=== PATIENT | female | born 1930 | race Caucasian/White ===

== ENCOUNTER 2016-09-03 08:40 | Inpatient (IN) | payer MEDICARE, OTHER ==
[~2016-09-03] VITALS: Ht 162.6 cm; Wt 64.0 kg
[2016-09-03] VITALS (50 sets, daily range): BP systolic 78–131; BP diastolic 43–71; PULSE 96–120; RESP 10–25; TEMP 98.1
[~2016-09-03 08:40] MED LIST: ACT35 PO; ADV25050 INH; BUS5 PO; CARV6.25 PO; CLON-379 PO; COSO10 LEFT EYE; EPHEDrine SULFATE 50 MG/5 ML SYG ONE; IMIP25TA3 PO; LATA2.5D9 LEFT EYE; LEVO75TA5 PO; LORA-441 PO; MIRA25TA PO; TIOT18CA IH; [UNRECOGNIZED DRUG - CODE] PO
[2016-09-03] MEDS ORDERED: SOD CHLORIDE 0.9% 1,000 ML IV STA (09:06)
[2016-09-03] MEDS ORDERED: morphine 4 MG/ML VIAL IV STA ×2 (09:06→13:43)
[2016-09-03] MEDS ORDERED: ONDANSETRON 4 MG INJ IV STA (09:06)
--- NOTE | 2016-09-03 09:10 | ERA ---
ER Documentation Chief Complaint Date/Time DATE: 09/03/16 TIME: 08:55 Chief Complaint abdomnal pain since last night and vomiting. no HPI 86-year-old female history of hypertension, dyslipidemia, depression, COPD and glaucoma ambulatory to the ED complaining of acute onset of moderate to severe, sharp and achy, generalized abdominal pain which localizes to the right lower quadrant. The pain started last night is become increasingly worse. Nausea with one episode of nonbloody nonbilious emesis but denies diarrhea or constipation. No relieving or exacerbating factors. No dysuria, polyuria, hematuria or flank pain. Denies chest pain or palpitations. No shortness of breath or cough. Chills but no fevers. ROS All systems reviewed and are negative except as per history of present illness. Medications Home Meds Active Scripts Clonidine Hcl* (Clonidine Hcl*) 0.1 Mg Tab, 0.1 MG PO BID for Blood Pressure> 200 Systolic, #10 TAB 4 Refills Prov:LONG DELACRUZ MD 02/13/15 Reported Medications Carvedilol* (Coreg*) 6.25 Mg Tablet, 6.25 MG PO BID, TAB 02/13/15 Salmeterol Xinaf/Fluticasone* (Advair*) 250-50 Diskus Inhaler, 1 INH INH BID, INH 02/13/15 Dorzolamide-Timolol* (Cosopt*) 2%-0.5% Soln, 1 DROP LEFT EYE BID, BOTTLE 02/01/15 Latanoprost (Xalatan) 2.5 Ml Drops, 1 DROP LEFT EYE DAILY 02/01/15 Imipramine Hcl* (Imipramine Hcl*) 25 Mg Tablet, 25 MG PO HS, TAB 02/01/15 Hyoscyamine Sulfate* (Hyoscyamine Sulfate* ODT) 0.125 Mg/Tab Tab.rapdis, 0.125 MG PO Q4H NEEDED, TAB 02/01/15 Levothyroxine Sodium* (Levothyroxine Sodium*) 75 Mcg Tablet, 75 MCG PO DAILY, TAB 02/01/15 Buspirone Hcl* (Buspar*) 5 Mg Tab, 5 MG PO BID, TAB 02/01/15 Mirabegron (Mybetriq) 25 Mg Tab.er.24h, 25 MG PO DAILY, TAB 6/29/15 Lorazepam* (Ativan*) 0.5 Mg Tablet, 0.5 MG PO HS Y for ANXIETY, TAB 02/01/15 Tiotropium [place]* (Spiriva*) 18 Mcg Cap.w.dev, 1 INH IH DAILY, EA 02/01/15 Risedronate* (Actonel*) 35 Mg Tablet, 35 MG PO Q7D, TAB ON Sunday02/01/15 Allergies Allergies: Coded Allergies: No Known Allergy (Unverified , 02/13/15) PMhx/Soc Reviewed in chart. As per HPI. History of Surgery: Yes (CATERACT) Anesthesia Reaction: No Hx Respiratory Disorders: Yes (COPD) Hx Cardiac Disorders: Yes Hx Psychiatric Problems: Yes (ANXIETY) Hx Miscellaneous Medical Probl: Yes (HYPOTHYROID, ANXIETY) Hx Alcohol Use: No Hx Substance Use: Yes (MEDICAL MJ) Hx Tobacco Use: No FmHx No stroke or cancer. Physical Exam Vitals Vital Signs Date Time Temp Pulse Resp B/P Pulse Ox O2 Delivery O2 Flow Rate FiO2 09/03/16 09:30 98.1 85 20 118/78 98 Room Air 09/03/16 08:44 98.0 61 21 95/54 98 Physical Exam GENERAL: Alert, moderate to severe distress due to pain. SKIN: Warm, dry, no rash, No petechiae. No ecchymoses or bruising. HEAD: Atraumatic NECK: Supple, no tenderness, full range of motion. No lymphadenopathy. EYES: Pupils are equal, round and reactive to light, extraocular movements are intact, Conjunctiva, not injected, sclera anicteric. ENT: Mucous membranes are moist. Pharynx is clear without erythema or exudate. CARDIOVASCULAR: Regular rate and rhythm, S1, S2, No murmurs, rubs or gallops. No edema Pulses are 4+ in all extremities. RESPIRATORY: Breath sounds are equal bilaterally. No rales, rhonchi or wheezes. CHEST WALL: No tenderness or deformity. No ecchymosis or bruising GASTROINTESTINAL: Soft, BS present, mildly distended. Moderate right lower quadrant tenderness with rebound but no guarding. No masses or abnormal pulsations.. BACK: No spinal tenderness or paraspinal muscle spasm. No costovertebral angle tenderness. MUSCULOSKELETAL: Normal ROM, no deformity. No calf swelling or tenderness, NEUROLOGIC: Alert and oriented. CN II-XII intact. No focal neurological deficit observed. Normal speech. LYMPHATICS: No gross cervical, axillary or inguinal lymphadenopathy. No Lymphedema. PSYCHIATRIC: Cooperative. Appropriate mood and affect. Patient appears anxious but not depressed.. Result Diagram: 09/03/1636 09/03/1636 Results 24 hrs Laboratory Tests Test 09/03/16 09:36 Alanine Aminotransferase (ALT/SGPT) 30IU/L Albumin 4.0g/dl Albumin/Globulin Ratio 1.05 Alkaline Phosphatase 79IU/L Anion Gap 20 Aspartate Amino Transf (AST/SGOT) 33IU/L Basophils # 0.010^3/ul Basophils % 0.1% Blood Morphology Comment Blood Urea Nitrogen 23mg/dl Calcium Level 9.5mg/dl Carbon Dioxide Level 23mmol/L Chloride Level 99mmol/L Creatinine 1.01mg/dl Direct Bilirubin 0.00mg/dl Eosinophils # 0.010^3/ul Eosinophils % 0.1% Globulin 3.80g/dl Glucose Level 188mg/dl Hematocrit 41.9% Hemoglobin 14.1g/dl Indirect Bilirubin 0.5mg/dl Lipase 46U/L Lymphocytes # 1.110^3/ul Lymphocytes % 7.9% Mean Corpuscular Hemoglobin 28.5pg Mean Corpuscular Hemoglobin Concent 33.6g/dl Mean Corpuscular Volume 84.8fl Mean Platelet Volume 8.7fl Monocytes # 0.310^3/ul Monocytes % 2.1% Neutrophils # 13.010^3/ul Neutrophils % 89.8% Nucleated Red Blood Cells # 0.010^3/ul Nucleated Red Blood Cells % 0.0/100WBC Platelet Count 72464^3/UL Potassium Level 4.6mmol/L Red Blood Count 4.9410^6/ul Red Cell Distribution Width 14.2% Sodium Level 137mmol/L Total Bilirubin 0.5mg/dl Total Protein 7.8g/dl Troponin I < 0.012ng/ml White Blood Count 14.510^3/ul Current Medications Medications (Trade) Dose Ordered Sig/Stephanie Route PRN Reason Start Time Stop Time Status Last Admin Dose Admin Sodium Chloride (NS) 1,000 ml @ 1,000 mls/hr Q1H STAT IV 09/03/16 09:06 09/03/16 10:05 DC 09/03/16 09:24 Morphine Sulfate (morphine) 4 mg ONCE STAT IV 09/03/16 09:06 09/03/16 09:08 DC 09/03/16 09:25 Ondansetron HCl (Zofran Inj) 4 mg ONCE STAT IV 09/03/16 09:06 09/03/16 09:08 DC 09/03/16 09:25 Iohexol 150 ml 150 ml STK-MED ONCE .ROUTE 09/03/16 10:29 09/03/16 10:30 DC Sodium Chloride 100 ml @ ud STK-MED ONCE .ROUTE 09/03/16 10:29 09/03/16 10:30 DC Piperacillin Sod/ Tazobactam Sod 100 ml @ 200 mls/hr ONCE ONCE IVPB 09/03/16 11:30 09/03/16 11:59 DC Dextrose/Sodium Chloride (D5-1/2ns) 1,000 ml @ 125 mls/hr Q8H ONCE IV 09/03/16 11:34 09/03/16 19:33 Ondansetron HCl (Zofran Inj) 4 mg BRIDGE ORDER PRN IV NAUSEA AND/OR VOMITING 09/03/16 12:00 09/04/16 11:59 Acetaminophen (Tylenol Tab) 650 mg ER BRIDGE PRN PO MILD PAIN/FEVER 09/03/16 12:00 09/04/16 11:59 EKG: TIME: 11:39. Sinus tachycardia. Left axis deviation. Q waves in leads V1 and V2. No acute ST segment elevation or depression. No ectopy. EP Interpretation: Abnormal EKG. IMAGING: PROCEDURE: CLINICAL INDICATION: Abdominal Pain TECHNIQUE: CT scan of the abdomen and pelvis with and without contrast was performed on a multidetector high-resolution CT scanner. The patient was scanned both before and following the uncomplicated intravenous administration of 100 cc of Omnipaque 300. Coronal and sagittal reformatted images were obtained from the axial source images. Images were reviewed on a high- resolution PACS workstation. The total exam CTDI equals 15.13 mGy and the total exam DLP equals 790.34 mGy-cm. COMPARISON: None. FINDINGS: CT abdomen: Bibasilar linear scarring and mild centrilobular emphysematous change. No pleural effusion or focal consolidation. The visualized is unremarkable with trace pericardial thickening/effusion. Coronary artery calcifications. The gallbladder is unremarkable. Several sub centimeter hypodensities throughout the right and left hepatic lobe too small to characterize though statistically representing simple cysts. The liver is otherwise normal in density and size. The spleen is normal in size and homogeneous in density. Trace perihepatic and perisplenic free fluid. The stomach is partially collapsed, but is grossly unremarkable. The adrenal glands are symmetric and normal. The kidneys demonstrate normal size, contour and perfusion. No parenchymal abnormality. Adjacent 1.1 and 1 cm right lower pole renal cortical cysts and 2.3 and 1.6 cm right upper and lower pole renal cortical cysts respectively. No renal calculus or obstructive uropathy or mass lesion is seen. The aorta is of normal caliber. Aortic vascular calcifications are present. There is no retroperitoneal lymphadenopathy. The kwadwo hepatis region is clear. The bowel and mesentery, as visualized, are equally unremarkable. CT pelvis: Dilated thick-walled appendix measuring 17 mm in diameter with surrounding inflammatory and phlegmonous changes. No free air or abscess. Small amount of free fluid in the right lower quadrant and pelvis compatible with acute appendicitis. Pericolonic soft tissue stranding in the right lower quadrant and right pericolic gutter. Marked retained fecal material within the colon. No bowel obstruction. The remaining intrapelvic The pelvic organs are normal. The pelvic sidewalls and inguinal regions are clear. The sigmoid colon and rectum are remarkable for sigmoid diverticulosis. Nonspecific calcification in the right inguinal region which may represent calcified lymph node or sequelae of prior infection. The surrounding osseous structures are remarkable for degenerative spondylosis of the spine. Bones: No osteolytic or osteoblastic lesion is detected. IMPRESSION: 1. thick-walled dilated appendix measuring 17 mm in diameter with extensive surrounding inflammatory change and small amount of free fluid in the pelvis and right pericolic gutter compatible with acute appendicitis. No free air or evidence of rupture. No evidence of abscess. 2. Chronic findings as discussed above. 3. Results were discussed with Long Delacruz 09/03/2016 11:14:30 AM . RPTAT: PP Physician Soraya Date Time Electronically viewed and signed by Physician Soraya on 09/03/2016 11:25 STEPHANIE/ Procedures/MDM DOCUMENTS REVIEWED: ED nurse, prior ED, prior records MEDICAL DECISION MAKIN-year-old female history of hypertension, dyslipidemia, depression, COPD and glaucoma ambulatory to the ED complaining of acute onset of moderate to severe, sharp and achy, generalized abdominal pain which localizes to the right lower quadrant. CT reveals a dilated appendix with inflammation consistent with acute appendicitis without perforation. Intravenous fluids and antibiotics initiated. Surgery consulted. Patient be admitted for urgent surgical intervention. Counseled patient regarding diagnosis, diagnostic results and plan for admission. CALLS/CONSULTS: Time 11:25, Dr. Khanna, Recommends admission to [facility]. CALLS/CONSULTS: Time 11:30, Dr. Quinn, will consult. PATIENT CARE TRANSITIONED: Time: 11:30, Dr. Khanna. Departure Diagnosis: Primary Impression: Acute appendicitis Qualified Code: K35.3 - Acute appendicitis with localized peritonitis Additional Impressions: Acute abdominal pain in right lower quadrant Hypertension Qualified Code: I10 - Essential hypertension Condition: Serious LONG DELACRUZ MD Sep 03, 2016 09:10
[2016-09-03 10:14] LABS: BASOPHILS % 0.1 % (0.0-2.0); EOSINOPHILS % 0.1 % (0.0-7.0); HEMATOCRIT 41.9 % (37.0-47.0); HEMOGLOBIN 14.1 g/dl (12.0-16.0); LYMPHOCYTES # 1.1 10^3/ul (0.8-2.9); LYMPHOCYTES % 7.9 % (15.0-51.0); MEAN CORPUSCULAR HEMOGLOBIN 28.5 pg (29.0-33.0); MEAN CORPUSCULAR HGB CONC 33.6 g/dl (32.0-37.0); MEAN CORPUSCULAR VOLUME 84.8 fl (82.0-101.0); MEAN PLATELET VOLUME 8.7 fl (7.4-10.4); MONOCYTE # 0.3 10^3/ul (0.3-0.9); MONOCYTES % 2.1 % (0.0-11.0); NEUTROPHILS % 89.8 % (39.0-77.0); PLATELET COUNT 221 10^3/UL (140-440); RED BLOOD COUNT 4.94 10^6/ul (4.20-5.40); RED CELL DISTRIBUTION WIDTH 14.2 % (11.5-14.5); UNCORRECTED WBC 14.5 10^3/ul (4.8-10.8); WHITE BLOOD COUNT 14.5 10^3/ul (4.8-10.8)
[2016-09-03 10:16] LABS: CHLORIDE 99 mmol/L (97-110)
[2016-09-03 10:17] LABS: POTASSIUM 4.6 mmol/L (3.5-5.1); SODIUM 137 mmol/L (135-144)
[2016-09-03 10:19] LABS: ALANINE AMINOTRANSFERASE 30 IU/L (13-69); ALBUMIN/GLOBULIN RATIO 1.05; ALKALINE PHOSPHATASE 79 IU/L (42-121); ANION GAP 20 (8-16); ASPARTATE AMINO TRANSFERASE 33 IU/L (15-46); BILIRUBIN,INDIRECT 0.5 mg/dl (0-1.1); BILIRUBIN,TOTAL 0.5 mg/dl (0.2-1.3); BLOOD UREA NITROGEN 23 mg/dl (7-20); CARBON DIOXIDE 23 mmol/L (21-31); CONDITION 1; CREATININE 1.01 mg/dl (0.44-1.00); TOTAL PROTEIN 7.8 g/dl (6.1-8.1)
[2016-09-03 10:20] LABS: CALCIUM 9.5 mg/dl (8.4-10.2); GLUCOSE 188 mg/dl (70-220)
[2016-09-03] MEDS ORDERED: IOHEXOL 300MG/ML 150 ML BTL ONE (10:29)
[2016-09-03] MEDS ORDERED: SOD CHLORIDE 0.9% 100 ML ONE (10:29)
[2016-09-03 11:10] LABS: TROPONIN-I < 0.012 ng/ml (0.00-0.12)
--- NOTE | 2016-09-03 11:25 | RADRPT ---
PROCEDURE: CLINICAL INDICATION: Abdominal Pain TECHNIQUE: CT scan of the abdomen and pelvis with and without contrast was performed on a multidet nuria high-resolution CT scanner. The patient was scanned both before and following the uncomplicat ed intravenous administration of 100 cc of Omnipaque 300. Coronal and sagittal reformatted images w ere obtained from the axial source images. Images were reviewed on a high-resolution PACS workstatio n. The total exam CTDI equals 15.13 mGy and the total exam DLP equals 790.34 mGy-cm. COMPARISON: None. FINDINGS: CT abdomen: Bibasilar linear scarring and mild centrilobular emphysematous change. No pleural effusion or focal consolidation. The visualized is unremarkable with trace pericardial thickening/effusion. Coronar y artery calcifications. The gallbladder is unremarkable. Several sub centimeter hypodensities throughout the right and left hepatic lobe too small to characterize though statistically representing simple cysts. The liver i s otherwise normal in density and size. The spleen is normal in size and homogeneous in density. Trace perihepatic and perisplenic free fluid. The stomach is partially collapsed, but is grossly un remarkable. The adrenal glands are symmetric and normal. The kidneys demonstrate normal size, contou r and perfusion. No parenchymal abnormality. Adjacent 1.1 and 1 cm right lower pole renal cortical cysts and 2.3 and 1.6 cm right upper and lower pole renal cortical cysts respectively. No renal kelly culus or obstructive uropathy or mass lesion is seen. The aorta is of normal caliber. Aortic vascular calcifications are present. There is no retroperito ruby lymphadenopathy. The kwadwo hepatis region is clear. The bowel and mesentery, as visualized, a re equally unremarkable. CT pelvis: Dilated thick-walled appendix measuring 17 mm in diameter with surrounding inflammatory and phlegmon ous changes. No free air or abscess. Small amount of free fluid in the right lower quadrant and pe lvis compatible with acute appendicitis. Pericolonic soft tissue stranding in the right lower quadra nt and right pericolic gutter. Marked retained fecal material within the colon. No bowel obstruction. The remaining intrapelvic The pelvic organs are normal. The pelvic sidewall s and inguinal regions are clear. The sigmoid colon and rectum are remarkable for sigmoid diverticu losis. Nonspecific calcification in the right inguinal region which may represent calcified lymph n ode or sequelae of prior infection. The surrounding osseous structures are remarkable for degenerative spondylosis of the spine. Bones: No osteolytic or osteoblastic lesion is detected. IMPRESSION: 1. thick-walled dilated appendix measuring 17 mm in diameter with extensive surrounding inflammator y change and small amount of free fluid in the pelvis and right pericolic gutter compatible with acu te appendicitis. No free air or evidence of rupture. No evidence of abscess. 2. Chronic findings as discussed above. 3. Results were discussed with Mario Murcia 09/03/2016 11:14:30 AM . RPTAT: PP Physician Soraya Date Time Electronically viewed and signed by Physician Soraya on 09/03/2016 11:25 STEPHANIE/
[2016-09-03] MEDS ORDERED: PIPER-TAZO 3.375 GM IV (PMX) 100 ML IVPB ONE (11:30)
[2016-09-03] MEDS ORDERED: DEXTROSE 5%-0.45% NACL 1,000 ML IV ONE (11:34)
[2016-09-03] MEDS ORDERED: ONDANSETRON 4 MG INJ IV PRN ×4 (12:00→17:00)
[2016-09-03] MEDS ORDERED: ACETAMINOPHEN 325 MG TAB PO PRN ×2 (12:00→15:30)
--- NOTE | 2016-09-03 12:17 | RADRPT ---
PROCEDURE: XR Chest. CLINICAL INDICATION: Abdominal pain. TECHNIQUE: Single AP portable chest COMPARISON: 02/01/2015 FINDINGS: The cardiomediastinal silhouette is within normal limits. Coarse interstitial fibrotic change with b ibasilar linear scarring and/or atelectasis. .The lungs are clear though pleural effusion or focal consolidation. No pneumothorax. The osseous structures and soft tissues are unremarkable. IMPRESSION: 1. No evidence for active cardiopulmonary disease. RPTAT:AAJJ Samuel Viveros Physician Date Time Electronically viewed and signed by Physician Soraya on 09/03/2016 12:16 STEPHANIE/
[2016-09-03] MEDS ORDERED: LIDOCAINE 1% (STERILE-PAK) 30 ML INJ ONE (14:40)
[2016-09-03] MEDS ORDERED: BUPIVACAINE 0.25%/EPI (SDV) 30 ML INJ ONE (14:40)
[2016-09-03 14:41] LABS: INR 1.03; PARTIAL THROMBOPLASTIN TIME 28.3 Sec (25.0-35.0); PROTIME 13.5 Sec (12.2-14.2); PT RATIO 1.1
[2016-09-03 14:42] LABS: ADD UMIC YES; URINE BILIRUBIN (Dip) NEGATIVE (NEGATIVE); URINE BLOOD (Dip) TRACE (NEGATIVE); URINE COLOR YELLOW (YELLOW); URINE GLUCOSE (Dip) NEGATIVE (NEGATIVE); URINE KETONES (Dip) NEGATIVE (NEGATIVE); URINE LEUKOCYTE ESTERASE (Dip) NEGATIVE (NEGATIVE); URINE NITRITE (Dip) NEGATIVE (NEGATIVE); URINE TOTAL PROTEIN (Dip) TRACE (NEGATIVE); URINE UROBILINOGEN (Dip) 0.2 E.U./dL (0.1-1.0)
[2016-09-03 14:46] LABS: SQUAMOUS EPITHELIAL CELL,UR FEW; URINE RBCS NONE SEEN /HPF (0)
[2016-09-03] MEDS ORDERED: DEXTROSE 5%-0.45% NACL 1,000 ML IV SCH ×2 (15:04→15:30)
[2016-09-03] MEDS ORDERED: morphine 2 MG INJ IV PRN (15:30)
[2016-09-03] MEDS ORDERED: IBUPROFEN 600 MG TAB PO PRN (15:30)
[2016-09-03] MEDS ORDERED: SUCCINYLCHOLINE CHLORIDE 100 MG/5 ML SYG IV ONE (15:32)
[2016-09-03] MEDS ORDERED: PROPOFOL 20 ML ONE (15:32)
[2016-09-03] MEDS ORDERED: LIDOCAINE 2% (SDV) 5 ML INJ ONE (15:32)
[2016-09-03] MEDS ORDERED: FENTAnyl 50 MCG/ML VIAL ONE (15:33)
[2016-09-03] MEDS ORDERED: PHENYLephrine (100 MCG/ML) 5ML SYG ONE (15:36)
[2016-09-03] MEDS ORDERED: ETOMIDATE 20 MG INJ ONE (15:39)
[2016-09-03] MEDS ORDERED: ONDANSETRON 4 MG INJ ONE (16:01)
[2016-09-03] MEDS ORDERED: DEXAMETHASONE 4 MG/ML 1 ML INJ ONE (16:01)
[2016-09-03] MEDS ORDERED: GLYCOPYRROLATE 0.4 MG INJ ONE ×2 (16:09→16:15)
[2016-09-03] MEDS ORDERED: NEOSTIGMINE 3 MG/3 ML SYRINGE ONE ×2 (16:09→16:15)
[2016-09-03] MEDS ORDERED: HYDROmorphONE (0.2 MG/ML) 10ML SYG IV PRN ×2 (17:00)
[2016-09-03] MEDS ORDERED: FENTAnyl 50 MCG/ML VIAL IV PRN (17:00)
[2016-09-03 17:18] LABS: ADD UMIC YES; URINE BILIRUBIN (Dip) NEGATIVE (NEGATIVE); URINE BLOOD (Dip) 1+ (NEGATIVE); URINE COLOR LT. YELLOW (YELLOW); URINE GLUCOSE (Dip) NEGATIVE (NEGATIVE); URINE KETONES (Dip) NEGATIVE (NEGATIVE); URINE LEUKOCYTE ESTERASE (Dip) NEGATIVE (NEGATIVE); URINE NITRITE (Dip) NEGATIVE (NEGATIVE); URINE TOTAL PROTEIN (Dip) NEGATIVE (NEGATIVE); URINE UROBILINOGEN (Dip) 0.2 E.U./dL (0.1-1.0)
[2016-09-03 17:54] LABS: BACTERIA,URINE RARE; RENAL EPITHELIAL CELLS,URINE RARE
[2016-09-03] MEDS ORDERED: SOD CHLORIDE 0.9% 500 ML IV ONE (18:00)
[2016-09-03] MEDS ORDERED: PIPER-TAZO 3.375 GM IV (PMX) 100 ML IVPB SCH (18:00)
[2016-09-03] MEDS ORDERED: ALBUMIN HUMAN 5% 250 ML ONE (18:05)
[2016-09-03] MEDS ORDERED: EPHEDrine SULFATE 50 MG/5 ML SYG ONE (18:23)
[2016-09-03] MEDS ORDERED: ALBUMIN HUMAN 5% 250 ML IV ONE (18:30)
[2016-09-03] MEDS ORDERED: EPHEDrine SULFATE 50 MG/5 ML SYG IV PRN (18:30)
[2016-09-03] MEDS ORDERED: NORepinephrine 8MG/250 ML (PMX 250 ML IV SCH (19:30)
[2016-09-03] MEDS: SOD CHLORIDE 0.9% 1,000 ML IV SCH (19:30)
[2016-09-03] MEDS ORDERED: ACETAMINOPHEN 1000MG/100ML IV 100 ML IVPB PRN (19:30)
--- NOTE | 2016-09-03 19:40 | CONS ---
DATE OF ADMISSION: 09/03/2016 DATE OF CONSULTATION: 09/03/2016 HISTORY OF PRESENT ILLNESS: Ms. Aguila is an 86-year-old female who had acute onset of generalize d abdominal pain yesterday. Her symptoms persisted overnight and she presented to the emergency alena m at [facility]. She had nausea and 1 episode of emesis. She denies fevers, chil ls or night sweats. Denies prior episodes. Her workup was consistent with acute appendicitis and I was called for consultation. PAST MEDICAL HISTORY: Significant for hypertension, dyslipidemia, depression, COPD, emphysema, glau coma, and hypothyroidism. MEDICATIONS: She takes: 1. Clonidine. 2. Carvedilol. 3. ____ 4. Advair. 5. ____ 6. Xalatan. 7. Imipramine 8. Levothyroxine. 9. BuSpar. 10. Lorazepam. 11. Spiriva. 12. Actonel. ALLERGIES: NO KNOWN DRUG ALLERGIES. PAST SURGICAL HISTORY: She had cataract surgery as well. SOCIAL HISTORY: She drinks occasionally. Denies smoking or drug use. PHYSICAL EXAMINATION: GENERAL: She is a well-nourished female in some mild distress. VITAL SIGNS: She is currently afebrile. Vital signs stable. CHEST: Clear to auscultation bilaterally. HEART: Regular rhythm. ABDOMEN: Soft, nondistended but significant right lower quadrant tenderness. LABORATORY DATA: Reveal a white count of 15, hematocrit of 42, platelets of 221. Sodium 137, potas sium 4.6, chloride 99, CO2 of 23, BUN and creatinine 23 and 1, and glucose of 188. Her CT is consis tent with acute appendicitis. ASSESSMENT AND PLAN: Ms. Aguila is an 86-year-old female with acute appendicitis. I discussed la paroscopic, possible open appendectomy with the patient and her family. All benefits, risks, altern atives were discussed in detail, questions answered. The patient elected to proceed. Dictated By: TRISTAN MYLES/NTS Conf#: [id number] DID#: [id number]
[2016-09-03] MEDS ORDERED: NORepinephrine 8MG/250 ML (PMX 250 ML ONE (19:48)
--- NOTE | 2016-09-03 20:13 | OPR ---
DATE OF OPERATION: 09/03/2016 PREOPERATIVE DIAGNOSIS: Acute appendicitis. POSTOPERATIVE DIAGNOSIS: Acute appendicitis. PROCEDURE: Laparoscopic appendectomy. SURGEON: Tristan Quinn MD CASTING AND PASTING SUPERVISOR: None. ANESTHESIA: General endotracheal. ANESTHESIOLOGIST: Dr. Burks ESTIMATED BLOOD LOSS: Minimal. COMPLICATIONS: None. SPECIMENS: Appendix. FINDINGS: Necrotic appendix but not perforated. INDICATIONS: Ms. Aguila is an 86-year-old female with acute onset of generalized abdominal pain l ocalizing to her lower abdomen. She came to the ER at [facility]. Her workup was consistent with acute appendicitis. I was called for consultation. I discussed laparoscopic, poss ible open appendectomy with the patient. All benefits, risks, alternatives were discussed in detail , questions answered. The patient elected to proceed. PROCEDURE: The patient was brought to the operating room, placed supine on the table. After preope rative antibiotics and SCDs were placed, the patient was intubated. The abdomen was cleaned, preppe d and draped in usual sterile fashion. All incisions were infiltrated with 1% lidocaine with epinep hrine, 0.5% Marcaine prior to incision. A 5 mm incision was made in the umbilicus. Using a 5 mm la paroscope containing trocar, the abdomen was entered under direct vision, insufflated to 15 mmHg of CO2. The following trocars were then placed under direct vision: A right lower quadrant 5 mm, a le ft lower quadrant 12 mm. Emanating from the cecum was an obvious acute appendicitis. It was not ru ptured or perforated but necrotic. The base was not involved, and I was able to make a rent at the base of the mesentery and divide the cecum at the base of the appendix with a 35 mm Endo linear cutt er white load. The appendiceal mesentery was then divided with a 35 mm Endo linear cutter white margaret d. The appendix was placed in EndoCatch bag, removed from 12 mm trocar site. I irrigated out the r ight lower quadrant and pelvis until effluent was clear. At this point, I noted there was some oozi ng from the staple lines which was controlled with 10 mm clip gas regulator repairer. At this point, I irrigated o ut the pelvis and right lower quadrant once again until effluent was clear. My staple lines were he mostatic. I desufflated the abdomen and removed all trocars. Fascia of the 12 mm trocar site was c losed with 0 Vicryl. Skin incisions were closed with 4-0 Monocryl, Mastisol, Steri-Strips. The pat ient tolerated procedure well, was extubated in the OR and transferred to recovery room in stable co ndition. Dictated By: TRISTAN MYLES/VU Conf#: [id number] DID#: [id number]
[2016-09-03] MEDS ORDERED: PIPER-TAZO 3.375 GM IV (PMX) 0 ML ONE (21:54)
[2016-09-03] MEDS ORDERED: DOCUSATE SODIUM 100 MG CAP PO ONE (21:55)
[2016-09-03] MEDS: PIPER-TAZO 3.375 GM IV (PMX) 100 ML IVPB SCH (21:56)
[2016-09-03] MEDS: DOCUSATE SODIUM 100 MG CAP PO SCH (21:57)
[2016-09-03] MEDS: FAMOTIDINE 20 MG INJ IV SCH (22:22)
[2016-09-03] MEDS ORDERED: morphine 2 MG INJ ONE (22:53)
[2016-09-03] MEDS: morphine 2 MG INJ IV PRN (22:55)
[2016-09-04] VITALS (45 sets, daily range): BP systolic 100–141; BP diastolic 54–102; PULSE 94–103; RESP 12–29; Ht 162.6 cm; Wt 64.0 kg
[2016-09-04] MEDS: SOD CHLORIDE 0.9% 1,000 ML IV SCH (03:30)
[2016-09-04] MEDS: morphine 2 MG INJ IV PRN ×2 (04:13→11:50)
[2016-09-04] MEDS: PIPER-TAZO 3.375 GM IV (PMX) 100 ML IVPB SCH ×3 (06:10→21:22)
--- NOTE | 2016-09-04 06:57 | HP ---
DATE OF ADMISSION: 09/03/2016 PRESENTING COMPLAINT: Abdominal pain. HISTORY OF PRESENTING COMPLAINT: Ms. Aguila is an 86-year-old female with a past medical history of high blood pressure and dyslipidemia who presents to emergency room today, brought in by her daug hter, because of acute onset of right lower quadrant abdominal pain that started out generalized and was associated with 1 episode of nonbilious vomiting. The patient denies history of similar sympto ms in the past, and a CT scan of the ____ was confirmatory of an enlarged and inflamed appendix, and patient has been admitted for acute appendicitis. PAST MEDICAL HISTORY: 1. Hypertension. 2. Dyslipidemia. 3. Depression. 4. COPD. 5. Glaucoma. 6. Positive history of hypothyroidism as well as ____ per record. HOME MEDICATIONS: 1. Coreg 6.25 b.i.d. 2. Advair inhalation 1 inhalation b.i.d. 3. Dorzolamide/timolol to left eye. 4. Xalatan 1 drop left eye daily. 5. Imipramine 25 mg p.o. at bedtime. 6. ____ sulfate as needed. 7. Levothyroxine 75 mcg daily. 8. BuSpar 5 mg b.i.d. 9. Myrbetriq 25 mg daily. 10. Lorazepam as needed. 11. Spiriva 1 inhalation daily. 12. Actonel 35 mg every week. ALLERGIES: SHE HAS NO KNOWN DRUG ALLERGIES. SOCIAL HISTORY: The patient is a previous smoker, does not smoke anymore. Denies alcohol or illic it drug use. The patient also will use medical marijuana as needed. FAMILY HISTORY: Noncontributory. REVIEW OF SYSTEMS: I did a 12-point review of systems, and pertinent findings are as noted in HPI. PHYSICAL EXAMINATION: VITAL SIGNS: Temperature 98.1, pulse 85, respirations 20, blood pressure 118/78, saturation 98% on room air. GENERAL: The patient was alert. She was slightly sleepy. She had been medicated for pain, but she was able to participate in history taking. She was in mild distress. HEENT: Head is normocephalic. Pupils are equal, round and reactive. Mucous membranes are slightly dry. Posterior pharynx was clear of exudate. NECK: Supple, nontender. CHEST: Clear to auscultation with fairly quiet breath sounds bilaterally. CARDIOVASCULAR: S1 and S2 without murmurs. ABDOMEN: Soft with minimal guarding in right lower quadrant but no masses. Bowel sounds all quadra nts. EXTREMITIES: There was no lower extremity edema. NEUROLOGIC: She had no focal deficits. SKIN: Devoid of rash or jaundice. LABORATORY VALUES: Leukocytosis of 14,000 was noted. The rest of her CBC was basically unremarkabl e, but her basic metabolic profile was ____ for a BUN of 23 and a creatinine of 0.01. Her LFTs were normal. Her first troponin was negative. Lipase levels were normal as well. Immediately she was medicated for pain with morphine and started on broad spectrum antibiotic with Z osyn as well as given IV fluid, dextrose with half-normal saline. IMAGING: A CT of the abdomen and pelvis as reported earlier did show a dilated ____ appendix measur ing 17 mm in diameter with surrounding inflammatory and phlegmonous changes. No free air or abscess . Small amount of free fluid in right lower quadrant and pelvis compatible with an active appendici tis. Mild retained fecal material within the colon, another nonspecific finding. A chest x-ray did not show any acute cardiopulmonary deficits on my review. An EKG was pending at the time of my review. ASSESSMENT: An 86-year-old female with: 1. Acute appendicitis. 2. Leukocytosis secondary to #1. 3. Hypertension. 4. Hypothyroidism. 5. Chronic obstructive pulmonary disease. 6. Glaucoma. 7. Depression. 8. Mild acute renal insufficiency, rule out chronic kidney disease. 9. Constipation. PLAN: Admit the patient to the floor and continue empiric antibiotics as well as IV fluid and pain control. General surgeon Dr. Quinn has been consulted. He will review the patient, and it is my u nderstanding that he has planned surgery for about 3:00 this afternoon. We will keep patient n.p.o. and await his review and final recommendation. Postoperatively, we will resume patient's other herb e medications as tolerated, and further interventions will depend on her clinical course. For proph ylaxis, she will be put on Pepcid and SCDs. Overall evaluation time has been about 40 minutes. Addendum: I was called to review patient in the PACU postoperatively because of persistent blood pr essure in the 80s. Upon speaking to the nurse at bedside, the patient had received a total of 3500 mL of different kinds of fluid including normal saline as well as lactated Ringer's, and her systoli c blood pressure still kept fluctuating in the 70s and 80s with heart rate in the low 100s. The pat cherry, however, had no symptoms. The nurses had put her in the Trendelenburg position, and she was c omfortable. She also denied pain at her operative site. After ____ I made a decision to transfer t he patient to the intensive care unit for close observation and monitoring. The patient was not sta rted on pressor support at this time. I will attempt another fluid bolus with normal saline of only 500 mL to prevent fluid overload, and I will maintain her on normal saline infusion. I, however, o rdered Levophed to be commenced to maintain the patient's systolic blood pressure 80 mmHg or more, a nd I will be ordering a 2D echo for further evaluation and will see how she does. Dictated By: CARLITO HINES MD, BA/VU Conf#: [id number] DID#: [id number]
[2016-09-04] MEDS ORDERED: PHENTOLAMINE 5 MG INJ SC ONE (08:00)
[2016-09-04] MEDS: ENOXAPARIN 40 MG/0.4 ML SYG SC SCH (08:30)
[2016-09-04] MEDS: DOCUSATE SODIUM 100 MG CAP PO SCH ×2 (09:00→21:00)
[2016-09-04] MEDS: FAMOTIDINE 20 MG INJ IV SCH ×2 (09:00→21:22)
[2016-09-04 09:54] LABS: BASOPHILS % 0.1 % (0.0-2.0); HEMATOCRIT 37.1 % (37.0-47.0); HEMOGLOBIN 12.5 g/dl (12.0-16.0); LYMPHOCYTES # 1.1 10^3/ul (0.8-2.9); LYMPHOCYTES % 6.4 % (15.0-51.0); MEAN CORPUSCULAR HEMOGLOBIN 28.6 pg (29.0-33.0); MEAN CORPUSCULAR HGB CONC 33.7 g/dl (32.0-37.0); MEAN CORPUSCULAR VOLUME 84.9 fl (82.0-101.0); MEAN PLATELET VOLUME 8.4 fl (7.4-10.4); MONOCYTES % 5.9 % (0.0-11.0); NEUTROPHIL # 14.9 10^3/ul (1.6-7.5); NEUTROPHILS % 87.6 % (39.0-77.0); PLATELET COUNT 149 10^3/UL (140-440); RED BLOOD COUNT 4.37 10^6/ul (4.20-5.40); RED CELL DISTRIBUTION WIDTH 14.8 % (11.5-14.5)
[2016-09-04 09:56] LABS: CONDITION 1; LH ANALYZER COMMENTS 1; SUSPECT 1
--- NOTE | 2016-09-04 13:22 | PN ---
DATE: 09/04/2016 SUBJECTIVE: The patient complaining of some abdominal discomfort and pain at times. She says she i s passing minimal gas, still on pressor support. OBJECTIVE VITAL SIGNS: Stable, saturating at 94% on 3 liters nasal cannula. GENERAL: The patient is lying in bed, answering questions appropriately, in mild distress but alert . HEENT: Pupils equal, round, react to light. Extraocular muscles intact. NECK: Supple, no thyromegaly. LUNGS: Clear to auscultation bilaterally. CARDIOVASCULAR: S1, S2 heard. No rubs or gallops. ABDOMEN: Tenderness to palpation, slightly distended in the mid abdomen area, but otherwise no rebo und or guarding. Normal bowel sounds. MUSCULOSKELETAL: No lower extremity edema bilaterally. NEUROLOGIC: No focal deficits. LABORATORY DATA: CBC shows WBC 17.0, hemoglobin 12.5, hematocrit 37.1, platelets of 149. There is no BMP from this morning. ASSESSMENT AND PLAN: 1. An 86-year-old female with history of hypertension, high cholesterol who presented with acute ap pendicitis status post laparoscopic appendectomy. Now with some postop hypotension. 2. Again, abdominal pain secondary to appendicitis. Again, she underwent laparoscopic appendectomy yesterday, postop day #1. Continue ICU care for now as her blood pressure is low. Follow up gener al surgery recommendations. She is on a clear liquid diet for now, antiemetic and pain medicines fo r control of those symptoms. 3. Hypotension. Again, appears to be postop. She did get IV fluids yesterday. Again, continue pr esent support. Try to wean down as tolerated. Continue to monitor for now. 4. Leukocytosis, most likely secondary to #1. There are no signs of any fevers. Continue to monit or for now, especially given her hypotension. 5. Mild renal insufficiency, resolving. Continue to monitor for now. 6. History of high cholesterol. Check a lipid panel. Continue to monitor for now. 7. Hypertension. Again, the patient is hypotensive at this time. Hold blood pressure medicines. 8. History of chronic obstructive pulmonary disease, no present issues. Continue DuoNeb p.r.n. 9. History of depression. Continue to monitor for now. 10. Hypothyroidism. Check thyroid panel. 11. Gastrointestinal prophylaxis. H2 gavin. 12. Deep venous thrombosis prophylaxis, Lovenox. TIME SPENT WITH PATIENT TODAY: 40 minutes. Dictated By: LUIS DANIEL RICHARDSON Conf#: [id number] DID#: [id number]
[2016-09-04] MEDS: HYDROCODONE/APAP (5/325) TAB PO PRN ×2 (14:05→22:44)
[2016-09-04 14:12] LABS: ALBUMIN 3.2 g/dl (3.3-4.9); POTASSIUM 4.4 mmol/L (3.5-5.1)
[2016-09-04 14:14] LABS: CREATININE 0.79 mg/dl (0.44-1.00)
[2016-09-04 14:15] LABS: ALBUMIN/GLOBULIN RATIO 0.91; BILIRUBIN,INDIRECT 0.2 mg/dl (0-1.1); BILIRUBIN,TOTAL 0.2 mg/dl (0.2-1.3); CALCIUM 7.9 mg/dl (8.4-10.2); TOTAL PROTEIN 6.7 g/dl (6.1-8.1)
[2016-09-04 14:16] LABS: MAGNESIUM 1.4 mg/dl (1.7-2.5)
[2016-09-04 15:31] LABS: HEMATOCRIT 40.1 % (37.0-47.0); HEMOGLOBIN 12.8 g/dl (12.0-16.0); MEAN CORPUSCULAR HEMOGLOBIN 28.2 pg (29.0-33.0); MEAN CORPUSCULAR VOLUME 87.9 fl (82.0-101.0); MEAN PLATELET VOLUME 9.5 fl (7.4-10.4); PLATELET COUNT 128 10^3/UL (140-440); RED BLOOD COUNT 4.56 10^6/ul (4.20-5.40); RED CELL DISTRIBUTION WIDTH 14.7 % (11.5-14.5); UNCORRECTED WBC 17.5 10^3/ul (4.8-10.8); WHITE BLOOD COUNT 17.5 10^3/ul (4.8-10.8)
[2016-09-04 15:34] LABS: CONDITION 1; LH ANALYZER COMMENTS 1; SUSPECT 1
[2016-09-04 16:49] LABS: LYMPHOCYTES # 1.4 10^3/ul (0.8-2.9); MONOCYTE # 1.1 10^3/ul (0.3-0.9); NEUTROPHIL # 10.2 10^3/ul (1.6-7.5)
[2016-09-04 16:50] LABS: BURR CELLS 1+
--- NOTE | 2016-09-05 04:53 | PN ---
DATE: 09/04/2016 SUBJECTIVE: Ms. Aguila is a postoperative day 1 from a laparoscopic appendectomy. The patient is feeling hungry. She is tolerating clears. OBJECTIVE VITAL SIGNS: She is afebrile. Vital signs stable. ABDOMEN: Soft and nontender, with some bilateral lower quadrant tenderness. LABORATORY DATA: Reveal a white count of 17, hematocrit of 40, and platelets of 128. Sodium 139, p otassium 4.4, chloride 104, CO2 of 21, BUN and creatinine of 15 and 0.8 and glucose of 102. ASSESSMENT AND PLAN: Ms. Aguila is an 86-year-old female with status post a laparoscopic appendec dolores. 1. She was moved to the Intensive Care Unit for , which is resolved. 2. She has good urine output today, which is over 1700 mL. 3. Continue antibiotics. 4. Will likely be able to be discharged on Sunday. Dictated By: TRISTAN MYLES/VU Conf#: [id number] DID#: [id number]
[2016-09-05] MEDS: PIPER-TAZO 3.375 GM IV (PMX) 100 ML IVPB SCH ×3 (06:34→22:45)
[2016-09-05] MEDS: ENOXAPARIN 40 MG/0.4 ML SYG SC SCH (06:36)
[2016-09-05 07:55] VITALS: BP 109/55; RESP 20
[2016-09-05 08:00] VITALS: RESP 20
[2016-09-05] MEDS: DOCUSATE SODIUM 100 MG CAP PO SCH ×2 (08:47→20:39)
[2016-09-05] MEDS: FAMOTIDINE 20 MG INJ IV SCH ×2 (08:47→20:39)
[2016-09-05 10:45] LABS: HEMATOCRIT 37.2 % (37.0-47.0); HEMOGLOBIN 12.1 g/dl (12.0-16.0); MEAN CORPUSCULAR HEMOGLOBIN 28.2 pg (29.0-33.0); MEAN CORPUSCULAR HGB CONC 32.5 g/dl (32.0-37.0); MEAN PLATELET VOLUME 8.8 fl (7.4-10.4); PLATELET COUNT 172 10^3/UL (140-440); RED BLOOD COUNT 4.27 10^6/ul (4.20-5.40); RED CELL DISTRIBUTION WIDTH 14.6 % (11.5-14.5); UNCORRECTED WBC 21.3 10^3/ul (4.8-10.8); WHITE BLOOD COUNT 21.3 10^3/ul (4.8-10.8)
[2016-09-05 11:03] LABS: CONDITION 1; LH ANALYZER COMMENTS 1; SUSPECT 1
[2016-09-05 11:04] LABS: POTASSIUM 3.6 mmol/L (3.5-5.1)
[2016-09-05 11:07] LABS: CREATININE 0.88 mg/dl (0.44-1.00)
[2016-09-05 11:08] LABS: CALCIUM 8.1 mg/dl (8.4-10.2)
--- NOTE | 2016-09-05 11:10 | PN ---
Date/Time of Note Date/Time of Note DATE: 09/05/16 TIME: 11:07 Assessment/Plan VTE Prophylaxis VTE Prophylaxis Intervention: LMWH Lines/Catheters IV [facility] Saline Lock Urinary Cath still in place: Yes Reason Cath still needed: urinary retention Assessment/Plan Chief Complaint/Hosp Course ASSESSMENT AND PLAN: 86-year-old female with history of hypertension, high cholesterol who presented with acute appendicitis status post laparoscopic appendectomy, with some postop hypotension - resolved. 1. Again, abdominal pain secondary to appendicitis. Again, she underwent laparoscopic appendectomy yesterday, postop day # 2. - continue PT, Follow up general surgery recommendations. - soft diet for now, antiemetic and pain medicines for control of those symptoms. 3. Hypotension. Again, appears to be postop- and now resolved. She did get IV fluids yesterday. - Continue to monitor for now. 4. Leukocytosis, most likely secondary to #1. There are no signs of any fevers. - Continue to monitor for now. 5. Mild renal insufficiency, resolving. Continue to monitor for now. 6. History of high cholesterol. Check a lipid panel. Continue to monitor for now. 7. Hypertension. Again, the patient is hypotensive at this time. Hold blood pressure medicines. 8. History of chronic obstructive pulmonary disease, no present issues. Continue DuoNeb p.r.n. 9. History of depression. Continue to monitor for now. 10. Hypothyroidism- f/u thyroid panel. 11. Gastrointestinal prophylaxis. H2 gavin. 12. Deep venous thrombosis prophylaxis, Lovenox. Problems: Subjective 24 Hr Interval Summary Free Text/Dictation Pt out of ICU now, seen by surgery team, no acute events overnight. Exam/Review of Systems Vital Signs Vitals Vital Signs Date Time Temp Pulse Resp B/P Pulse Ox O2 Delivery O2 Flow Rate FiO2 09/05/16 07:55 98.2 105 20 109/55 81 09/05/16 02:20 5.0 09/04/16 20:12 40 09/04/16 20:00 Nasal Cannula Intake and Output 09/04/16 09/04/16 09/05/16 15:00 23:00 07:00 Intake Total 530 ml 210 ml 1420 ml Output Total 536 ml 155 ml 700 ml Balance -6 ml 55 ml 720 ml Exam GENERAL: The patient is lying in bed, answering questions appropriately, NAD HEENT: Pupils equal, round, react to light. Extraocular muscles intact. NECK: Supple, no thyromegaly. LUNGS: Clear to auscultation bilaterally. CARDIOVASCULAR: S1, S2 heard. No rubs or gallops. ABDOMEN: Tenderness to palpation, slightly distended in the mid abdomen area, but otherwise no rebound or guarding. Normal bowel sounds. MUSCULOSKELETAL: No lower extremity edema bilaterally. NEUROLOGIC: No focal deficits. Results Result Diagram: 09/05/16 1005 09/04/16 0923 Results 24 hrs Laboratory Tests Test 09/04/16 13:15 09/05/16 10:05 Band Neutrophils % 28.0 H Blood Morphology Comment Hematocrit 40.1 37.2 Hemoglobin 12.8 12.1 Lymphocytes # 1.4 Pending Lymphocytes % 8.0 L Pending Mean Corpuscular Hemoglobin 28.2 L 28.2 L Mean Corpuscular Hemoglobin Concent 32.0 32.5 Mean Corpuscular Volume 87.9 87.0 Mean Platelet Volume 9.5 8.8 Monocytes # 1.1 H Pending Monocytes % 6.0 Pending Neutrophils # 10.2 H Pending Neutrophils % 58.0 Pending Platelet Count 128 L 172 # Red Blood Count 4.56 4.27 Red Cell Distribution Width 14.7 H 14.6 H White Blood Count 17.5 H 21.3 #H Basophils # Pending Basophils % Pending Eosinophils # Pending Eosinophils % Pending Nucleated Red Blood Cells # Pending Nucleated Red Blood Cells % Pending Medications Medications Current Medications Piperacillin Sod/ Tazobactam Sod (Zosyn 3.375gm/ 100 ml (Pmx)) 100 ml @ 200 mls /hr Q8 IVPB Last administered on 09/05/16 06:34; Admin Dose 200 MLS/HR; Start 09/03/16 at 22:00 Famotidine (Pepcid Iv) 20 mg BID IV Last administered on 09/05/16 08:47; Admin Dose 20 MG; Start 09/03/16 at 21:00 Docusate Sodium (Colace) 100 mg BID PO Last administered on 09/05/16 08:47; Admin Dose 100 MG; Start 09/03/16 at 21:00 Ondansetron HCl (Zofran Inj) 4 mg Q6H PRN IV NAUSEA AND/OR VOMITING; Start at 15:30 Acetaminophen (Tylenol Tab) 650 mg Q6H PRN PO PAIN LEVEL 1-3 OR FEVER; Start at 15:30 Ibuprofen (Motrin) 600 mg Q6H PRN PO PAIN LEVEL 1-3; Start 09/03/16 at 15:30 Morphine Sulfate (morphine) 2 mg Q2H PRN IV PAIN LEVEL 8-10 Last administered on 09/04/16 11:50; Admin Dose 2 MG; Start 09/03/16 at 15:30 Acetaminophen/ Hydrocodone Bitart ([place] (5/325)) 1 tab Q6H PRN PO PAIN LEVEL 4 -7 Last administered on 09/04/16 22:44; Admin Dose 1 TAB; Start 09/03/16 at 15: 30 Enoxaparin Sodium (Lovenox) 40 mg DAILY@07 SC Last administered on 09/05/16 06 :36; Admin Dose 40 MG; Start 09/04/16 at 07:00 LUIS DANIEL MICHEL Sep 05, 2016 11:10
[2016-09-05] MEDS: HYDROCODONE/APAP (5/325) TAB PO PRN (11:53)
[2016-09-05 13:50] LABS: LYMPHOCYTES # 2.3 10^3/ul (0.8-2.9); MONOCYTE # 0.6 10^3/ul (0.3-0.9); NEUTROPHIL # 14.7 10^3/ul (1.6-7.5)
[2016-09-05] MEDS ORDERED: ALBUTEROL/IPRATROPIUM (NEB) 3 ML AMP HHN PRN (15:00)
--- NOTE | 2016-09-05 16:58 | RADRPT ---
PROCEDURE: XR Chest. CLINICAL INDICATION: Shortness of breath. TECHNIQUE: Single frontal view. COMPARISON: 09/03/2016. FINDINGS: There is consolidation at the right lung base consistent with pneumonia, worse than seen previously. There is left basilar atelectasis or pneumonia, also worse than seen previously. The heart size is normal. There are small bilateral pleural effusions. There is no pneumothorax. IMPRESSION: 1. Worse appearance of the lung bases consistent with atelectasis or pneumonia. Right is worse chantelle n left. 2. Small bilateral pleural effusions. RPTAT: QQ .Elvis Henderson MD, MD Date Time Electronically viewed and signed by .Elvis Henderson MD, on 09/05/2016 16:58 .R/
[2016-09-05] MEDS ORDERED: FUROSEMIDE 20 MG INJ IV SCH (17:30)
[2016-09-05] MEDS ORDERED: LORAZEPAM 0.5 MG TAB PO PRN (17:30)
[2016-09-05] MEDS: ALBUTEROL/IPRATROPIUM (NEB) 3 ML AMP HHN SCH ×2 (17:58→20:19)
--- NOTE | 2016-09-05 18:06 | PN ---
DATE: 09/05/2016 SUBJECTIVE: Ms. Aguila is now postoperative day 2 from a laparoscopic appendectomy. She is tyron ating clears. Passing flatus minimally. She is afebrile since surgery. OBJECTIVE: VITAL SIGNS: Her heart rate is 105, blood pressure 109/55. ABDOMEN: Soft, mildly distended with some left lower quadrant tenderness. LABORATORY DATA: Today reveal a white count of 21, hematocrit of 37 and platelets of 172. Sodium 1 38, potassium 3.6, chloride 104, CO2 of 24, BUN and creatinine 16 and 0.9, and glucose of 90. ASSESSMENT AND PLAN: Ms. Aguila is an 86-year-old female status post laparoscopic appendectomy, p ostop day #2. 1. Continue clears. 2. Mild ileus. We will prescribe stool softeners. 3. Her WBC has continued to increase, we will monitor and repeat tomorrow. Dictated By: TRISTAN MYLES/VU Conf#: [id number] DID#: [id number]
[2016-09-05] MEDS: FUROSEMIDE 40 MG INJ IV SCH (18:16)
[2016-09-05] MEDS: POLYETHYLENE GLYCOL 17 GM PACKET GTB SCH (18:16)
[2016-09-05] MEDS ORDERED: VITAMIN A & D 5 GM OINT PACKET TOP ONE (20:36)
[2016-09-05] MEDS: SALMETEROL/FLUTICASONE 250/50 INHA INH SCH (20:39)
[2016-09-05] MEDS: morphine 2 MG INJ IV PRN (20:42)
[2016-09-05] MEDS: DORZOLAMIDE/TIMOLOL 10 ML OPH LEFT EYE SCH (20:46)
[2016-09-05] MEDS: BUSPIRONE 5 MG TAB PO SCH (20:46)
[2016-09-05 21:29] VITALS: BP 154/74; RESP 20
--- NOTE | 2016-09-05 21:39 | RADRPT ---
Echocardiogram Report Patient Name: CHARLOTTE CASILLAS Gender: Female Date: 1930 Study Date: 04-Sep-2016 Buffing Wheel Inspector: Kwame Steele RDCS Location: 106 Ref. Physician: CARLITO HINES Quality: Technically Difficult Study Procedures: Transthoracic echocardiogram with complete 2D, M-Mode, and doppler examination. Indications: Hypotension. 2D/M Mode Doppler Measurement Value Normal Ranges Measurement Value Normal Ranges LVIDd 2D 3.7 3.5 - 5.6 cm AV Peak Parker 1.2 m/sec LVIDs 2D 2.5 2.1 - 4.1 cm AV Peak PG 6.0 mmHg LVPWd 2D 0.7 0.6 - 1.1 cm LVOT Peak Parker 1.2 m/sec IVSd 2D 0.8 0.6 - 1.1 cm LVOT Peak PG 5.9 mmHg AoR Diam 2D 2.7 2.0 - 3.7 cm EDV 2D 59.6 cm3 ESV 2D 14.9 cm3 LA Dimen 2D 2.7 2.3 - 4.0 cm Findings Left Ventricle: Normal left ventricular systolic function. Normal left ventricular cavity size. Normal left ventricular wall thickness. Ejection fraction is visually estimated at 65 %. Right Ventricle: Normal right ventricular size. Normal right ventricular systolic function. Left Atrium: The left atrium is normal in size. Right Atrium: The right atrium is normal in size. Mitral Valve: Mitral valve leaflets appear mildly thickened. Mild mitral annular calcification. Trace mitral regurgitation. Aortic Valve: Normal appearance of the aortic valve. No significant aortic stenosis or insufficiency. Tricuspid Valve: Normal appearance and function of the tricuspid valve with trace physiologic regurgitation. Pericardium: Normal pericardium with no significant pericardial effusion. Aorta: Normal aortic root. IVC: Normal size and normal respiratory collapse consistent with normal right atrial pressure. Conclusions Normal left ventricular systolic function. Normal left ventricular cavity size. Normal left ventricular wall thickness. Ejection fraction is visually estimated at 65 %. Normal right ventricular size. Normal right ventricular systolic function. The left atrium is normal in size. The right atrium is normal in size. No significant valvular stenosis or regurgitation seen. Normal pericardium with no significant pericardial effusion. Electronically Signed By: Taco Castillo 05-Sep-2016 21:38:58 -0800 Patient Name: CHARLOTTE CSAILLAS Study Date: 04-Sep-2016 [id number]
[2016-09-06] MEDS: ALBUTEROL/IPRATROPIUM (NEB) 3 ML AMP HHN SCH ×2 (01:21→05:08)
[2016-09-06] MEDS: morphine 2 MG INJ IV PRN (01:31)
[2016-09-06] MEDS: PIPER-TAZO 3.375 GM IV (PMX) 100 ML IVPB SCH ×3 (06:17→23:52)
[2016-09-06] MEDS: LEVOTHYROXINE 75 MCG TAB PO SCH (06:17)
[2016-09-06] MEDS: ENOXAPARIN 40 MG/0.4 ML SYG SC SCH (06:21)
[2016-09-06 07:23] VITALS: BP 172/79; RESP 18
[2016-09-06] MEDS: SALMETEROL/FLUTICASONE 250/50 INHA INH SCH ×2 (09:26→21:23)
[2016-09-06] MEDS: TIOTROPIUM 18 MCG CAPSULE INHA DEV INH SCH (09:26)
[2016-09-06] MEDS: POLYETHYLENE GLYCOL 17 GM PACKET GTB SCH (09:26)
[2016-09-06] MEDS: BUSPIRONE 5 MG TAB PO SCH ×2 (09:26→21:00)
[2016-09-06] MEDS: DOCUSATE SODIUM 100 MG CAP PO SCH ×2 (09:26→21:22)
[2016-09-06] MEDS: FUROSEMIDE 40 MG INJ IV SCH (09:28)
[2016-09-06] MEDS: FAMOTIDINE 20 MG INJ IV SCH ×2 (09:28→21:22)
[2016-09-06] MEDS: LATANOPROST 0.005% 2.5 ML OPH LEFT EYE SCH (09:28)
[2016-09-06] MEDS: DORZOLAMIDE/TIMOLOL 10 ML OPH LEFT EYE SCH ×2 (09:28→21:24)
[2016-09-06] MEDS ORDERED: hydrALAzine 20 MG INJ IV PRN (09:30)
[2016-09-06 09:45] LABS: POTASSIUM 3.4 mmol/L (3.5-5.1)
[2016-09-06 09:47] LABS: CREATININE 0.84 mg/dl (0.44-1.00); MAGNESIUM 1.7 mg/dl (1.7-2.5); PHOSPHORUS 1.9 mg/dl (2.5-4.9)
[2016-09-06 09:48] LABS: CALCIUM 8.1 mg/dl (8.4-10.2)
[2016-09-06 11:02] LABS: HEMATOCRIT 34.2 % (37.0-47.0); HEMOGLOBIN 11.3 g/dl (12.0-16.0); MEAN CORPUSCULAR HEMOGLOBIN 28.6 pg (29.0-33.0); MEAN CORPUSCULAR VOLUME 86.7 fl (82.0-101.0); MEAN PLATELET VOLUME 8.6 fl (7.4-10.4); PLATELET COUNT 166 10^3/UL (140-440); RED BLOOD COUNT 3.94 10^6/ul (4.20-5.40); RED CELL DISTRIBUTION WIDTH 14.5 % (11.5-14.5); UNCORRECTED WBC 18.5 10^3/ul (4.8-10.8); WHITE BLOOD COUNT 18.5 10^3/ul (4.8-10.8)
--- NOTE | 2016-09-06 11:10 | PN ---
Date/Time of Note Date/Time of Note DATE: 09/06/16 TIME: 11:06 Assessment/Plan VTE Prophylaxis VTE Prophylaxis Intervention: LMWH Lines/Catheters [facility] Saline Lock Urinary Cath still in place: Yes Reason Cath still needed: urinary retention Assessment/Plan Chief Complaint/Hosp Course ASSESSMENT AND PLAN: 86-year-old female with history of hypertension, high cholesterol who presented with acute appendicitis status post laparoscopic appendectomy, with some postop hypotension - resolved. 1. Again, abdominal pain secondary to appendicitis. Again, she underwent laparoscopic appendectomy yesterday, postop day # 3. - continue PT, Follow up general surgery recommendations. - soft diet for now, antiemetic and pain medicines for control of those symptoms. 2. SOB - sec to + fluid in lungs based on CXR. ECHO showed SR = 65 % nL LV fct sys. - on Lasix IV now - get CV consult - will get pulm consult as well - duoneb's prn - continue abx. 3. Hypotension. Again, appears to be postop- and now resolved. - Continue to monitor for now, restart coreg today. 4. Leukocytosis, most likely secondary to #1. There are no signs of any fevers. - Continue to monitor for now. 5. Mild renal insufficiency, resolving. Continue to monitor for now. 6. History of high cholesterol: - f/u lipid panel. - Continue to monitor for now. 7. Hypertension - as above, continue lasix and start Coreg today. 8. History of chronic obstructive pulmonary disease, no present issues. Continue DuoNeb p.r.n. 9. History of depression. Continue to monitor for now. 10. Hypothyroidism- f/u thyroid panel. 11. Gastrointestinal prophylaxis. H2 gavin. 12. Deep venous thrombosis prophylaxis, Lovenox. 13. low phos - replete today Problems: Subjective 24 Hr Interval Summary Free Text/Dictation Pt has less SOB, but complained of some nausea. Exam/Review of Systems Vital Signs Vitals Vital Signs Date Time Temp Pulse Resp B/P Pulse Ox O2 Delivery O2 Flow Rate FiO2 09/06/16 07:23 98.3 104 18 172/79 94 09/06/16 05:08 Nasal Cannula 4.0 09/04/16 20:12 40 Intake and Output 09/05/16 09/05/16 09/06/16 15:00 23:00 07:00 Intake Total 1160 ml 360 ml Output Total 3100 ml Balance 1160 ml -2740 ml Exam GENERAL: The patient is lying in bed, answering questions appropriately, NAD HEENT: Pupils equal, round, react to light. Extraocular muscles intact. NECK: Supple, no thyromegaly. LUNGS: Clear to auscultation bilaterally. CARDIOVASCULAR: S1, S2 heard. No rubs or gallops. ABDOMEN: less tenderness to palpation, slightly distended in the mid abdomen area, but otherwise no rebound or guarding. Normal bowel sounds. MUSCULOSKELETAL: No lower extremity edema bilaterally. NEUROLOGIC: No focal deficits. Results Result Diagram: 09/05/16 1005 09/06/16 0925 Results 24 hrs Laboratory Tests Test 09/06/16 09:25 Anion Gap 15 Blood Urea Nitrogen 15 Calcium Level 8.1 L Carbon Dioxide Level 28 Chloride Level 100 Creatinine 0.84 Glucose Level 113 Magnesium Level 1.7 Phosphorus Level 1.9 L Potassium Level 3.4 L Sodium Level 140 Medications Medications Current Medications Piperacillin Sod/ Tazobactam Sod (Zosyn 3.375gm/ 100 ml (Pmx)) 100 ml @ 200 mls /hr Q8 IVPB Last administered on 09/06/16 06:17; Admin Dose 200 MLS/HR; Start 09/03/16 at 22:00 Famotidine (Pepcid Iv) 20 mg BID IV Last administered on 09/06/16 09:28; Admin Dose 20 MG; Start 09/03/16 at 21:00 Docusate Sodium (Colace) 100 mg BID PO Last administered on 09/06/16 09:26; Admin Dose 100 MG; Start 09/03/16 at 21:00 Ondansetron HCl (Zofran Inj) 4 mg Q6H PRN IV NAUSEA AND/OR VOMITING; Start at 15:30 Acetaminophen (Tylenol Tab) 650 mg Q6H PRN PO PAIN LEVEL 1-3 OR FEVER; Start at 15:30 Ibuprofen (Motrin) 600 mg Q6H PRN PO PAIN LEVEL 1-3; Start 09/03/16 at 15:30 Morphine Sulfate (morphine) 2 mg Q2H PRN IV PAIN LEVEL 8-10 Last administered on 09/06/16 01:31; Admin Dose 2 MG; Start 09/03/16 at 15:30 Acetaminophen/ Hydrocodone Bitart ([place] (5/325)) 1 tab Q6H PRN PO PAIN LEVEL 4 -7 Last administered on 09/05/16 11:53; Admin Dose 1 TAB; Start 09/03/16 at 15: 30 Enoxaparin Sodium (Lovenox) 40 mg DAILY@07 SC Last administered on 09/06/16 06: 21; Admin Dose 40 MG; Start 09/04/16 at 07:00 Polyethylene Glycol (Miralax) 8.5 gm DAILY GTB Last administered on 09/06/16 09 :26; Admin Dose 8.5 GM; Start 09/05/16 at 17:30 Buspirone HCl (Buspar) 5 mg BID PO Last administered on 09/06/16 09:26; Admin Dose 5 MG; Start 09/05/16 at 21:00 Dorzolamide/ Timolol (Cosopt) 1 drop BID LEFT EYE Last administered on 09:28; Admin Dose 1 DROP; Start 09/05/16 at 21:00 Latanoprost (Xalatan) 1 drop DAILY LEFT EYE Last administered on 09/06/16 09:28 ; Admin Dose 1 DROP; Start 09/06/16 at 09:00 Levothyroxine Sodium (Synthroid) 75 mcg DAILY@06 PO Last administered on 06:17; Admin Dose 75 MCG; Start 09/06/16 at 06:00 Lorazepam (Ativan) 0.5 mg HS PRN PO ANXIETY; Start 09/05/16 at 17:30 Salmeterol Xinafoate/ Fluticasone (Advair 250/50 Diskus) 1 inh BID INH Last administered on 09/06/16 09:26; Admin Dose 1 INH; Start 09/05/16 at 21:00 Tiotropium [place] (Spiriva) 1 inh DAILY INH Last administered on 09/06/16 09: 26; Admin Dose 1 INH; Start 09/06/16 at 09:00 Furosemide (Lasix) 40 mg DAILY IV Last administered on 09/06/16 09:28; Admin Dose 40 MG; Start 09/05/16 at 17:30 Carvedilol (Coreg) 6.25 mg BID PO ; Start 09/06/16 at 09:30 Hydralazine HCl 10 mg 10 mg Q6H PRN IV SBP >170; Start 09/06/16 at 09:30 Potassium Phosphate/Sodium Chloride (K Phos (Meq)/NS) 259.0909 ml @ 43.182 m... ONCE ONCE IVPB ; Start 09/06/16 at 12:30; Stop 09/06/16 at 18:29 Clonidine (Catapres) 0.1 mg BID PO ; Start 09/06/16 at 21:00 LUIS DANIEL MICHEL Sep 06, 2016 11:10
[2016-09-06 11:12] LABS: CONDITION 1; SUSPECT 1
[2016-09-06 11:13] LABS: LH ANALYZER COMMENTS 1
[2016-09-06] MEDS ORDERED: ALBUTEROL/IPRATROPIUM (NEB) 3 ML AMP HHN PRN (11:30)
[2016-09-06 11:59] LABS: EOSINOPHILS # 0.2 10^3/ul (0.0-0.5); HYPOCHROMASIA 1+; LYMPHOCYTES # 1.7 10^3/ul (0.8-2.9); MONOCYTE # 1.9 10^3/ul (0.3-0.9); NEUTROPHIL # 12.8 10^3/ul (1.6-7.5)
[2016-09-06] MEDS ORDERED: POTASSIUM PHOSPHATE 40 MEQ in SOD CHLORIDE 0.9% 250 ML IVPB ONE (12:30)
[2016-09-06] MEDS ORDERED: POTASSIUM CHLORIDE (SR) 20 MEQ TAB PO STA (15:24)
[2016-09-06] MEDS ORDERED: MAGNESIUM SULFATE 2 GM/50 ML 50 ML IVPB ONE (15:30)
--- NOTE | 2016-09-06 15:31 | CONS ---
Date/Time of Note Date/Time of Note DATE: 09/06/16 TIME: 15:26 Assessment/Plan Assessment/Plan Additional Assessment/Plan Acute decompensated diastolic congestive heart failure. Acute appendicitis status post surgery Postoperative hypotension, resolved Preserved ejection fraction Hypertension -Patient has responded well to IV diuretic therapy with significant improvement in symptoms and lung examination. Would continue IV diuretics for additional day and reassess for switching to by mouth. Would supplement potassium to maintain above 4.0 and magnesium above 2.0. Encourage physical therapy. Blood pressure trend with no hypotension. Consultation Date/Type/Reason Admit Date/Time Sep 03, 2016 at 19:55 Type of Consultation: cv Reason for Consultation Shortness of breath Hx of Present Illness This is an 86-year-old female who presented with abdominal pain and found to have acute appendicitis. Patient underwent surgery. Postoperatively, patient with hypotension requiring IV fluids. Yesterday, patient with shortness of breath. Chest x-ray demonstrated pulmonary vascular congestion. She was given IV Lasix. She currently feels much better, denies any shortness of breath, chest pain or palpitations. She complains of abdominal pain and weakness. 12 point review of systems was performed with all pertinent positives and negatives mentioned above and all else is negative Past Medical History COPD Medical History: congestive heart failure, hypertension Past Surgical History Past Surgical Hx: appendectomy Family History Significant Family History: no pertinent family hx Social History Smoking Status: Former smoker Exam/Review of Systems Vital Signs Vitals Vital Signs Date Time Temp Pulse Resp B/P Pulse Ox O2 Delivery O2 Flow Rate FiO2 09/06/16 07:23 98.3 104 18 172/79 94 09/06/16 05:08 Nasal Cannula 4.0 09/04/16 20:12 40 Intake and Output 09/05/16 09/05/16 09/06/16 15:00 23:00 07:00 Intake Total 1160 ml 360 ml Output Total 3100 ml Balance 1160 ml -2740 ml Exam No apparent distress, no dyspnea with speaking Constitutional: alert, oriented Head: normocephalic Neck: supple Respiratory: other (course breath sounds bilaterally, no wheezing) Cardiovascular: other (S1-S2 heard, no murmurs appreciated), regular rate and rhythm Gastrointestinal: bowel sounds, non-tender, soft Extremities: other (no edema) Results Result Diagram: 2/1/17 0925 2/1/17 0925 Results 24 hrs Laboratory Tests Test 09/06/16 09:25 Anion Gap 15 Band Neutrophils % 11.0 H Basophils # Basophils % Blood Morphology Comment Blood Urea Nitrogen 15 Calcium Level 8.1 L Carbon Dioxide Level 28 Chloride Level 100 Creatinine 0.84 Eosinophils # 0.2 Eosinophils % 1.0 Glucose Level 113 Hematocrit 34.2 L Hemoglobin 11.3 L Hypochromasia 1+ Lymphocytes # 1.7 Lymphocytes % 9.0 L Magnesium Level 1.7 Mean Corpuscular Hemoglobin 28.6 L Mean Corpuscular Hemoglobin Concent 33.0 Mean Corpuscular Volume 86.7 Mean Platelet Volume 8.6 Monocytes # 1.9 H Monocytes % 10.0 Neutrophils # 12.8 H Neutrophils % 69.0 Nucleated Red Blood Cells # Nucleated Red Blood Cells % Phosphorus Level 1.9 L Platelet Count 166 Potassium Level 3.4 L Red Blood Count 3.94 L Red Cell Distribution Width 14.5 Sodium Level 140 White Blood Count 18.5 H Medications Medications Current Medications Piperacillin Sod/ Tazobactam Sod (Zosyn 3.375gm/ 100 ml (Pmx)) 100 ml @ 200 mls /hr Q8 IVPB Last administered on 09/06/16 14:36; Admin Dose 200 MLS/HR; Start 09/03/16 at 22:00 Famotidine (Pepcid Iv) 20 mg BID IV Last administered on 09/06/16 09:28; Admin Dose 20 MG; Start 09/03/16 at 21:00 Docusate Sodium (Colace) 100 mg BID PO Last administered on 09/06/16 09:26; Admin Dose 100 MG; Start 09/03/16 at 21:00 Ondansetron HCl (Zofran Inj) 4 mg Q6H PRN IV NAUSEA AND/OR VOMITING; Start at 15:30 Acetaminophen (Tylenol Tab) 650 mg Q6H PRN PO PAIN LEVEL 1-3 OR FEVER; Start at 15:30 Ibuprofen (Motrin) 600 mg Q6H PRN PO PAIN LEVEL 1-3; Start 09/03/16 at 15:30 Enoxaparin Sodium (Lovenox) 40 mg DAILY@07 SC Last administered on 09/06/16 06: 21; Admin Dose 40 MG; Start 09/04/16 at 07:00 Polyethylene Glycol (Miralax) 8.5 gm DAILY GTB Last administered on 09/06/16 09 :26; Admin Dose 8.5 GM; Start 09/05/16 at 17:30 Buspirone HCl (Buspar) 5 mg BID PO Last administered on 09/06/16 09:26; Admin Dose 5 MG; Start 09/05/16 at 21:00 Dorzolamide/ Timolol (Cosopt) 1 drop BID LEFT EYE Last administered on 09:28; Admin Dose 1 DROP; Start 09/05/16 at 21:00 Latanoprost (Xalatan) 1 drop DAILY LEFT EYE Last administered on 09/06/16 09:28 ; Admin Dose 1 DROP; Start 09/06/16 at 09:00 Levothyroxine Sodium (Synthroid) 75 mcg DAILY@06 PO Last administered on 06:17; Admin Dose 75 MCG; Start 09/06/16 at 06:00 Lorazepam (Ativan) 0.5 mg HS PRN PO ANXIETY; Start 09/05/16 at 17:30 Salmeterol Xinafoate/ Fluticasone (Advair 250/50 Diskus) 1 inh BID INH Last administered on 09/06/16 09:26; Admin Dose 1 INH; Start 09/05/16 at 21:00 Tiotropium [place] (Spiriva) 1 inh DAILY INH Last administered on 09/06/16 09: 26; Admin Dose 1 INH; Start 09/06/16 at 09:00 Furosemide (Lasix) 40 mg DAILY IV Last administered on 09/06/16 09:28; Admin Dose 40 MG; Start 09/05/16 at 17:30 Carvedilol (Coreg) 6.25 mg BID PO Last administered on 09/06/16 11:08; Admin Dose 6.25 MG; Start 09/06/16 at 09:30 Hydralazine HCl 10 mg 10 mg Q6H PRN IV SBP >170; Start 09/06/16 at 09:30 Potassium Phosphate/Sodium Chloride (K Phos (Meq)/NS) 259.0909 ml @ 43.182 m... ONCE ONCE IVPB Last administered on 09/06/16 12:44; Admin Dose 43.182 MLS /HR; Start 09/06/16 at 12:30; Stop 09/06/16 at 18:29 Clonidine (Catapres) 0.1 mg BID PO ; Start 09/06/16 at 21:00 Procedures Procedures ECG done generator 29 demonstrates sinus tachycardia at 111 beats per minute, septal Q waves, QRS 80 ms, no significant ischemic STT wave abnormalities Taco Castillo DO Sep 06, 2016 15:31
--- NOTE | 2016-09-06 16:39 | CONS ---
DATE OF ADMISSION: 09/03/2016 DATE OF CONSULTATION: 09/06/2016 REASON FOR CONSULTATION: Shortness of breath. Thank you, Dr. Mora, for this consultation. HISTORY OF PRESENT ILLNESS: This is an 86-year-old lady with extensive tobacco previously 1 pack pe r day for 60+ years, quit smoking about 16 years ago, admitted on this admission on 09/04/2016 with a diagnosis of abdominal pain, found to have acute appendicitis. Patient underwent aggressive volum e resuscitation for initial hypotension and subsequent appendectomy by Dr. Jose Luis Quinn performed o n 09/04/2016. Postoperatively, she has made slow progress yesterday was experiencing significant sh ortness of breath with mild orthopnea and PND. Patient states she does not use home oxygen. She pop s limited mobility at home and uses inhalers sporadically. PAST MEDICAL HISTORY: 1. COPD. 2. Hypertension. 3. Hyperlipidemia. 4. Mild renal insufficiency. MEDICATIONS: Per chart. ALLERGIES: NONE. SOCIAL HISTORY: Nonsmoker, no alcohol, no history of drug use. FAMILY HISTORY: Noncontributory. SYSTEMS REVIEW: A 12-point review of systems was negative other than that mentioned above. PHYSICAL EXAMINATION: GENERAL: Elderly-appearing lady, comfortable at rest, no acute distress. VITAL SIGNS: Currently afebrile, pulse is 100, blood pressure 170/79, O2 saturation 93% on 4 L nasa l cannula. NECK: Supple. No JVD or lymphadenopathy. CARDIAC: S1, S2, no added sounds or murmurs. CHEST: Diminished air entry bilaterally. ABDOMEN: Soft, nontender. No guarding or rebound. EXTREMITIES: No cyanosis, clubbing, edema. NEUROLOGIC: Generalized weakness. LABORATORY DATA: White count 18.5, hemoglobin 11.3. Chemistry within normal limits. Urinalysis un remarkable. Chest x-ray was reviewed, shows bibasilar atelectasis, possible pneumonia right lower lobe. IMPRESSION AND PLAN: Post-appendectomy hypoxemia in a patient with extensive tobacco history with l ikely underlying chronic obstructive pulmonary disease. PATIENT WILL NEED: 1. Continued pulmonary toilet. 2. Incentive spirometry. 3. Agree with gentle diuresis. 4. Continue current bronchodilators. 5. Antibiotics per primary team. 6. DVT and GI prophylaxis. 7. Physical therapy evaluation of possible transfer to acute rehabilitation. 8. Outpatient pulmonary function testing. Dictated By: DUDLEY NEVAREZ/VU Conf#: [id number] DID#: [id number]
[2016-09-06 20:38] VITALS: BP 132/72
--- NOTE | 2016-09-06 21:16 | PN ---
DATE: 09/06/2016 SUBJECTIVE: Ms. Aguila is now postoperative day 3 from a laparoscopic appendectomy. Patient stat es she is feeling better. She is tolerating clears and having flatus. OBJECTIVE: VITAL SIGNS: She is afebrile. Vital signs stable. ABDOMEN: Has decreased distention and decreased tenderness. LABORATORY DATA: Today reveal white count of 18.5, hematocrit 34, platelets of 166. ASSESSMENT AND PLAN: Ms. Aguila is an 86-year-old female postop day 3 from laparoscopic appendect nikunj. 1. White count is resolving and afebrile x3 days after surgery. 2. Advance to soft diet. If tolerates, would wean intravenous fluids. 3. Would like to see her white count trending down before discharge but anticipate discharge on Sun or Sunday. Dictated By: TRISTAN MYLES/VU Conf#: [id number] DID#: [id number]
[2016-09-07 06:19] LABS: EOSINOPHILS # 0.2 10^3/ul (0.0-0.5); EOSINOPHILS % 1.3 % (0.0-7.0); HEMATOCRIT 34.8 % (37.0-47.0); HEMOGLOBIN 11.4 g/dl (12.0-16.0); LYMPHOCYTES % 8.3 % (15.0-51.0); MEAN CORPUSCULAR HEMOGLOBIN 28.2 pg (29.0-33.0); MEAN CORPUSCULAR HGB CONC 32.7 g/dl (32.0-37.0); MEAN CORPUSCULAR VOLUME 86.2 fl (82.0-101.0); MEAN PLATELET VOLUME 8.1 fl (7.4-10.4); MONOCYTE # 1.1 10^3/ul (0.3-0.9); MONOCYTES % 9.1 % (0.0-11.0); NEUTROPHIL # 9.5 10^3/ul (1.6-7.5); NEUTROPHILS % 81.3 % (39.0-77.0); PLATELET COUNT 202 10^3/UL (140-440); RED BLOOD COUNT 4.03 10^6/ul (4.20-5.40); RED CELL DISTRIBUTION WIDTH 14.2 % (11.5-14.5); UNCORRECTED WBC 11.6 10^3/ul (4.8-10.8); WHITE BLOOD COUNT 11.6 10^3/ul (4.8-10.8)
[2016-09-07 06:34] LABS: PHOSPHORUS 3.3 mg/dl (2.5-4.9)
[2016-09-07 06:35] LABS: MAGNESIUM 2.4 mg/dl (1.7-2.5)
[2016-09-07 06:38] LABS: POTASSIUM 3.6 mmol/L (3.5-5.1)
[2016-09-07] MEDS: PIPER-TAZO 3.375 GM IV (PMX) 100 ML IVPB SCH ×3 (06:40→21:38)
[2016-09-07] MEDS: LEVOTHYROXINE 75 MCG TAB PO SCH (06:40)
[2016-09-07 06:41] LABS: CREATININE 0.95 mg/dl (0.44-1.00)
[2016-09-07 06:42] LABS: CALCIUM 8.3 mg/dl (8.4-10.2)
[2016-09-07] MEDS: ENOXAPARIN 40 MG/0.4 ML SYG SC SCH (06:45)
[2016-09-07 07:06] LABS: CONDITION 1
[2016-09-07 07:50] VITALS: BP 170/91; RESP 16
[2016-09-07] MEDS: DOCUSATE SODIUM 100 MG CAP PO SCH ×2 (08:44→21:37)
[2016-09-07] MEDS: FAMOTIDINE 20 MG INJ IV SCH ×2 (08:44→21:35)
[2016-09-07] MEDS: FUROSEMIDE 40 MG INJ IV SCH (08:45)
[2016-09-07] MEDS: SALMETEROL/FLUTICASONE 250/50 INHA INH SCH ×2 (08:45→21:35)
[2016-09-07] MEDS: TIOTROPIUM 18 MCG CAPSULE INHA DEV INH SCH (08:46)
[2016-09-07] MEDS: LATANOPROST 0.005% 2.5 ML OPH LEFT EYE SCH (08:47)
[2016-09-07] MEDS: POLYETHYLENE GLYCOL 17 GM PACKET GTB SCH (08:47)
[2016-09-07] MEDS: DORZOLAMIDE/TIMOLOL 10 ML OPH LEFT EYE SCH ×2 (08:47→21:36)
[2016-09-07] MEDS: BUSPIRONE 5 MG TAB PO SCH ×2 (08:48→21:00)
--- NOTE | 2016-09-07 09:08 | RADRPT ---
PROCEDURE: XR Chest. CLINICAL INDICATION: Shortness of breath TECHNIQUE: A single AP view of the chest was obtained. COMPARISON: No prior examination is available for comparison. FINDINGS: The lungs are hyperinflated with coarsening of the interstitial markings and increased lucency of th e upper lung zones. There are small bilateral pleural effusions. No focal airspace opacification o r pneumothorax is seen. The cardiomediastinal silhouette is within normal limits for size. Calcific ations are seen within the aortic arch. The osseous structures are unremarkable. IMPRESSION: 1. Findings suggesting emphysematous changes of the lungs. 2. Small bilateral pleural effusions, not significantly changed. 3. Aortic atherosclerosis. RPTAT: HH .Annabel Polo MD, MD Date Time Electronically viewed and signed by .Annabel Polo MD, on 09/07/2016 09:07 .Regla/
--- NOTE | 2016-09-07 10:20 | CONS ---
DATE OF ADMISSION: 09/03/2016 DATE OF CONSULTATION: 09/07/2016 PAIN MANAGEMENT CONSULTATION HISTORY OF PRESENT ILLNESS: This is an 86-year-old female who is a good historian, but her daughter is at the bedside also to clarify any inconsistencies, who presented to [facility] on 09/03/2016 with increasing abdominal discomfort, nausea and vomiting. A diagnosis of appendici tis was made in the emergency room with CT scan. The patient was taken to the operating room on by Dr. Favio Quinn. An unremarkable appendectomy was done. The patient was transferred to the intensive care unit, but has continued to complain of abdominal discomfort. She is currently receiving just fluids at this time. She is somewhat reticent to ambulate. Insofar as her pain, nidhi moseley describes it as generalized abdominal discomfort, without radiations into her flanks or bilateral lower extremities, not associated with nausea, vomiting, grade 4/10, only increases in severity with minimal movement. She is currently being treated with a combination of morphine and [place]; however, of note also in reviewing the patient's medical records, her white blood cell count is trending up as of 09/06/2016 to 18.5 thousand, but on the date of this post-dated note, her white blood cell cou nt is down to 11.6. MEDICATIONS: Please refer to reconciliation sheets. ALLERGIES: NO KNOWN DRUG ALLERGIES. MAJOR MEDICAL PROBLEMS IN THE PAST: Those that I could obtain from the patient's medical records inc lude a history of hypertension and hyperlipidemia only, but apparently the patient also has a histor y of COPD, osteoporosis, depression, hypothyroidism and glaucoma. SOCIAL HISTORY: Nonsmoker, nondrinker at this time. She did smoke in the past. FAMILY HISTORY: Unknown. REVIEW OF SYSTEMS: Cannot be obtained. PHYSICAL EXAMINATION: GENERAL: Shows a well-nourished, well-developed, very pleasant female, who is in no major acute dis tress. VITAL SIGNS: Blood pressure 170/90, pulse of 78 and regular, respirations 16, temperature of 98.1 d egrees, 93% saturation on 4 liters. HEENT: She is normocephalic and atraumatic. Anicteric, acyanotic. CHEST: On examination chest shows bilateral clear breath sounds throughout both lung vizcaino. COR: S1, S2, without S3, S4, murmur, gallop or rub. Normal rate, normal rhythm. ABDOMEN: On examination abdomen is grossly benign. Active bowel sounds. Minimally distended. ASSESSMENT AND PLAN: At this time the patient has normal renal function and normal liver functions. She is receiving IV opioids and p.o. opioids also. I would suggest at this time we discontinue chandu th opioids and just use nonsteroidal anti-inflammatory medications as necessary only. A high risk o f developing delirium in-house. Also it would be advantageous in following her symptoms in-house an d increasing her ambulatory status. Dictated By: LARISSA RICHARDSON MD LP/NTS Conf#: [id number] DID#: [id number]
--- NOTE | 2016-09-07 11:07 | PN ---
Date/Time of Note Date/Time of Note DATE: 09/07/16 TIME: 11:03 Assessment/Plan VTE Prophylaxis VTE Prophylaxis Intervention: LMWH Lines/Catheters IV Catheter Type (from Nrs): Saline Lock Urinary Cath still in place: Yes Reason Cath still needed: urinary retention Assessment/Plan Chief Complaint/Hosp Course ASSESSMENT AND PLAN: 86-year-old female with history of hypertension, high cholesterol who presented with acute appendicitis status post laparoscopic appendectomy, with some postop hypotension - resolved. 1. Again, abdominal pain secondary to appendicitis. Again, she underwent laparoscopic appendectomy yesterday, postop day # 4. - continue PT, Follow up general surgery recommendations. - soft diet for now, antiemetic and pain medicines for control of those symptoms. 2. SOB - sec to + fluid in lungs based on CXR. ECHO showed SR = 65 % nL LV fct sys. Improving now after IV lasix. - switch to PO Lasix now, f/u pulm and CV consult rec's - duoneb's prn - continue abx. 3. Hypotension. Again, appears to be postop- and now resolved. - Continue to monitor for now, continue coreg today. 4. Leukocytosis, most likely secondary to #1. There are no signs of any fevers. - Continue to monitor for now. 5. Mild renal insufficiency, resolving. Continue to monitor for now. 6. History of high cholesterol: - f/u lipid panel. - Continue to monitor for now. 7. Hypertension - as above, continue lasix and Coreg 8. History of chronic obstructive pulmonary disease, no present issues. Continue DuoNeb p.r.n. 9. History of depression. Continue to monitor for now. 10. Hypothyroidism- f/u thyroid panel. 11. Gastrointestinal prophylaxis. H2 gavin. 12. Deep venous thrombosis prophylaxis, Lovenox. 13. Dispo: possible SNF vs rehab - f/u with pt and CM on this. Problems: Subjective 24 Hr Interval Summary Free Text/Dictation Pt passing gas, less abd pain but still present, worked with PT today. Exam/Review of Systems Vital Signs Vitals Vital Signs Date Time Temp Pulse Resp B/P Pulse Ox O2 Delivery O2 Flow Rate FiO2 09/07/16 09:58 Nasal Cannula 3.0 09/07/16 07:50 98.1 78 16 170/91 93 09/04/16 20:12 40 Intake and Output 09/06/16 09/06/16 09/07/16 15:00 23:00 07:00 Intake Total 1439.0909 ml 270 ml Output Total 2750 ml 500 ml Balance -1310.9091 ml -230 ml Exam GENERAL: The patient is lying in bed, answering questions appropriately, NAD HEENT: Pupils equal, round, react to light. Extraocular muscles intact. NECK: Supple, no thyromegaly. LUNGS: Clear to auscultation bilaterally. CARDIOVASCULAR: S1, S2 heard. No rubs or gallops. ABDOMEN: less tenderness to palpation, less distended in the mid abdomen area, but otherwise no rebound or guarding. Normal bowel sounds. MUSCULOSKELETAL: No lower extremity edema bilaterally. NEUROLOGIC: No focal deficits. Results Result Diagram: 09/07/16 0540 09/07/16 0540 Results 24 hrs Laboratory Tests Test 09/07/16 05:40 Anion Gap 14 Basophils # 0.0 Basophils % 0.0 Blood Morphology Comment Blood Urea Nitrogen 17 Calcium Level 8.3 L Carbon Dioxide Level 32 H Chloride Level 99 Creatinine 0.95 Eosinophils # 0.2 Eosinophils % 1.3 Glucose Level 94 Hematocrit 34.8 L Hemoglobin 11.4 L Lymphocytes # 1.0 Lymphocytes % 8.3 L Magnesium Level 2.4 Mean Corpuscular Hemoglobin 28.2 L Mean Corpuscular Hemoglobin Concent 32.7 Mean Corpuscular Volume 86.2 Mean Platelet Volume 8.1 Monocytes # 1.1 H Monocytes % 9.1 Neutrophils # 9.5 H Neutrophils % 81.3 H Nucleated Red Blood Cells # 0.0 Nucleated Red Blood Cells % 0.0 Phosphorus Level 3.3 Platelet Count 202 # Potassium Level 3.6 Red Blood Count 4.03 L Red Cell Distribution Width 14.2 Sodium Level 141 White Blood Count 11.6 #H Medications Medications Current Medications Piperacillin Sod/ Tazobactam Sod (Zosyn 3.375gm/ 100 ml (Pmx)) 100 ml @ 200 mls /hr Q8 IVPB Last administered on 09/07/16 06:40; Admin Dose 200 MLS/HR; Start 09/03/16 at 22:00 Famotidine (Pepcid Iv) 20 mg BID IV Last administered on 09/07/16 08:44; Admin Dose 20 MG; Start 09/03/16 at 21:00 Docusate Sodium (Colace) 100 mg BID PO Last administered on 09/07/16 08:44; Admin Dose 100 MG; Start 09/03/16 at 21:00 Ondansetron HCl (Zofran Inj) 4 mg Q6H PRN IV NAUSEA AND/OR VOMITING; Start at 15:30 Acetaminophen (Tylenol Tab) 650 mg Q6H PRN PO PAIN LEVEL 1-3 OR FEVER; Start at 15:30 Ibuprofen (Motrin) 600 mg Q6H PRN PO PAIN LEVEL 1-3 Last administered on 16:20; Admin Dose 600 MG; Start 09/03/16 at 15:30 Enoxaparin Sodium (Lovenox) 40 mg DAILY@07 SC Last administered on 09/07/16 06: 45; Admin Dose 40 MG; Start 09/04/16 at 07:00 Polyethylene Glycol (Miralax) 8.5 gm DAILY GTB Last administered on 09/07/16 08 :47; Admin Dose 8.5 GM; Start 09/05/16 at 17:30 Buspirone HCl (Buspar) 5 mg BID PO Last administered on 09/06/16 09:26; Admin Dose 5 MG; Start 09/05/16 at 21:00 Dorzolamide/ Timolol (Cosopt) 1 drop BID LEFT EYE Last administered on 08:47; Admin Dose 1 DROP; Start 09/05/16 at 21:00 Latanoprost (Xalatan) 1 drop DAILY LEFT EYE Last administered on 09/06/16 09:28 ; Admin Dose 1 DROP; Start 09/06/16 at 09:00 Levothyroxine Sodium (Synthroid) 75 mcg DAILY@06 PO Last administered on 06:40; Admin Dose 75 MCG; Start 09/06/16 at 06:00 Lorazepam (Ativan) 0.5 mg HS PRN PO ANXIETY; Start 09/05/16 at 17:30 Salmeterol Xinafoate/ Fluticasone (Advair 250/50 Diskus) 1 inh BID INH Last administered on 09/07/16 08:45; Admin Dose 1 INH; Start 09/05/16 at 21:00 Tiotropium [place] (Spiriva) 1 inh DAILY INH Last administered on 09/07/16 08: 46; Admin Dose 1 INH; Start 09/06/16 at 09:00 Carvedilol (Coreg) 6.25 mg BID PO Last administered on 09/07/16 08:44; Admin Dose 6.25 MG; Start 09/06/16 at 09:30 Hydralazine HCl (Apresoline) 10 mg Q6H PRN IV SBP >170; Start 09/06/16 at 09:30 Clonidine (Catapres) 0.1 mg BID PO Last administered on 09/07/16 08:44; Admin Dose 0.1 MG; Start 09/06/16 at 21:00 Furosemide (Lasix) 40 mg DAILY PO ; Start 09/08/16 at 09:00; Status LUIS DANIEL FORTUNE Sep 07, 2016 11:07
[2016-09-07] MEDS: SENNA TAB PO SCH ×2 (11:26→21:38)
--- NOTE | 2016-09-07 11:31 | CONS ---
Date/Time of Note Date/Time of Note DATE: 09/07/16 TIME: 11:29 Consult Date/Type/Reason Admit Date/Time Sep 03, 2016 at 19:55 Initial Consult Date Type of Consultation: pulmonary Subjective Still experiencing some shortness breath on exertion Today she is declining acute rehabilitation unit Objective Vital Signs Date Time Temp Pulse Resp B/P Pulse Ox O2 Delivery O2 Flow Rate FiO2 09/07/16 09:58 Nasal Cannula 3.0 09/07/16 07:50 98.1 78 16 170/91 93 09/04/16 20:12 40 Intake and Output 09/06/16 09/06/16 09/07/16 14:59 22:59 06:59 Intake Total 1439.0909 ml 270 ml Output Total 2750 ml 500 ml Balance -1310.9091 ml -230 ml PHYSICAL EXAMINATION: GENERAL: Elderly-appearing lady, comfortable at rest, no acute distress. VITAL SIGNS: as above NECK: Supple. No JVD or lymphadenopathy. CARDIAC: S1, S2, no added sounds or murmurs. CHEST: Diminished air entry bilaterally. ABDOMEN: Soft, nontender. No guarding or rebound. EXTREMITIES: No cyanosis, clubbing, edema. NEUROLOGIC: Generalized weakness. Results/Medications Result Diagram: 09/07/16 0540 09/07/16 0540 Results 24 hrs Laboratory Tests Test 09/07/16 05:40 Anion Gap 14 Basophils # 0.0 Basophils % 0.0 Blood Morphology Comment Blood Urea Nitrogen 17 Calcium Level 8.3 L Carbon Dioxide Level 32 H Chloride Level 99 Creatinine 0.95 Eosinophils # 0.2 Eosinophils % 1.3 Glucose Level 94 Hematocrit 34.8 L Hemoglobin 11.4 L Lymphocytes # 1.0 Lymphocytes % 8.3 L Magnesium Level 2.4 Mean Corpuscular Hemoglobin 28.2 L Mean Corpuscular Hemoglobin Concent 32.7 Mean Corpuscular Volume 86.2 Mean Platelet Volume 8.1 Monocytes # 1.1 H Monocytes % 9.1 Neutrophils # 9.5 H Neutrophils % 81.3 H Nucleated Red Blood Cells # 0.0 Nucleated Red Blood Cells % 0.0 Phosphorus Level 3.3 Platelet Count 202 # Potassium Level 3.6 Red Blood Count 4.03 L Red Cell Distribution Width 14.2 Sodium Level 141 White Blood Count 11.6 #H Medications Current Medications Piperacillin Sod/ Tazobactam Sod (Zosyn 3.375gm/ 100 ml (Pmx)) 100 ml @ 200 mls /hr Q8 IVPB Last administered on 09/07/16 06:40; Admin Dose 200 MLS/HR; Start 09/03/16 at 22:00 Famotidine (Pepcid Iv) 20 mg BID IV Last administered on 09/07/16 08:44; Admin Dose 20 MG; Start 09/03/16 at 21:00 Docusate Sodium (Colace) 100 mg BID PO Last administered on 09/07/16 08:44; Admin Dose 100 MG; Start 09/03/16 at 21:00 Ondansetron HCl (Zofran Inj) 4 mg Q6H PRN IV NAUSEA AND/OR VOMITING; Start at 15:30 Acetaminophen (Tylenol Tab) 650 mg Q6H PRN PO PAIN LEVEL 1-3 OR FEVER; Start at 15:30 Ibuprofen (Motrin) 600 mg Q6H PRN PO PAIN LEVEL 1-3 Last administered on 16:20; Admin Dose 600 MG; Start 09/03/16 at 15:30 Enoxaparin Sodium (Lovenox) 40 mg DAILY@07 SC Last administered on 09/07/16 06: 45; Admin Dose 40 MG; Start 09/04/16 at 07:00 Buspirone HCl (Buspar) 5 mg BID PO Last administered on 09/06/16 09:26; Admin Dose 5 MG; Start 09/05/16 at 21:00 Dorzolamide/ Timolol (Cosopt) 1 drop BID LEFT EYE Last administered on 08:47; Admin Dose 1 DROP; Start 09/05/16 at 21:00 Latanoprost (Xalatan) 1 drop DAILY LEFT EYE Last administered on 09/06/16 09:28 ; Admin Dose 1 DROP; Start 09/06/16 at 09:00 Levothyroxine Sodium (Synthroid) 75 mcg DAILY@06 PO Last administered on 06:40; Admin Dose 75 MCG; Start 09/06/16 at 06:00 Lorazepam (Ativan) 0.5 mg HS PRN PO ANXIETY; Start 09/05/16 at 17:30 Salmeterol Xinafoate/ Fluticasone (Advair 250/50 Diskus) 1 inh BID INH Last administered on 09/07/16 08:45; Admin Dose 1 INH; Start 09/05/16 at 21:00 Tiotropium [place] (Spiriva) 1 inh DAILY INH Last administered on 09/07/16 08: 46; Admin Dose 1 INH; Start 09/06/16 at 09:00 Carvedilol (Coreg) 6.25 mg BID PO Last administered on 09/07/16 08:44; Admin Dose 6.25 MG; Start 09/06/16 at 09:30 Hydralazine HCl (Apresoline) 10 mg Q6H PRN IV SBP >170; Start 09/06/16 at 09:30 Clonidine (Catapres) 0.1 mg BID PO Last administered on 09/07/16 08:44; Admin Dose 0.1 MG; Start 09/06/16 at 21:00 Furosemide (Lasix) 40 mg DAILY PO ; Start 09/08/16 at 09:00 Senna (Senokot) 1 tab BID PO Last administered on 09/07/16 11:26; Admin Dose 1 TAB; Start 09/07/16 at 11:00 Polyethylene Glycol (Miralax) 17 gm DAILY GTB ; Start 09/08/16 at 09:00 Assessment/Plan Chief Complaint/Hosp Course IMPRESSION AND PLAN: Post-appendectomy hypoxemia in a patient with extensive tobacco history with likely underlying chronic obstructive pulmonary disease. PATIENT WILL NEED: 1. Continued pulmonary toilet. 2. Incentive spirometry. 3. Continue gentle diuresis consider switch to by mouth Lasix 4. Continue current bronchodilators. 5. Antibiotics per primary team. 6. DVT and GI prophylaxis. 7. Physical therapy evaluation of possible transfer to acute rehabilitation. 8. Outpatient pulmonary function testing. 9. Room air oxygen arterial blood gas Problems: DUDLEY COWAN MD, [facility] Sep 07, 2016 11:31
[2016-09-07 13:33] LABS: Allen Test ACCEPTAB; Arterial Base Excess 6.7 mmol/L (-3.0-3); Arterial COHb 0.9 % (0.0-3.0); Arterial Fraction of Oxyhgb 87.6 % (93.0-99.0); Arterial HCO3 30.2 mmol/L (22.0-26.0); Arterial MetHb 0 % (0.0-1.5); MODE ROOM AIR
[2016-09-07] MEDS ORDERED: FUROSEMIDE 40 MG TAB PO SCH (17:30)
[2016-09-07 20:00] VITALS: BP 167/88; RESP 20
--- NOTE | 2016-09-07 20:06 | PN ---
DATE: 09/07/2016 SUBJECTIVE: Ms. Aguila is now postoperative day 4 status post laparoscopic appendectomy. The pat ient is feeling better. She is tolerating a soft diet and passing flatus. PHYSICAL EXAMINATION: VITAL SIGNS: She is afebrile. Vital signs stable. ABDOMEN: Soft, nondistended. LABORATORY DATA: Her white count 11.6, hematocrit 35 and platelets of 202 today. Her sodium is 141 , potassium 3.6, chloride 99, CO2 32, BUN and creatinine 17 and 0.9 and glucose of 94. ASSESSMENT AND PLAN: Ms. Aguila is an 86-year-old female postop day 4 from a laparoscopic appende ctomy. 1. No surgical issues at this point. 2. Okay to discharge from surgical perspective. 3. I gave the patient Augmentin for 7 days, Percocet and Colace. Dictated By: TRISTAN MYLES/NTS Conf#: [id number] DID#: [id number]
[2016-09-07] MEDS ORDERED: SERTRALINE 100 MG TAB PO SCH (21:00)
[2016-09-08] MEDS: LEVOTHYROXINE 75 MCG TAB PO SCH (06:03)
[2016-09-08] MEDS: PIPER-TAZO 3.375 GM IV (PMX) 100 ML IVPB SCH ×2 (06:03→14:58)
[2016-09-08] MEDS: ENOXAPARIN 40 MG/0.4 ML SYG SC SCH (06:19)
[2016-09-08 07:51] LABS: EOSINOPHILS % 0.3 % (0.0-7.0); HEMATOCRIT 37.7 % (37.0-47.0); HEMOGLOBIN 12.3 g/dl (12.0-16.0); LYMPHOCYTES # 1.2 10^3/ul (0.8-2.9); LYMPHOCYTES % 9.4 % (15.0-51.0); MEAN CORPUSCULAR HGB CONC 32.7 g/dl (32.0-37.0); MEAN CORPUSCULAR VOLUME 85.6 fl (82.0-101.0); MEAN PLATELET VOLUME 8.1 fl (7.4-10.4); MONOCYTE # 1.2 10^3/ul (0.3-0.9); MONOCYTES % 9.2 % (0.0-11.0); NEUTROPHIL # 10.5 10^3/ul (1.6-7.5); NEUTROPHILS % 81.1 % (39.0-77.0); PLATELET COUNT 238 10^3/UL (140-440); RED BLOOD COUNT 4.41 10^6/ul (4.20-5.40); RED CELL DISTRIBUTION WIDTH 14.1 % (11.5-14.5); UNCORRECTED WBC 12.9 10^3/ul (4.8-10.8); WHITE BLOOD COUNT 12.9 10^3/ul (4.8-10.8)
[2016-09-08 07:57] VITALS: BP 131/71; RESP 22
[2016-09-08 07:59] LABS: POTASSIUM 3.4 mmol/L (3.5-5.1)
[2016-09-08 08:02] LABS: CALCIUM 8.6 mg/dl (8.4-10.2); CREATININE 0.86 mg/dl (0.44-1.00)
[2016-09-08 08:28] LABS: CONDITION 1
[2016-09-08] MEDS: SENNA TAB PO SCH (09:00)
[2016-09-08] MEDS: BUSPIRONE 5 MG TAB PO SCH (09:00)
[2016-09-08] MEDS ORDERED: FUROSEMIDE 40 MG TAB PO SCH ×2 (09:00)
[2016-09-08] MEDS ORDERED: POLYETHYLENE GLYCOL 17 GM PACKET GTB SCH (09:00)
[2016-09-08] MEDS: DOCUSATE SODIUM 100 MG CAP PO SCH (09:00)
[2016-09-08] MEDS: LATANOPROST 0.005% 2.5 ML OPH LEFT EYE SCH (09:00)
[2016-09-08] MEDS: FAMOTIDINE 20 MG INJ IV SCH (10:01)
[2016-09-08] MEDS: SALMETEROL/FLUTICASONE 250/50 INHA INH SCH (10:02)
[2016-09-08] MEDS: DORZOLAMIDE/TIMOLOL 10 ML OPH LEFT EYE SCH (10:02)
[2016-09-08 10:06] VITALS: BP 122/69; PULSE 76
[2016-09-08] MEDS ORDERED: LOPERAMIDE 2 MG CAP PO ONE (10:30)
--- NOTE | 2016-09-08 10:51 | CONS ---
Date/Time of Note Date/Time of Note DATE: 09/08/16 TIME: 10:50 Assessment/Plan Assessment/Plan Additional Assessment/Plan Acute decompensated diastolic congestive heart failure. Acute appendicitis status post surgery Postoperative hypotension, resolved Preserved ejection fraction Hypertension -Will decrease Lasix to 20 mg by mouth daily, supplement potassium, blood pressure trend improving. DC planning Consultation Date/Type/Reason Admit Date/Time Sep 03, 2016 at 19:55 Initial Consult Date Type of Consultation: cv 24 HR Interval Summary Free Text/Dictation Patient denies shortness of breath or chest pain, complaining of frequent bowel movements since last night Exam/Review of Systems Vital Signs Vitals Vital Signs Date Time Temp Pulse Resp B/P Pulse Ox O2 Delivery O2 Flow Rate FiO2 09/08/16 10:06 76 122/69 09/08/16 08:12 4.0 09/08/16 07:57 97.9 22 96 09/07/16 20:00 Nasal Cannula 09/04/16 20:12 40 Intake and Output 09/07/16 09/07/16 09/08/16 15:00 23:00 07:00 Intake Total 100 ml 1280 ml 400 ml Output Total 1400 ml 950 ml Balance 100 ml -120 ml -550 ml Exam Sitting in chair, no apparent distress Constitutional: alert, oriented Head: normocephalic Neck: supple Respiratory: other (course breath sounds bilaterally, no wheezing) Cardiovascular: other (S1 and S2 heard), regular rate and rhythm Gastrointestinal: bowel sounds, non-tender, soft Extremities: other (no edema) Results Result Diagram: 09/08/16 0643 09/08/16 0643 Results 24 hrs Laboratory Tests Test 09/07/16 13:00 09/08/16 06:43 Arterial Blood HCO3 30.2 H Arterial Blood Base Excess 6.7 H Arterial Blood Oxygen Saturation 88.4 L Daniel Test ACCEPTAB Arterial Blood Gas Puncture Site Right Radial Arterial Blood Carboxyhemoglobin 0.9 Arterial Blood Date Drawn 09/07/2016 1:10:39 PM Arterial Blood Methemoglobin 0 Arterial Blood pCO2 (Temp correct) 39.4 Arterial Blood pH (Temp corrected) 7.503 H Arterial Blood pO2 (Temp corrected) 51.6 *L Blood Gas A-a O2 Differential 51.0 H Blood Gas Critical Value Read Back DR COWAN Blood Gas Modality ROOM AIR Blood Gas Notified Time 09/07/2016 1:32:32 PM Blood Gas Notified Whom JLD Blood Gas Specimen Source Blood arterial Blood Gas Temperature 37.0 FiO2 21.0 Oxyhemoglobin Percent 87.6 L Total Hemoglobin 14.0 Anion Gap 19 H Basophils # 0.0 Basophils % 0.0 Blood Morphology Comment Blood Urea Nitrogen 23 H Calcium Level 8.6 Carbon Dioxide Level 26 Chloride Level 95 L Creatinine 0.86 Eosinophils # 0.0 Eosinophils % 0.3 Glucose Level 129 Hematocrit 37.7 Hemoglobin 12.3 Lymphocytes # 1.2 Lymphocytes % 9.4 L Mean Corpuscular Hemoglobin 28.0 L Mean Corpuscular Hemoglobin Concent 32.7 Mean Corpuscular Volume 85.6 Mean Platelet Volume 8.1 Monocytes # 1.2 H Monocytes % 9.2 Neutrophils # 10.5 H Neutrophils % 81.1 H Nucleated Red Blood Cells # 0.0 Nucleated Red Blood Cells % 0.0 Platelet Count 238 Potassium Level 3.4 L Red Blood Count 4.41 Red Cell Distribution Width 14.1 Sodium Level 137 White Blood Count 12.9 H Medications Medications Current Medications Piperacillin Sod/ Tazobactam Sod (Zosyn 3.375gm/ 100 ml (Pmx)) 100 ml @ 200 mls /hr Q8 IVPB Last administered on 09/08/16 06:03; Admin Dose 200 MLS/HR; Start 09/03/16 at 22:00 Famotidine (Pepcid Iv) 20 mg BID IV Last administered on 09/08/16 10:01; Admin Dose 20 MG; Start 09/03/16 at 21:00 Docusate Sodium (Colace) 100 mg BID PO Last administered on 09/07/16 21:37; Admin Dose 100 MG; Start 09/03/16 at 21:00; Status Future Hold Ondansetron HCl (Zofran Inj) 4 mg Q6H PRN IV NAUSEA AND/OR VOMITING; Start at 15:30 Acetaminophen (Tylenol Tab) 650 mg Q6H PRN PO PAIN LEVEL 1-3 OR FEVER; Start at 15:30 Ibuprofen (Motrin) 600 mg Q6H PRN PO PAIN LEVEL 1-3 Last administered on 16:20; Admin Dose 600 MG; Start 09/03/16 at 15:30 Enoxaparin Sodium (Lovenox) 40 mg DAILY@07 SC Last administered on 09/08/16 06: 19; Admin Dose 40 MG; Start 09/04/16 at 07:00 Buspirone HCl (Buspar) 5 mg BID PO Last administered on 09/06/16 09:26; Admin Dose 5 MG; Start 09/05/16 at 21:00 Dorzolamide/ Timolol (Cosopt) 1 drop BID LEFT EYE Last administered on 10:02; Admin Dose 1 DROP; Start 09/05/16 at 21:00 Latanoprost (Xalatan) 1 drop DAILY LEFT EYE Last administered on 09/06/16 09:28 ; Admin Dose 1 DROP; Start 09/06/16 at 09:00 Levothyroxine Sodium (Synthroid) 75 mcg DAILY@06 PO Last administered on 06:03; Admin Dose 75 MCG; Start 09/06/16 at 06:00 Lorazepam (Ativan) 0.5 mg HS PRN PO ANXIETY; Start 09/05/16 at 17:30 Salmeterol Xinafoate/ Fluticasone (Advair 250/50 Diskus) 1 inh BID INH Last administered on 09/08/16 10:02; Admin Dose 1 INH; Start 09/05/16 at 21:00 Tiotropium [place] (Spiriva) 1 inh DAILY INH Last administered on 09/07/16 08: 46; Admin Dose 1 INH; Start 09/06/16 at 09:00 Carvedilol (Coreg) 6.25 mg BID PO Last administered on 09/08/16 10:02; Admin Dose 6.25 MG; Start 09/06/16 at 09:30 Hydralazine HCl (Apresoline) 10 mg Q6H PRN IV SBP >170; Start 09/06/16 at 09:30 Clonidine (Catapres) 0.1 mg BID PO Last administered on 09/07/16 21:37; Admin Dose 0.1 MG; Start 09/06/16 at 21:00 Furosemide (Lasix) 40 mg DAILY PO Last administered on 09/08/16 10:01; Admin Dose 40 MG; Start 09/08/16 at 09:00 Senna (Senokot) 1 tab BID PO Last administered on 09/07/16 21:38; Admin Dose 1 TAB; Start 09/07/16 at 11:00; Status Future Hold Polyethylene Glycol (Miralax) 17 gm DAILY GTB ; Start 09/08/16 at 09:00; Status Future Hold Sertraline HCl (Zoloft) 100 mg HS PO Last administered on 09/07/16 21:38; Admin Dose 100 MG; Start 09/07/16 at 21:00 Taco Castillo DO Sep 08, 2016 10:51
[2016-09-08] MEDS ORDERED: POTASSIUM CHLORIDE (SR) 20 MEQ TAB PO STA (10:52)
--- NOTE | 2016-09-08 11:10 | PDOCDIS ---
Discharge Instructions CONDITION Patient Condition: Stable HOME CARE INSTRUCTIONS: Special Diet: SOFT ACTIVITY: Activity Restrictions: Slowly Increase Activity FOLLOW UP/APPOINTMENTS Appointments Please take you medications as prescribed, and see your doctor in the clinic in 1 week. LUIS DANIEL MICHEL Sep 08, 2016 11:10
[2016-09-08] MEDS ORDERED: LOPE2CAP PO (11:13)
[2016-09-08] MEDS ORDERED: FURO40TA4 PO (11:13)
[2016-09-08] MEDS ORDERED: LEVO750T8 PO (11:13)
--- NOTE | 2016-09-08 12:01 | DS ---
DATE OF ADMISSION: 09/03/2016 DATE OF DISCHARGE: 09/08/2016 An 86-year-old female originally admitted on 09/04/2016 being discharged home on 09/08/2016. HOSPITAL COURSE: The patient came in with abdominal pain. She was found with acute appendicitis. She underwent laparoscopic appendectomy. Afterwards she required care for a couple of days in the I because she had some postop hypotension. She was given fluids and this resolved; however, the julio hua did have some pulmonary edema as a subsequence and some mild congestive heart failure exacerba tion, so the fluids were stopped and she was diuresed. During this hospital stay, she was seen by g eneral surgery team, cardiology team and palliative care team as well as pulmonary team. The patien t also had some shortness of breath symptoms. She was treated with breathing treatments along with Lasix. She diuresed well. Her blood pressure stabilized. She had some leukocytosis secondary to a n upper respiratory infection and this was resolving by the time of discharge. Her cultures were ne gative. She had no significant fevers. She worked with physical therapy as well. Her ABG; however , did show some hypoxia that required an order for home O2. So, we are going to order that today, b ut otherwise patient has been cleared by the surgery team and cardiology team for discharge home toramiro adler. She will be discharged with home oxygen at 3 liters per day for 24 hours. She will need: 1. Lasix 20 mg p.o. daily. 2. Levaquin 750 mg daily. 3. Imodium 2 mg p.o. q.6h. p.r.n. 4. BuSpar 5 mg b.i.d. 5. Coreg 6.25 mg b.i.d. 6. Clonidine 0.1 mg p.o. b.i.d. p.r.n. systolic greater than 200. 7. Cosopt drops in the left eye b.i.d. 8. Hyoscyamine sulfate 0.125 mg p.o. q.4h. p.r.n. 9. Imipramine 25 mg at bedtime. 10. Xalatan one drop in left eye daily. 11. Levothyroxine 75 mcg daily. 12. Ativan 0.5 mg p.o. at bedtime p.r.n. 13. Myrbetriq 25 mg daily. 14. Actonel 35 mg q. weekly. 15. Advair 250/50 inhaled b.i.d. 16. Spiriva inhaled daily. She will need to follow up again with general surgery team in the clinic as an outpatient. Her echocardiogram showed ejection fraction 65%, normal left ventricular systolic function, normal l eft ventricular cavity size, normal left ventricular wall thickness, no valvular stenosis or regurgi tation was seen. FINAL DIAGNOSES: 1. Abdominal pain secondary to acute appendicitis status post laparoscopic appendectomy. 2. Shortness of breath secondary to mild congestive heart failure exacerbation, now improved with d iuresis. 3. Respiratory distress with some hypoxia secondary to chronic obstructive pulmonary disease, now g oing home on home oxygen. 4. Postop hypotension, resolved. 5. Leukocytosis secondary to upper respiratory infection, now on antibiotics. 6. Mild renal insufficiency, resolved. 7. High cholesterol. 8. Essential hypertension. 9. History of chronic obstructive pulmonary disease, former smoker. 10. History of depression. 11. Hypothyroidism. 12. High cholesterol. 13. History of glaucoma. 14. Constipation. Time spent discharging patient 45 minutes. Dictated By: LUIS DANIEL RICHARDSON Conf#: [id number] DID#: [id number]
[2016-09-08 13:00] VITALS: BP 114/72; PULSE 75
--- NOTE | 2016-09-08 14:13 | DS ---
Date/Time of Note Date/Time of Note DATE: 09/08/16 TIME: 14:10 Discharge Summary Admission/Discharge Info Admit Date/Time Sep 03, 2016 at 19:55 Discharge Date/Time Final Diagnosis FINAL DIAGNOSES: 1. Abdominal pain secondary to acute appendicitis status post laparoscopic appendectomy. 2. Shortness of breath secondary to mild congestive heart failure exacerbation , now improved with diuresis. 3. Respiratory distress with some hypoxia secondary to chronic obstructive pulmonary disease, now going home on home oxygen. 4. Postop hypotension, resolved. 5. Leukocytosis secondary to upper respiratory infection, now on antibiotics. 6. Mild renal insufficiency, resolved. 7. High cholesterol. 8. Essential hypertension. 9. History of chronic obstructive pulmonary disease, former smoker. 10. History of depression. 11. Hypothyroidism. 12. High cholesterol. 13. History of glaucoma. 14. Constipation. 15. 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 Time spent discharging patient 45 minutes. Hospital Course The patient came in with abdominal pain. She was found with acute appendicitis. She underwent laparoscopic appendectomy. Afterwards she required care for a couple of days in the ICU because she had some postop hypotension. She was given fluids and this resolved; however, the patient did have some pulmonary edema as a subsequence and some mild congestive heart failure exacerbation, so the fluids were stopped and she was diuresed. During this hospital stay, she was seen by general surgery team, cardiology team and palliative care team as well as pulmonary team. The patient also had some shortness of breath symptoms. She was treated with breathing treatments along with Lasix. She diuresed well. Her echocardiogram showed ejection fraction 65% , normal left ventricular systolic function, normal left ventricular cavity size , normal left ventricular wall thickness, no valvular stenosis or regurgitation was seen. Her blood pressure stabilized. She had some leukocytosis secondary to an upper respiratory infection and this was resolving by the time of discharge. Her cultures were negative. She had no significant fevers. She worked with physical therapy as well. Her ABG; however, did show some hypoxia that required an order for home O2. She also has continued to work with PT and has had some continuing needs, as she has some signs of disuse myopathy and would benefit from continue rehab the next few days for further recovery. So, we are going to order that today, but otherwise patient has been cleared by the surgery team and cardiology team for discharge today. She will be discharged with oxygen at 3 liters per day for 24 hours. She will need: 1. Lasix 20 mg p.o. daily. 2. Levaquin 750 mg daily. 3. Imodium 2 mg p.o. q.6h. p.r.n. 4. BuSpar 5 mg b.i.d. 5. Coreg 6.25 mg b.i.d. 6. Clonidine 0.1 mg p.o. b.i.d. p.r.n. systolic greater than 200. 7. Cosopt drops in the left eye b.i.d. 8. Hyoscyamine sulfate 0.125 mg p.o. q.4h. p.r.n. 9. Imipramine 25 mg at bedtime. 10. Xalatan one drop in left eye daily. 11. Levothyroxine 75 mcg daily. 12. Ativan 0.5 mg p.o. at bedtime p.r.n. 13. Myrbetriq 25 mg daily. 14. Actonel 35 mg q. weekly. 15. Advair 250/50 inhaled b.i.d. 16. Spiriva inhaled daily. She will need to follow up again with general surgery team in the clinic as an outpatient. Home Meds Active Scripts Loperamide Hcl* (Imodium*) 2 Mg Capsule, 2 MG PO Q6H Y for DIARRHEA, #10 CAP MAX 16 mg/day Prov:LUIS DANIEL MICHEL S. 09/08/16 Levofloxacin* (Levofloxacin*) 750 Mg Tablet, 750 MG PO DAILY for 7 Days, TAB Prov:LUIS DANIEL MICHEL S. 09/08/16 Furosemide* (Furosemide*) 40 Mg Tablet, 20 MG PO DAILY@06, #30 TAB 1 Refill Prov:LUIS DANIEL MICHEL S. 09/08/16 Clonidine Hcl* (Clonidine Hcl*) 0.1 Mg Tab, 0.1 MG PO BID for Blood Pressure> 200 Systolic, #10 TAB 4 Refills Prov:LONG DELACRUZ MD 02/13/15 Reported Medications Carvedilol* (Coreg*) 6.25 Mg Tablet, 6.25 MG PO BID, TAB 02/13/15 Salmeterol Xinaf/Fluticasone* (Advair*) 250-50 Diskus Inhaler, 1 INH INH BID, INH 02/13/15 Dorzolamide-Timolol* (Cosopt*) 2%-0.5% Soln, 1 DROP LEFT EYE BID, BOTTLE 02/01/15 Latanoprost (Xalatan) 2.5 Ml Drops, 1 DROP LEFT EYE DAILY 02/01/15 Imipramine Hcl* (Imipramine Hcl*) 25 Mg Tablet, 25 MG PO HS, TAB 02/01/15 Hyoscyamine Sulfate* (Hyoscyamine Sulfate* ODT) 0.125 Mg/Tab Tab.rapdis, 0.125 MG PO Q4H NEEDED, TAB 02/01/15 Levothyroxine Sodium* (Levothyroxine Sodium*) 75 Mcg Tablet, 75 MCG PO DAILY, TAB 02/01/15 Buspirone Hcl* (Buspar*) 5 Mg Tab, 5 MG PO BID, TAB 02/01/15 Mirabegron (Mybetriq) 25 Mg Tab.er.24h, 25 MG PO DAILY, TAB 02/01/15 Lorazepam* (Ativan*) 0.5 Mg Tablet, 0.5 MG PO HS Y for ANXIETY, TAB 02/01/15 Tiotropium [place]* (Spiriva*) 18 Mcg Cap.w.dev, 1 INH IH DAILY, EA 02/01/15 Risedronate* (Actonel*) 35 Mg Tablet, 35 MG PO Q7D, TAB ON Sunday02/01/15 Pending Labs Laboratory Tests Test 09/08/16 06:43 Anion Gap 19 (8-16) Basophils # 0.010^3/ul (0.0-0.1) Basophils % 0.0% (0.0-2.0) Blood Morphology Comment Blood Urea Nitrogen 23mg/dl (7-20) Calcium Level 8.6mg/dl (8.4-10.2) Carbon Dioxide Level 26mmol/L (21-31) Chloride Level 95mmol/L (97-110) Creatinine 0.86mg/dl (0.44-1.00) Eosinophils # 0.010^3/ul (0.0-0.5) Eosinophils % 0.3% (0.0-7.0) Glucose Level 129mg/dl (70-220) Hematocrit 37.7% (37.0-47.0) Hemoglobin 12.3g/dl (12.0-16.0) Lymphocytes # 1.210^3/ul (0.8-2.9) Lymphocytes % 9.4% (15.0-51.0) Mean Corpuscular Hemoglobin 28.0pg (29.0-33.0) Mean Corpuscular Hemoglobin Concent 32.7g/dl (32.0-37.0) Mean Corpuscular Volume 85.6fl (82.0-101.0) Mean Platelet Volume 8.1fl (7.4-10.4) Monocytes # 1.210^3/ul (0.3-0.9) Monocytes % 9.2% (0.0-11.0) Neutrophils # 10.510^3/ul (1.6-7.5) Neutrophils % 81.1% (39.0-77.0) Nucleated Red Blood Cells # 0.010^3/ul (0.0-0.0) Nucleated Red Blood Cells % 0.0/100WBC (0.0-0.0) Platelet Count 41289^3/UL (140-440) Potassium Level 3.4mmol/L (3.5-5.1) Red Blood Count 4.4110^6/ul (4.20-5.40) Red Cell Distribution Width 14.1% (11.5-14.5) Sodium Level 137mmol/L (135-144) White Blood Count 12.910^3/ul (4.8-10.8) LUIS DANIEL MICHEL Sep 08, 2016 14:13
--- NOTE | 2016-09-08 14:15 | CONS ---
Date/Time of Note Date/Time of Note DATE: 09/08/16 TIME: 14:14 Consult Date/Type/Reason Admit Date/Time Sep 03, 2016 at 19:55 Type of Consultation: pulmonary Subjective Patient remained stable slowly improving Beginning to ambulate with walker Objective Vital Signs Date Time Temp Pulse Resp B/P Pulse Ox O2 Delivery O2 Flow Rate FiO2 09/08/16 13:00 75 114/72 09/08/16 12:51 87 Room Air 09/08/16 12:50 3.0 09/08/16 07:57 97.9 22 09/04/16 20:12 40 Intake and Output 09/07/16 09/07/16 09/08/16 14:59 22:59 06:59 Intake Total 100 ml 1280 ml 400 ml Output Total 1400 ml 950 ml Balance 100 ml -120 ml -550 ml PHYSICAL EXAMINATION: GENERAL: Elderly-appearing lady, comfortable at rest, no acute distress. VITAL SIGNS: as above NECK: Supple. No JVD or lymphadenopathy. CARDIAC: S1, S2, no added sounds or murmurs. CHEST: Diminished air entry bilaterally. ABDOMEN: Soft, nontender. No guarding or rebound. EXTREMITIES: No cyanosis, clubbing, edema. NEUROLOGIC: Generalized weakness. Results/Medications Result Diagram: 09/08/16 0643 09/08/16 0643 Results 24 hrs Laboratory Tests Test 09/08/16 06:43 Anion Gap 19 H Basophils # 0.0 Basophils % 0.0 Blood Morphology Comment Blood Urea Nitrogen 23 H Calcium Level 8.6 Carbon Dioxide Level 26 Chloride Level 95 L Creatinine 0.86 Eosinophils # 0.0 Eosinophils % 0.3 Glucose Level 129 Hematocrit 37.7 Hemoglobin 12.3 Lymphocytes # 1.2 Lymphocytes % 9.4 L Mean Corpuscular Hemoglobin 28.0 L Mean Corpuscular Hemoglobin Concent 32.7 Mean Corpuscular Volume 85.6 Mean Platelet Volume 8.1 Monocytes # 1.2 H Monocytes % 9.2 Neutrophils # 10.5 H Neutrophils % 81.1 H Nucleated Red Blood Cells # 0.0 Nucleated Red Blood Cells % 0.0 Platelet Count 238 Potassium Level 3.4 L Red Blood Count 4.41 Red Cell Distribution Width 14.1 Sodium Level 137 White Blood Count 12.9 H Medications Current Medications Piperacillin Sod/ Tazobactam Sod (Zosyn 3.375gm/ 100 ml (Pmx)) 100 ml @ 200 mls /hr Q8 IVPB Last administered on 09/08/16 06:03; Admin Dose 200 MLS/HR; Start 09/03/16 at 22:00 Famotidine (Pepcid Iv) 20 mg BID IV Last administered on 09/08/16 10:01; Admin Dose 20 MG; Start 09/03/16 at 21:00 Docusate Sodium (Colace) 100 mg BID PO Last administered on 09/07/16 21:37; Admin Dose 100 MG; Start 09/03/16 at 21:00; Status Future Hold Ondansetron HCl (Zofran Inj) 4 mg Q6H PRN IV NAUSEA AND/OR VOMITING; Start at 15:30 Acetaminophen (Tylenol Tab) 650 mg Q6H PRN PO PAIN LEVEL 1-3 OR FEVER; Start at 15:30 Ibuprofen (Motrin) 600 mg Q6H PRN PO PAIN LEVEL 1-3 Last administered on 16:20; Admin Dose 600 MG; Start 09/03/16 at 15:30 Enoxaparin Sodium (Lovenox) 40 mg DAILY@07 SC Last administered on 09/08/16 06: 19; Admin Dose 40 MG; Start 09/04/16 at 07:00 Buspirone HCl (Buspar) 5 mg BID PO Last administered on 09/06/16 09:26; Admin Dose 5 MG; Start 09/05/16 at 21:00 Dorzolamide/ Timolol (Cosopt) 1 drop BID LEFT EYE Last administered on 10:02; Admin Dose 1 DROP; Start 09/05/16 at 21:00 Latanoprost (Xalatan) 1 drop DAILY LEFT EYE Last administered on 09/06/16 09:28 ; Admin Dose 1 DROP; Start 09/06/16 at 09:00 Levothyroxine Sodium (Synthroid) 75 mcg DAILY@06 PO Last administered on 06:03; Admin Dose 75 MCG; Start 09/06/16 at 06:00 Lorazepam (Ativan) 0.5 mg HS PRN PO ANXIETY; Start 09/05/16 at 17:30 Salmeterol Xinafoate/ Fluticasone (Advair 250/50 Diskus) 1 inh BID INH Last administered on 09/08/16 10:02; Admin Dose 1 INH; Start 09/05/16 at 21:00 Tiotropium [place] (Spiriva) 1 inh DAILY INH Last administered on 09/07/16 08: 46; Admin Dose 1 INH; Start 09/06/16 at 09:00 Carvedilol (Coreg) 6.25 mg BID PO Last administered on 09/08/16 10:02; Admin Dose 6.25 MG; Start 09/06/16 at 09:30 Hydralazine HCl (Apresoline) 10 mg Q6H PRN IV SBP >170; Start 09/06/16 at 09:30 Clonidine (Catapres) 0.1 mg BID PO Last administered on 09/07/16 21:37; Admin Dose 0.1 MG; Start 09/06/16 at 21:00 Senna (Senokot) 1 tab BID PO Last administered on 09/07/16 21:38; Admin Dose 1 TAB; Start 09/07/16 at 11:00; Status Future Hold Polyethylene Glycol (Miralax) 17 gm DAILY GTB ; Start 09/08/16 at 09:00; Status Future Hold Sertraline HCl (Zoloft) 100 mg HS PO Last administered on 09/07/16 21:38; Admin Dose 100 MG; Start 09/07/16 at 21:00 Furosemide (Lasix) 20 mg DAILY@06 PO ; Start 09/09/16 at 06:00 Assessment/Plan Chief Complaint/Hosp Course IMPRESSION AND PLAN: Post-appendectomy hypoxemia in a patient with extensive tobacco history with likely underlying chronic obstructive pulmonary disease. PATIENT WILL NEED: 1. Continued pulmonary toilet. 2. Incentive spirometry. 3. Continue gentle diuresis consider switch to by mouth Lasix 4. Continue current bronchodilators. 5. Antibiotics per primary team. 6. DVT and GI prophylaxis. 7. Physical therapy evaluation of possible transfer to acute rehabilitation. 8. Outpatient pulmonary function testing. 9. Home O2 at 3 L continuous 10. Follow-up with me in the office Discharge planning okay with me. Problems: DUDLEY COWAN MD, FCCP Sep 08, 2016 14:15
[2016-09-08] MEDS ORDERED: VITAMIN A & D 5 GM OINT PACKET TOP ONE (17:09)
[2016-09-09] MEDS ORDERED: FUROSEMIDE 40 MG TAB PO SCH (06:00)
== END 2016-09-08 18:30 | DRG 341 ==
LOC: E/R 08:40 → ICU 19:55 → MS2 09-04 20:50
PROVIDERS: ADMIT Family Medicine; ATTEND Family Medicine
PROC: 0DTJ4ZZ Resection of Appendix, Percutaneous Endoscopic Approach (ICD-10-PCS; principal; 2016-09-03 15:30)
DX: K35.80 Unspecified acute appendicitis (principal); I50.33 Acute on chronic diastolic (congestive) heart failure; J18.9 Pneumonia, unspecified organism; J44.9 Chronic obstructive pulmonary disease, unspecified; K56.7 Ileus, unspecified; I10 Essential (primary) hypertension; F32.9 Major depressive disorder, single episode, unspecified; E03.9 Hypothyroidism, unspecified; H40.9 Unspecified glaucoma; N28.9 Disorder of kidney and ureter, unspecified; K59.00 Constipation, unspecified; I95.81 Postprocedural hypotension; D72.829 Elevated white blood cell count, unspecified; Z87.891 Personal history of nicotine dependence; R09.02 Hypoxemia
CPT/HCPCS: 36415; 36600; 71010; 74177; 80048; 80053; 81001; 81003; 82803; 83690; 83735; 83880; 84100; 84484; 85025; 85610; 85730; 88304; 93005; 93306; 94640; 94664; 96374; 96375; 96376; 97110; 97116; 97162; 97530; J0131; J0330; J1100; J1650; J1940; J2270; J2370; J2405; J2543; J2710; J3010; J3475; J7030; J7040; J7042; J7050; P9045; Q9967

== ENCOUNTER 2016-09-08 17:34 | Inpatient (IN) | payer MEDICARE, OTHER ==
[~2016-09-08] VITALS: Ht 157.5 cm; Wt 64.0 kg
[~2016-09-08 17:34] MED LIST changes: -EPHEDrine SULFATE 50 MG/5 ML SYG ONE; +FURO40TA4 PO; +LEVO750T8 PO; +LOPE2CAP PO
[2016-09-08 18:50] VITALS: BP 141/76; PULSE 84; RESP 18
[2016-09-08 18:57] VITALS: Ht 157.5 cm; Wt 64.0 kg
[2016-09-08] MEDS ORDERED: ONDANSETRON 4 MG INJ IV PRN (19:01)
[2016-09-08] MEDS ORDERED: IBUPROFEN 600 MG TAB PO PRN (19:01)
[2016-09-08] MEDS ORDERED: DOCUSATE SODIUM 100 MG CAP PO SCH (19:01)
[2016-09-08] MEDS ORDERED: hydrALAzine 20 MG INJ IV PRN (19:01)
[2016-09-08] MEDS ORDERED: SENNA TAB PO SCH (19:01)
[2016-09-08] MEDS ORDERED: ALBUTEROL/IPRATROPIUM (NEB) 3 ML AMP HHN PRN (19:01)
[2016-09-08] MEDS ORDERED: POLYETHYLENE GLYCOL 17 GM PACKET GTB SCH (19:01)
[2016-09-08] MEDS ORDERED: ACETAMINOPHEN 325 MG TAB PO PRN (19:01)
[2016-09-08] MEDS ORDERED: LORAZEPAM 0.5 MG TAB PO PRN (19:01)
[2016-09-08] MEDS ORDERED: LOPERAMIDE 2 MG CAP PO PRN (19:30)
[2016-09-08] MEDS: FAMOTIDINE 20 MG INJ IV SCH (21:00)
[2016-09-08] MEDS: BUSPIRONE 5 MG TAB PO SCH (21:00)
[2016-09-08 21:04] VITALS: BP 165/96; PULSE 85
[2016-09-08] MEDS: ZOLPIDEM 5 MG TAB PO PRN (21:20)
[2016-09-08] MEDS: SERTRALINE 100 MG TAB PO SCH (21:21)
[2016-09-08] MEDS: DORZOLAMIDE/TIMOLOL 10 ML OPH LEFT EYE SCH (21:21)
[2016-09-08] MEDS: LEVOFLOXACIN 750 MG TABLET PO SCH (21:21)
[2016-09-08] MEDS: SALMETEROL/FLUTICASONE 250/50 INHA INH SCH (21:22)
[2016-09-08 23:34] LABS: ADD UMIC YES; URINE BILIRUBIN (Dip) 1+ (NEGATIVE); URINE BLOOD (Dip) 3+ (NEGATIVE); URINE COLOR YELLOW (YELLOW); URINE GLUCOSE (Dip) NEGATIVE (NEGATIVE); URINE KETONES (Dip) 15 (NEGATIVE); URINE LEUKOCYTE ESTERASE (Dip) TRACE (NEGATIVE); URINE NITRITE (Dip) NEGATIVE (NEGATIVE); URINE TOTAL PROTEIN (Dip) TRACE (NEGATIVE); URINE UROBILINOGEN (Dip) 0.2 E.U./dL (0.1-1.0)
[2016-09-09 00:03] LABS: BACTERIA,URINE FEW; ICTOTEST NEGATIVE (NEGATIVE); SQUAMOUS EPITHELIAL CELL,UR OCCASIONAL; URINE RBCS >50 /HPF (0)
[2016-09-09] MEDS: LEVOTHYROXINE 75 MCG TAB PO SCH (06:48)
[2016-09-09] MEDS: FUROSEMIDE 40 MG TAB PO SCH (06:48)
[2016-09-09 06:49] VITALS: BP 133/62; PULSE 85
[2016-09-09] MEDS: ENOXAPARIN 40 MG/0.4 ML SYG SC SCH (06:49)
[2016-09-09 08:00] VITALS: BP 124/58; PULSE 90; RESP 18
[2016-09-09] MEDS: FAMOTIDINE 20 MG INJ IV SCH (08:33)
[2016-09-09] MEDS: SALMETEROL/FLUTICASONE 250/50 INHA INH SCH ×2 (08:37→20:50)
[2016-09-09] MEDS: TIOTROPIUM 18 MCG CAPSULE INHA DEV INH SCH (08:38)
[2016-09-09] MEDS: DORZOLAMIDE/TIMOLOL 10 ML OPH LEFT EYE SCH ×2 (08:38→20:51)
[2016-09-09] MEDS: BUSPIRONE 5 MG TAB PO SCH ×2 (08:39→20:52)
[2016-09-09] MEDS: LATANOPROST 0.005% 2.5 ML OPH LEFT EYE SCH (08:39)
[2016-09-09 08:47] LABS: ALBUMIN 2.9 g/dl (3.3-4.9); POTASSIUM 3.2 mmol/L (3.5-5.1)
[2016-09-09 08:50] LABS: ALBUMIN/GLOBULIN RATIO 0.9; BILIRUBIN,INDIRECT 0.2 mg/dl (0-1.1); BILIRUBIN,TOTAL 0.2 mg/dl (0.2-1.3); CALCIUM 8.4 mg/dl (8.4-10.2); CREATININE 0.9 mg/dl (0.44-1.00); TOTAL PROTEIN 6.1 g/dl (6.1-8.1)
--- NOTE | 2016-09-09 09:21 | CONS ---
DATE OF ADMISSION: 09/08/2016 DATE OF CONSULTATION: 09/09/2016 TYPE OF CONSULTATION: Rehabilitation post-admission physician evaluation REHABILITATION IMPAIRMENT CATEGORY: Diffuse myopathy in addition to debility secondary to postsurgi kelly recovery and respiratory distress. ACTIVE COMORBIDITIES: 1. Appendicitis, status post appendectomy. 2. Respiratory distress secondary to congestive heart failure and chronic obstructive pulmonary dis ease exacerbations. 3. Postoperative hypotension. 4. Renal insufficiency. 5. Hypertension. 6. Hypothyroidism. 7. Hypercholesterolemia. 8. Glaucoma. 9. Hemorrhoids. 10. Impairments in self-care and mobility. HISTORY OF PRESENT ILLNESS: The patient is a pleasant 86-year-old female with a history of multiple medical comorbidities who was admitted to [facility] with significant abdominal p ain. The patient was noted to have acute appendicitis and did undergo laparoscopic appendectomy. H er postoperative course was notable for postoperative hypotension requiring an ICU stay in addition to respiratory distress due to congestive heart failure and chronic obstructive pulmonary disease ex acerbation. The patient was noted to have significant weakness, presumed secondary to her critical illness and diffuse myopathy. The patient has significant impairments in self-care and mobility as compared to baseline, and has been cleared to transfer to the rehabilitation unit for comprehensive interdisciplinary rehab care. FUNCTIONAL HISTORY: Prior to recent events, she was independent in self-care tasks and mobility. C urrently, she requires moderate assist for self-care and mobility tasks. I have reviewed the preadmission screen and the patient's current functional status is consistent wi th the preadmission screen. SOCIAL HISTORY: The patient reports living at home with family and hopes to return there upon disch arge. PAST MEDICAL HISTORY: 1. Hypertension. 2. Dyslipidemia. 3. Depression. 4. Chronic obstructive pulmonary disease. 5. Glaucoma. 6. Hypothyroidism. 7. Hemorrhoids. CURRENT MEDICATIONS: 1. Levaquin 750 p.o. q. 48 hours. 2. Ambien p.r.n. 3. Albuterol inhaler. 4. Buspar 5 mg b.i.d. 5. Coreg 6.25 p.o. b.i.d. 6. Cosopt eye drops. 7. Lovenox 40 mg subcutaneous daily. 8. Pepcid 20 mg b.i.d. 9. Lasix 20 mg p.o. daily. 10. Motrin p.r.n. 11. Synthroid 75 mcg p.o. daily. 12. Advair inhaler. 13. Zoloft 100 mg p.o. at bedtime. ALLERGIES: THE PATIENT WITH NO KNOWN DRUG ALLERGIES. PHYSICAL EXAMINATION: VITAL SIGNS: The patient is currently afebrile with stable vital signs. HEENT: Extraocular motion intact. Oropharynx clear. NECK: Supple. LUNGS: Clear anteriorly. CARDIAC: S1, S2. ABDOMEN: Soft, nontender, positive bowel sounds. NEUROLOGIC: She is awake and alert and is able to follow simple 1-step commands. Cranial nerves ap pear grossly intact. She has antigravity strength in bilateral upper extremity and lower extremity. She does have some impaired dynamic balance. PLAN: The patient has been admitted for comprehensive interdisciplinary acute rehab and is anticipa briana to tolerate 3 hours of daily therapy in divided doses for at least 5/7 days a week. The treatme nt plan will include: 1. Physical therapy to focus on bed mobility, transfers, and household ambulation with the goal of having the patient reach a standby assist level. 2. Occupational therapy to focus on hygiene, grooming, dressing, bathing, and toileting activities with the goal of having the patient reach standby assist level. 3. Rehabilitation nursing for carryover of therapeutic interventions, the goal of continent of trina l and bladder, and the goal of patient education with regard to the aforementioned issues. REHABILITATION BARRIER: Weakness. INTERVENTION FOR BARRIER: Interdisciplinary approach. ESTIMATED LENGTH OF STAY: 10 days. DISPOSITION GOAL: Home. I acknowledge that I performed a full physical examination on this patient within 24 hours of admiss ion to the rehabilitation unit and believe the patient is a good candidate for comprehensive interdi sciplinary rehab care and is anticipated to make reasonable goals in a reasonable period of time as outlined above. Dictated By: LAUREN RUCKER/VU Conf#: [id number] DID#: [id number]
[2016-09-09 09:44] LABS: HEMATOCRIT 34.6 % (37.0-47.0); HEMOGLOBIN 11.8 g/dl (12.0-16.0); MEAN CORPUSCULAR HEMOGLOBIN 28.2 pg (29.0-33.0); MEAN CORPUSCULAR HGB CONC 34.1 g/dl (32.0-37.0); MEAN CORPUSCULAR VOLUME 82.8 fl (82.0-101.0); MEAN PLATELET VOLUME 10.2 fl (7.4-10.4); PLATELET COUNT 274 10^3/UL (140-440); RED BLOOD COUNT 4.18 10^6/ul (4.20-5.40); RED CELL DISTRIBUTION WIDTH 14.2 % (11.5-14.5); UNCORRECTED WBC 13.8 10^3/ul (4.8-10.8); WHITE BLOOD COUNT 13.8 10^3/ul (4.8-10.8)
[2016-09-09 09:45] LABS: BASOPHILS % 0.3 % (0.0-2.0); EOSINOPHILS % 0.2 % (0.0-7.0); LYMPHOCYTES # 1.8 10^3/ul (0.8-2.9); LYMPHOCYTES % 13.1 % (15.0-51.0); MONOCYTE # 1.5 10^3/ul (0.3-0.9); MONOCYTES % 10.9 % (0.0-11.0); NEUTROPHIL # 10.1 10^3/ul (1.6-7.5); NEUTROPHILS % 73.1 % (39.0-77.0)
[2016-09-09] MEDS ORDERED: HYDROCORTISONE 25 MG SUPP PR PRN (11:00)
--- NOTE | 2016-09-09 15:30 | HP ---
Date/Time of Note Date/Time of Note DATE: 09/09/16 TIME: 15:25 Assessment/Plan VTE Prophylaxis VTE Prophylaxis Intervention: LMWH Assessment/Plan Problems: (1) Status post laparoscopic appendectomy Status: Acute Comment: She is recuperating from surgery. 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 Please note I would actually advise against use of a noncardioselective beta-gavin given her COPD this will be transitioned over to a cardioselective beta-gavin (5) Hyperlipidemia Status: Chronic Comment: Check labs to verify therapeutic needs (6) Acquired autoimmune hypothyroidism Status: Chronic Comment: We will check her TSH to make sure we have the dosing normal (7) Dysthymia Status: Chronic Comment: Noted continue medications (8) Osteoporosis Status: Chronic Comment: Noted. Regarding her osteoporosis will continue her care HPI/ROS Admit Date/Time Admit Date/Time Sep 08, 2016 at 18:41 Hx of Present Illness 86-year-old female transferred to the rehabilitation center for ongoing care. She presented to the [facility] at the end of August approximately September 03 with acute abdominal pain was found to have appendicitis. She underwent successful appendectomy but had a postoperative course was marked by fluid shifts as well as aggravation of underlying chronic obstructive pulmonary disease status. After successfully being medically stabilized she is brought over to rehab for ongoing rehabilitation prior to return to her home environment. ROS Constitutional: no complaints (Denies fever chills or sweats) Eyes: no complaints ENT: no complaints Respiratory: no complaints (Please note she does have some underlying lung disease and is on current chronic treatment for this) Cardiovascular: no complaints Gastrointestinal: no complaints Genitourinary: no complaints Musculoskeletal: no complaints Skin: no complaints Neurologic: no complaints Endocrine: no complaints (Please note no endocrine review of systems abnormalities) PMH/Family/Social Past Medical History Medical History: high cholesterol, hypertension, other (Chronic obstructive pulmonary disease; osteoporosis please see problem list at the end) Past Surgical History Past Surgical Hx: appendectomy Family History Significant Family History: hypertension Social History Alcohol Use: occasionally Smoking Status: Former smoker Drug Use: none Exam/Review of Systems Vital Signs Vitals Vital Signs Date Time Temp Pulse Resp B/P Pulse Ox O2 Delivery O2 Flow Rate FiO2 09/09/16 08:00 98.5 90 18 124/58 95 Nasal Cannula 2.0 Exam Constitutional: alert, oriented Psych: no complaints Head: atraumatic, normocephalic Eyes: EOMI, nl conjunctiva, nl lids, nl sclera ENMT: mucosa pink and moist, nl lips & teeth, nl nasal mucosa & septum Neck: non-tender (No thyromegaly midline trachea), supple Respiratory: clear to auscultation, other (Increased AP diameter decreased IT ratio) Cardiovascular: nl pulses, regular rate and rhythm Gastrointestinal: nl liver, spleen, non-tender, soft Extremities: normal pulses Labs Result Diagram: 09/09/16 0702 09/09/16 0702 Medications Medications Current Medications Docusate Sodium (Colace) 100 mg BID PO ; Start 09/08/16 at 19:01; Status Future Hold Ondansetron HCl (Zofran Inj) 4 mg Q6H PRN IV NAUSEA AND/OR VOMITING; Start 09/08 at 19:01 Acetaminophen (Tylenol Tab) 650 mg Q6H PRN PO PAIN LEVEL 1-3 OR FEVER; Start at 19:01 Ibuprofen (Motrin) 600 mg Q6H PRN PO PAIN LEVEL 1-3; Start 09/08/16 at 19:01 Enoxaparin Sodium (Lovenox) 40 mg DAILY@07 SC Last administered on 09/09/16 06: 49; Admin Dose 40 MG; Start 09/08/16 at 19:01 Buspirone HCl (Buspar) 5 mg BID PO Last administered on 09/09/16 08:39; Admin Dose 5 MG; Start 09/08/16 at 19:01 Dorzolamide/ Timolol (Cosopt) 1 drop BID LEFT EYE Last administered on 08:38; Admin Dose 1 DROP; Start 09/08/16 at 19:01 Latanoprost (Xalatan) 1 drop DAILY LEFT EYE Last administered on 09/09/16 08:39 ; Admin Dose 1 DROP; Start 09/08/16 at 19:01 Levothyroxine Sodium (Synthroid) 75 mcg DAILY@06 PO Last administered on 06:48; Admin Dose 75 MCG; Start 09/08/16 at 19:01 Lorazepam (Ativan) 0.5 mg HS PRN PO ANXIETY; Start 09/08/16 at 19:01 Salmeterol Xinafoate/ Fluticasone (Advair 250/50 Diskus) 1 inh BID INH Last administered on 09/09/16 08:37; Admin Dose 1 INH; Start 09/08/16 at 19:01 Tiotropium [place] (Spiriva) 1 inh DAILY INH Last administered on 09/09/16 08: 38; Admin Dose 1 INH; Start 09/08/16 at 19:01 Hydralazine HCl (Apresoline) 10 mg Q6H PRN IV SBP >170; Start 09/08/16 at 19:01 Clonidine (Catapres) 0.1 mg BID PO Last administered on 09/09/16 08:40; Admin Dose 0.1 MG; Start 09/08/16 at 19:01 Senna (Senokot) 1 tab BID PO ; Start 09/08/16 at 19:01; Status Future Hold Polyethylene Glycol (Miralax) 17 gm DAILY GTB ; Start 09/08/16 at 19:01; Status Future Hold Sertraline HCl (Zoloft) 100 mg HS PO Last administered on 09/08/16 21:21; Admin Dose 100 MG; Start 09/08/16 at 19:01 Furosemide (Lasix) 20 mg DAILY@06 PO Last administered on 09/09/16 06:48; Admin Dose 20 MG; Start 09/09/16 at 06:00 Levofloxacin (Levaquin) 750 mg Q48H PO Last administered on 09/08/16 21:21; Admin Dose 750 MG; Start 09/08/16 at 21:00; Stop 09/14/16 at 23:59 Loperamide HCl (Imodium Cap) 2 mg Q6H PRN PO DIARRHEA Last administered on 21:22; Admin Dose 2 MG; Start 09/08/16 at 19:30 Zolpidem Tartrate (Ambien) 10 mg HS PRN PO INSOMNIA Last administered on 21:20; Admin Dose 10 MG; Start 09/08/16 at 21:00 Hydrocortisone (Anusol-Hc Supp) 25 mg DAILY PRN [place] HEMORROID PAIN/ITCHING Last administered on 09/09/16 14:59; Admin Dose 25 MG; Start 09/09/16 at 11:00 Metoprolol Succinate (Toprol Xl) 50 mg BID PO ; Start 09/09/16 at 21:00; Status UNV Famotidine (Pepcid) 20 mg BID PO ; Start 09/09/16 at 21:00; Stop 10/03/16 at 20: 59; Status UNV LIGIA WEAVER MD Sep 09, 2016 15:29
--- NOTE | 2016-09-09 15:47 | CONS ---
Date/Time of Note Date/Time of Note DATE: 09/09/16 TIME: 15:46 Assessment/Plan Assessment/Plan Chief Complaint/Hosp Course Acute decompensated diastolic congestive heart failure. Acute appendicitis status post surgery Postoperative hypotension, resolved Preserved ejection fraction Hypertension Problems: Additional Assessment/Plan continue lasix 20 fluid status much improved Consultation Date/Type/Reason Admit Date/Time Sep 08, 2016 at 18:41 Initial Consult Date Type of Consultation: cv 24 HR Interval Summary Free Text/Dictation no sob, no chest pain, is frail Detailed Summary Respiratory: no complaints Cardiovascular: no complaints Gastrointestinal: no complaints Musculoskeletal: no complaints Skin: no complaints Exam/Review of Systems Vital Signs Vitals Vital Signs Date Time Temp Pulse Resp B/P Pulse Ox O2 Delivery O2 Flow Rate FiO2 09/09/16 08:00 98.5 90 18 124/58 95 Nasal Cannula 2.0 Exam Constitutional: alert, frail, oriented Head: atraumatic, normocephalic Neck: supple Respiratory: clear to auscultation Cardiovascular: regular rate and rhythm Gastrointestinal: soft Musculoskeletal: nl extremities to inspection Results Result Diagram: 09/09/16 0702 09/09/16 0702 Results 24 hrs Laboratory Tests Test 09/08/16 22:30 09/09/16 07:02 Urine Bacteria FEW Urine Bilirubin 1+ H Urine Clarity HAZY Urine Color YELLOW Urine Glucose NEGATIVE Urine Hemoglobin 3+ H Urine Ictotest NEGATIVE Urine Ketones 15 Urine Leukocyte Esterase TRACE H Urine Microscopic RBC >50 Urine Microscopic WBC 2-5 Urine Nitrite NEGATIVE Urine Specific [place] 1.020 Urine Squamous Epithelial Cells OCCASIONAL Urine Total Protein TRACE Urine Urobilinogen 0.2 E.U./dL Urine pH 5.5 Alanine Aminotransferase (ALT/SGPT) 33 Albumin 2.9 L Albumin/Globulin Ratio 0.90 Alkaline Phosphatase 81 Anion Gap 16 Aspartate Amino Transf (AST/SGOT) 44 Basophils # 0.0 Basophils % 0.3 Blood Urea Nitrogen 27 H Calcium Level 8.4 Carbon Dioxide Level 27 Chloride Level 97 Creatinine 0.90 Direct Bilirubin 0.00 Eosinophils # 0.0 Eosinophils % 0.2 Globulin 3.20 Glucose Level 83 # Hematocrit 34.6 L Hemoglobin 11.8 L Indirect Bilirubin 0.2 Lymphocytes # 1.8 Lymphocytes % 13.1 L Mean Corpuscular Hemoglobin 28.2 L Mean Corpuscular Hemoglobin Concent 34.1 Mean Corpuscular Volume 82.8 Mean Platelet Volume 10.2 # Monocytes # 1.5 H Monocytes % 10.9 Neutrophils # 10.1 H Neutrophils % 73.1 Nucleated Red Blood Cells # 0.0 Nucleated Red Blood Cells % 0.0 Platelet Count 274 Potassium Level 3.2 L Red Blood Count 4.18 L Red Cell Distribution Width 14.2 Sodium Level 137 Total Bilirubin 0.2 Total Protein 6.1 White Blood Count 13.8 H Medications Medications Current Medications Docusate Sodium (Colace) 100 mg BID PO ; Start 09/08/16 at 19:01; Status Future Hold Ondansetron HCl (Zofran Inj) 4 mg Q6H PRN IV NAUSEA AND/OR VOMITING; Start 09/08 at 19:01 Acetaminophen (Tylenol Tab) 650 mg Q6H PRN PO PAIN LEVEL 1-3 OR FEVER; Start at 19:01 Ibuprofen (Motrin) 600 mg Q6H PRN PO PAIN LEVEL 1-3; Start 09/08/16 at 19:01 Enoxaparin Sodium (Lovenox) 40 mg DAILY@07 SC Last administered on 09/09/16 06: 49; Admin Dose 40 MG; Start 09/08/16 at 19:01 Buspirone HCl (Buspar) 5 mg BID PO Last administered on 09/09/16 08:39; Admin Dose 5 MG; Start 09/08/16 at 19:01 Dorzolamide/ Timolol (Cosopt) 1 drop BID LEFT EYE Last administered on 08:38; Admin Dose 1 DROP; Start 09/08/16 at 19:01 Latanoprost (Xalatan) 1 drop DAILY LEFT EYE Last administered on 09/09/16 08:39 ; Admin Dose 1 DROP; Start 09/08/16 at 19:01 Levothyroxine Sodium (Synthroid) 75 mcg DAILY@06 PO Last administered on 06:48; Admin Dose 75 MCG; Start 09/08/16 at 19:01 Lorazepam (Ativan) 0.5 mg HS PRN PO ANXIETY; Start 09/08/16 at 19:01 Salmeterol Xinafoate/ Fluticasone (Advair 250/50 Diskus) 1 inh BID INH Last administered on 09/09/16 08:37; Admin Dose 1 INH; Start 09/08/16 at 19:01 Tiotropium [place] (Spiriva) 1 inh DAILY INH Last administered on 09/09/16 08: 38; Admin Dose 1 INH; Start 09/08/16 at 19:01 Hydralazine HCl (Apresoline) 10 mg Q6H PRN IV SBP >170; Start 09/08/16 at 19:01 Clonidine (Catapres) 0.1 mg BID PO Last administered on 09/09/16 08:40; Admin Dose 0.1 MG; Start 09/08/16 at 19:01 Senna (Senokot) 1 tab BID PO ; Start 09/08/16 at 19:01; Status Future Hold Polyethylene Glycol (Miralax) 17 gm DAILY GTB ; Start 09/08/16 at 19:01; Status Future Hold Sertraline HCl (Zoloft) 100 mg HS PO Last administered on 09/08/16 21:21; Admin Dose 100 MG; Start 09/08/16 at 19:01 Furosemide (Lasix) 20 mg DAILY@06 PO Last administered on 09/09/16 06:48; Admin Dose 20 MG; Start 09/09/16 at 06:00 Levofloxacin (Levaquin) 750 mg Q48H PO Last administered on 09/08/16 21:21; Admin Dose 750 MG; Start 09/08/16 at 21:00; Stop 09/14/16 at 23:59 Loperamide HCl (Imodium Cap) 2 mg Q6H PRN PO DIARRHEA Last administered on 21:22; Admin Dose 2 MG; Start 09/08/16 at 19:30 Zolpidem Tartrate (Ambien) 10 mg HS PRN PO INSOMNIA Last administered on 21:20; Admin Dose 10 MG; Start 09/08/16 at 21:00 Hydrocortisone (Anusol-Hc Supp) 25 mg DAILY PRN [place] HEMORROID PAIN/ITCHING Last administered on 09/09/16 14:59; Admin Dose 25 MG; Start 09/09/16 at 11:00 Metoprolol Succinate (Toprol Xl) 50 mg BID PO ; Start 09/09/16 at 21:00 Famotidine (Pepcid) 20 mg BID PO ; Start 09/09/16 at 21:00; Stop 10/03/16 at 20: 59 TAO KERN MD Sep 09, 2016 15:47
[2016-09-09 19:54] VITALS: BP 109/58; PULSE 79; RESP 16
[2016-09-09] MEDS: METOPROLOL (XL) 50 MG TAB PO SCH (20:51)
[2016-09-09] MEDS: FAMOTIDINE 20 MG TAB PO SCH (20:51)
[2016-09-09] MEDS: SERTRALINE 100 MG TAB PO SCH (20:52)
[2016-09-09] MEDS: ZOLPIDEM 5 MG TAB PO PRN (20:55)
[2016-09-09] MEDS: HYDROCODONE/APAP (5/325) TAB PO PRN (22:28)
[2016-09-10 06:15] VITALS: BP 143/71; PULSE 77
[2016-09-10] MEDS: FUROSEMIDE 40 MG TAB PO SCH (06:19)
[2016-09-10] MEDS: LEVOTHYROXINE 75 MCG TAB PO SCH (06:19)
[2016-09-10] MEDS: ENOXAPARIN 40 MG/0.4 ML SYG SC SCH (06:36)
[2016-09-10 07:43] LABS: CK-MB 2.09 ng/ml (0.0-2.4)
[2016-09-10 07:47] LABS: TROPONIN-I 0.045 ng/ml (0.00-0.12)
[2016-09-10 07:51] LABS: CREATINE KINASE 175 IU/L (23-200)
[2016-09-10 08:00] VITALS: BP 155/68; PULSE 74; RESP 18
[2016-09-10] MEDS: HYDROCODONE/APAP (5/325) TAB PO PRN ×2 (09:22→22:07)
[2016-09-10] MEDS: METOPROLOL (XL) 50 MG TAB PO SCH ×2 (09:22→20:37)
[2016-09-10] MEDS: FAMOTIDINE 20 MG TAB PO SCH ×2 (09:22→20:35)
[2016-09-10] MEDS: BUSPIRONE 5 MG TAB PO SCH ×2 (09:22→20:36)
[2016-09-10] MEDS: LATANOPROST 0.005% 2.5 ML OPH LEFT EYE SCH (09:23)
[2016-09-10] MEDS: SALMETEROL/FLUTICASONE 250/50 INHA INH SCH ×2 (09:23→20:35)
[2016-09-10] MEDS: TIOTROPIUM 18 MCG CAPSULE INHA DEV INH SCH (09:23)
[2016-09-10] MEDS: DORZOLAMIDE/TIMOLOL 10 ML OPH LEFT EYE SCH ×2 (09:23→20:35)
[2016-09-10] MEDS ORDERED: MAGNESIUM CITRATE 300 ML BTL PO ONE (13:30)
[2016-09-10] MEDS ORDERED: NA PHOSPHATE/BIPHOS 133 ML ENEMA PR ONE (13:30)
--- NOTE | 2016-09-10 13:34 | PN ---
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 Comment: This has recurred and I will treat this using 2 day course of valacyclovir (3) COPD (chronic obstructive pulmonary disease) Status: Chronic Comment: Stable on medicine Qualifiers: COPD type: emphysema Emphysema type: unspecified Qualified Code: J43.9 - Pulmonary emphysema, unspecified emphysema type (4) Essential hypertension Status: Chronic Comment: Adequately controlled (5) Hyperlipidemia Status: Chronic Comment: Noted Qualifiers: Hyperlipidemia type: pure hypercholesterolemia Qualified Code: E78.00 - Pure hypercholesterolemia (6) Acquired autoimmune hypothyroidism Status: Chronic Comment: Stable on medicine Subjective 24 Hr Interval Summary Free Text/Dictation Patient reports that she has been having a sensation of 10 knees months. Also upper lip is swollen in the last 12 hours. Constitutional: no complaints (No fever chills or sweats) Respiratory: no complaints Cardiovascular: no complaints Gastrointestinal: constipation Genitourinary: no complaints Exam/Review of Systems Vital Signs Vitals Vital Signs Date Time Temp Pulse Resp B/P Pulse Ox O2 Delivery O2 Flow Rate FiO2 09/10/16 08:00 98.1 74 18 155/68 94 Nasal Cannula 2.0 Intake and Output 09/09/16 09/09/16 09/10/16 15:00 23:00 07:00 Intake Total 920 ml 400 ml Output Total 550 ml 450 ml Balance -550 ml 470 ml 400 ml Exam Constitutional: alert, oriented ENMT: nl external ears & nose, other (Oral cold sore at the lip with marked swelling.) Neck: non-tender, supple Respiratory: clear to auscultation, normal air movement Cardiovascular: nl pulses, regular rate and rhythm Gastrointestinal: nl liver, spleen, non-tender, other (Declines rectal exam), soft Results Result Diagram: 09/09/16 0702 09/09/16 0702 Results 24 hrs Laboratory Tests Test 09/09/16 16:00 09/10/16 06:40 Hepatitis B Surface Antigen NEGATIVE Hepatitis C Antibody NEGATIVE Creatine Kinase 175 Creatine Kinase Index 1.2 Creatinine Kinase MB (Mass) 2.09 Thyroid Stimulating Hormone (TSH) 8.960 H Troponin I 0.045 Vitamin B12 Level > 1000 H Medications Medications Current Medications Docusate Sodium (Colace) 100 mg BID PO ; Start 09/08/16 at 19:01; Status Future Hold Ondansetron HCl (Zofran Inj) 4 mg Q6H PRN IV NAUSEA AND/OR VOMITING; Start 09/08 at 19:01 Acetaminophen (Tylenol Tab) 650 mg Q6H PRN PO PAIN LEVEL 1-3 OR FEVER; Start at 19:01 Ibuprofen (Motrin) 600 mg Q6H PRN PO PAIN LEVEL 1-3; Start 09/08/16 at 19:01 Enoxaparin Sodium (Lovenox) 40 mg DAILY@07 SC Last administered on 09/10/16 06: 36; Admin Dose 40 MG; Start 09/08/16 at 19:01 Buspirone HCl (Buspar) 5 mg BID PO Last administered on 09/10/16 09:22; Admin Dose 5 MG; Start 09/08/16 at 19:01 Dorzolamide/ Timolol (Cosopt) 1 drop BID LEFT EYE Last administered on 09:23; Admin Dose 1 DROP; Start 09/08/16 at 19:01 Latanoprost (Xalatan) 1 drop DAILY LEFT EYE Last administered on 09/10/16 09:23 ; Admin Dose 1 DROP; Start 09/08/16 at 19:01 Levothyroxine Sodium (Synthroid) 75 mcg DAILY@06 PO Last administered on 06:19; Admin Dose 75 MCG; Start 09/08/16 at 19:01 Lorazepam (Ativan) 0.5 mg HS PRN PO ANXIETY; Start 09/08/16 at 19:01 Salmeterol Xinafoate/ Fluticasone (Advair 250/50 Diskus) 1 inh BID INH Last administered on 09/10/16 09:23; Admin Dose 1 INH; Start 09/08/16 at 19:01 Tiotropium [place] (Spiriva) 1 inh DAILY INH Last administered on 09/10/16 09: 23; Admin Dose 1 INH; Start 09/08/16 at 19:01 Hydralazine HCl (Apresoline) 10 mg Q6H PRN IV SBP >170; Start 09/08/16 at 19:01 Clonidine (Catapres) 0.1 mg BID PO Last administered on 09/10/16 09:22; Admin Dose 0.1 MG; Start 09/08/16 at 19:01 Senna (Senokot) 1 tab BID PO ; Start 09/08/16 at 19:01; Status Future Hold Polyethylene Glycol (Miralax) 17 gm DAILY GTB ; Start 09/08/16 at 19:01; Status Future Hold Sertraline HCl (Zoloft) 100 mg HS PO Last administered on 09/09/16 20:52; Admin Dose 100 MG; Start 09/08/16 at 19:01 Furosemide (Lasix) 20 mg DAILY@06 PO Last administered on 09/10/16 06:19; Admin Dose 20 MG; Start 09/09/16 at 06:00 Levofloxacin (Levaquin) 750 mg Q48H PO Last administered on 09/08/16 21:21; Admin Dose 750 MG; Start 09/08/16 at 21:00; Stop 09/14/16 at 23:59 Loperamide HCl (Imodium Cap) 2 mg Q6H PRN PO DIARRHEA Last administered on 21:22; Admin Dose 2 MG; Start 09/08/16 at 19:30 Zolpidem Tartrate (Ambien) 10 mg HS PRN PO INSOMNIA Last administered on 20:55; Admin Dose 10 MG; Start 09/08/16 at 21:00 Hydrocortisone (Anusol-Hc Supp) 25 mg DAILY PRN [place] HEMORROID PAIN/ITCHING Last administered on 09/09/16 14:59; Admin Dose 25 MG; Start 09/09/16 at 11:00 Metoprolol Succinate (Toprol Xl) 50 mg BID PO Last administered on 09/10/16 09: 22; Admin Dose 50 MG; Start 09/09/16 at 21:00 Famotidine (Pepcid) 20 mg BID PO Last administered on 09/10/16 09:22; Admin Dose 20 MG; Start 09/09/16 at 21:00; Stop 10/03/16 at 20:59 Acetaminophen/ Hydrocodone Bitart ([place] (5/325)) 1 tab Q6H PRN PO PAIN Last administered on 09/10/16t 09:22; Admin Dose 1 TAB; Start 09/09/16 at 22:00 LIGIA WEAVER MD Sep 10, 2016 13:34
[2016-09-10] MEDS: VALACYCLOVIR 500 MG TAB PO SCH ×2 (14:45→20:36)
[2016-09-10 20:00] VITALS: BP 138/71; RESP 22
[2016-09-10] MEDS: LEVOFLOXACIN 750 MG TABLET PO SCH (20:36)
[2016-09-10] MEDS: SERTRALINE 100 MG TAB PO SCH (20:36)
[2016-09-10] MEDS: ZOLPIDEM 5 MG TAB PO PRN (22:06)
[2016-09-11] MEDS: FUROSEMIDE 40 MG TAB PO SCH (06:00)
[2016-09-11] MEDS: LEVOTHYROXINE 88 MCG TAB PO SCH (06:26)
[2016-09-11] MEDS: ENOXAPARIN 40 MG/0.4 ML SYG SC SCH (06:30)
[2016-09-11 07:30] VITALS: BP 108/54; RESP 20
[2016-09-11] MEDS: METOPROLOL (XL) 50 MG TAB PO SCH ×2 (09:00→20:31)
[2016-09-11] MEDS: SALMETEROL/FLUTICASONE 250/50 INHA INH SCH ×2 (09:33→20:32)
[2016-09-11] MEDS: LATANOPROST 0.005% 2.5 ML OPH LEFT EYE SCH (09:33)
[2016-09-11] MEDS: DORZOLAMIDE/TIMOLOL 10 ML OPH LEFT EYE SCH ×2 (09:33→20:32)
[2016-09-11] MEDS: FAMOTIDINE 20 MG TAB PO SCH ×2 (09:34→20:31)
[2016-09-11] MEDS: TIOTROPIUM 18 MCG CAPSULE INHA DEV INH SCH (09:34)
[2016-09-11] MEDS: BUSPIRONE 5 MG TAB PO SCH ×2 (09:34→20:30)
[2016-09-11] MEDS: VALACYCLOVIR 500 MG TAB PO SCH ×2 (09:38→20:30)
--- NOTE | 2016-09-11 13:13 | CONS ---
Date/Time of Note Date/Time of Note DATE: 09/11/16 TIME: 13:11 Consult Date/Type/Reason Admit Date/Time Sep 08, 2016 at 18:41 Initial Consult Date Type of Consultation: cv Subjective Complains of mouth sores Objective Vital Signs Date Time Temp Pulse Resp B/P Pulse Ox O2 Delivery O2 Flow Rate FiO2 09/11/16 07:30 97.9 72 20 108/54 92 09/10/16 08:00 Nasal Cannula 2.0 Intake and Output 09/10/16 09/10/16 09/11/16 15:00 23:00 07:00 Intake Total 500 ml 400 ml Output Total 450 ml Balance 50 ml 400 ml INTERDISCIPLINARY TEAM CONFERENCE BOWEL- Cont BLADDER-Cont SKIN- intact OT- DRESSING-min BATHING-min TOILETING-min PT- BED MOBILITY-min TRANSFERS-mod AMBULATION-mod 50 feet DYPHAGIA A/P- Interdisciplinary team conference held today. Please see interdisciplinary sheet. Working toward d.c. on 09/19 with post discharge follow up of physical therapy, occupational therapy. Results/Medications Result Diagram: 09/09/16 0709/09/16 0702 Medications Current Medications Docusate Sodium (Colace) 100 mg BID PO ; Start 09/08/16 at 19:01; Status Future Hold Ondansetron HCl (Zofran Inj) 4 mg Q6H PRN IV NAUSEA AND/OR VOMITING; Start 09/08 at 19:01 Acetaminophen (Tylenol Tab) 650 mg Q6H PRN PO PAIN LEVEL 1-3 OR FEVER; Start at 19:01 Ibuprofen (Motrin) 600 mg Q6H PRN PO PAIN LEVEL 1-3; Start 09/08/16 at 19:01 Enoxaparin Sodium (Lovenox) 40 mg DAILY@07 SC Last administered on 09/11/16 06: 30; Admin Dose 40 MG; Start 09/08/16 at 19:01 Buspirone HCl (Buspar) 5 mg BID PO Last administered on 09/11/16 09:34; Admin Dose 5 MG; Start 09/08/16 at 19:01 Dorzolamide/ Timolol (Cosopt) 1 drop BID LEFT EYE Last administered on 09:33; Admin Dose 1 DROP; Start 09/08/16 at 19:01 Latanoprost (Xalatan) 1 drop DAILY LEFT EYE Last administered on 09/11/16 09:33 ; Admin Dose 1 DROP; Start 09/08/16 at 19:01 Lorazepam (Ativan) 0.5 mg HS PRN PO ANXIETY; Start 09/08/16 at 19:01 Salmeterol Xinafoate/ Fluticasone (Advair 250/50 Diskus) 1 inh BID INH Last administered on 09/11/16 09:33; Admin Dose 1 INH; Start 09/08/16 at 19:01 Tiotropium [place] (Spiriva) 1 inh DAILY INH Last administered on 09/11/16 09: 34; Admin Dose 1 INH; Start 09/08/16 at 19:01 Hydralazine HCl (Apresoline) 10 mg Q6H PRN IV SBP >170; Start 09/08/16 at 19:01 Clonidine (Catapres) 0.1 mg BID PO Last administered on 09/10/16 20:37; Admin Dose 0.1 MG; Start 09/08/16 at 19:01 Senna (Senokot) 1 tab BID PO ; Start 09/08/16 at 19:01; Status Future Hold Polyethylene Glycol (Miralax) 17 gm DAILY GTB ; Start 09/08/16 at 19:01; Status Future Hold Sertraline HCl (Zoloft) 100 mg HS PO Last administered on 09/10/16 20:36; Admin Dose 100 MG; Start 09/08/16 at 19:01 Furosemide (Lasix) 20 mg DAILY@06 PO Last administered on 09/10/16 06:19; Admin Dose 20 MG; Start 09/09/16 at 06:00 Levofloxacin (Levaquin) 750 mg Q48H PO Last administered on 09/10/16 20:36; Admin Dose 750 MG; Start 09/08/16 at 21:00; Stop 09/14/16 at 23:59 Loperamide HCl (Imodium Cap) 2 mg Q6H PRN PO DIARRHEA Last administered on 21:22; Admin Dose 2 MG; Start 09/08/16 at 19:30 Zolpidem Tartrate (Ambien) 10 mg HS PRN PO INSOMNIA Last administered on 22:06; Admin Dose 10 MG; Start 09/08/16 at 21:00 Hydrocortisone (Anusol-Hc Supp) 25 mg DAILY PRN [place] HEMORROID PAIN/ITCHING Last administered on 09/09/16 14:59; Admin Dose 25 MG; Start 09/09/16 at 11:00 Metoprolol Succinate (Toprol Xl) 50 mg BID PO Last administered on 09/10/16 20: 37; Admin Dose 50 MG; Start 09/09/16 at 21:00 Famotidine (Pepcid) 20 mg BID PO Last administered on 09/11/16 09:34; Admin Dose 20 MG; Start 09/09/16 at 21:00; Stop 10/03/16 at 20:59 Acetaminophen/ Hydrocodone Bitart ([place] (5/325)) 1 tab Q6H PRN PO PAIN Last administered on 09/10/16 22:07; Admin Dose 1 TAB; Start 09/09/16 at 22:00 Valacyclovir HCl (Valtrex) 2,000 mg BID PO Last administered on 09/11/16 09:38 ; Admin Dose 2,000 MG; Start 09/10/16 at 13:30; Stop 09/12/16 at 13:29 Levothyroxine Sodium (Synthroid) 88 mcg DAILY@06 PO Last administered on 06:26; Admin Dose 88 MCG; Start 09/11/16 at 06:00 LAUREN MCLAUGHLIN MD Sep 11, 2016 13:13
[2016-09-11] MEDS: HYDROCODONE/APAP (5/325) TAB PO PRN ×2 (13:20→22:09)
--- NOTE | 2016-09-11 16:24 | PN ---
Date/Time of Note Date/Time of Note DATE: 09/11/16 TIME: 16:18 Assessment/Plan VTE Prophylaxis VTE Prophylaxis Intervention: SCD's Assessment/Plan Chief Complaint/Hosp Course Assessment/Plan 1. Constipation Likely drug-induced, continue Colace and senna 2. 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 COPD (chronic obstructive pulmonary disease) Continue breathing treatment, oxygen as needed 4. Essential hypertension Well-controlled on medical management 5. Hyperlipidemia Continue statin 6. Acquired autoimmune hypothyroidism Continue levothyroxine We will continue monitor patient closely for recommendation management treatment as clinical course Problems: Subjective 24 Hr Interval Summary Free Text/Dictation No acute changes Patient is able to ambulate with moderate assist 50 feet Tolerating oral intake Exam/Review of Systems Vital Signs Vitals Vital Signs Date Time Temp Pulse Resp B/P Pulse Ox O2 Delivery O2 Flow Rate FiO2 09/11/16 07:30 97.9 72 20 108/54 92 09/10/16 08:00 Nasal Cannula 2.0 Intake and Output 09/10/16 09/10/16 09/11/16 14:59 22:59 06:59 Intake Total 500 ml 400 ml Output Total 450 ml Balance 50 ml 400 ml Exam General: The patient is well-developed, Not in acute distress. HEENT: Atraumatic, normocephalic. The pupils are equal and round . Neck: Supple with full range of motion. Chest: Normal expansion of the thorax during inspiration Lungs: Clear to auscultation bilaterally Heart: Normal S1-S2, Regular rhythm and rate. Abdomen: Soft , nontender, nondistended , bowel sounds are present. Surgical site is dry and clean Extremities: Normal to inspection, no edema no cyanosis Neurologic: Normal mental status,The patient is awake, alert and oriented . Results Result Diagram: 09/09/16 0702 09/09/16 0702 Medications Medications Current Medications Docusate Sodium (Colace) 100 mg BID PO ; Start 09/08/16 at 19:01; Status Future Hold Ondansetron HCl (Zofran Inj) 4 mg Q6H PRN IV NAUSEA AND/OR VOMITING; Start 09/08 at 19:01 Acetaminophen (Tylenol Tab) 650 mg Q6H PRN PO PAIN LEVEL 1-3 OR FEVER; Start at 19:01 Ibuprofen (Motrin) 600 mg Q6H PRN PO PAIN LEVEL 1-3; Start 09/08/16 at 19:01 Enoxaparin Sodium (Lovenox) 40 mg DAILY@07 SC Last administered on 09/11/16 06: 30; Admin Dose 40 MG; Start 09/08/16 at 19:01 Buspirone HCl (Buspar) 5 mg BID PO Last administered on 09/11/16 09:34; Admin Dose 5 MG; Start 09/08/16 at 19:01 Dorzolamide/ Timolol (Cosopt) 1 drop BID LEFT EYE Last administered on 09:33; Admin Dose 1 DROP; Start 09/08/16 at 19:01 Latanoprost (Xalatan) 1 drop DAILY LEFT EYE Last administered on 09/11/16 09:33 ; Admin Dose 1 DROP; Start 09/08/16 at 19:01 Lorazepam (Ativan) 0.5 mg HS PRN PO ANXIETY; Start 09/08/16 at 19:01 Salmeterol Xinafoate/ Fluticasone (Advair 250/50 Diskus) 1 inh BID INH Last administered on 09/11/16 09:33; Admin Dose 1 INH; Start 09/08/16 at 19:01 Tiotropium [place] (Spiriva) 1 inh DAILY INH Last administered on 09/11/16 09: 34; Admin Dose 1 INH; Start 09/08/16 at 19:01 Hydralazine HCl (Apresoline) 10 mg Q6H PRN IV SBP >170; Start 09/08/16 at 19:01 Clonidine (Catapres) 0.1 mg BID PO Last administered on 09/10/16 20:37; Admin Dose 0.1 MG; Start 09/08/16 at 19:01 Senna (Senokot) 1 tab BID PO ; Start 09/08/16 at 19:01; Status Future Hold Polyethylene Glycol (Miralax) 17 gm DAILY GTB ; Start 09/08/16 at 19:01; Status Future Hold Sertraline HCl (Zoloft) 100 mg HS PO Last administered on 09/10/16 20:36; Admin Dose 100 MG; Start 09/08/16 at 19:01 Furosemide (Lasix) 20 mg DAILY@06 PO Last administered on 09/10/16 06:19; Admin Dose 20 MG; Start 09/09/16 at 06:00 Levofloxacin (Levaquin) 750 mg Q48H PO Last administered on 09/10/16 20:36; Admin Dose 750 MG; Start 09/08/16 at 21:00; Stop 09/14/16 at 23:59 Loperamide HCl (Imodium Cap) 2 mg Q6H PRN PO DIARRHEA Last administered on 21:22; Admin Dose 2 MG; Start 09/08/16 at 19:30 Zolpidem Tartrate (Ambien) 10 mg HS PRN PO INSOMNIA Last administered on 22:06; Admin Dose 10 MG; Start 09/08/16 at 21:00 Hydrocortisone (Anusol-Hc Supp) 25 mg DAILY PRN [place] HEMORROID PAIN/ITCHING Last administered on 09/09/16 14:59; Admin Dose 25 MG; Start 09/09/16 at 11:00 Metoprolol Succinate (Toprol Xl) 50 mg BID PO Last administered on 09/10/16 20: 37; Admin Dose 50 MG; Start 09/09/16 at 21:00 Famotidine (Pepcid) 20 mg BID PO Last administered on 09/11/16 09:34; Admin Dose 20 MG; Start 09/09/16 at 21:00; Stop 10/03/16 at 20:59 Acetaminophen/ Hydrocodone Bitart ([place] (5/325)) 1 tab Q6H PRN PO PAIN Last administered on 09/11/16 13:20; Admin Dose 1 TAB; Start 09/09/16 at 22:00 Valacyclovir HCl (Valtrex) 2,000 mg BID PO Last administered on 09/11/16 09:38 ; Admin Dose 2,000 MG; Start 09/10/16 at 13:30; Stop 09/12/16 at 13:29 Levothyroxine Sodium (Synthroid) 88 mcg DAILY@06 PO Last administered on 06:26; Admin Dose 88 MCG; Start 09/11/16 at 06:00 YAMILE LARA MD Sep 11, 2016 16:24
[2016-09-11 19:30] VITALS: BP 108/57; PULSE 70; RESP 20
[2016-09-11] MEDS: SERTRALINE 100 MG TAB PO SCH (20:31)
[2016-09-11 20:49] VITALS: BP 117/54; RESP 20
[2016-09-11] MEDS: ZOLPIDEM 5 MG TAB PO PRN (22:09)
--- NOTE | 2016-09-11 22:45 | CONS ---
Date/Time of Note Date/Time of Note DATE: 09/11/16 TIME: 22:40 Assessment/Plan Assessment/Plan Additional Assessment/Plan Acute decompensated diastolic congestive heart failure, resolving Acute appendicitis status post surgery Preserved ejection fraction Hypertension -Blood pressure trend on the lower end, would decrease clonidine, continue maintenance diuretics as blood pressure and renal function permits. Consultation Date/Type/Reason Admit Date/Time Sep 08, 2016 at 18:41 Initial Consult Date Type of Consultation: cv 24 HR Interval Summary Free Text/Dictation Feeling better, currently denies shortness of breath, cough Exam/Review of Systems Vital Signs Vitals Vital Signs Date Time Temp Pulse Resp B/P Pulse Ox O2 Delivery O2 Flow Rate FiO2 09/11/16 20:49 98.4 88 20 117/54 91 09/10/16 08:00 Nasal Cannula 2.0 Intake and Output 09/10/16 09/10/16 09/11/16 15:00 23:00 07:00 Intake Total 500 ml 400 ml Output Total 450 ml Balance 50 ml 400 ml Exam Undergoing physical therapy, no apparent distress Constitutional: alert, oriented Head: normocephalic Neck: supple Respiratory: other (course breath sounds bilaterally, no wheezing) Cardiovascular: other (S1 and S2 heard), regular rate and rhythm Gastrointestinal: bowel sounds, non-tender, soft Extremities: other (no edema) Results Result Diagram: 09/09/16 0702 09/09/16 0702 Medications Medications Current Medications Docusate Sodium (Colace) 100 mg BID PO ; Start 09/08/16 at 19:01; Status Future Hold Ondansetron HCl (Zofran Inj) 4 mg Q6H PRN IV NAUSEA AND/OR VOMITING; Start 09/08 at 19:01 Acetaminophen (Tylenol Tab) 650 mg Q6H PRN PO PAIN LEVEL 1-3 OR FEVER; Start at 19:01 Ibuprofen (Motrin) 600 mg Q6H PRN PO PAIN LEVEL 1-3; Start 09/08/16 at 19:01 Enoxaparin Sodium (Lovenox) 40 mg DAILY@07 SC Last administered on 09/11/16 06: 30; Admin Dose 40 MG; Start 09/08/16 at 19:01 Buspirone HCl (Buspar) 5 mg BID PO Last administered on 09/11/16 20:30; Admin Dose 5 MG; Start 09/08/16 at 19:01 Dorzolamide/ Timolol (Cosopt) 1 drop BID LEFT EYE Last administered on 20:32; Admin Dose 1 DROP; Start 09/08/16 at 19:01 Latanoprost (Xalatan) 1 drop DAILY LEFT EYE Last administered on 09/11/16 09:33 ; Admin Dose 1 DROP; Start 09/08/16 at 19:01 Lorazepam (Ativan) 0.5 mg HS PRN PO ANXIETY; Start 09/08/16 at 19:01 Salmeterol Xinafoate/ Fluticasone (Advair 250/50 Diskus) 1 inh BID INH Last administered on 09/11/16 20:32; Admin Dose 1 INH; Start 09/08/16 at 19:01 Tiotropium [place] (Spiriva) 1 inh DAILY INH Last administered on 09/11/16 09: 34; Admin Dose 1 INH; Start 09/08/16 at 19:01 Hydralazine HCl (Apresoline) 10 mg Q6H PRN IV SBP >170; Start 09/08/16 at 19:01 Clonidine (Catapres) 0.1 mg BID PO Last administered on 09/11/16 20:32; Admin Dose 0.1 MG; Start 09/08/16 at 19:01 Senna (Senokot) 1 tab BID PO ; Start 09/08/16 at 19:01; Status Future Hold Polyethylene Glycol (Miralax) 17 gm DAILY GTB ; Start 09/08/16 at 19:01; Status Future Hold Sertraline HCl (Zoloft) 100 mg HS PO Last administered on 09/11/16 20:31; Admin Dose 100 MG; Start 09/08/16 at 19:01 Furosemide (Lasix) 20 mg DAILY@06 PO Last administered on 09/10/16 06:19; Admin Dose 20 MG; Start 09/09/16 at 06:00 Levofloxacin (Levaquin) 750 mg Q48H PO Last administered on 09/10/16 20:36; Admin Dose 750 MG; Start 09/08/16 at 21:00; Stop 09/14/16 at 23:59 Loperamide HCl (Imodium Cap) 2 mg Q6H PRN PO DIARRHEA Last administered on 21:22; Admin Dose 2 MG; Start 09/08/16 at 19:30 Zolpidem Tartrate (Ambien) 10 mg HS PRN PO INSOMNIA Last administered on 22:09; Admin Dose 10 MG; Start 09/08/16 at 21:00 Hydrocortisone (Anusol-Hc Supp) 25 mg DAILY PRN [place] HEMORROID PAIN/ITCHING Last administered on 09/09/16 14:59; Admin Dose 25 MG; Start 09/09/16 at 11:00 Metoprolol Succinate (Toprol Xl) 50 mg BID PO Last administered on 09/11/16 20: 31; Admin Dose 50 MG; Start 09/09/16 at 21:00 Famotidine (Pepcid) 20 mg BID PO Last administered on 09/11/16 20:31; Admin Dose 20 MG; Start 09/09/16 at 21:00; Stop 10/03/16 at 20:59 Acetaminophen/ Hydrocodone Bitart ([place] (5/325)) 1 tab Q6H PRN PO PAIN Last administered on 09/11/16 22:09; Admin Dose 1 TAB; Start 09/09/16 at 22:00 Valacyclovir HCl (Valtrex) 2,000 mg BID PO Last administered on 09/11/16 20:30 ; Admin Dose 2,000 MG; Start 09/10/16 at 13:30; Stop 09/12/16 at 13:29 Levothyroxine Sodium (Synthroid) 88 mcg DAILY@06 PO Last administered on 06:26; Admin Dose 88 MCG; Start 09/11/16 at 06:00 Taco Castillo DO Sep 11, 2016 22:45
[2016-09-11] MEDS: POTASSIUM CHLORIDE (SR) 20 MEQ TAB PO SCH (22:50)
[2016-09-12] MEDS: HYDROCODONE/APAP (5/325) TAB PO PRN ×3 (04:28→19:23)
[2016-09-12] MEDS: POTASSIUM CHLORIDE (SR) 20 MEQ TAB PO SCH (06:16)
[2016-09-12] MEDS: LEVOTHYROXINE 88 MCG TAB PO SCH (06:17)
[2016-09-12] MEDS: FUROSEMIDE 40 MG TAB PO SCH (06:17)
[2016-09-12 07:46] VITALS: BP 110/57; RESP 18
[2016-09-12] MEDS: ENOXAPARIN 40 MG/0.4 ML SYG SC SCH (08:12)
[2016-09-12] MEDS: SALMETEROL/FLUTICASONE 250/50 INHA INH SCH ×2 (08:49→20:17)
[2016-09-12] MEDS: DORZOLAMIDE/TIMOLOL 10 ML OPH LEFT EYE SCH ×2 (08:50→20:18)
[2016-09-12] MEDS: TIOTROPIUM 18 MCG CAPSULE INHA DEV INH SCH (08:50)
[2016-09-12] MEDS: VALACYCLOVIR 500 MG TAB PO SCH (08:51)
[2016-09-12] MEDS: FAMOTIDINE 20 MG TAB PO SCH ×2 (08:51→20:18)
[2016-09-12] MEDS: BUSPIRONE 5 MG TAB PO SCH ×2 (08:51→20:22)
[2016-09-12] MEDS: METOPROLOL (XL) 50 MG TAB PO SCH ×2 (08:58→20:18)
[2016-09-12] MEDS: LATANOPROST 0.005% 2.5 ML OPH LEFT EYE SCH ×2 (09:00→13:35)
--- NOTE | 2016-09-12 11:47 | CONS ---
Date/Time of Note Date/Time of Note DATE: 09/12/16 TIME: 11:45 Consult Date/Type/Reason Admit Date/Time Sep 08, 2016 at 18:41 Type of Consultation: cv Subjective Complains of mouth sores Objective pulm- cta min assist ambulation Vital Signs Date Time Temp Pulse Resp B/P Pulse Ox O2 Delivery O2 Flow Rate FiO2 09/12/16 07:46 98.0 71 18 110/57 99 09/11/16 19:30 Nasal Cannula 3.0 Intake and Output 09/11/16 09/11/16 09/12/16 15:00 23:00 07:00 Intake Total 360 ml 240 ml 550 ml Output Total 2 ml Balance 360 ml 238 ml 550 ml Results/Medications Result Diagram: 09/09/1670109/09/16701 Medications Current Medications Docusate Sodium (Colace) 100 mg BID PO ; Start 09/08/16 at 19:01; Status Future Hold Ondansetron HCl (Zofran Inj) 4 mg Q6H PRN IV NAUSEA AND/OR VOMITING; Start 09/08 at 19:01 Acetaminophen (Tylenol Tab) 650 mg Q6H PRN PO PAIN LEVEL 1-3 OR FEVER; Start at 19:01 Ibuprofen (Motrin) 600 mg Q6H PRN PO PAIN LEVEL 1-3; Start 09/08/16 at 19:01 Enoxaparin Sodium (Lovenox) 40 mg DAILY@07 SC Last administered on 09/12/16 08: 12; Admin Dose 40 MG; Start 09/08/16 at 19:01 Buspirone HCl (Buspar) 5 mg BID PO Last administered on 09/12/16 08:51; Admin Dose 5 MG; Start 09/08/16 at 19:01 Dorzolamide/ Timolol (Cosopt) 1 drop BID LEFT EYE Last administered on 08:50; Admin Dose 1 DROP; Start 09/08/16 at 19:01 Latanoprost (Xalatan) 1 drop DAILY LEFT EYE Last administered on 09/11/16 09:33 ; Admin Dose 1 DROP; Start 09/08/16 at 19:01 Lorazepam (Ativan) 0.5 mg HS PRN PO ANXIETY; Start 09/08/16 at 19:01 Salmeterol Xinafoate/ Fluticasone (Advair 250/50 Diskus) 1 inh BID INH Last administered on 09/12/16 08:49; Admin Dose 1 INH; Start 09/08/16 at 19:01 Tiotropium [place] (Spiriva) 1 inh DAILY INH Last administered on 09/12/16 08: 50; Admin Dose 1 INH; Start 09/08/16 at 19:01 Hydralazine HCl (Apresoline) 10 mg Q6H PRN IV SBP >170; Start 09/08/16 at 19:01 Senna (Senokot) 1 tab BID PO ; Start 09/08/16 at 19:01; Status Future Hold Polyethylene Glycol (Miralax) 17 gm DAILY GTB ; Start 09/08/16 at 19:01; Status Future Hold Sertraline HCl (Zoloft) 100 mg HS PO Last administered on 09/11/16 20:31; Admin Dose 100 MG; Start 09/08/16 at 19:01 Furosemide (Lasix) 20 mg DAILY@06 PO Last administered on 09/12/16 06:17; Admin Dose 20 MG; Start 09/09/16 at 06:00 Levofloxacin (Levaquin) 750 mg Q48H PO Last administered on 09/10/16 20:36; Admin Dose 750 MG; Start 09/08/16 at 21:00; Stop 09/14/16 at 23:59 Loperamide HCl (Imodium Cap) 2 mg Q6H PRN PO DIARRHEA Last administered on 21:22; Admin Dose 2 MG; Start 09/08/16 at 19:30 Zolpidem Tartrate (Ambien) 10 mg HS PRN PO INSOMNIA Last administered on 22:09; Admin Dose 10 MG; Start 09/08/16 at 21:00 Hydrocortisone (Anusol-Hc Supp) 25 mg DAILY PRN [place] HEMORROID PAIN/ITCHING Last administered on 09/09/16 14:59; Admin Dose 25 MG; Start 09/09/16 at 11:00 Metoprolol Succinate (Toprol Xl) 50 mg BID PO Last administered on 09/11/16 20: 31; Admin Dose 50 MG; Start 09/09/16 at 21:00 Famotidine (Pepcid) 20 mg BID PO Last administered on 09/12/16 08:51; Admin Dose 20 MG; Start 09/09/16 at 21:00; Stop 10/03/16 at 20:59 Acetaminophen/ Hydrocodone Bitart ([place] (5/325)) 1 tab Q6H PRN PO PAIN Last administered on 09/12/16 10:45; Admin Dose 1 TAB; Start 09/09/16 at 22:00 Valacyclovir HCl (Valtrex) 2,000 mg BID PO Last administered on 09/12/16 08:51 ; Admin Dose 2,000 MG; Start 09/10/16 at 13:30; Stop 09/12/16 at 13:29 Levothyroxine Sodium (Synthroid) 88 mcg DAILY@06 PO Last administered on 06:17; Admin Dose 88 MCG; Start 09/11/16 at 06:00 Clonidine (Catapres) 0.1 mg DAILY PO ; Start 09/12/16 at 09:00 Guaifenesin/ Dextromethorphan (Robitussin Dm Liquid Cup) 5 ml Q4H PRN PO cough ; Start 09/12/16 at 11:00 Docosanol (Abreva) 1 applic BID PRN TOP COLD SORE; Start 09/12/16 at 12:30 Assessment/Plan Additional Assessment/Plan Rehab- Diffuse myopathy in addition to debility secondary to postsurgical recovery and respiratory distress. Continue to increase activities as tolerated cold sores- antviral, and abreva topically Appendicitis, status post appendectomy. Respiratory distress secondary to congestive heart failure and chronic obstructive pulmonary disease exacerbations. Postoperative hypotension- improved Renal insufficiency. Hypertension. Hypothyroidism. Hypercholesterolemia. Glaucoma. Hemorrhoids. LAUREN MCLAUGHLIN MD Sep 12, 2016 11:47
[2016-09-12] MEDS ORDERED: DOCOSANOL 2 GM CREAM TOP PRN (12:30)
[2016-09-12 13:03] LABS: BASOPHIL # 0.1 10^3/ul (0.0-0.1); BASOPHILS % 0.3 % (0.0-2.0); EOSINOPHILS # 0.1 10^3/ul (0.0-0.5); EOSINOPHILS % 0.3 % (0.0-7.0); HEMATOCRIT 36.1 % (37.0-47.0); HEMOGLOBIN 11.9 g/dl (12.0-16.0); LYMPHOCYTES # 1.7 10^3/ul (0.8-2.9); LYMPHOCYTES % 10.2 % (15.0-51.0); MEAN CORPUSCULAR HGB CONC 32.8 g/dl (32.0-37.0); MEAN CORPUSCULAR VOLUME 85.2 fl (82.0-101.0); MEAN PLATELET VOLUME 7.7 fl (7.4-10.4); MONOCYTE # 0.9 10^3/ul (0.3-0.9); MONOCYTES % 5.7 % (0.0-11.0); NEUTROPHIL # 13.6 10^3/ul (1.6-7.5); NEUTROPHILS % 83.5 % (39.0-77.0); PLATELET COUNT 397 10^3/UL (140-440); RED BLOOD COUNT 4.24 10^6/ul (4.20-5.40); RED CELL DISTRIBUTION WIDTH 14.6 % (11.5-14.5); UNCORRECTED WBC 16.3 10^3/ul (4.8-10.8); WHITE BLOOD COUNT 16.3 10^3/ul (4.8-10.8)
[2016-09-12 13:11] LABS: CONDITION 1; LH ANALYZER COMMENTS 1
[2016-09-12 13:13] LABS: POTASSIUM 3.5 mmol/L (3.5-5.1)
[2016-09-12 13:15] LABS: ALBUMIN/GLOBULIN RATIO 0.88; BILIRUBIN,INDIRECT 0.1 mg/dl (0-1.1); BILIRUBIN,TOTAL 0.1 mg/dl (0.2-1.3); CREATININE 1.08 mg/dl (0.44-1.00); TOTAL PROTEIN 6.4 g/dl (6.1-8.1)
[2016-09-12 13:16] LABS: CALCIUM 8.5 mg/dl (8.4-10.2)
--- NOTE | 2016-09-12 14:33 | PN ---
Date/Time of Note Date/Time of Note DATE: 09/12/16 TIME: 14:32 Assessment/Plan VTE Prophylaxis VTE Prophylaxis Intervention: SCD's Assessment/Plan Chief Complaint/Hosp Course Assessment/Plan 1. Constipation Likely drug-induced, continue Colace and senna 2. 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 COPD (chronic obstructive pulmonary disease) Continue breathing treatment, oxygen as needed 4. Essential hypertension Well-controlled on medical management 5. Hyperlipidemia Continue statin 6. Acquired autoimmune hypothyroidism Continue levothyroxine We will continue monitor patient closely for recommendation management treatment as clinical course Problems: Subjective 24 Hr Interval Summary Free Text/Dictation Patient continues to complain of having abdominal discomfort Tolerating oral intake Exam/Review of Systems Vital Signs Vitals Vital Signs Date Time Temp Pulse Resp B/P Pulse Ox O2 Delivery O2 Flow Rate FiO2 09/12/16 07:46 98.0 71 18 110/57 99 09/11/16 19:30 Nasal Cannula 3.0 Intake and Output 09/11/16 09/11/16 09/12/16 15:00 23:00 07:00 Intake Total 360 ml 240 ml 550 ml Output Total 2 ml Balance 360 ml 238 ml 550 ml Exam General: The patient is well-developed, Not in acute distress. HEENT: Atraumatic, normocephalic. The pupils are equal and round . Neck: Supple with full range of motion. Chest: Normal expansion of the thorax during inspiration Lungs: Clear to auscultation bilaterally Heart: Normal S1-S2, Regular rhythm and rate. Abdomen: Soft , nontender, nondistended , bowel sounds are present. Surgical site is dry and clean Extremities: Normal to inspection, no edema no cyanosis Neurologic: Normal mental status,The patient is awake, alert and oriented . Results Result Diagram: 09/12/16 1239 09/12/16 1239 Results 24 hrs Laboratory Tests Test 09/12/16 12:39 Alanine Aminotransferase (ALT/SGPT) 33 Albumin 3.0 L Albumin/Globulin Ratio 0.88 Alkaline Phosphatase 68 Anion Gap 14 Aspartate Amino Transf (AST/SGOT) 33 Basophils # 0.1 Basophils % 0.3 Blood Morphology Comment Blood Urea Nitrogen 21 H Calcium Level 8.5 Carbon Dioxide Level 29 Chloride Level 98 Creatinine 1.08 H Direct Bilirubin 0.00 Eosinophils # 0.1 Eosinophils % 0.3 Globulin 3.40 H Glucose Level 110 Hematocrit 36.1 L Hemoglobin 11.9 L Indirect Bilirubin 0.1 Lymphocytes # 1.7 Lymphocytes % 10.2 L Mean Corpuscular Hemoglobin 28.0 L Mean Corpuscular Hemoglobin Concent 32.8 Mean Corpuscular Volume 85.2 Mean Platelet Volume 7.7 # Monocytes # 0.9 Monocytes % 5.7 Neutrophils # 13.6 H Neutrophils % 83.5 H Nucleated Red Blood Cells # 0.0 Nucleated Red Blood Cells % 0.0 Platelet Count 397 # Potassium Level 3.5 Red Blood Count 4.24 Red Cell Distribution Width 14.6 H Sodium Level 137 Total Bilirubin 0.1 L Total Protein 6.4 White Blood Count 16.3 H Medications Medications Current Medications Docusate Sodium (Colace) 100 mg BID PO ; Start 09/08/16 at 19:01; Status Future Hold Ondansetron HCl (Zofran Inj) 4 mg Q6H PRN IV NAUSEA AND/OR VOMITING; Start 09/08 at 19:01 Acetaminophen (Tylenol Tab) 650 mg Q6H PRN PO PAIN LEVEL 1-3 OR FEVER; Start at 19:01 Ibuprofen (Motrin) 600 mg Q6H PRN PO PAIN LEVEL 1-3; Start 09/08/16 at 19:01 Enoxaparin Sodium (Lovenox) 40 mg DAILY@07 SC Last administered on 09/12/16 08: 12; Admin Dose 40 MG; Start 09/08/16 at 19:01 Buspirone HCl (Buspar) 5 mg BID PO Last administered on 09/12/16 08:51; Admin Dose 5 MG; Start 09/08/16 at 19:01 Dorzolamide/ Timolol (Cosopt) 1 drop BID LEFT EYE Last administered on 08:50; Admin Dose 1 DROP; Start 09/08/16 at 19:01 Latanoprost (Xalatan) 1 drop DAILY LEFT EYE Last administered on 09/12/16 13:35 ; Admin Dose 1 DROP; Start 09/08/16 at 19:01 Lorazepam (Ativan) 0.5 mg HS PRN PO ANXIETY; Start 09/08/16 at 19:01 Salmeterol Xinafoate/ Fluticasone (Advair 250/50 Diskus) 1 inh BID INH Last administered on 09/12/16 08:49; Admin Dose 1 INH; Start 09/08/16 at 19:01 Tiotropium [place] (Spiriva) 1 inh DAILY INH Last administered on 09/12/16 08: 50; Admin Dose 1 INH; Start 09/08/16 at 19:01 Hydralazine HCl (Apresoline) 10 mg Q6H PRN IV SBP >170; Start 09/08/16 at 19:01 Senna (Senokot) 1 tab BID PO ; Start 09/08/16 at 19:01; Status Future Hold Polyethylene Glycol (Miralax) 17 gm DAILY GTB ; Start 09/08/16 at 19:01; Status Future Hold Sertraline HCl (Zoloft) 100 mg HS PO Last administered on 09/11/16 20:31; Admin Dose 100 MG; Start 09/08/16 at 19:01 Furosemide (Lasix) 20 mg DAILY@06 PO Last administered on 09/12/16 06:17; Admin Dose 20 MG; Start 09/09/16 at 06:00 Levofloxacin (Levaquin) 750 mg Q48H PO Last administered on 09/10/16 20:36; Admin Dose 750 MG; Start 09/08/16 at 21:00; Stop 09/14/16 at 23:59 Loperamide HCl (Imodium Cap) 2 mg Q6H PRN PO DIARRHEA Last administered on 21:22; Admin Dose 2 MG; Start 09/08/16 at 19:30 Zolpidem Tartrate (Ambien) 10 mg HS PRN PO INSOMNIA Last administered on 22:09; Admin Dose 10 MG; Start 09/08/16 at 21:00 Hydrocortisone (Anusol-Hc Supp) 25 mg DAILY PRN [place] HEMORROID PAIN/ITCHING Last administered on 09/09/16 14:59; Admin Dose 25 MG; Start 09/09/16 at 11:00 Metoprolol Succinate (Toprol Xl) 50 mg BID PO Last administered on 09/11/16 20: 31; Admin Dose 50 MG; Start 09/09/16 at 21:00 Famotidine (Pepcid) 20 mg BID PO Last administered on 09/12/16 08:51; Admin Dose 20 MG; Start 09/09/16 at 21:00; Stop 10/03/16 at 20:59 Acetaminophen/ Hydrocodone Bitart ([place] (5/325)) 1 tab Q6H PRN PO PAIN Last administered on 09/12/16 10:45; Admin Dose 1 TAB; Start 09/09/16 at 22:00 Levothyroxine Sodium (Synthroid) 88 mcg DAILY@06 PO Last administered on 06:17; Admin Dose 88 MCG; Start 09/11/16 at 06:00 Clonidine (Catapres) 0.1 mg DAILY PO ; Start 09/12/16 at 09:00 Guaifenesin/ Dextromethorphan (Robitussin Dm Liquid Cup) 5 ml Q4H PRN PO cough ; Start 09/12/16 at 11:00 Docosanol (Abreva) 1 applic BID PRN TOP COLD SORE; Start 09/12/16 at 12:30 YAMILE LARA MD Sep 12, 2016 14:33
[2016-09-12] MEDS: GUAIFENESIN/DM 5ML CUP PO PRN (16:37)
[2016-09-12] MEDS: DOCOSANOL 2 GM CREAM TOP PRN (16:37)
[2016-09-12 19:30] VITALS: BP 123/60; PULSE 85; RESP 19
[2016-09-12 20:00] VITALS: BP 136/59; RESP 19
[2016-09-12] MEDS: SERTRALINE 100 MG TAB PO SCH (20:18)
[2016-09-12] MEDS: LEVOFLOXACIN 750 MG TABLET PO SCH (20:22)
[2016-09-12] MEDS: ZOLPIDEM 5 MG TAB PO PRN (22:10)
[2016-09-13] MEDS: LEVOTHYROXINE 88 MCG TAB PO SCH (06:31)
[2016-09-13] MEDS: FUROSEMIDE 40 MG TAB PO SCH (06:32)
[2016-09-13] MEDS: HYDROCODONE/APAP (5/325) TAB PO PRN ×3 (06:32→19:53)
[2016-09-13 08:04] VITALS: BP 114/56; RESP 16
[2016-09-13] MEDS: ENOXAPARIN 40 MG/0.4 ML SYG SC SCH (08:16)
[2016-09-13] MEDS: METOPROLOL (XL) 50 MG TAB PO SCH (09:00)
[2016-09-13] MEDS: FAMOTIDINE 20 MG TAB PO SCH ×2 (09:01→21:31)
[2016-09-13] MEDS: BUSPIRONE 5 MG TAB PO SCH ×2 (09:01→21:31)
[2016-09-13] MEDS: TIOTROPIUM 18 MCG CAPSULE INHA DEV INH SCH (09:02)
[2016-09-13] MEDS: SALMETEROL/FLUTICASONE 250/50 INHA INH SCH ×2 (09:02→21:31)
[2016-09-13] MEDS: LATANOPROST 0.005% 2.5 ML OPH LEFT EYE SCH (09:03)
[2016-09-13] MEDS: DOCOSANOL 2 GM CREAM TOP PRN (09:03)
[2016-09-13] MEDS: DORZOLAMIDE/TIMOLOL 10 ML OPH LEFT EYE SCH ×2 (09:03→21:31)
--- NOTE | 2016-09-13 11:02 | CONS ---
Date/Time of Note Date/Time of Note DATE: 09/13/16 TIME: 10:59 Consult Date/Type/Reason Admit Date/Time Sep 08, 2016 at 18:41 Type of Consultation: cv Subjective Reports some abdominal discomfort Objective abd-(+) bs min assist 150 feet Vital Signs Date Time Temp Pulse Resp B/P Pulse Ox O2 Delivery O2 Flow Rate FiO2 09/13/16 08:04 98.7 65 16 114/56 98 09/12/16 19:30 Nasal Cannula 3.0 Intake and Output 09/12/16 09/12/16 09/13/16 15:00 23:00 07:00 Intake Total 480 ml 240 ml 1150 ml Output Total 450 ml 150 ml Balance 30 ml 90 ml 1150 ml Results/Medications Result Diagram: 09/12/16 1239 09/12/16 1239 Results 24 hrs Laboratory Tests Test 09/12/16 12:39 Alanine Aminotransferase (ALT/SGPT) 33 Albumin 3.0 L Albumin/Globulin Ratio 0.88 Alkaline Phosphatase 68 Anion Gap 14 Aspartate Amino Transf (AST/SGOT) 33 Basophils # 0.1 Basophils % 0.3 Blood Morphology Comment Blood Urea Nitrogen 21 H Calcium Level 8.5 Carbon Dioxide Level 29 Chloride Level 98 Creatinine 1.08 H Direct Bilirubin 0.00 Eosinophils # 0.1 Eosinophils % 0.3 Globulin 3.40 H Glucose Level 110 Hematocrit 36.1 L Hemoglobin 11.9 L Indirect Bilirubin 0.1 Lymphocytes # 1.7 Lymphocytes % 10.2 L Mean Corpuscular Hemoglobin 28.0 L Mean Corpuscular Hemoglobin Concent 32.8 Mean Corpuscular Volume 85.2 Mean Platelet Volume 7.7 # Monocytes # 0.9 Monocytes % 5.7 Neutrophils # 13.6 H Neutrophils % 83.5 H Nucleated Red Blood Cells # 0.0 Nucleated Red Blood Cells % 0.0 Platelet Count 397 # Potassium Level 3.5 Red Blood Count 4.24 Red Cell Distribution Width 14.6 H Sodium Level 137 Total Bilirubin 0.1 L Total Protein 6.4 White Blood Count 16.3 H Medications Current Medications Docusate Sodium (Colace) 100 mg BID PO ; Start 09/08/16 at 19:01; Status Future Hold Ondansetron HCl (Zofran Inj) 4 mg Q6H PRN IV NAUSEA AND/OR VOMITING; Start 09/08 at 19:01 Acetaminophen (Tylenol Tab) 650 mg Q6H PRN PO PAIN LEVEL 1-3 OR FEVER Last administered on 09/12/16 22:10; Admin Dose 650 MG; Start 09/08/16 at 19:01 Ibuprofen (Motrin) 600 mg Q6H PRN PO PAIN LEVEL 1-3; Start 09/08/16 at 19:01 Enoxaparin Sodium (Lovenox) 40 mg DAILY@07 SC Last administered on 09/13/16 08: 16; Admin Dose 40 MG; Start 09/08/16 at 19:01 Buspirone HCl (Buspar) 5 mg BID PO Last administered on 09/13/16 09:01; Admin Dose 5 MG; Start 09/08/16 at 19:01 Dorzolamide/ Timolol (Cosopt) 1 drop BID LEFT EYE Last administered on 09:03; Admin Dose 1 DROP; Start 09/08/16 at 19:01 Latanoprost (Xalatan) 1 drop DAILY LEFT EYE Last administered on 09/13/16 09:03 ; Admin Dose 1 DROP; Start 09/08/16 at 19:01 Lorazepam (Ativan) 0.5 mg HS PRN PO ANXIETY; Start 09/08/16 at 19:01 Salmeterol Xinafoate/ Fluticasone (Advair 250/50 Diskus) 1 inh BID INH Last administered on 09/13/16 09:02; Admin Dose 1 INH; Start 09/08/16 at 19:01 Tiotropium [place] (Spiriva) 1 inh DAILY INH Last administered on 09/13/16 09: 02; Admin Dose 1 INH; Start 09/08/16 at 19:01 Hydralazine HCl (Apresoline) 10 mg Q6H PRN IV SBP >170; Start 09/08/16 at 19:01 Senna (Senokot) 1 tab BID PO ; Start 09/08/16 at 19:01; Status Future Hold Polyethylene Glycol (Miralax) 17 gm DAILY GTB ; Start 09/08/16 at 19:01; Status Future Hold Sertraline HCl (Zoloft) 100 mg HS PO Last administered on 09/12/16 20:18; Admin Dose 100 MG; Start 09/08/16 at 19:01 Furosemide (Lasix) 20 mg DAILY@06 PO Last administered on 09/13/16 06:32; Admin Dose 20 MG; Start 09/09/16 at 06:00 Levofloxacin (Levaquin) 750 mg Q48H PO Last administered on 09/12/16 20:22; Admin Dose 750 MG; Start 09/08/16 at 21:00; Stop 09/14/16 at 23:59 Loperamide HCl (Imodium Cap) 2 mg Q6H PRN PO DIARRHEA Last administered on 21:22; Admin Dose 2 MG; Start 09/08/16 at 19:30 Zolpidem Tartrate (Ambien) 10 mg HS PRN PO INSOMNIA Last administered on 22:10; Admin Dose 10 MG; Start 09/08/16 at 21:00 Hydrocortisone (Anusol-Hc Supp) 25 mg DAILY PRN [place] HEMORROID PAIN/ITCHING Last administered on 09/09/16 14:59; Admin Dose 25 MG; Start 09/09/16 at 11:00 Metoprolol Succinate (Toprol Xl) 50 mg BID PO Last administered on 09/12/16 20: 18; Admin Dose 50 MG; Start 09/09/16 at 21:00 Famotidine (Pepcid) 20 mg BID PO Last administered on 09/13/16 09:01; Admin Dose 20 MG; Start 09/09/16 at 21:00; Stop 10/03/16 at 20:59 Levothyroxine Sodium (Synthroid) 88 mcg DAILY@06 PO Last administered on 06:31; Admin Dose 88 MCG; Start 09/11/16 at 06:00 Clonidine (Catapres) 0.1 mg DAILY PO ; Start 09/12/16 at 09:00 Guaifenesin/ Dextromethorphan (Robitussin Dm Liquid Cup) 5 ml Q4H PRN PO cough Last administered on 09/12/16 16:37; Admin Dose 5 ML; Start 09/12/16 at 11:00 Docosanol (Abreva) 1 applic BID PRN TOP COLD SORE Last administered on 09:03; Admin Dose 1 APPLIC; Start 09/12/16 at 12:30 Acetaminophen/ Hydrocodone Bitart ([place] (5/325)) 1 tab Q4 PRN PO PAIN; Start 09/13/16 at 13:00; Status UNV Assessment/Plan Additional Assessment/Plan Rehab- Diffuse myopathy in addition to debility secondary to postsurgical recovery and respiratory distress. Overall progressing with rehab cold sores- antviral, and abreva topically- improving leukocytosis- in setting of abdominal discomfort, will ask for surgery f/u Appendicitis, status post appendectomy. Respiratory distress secondary to congestive heart failure and chronic obstructive pulmonary disease exacerbations. Postoperative hypotension- improved Renal insufficiency. Hypertension. Hypothyroidism. Hypercholesterolemia. Glaucoma. Hemorrhoids. LAUREN MCLAUGHLIN MD Sep 13, 2016 11:02
[2016-09-13 11:47] LABS: EOSINOPHILS # 0.1 10^3/ul (0.0-0.5); EOSINOPHILS % 0.4 % (0.0-7.0); HEMATOCRIT 34.6 % (37.0-47.0); HEMOGLOBIN 11.2 g/dl (12.0-16.0); LYMPHOCYTES # 1.5 10^3/ul (0.8-2.9); LYMPHOCYTES % 9.3 % (15.0-51.0); MEAN CORPUSCULAR HGB CONC 32.4 g/dl (32.0-37.0); MEAN CORPUSCULAR VOLUME 86.3 fl (82.0-101.0); MEAN PLATELET VOLUME 7.4 fl (7.4-10.4); MONOCYTES % 5.9 % (0.0-11.0); NEUTROPHIL # 13.9 10^3/ul (1.6-7.5); NEUTROPHILS % 84.4 % (39.0-77.0); PLATELET COUNT 424 10^3/UL (140-440); RED BLOOD COUNT 4.01 10^6/ul (4.20-5.40); RED CELL DISTRIBUTION WIDTH 14.6 % (11.5-14.5); UNCORRECTED WBC 16.5 10^3/ul (4.8-10.8); WHITE BLOOD COUNT 16.5 10^3/ul (4.8-10.8)
[2016-09-13 12:00] LABS: CONDITION 1; LH ANALYZER COMMENTS 1
[2016-09-13] MEDS ORDERED: BARIUM SULF 2% 450 ML BTL (BERRY SMOOTHIE) PO ONE ×2 (12:30→13:30)
[2016-09-13] MEDS ORDERED: VITAMIN A & D 5 GM OINT PACKET TOP ONE (13:18)
--- NOTE | 2016-09-13 13:24 | CONS ---
Date/Time of Note Date/Time of Note DATE: 09/13/16 TIME: 13:23 Assessment/Plan Assessment/Plan Additional Assessment/Plan Acute decompensated diastolic congestive heart failure, resolving Acute appendicitis status post surgery Preserved ejection fraction Hypertension -Blood pressure remains on the lower end, would DC clonidine and decrease Toprol -XL to daily. Patient appears euvolemic. Would have Lasix when necessary. Potassium supplementation ordered. Consultation Date/Type/Reason Admit Date/Time Sep 08, 2016 at 18:41 Type of Consultation: cv 24 HR Interval Summary Free Text/Dictation Denies any shortness of breath, with physical therapy, breathing has improved. Denies chest pain or dizziness Exam/Review of Systems Vital Signs Vitals Vital Signs Date Time Temp Pulse Resp B/P Pulse Ox O2 Delivery O2 Flow Rate FiO2 09/13/16 08:04 98.7 65 16 114/56 98 09/12/16 19:30 Nasal Cannula 3.0 Intake and Output 09/12/16 09/12/16 09/13/16 15:00 23:00 07:00 Intake Total 480 ml 240 ml 1150 ml Output Total 450 ml 150 ml Balance 30 ml 90 ml 1150 ml Exam No apparent distress Constitutional: alert, oriented Head: normocephalic Neck: supple Respiratory: other (course breath sounds bilaterally, no wheezing) Cardiovascular: other (S1-S2 heard), regular rate and rhythm Gastrointestinal: bowel sounds, non-tender, soft Extremities: other (no edema) Results Result Diagram: 09/13/16 1139 09/12/16 1239 Results 24 hrs Laboratory Tests Test 09/13/16 11:39 Basophils # 0.0 Basophils % 0.0 Blood Morphology Comment Eosinophils # 0.1 Eosinophils % 0.4 Hematocrit 34.6 L Hemoglobin 11.2 L Lymphocytes # 1.5 Lymphocytes % 9.3 L Mean Corpuscular Hemoglobin 28.0 L Mean Corpuscular Hemoglobin Concent 32.4 Mean Corpuscular Volume 86.3 Mean Platelet Volume 7.4 Monocytes # 1.0 H Monocytes % 5.9 Neutrophils # 13.9 H Neutrophils % 84.4 H Nucleated Red Blood Cells # 0.0 Nucleated Red Blood Cells % 0.0 Platelet Count 424 Red Blood Count 4.01 L Red Cell Distribution Width 14.6 H White Blood Count 16.5 H Medications Medications Current Medications Docusate Sodium (Colace) 100 mg BID PO ; Start 2/3/17 at 19:01; Status Future Hold Ondansetron HCl (Zofran Inj) 4 mg Q6H PRN IV NAUSEA AND/OR VOMITING; Start 09/08 at 19:01 Acetaminophen (Tylenol Tab) 650 mg Q6H PRN PO PAIN LEVEL 1-3 OR FEVER Last administered on 09/12/16 22:10; Admin Dose 650 MG; Start 09/08/16 at 19:01 Ibuprofen (Motrin) 600 mg Q6H PRN PO PAIN LEVEL 1-3; Start 09/08/16 at 19:01 Enoxaparin Sodium (Lovenox) 40 mg DAILY@07 SC Last administered on 09/13/16 08: 16; Admin Dose 40 MG; Start 09/08/16 at 19:01 Buspirone HCl (Buspar) 5 mg BID PO Last administered on 09/13/16 09:01; Admin Dose 5 MG; Start 09/08/16 at 19:01 Dorzolamide/ Timolol (Cosopt) 1 drop BID LEFT EYE Last administered on 09:03; Admin Dose 1 DROP; Start 09/08/16 at 19:01 Latanoprost (Xalatan) 1 drop DAILY LEFT EYE Last administered on 09/13/16 09:03 ; Admin Dose 1 DROP; Start 09/08/16 at 19:01 Lorazepam (Ativan) 0.5 mg HS PRN PO ANXIETY; Start 09/08/16 at 19:01 Salmeterol Xinafoate/ Fluticasone (Advair 250/50 Diskus) 1 inh BID INH Last administered on 09/13/16 09:02; Admin Dose 1 INH; Start 09/08/16 at 19:01 Tiotropium [place] (Spiriva) 1 inh DAILY INH Last administered on 09/13/16 09: 02; Admin Dose 1 INH; Start 09/08/16 at 19:01 Hydralazine HCl (Apresoline) 10 mg Q6H PRN IV SBP >170; Start 09/08/16 at 19:01 Senna (Senokot) 1 tab BID PO ; Start 09/08/16 at 19:01; Status Future Hold Polyethylene Glycol (Miralax) 17 gm DAILY GTB ; Start 09/08/16 at 19:01; Status Future Hold Sertraline HCl (Zoloft) 100 mg HS PO Last administered on 09/12/16 20:18; Admin Dose 100 MG; Start 09/08/16 at 19:01 Furosemide (Lasix) 20 mg DAILY@06 PO Last administered on 09/13/16 06:32; Admin Dose 20 MG; Start 09/09/16 at 06:00 Levofloxacin (Levaquin) 750 mg Q48H PO Last administered on 09/12/16 20:22; Admin Dose 750 MG; Start 09/08/16 at 21:00; Stop 09/14/16 at 23:59 Loperamide HCl (Imodium Cap) 2 mg Q6H PRN PO DIARRHEA Last administered on 21:22; Admin Dose 2 MG; Start 09/08/16 at 19:30 Zolpidem Tartrate (Ambien) 10 mg HS PRN PO INSOMNIA Last administered on 22:10; Admin Dose 10 MG; Start 09/08/16 at 21:00 Hydrocortisone (Anusol-Hc Supp) 25 mg DAILY PRN [place] HEMORROID PAIN/ITCHING Last administered on 09/09/16 14:59; Admin Dose 25 MG; Start 09/09/16 at 11:00 Metoprolol Succinate (Toprol Xl) 50 mg BID PO Last administered on 09/12/16 20: 18; Admin Dose 50 MG; Start 09/09/16 at 21:00 Famotidine (Pepcid) 20 mg BID PO Last administered on 09/13/16 09:01; Admin Dose 20 MG; Start 09/09/16 at 21:00; Stop 10/03/16 at 20:59 Levothyroxine Sodium (Synthroid) 88 mcg DAILY@06 PO Last administered on 06:31; Admin Dose 88 MCG; Start 09/11/16 at 06:00 Clonidine (Catapres) 0.1 mg DAILY PO ; Start 09/12/16 at 09:00 Guaifenesin/ Dextromethorphan (Robitussin Dm Liquid Cup) 5 ml Q4H PRN PO cough Last administered on 09/12/16 16:37; Admin Dose 5 ML; Start 09/12/16 at 11:00 Docosanol (Abreva) 1 applic BID PRN TOP COLD SORE Last administered on 09:03; Admin Dose 1 APPLIC; Start 09/12/16 at 12:30 Acetaminophen/ Hydrocodone Bitart ([place] (5/325)) 1 tab Q4 PRN PO PAIN Last administered on 09/13/16 13:06; Admin Dose 1 TAB; Start 09/13/16 at 13:00 Taco Castillo DO Sep 13, 2016 13:24
[2016-09-13] MEDS ORDERED: SOD CHLORIDE 0.9% 100 ML ONE (13:26)
[2016-09-13] MEDS ORDERED: IOHEXOL 300MG/ML 150 ML BTL ONE (13:26)
--- NOTE | 2016-09-13 14:16 | RADRPT ---
PROCEDURE: CT scan of the abdomen and pelvis with and without IV contrast. CLINICAL INDICATION: Status post appendectomy. Ongoing postoperative abdominal pain. TECHNIQUE: Thin section axial, coronal and sagittal images were performed through the abdomen and pelvis without contrast and then following the injection of 100 cc of Isovue 370. Low-dose protocol imaging was utilized. One or more of the following dose reduction techniques were used: - Automated exposure control. - Adjustment of the mA and/or kV according to patient size. Use of iterative reconstruction technique. Radiation Dose: CTDI: 12.25 and DLP: 594.94 COMPARISON: CT scan abdomen pelvis 09/03/2016. FINDINGS: Lungs and pleural space: Small pleural effusions have developed since the prior study. There is harriett te-like atelectasis in the right lower lobe. There is compressive atelectasis in the dependent port ion of the lungs. Heart: There is a small pericardial effusion. There are vascular calcifications in the coronary art eries. The heart is normal in size. The liver, common bile duct and gallbladder: There are multiple hepatic cysts. The liver is normal in size measuring 14.2 cm AP. No intrahepatic biliary ductal dilatation is identified. There is a small amount of pericholecystic fluid but no evidence of gallbladder wall thickening. There is a ro und 2 mm calcification adjacent to the ventral surface of the gallbladder wall which is unchanged an d may be the result of a small granuloma. There is no evidence of cholelithiasis. Pancreas: Normal. The extrahepatic common bile duct is normal. Gastrointestinal: There is no evidence 50 hernia. The stomach is incompletely distended and this is thought to account for gastric wall thickening. There is fluid in the small bowel loops but no mec hanical small-bowel obstruction. There is suture material at the cecum and clips adjacent to the ce cum related to prior cholecystectomy. There is a pelvic abscess measuring up to 6.8 cm transverse by 1.1 cm AP. There is a 1.1 cm calcifi cation suspicious for a calcified lymph node or appendicolith in the right lower quadrant which is u nchanged. Kidneys and bladder : The benign renal cysts previously identified on 09/03/2016 are unchanged. The re is no evidence of a solid mass or hydronephrosis. The ureters and urinary bladder are normal. Adrenal glands: Normal. Spleen: Normal. Lymph nodes: Normal. Reproductive system: Normal for age. Bony elements: The innominate bone and visible portions of the femurs are normal. There are degener ative osteophytes in the lower thoracic spine. There is disk space narrowing and vacuum disk phenom enon with ventral and dorsal spondylosis at L5-S1. Vasculature: There are atherosclerotic vascular calcifications in the abdominal aorta, common iliac arteries, internal and external iliac and common femoral arteries. No aneurysm is identified. IMPRESSION: 1. There is a small amount of free fluid in the lower pelvis with a second encapsulated fluid colle ction noted ventral to the rectum at the level of the lower third of the sacrum measuring 6.8 cm tra nsverse by 1 cm AP. This is suspicious for a small pelvic abscess. 2. Status post appendectomy with postsurgical changes noted in the right lower quadrant and cecum. 3. Stable appearance of benign hepatic and renal cysts when compared to 09/03/2016. 4. Osteoarthritis of the thoracic and lumbosacral spine. 5. Interval lobe and a small pleural effusions with bibasilar atelectasis. 6. Atherosclerotic vascular disease. RPTAT:AAJJ Physician Eulalia Date Time Electronically viewed and signed by Physician Eulalia on 09/13/2016 14:16 NAHID/
--- NOTE | 2016-09-13 14:59 | PN ---
Date/Time of Note Date/Time of Note DATE: 09/13/16 TIME: 14:55 Assessment/Plan VTE Prophylaxis VTE Prophylaxis Intervention: LMWH Assessment/Plan Chief Complaint/Hosp Course Assessment/Plan 1. Abdominal pain With CAT scan finding of small amount of free fluid in the lower pelvis with a second encapsulated fluid collection suspicious for a small pelvic abscess. General surgery has been consulted, continue IV antibiotics. 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 COPD (chronic obstructive pulmonary disease) Continue breathing treatment, oxygen as needed 4. Essential hypertension Well-controlled on medical management 5. Hyperlipidemia Continue statin 6. Acquired autoimmune hypothyroidism Continue levothyroxine We will continue monitor patient closely for recommendation management treatment as clinical course Problems: Subjective 24 Hr Interval Summary Free Text/Dictation Patient continues to complain of having abdominal discomfort and bloating No nausea vomiting or diarrhea Positive for bowel movement, no loose bowel Exam/Review of Systems Vital Signs Vitals Vital Signs Date Time Temp Pulse Resp B/P Pulse Ox O2 Delivery O2 Flow Rate FiO2 09/13/16 08:04 98.7 65 16 114/56 98 09/12/16 19:30 Nasal Cannula 3.0 Intake and Output 09/12/16 09/12/16 09/13/16 15:00 23:00 07:00 Intake Total 480 ml 240 ml 1150 ml Output Total 450 ml 150 ml Balance 30 ml 90 ml 1150 ml Exam General: The patient is well-developed, Not in acute distress. HEENT: Atraumatic, normocephalic. The pupils are equal and round . Neck: Supple with full range of motion. Chest: Normal expansion of the thorax during inspiration Lungs: Clear to auscultation bilaterally Heart: Normal S1-S2, Regular rhythm and rate. Abdomen: Soft , minimal tenderness in the lower abdominal region, nondistended , bowel sounds are present. Extremities: Normal to inspection, no edema no cyanosis Neurologic: Normal mental status,The patient is awake, alert and oriented . Results Result Diagram: 09/13/16 1139 09/12/16 1239 Results 24 hrs Laboratory Tests Test 09/13/16 11:39 Basophils # 0.0 Basophils % 0.0 Blood Morphology Comment Eosinophils # 0.1 Eosinophils % 0.4 Hematocrit 34.6 L Hemoglobin 11.2 L Lymphocytes # 1.5 Lymphocytes % 9.3 L Mean Corpuscular Hemoglobin 28.0 L Mean Corpuscular Hemoglobin Concent 32.4 Mean Corpuscular Volume 86.3 Mean Platelet Volume 7.4 Monocytes # 1.0 H Monocytes % 5.9 Neutrophils # 13.9 H Neutrophils % 84.4 H Nucleated Red Blood Cells # 0.0 Nucleated Red Blood Cells % 0.0 Platelet Count 424 Red Blood Count 4.01 L Red Cell Distribution Width 14.6 H White Blood Count 16.5 H Medications Medications Current Medications Docusate Sodium (Colace) 100 mg BID PO ; Start 09/08/16 at 19:01; Status Future Hold Ondansetron HCl (Zofran Inj) 4 mg Q6H PRN IV NAUSEA AND/OR VOMITING; Start 09/08 at 19:01 Acetaminophen (Tylenol Tab) 650 mg Q6H PRN PO PAIN LEVEL 1-3 OR FEVER Last administered on 09/12/16 22:10; Admin Dose 650 MG; Start 09/08/16 at 19:01 Ibuprofen (Motrin) 600 mg Q6H PRN PO PAIN LEVEL 1-3; Start 09/08/16 at 19:01 Enoxaparin Sodium (Lovenox) 40 mg DAILY@07 SC Last administered on 09/13/16 08: 16; Admin Dose 40 MG; Start 09/08/16 at 19:01 Buspirone HCl (Buspar) 5 mg BID PO Last administered on 09/13/16 09:01; Admin Dose 5 MG; Start 09/08/16 at 19:01 Dorzolamide/ Timolol (Cosopt) 1 drop BID LEFT EYE Last administered on 09:03; Admin Dose 1 DROP; Start 09/08/16 at 19:01 Latanoprost (Xalatan) 1 drop DAILY LEFT EYE Last administered on 09/13/16 09:03 ; Admin Dose 1 DROP; Start 09/08/16 at 19:01 Lorazepam (Ativan) 0.5 mg HS PRN PO ANXIETY; Start 09/08/16 at 19:01 Salmeterol Xinafoate/ Fluticasone (Advair 250/50 Diskus) 1 inh BID INH Last administered on 09/13/16 09:02; Admin Dose 1 INH; Start 09/08/16 at 19:01 Tiotropium [place] (Spiriva) 1 inh DAILY INH Last administered on 09/13/16 09: 02; Admin Dose 1 INH; Start 09/08/16 at 19:01 Hydralazine HCl (Apresoline) 10 mg Q6H PRN IV SBP >170; Start 09/08/16 at 19:01 Senna (Senokot) 1 tab BID PO ; Start 09/08/16 at 19:01; Status Future Hold Polyethylene Glycol (Miralax) 17 gm DAILY GTB ; Start 09/08/16 at 19:01; Status Future Hold Sertraline HCl (Zoloft) 100 mg HS PO Last administered on 09/12/16 20:18; Admin Dose 100 MG; Start 09/08/16 at 19:01 Levofloxacin (Levaquin) 750 mg Q48H PO Last administered on 09/12/16 20:22; Admin Dose 750 MG; Start 09/08/16 at 21:00; Stop 09/14/16 at 23:59 Loperamide HCl (Imodium Cap) 2 mg Q6H PRN PO DIARRHEA Last administered on 21:22; Admin Dose 2 MG; Start 09/08/16 at 19:30 Zolpidem Tartrate (Ambien) 10 mg HS PRN PO INSOMNIA Last administered on 22:10; Admin Dose 10 MG; Start 09/08/16 at 21:00 Hydrocortisone (Anusol-Hc Supp) 25 mg DAILY PRN [place] HEMORROID PAIN/ITCHING Last administered on 09/09/16 14:59; Admin Dose 25 MG; Start 09/09/16 at 11:00 Famotidine (Pepcid) 20 mg BID PO Last administered on 09/13/16 09:01; Admin Dose 20 MG; Start 09/09/16 at 21:00; Stop 10/03/16 at 20:59 Levothyroxine Sodium (Synthroid) 88 mcg DAILY@06 PO Last administered on 06:31; Admin Dose 88 MCG; Start 09/11/16 at 06:00 Guaifenesin/ Dextromethorphan (Robitussin Dm Liquid Cup) 5 ml Q4H PRN PO cough Last administered on 09/12/16 16:37; Admin Dose 5 ML; Start 09/12/16 at 11:00 Docosanol (Abreva) 1 applic BID PRN TOP COLD SORE Last administered on 09:03; Admin Dose 1 APPLIC; Start 09/12/16 at 12:30 Acetaminophen/ Hydrocodone Bitart ([place] (5/325)) 1 tab Q4 PRN PO PAIN Last administered on 09/13/16 13:06; Admin Dose 1 TAB; Start 09/13/16 at 13:00 Metoprolol Succinate (Toprol Xl) 50 mg DAILY PO ; Start 09/14/16 at 09:00 YAMILE LARA MD Sep 13, 2016 14:59
[2016-09-13] MEDS ORDERED: DOCUSATE SODIUM 100 MG CAP PO PRN (15:00)
--- NOTE | 2016-09-13 18:21 | PN ---
DATE: 09/13/2016 SUBJECTIVE: Ms. Aguila is postoperative day 8 from a laparoscopic appendectomy. She is eating we ll but complaining of having multiple bowel movements per day. She states that she feels like she a lways has to go. OBJECTIVE: VITAL SIGNS: She is afebrile. Vital signs stable. ABDOMEN: Soft, nondistended. LABORATORY DATA: Her labs reveal a white count of 17, hematocrit of 35 and platelets of ____. Sodi um from yesterday is ____ potassium ____, chloride 98, CO2 29, BUN and creatinine 21 and 1 and gluco se of 110. She did have a CT today of her abdomen and pelvis which basically revealed a small amount of free fl uid in the low pelvis with ____ encapsulated fluid collection noted ventral to the rectum which is 7 x 1 cm, possibly small pelvic abscess. ASSESSMENT AND PLAN: Ms. Aguila is an 86-year-old female, status post laparoscopic appendectomy. 1. Tenesmus. Will obtain C. difficile as the patient possibly has C. difficile, which could explai n her white count and her tenesmus. 2. Will speak to Interventional Radiology about possibly draining the fluid collection, which I thi nk is likely not drainable and should resolve with antibiotics. 3. Will continue to follow. Dictated By: TRISTAN MYLES/VU Conf#: [id number] DID#: [id number]
[2016-09-13] MEDS: SERTRALINE 100 MG TAB PO SCH (21:31)
[2016-09-13] MEDS: ZOLPIDEM 5 MG TAB PO PRN (21:31)
[2016-09-13] MEDS: GUAIFENESIN/DM 5ML CUP PO PRN (21:31)
[2016-09-13 21:36] VITALS: BP 138/60; RESP 18
[2016-09-13] MEDS: metroNIDAZOLE 500 MG TAB PO SCH (22:00)
[2016-09-14] VITALS (7 sets, daily range): BP systolic 123–186; BP diastolic 67–79; PULSE 73–81; RESP 18–20
[2016-09-14] MEDS: HYDROCODONE/APAP (5/325) TAB PO PRN ×3 (03:23→21:54)
[2016-09-14] MEDS: metroNIDAZOLE 500 MG TAB PO SCH ×3 (06:00→21:34)
[2016-09-14] MEDS: LEVOTHYROXINE 88 MCG TAB PO SCH (06:00)
[2016-09-14] MEDS: DOCOSANOL 2 GM CREAM TOP PRN (06:19)
[2016-09-14 07:04] LABS: INR 0.96; PROTIME 12.8 Sec (12.2-14.2)
[2016-09-14 07:11] LABS: EOSINOPHILS # 0.1 10^3/ul (0.0-0.5); EOSINOPHILS % 0.5 % (0.0-7.0); HEMATOCRIT 34.5 % (37.0-47.0); HEMOGLOBIN 11.6 g/dl (12.0-16.0); LYMPHOCYTES # 1.9 10^3/ul (0.8-2.9); LYMPHOCYTES % 11.6 % (15.0-51.0); MEAN CORPUSCULAR HEMOGLOBIN 28.7 pg (29.0-33.0); MEAN CORPUSCULAR HGB CONC 33.6 g/dl (32.0-37.0); MEAN CORPUSCULAR VOLUME 85.5 fl (82.0-101.0); MEAN PLATELET VOLUME 7.6 fl (7.4-10.4); NEUTROPHIL # 13.1 10^3/ul (1.6-7.5); NEUTROPHILS % 81.9 % (39.0-77.0); PLATELET COUNT 461 10^3/UL (140-440); RED BLOOD COUNT 4.03 10^6/ul (4.20-5.40); RED CELL DISTRIBUTION WIDTH 14.4 % (11.5-14.5)
[2016-09-14 07:23] LABS: CONDITION 1
[2016-09-14 07:40] LABS: POTASSIUM 4.2 mmol/L (3.5-5.1)
[2016-09-14 07:42] LABS: CREATININE 0.81 mg/dl (0.44-1.00)
[2016-09-14 07:43] LABS: CALCIUM 8.4 mg/dl (8.4-10.2)
[2016-09-14] MEDS: TIOTROPIUM 18 MCG CAPSULE INHA DEV INH SCH (09:00)
[2016-09-14] MEDS: LATANOPROST 0.005% 2.5 ML OPH LEFT EYE SCH (10:10)
[2016-09-14] MEDS: SALMETEROL/FLUTICASONE 250/50 INHA INH SCH ×2 (10:10→21:33)
[2016-09-14] MEDS: FAMOTIDINE 20 MG TAB PO SCH ×2 (10:10→21:33)
[2016-09-14] MEDS: DORZOLAMIDE/TIMOLOL 10 ML OPH LEFT EYE SCH ×2 (10:10→21:34)
[2016-09-14] MEDS: BUSPIRONE 5 MG TAB PO SCH ×2 (10:11→21:33)
[2016-09-14] MEDS: METOPROLOL (XL) 50 MG TAB PO SCH (10:11)
[2016-09-14] MEDS: GUAIFENESIN/DM 5ML CUP PO PRN (10:19)
--- NOTE | 2016-09-14 11:12 | PN ---
DATE: 09/14/2016 SUBJECTIVE: Ms. Aguila is still complaining of tenesmus. VITAL SIGNS: She is afebrile. Vital signs stable. ABDOMEN: Soft, nondistended. LABORATORY DATA: Reveal a white count today of 16, hematocrit 35 and platelets of 461. Coags: PT 12.8, PTT 26. ASSESSMENT AND PLAN: 1. Ms. Aguila is an 86-year-old female with a possible pelvic abscess status post laparoscopic ap pendectomy. 2. She is to undergo interventional radiology drainage of her pelvic abscess today. 3. Awaiting C. difficile. 4. Continue to follow. Dictated By: TRISTAN MYLES/NTS Conf#: [id number] DID#: [id number]
--- NOTE | 2016-09-14 11:36 | PN ---
Date/Time of Note Date/Time of Note DATE: 09/14/16 TIME: 11:34 Assessment/Plan VTE Prophylaxis VTE Prophylaxis Intervention: LMWH Assessment/Plan Chief Complaint/Hosp Course Assessment/Plan 1. Abdominal pain With CAT scan finding of small amount of free fluid in the lower pelvis with a second encapsulated fluid collection suspicious for a small pelvic abscess. General surgery has been consulted, continue IV antibiotics. Follow-up general surgery recommendations Plan for CT-guided drainage by interventional radiologist 2. 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 COPD (chronic obstructive pulmonary disease) Continue breathing treatment, oxygen as needed 4. Essential hypertension Well-controlled on medical management 5. Hyperlipidemia Continue statin 6. Acquired autoimmune hypothyroidism Continue levothyroxine We will continue monitor patient closely for recommendation management treatment as clinical course Problems: Subjective 24 Hr Interval Summary Free Text/Dictation Patient continues to complain of having lower abdominal region discomfort and pain Positive bowel movement N.p.o. secondary to upcoming procedure Exam/Review of Systems Vital Signs Vitals Vital Signs Date Time Temp Pulse Resp B/P Pulse Ox O2 Delivery O2 Flow Rate FiO2 09/14/16 08:00 98.2 81 20 145/78 94 Nasal Cannula 3.0 Intake and Output 09/13/16 09/13/16 09/14/16 15:00 23:00 07:00 Intake Total 600 ml 360 ml Output Total 400 ml 200 ml 450 ml Balance 200 ml 160 ml -450 ml Exam General: The patient is well-developed, Not in acute distress. HEENT: Atraumatic, normocephalic. The pupils are equal and round . Neck: Supple with full range of motion. Chest: Normal expansion of the thorax during inspiration Lungs: Clear to auscultation bilaterally Heart: Normal S1-S2, Regular rhythm and rate. Abdomen: Soft , lower abdominal region tenderness, nondistended , bowel sounds are present. Surgical site is dry and clean Extremities: Normal to inspection, no edema no cyanosis Neurologic: Normal mental status,The patient is awake, alert and oriented . Results Result Diagram: 09/14/1662609/14/16626 Results 24 hrs Laboratory Tests Test 09/13/16 11:39 09/14/16 06:27 Basophils # 0.0 0.0 Basophils % 0.0 0.0 Blood Morphology Comment Eosinophils # 0.1 0.1 Eosinophils % 0.4 0.5 Hematocrit 34.6 L 34.5 L Hemoglobin 11.2 L 11.6 L Lymphocytes # 1.5 1.9 Lymphocytes % 9.3 L 11.6 L Mean Corpuscular Hemoglobin 28.0 L 28.7 L Mean Corpuscular Hemoglobin Concent 32.4 33.6 Mean Corpuscular Volume 86.3 85.5 Mean Platelet Volume 7.4 7.6 Monocytes # 1.0 H 1.0 H Monocytes % 5.9 6.0 Neutrophils # 13.9 H 13.1 H Neutrophils % 84.4 H 81.9 H Nucleated Red Blood Cells # 0.0 0.0 Nucleated Red Blood Cells % 0.0 0.0 Platelet Count 424 461 H Red Blood Count 4.01 L 4.03 L Red Cell Distribution Width 14.6 H 14.4 White Blood Count 16.5 H 16.0 H Activated Partial Thromboplast Time 26.0 Anion Gap 14 Blood Urea Nitrogen 17 Calcium Level 8.4 Carbon Dioxide Level 27 Chloride Level 102 Creatinine 0.81 Glucose Level 97 INR International Normalized Ratio 0.96 Potassium Level 4.2 Prothrombin Time 12.8 Prothrombin Time Ratio 1.0 Sodium Level 139 Medications Medications Current Medications Docusate Sodium (Colace) 100 mg BID PO ; Start 09/08/16 at 19:01; Status Future Hold Ondansetron HCl (Zofran Inj) 4 mg Q6H PRN IV NAUSEA AND/OR VOMITING; Start 09/08 at 19:01 Acetaminophen (Tylenol Tab) 650 mg Q6H PRN PO PAIN LEVEL 1-3 OR FEVER Last administered on 09/12/16 22:10; Admin Dose 650 MG; Start 09/08/16 at 19:01 Ibuprofen (Motrin) 600 mg Q6H PRN PO PAIN LEVEL 1-3; Start 09/08/16 at 19:01 Enoxaparin Sodium (Lovenox) 40 mg DAILY@07 SC Last administered on 09/13/16 08: 16; Admin Dose 40 MG; Start 09/08/16 at 19:01; Status Future Hold Buspirone HCl (Buspar) 5 mg BID PO Last administered on 09/14/16 10:11; Admin Dose 5 MG; Start 09/08/16 at 19:01 Dorzolamide/ Timolol (Cosopt) 1 drop BID LEFT EYE Last administered on 10:10; Admin Dose 1 DROP; Start 09/08/16 at 19:01 Latanoprost (Xalatan) 1 drop DAILY LEFT EYE Last administered on 09/14/16 10:10 ; Admin Dose 1 DROP; Start 09/08/16 at 19:01 Lorazepam (Ativan) 0.5 mg HS PRN PO ANXIETY; Start 09/08/16 at 19:01 Salmeterol Xinafoate/ Fluticasone (Advair 250/50 Diskus) 1 inh BID INH Last administered on 09/14/16 10:10; Admin Dose 1 INH; Start 09/08/16 at 19:01 Tiotropium [place] (Spiriva) 1 inh DAILY INH Last administered on 09/13/16 09: 02; Admin Dose 1 INH; Start 09/08/16 at 19:01 Hydralazine HCl (Apresoline) 10 mg Q6H PRN IV SBP >170; Start 09/08/16 at 19:01 Senna (Senokot) 1 tab BID PO ; Start 09/08/16 at 19:01; Status Future Hold Polyethylene Glycol (Miralax) 17 gm DAILY GTB ; Start 09/08/16 at 19:01; Status Future Hold Sertraline HCl (Zoloft) 100 mg HS PO Last administered on 09/13/16 21:31; Admin Dose 100 MG; Start 09/08/16 at 19:01 Levofloxacin (Levaquin) 750 mg Q48H PO Last administered on 09/12/16 20:22; Admin Dose 750 MG; Start 09/08/16 at 21:00; Stop 09/14/16 at 23:59 Zolpidem Tartrate (Ambien) 10 mg HS PRN PO INSOMNIA Last administered on 21:31; Admin Dose 10 MG; Start 09/08/16 at 21:00 Hydrocortisone (Anusol-Hc Supp) 25 mg DAILY PRN [place] HEMORROID PAIN/ITCHING Last administered on 09/09/16 14:59; Admin Dose 25 MG; Start 09/09/16 at 11:00 Famotidine (Pepcid) 20 mg BID PO Last administered on 09/14/16 10:10; Admin Dose 20 MG; Start 09/09/16 at 21:00; Stop 10/03/16 at 20:59 Levothyroxine Sodium (Synthroid) 88 mcg DAILY@06 PO Last administered on 06:31; Admin Dose 88 MCG; Start 09/11/16 at 06:00 Guaifenesin/ Dextromethorphan (Robitussin Dm Liquid Cup) 5 ml Q4H PRN PO cough Last administered on 09/14/16 10:19; Admin Dose 5 ML; Start 09/12/16 at 11:00 Docosanol (Abreva) 1 applic BID PRN TOP COLD SORE Last administered on 06:19; Admin Dose 1 APPLIC; Start 09/12/16 at 12:30 Acetaminophen/ Hydrocodone Bitart ([place] (5/325)) 1 tab Q4 PRN PO PAIN Last administered on 09/14/16 03:23; Admin Dose 1 TAB; Start 09/13/16 at 13:00 Metoprolol Succinate (Toprol Xl) 50 mg DAILY PO Last administered on 09/14/16 10:11; Admin Dose 50 MG; Start 09/14/16 at 09:00 Docusate Sodium (Colace) 100 mg DAILY PRN PO CONSTIPATION; Start 09/13/16 at 15: 00 Metronidazole (Flagyl) 500 mg Q8 PO ; Start 09/13/16 at 22:00; Stop 09/20/16 at 09:00 YAMILE LARA MD Sep 14, 2016 11:36
--- NOTE | 2016-09-14 12:48 | CONS ---
Date/Time of Note Date/Time of Note DATE: 09/14/16 TIME: 12:46 Consult Date/Type/Reason Admit Date/Time Sep 08, 2016 at 18:41 Type of Consultation: cv Subjective pt c/o abdominal pain Objective Vital Signs Date Time Temp Pulse Resp B/P Pulse Ox O2 Delivery O2 Flow Rate FiO2 09/14/16 08:00 98.2 81 20 145/78 94 Nasal Cannula 3.0 Intake and Output 09/13/16 09/13/16 09/14/16 15:00 23:00 07:00 Intake Total 600 ml 360 ml Output Total 400 ml 200 ml 450 ml Balance 200 ml 160 ml -450 ml Results/Medications Result Diagram: 09/14/1662609/14/16 06 Results 24 hrs Laboratory Tests Test 09/14/16 06:27 Activated Partial Thromboplast Time 26.0 Anion Gap 14 Basophils # 0.0 Basophils % 0.0 Blood Morphology Comment Blood Urea Nitrogen 17 Calcium Level 8.4 Carbon Dioxide Level 27 Chloride Level 102 Creatinine 0.81 Eosinophils # 0.1 Eosinophils % 0.5 Glucose Level 97 Hematocrit 34.5 L Hemoglobin 11.6 L INR International Normalized Ratio 0.96 Lymphocytes # 1.9 Lymphocytes % 11.6 L Mean Corpuscular Hemoglobin 28.7 L Mean Corpuscular Hemoglobin Concent 33.6 Mean Corpuscular Volume 85.5 Mean Platelet Volume 7.6 Monocytes # 1.0 H Monocytes % 6.0 Neutrophils # 13.1 H Neutrophils % 81.9 H Nucleated Red Blood Cells # 0.0 Nucleated Red Blood Cells % 0.0 Platelet Count 461 H Potassium Level 4.2 Prothrombin Time 12.8 Prothrombin Time Ratio 1.0 Red Blood Count 4.03 L Red Cell Distribution Width 14.4 Sodium Level 139 White Blood Count 16.0 H Medications Current Medications Docusate Sodium (Colace) 100 mg BID PO ; Start 09/08/16 at 19:01; Status Future Hold Ondansetron HCl (Zofran Inj) 4 mg Q6H PRN IV NAUSEA AND/OR VOMITING; Start 09/08 at 19:01 Acetaminophen (Tylenol Tab) 650 mg Q6H PRN PO PAIN LEVEL 1-3 OR FEVER Last administered on 09/12/16t 22:10; Admin Dose 650 MG; Start 09/08/16 at 19:01 Ibuprofen (Motrin) 600 mg Q6H PRN PO PAIN LEVEL 1-3; Start 09/08/16 at 19:01 Enoxaparin Sodium (Lovenox) 40 mg DAILY@07 SC Last administered on 09/13/16 08: 16; Admin Dose 40 MG; Start 09/08/16 at 19:01; Status Future Hold Buspirone HCl (Buspar) 5 mg BID PO Last administered on 09/14/16 10:11; Admin Dose 5 MG; Start 09/08/16 at 19:01 Dorzolamide/ Timolol (Cosopt) 1 drop BID LEFT EYE Last administered on 10:10; Admin Dose 1 DROP; Start 09/08/16 at 19:01 Latanoprost (Xalatan) 1 drop DAILY LEFT EYE Last administered on 09/14/16 10:10 ; Admin Dose 1 DROP; Start 09/08/16 at 19:01 Lorazepam (Ativan) 0.5 mg HS PRN PO ANXIETY; Start 09/08/16 at 19:01 Salmeterol Xinafoate/ Fluticasone (Advair 250/50 Diskus) 1 inh BID INH Last administered on 09/14/16 10:10; Admin Dose 1 INH; Start 09/08/16 at 19:01 Tiotropium [place] (Spiriva) 1 inh DAILY INH Last administered on 09/13/16 09: 02; Admin Dose 1 INH; Start 09/08/16 at 19:01 Hydralazine HCl (Apresoline) 10 mg Q6H PRN IV SBP >170; Start 09/08/16 at 19:01 Senna (Senokot) 1 tab BID PO ; Start 09/08/16 at 19:01; Status Future Hold Polyethylene Glycol (Miralax) 17 gm DAILY GTB ; Start 09/08/16 at 19:01; Status Future Hold Sertraline HCl (Zoloft) 100 mg HS PO Last administered on 09/13/16 21:31; Admin Dose 100 MG; Start 09/08/16 at 19:01 Levofloxacin (Levaquin) 750 mg Q48H PO Last administered on 09/12/16 20:22; Admin Dose 750 MG; Start 09/08/16 at 21:00; Stop 09/14/16 at 23:59 Zolpidem Tartrate (Ambien) 10 mg HS PRN PO INSOMNIA Last administered on 21:31; Admin Dose 10 MG; Start 09/08/16 at 21:00 Hydrocortisone (Anusol-Hc Supp) 25 mg DAILY PRN [place] HEMORROID PAIN/ITCHING Last administered on 09/09/16 14:59; Admin Dose 25 MG; Start 09/09/16 at 11:00 Famotidine (Pepcid) 20 mg BID PO Last administered on 09/14/16 10:10; Admin Dose 20 MG; Start 09/09/16 at 21:00; Stop 10/03/16 at 20:59 Levothyroxine Sodium (Synthroid) 88 mcg DAILY@06 PO Last administered on 06:31; Admin Dose 88 MCG; Start 09/11/16 at 06:00 Guaifenesin/ Dextromethorphan (Robitussin Dm Liquid Cup) 5 ml Q4H PRN PO cough Last administered on 09/14/16 10:19; Admin Dose 5 ML; Start 09/12/16 at 11:00 Docosanol (Abreva) 1 applic BID PRN TOP COLD SORE Last administered on 06:19; Admin Dose 1 APPLIC; Start 09/12/16 at 12:30 Acetaminophen/ Hydrocodone Bitart ([place] (5/325)) 1 tab Q4 PRN PO PAIN Last administered on 09/14/16 03:23; Admin Dose 1 TAB; Start 09/13/16 at 13:00 Metoprolol Succinate (Toprol Xl) 50 mg DAILY PO Last administered on 09/14/16 10:11; Admin Dose 50 MG; Start 09/14/16 at 09:00 Docusate Sodium (Colace) 100 mg DAILY PRN PO CONSTIPATION; Start 09/13/16 at 15: 00 Metronidazole (Flagyl) 500 mg Q8 PO ; Start 09/13/16 at 22:00; Stop 09/20/16 at 09:00 Assessment/Plan Additional Assessment/Plan Rehab- Diffuse myopathy in addition to debility secondary to postsurgical recovery and respiratory distress. Hold therapy today due to abdominal workup cold sores- antviral, and abreva topically- improving GI- abd ct leukocytosis- w.u in progress Appendicitis, status post appendectomy. Respiratory distress secondary to congestive heart failure and chronic obstructive pulmonary disease exacerbations. Postoperative hypotension- improved Renal insufficiency. Hypertension. Hypothyroidism. Hypercholesterolemia. Glaucoma. Hemorrhoids. LAUREN MCLAUGHLIN MD Sep 14, 2016 12:48
[2016-09-14] MEDS ORDERED: LIDOCAINE 1% (MDV) 20 ML INJ ONE (13:50)
[2016-09-14] MEDS ORDERED: MIDAZOLAM 1 MG/ML 2 ML INJ ONE (14:29)
[2016-09-14] MEDS ORDERED: FENTAnyl 50 MCG/ML VIAL ONE (14:29)
--- NOTE | 2016-09-14 15:29 | RADRPT ---
PROCEDURE: CT guided pelvic abscess drainage procedure CLINICAL INDICATION: Pelvic abscess TECHNIQUE: Informed written consent was obtained. A time-out was performed. A preliminary wired music operator CT scan of the pelvis was performed. Markers were placed on the skin for localization. The overlyi ng skin of the left buttock was prepped and draped in the usual sterile fashion. Approximately 10 c c of lidocaine was injected locally for pain control. A 5-[place]kin[place] Yueh catheter was introduced into the fluid collection in the cul-de-sac. A wire was placed through the catheter, the tract was dilat ed, and a 10.2 [place] locking pigtail catheter was placed into the fluid collection without difficul ty. Approximately 2 cc of serosanguineous fluid was aspirated without difficulty and sent to the [facility] for further analysis. The patient tolerated procedure well. No complications occurred. Pos tprocedural CT scan revealed no complications. No significant hemorrhage or other abnormality was s een. COMPARISON: CT, 09/13/2016 FINDINGS: Successful percutaneous drainage of a pelvic abscess. Serosanguinous fluid was aspirated and sent to the laboratory for further analysis. IMPRESSION: Successful CT guided fluid collection drainage procedure. No complications occurred. RPTAT: QQ .Zack Gray MD, MD Date Time Electronically viewed and signed by .Zack Gray MD, on 09/14/2016 15:29 .R/
[2016-09-14] MEDS: LEVOFLOXACIN 750 MG TABLET PO SCH (21:33)
[2016-09-14] MEDS: SERTRALINE 100 MG TAB PO SCH (21:34)
[2016-09-14] MEDS: ZOLPIDEM 5 MG TAB PO PRN (21:34)
[2016-09-15] MEDS: metroNIDAZOLE 500 MG TAB PO SCH ×3 (04:43→22:02)
[2016-09-15] MEDS: LEVOTHYROXINE 88 MCG TAB PO SCH (04:43)
[2016-09-15] MEDS: HYDROCODONE/APAP (5/325) TAB PO PRN ×3 (04:43→22:02)
[2016-09-15] MEDS: DOCOSANOL 2 GM CREAM TOP PRN ×2 (04:50→09:13)
[2016-09-15 06:28] LABS: ADD SCAN DIFF NO
[2016-09-15 06:46] LABS: BASOPHILS % 0.3 % (0.0-2.0); EOSINOPHILS # 0.1 10^3/ul (0.0-0.5); EOSINOPHILS % 0.8 % (0.0-7.0); HEMATOCRIT 32.8 % (37.0-47.0); HEMOGLOBIN 10.3 g/dl (12.0-16.0); LYMPHOCYTES # 1.4 10^3/ul (0.8-2.9); LYMPHOCYTES % 11.7 % (15.0-51.0); MEAN CORPUSCULAR HEMOGLOBIN 27.3 pg (29.0-33.0); MEAN CORPUSCULAR HGB CONC 31.4 g/dl (32.0-37.0); MEAN PLATELET VOLUME 9.3 fl (7.4-10.4); NEUTROPHIL # 9.3 10^3/ul (1.6-7.5); NEUTROPHILS % 78.3 % (39.0-77.0); PLATELET COUNT 428 10^3/UL (140-415); RED BLOOD COUNT 3.77 10^6/ul (4.20-5.40); RED CELL DISTRIBUTION WIDTH 14.8 % (11.5-14.5); WHITE BLOOD COUNT 11.9 10^3/ul (4.8-10.8)
[2016-09-15 08:00] VITALS: PULSE 71
[2016-09-15] MEDS: SALMETEROL/FLUTICASONE 250/50 INHA INH SCH ×2 (09:10→20:24)
[2016-09-15] MEDS: LATANOPROST 0.005% 2.5 ML OPH LEFT EYE SCH (09:11)
[2016-09-15] MEDS: TIOTROPIUM 18 MCG CAPSULE INHA DEV INH SCH (09:11)
[2016-09-15] MEDS: BUSPIRONE 5 MG TAB PO SCH ×2 (09:12→20:24)
[2016-09-15] MEDS: FAMOTIDINE 20 MG TAB PO SCH ×2 (09:12→20:25)
[2016-09-15] MEDS: METOPROLOL (XL) 50 MG TAB PO SCH (09:12)
[2016-09-15] MEDS: DORZOLAMIDE/TIMOLOL 10 ML OPH LEFT EYE SCH ×2 (09:12→20:24)
[2016-09-15] MEDS ORDERED: VITAMIN A & D 5 GM OINT PACKET TOP ONE (09:26)
--- NOTE | 2016-09-15 11:46 | CONS ---
Date/Time of Note Date/Time of Note DATE: 09/15/16 TIME: 11:43 Assessment/Plan Assessment/Plan Additional Assessment/Plan Acute decompensated diastolic congestive heart failure, resolving Acute appendicitis status post surgery Preserved ejection fraction Hypertension -Patient with hypertension yesterday but this was after procedure. Blood pressure is better today. We will continue current antihypertensive medication regimen at the current time. CT of the abdo/pelvis performed did visualize part of the lungs with evidence of small pleural effusion. Would restart maintenance diuretics for the next few days. Consultation Date/Type/Reason Admit Date/Time Sep 08, 2016 at 18:41 Type of Consultation: cv 24 HR Interval Summary Free Text/Dictation Patient denies shortness of breath. Still with back and abdominal pain Exam/Review of Systems Vital Signs Vitals Vital Signs Date Time Temp Pulse Resp B/P Pulse Ox O2 Delivery O2 Flow Rate FiO2 09/14/16 22:06 98.1 70 20 123/67 95 09/14/16 20:00 Nasal Cannula 3.0 Intake and Output 09/14/16 09/14/16 09/15/16 15:00 23:00 07:00 Intake Total 400 ml Output Total 800 ml 10 ml Balance -800 ml -10 ml 400 ml Exam No apparent distress Constitutional: alert, oriented Head: normocephalic Neck: supple Respiratory: other (Coarse breath sounds bilaterally, no wheezing) Cardiovascular: other (S1-S2 heard), regular rate and rhythm Gastrointestinal: bowel sounds, non-tender, other (No guarding), soft Extremities: edema (trace) Results Result Diagram: 09/15/16 0607 09/14/16 0627 Results 24 hrs Laboratory Tests Test 09/15/16 06:07 Basophils # 0.0 Basophils % 0.3 Eosinophils # 0.1 Eosinophils % 0.8 Hematocrit 32.8 L Hemoglobin 10.3 L Lymphocytes # 1.4 Lymphocytes % 11.7 L Mean Corpuscular Hemoglobin 27.3 L Mean Corpuscular Hemoglobin Concent 31.4 L Mean Corpuscular Volume 87.0 Mean Platelet Volume 9.3 # Monocytes # 1.0 H Monocytes % 8.0 Neutrophils # 9.3 H Neutrophils % 78.3 H Nucleated Red Blood Cells # 0.0 Nucleated Red Blood Cells % 0.0 Platelet Count 428 H Red Blood Count 3.77 L Red Cell Distribution Width 14.8 H White Blood Count 11.9 #H Medications Medications Current Medications Docusate Sodium (Colace) 100 mg BID PO ; Start 09/08/16 at 19:01; Status Future Hold Ondansetron HCl (Zofran Inj) 4 mg Q6H PRN IV NAUSEA AND/OR VOMITING; Start 09/08 at 19:01 Acetaminophen (Tylenol Tab) 650 mg Q6H PRN PO PAIN LEVEL 1-3 OR FEVER Last administered on 09/12/16 22:10; Admin Dose 650 MG; Start 09/08/16 at 19:01 Ibuprofen (Motrin) 600 mg Q6H PRN PO PAIN LEVEL 1-3; Start 09/08/16 at 19:01 Enoxaparin Sodium (Lovenox) 40 mg DAILY@07 SC Last administered on 09/13/16 08: 16; Admin Dose 40 MG; Start 09/08/16 at 19:01; Status Future Hold Buspirone HCl (Buspar) 5 mg BID PO Last administered on 09/15/16 09:12; Admin Dose 5 MG; Start 09/08/16 at 19:01 Dorzolamide/ Timolol (Cosopt) 1 drop BID LEFT EYE Last administered on 09:12; Admin Dose 1 DROP; Start 09/08/16 at 19:01 Latanoprost (Xalatan) 1 drop DAILY LEFT EYE Last administered on 09/15/16 09: 11; Admin Dose 1 DROP; Start 09/08/16 at 19:01 Lorazepam (Ativan) 0.5 mg HS PRN PO ANXIETY; Start 09/08/16 at 19:01 Salmeterol Xinafoate/ Fluticasone (Advair 250/50 Diskus) 1 inh BID INH Last administered on 09/15/16 09:10; Admin Dose 1 INH; Start 09/08/16 at 19:01 Tiotropium [place] (Spiriva) 1 inh DAILY INH Last administered on 09/15/16 09: 11; Admin Dose 1 INH; Start 09/08/16 at 19:01 Hydralazine HCl (Apresoline) 10 mg Q6H PRN IV SBP >170; Start 09/08/16 at 19:01 Senna (Senokot) 1 tab BID PO ; Start 09/08/16 at 19:01; Status Future Hold Polyethylene Glycol (Miralax) 17 gm DAILY GTB ; Start 09/08/16 at 19:01; Status Future Hold Sertraline HCl (Zoloft) 100 mg HS PO Last administered on 09/14/16 21:34; Admin Dose 100 MG; Start 09/08/16 at 19:01 Zolpidem Tartrate (Ambien) 10 mg HS PRN PO INSOMNIA Last administered on 21:34; Admin Dose 10 MG; Start 09/08/16 at 21:00 Hydrocortisone (Anusol-Hc Supp) 25 mg DAILY PRN [place] HEMORROID PAIN/ITCHING Last administered on 09/09/16 14:59; Admin Dose 25 MG; Start 09/09/16 at 11:00 Famotidine (Pepcid) 20 mg BID PO Last administered on 09/15/16 09:12; Admin Dose 20 MG; Start 09/09/16 at 21:00; Stop 10/03/16 at 20:59 Levothyroxine Sodium (Synthroid) 88 mcg DAILY@06 PO Last administered on 04:43; Admin Dose 88 MCG; Start 09/11/16 at 06:00 Guaifenesin/ Dextromethorphan (Robitussin Dm Liquid Cup) 5 ml Q4H PRN PO cough Last administered on 09/14/16 10:19; Admin Dose 5 ML; Start 09/12/16 at 11:00 Docosanol (Abreva) 1 applic BID PRN TOP COLD SORE Last administered on 09:13; Admin Dose 1 APPLIC; Start 09/12/16 at 12:30 Acetaminophen/ Hydrocodone Bitart ([place] (5/325)) 1 tab Q4 PRN PO PAIN Last administered on 09/15/16 04:43; Admin Dose 1 TAB; Start 09/13/16 at 13:00 Metoprolol Succinate (Toprol Xl) 50 mg DAILY PO Last administered on 09/15/16 09:12; Admin Dose 50 MG; Start 09/14/16 at 09:00 Docusate Sodium (Colace) 100 mg DAILY PRN PO CONSTIPATION; Start 09/13/16 at 15: 00 Metronidazole (Flagyl) 500 mg Q8 PO Last administered on 2/10/17at 04:43; Admin Dose 500 MG; Start 09/13/16 at 22:00; Stop 09/20/16 at 09:00 Furosemide (Lasix) 20 mg DAILY PO ; Start 09/16/16 at 09:00; Stop 09/19/16 at 08 :59; Status Taco Velasquez DO Sep 15, 2016 11:46
--- NOTE | 2016-09-15 12:15 | CONS ---
Date/Time of Note Date/Time of Note DATE: 09/15/16 TIME: 12:13 Consult Date/Type/Reason Admit Date/Time Sep 08, 2016 at 18:41 Type of Consultation: cv Subjective Still with some abd discomfort, but improved Objective sba ambulation Vital Signs Date Time Temp Pulse Resp B/P Pulse Ox O2 Delivery O2 Flow Rate FiO2 09/14/16 22:06 98.1 70 20 123/67 95 09/14/16 20:00 Nasal Cannula 3.0 Intake and Output 09/14/16 09/14/16 09/15/16 15:00 23:00 07:00 Intake Total 400 ml Output Total 800 ml 10 ml Balance -800 ml -10 ml 400 ml Results/Medications Result Diagram: 09/15/1660609/14/16626 Results 24 hrs Laboratory Tests Test 09/15/16 06:07 Basophils # 0.0 Basophils % 0.3 Eosinophils # 0.1 Eosinophils % 0.8 Hematocrit 32.8 L Hemoglobin 10.3 L Lymphocytes # 1.4 Lymphocytes % 11.7 L Mean Corpuscular Hemoglobin 27.3 L Mean Corpuscular Hemoglobin Concent 31.4 L Mean Corpuscular Volume 87.0 Mean Platelet Volume 9.3 # Monocytes # 1.0 H Monocytes % 8.0 Neutrophils # 9.3 H Neutrophils % 78.3 H Nucleated Red Blood Cells # 0.0 Nucleated Red Blood Cells % 0.0 Platelet Count 428 H Red Blood Count 3.77 L Red Cell Distribution Width 14.8 H White Blood Count 11.9 #H Medications Current Medications Docusate Sodium (Colace) 100 mg BID PO ; Start 09/08/16 at 19:01; Status Future Hold Ondansetron HCl (Zofran Inj) 4 mg Q6H PRN IV NAUSEA AND/OR VOMITING; Start 09/08 at 19:01 Acetaminophen (Tylenol Tab) 650 mg Q6H PRN PO PAIN LEVEL 1-3 OR FEVER Last administered on 09/12/16 22:10; Admin Dose 650 MG; Start 09/08/16 at 19:01 Ibuprofen (Motrin) 600 mg Q6H PRN PO PAIN LEVEL 1-3; Start 09/08/16 at 19:01 Enoxaparin Sodium (Lovenox) 40 mg DAILY@07 SC Last administered on 09/13/16 08: 16; Admin Dose 40 MG; Start 09/08/16 at 19:01; Status Future Hold Buspirone HCl (Buspar) 5 mg BID PO Last administered on 09/15/16 09:12; Admin Dose 5 MG; Start 09/08/16 at 19:01 Dorzolamide/ Timolol (Cosopt) 1 drop BID LEFT EYE Last administered on 09:12; Admin Dose 1 DROP; Start 09/08/16 at 19:01 Latanoprost (Xalatan) 1 drop DAILY LEFT EYE Last administered on 09/15/16 09: 11; Admin Dose 1 DROP; Start 09/08/16 at 19:01 Lorazepam (Ativan) 0.5 mg HS PRN PO ANXIETY; Start 09/08/16 at 19:01 Salmeterol Xinafoate/ Fluticasone (Advair 250/50 Diskus) 1 inh BID INH Last administered on 09/15/16 09:10; Admin Dose 1 INH; Start 09/08/16 at 19:01 Tiotropium [place] (Spiriva) 1 inh DAILY INH Last administered on 09/15/16 09: 11; Admin Dose 1 INH; Start 09/08/16 at 19:01 Hydralazine HCl (Apresoline) 10 mg Q6H PRN IV SBP >170; Start 09/08/16 at 19:01 Senna (Senokot) 1 tab BID PO ; Start 09/08/16 at 19:01; Status Future Hold Polyethylene Glycol (Miralax) 17 gm DAILY GTB ; Start 09/08/16 at 19:01; Status Future Hold Sertraline HCl (Zoloft) 100 mg HS PO Last administered on 09/14/16 21:34; Admin Dose 100 MG; Start 09/08/16 at 19:01 Zolpidem Tartrate (Ambien) 10 mg HS PRN PO INSOMNIA Last administered on 21:34; Admin Dose 10 MG; Start 09/08/16 at 21:00 Hydrocortisone (Anusol-Hc Supp) 25 mg DAILY PRN [place] HEMORROID PAIN/ITCHING Last administered on 09/09/16 14:59; Admin Dose 25 MG; Start 09/09/16 at 11:00 Famotidine (Pepcid) 20 mg BID PO Last administered on 09/15/16 09:12; Admin Dose 20 MG; Start 09/09/16 at 21:00; Stop 10/03/16 at 20:59 Levothyroxine Sodium (Synthroid) 88 mcg DAILY@06 PO Last administered on 04:43; Admin Dose 88 MCG; Start 09/11/16 at 06:00 Guaifenesin/ Dextromethorphan (Robitussin Dm Liquid Cup) 5 ml Q4H PRN PO cough Last administered on 09/14/16 10:19; Admin Dose 5 ML; Start 09/12/16 at 11:00 Docosanol (Abreva) 1 applic BID PRN TOP COLD SORE Last administered on 09:13; Admin Dose 1 APPLIC; Start 09/12/16 at 12:30 Acetaminophen/ Hydrocodone Bitart ([place] (5/325)) 1 tab Q4 PRN PO PAIN Last administered on 09/15/16 04:43; Admin Dose 1 TAB; Start 09/13/16 at 13:00 Metoprolol Succinate (Toprol Xl) 50 mg DAILY PO Last administered on 09/15/16 09:12; Admin Dose 50 MG; Start 09/14/16 at 09:00 Docusate Sodium (Colace) 100 mg DAILY PRN PO CONSTIPATION; Start 09/13/16 at 15: 00 Metronidazole (Flagyl) 500 mg Q8 PO Last administered on 09/15/16 04:43; Admin Dose 500 MG; Start 09/13/16 at 22:00; Stop 09/20/16 at 09:00 Furosemide (Lasix) 20 mg DAILY@06 PO ; Start 09/16/16 at 06:00 Assessment/Plan Additional Assessment/Plan Rehab- Diffuse myopathy in addition to debility secondary to postsurgical recovery and respiratory distress. Therapy resumed today, patient tolerating exercises cold sores- antviral, and abreva topically- improving GI- status post appendectomy, and now with drain in place for abscess Respiratory distress secondary to congestive heart failure and chronic obstructive pulmonary disease exacerbations. Postoperative hypotension- improved Renal insufficiency. Hypertension. Hypothyroidism. Hypercholesterolemia. Glaucoma. Hemorrhoids. LAUREN MCLAUGHLIN MD Sep 15, 2016 12:15
--- NOTE | 2016-09-15 13:18 | PN ---
Date/Time of Note Date/Time of Note DATE: 09/15/16 TIME: 13:17 Assessment/Plan VTE Prophylaxis VTE Prophylaxis Intervention: SCD's Lines/Catheters IV [facility] Saline Lock Assessment/Plan Chief Complaint/Hosp Course Assessment/Plan 1. Abdominal pain With CAT scan finding of small amount of free fluid in the lower pelvis with a second encapsulated fluid collection suspicious for a small pelvic abscess. General surgery has been consulted, continue IV antibiotics. Follow-up general surgery recommendations Status post CT-guided drainage by interventional radiologist 2. 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 COPD (chronic obstructive pulmonary disease) Continue breathing treatment, oxygen as needed 4. Essential hypertension Well-controlled on medical management 5. Hyperlipidemia Continue statin 6. Acquired autoimmune hypothyroidism Continue levothyroxine We will continue monitor patient closely for recommendation management treatment as clinical course Problems: Subjective 24 Hr Interval Summary Free Text/Dictation Minimal improvement with abdominal discomfort Tolerating oral intake Status post drainage of abscess on 09/14/2016 Exam/Review of Systems Vital Signs Vitals Vital Signs Date Time Temp Pulse Resp B/P Pulse Ox O2 Delivery O2 Flow Rate FiO2 09/14/16 22:06 98.1 70 20 123/67 95 09/14/16 20:00 Nasal Cannula 3.0 Intake and Output 09/14/16 09/14/16 09/15/16 15:00 23:00 07:00 Intake Total 400 ml Output Total 800 ml 10 ml Balance -800 ml -10 ml 400 ml Exam General: The patient is well-developed, Not in acute distress. HEENT: Atraumatic, normocephalic. The pupils are equal and round . Neck: Supple with full range of motion. Chest: Normal expansion of the thorax during inspiration Lungs: Clear to auscultation bilaterally Heart: Normal S1-S2, Regular rhythm and rate. Abdomen: Soft , minimal abdominal tenderness, not distended , bowel sounds are present. Extremities: Normal to inspection, no edema no cyanosis Neurologic: Normal mental status,The patient is awake, alert and oriented . Results Result Diagram: 09/15/16 0607 09/14/16 0627 Results 24 hrs Laboratory Tests Test 09/15/16 06:07 Basophils # 0.0 Basophils % 0.3 Eosinophils # 0.1 Eosinophils % 0.8 Hematocrit 32.8 L Hemoglobin 10.3 L Lymphocytes # 1.4 Lymphocytes % 11.7 L Mean Corpuscular Hemoglobin 27.3 L Mean Corpuscular Hemoglobin Concent 31.4 L Mean Corpuscular Volume 87.0 Mean Platelet Volume 9.3 # Monocytes # 1.0 H Monocytes % 8.0 Neutrophils # 9.3 H Neutrophils % 78.3 H Nucleated Red Blood Cells # 0.0 Nucleated Red Blood Cells % 0.0 Platelet Count 428 H Red Blood Count 3.77 L Red Cell Distribution Width 14.8 H White Blood Count 11.9 #H Medications Medications Current Medications Docusate Sodium (Colace) 100 mg BID PO ; Start 09/08/16 at 19:01; Status Future Hold Ondansetron HCl (Zofran Inj) 4 mg Q6H PRN IV NAUSEA AND/OR VOMITING; Start 09/08 at 19:01 Acetaminophen (Tylenol Tab) 650 mg Q6H PRN PO PAIN LEVEL 1-3 OR FEVER Last administered on 09/12/16 22:10; Admin Dose 650 MG; Start 09/08/16 at 19:01 Ibuprofen (Motrin) 600 mg Q6H PRN PO PAIN LEVEL 1-3; Start 09/08/16 at 19:01 Enoxaparin Sodium (Lovenox) 40 mg DAILY@07 SC Last administered on 09/13/16 08: 16; Admin Dose 40 MG; Start 09/08/16 at 19:01; Status Future Hold Buspirone HCl (Buspar) 5 mg BID PO Last administered on 09/15/16 09:12; Admin Dose 5 MG; Start 09/08/16 at 19:01 Dorzolamide/ Timolol (Cosopt) 1 drop BID LEFT EYE Last administered on 09:12; Admin Dose 1 DROP; Start 09/08/16 at 19:01 Latanoprost (Xalatan) 1 drop DAILY LEFT EYE Last administered on 09/15/16 09: 11; Admin Dose 1 DROP; Start 09/08/16 at 19:01 Lorazepam (Ativan) 0.5 mg HS PRN PO ANXIETY; Start 09/08/16 at 19:01 Salmeterol Xinafoate/ Fluticasone (Advair 250/50 Diskus) 1 inh BID INH Last administered on 09/15/16 09:10; Admin Dose 1 INH; Start 09/08/16 at 19:01 Tiotropium [place] (Spiriva) 1 inh DAILY INH Last administered on 09/15/16 09: 11; Admin Dose 1 INH; Start 09/08/16 at 19:01 Hydralazine HCl (Apresoline) 10 mg Q6H PRN IV SBP >170; Start 09/08/16 at 19:01 Senna (Senokot) 1 tab BID PO ; Start 09/08/16 at 19:01; Status Future Hold Polyethylene Glycol (Miralax) 17 gm DAILY GTB ; Start 09/08/16 at 19:01; Status Future Hold Sertraline HCl (Zoloft) 100 mg HS PO Last administered on 09/14/16 21:34; Admin Dose 100 MG; Start 09/08/16 at 19:01 Zolpidem Tartrate (Ambien) 10 mg HS PRN PO INSOMNIA Last administered on 21:34; Admin Dose 10 MG; Start 09/08/16 at 21:00 Hydrocortisone (Anusol-Hc Supp) 25 mg DAILY PRN [place] HEMORROID PAIN/ITCHING Last administered on 09/09/16 14:59; Admin Dose 25 MG; Start 09/09/16 at 11:00 Famotidine (Pepcid) 20 mg BID PO Last administered on 09/15/16 09:12; Admin Dose 20 MG; Start 09/09/16 at 21:00; Stop 10/03/16 at 20:59 Levothyroxine Sodium (Synthroid) 88 mcg DAILY@06 PO Last administered on 04:43; Admin Dose 88 MCG; Start 09/11/16 at 06:00 Guaifenesin/ Dextromethorphan (Robitussin Dm Liquid Cup) 5 ml Q4H PRN PO cough Last administered on 09/14/16 10:19; Admin Dose 5 ML; Start 09/12/16 at 11:00 Docosanol (Abreva) 1 applic BID PRN TOP COLD SORE Last administered on 09:13; Admin Dose 1 APPLIC; Start 09/12/16 at 12:30 Acetaminophen/ Hydrocodone Bitart ([place] (5/325)) 1 tab Q4 PRN PO PAIN Last administered on 09/15/16 04:43; Admin Dose 1 TAB; Start 09/13/16 at 13:00 Metoprolol Succinate (Toprol Xl) 50 mg DAILY PO Last administered on 09/15/16 09:12; Admin Dose 50 MG; Start 09/14/16 at 09:00 Docusate Sodium (Colace) 100 mg DAILY PRN PO CONSTIPATION; Start 09/13/16 at 15: 00 Metronidazole (Flagyl) 500 mg Q8 PO Last administered on 09/15/16 04:43; Admin Dose 500 MG; Start 09/13/16 at 22:00; Stop 09/20/16 at 09:00 Furosemide (Lasix) 20 mg DAILY@06 PO ; Start 09/16/16 at 06:00 YAMILE LARA MD Sep 15, 2016 13:18
--- NOTE | 2016-09-15 17:26 | PN ---
DATE: 09/15/2016 SUBJECTIVE: Ms. Aguila is status post a laparoscopic appendectomy. She is postoperative day 10. She is feeling much better. Her tenesmus is resolving. OBJECTIVE: VITAL SIGNS: She is afebrile. Vital signs stable. ABDOMEN: Soft, nontender, nondistended. LABORATORY DATA: Today reveal a white count of 12, hematocrit 33 and platelets of 420. She did hav e a percutaneous drainage of her abscess yesterday. ASSESSMENT AND PLAN: Ms. Aguila is an 86-year-old female with a resolving tenesmus after perforat ed appendicitis. 1. Her C. diff was not sent as she had formed stool. 2. She is feeling much better after percutaneous drainage. 3. Okay for discharge per surgical perspective. 4. Would not recommend colonoscopy if her tenesmus completely resolves over the weekend. Dictated By: TRISTAN MYLES/NTS Conf#: [id number] DID#: [id number]
[2016-09-15] MEDS: SERTRALINE 100 MG TAB PO SCH (20:25)
[2016-09-15 20:31] VITALS: BP 143/65; RESP 18
[2016-09-15] MEDS: ZOLPIDEM 5 MG TAB PO PRN (22:02)
[2016-09-15] MEDS: GUAIFENESIN/DM 5ML CUP PO PRN (22:10)
[2016-09-16] MEDS: HYDROCODONE/APAP (5/325) TAB PO PRN ×3 (03:53→21:57)
[2016-09-16] MEDS: FUROSEMIDE 20 MG TAB PO SCH (06:00)
[2016-09-16] MEDS: LEVOTHYROXINE 88 MCG TAB PO SCH (06:02)
[2016-09-16] MEDS: metroNIDAZOLE 500 MG TAB PO SCH ×3 (06:03→21:57)
[2016-09-16 07:31] LABS: ADD SCAN DIFF NO
[2016-09-16 07:42] LABS: POTASSIUM 4.3 mmol/L (3.5-5.1)
[2016-09-16 07:44] LABS: CREATININE 0.95 mg/dl (0.44-1.00)
[2016-09-16 07:45] LABS: CALCIUM 8.8 mg/dl (8.4-10.2)
[2016-09-16 07:54] LABS: BASOPHILS % 0.3 % (0.0-2.0); EOSINOPHILS # 0.1 10^3/ul (0.0-0.5); EOSINOPHILS % 0.9 % (0.0-7.0); HEMOGLOBIN 10.5 g/dl (12.0-16.0); LYMPHOCYTES # 1.6 10^3/ul (0.8-2.9); LYMPHOCYTES % 13.9 % (15.0-51.0); MEAN CORPUSCULAR HEMOGLOBIN 28.3 pg (29.0-33.0); MEAN CORPUSCULAR HGB CONC 32.9 g/dl (32.0-37.0); MEAN CORPUSCULAR VOLUME 86.1 fl (82.0-101.0); MEAN PLATELET VOLUME 7.6 fl (7.4-10.4); MONOCYTE # 1.2 10^3/ul (0.3-0.9); MONOCYTES % 10.4 % (0.0-11.0); NEUTROPHIL # 8.7 10^3/ul (1.6-7.5); NEUTROPHILS % 74.5 % (39.0-77.0); PLATELET COUNT 520 10^3/UL (140-440); RED BLOOD COUNT 3.72 10^6/ul (4.20-5.40); RED CELL DISTRIBUTION WIDTH 14.6 % (11.5-14.5); WHITE BLOOD COUNT 11.7 10^3/ul (4.8-10.8)
[2016-09-16 08:15] VITALS: BP 121/60; PULSE 68; RESP 20
[2016-09-16] MEDS: LATANOPROST 0.005% 2.5 ML OPH LEFT EYE SCH (09:00)
[2016-09-16] MEDS: SALMETEROL/FLUTICASONE 250/50 INHA INH SCH ×2 (09:19→20:28)
[2016-09-16] MEDS: DORZOLAMIDE/TIMOLOL 10 ML OPH LEFT EYE SCH ×2 (09:19→21:00)
--- NOTE | 2016-09-16 09:24 | PN ---
Date/Time of Note Date/Time of Note DATE: 09/16/16 TIME: 09:23 Assessment/Plan VTE Prophylaxis VTE Prophylaxis Intervention: SCD's Lines/Catheters IV Catheter Type (from Nrs): Saline Lock Assessment/Plan Chief Complaint/Hosp Course Assessment/Plan 1. Abdominal pain With CAT scan finding of small amount of free fluid in the lower pelvis with a second encapsulated fluid collection suspicious for a small pelvic abscess. General surgery and helper marble finisher has been consulted, continue IV antibiotics. Follow-up general surgery recommendations Status post CT-guided drainage by interventional radiologist 2. 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 COPD (chronic obstructive pulmonary disease) Continue breathing treatment, oxygen as needed 4. Essential hypertension Well-controlled on medical management 5. Hyperlipidemia Continue statin 6. Acquired autoimmune hypothyroidism Continue levothyroxine, follow-up free T3 and T4 We will continue monitor patient closely for recommendation management treatment as clinical course Problems: Subjective 24 Hr Interval Summary Free Text/Dictation Patient continues to complain of having off-and-on abdominal discomfort and constipation Denies of any chest pain or shortness of breath No nausea vomiting and diarrhea Exam/Review of Systems Vital Signs Vitals Vital Signs Date Time Temp Pulse Resp B/P Pulse Ox O2 Delivery O2 Flow Rate FiO2 09/16/16 08:15 98.3 68 20 121/60 94 Nasal Cannula 2.0 Intake and Output 09/15/16 09/15/16 09/16/16 15:00 23:00 07:00 Intake Total 240 ml Output Total 400 ml Balance -160 ml Exam General: The patient is well-developed, Not in acute distress. HEENT: Atraumatic, normocephalic. The pupils are equal and round . Neck: Supple with full range of motion. Chest: Normal expansion of the thorax during inspiration Lungs: Clear to auscultation bilaterally Heart: Normal S1-S2, Regular rhythm and rate. Abdomen: Soft , nontender, nondistended , bowel sounds are present. Surgical site is dry and clean Extremities: Normal to inspection, no edema no cyanosis Neurologic: Normal mental status,The patient is awake, alert and oriented . Results Result Diagram: 09/16/16 0653 09/16/16 0653 Results 24 hrs Laboratory Tests Test 09/16/16 06:53 Anion Gap 11 Basophils # 0.0 Basophils % 0.3 Blood Morphology Comment Blood Urea Nitrogen 15 Calcium Level 8.8 Carbon Dioxide Level 29 Chloride Level 102 Creatinine 0.95 Eosinophils # 0.1 Eosinophils % 0.9 Glucose Level 106 Hematocrit 32.0 L Hemoglobin 10.5 L Lymphocytes # 1.6 Lymphocytes % 13.9 L Mean Corpuscular Hemoglobin 28.3 L Mean Corpuscular Hemoglobin Concent 32.9 Mean Corpuscular Volume 86.1 Mean Platelet Volume 7.6 Monocytes # 1.2 H Monocytes % 10.4 Neutrophils # 8.7 H Neutrophils % 74.5 Nucleated Red Blood Cells # 0.0 Nucleated Red Blood Cells % 0.0 Platelet Count 520 H Potassium Level 4.3 Red Blood Count 3.72 L Red Cell Distribution Width 14.6 H Sodium Level 138 White Blood Count 11.7 H Medications Medications Current Medications Docusate Sodium (Colace) 100 mg BID PO ; Start 09/08/16 at 19:01; Status Future Hold Ondansetron HCl (Zofran Inj) 4 mg Q6H PRN IV NAUSEA AND/OR VOMITING; Start 09/08 at 19:01 Acetaminophen (Tylenol Tab) 650 mg Q6H PRN PO PAIN LEVEL 1-3 OR FEVER Last administered on 09/12/16 22:10; Admin Dose 650 MG; Start 09/08/16 at 19:01 Ibuprofen (Motrin) 600 mg Q6H PRN PO PAIN LEVEL 1-3; Start 09/08/16 at 19:01 Enoxaparin Sodium (Lovenox) 40 mg DAILY@07 SC Last administered on 09/13/16 08: 16; Admin Dose 40 MG; Start 09/08/16 at 19:01; Status Future Hold Buspirone HCl (Buspar) 5 mg BID PO Last administered on 09/15/16 20:24; Admin Dose 5 MG; Start 09/08/16 at 19:01 Dorzolamide/ Timolol (Cosopt) 1 drop BID LEFT EYE Last administered on 20:24; Admin Dose 1 DROP; Start 09/08/16 at 19:01 Latanoprost (Xalatan) 1 drop DAILY LEFT EYE Last administered on 09/15/16 09: 11; Admin Dose 1 DROP; Start 09/08/16 at 19:01 Lorazepam (Ativan) 0.5 mg HS PRN PO ANXIETY; Start 09/08/16 at 19:01 Salmeterol Xinafoate/ Fluticasone (Advair 250/50 Diskus) 1 inh BID INH Last administered on 09/15/16 20:24; Admin Dose 1 INH; Start 09/08/16 at 19:01 Tiotropium [place] (Spiriva) 1 inh DAILY INH Last administered on 09/15/16 09: 11; Admin Dose 1 INH; Start 09/08/16 at 19:01 Hydralazine HCl (Apresoline) 10 mg Q6H PRN IV SBP >170; Start 09/08/16 at 19:01 Senna (Senokot) 1 tab BID PO ; Start 09/08/16 at 19:01; Status Future Hold Polyethylene Glycol (Miralax) 17 gm DAILY GTB ; Start 09/08/16 at 19:01; Status Future Hold Sertraline HCl (Zoloft) 100 mg HS PO Last administered on 09/15/16 20:25; Admin Dose 100 MG; Start 09/08/16 at 19:01 Zolpidem Tartrate (Ambien) 10 mg HS PRN PO INSOMNIA Last administered on 22:02; Admin Dose 10 MG; Start 09/08/16 at 21:00 Hydrocortisone (Anusol-Hc Supp) 25 mg DAILY PRN [place] HEMORROID PAIN/ITCHING Last administered on 09/09/16 14:59; Admin Dose 25 MG; Start 09/09/16 at 11:00 Famotidine (Pepcid) 20 mg BID PO Last administered on 09/15/16 20:25; Admin Dose 20 MG; Start 09/09/16 at 21:00; Stop 10/03/16 at 20:59 Levothyroxine Sodium (Synthroid) 88 mcg DAILY@06 PO Last administered on 06:02; Admin Dose 88 MCG; Start 09/11/16 at 06:00 Guaifenesin/ Dextromethorphan (Robitussin Dm Liquid Cup) 5 ml Q4H PRN PO cough Last administered on 09/15/16 22:10; Admin Dose 5 ML; Start 09/12/16 at 11:00 Docosanol (Abreva) 1 applic BID PRN TOP COLD SORE Last administered on 09:13; Admin Dose 1 APPLIC; Start 09/12/16 at 12:30 Acetaminophen/ Hydrocodone Bitart ([place] (5/325)) 1 tab Q4 PRN PO PAIN Last administered on 09/16/16 03:53; Admin Dose 1 TAB; Start 09/13/16 at 13:00 Metoprolol Succinate (Toprol Xl) 50 mg DAILY PO Last administered on 09/15/16 09:12; Admin Dose 50 MG; Start 09/14/16 at 09:00 Docusate Sodium (Colace) 100 mg DAILY PRN PO CONSTIPATION; Start 09/13/16 at 15: 00 Metronidazole (Flagyl) 500 mg Q8 PO Last administered on 09/16/16 06:03; Admin Dose 500 MG; Start 09/13/16 at 22:00; Stop 09/20/16 at 09:00 Furosemide (Lasix) 20 mg DAILY@06 PO ; Start 09/16/16 at 06:00 YAIMLE LARA MD Sep 16, 2016 09:24
[2016-09-16] MEDS: METOPROLOL (XL) 50 MG TAB PO SCH (09:29)
[2016-09-16] MEDS ORDERED: DOCUSATE SODIUM 100 MG CAP PO PRN (09:30)
[2016-09-16] MEDS: TIOTROPIUM 18 MCG CAPSULE INHA DEV INH SCH (09:37)
[2016-09-16] MEDS: BUSPIRONE 5 MG TAB PO SCH ×2 (09:37→20:28)
--- NOTE | 2016-09-16 13:53 | PN ---
Date/Time of Note Date/Time of Note DATE: 09/16/16 TIME: 13:40 Assessment/Plan VTE Prophylaxis VTE Prophylaxis Intervention: LMWH Lines/Catheters IV Catheter Type (from Nrs): Saline Lock Assessment/Plan Assessment/Plan 1. Debility in the setting of complicated hospitalization with impaired mobility /gait/ADLs. Continue PT/OT. Min assist for bed mobility and transfers. 2. HSV-1.S/p course of valacyclovir per internal medicine. 3. Appendicitis status post appendectomy, with persistent abdominal pain and CT suspicious for pelvic abscess, now with drain in place. Surgery and GI medically managing. Continue to closely monitor clinically. 4. Acute diastolic CHF. Continue management per cardiology. 5. COPD. Continue breathing treatments and supplemental 02 as needed. 6. Hypertension. BP controlled. Continue current antihypertensive medications. 7. Hypothyroidism. Continue levothyroxine. 8. Hyperlipidemia. 9. Glaucoma. Continue eye drops. 10. History of hemorrhoids. Subjective 24 Hr Interval Summary Free Text/Dictation Rehab progress note Subjective: Reports continued abdominal discomfort though she is able to tolerate more PO. Feels constipated, last bowel movement 2 days ago. Nursing reports no fecal impaction on exam. ROS: Denies chest pain, no shortness of breath, no vomiting, no chills, no dysuria. Exam/Review of Systems Vital Signs Vitals Vital Signs Date Time Temp Pulse Resp B/P Pulse Ox O2 Delivery O2 Flow Rate FiO2 09/16/16 08:15 98.3 68 20 121/60 94 Nasal Cannula 2.0 Intake and Output 09/15/16 09/15/16 09/16/16 15:00 23:00 07:00 Intake Total 240 ml Output Total 400 ml Balance -160 ml Exam General: Awake, alert, no acute distress CV: Regular rate, s1s2 Lungs: Symmetrical air entry bilaterally, no wheezing Abdomen soft, nontender, bowel sounds present, drain in place Extremities without cyanosis, no edema Neuro: Moves all extremities symmetrically with antigravity strength. Follows simple commands. Results Result Diagram: 09/16/16 0653 09/16/16 0653 Results 24 hrs Laboratory Tests Test 09/16/16 06:53 Anion Gap 11 Basophils # 0.0 Basophils % 0.3 Blood Morphology Comment Blood Urea Nitrogen Calcium Level 8.8 Carbon Dioxide Level 29 Chloride Level 102 Creatinine 0.95 Eosinophils # 0.1 Eosinophils % 0.9 Glucose Level 106 Hematocrit 32.0 L Hemoglobin 10.5 L Lymphocytes # 1.6 Lymphocytes % 13.9 L Mean Corpuscular Hemoglobin 28.3 L Mean Corpuscular Hemoglobin Concent 32.9 Mean Corpuscular Volume 86.1 Mean Platelet Volume 7.6 Monocytes # 1.2 H Monocytes % 10.4 Neutrophils # 8.7 H Neutrophils % 74.5 Nucleated Red Blood Cells # 0.0 Nucleated Red Blood Cells % 0.0 Platelet Count 520 H Potassium Level 4.3 Red Blood Count 3.72 L Red Cell Distribution Width 14.6 H Sodium Level 138 White Blood Count 11.7 H Medications Medications Current Medications Docusate Sodium (Colace) 100 mg BID PO ; Start 09/08/16 at 19:01; Status Future Hold Ondansetron HCl (Zofran Inj) 4 mg Q6H PRN IV NAUSEA AND/OR VOMITING; Start 09/08 at 19:01 Acetaminophen (Tylenol Tab) 650 mg Q6H PRN PO PAIN LEVEL 1-3 OR FEVER Last administered on 09/12/16 22:10; Admin Dose 650 MG; Start 09/08/16 at 19:01 Buspirone HCl (Buspar) 5 mg BID PO Last administered on 09/16/16 09:37; Admin Dose 5 MG; Start 09/08/16 at 19:01 Dorzolamide/ Timolol (Cosopt) 1 drop BID LEFT EYE Last administered on 09:19; Admin Dose 1 DROP; Start 09/08/16 at 19:01 Latanoprost (Xalatan) 1 drop DAILY LEFT EYE Last administered on 09/15/16 09: 11; Admin Dose 1 DROP; Start 09/08/16 at 19:01 Lorazepam (Ativan) 0.5 mg HS PRN PO ANXIETY; Start 09/08/16 at 19:01 Salmeterol Xinafoate/ Fluticasone (Advair 250/50 Diskus) 1 inh BID INH Last administered on 09/16/16 09:19; Admin Dose 1 INH; Start 09/08/16 at 19:01 Tiotropium [place] (Spiriva) 1 inh DAILY INH Last administered on 09/16/16 09: 37; Admin Dose 1 INH; Start 09/08/16 at 19:01 Hydralazine HCl (Apresoline) 10 mg Q6H PRN IV SBP >170; Start 09/08/16 at 19:01 Senna (Senokot) 1 tab BID PO ; Start 09/08/16 at 19:01; Status Future Hold Polyethylene Glycol (Miralax) 17 gm DAILY GTB ; Start 09/08/16 at 19:01; Status Future Hold Sertraline HCl (Zoloft) 100 mg HS PO Last administered on 09/15/16 20:25; Admin Dose 100 MG; Start 09/08/16 at 19:01 Zolpidem Tartrate (Ambien) 10 mg HS PRN PO INSOMNIA Last administered on 22:02; Admin Dose 10 MG; Start 09/08/16 at 21:00 Hydrocortisone (Anusol-Hc Supp) 25 mg DAILY PRN [place] HEMORROID PAIN/ITCHING Last administered on 09/09/16 14:59; Admin Dose 25 MG; Start 09/09/16 at 11:00 Levothyroxine Sodium (Synthroid) 88 mcg DAILY@06 PO Last administered on 06:02; Admin Dose 88 MCG; Start 09/11/16 at 06:00 Docosanol (Abreva) 1 applic BID PRN TOP COLD SORE Last administered on 09:13; Admin Dose 1 APPLIC; Start 09/12/16 at 12:30 Acetaminophen/ Hydrocodone Bitart ([place] (5/325)) 1 tab Q4 PRN PO PAIN Last administered on 09/16/16 03:53; Admin Dose 1 TAB; Start 09/13/16 at 13:00 Metoprolol Succinate (Toprol Xl) 50 mg DAILY PO Last administered on 09/16/16 09:29; Admin Dose 50 MG; Start 09/14/16 at 09:00 Docusate Sodium (Colace) 100 mg DAILY PRN PO CONSTIPATION; Start 09/13/16 at 15: 00 Metronidazole (Flagyl) 500 mg Q8 PO Last administered on 09/16/16 06:03; Admin Dose 500 MG; Start 09/13/16 at 22:00; Stop 09/20/16 at 09:00 Furosemide (Lasix) 20 mg DAILY@06 PO ; Start 09/16/16 at 06:00 Enoxaparin Sodium (Lovenox) 30 mg DAILY SC ; Start 09/17/16 at 09:00 Pantoprazole (Protonix Tab) 40 mg DAILY@06 PO ; Start 09/17/16 at 06:00 EVANGELISTA SYLVESTER Sep 16, 2016 13:50
[2016-09-16 19:47] VITALS: BP 123/61; RESP 18
[2016-09-16] MEDS: SERTRALINE 100 MG TAB PO SCH (20:28)
[2016-09-16] MEDS: ZOLPIDEM 5 MG TAB PO PRN (21:58)
[2016-09-17] MEDS: HYDROCODONE/APAP (5/325) TAB PO PRN ×2 (05:18→22:29)
[2016-09-17] MEDS: PANTOPRAZOLE (EC) 40 MG TAB PO SCH (05:23)
[2016-09-17] MEDS: LEVOTHYROXINE 88 MCG TAB PO SCH (05:23)
[2016-09-17] MEDS: metroNIDAZOLE 500 MG TAB PO SCH ×3 (05:23→22:29)
[2016-09-17] MEDS: FUROSEMIDE 20 MG TAB PO SCH (05:25)
[2016-09-17 07:30] VITALS: BP 137/63; RESP 20
[2016-09-17] MEDS: SALMETEROL/FLUTICASONE 250/50 INHA INH SCH ×2 (08:21→20:13)
[2016-09-17] MEDS: DORZOLAMIDE/TIMOLOL 10 ML OPH LEFT EYE SCH ×2 (08:21→20:16)
[2016-09-17] MEDS: METOPROLOL (XL) 50 MG TAB PO SCH (08:22)
[2016-09-17] MEDS: LATANOPROST 0.005% 2.5 ML OPH LEFT EYE SCH (08:22)
[2016-09-17] MEDS: TIOTROPIUM 18 MCG CAPSULE INHA DEV INH SCH (08:22)
[2016-09-17] MEDS: BUSPIRONE 5 MG TAB PO SCH ×2 (08:23→20:14)
[2016-09-17] MEDS: ENOXAPARIN 30 MG/0.3 ML SYG SC SCH (08:23)
--- NOTE | 2016-09-17 09:10 | PN ---
Date/Time of Note Date/Time of Note DATE: 09/17/16 TIME: 09:09 Assessment/Plan VTE Prophylaxis VTE Prophylaxis Intervention: LMWH Lines/Catheters IV Catheter Type (from [place]): Saline Lock Assessment/Plan Chief Complaint/Hosp Course Assessment/Plan 1. Abdominal pain With CAT scan finding of small amount of free fluid in the lower pelvis with a second encapsulated fluid collection suspicious for a small pelvic abscess. General surgery and superintendent communications has been consulted, continue IV antibiotics. Follow-up general surgery recommendations Status post CT-guided drainage by interventional radiologist 2. 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 COPD (chronic obstructive pulmonary disease) Continue breathing treatment, oxygen as needed 4. Essential hypertension Well-controlled on medical management 5. Hyperlipidemia Continue statin 6. Acquired autoimmune hypothyroidism Continue levothyroxine, follow-up free T3 and T4 We will continue monitor patient closely for recommendation management treatment as clinical course Problems: Subjective 24 Hr Interval Summary Free Text/Dictation Patient continues to complain of having minimal abdominal discomfort No nausea vomiting diarrhea, tolerating oral intake Ambulating with minimal assist and walker Exam/Review of Systems Vital Signs Vitals Vital Signs Date Time Temp Pulse Resp B/P Pulse Ox O2 Delivery O2 Flow Rate FiO2 09/17/16 07:30 98.4 74 20 137/63 96 09/16/16 21:00 2.0 09/16/16 19:54 Nasal Cannula Intake and Output 09/16/16 09/16/16 09/17/16 15:00 23:00 07:00 Intake Total 500 ml 200 ml Output Total 75 ml 0 ml Balance -75 ml 500 ml 200 ml Exam General: The patient is well-developed, Not in acute distress. HEENT: Atraumatic, normocephalic. The pupils are equal and round . Neck: Supple with full range of motion. Chest: Normal expansion of the thorax during inspiration Lungs: Clear to auscultation bilaterally Heart: Normal S1-S2, Regular rhythm and rate. Abdomen: Soft , nontender, nondistended , bowel sounds are present. Surgical site is dry and clean Extremities: Normal to inspection, no edema no cyanosis Neurologic: Normal mental status,The patient is awake, alert and oriented . Results Result Diagram: 09/16/16 0653 09/16/16652 Medications Medications Current Medications Docusate Sodium (Colace) 100 mg BID PO ; Start 09/08/16 at 19:01; Status Future Hold Ondansetron HCl (Zofran Inj) 4 mg Q6H PRN IV NAUSEA AND/OR VOMITING; Start 09/08 at 19:01 Acetaminophen (Tylenol Tab) 650 mg Q6H PRN PO PAIN LEVEL 1-3 OR FEVER Last administered on 09/12/16 22:10; Admin Dose 650 MG; Start 09/08/16 at 19:01 Buspirone HCl (Buspar) 5 mg BID PO Last administered on 09/17/16 08:23; Admin Dose 5 MG; Start 09/08/16 at 19:01 Dorzolamide/ Timolol (Cosopt) 1 drop BID LEFT EYE Last administered on 08:21; Admin Dose 1 DROP; Start 09/08/16 at 19:01 Latanoprost (Xalatan) 1 drop DAILY LEFT EYE Last administered on 09/17/16 08: 22; Admin Dose 1 DROP; Start 09/08/16 at 19:01 Lorazepam (Ativan) 0.5 mg HS PRN PO ANXIETY; Start 09/08/16 at 19:01 Salmeterol Xinafoate/ Fluticasone (Advair 250/50 Diskus) 1 inh BID INH Last administered on 09/17/16 08:21; Admin Dose 1 INH; Start 09/08/16 at 19:01 Tiotropium [place] (Spiriva) 1 inh DAILY INH Last administered on 09/17/16 08: 22; Admin Dose 1 INH; Start 09/08/16 at 19:01 Hydralazine HCl (Apresoline) 10 mg Q6H PRN IV SBP >170; Start 09/08/16 at 19:01 Senna (Senokot) 1 tab BID PO ; Start 09/08/16 at 19:01; Status Future Hold Polyethylene Glycol (Miralax) 17 gm DAILY GTB ; Start 09/08/16 at 19:01; Status Future Hold Sertraline HCl (Zoloft) 100 mg HS PO Last administered on 09/16/16 20:28; Admin Dose 100 MG; Start 09/08/16 at 19:01 Zolpidem Tartrate (Ambien) 10 mg HS PRN PO INSOMNIA Last administered on 21:58; Admin Dose 10 MG; Start 09/08/16 at 21:00 Hydrocortisone (Anusol-Hc Supp) 25 mg DAILY PRN [place] HEMORROID PAIN/ITCHING Last administered on 09/09/16 14:59; Admin Dose 25 MG; Start 09/09/16 at 11:00 Levothyroxine Sodium (Synthroid) 88 mcg DAILY@06 PO Last administered on 05:23; Admin Dose 88 MCG; Start 09/11/16 at 06:00 Docosanol (Abreva) 1 applic BID PRN TOP COLD SORE Last administered on 09:13; Admin Dose 1 APPLIC; Start 09/12/16 at 12:30 Acetaminophen/ Hydrocodone Bitart ([place] (5/325)) 1 tab Q4 PRN PO PAIN Last administered on 09/17/16 05:18; Admin Dose 1 TAB; Start 09/13/16 at 13:00 Metoprolol Succinate (Toprol Xl) 50 mg DAILY PO Last administered on 09/17/16 08:22; Admin Dose 50 MG; Start 09/14/16 at 09:00 Docusate Sodium (Colace) 100 mg DAILY PRN PO CONSTIPATION; Start 09/13/16 at 15: 00 Metronidazole (Flagyl) 500 mg Q8 PO Last administered on 09/17/16 05:23; Admin Dose 500 MG; Start 09/13/16 at 22:00; Stop 09/20/16 at 09:00 Furosemide (Lasix) 20 mg DAILY@06 PO Last administered on 09/17/16 05:25; Admin Dose 20 MG; Start 09/16/16 at 06:00 Enoxaparin Sodium (Lovenox) 30 mg DAILY SC Last administered on 09/17/16 08:23 ; Admin Dose 30 MG; Start 09/17/16 at 09:00 Pantoprazole (Protonix Tab) 40 mg DAILY@06 PO Last administered on 09/17/16 05 :23; Admin Dose 40 MG; Start 09/17/16 at 06:00 YAMILE LARA MD Sep 17, 2016 09:10
--- NOTE | 2016-09-17 10:01 | PN ---
Date/Time of Note Date/Time of Note DATE: 09/17/16 TIME: 09:54 Assessment/Plan VTE Prophylaxis VTE Prophylaxis Intervention: LMWH Lines/Catheters IV Catheter Type (from Nrs): Saline Lock Assessment/Plan Assessment/Plan 1. Debility in the setting of complicated hospitalization with impaired mobility /gait/ADLs. Continue PT/OT. Toileting with stand by assistance, grooming with supervision. 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 3. Appendicitis status post appendectomy, with persistent abdominal discomfort and CT suspicious for pelvic abscess, s/p percutaneous drainage, drain removed this morning. Follow up any further recs for GI and general surgery. 4. Acute diastolic CHF. On diuretics per cardiology. Continue to monitor volume status. 5. COPD. Stable. Continue breathing treatments and supplemental 02 as needed. 6. Hypertension. BP controlled, continue current medical management. 7. Hypothyroidism. Continue levothyroxine. 8. Hyperlipidemia. 9. Glaucoma. Continue eye drops. 10. History of hemorrhoids. Subjective 24 Hr Interval Summary Free Text/Dictation Rehab progress note Subjective: Reports abdominal discomfort improved today. No nausea or vomiting. Reports bowel movement yesterday and this morning. ROS: Denies headache, no dizziness, no chest pain, no shortness of breath, no chills. Exam/Review of Systems Vital Signs Vitals Vital Signs Date Time Temp Pulse Resp B/P Pulse Ox O2 Delivery O2 Flow Rate FiO2 09/17/16 08:00 Nasal Cannula 3.0 09/17/16 07:30 98.4 74 20 137/63 96 Intake and Output 09/16/16 09/16/16 09/17/16 15:00 23:00 07:00 Intake Total 500 ml 200 ml Output Total 75 ml 0 ml Balance -75 ml 500 ml 200 ml Exam General: Awake, alert, no acute distress CV: Regular rate, s1s2 Lungs: Clear to anterior auscultation, no accessory muscle use Abdomen soft, bowel sounds present. Drain removed with dressing in place, clean and dry. Extremities without cyanosis, no edema Neuro: No new focal changes. Follows simple commands. Results Result Diagram: 09/16/16 0653 09/16/16 0653 Medications Medications Current Medications Docusate Sodium (Colace) 100 mg BID PO ; Start 09/08/16 at 19:01; Status Future Hold Ondansetron HCl (Zofran Inj) 4 mg Q6H PRN IV NAUSEA AND/OR VOMITING; Start 09/08 at 19:01 Acetaminophen (Tylenol Tab) 650 mg Q6H PRN PO PAIN LEVEL 1-3 OR FEVER Last administered on 09/12/16 22:10; Admin Dose 650 MG; Start 09/08/16 at 19:01 Buspirone HCl (Buspar) 5 mg BID PO Last administered on 09/17/16 08:23; Admin Dose 5 MG; Start 09/08/16 at 19:01 Dorzolamide/ Timolol (Cosopt) 1 drop BID LEFT EYE Last administered on 08:21; Admin Dose 1 DROP; Start 09/08/16 at 19:01 Latanoprost (Xalatan) 1 drop DAILY LEFT EYE Last administered on 09/17/16 08: 22; Admin Dose 1 DROP; Start 09/08/16 at 19:01 Lorazepam (Ativan) 0.5 mg HS PRN PO ANXIETY; Start 09/08/16 at 19:01 Salmeterol Xinafoate/ Fluticasone (Advair 250/50 Diskus) 1 inh BID INH Last administered on 09/17/16 08:21; Admin Dose 1 INH; Start 09/08/16 at 19:01 Tiotropium [place] (Spiriva) 1 inh DAILY INH Last administered on 09/17/16 08: 22; Admin Dose 1 INH; Start 09/08/16 at 19:01 Hydralazine HCl (Apresoline) 10 mg Q6H PRN IV SBP >170; Start 09/08/16 at 19:01 Senna (Senokot) 1 tab BID PO ; Start 09/08/16 at 19:01; Status Future Hold Polyethylene Glycol (Miralax) 17 gm DAILY GTB ; Start 09/08/16 at 19:01; Status Future Hold Sertraline HCl (Zoloft) 100 mg HS PO Last administered on 09/16/16 20:28; Admin Dose 100 MG; Start 09/08/16 at 19:01 Zolpidem Tartrate (Ambien) 10 mg HS PRN PO INSOMNIA Last administered on 21:58; Admin Dose 10 MG; Start 09/08/16 at 21:00 Hydrocortisone (Anusol-Hc Supp) 25 mg DAILY PRN [place] HEMORROID PAIN/ITCHING Last administered on 09/09/16 14:59; Admin Dose 25 MG; Start 09/09/16 at 11:00 Levothyroxine Sodium (Synthroid) 88 mcg DAILY@06 PO Last administered on 05:23; Admin Dose 88 MCG; Start 09/11/16 at 06:00 Docosanol (Abreva) 1 applic BID PRN TOP COLD SORE Last administered on 09:13; Admin Dose 1 APPLIC; Start 09/12/16 at 12:30 Acetaminophen/ Hydrocodone Bitart ([place] (5/325)) 1 tab Q4 PRN PO PAIN Last administered on 09/17/16 05:18; Admin Dose 1 TAB; Start 09/13/16 at 13:00 Metoprolol Succinate (Toprol Xl) 50 mg DAILY PO Last administered on 09/17/16 08:22; Admin Dose 50 MG; Start 09/14/16 at 09:00 Docusate Sodium (Colace) 100 mg DAILY PRN PO CONSTIPATION; Start 09/13/16 at 15: 00 Metronidazole (Flagyl) 500 mg Q8 PO Last administered on 09/17/16 05:23; Admin Dose 500 MG; Start 09/13/16 at 22:00; Stop 09/20/16 at 09:00 Furosemide (Lasix) 20 mg DAILY@06 PO Last administered on 09/17/16 05:25; Admin Dose 20 MG; Start 09/16/16 at 06:00 Enoxaparin Sodium (Lovenox) 30 mg DAILY SC Last administered on 09/17/16 08:23 ; Admin Dose 30 MG; Start 09/17/16 at 09:00 Pantoprazole (Protonix Tab) 40 mg DAILY@06 PO Last administered on 09/17/16 05 :23; Admin Dose 40 MG; Start 09/17/16 at 06:00 EVANGELISTA SYLVESTER Sep 17, 2016 10:01
--- NOTE | 2016-09-17 10:22 | PN ---
DATE: 09/17/2016 SUBJECTIVE: Ms. Aguila is now postoperative day 12 from laparoscopic appendectomy. The patient i s still complaining of tenesmus. OBJECTIVE: She is afebrile. Vital signs stable. She is voiding well. Her abdomen is benign. Her drain is draining minimally serous fluid and was discontinued today by me. ASSESSMENT AND PLAN: Ms. Aguila is an 86-year-old female status post laparoscopic appendectomy fo r perforated appendicitis. 1. Tenesmus still persists. Hopefully by removing drain that was possibly the nidus for tenesmus. 2. If her tenesmus persists, agree with sigmoidoscopy per GI. Dictated By: TRISTAN MYLES/NTS Conf#: [id number] DID#: [id number]
[2016-09-17 19:15] VITALS: BP 123/59; RESP 19
--- NOTE | 2016-09-17 19:15 | CONS ---
DATE OF ADMISSION: 09/08/2016 DATE OF CONSULTATION: TYPE OF CONSULTATION: Gastroenterology. REFERRING PHYSICIAN: ____. HISTORY OF PRESENT ILLNESS: The patient is an 86-year-old female with a history of status post appe ndicectomy done recently, admitted to the hospital for abdominal pain. She was hypotensive postoper atively, required ICU stay. The patient also was in respiratory distress secondary to congestive he art failure and chronic obstructive pulmonary disease. However, she recovered, but developed signif icant weakness and subsequently transferred to the rehab floor for further management. The patient, because of her abdominal pain, underwent CAT scan of the abdomen and pelvis, which showed a pelvic abscess so she had a drainage procedure. The abdominal pain persisted, so GI consult was called in. No nausea, no vomiting, no chest pain, no shortness of breath. She had a colonoscopy done 1 year ago, which was negative. PAST MEDICAL HISTORY: Hypertension, autoimmune hypothyroidism, hemorrhoids, glaucoma, COPD, depress ion, dyslipidemia. MEDICATIONS: 1. Levaquin. 2. Ambien. 3. BuSpar. 4. Coreg. 5. Lovenox. 6. Pepcid. 7. Lasix. 8. Synthroid. 9. Advair. ALLERGIES: THE PATIENT HAS NO KNOWN ALLERGIES. PHYSICAL EXAMINATION: GENERAL: Alert, awake, not in distress. VITAL SIGNS: Stable. HEENT: Unremarkable. NECK: Supple. No thyromegaly, no lymphadenopathy. CARDIOVASCULAR: No murmur, gallop, or click. LUNGS: Clear. ABDOMEN: Soft, nontender. No organomegaly, no mass per abdomen. EXTREMITIES: No edema. CENTRAL NERVOUS SYSTEM: Grossly within normal limits. LABORATORY DATA: WBC is 11.7, hematocrit is 32. BNP is within normal limits. B12 is all within no rmal limits. INR was within normal limits. Hepatitis surface antigen and C antibody all were haydee l. LFTs also all within normal limits. IMPRESSION: 1. Abdominal pain, which is much better after the drainage procedure of the pelvic abscess. 2. Hypertension. 3. Hypothyroidism. 4. History of hemorrhoids. 5. Tenesmus. 6. Hyperlipidemia. 7. Deconditioned. 9. Chronic obstructive pulmonary disease. PLAN: At this point, is to continue present care, Sitz bath. The patient had a colonoscopy just 1 year ago, by ____ and it was negative. So, we have a Sitz bath b.i.d., and hopefully this will resolve the symptoms. If the symptoms persist, then we will do flex sig. Dictated By: MICHELE NGUYỄN/VU Conf#: [id number] DID#: [id number] CC: LAUREN MCLAUGHLIN MD; MICHELE MIRELES MD;*End*
[2016-09-17] MEDS: SERTRALINE 100 MG TAB PO SCH (20:14)
[2016-09-17] MEDS: ZOLPIDEM 5 MG TAB PO PRN (22:29)
[2016-09-18] MEDS: DOCOSANOL 2 GM CREAM TOP PRN (05:38)
[2016-09-18] MEDS: PANTOPRAZOLE (EC) 40 MG TAB PO SCH (05:38)
[2016-09-18] MEDS: metroNIDAZOLE 500 MG TAB PO SCH ×3 (05:38→22:24)
[2016-09-18] MEDS: LEVOTHYROXINE 88 MCG TAB PO SCH (05:38)
[2016-09-18] MEDS: FUROSEMIDE 20 MG TAB PO SCH (05:39)
[2016-09-18 07:30] VITALS: BP 108/61; RESP 18
[2016-09-18 07:57] LABS: BASOPHILS % 0.3 % (0.0-2.0); EOSINOPHILS # 0.2 10^3/ul (0.0-0.5); EOSINOPHILS % 1.6 % (0.0-7.0); HEMOGLOBIN 11.5 g/dl (12.0-16.0); LYMPHOCYTES # 1.9 10^3/ul (0.8-2.9); LYMPHOCYTES % 14.6 % (15.0-51.0); MEAN CORPUSCULAR HEMOGLOBIN 28.5 pg (29.0-33.0); MEAN CORPUSCULAR HGB CONC 32.8 g/dl (32.0-37.0); MEAN CORPUSCULAR VOLUME 86.9 fl (82.0-101.0); MEAN PLATELET VOLUME 7.7 fl (7.4-10.4); MONOCYTE # 1.4 10^3/ul (0.3-0.9); NEUTROPHIL # 9.5 10^3/ul (1.6-7.5); NEUTROPHILS % 72.5 % (39.0-77.0); PLATELET COUNT 627 10^3/UL (140-440); RED BLOOD COUNT 4.03 10^6/ul (4.20-5.40); RED CELL DISTRIBUTION WIDTH 15.1 % (11.5-14.5); UNCORRECTED WBC 13.1 10^3/ul (4.8-10.8); WHITE BLOOD COUNT 13.1 10^3/ul (4.8-10.8)
[2016-09-18 08:09] LABS: CONDITION 1; LH ANALYZER COMMENTS 1
[2016-09-18 08:18] LABS: POTASSIUM 4.3 mmol/L (3.5-5.1)
[2016-09-18 08:20] LABS: CREATININE 0.79 mg/dl (0.44-1.00)
[2016-09-18] MEDS: METOPROLOL (XL) 50 MG TAB PO SCH (09:00)
[2016-09-18] MEDS: DORZOLAMIDE/TIMOLOL 10 ML OPH LEFT EYE SCH ×2 (09:31→20:05)
[2016-09-18] MEDS: LATANOPROST 0.005% 2.5 ML OPH LEFT EYE SCH (09:31)
[2016-09-18] MEDS: SALMETEROL/FLUTICASONE 250/50 INHA INH SCH ×2 (09:31→20:05)
[2016-09-18] MEDS: TIOTROPIUM 18 MCG CAPSULE INHA DEV INH SCH (09:31)
[2016-09-18] MEDS: BUSPIRONE 5 MG TAB PO SCH ×2 (09:31→20:06)
[2016-09-18] MEDS: ENOXAPARIN 30 MG/0.3 ML SYG SC SCH (09:35)
[2016-09-18] MEDS: HYDROCODONE/APAP (5/325) TAB PO PRN ×2 (09:36→22:25)
--- NOTE | 2016-09-18 12:24 | CONS ---
Date/Time of Note Date/Time of Note DATE: 09/18/16 TIME: 12:22 Consult Date/Type/Reason Admit Date/Time Sep 08, 2016 at 18:41 Type of Consultation: cv Objective Vital Signs Date Time Temp Pulse Resp B/P Pulse Ox O2 Delivery O2 Flow Rate FiO2 09/18/16 07:30 98.4 77 18 108/61 93 09/18/16 07:30 Nasal Cannula 3.0 Intake and Output 09/17/16 09/17/16 09/18/16 14:59 22:59 06:59 Intake Total 720 ml 700 ml Balance 720 ml 700 ml INTERDISCIPLINARY TEAM CONFERENCE BOWEL- Cont BLADDER-Cont SKIN- intact OT- DRESSING- mi BATHING-s TOILETING-mi PT- BED MOBILITY-sba TRANSFERS-sba AMBULATION-sba 200 feet A/P- Interdisciplinary team conference held today. Please see interdisciplinary sheet. Working toward d.c. on 09/19 with post discharge follow up of physical therapy, occupational therapy. Results/Medications Result Diagram: 09/18/16 0657 09/18/16 0657 Results 24 hrs Laboratory Tests Test 09/18/16 06:57 Anion Gap 15 Basophils # 0.0 Basophils % 0.3 Blood Morphology Comment Blood Urea Nitrogen 20 Calcium Level 9.0 Carbon Dioxide Level 27 Chloride Level 104 Creatinine 0.79 Eosinophils # 0.2 Eosinophils % 1.6 Glucose Level 98 Hematocrit 35.0 L Hemoglobin 11.5 L Lymphocytes # 1.9 Lymphocytes % 14.6 L Mean Corpuscular Hemoglobin 28.5 L Mean Corpuscular Hemoglobin Concent 32.8 Mean Corpuscular Volume 86.9 Mean Platelet Volume 7.7 Monocytes # 1.4 H Monocytes % 11.0 Neutrophils # 9.5 H Neutrophils % 72.5 Nucleated Red Blood Cells # 0.0 Nucleated Red Blood Cells % 0.0 Platelet Count 627 #H Potassium Level 4.3 Red Blood Count 4.03 L Red Cell Distribution Width 15.1 H Sodium Level 142 White Blood Count 13.1 H Medications Current Medications Docusate Sodium (Colace) 100 mg BID PO ; Start 09/08/16 at 19:01; Status Future Hold Ondansetron HCl (Zofran Inj) 4 mg Q6H PRN IV NAUSEA AND/OR VOMITING; Start 09/08 at 19:01 Acetaminophen (Tylenol Tab) 650 mg Q6H PRN PO PAIN LEVEL 1-3 OR FEVER Last administered on 09/12/16 22:10; Admin Dose 650 MG; Start 09/08/16 at 19:01 Buspirone HCl (Buspar) 5 mg BID PO Last administered on 09/18/16 09:31; Admin Dose 5 MG; Start 09/08/16 at 19:01 Dorzolamide/ Timolol (Cosopt) 1 drop BID LEFT EYE Last administered on 09:31; Admin Dose 1 DROP; Start 09/08/16 at 19:01 Latanoprost (Xalatan) 1 drop DAILY LEFT EYE Last administered on 09/18/16 09: ; Admin Dose 1 DROP; Start 09/08/16 at 19:01 Lorazepam (Ativan) 0.5 mg HS PRN PO ANXIETY; Start 09/08/16 at 19:01 Salmeterol Xinafoate/ Fluticasone (Advair 250/50 Diskus) 1 inh BID INH Last administered on 09/18/16 09:31; Admin Dose 1 INH; Start 09/08/16 at 19:01 Tiotropium [place] (Spiriva) 1 inh DAILY INH Last administered on 09/18/16 09: 31; Admin Dose 1 INH; Start 09/08/16 at 19:01 Hydralazine HCl (Apresoline) 10 mg Q6H PRN IV SBP >170; Start 09/08/16 at 19:01 Senna (Senokot) 1 tab BID PO ; Start 09/08/16 at 19:01; Status Future Hold Polyethylene Glycol (Miralax) 17 gm DAILY GTB ; Start 09/08/16 at 19:01; Status Future Hold Sertraline HCl (Zoloft) 100 mg HS PO Last administered on 09/17/16 20:14; Admin Dose 100 MG; Start 09/08/16 at 19:01 Zolpidem Tartrate (Ambien) 10 mg HS PRN PO INSOMNIA Last administered on 22:29; Admin Dose 10 MG; Start 09/08/16 at 21:00 Hydrocortisone (Anusol-Hc Supp) 25 mg DAILY PRN [place] HEMORROID PAIN/ITCHING Last administered on 09/09/16 14:59; Admin Dose 25 MG; Start 09/09/16 at 11:00 Levothyroxine Sodium (Synthroid) 88 mcg DAILY@06 PO Last administered on 05:38; Admin Dose 88 MCG; Start 09/11/16 at 06:00 Docosanol (Abreva) 1 applic BID PRN TOP COLD SORE Last administered on 05:38; Admin Dose 1 APPLIC; Start 09/12/16 at 12:30 Acetaminophen/ Hydrocodone Bitart ([place] (5/325)) 1 tab Q4 PRN PO PAIN Last administered on 09/18/16 09:36; Admin Dose 1 TAB; Start 09/13/16 at 13:00 Metoprolol Succinate (Toprol Xl) 50 mg DAILY PO Last administered on 09/17/16 08:22; Admin Dose 50 MG; Start 09/14/16 at 09:00 Docusate Sodium (Colace) 100 mg DAILY PRN PO CONSTIPATION; Start 09/13/16 at 15: 00 Metronidazole (Flagyl) 500 mg Q8 PO Last administered on 09/18/16 05:38; Admin Dose 500 MG; Start 09/13/16 at 22:00; Stop 09/20/16 at 09:00 Furosemide (Lasix) 20 mg DAILY@06 PO Last administered on 09/18/16 05:39; Admin Dose 20 MG; Start 09/16/16 at 06:00 Enoxaparin Sodium (Lovenox) 30 mg DAILY SC Last administered on 09/18/16 09:35 ; Admin Dose 30 MG; Start 09/17/16 at 09:00 Pantoprazole (Protonix Tab) 40 mg DAILY@06 PO Last administered on 09/18/16 05 :38; Admin Dose 40 MG; Start 09/17/16 at 06:00 LAUREN MCLAUGHLIN MD Sep 18, 2016 12:24
--- NOTE | 2016-09-18 12:46 | CONS ---
Date/Time of Note Date/Time of Note DATE: 09/18/16 TIME: 12:45 Assessment/Plan Assessment/Plan Additional Assessment/Plan Acute decompensated diastolic congestive heart failure, resolving Acute appendicitis status post surgery Preserved ejection fraction Hypertension -Blood pressure trend overall improved. Lung examination improved. Will DC Lasix next 1-2 days. Consultation Date/Type/Reason Admit Date/Time Sep 08, 2016 at 18:41 Type of Consultation: cv 24 HR Interval Summary Free Text/Dictation Patient denies shortness of breath, palpitations or chest pain, feeling better Exam/Review of Systems Vital Signs Vitals Vital Signs Date Time Temp Pulse Resp B/P Pulse Ox O2 Delivery O2 Flow Rate FiO2 09/18/16 07:30 98.4 77 18 108/61 93 09/18/16 07:30 Nasal Cannula 3.0 Intake and Output 09/17/16 09/17/16 09/18/16 15:00 23:00 07:00 Intake Total 720 ml 700 ml Balance 720 ml 700 ml Exam No apparent distress Constitutional: alert, oriented Head: normocephalic Neck: supple Respiratory: other (Coarse breath sounds bilaterally, no wheezing) Cardiovascular: other (S1-S2 heard), regular rate and rhythm Gastrointestinal: bowel sounds, non-tender, soft Extremities: other (No edema) Results Result Diagram: 09/18/16 0657 09/18/16 0657 Results 24 hrs Laboratory Tests Test 09/18/16 06:57 Anion Gap 15 Basophils # 0.0 Basophils % 0.3 Blood Morphology Comment Blood Urea Nitrogen 20 Calcium Level 9.0 Carbon Dioxide Level 27 Chloride Level 104 Creatinine 0.79 Eosinophils # 0.2 Eosinophils % 1.6 Glucose Level 98 Hematocrit 35.0 L Hemoglobin 11.5 L Lymphocytes # 1.9 Lymphocytes % 14.6 L Mean Corpuscular Hemoglobin 28.5 L Mean Corpuscular Hemoglobin Concent 32.8 Mean Corpuscular Volume 86.9 Mean Platelet Volume 7.7 Monocytes # 1.4 H Monocytes % 11.0 Neutrophils # 9.5 H Neutrophils % 72.5 Nucleated Red Blood Cells # 0.0 Nucleated Red Blood Cells % 0.0 Platelet Count 627 #H Potassium Level 4.3 Red Blood Count 4.03 L Red Cell Distribution Width 15.1 H Sodium Level 142 White Blood Count 13.1 H Medications Medications Current Medications Docusate Sodium (Colace) 100 mg BID PO ; Start 09/08/16 at 19:01; Status Future Hold Ondansetron HCl (Zofran Inj) 4 mg Q6H PRN IV NAUSEA AND/OR VOMITING; Start 09/08 at 19:01 Acetaminophen (Tylenol Tab) 650 mg Q6H PRN PO PAIN LEVEL 1-3 OR FEVER Last administered on 09/12/16 22:10; Admin Dose 650 MG; Start 09/08/16 at 19:01 Buspirone HCl (Buspar) 5 mg BID PO Last administered on 09/18/16 09:31; Admin Dose 5 MG; Start 09/08/16 at 19:01 Dorzolamide/ Timolol (Cosopt) 1 drop BID LEFT EYE Last administered on 09:31; Admin Dose 1 DROP; Start 09/08/16 at 19:01 Latanoprost (Xalatan) 1 drop DAILY LEFT EYE Last administered on 09/18/16 09: 31; Admin Dose 1 DROP; Start 09/08/16 at 19:01 Lorazepam (Ativan) 0.5 mg HS PRN PO ANXIETY; Start 09/08/16 at 19:01 Salmeterol Xinafoate/ Fluticasone (Advair 250/50 Diskus) 1 inh BID INH Last administered on 09/18/16 09:31; Admin Dose 1 INH; Start 09/08/16 at 19:01 Tiotropium [place] (Spiriva) 1 inh DAILY INH Last administered on 09/18/16 09: 31; Admin Dose 1 INH; Start 09/08/16 at 19:01 Hydralazine HCl (Apresoline) 10 mg Q6H PRN IV SBP >170; Start 09/08/16 at 19:01 Senna (Senokot) 1 tab BID PO ; Start 09/08/16 at 19:01; Status Future Hold Polyethylene Glycol (Miralax) 17 gm DAILY GTB ; Start 09/08/16 at 19:01; Status Future Hold Sertraline HCl (Zoloft) 100 mg HS PO Last administered on 09/17/16 20:14; Admin Dose 100 MG; Start 09/08/16 at 19:01 Zolpidem Tartrate (Ambien) 10 mg HS PRN PO INSOMNIA Last administered on 22:29; Admin Dose 10 MG; Start 09/08/16 at 21:00 Hydrocortisone (Anusol-Hc Supp) 25 mg DAILY PRN [place] HEMORROID PAIN/ITCHING Last administered on 09/09/16 14:59; Admin Dose 25 MG; Start 09/09/16 at 11:00 Levothyroxine Sodium (Synthroid) 88 mcg DAILY@06 PO Last administered on 05:38; Admin Dose 88 MCG; Start 09/11/16 at 06:00 Docosanol (Abreva) 1 applic BID PRN TOP COLD SORE Last administered on 05:38; Admin Dose 1 APPLIC; Start 09/12/16 at 12:30 Acetaminophen/ Hydrocodone Bitart ([place] (5/325)) 1 tab Q4 PRN PO PAIN Last administered on 09/18/16 09:36; Admin Dose 1 TAB; Start 09/13/16 at 13:00 Metoprolol Succinate (Toprol Xl) 50 mg DAILY PO Last administered on 09/17/16 08:22; Admin Dose 50 MG; Start 09/14/16 at 09:00 Docusate Sodium (Colace) 100 mg DAILY PRN PO CONSTIPATION; Start 09/13/16 at 15: 00 Metronidazole (Flagyl) 500 mg Q8 PO Last administered on 09/18/16 05:38; Admin Dose 500 MG; Start 09/13/16 at 22:00; Stop 09/20/16 at 09:00 Furosemide (Lasix) 20 mg DAILY@06 PO Last administered on 09/18/16 05:39; Admin Dose 20 MG; Start 09/16/16 at 06:00 Enoxaparin Sodium (Lovenox) 30 mg DAILY SC Last administered on 09/18/16 09:35 ; Admin Dose 30 MG; Start 09/17/16 at 09:00 Pantoprazole (Protonix Tab) 40 mg DAILY@06 PO Last administered on 09/18/16 05 :38; Admin Dose 40 MG; Start 09/17/16 at 06:00 Taco Castillo DO Sep 18, 2016 12:46
--- NOTE | 2016-09-18 12:56 | PN ---
Date/Time of Note Date/Time of Note DATE: 09/18/16 TIME: 12:54 Assessment/Plan VTE Prophylaxis VTE Prophylaxis Intervention: SCD's Lines/Catheters IV Catheter Type (from Nrs): Saline Lock Assessment/Plan Chief Complaint/Hosp Course Assessment/Plan 1. Abdominal pain With CAT scan finding of small amount of free fluid in the lower pelvis with a second encapsulated fluid collection suspicious for a small pelvic abscess. General surgery and container finishing inspector has been consulted, continue IV antibiotics. Follow-up general surgery recommendations Status post CT-guided drainage by interventional radiologist 2. 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 COPD (chronic obstructive pulmonary disease) Continue breathing treatment, oxygen as needed 4. Essential hypertension Well-controlled on medical management 5. Hyperlipidemia Continue statin 6. Acquired autoimmune hypothyroidism Continue levothyroxine, We will continue monitor patient closely for recommendation management treatment as clinical course Problems: Subjective 24 Hr Interval Summary Free Text/Dictation Patient denies any chest pain shortness of breath Denies any abdominal discomfort No nausea vomiting diarrhea Exam/Review of Systems Vital Signs Vitals Vital Signs Date Time Temp Pulse Resp B/P Pulse Ox O2 Delivery O2 Flow Rate FiO2 09/18/16 07:30 98.4 77 18 108/61 93 09/18/16 07:30 Nasal Cannula 3.0 Intake and Output 09/17/16 09/17/16 09/18/16 15:00 23:00 07:00 Intake Total 720 ml 700 ml Balance 720 ml 700 ml Exam General: The patient is well-developed, Not in acute distress. HEENT: Atraumatic, normocephalic. The pupils are equal and round . Neck: Supple with full range of motion. Chest: Normal expansion of the thorax during inspiration Lungs: Clear to auscultation bilaterally Heart: Normal S1-S2, Regular rhythm and rate. Abdomen: Soft , nontender, nondistended , bowel sounds are present. Surgical site is dry and clean Extremities: Normal to inspection, no edema no cyanosis Neurologic: Normal mental status,The patient is awake, alert and oriented . Results Result Diagram: 09/18/16 0657 09/18/16 0657 Results 24 hrs Laboratory Tests Test 09/18/16 06:57 Anion Gap 15 Basophils # 0.0 Basophils % 0.3 Blood Morphology Comment Blood Urea Nitrogen 20 Calcium Level 9.0 Carbon Dioxide Level 27 Chloride Level 104 Creatinine 0.79 Eosinophils # 0.2 Eosinophils % 1.6 Glucose Level 98 Hematocrit 35.0 L Hemoglobin 11.5 L Lymphocytes # 1.9 Lymphocytes % 14.6 L Mean Corpuscular Hemoglobin 28.5 L Mean Corpuscular Hemoglobin Concent 32.8 Mean Corpuscular Volume 86.9 Mean Platelet Volume 7.7 Monocytes # 1.4 H Monocytes % 11.0 Neutrophils # 9.5 H Neutrophils % 72.5 Nucleated Red Blood Cells # 0.0 Nucleated Red Blood Cells % 0.0 Platelet Count 627 #H Potassium Level 4.3 Red Blood Count 4.03 L Red Cell Distribution Width 15.1 H Sodium Level 142 White Blood Count 13.1 H Medications Medications Current Medications Docusate Sodium (Colace) 100 mg BID PO ; Start 09/08/16 at 19:01; Status Future Hold Ondansetron HCl (Zofran Inj) 4 mg Q6H PRN IV NAUSEA AND/OR VOMITING; Start 09/08 at 19:01 Acetaminophen (Tylenol Tab) 650 mg Q6H PRN PO PAIN LEVEL 1-3 OR FEVER Last administered on 09/12/16 22:10; Admin Dose 650 MG; Start 09/08/16 at 19:01 Buspirone HCl (Buspar) 5 mg BID PO Last administered on 09/18/16 09:31; Admin Dose 5 MG; Start 09/08/16 at 19:01 Dorzolamide/ Timolol (Cosopt) 1 drop BID LEFT EYE Last administered on 09:31; Admin Dose 1 DROP; Start 09/08/16 at 19:01 Latanoprost (Xalatan) 1 drop DAILY LEFT EYE Last administered on 09/18/16 09: 31; Admin Dose 1 DROP; Start 09/08/16 at 19:01 Lorazepam (Ativan) 0.5 mg HS PRN PO ANXIETY; Start 09/08/16 at 19:01 Salmeterol Xinafoate/ Fluticasone (Advair 250/50 Diskus) 1 inh BID INH Last administered on 09/18/16 09:31; Admin Dose 1 INH; Start 09/08/16 at 19:01 Tiotropium [place] (Spiriva) 1 inh DAILY INH Last administered on 09/18/16 09: 31; Admin Dose 1 INH; Start 09/08/16 at 19:01 Hydralazine HCl (Apresoline) 10 mg Q6H PRN IV SBP >170; Start 09/08/16 at 19:01 Senna (Senokot) 1 tab BID PO ; Start 09/08/16 at 19:01; Status Future Hold Polyethylene Glycol (Miralax) 17 gm DAILY GTB ; Start 09/08/16 at 19:01; Status Future Hold Sertraline HCl (Zoloft) 100 mg HS PO Last administered on 09/17/16 20:14; Admin Dose 100 MG; Start 09/08/16 at 19:01 Zolpidem Tartrate (Ambien) 10 mg HS PRN PO INSOMNIA Last administered on 22:29; Admin Dose 10 MG; Start 09/08/16 at 21:00 Hydrocortisone (Anusol-Hc Supp) 25 mg DAILY PRN [place] HEMORROID PAIN/ITCHING Last administered on 09/09/16 14:59; Admin Dose 25 MG; Start 09/09/16 at 11:00 Levothyroxine Sodium (Synthroid) 88 mcg DAILY@06 PO Last administered on 05:38; Admin Dose 88 MCG; Start 09/11/16 at 06:00 Docosanol (Abreva) 1 applic BID PRN TOP COLD SORE Last administered on 05:38; Admin Dose 1 APPLIC; Start 09/12/16 at 12:30 Acetaminophen/ Hydrocodone Bitart ([place] (5/325)) 1 tab Q4 PRN PO PAIN Last administered on 09/18/16 09:36; Admin Dose 1 TAB; Start 09/13/16 at 13:00 Metoprolol Succinate (Toprol Xl) 50 mg DAILY PO Last administered on 09/17/16 08:22; Admin Dose 50 MG; Start 09/14/16 at 09:00 Docusate Sodium (Colace) 100 mg DAILY PRN PO CONSTIPATION; Start 09/13/16 at 15: 00 Metronidazole (Flagyl) 500 mg Q8 PO Last administered on 09/18/16 05:38; Admin Dose 500 MG; Start 09/13/16 at 22:00; Stop 09/20/16 at 09:00 Enoxaparin Sodium (Lovenox) 30 mg DAILY SC Last administered on 09/18/16 09:35 ; Admin Dose 30 MG; Start 09/17/16 at 09:00 Pantoprazole (Protonix Tab) 40 mg DAILY@06 PO Last administered on 09/18/16 05 :38; Admin Dose 40 MG; Start 09/17/16 at 06:00 YAMILE LARA MD Sep 18, 2016 12:56
[2016-09-18] MEDS: SERTRALINE 100 MG TAB PO SCH (20:06)
[2016-09-18] MEDS: ZOLPIDEM 5 MG TAB PO PRN (22:25)
[2016-09-19] MEDS: PANTOPRAZOLE (EC) 40 MG TAB PO SCH (05:46)
[2016-09-19] MEDS: HYDROCODONE/APAP (5/325) TAB PO PRN ×2 (05:47→10:34)
[2016-09-19] MEDS: LEVOTHYROXINE 88 MCG TAB PO SCH (05:47)
[2016-09-19] MEDS: metroNIDAZOLE 500 MG TAB PO SCH ×2 (05:47→13:58)
[2016-09-19 08:00] VITALS: BP 134/68; PULSE 89; RESP 18
[2016-09-19] MEDS: DORZOLAMIDE/TIMOLOL 10 ML OPH LEFT EYE SCH ×2 (08:25→21:56)
[2016-09-19] MEDS: TIOTROPIUM 18 MCG CAPSULE INHA DEV INH SCH (08:25)
[2016-09-19] MEDS: METOPROLOL (XL) 50 MG TAB PO SCH (08:26)
[2016-09-19] MEDS: BUSPIRONE 5 MG TAB PO SCH (08:26)
[2016-09-19] MEDS: ENOXAPARIN 30 MG/0.3 ML SYG SC SCH (08:28)
[2016-09-19] MEDS: LATANOPROST 0.005% 2.5 ML OPH LEFT EYE SCH (08:30)
[2016-09-19] MEDS: SALMETEROL/FLUTICASONE 250/50 INHA INH SCH (08:31)
[2016-09-19 08:50] VITALS: BP 130/68; PULSE 88; RESP 18
--- NOTE | 2016-09-19 11:44 | CONS ---
Date/Time of Note Date/Time of Note DATE: 09/19/16 TIME: 11:42 Consult Date/Type/Reason Admit Date/Time Sep 08, 2016 at 18:41 Type of Consultation: cv Subjective c/o increased abdominal pain today reports she did have BM Objective pulm- cta abd- soft sba ambulation Vital Signs Date Time Temp Pulse Resp B/P Pulse Ox O2 Delivery O2 Flow Rate FiO2 09/19/16 08:50 88 18 130/68 95 Nasal Cannula 3.0 09/19/16 08:00 98.2 Intake and Output 09/18/16 09/18/16 09/19/16 15:00 23:00 07:00 Intake Total 350 ml Balance 350 ml Results/Medications Result Diagram: 09/18/16 0657 09/18/16 0657 Medications Current Medications Docusate Sodium (Colace) 100 mg BID PO ; Start 09/08/16 at 19:01; Status Future Hold Ondansetron HCl (Zofran Inj) 4 mg Q6H PRN IV NAUSEA AND/OR VOMITING; Start 09/08 at 19:01 Acetaminophen (Tylenol Tab) 650 mg Q6H PRN PO PAIN LEVEL 1-3 OR FEVER Last administered on 09/12/16 22:10; Admin Dose 650 MG; Start 09/08/16 at 19:01 Buspirone HCl (Buspar) 5 mg BID PO Last administered on 09/19/16 08:26; Admin Dose 5 MG; Start 09/08/16 at 19:01 Dorzolamide/ Timolol (Cosopt) 1 drop BID LEFT EYE Last administered on 08:25; Admin Dose 1 DROP; Start 09/08/16 at 19:01 Latanoprost (Xalatan) 1 drop DAILY LEFT EYE Last administered on 09/19/16 08: 30; Admin Dose 1 DROP; Start 09/08/16 at 19:01 Lorazepam (Ativan) 0.5 mg HS PRN PO ANXIETY; Start 09/08/16 at 19:01 Salmeterol Xinafoate/ Fluticasone (Advair 250/50 Diskus) 1 inh BID INH Last administered on 09/19/16 08:31; Admin Dose 1 INH; Start 09/08/16 at 19:01 Tiotropium [place] (Spiriva) 1 inh DAILY INH Last administered on 09/19/16 08: 25; Admin Dose 1 INH; Start 09/08/16 at 19:01 Hydralazine HCl (Apresoline) 10 mg Q6H PRN IV SBP >170; Start 09/08/16 at 19:01 Senna (Senokot) 1 tab BID PO ; Start 09/08/16 at 19:01; Status Future Hold Polyethylene Glycol (Miralax) 17 gm DAILY GTB ; Start 09/08/16 at 19:01; Status Future Hold Sertraline HCl (Zoloft) 100 mg HS PO Last administered on 09/18/16 20:06; Admin Dose 100 MG; Start 09/08/16 at 19:01 Zolpidem Tartrate (Ambien) 10 mg HS PRN PO INSOMNIA Last administered on 22:25; Admin Dose 10 MG; Start 09/08/16 at 21:00 Hydrocortisone (Anusol-Hc Supp) 25 mg DAILY PRN [place] HEMORROID PAIN/ITCHING Last administered on 09/09/16 14:59; Admin Dose 25 MG; Start 09/09/16 at 11:00 Levothyroxine Sodium (Synthroid) 88 mcg DAILY@06 PO Last administered on 05:47; Admin Dose 88 MCG; Start 09/11/16 at 06:00 Docosanol (Abreva) 1 applic BID PRN TOP COLD SORE Last administered on 05:38; Admin Dose 1 APPLIC; Start 09/12/16 at 12:30 Acetaminophen/ Hydrocodone Bitart ([place] (5/325)) 1 tab Q4 PRN PO PAIN Last administered on 09/19/16 10:34; Admin Dose 1 TAB; Start 09/13/16 at 13:00 Metoprolol Succinate (Toprol Xl) 50 mg DAILY PO Last administered on 09/19/16 08:26; Admin Dose 50 MG; Start 09/14/16 at 09:00 Docusate Sodium (Colace) 100 mg DAILY PRN PO CONSTIPATION; Start 09/13/16 at 15: 00 Metronidazole (Flagyl) 500 mg Q8 PO Last administered on 09/19/16 05:47; Admin Dose 500 MG; Start 09/13/16 at 22:00; Stop 09/20/16 at 09:00 Enoxaparin Sodium (Lovenox) 30 mg DAILY SC Last administered on 09/19/16 08:28 ; Admin Dose 30 MG; Start 09/17/16 at 09:00 Pantoprazole (Protonix Tab) 40 mg DAILY@06 PO Last administered on 09/19/16 05 :46; Admin Dose 40 MG; Start 09/17/16 at 06:00 Assessment/Plan Additional Assessment/Plan Rehab- Diffuse myopathy in addition to debility secondary to postsurgical recovery and respiratory distress. Continuetherapies as tolerated cold sores- improving GI- status post appendectomy, abdominal discomfort. Will check labs, and abdominal CT has been ordered Respiratory distress secondary to congestive heart failure and chronic obstructive pulmonary disease exacerbations. Postoperative hypotension- improved Renal insufficiency. Hypertension. Hypothyroidism. Hypercholesterolemia. Glaucoma. Hemorrhoids. LAUREN MCLAUGHLIN MD Sep 19, 2016 11:44
[2016-09-19 12:59] LABS: BASOPHILS % 0.1 % (0.0-2.0); EOSINOPHILS # 0.1 10^3/ul (0.0-0.5); EOSINOPHILS % 0.4 % (0.0-7.0); HEMATOCRIT 37.5 % (37.0-47.0); HEMOGLOBIN 12.2 g/dl (12.0-16.0); LYMPHOCYTES # 1.4 10^3/ul (0.8-2.9); MEAN CORPUSCULAR HEMOGLOBIN 28.2 pg (29.0-33.0); MEAN CORPUSCULAR HGB CONC 32.6 g/dl (32.0-37.0); MEAN CORPUSCULAR VOLUME 86.5 fl (82.0-101.0); MEAN PLATELET VOLUME 7.9 fl (7.4-10.4); MONOCYTE # 1.4 10^3/ul (0.3-0.9); NEUTROPHIL # 14.8 10^3/ul (1.6-7.5); NEUTROPHILS % 83.5 % (39.0-77.0); PLATELET COUNT 619 10^3/UL (140-440); RED BLOOD COUNT 4.33 10^6/ul (4.20-5.40); RED CELL DISTRIBUTION WIDTH 15.1 % (11.5-14.5); UNCORRECTED WBC 17.7 10^3/ul (4.8-10.8); WHITE BLOOD COUNT 17.7 10^3/ul (4.8-10.8)
[2016-09-19 13:00] LABS: CONDITION 1; LH ANALYZER COMMENTS 1
[2016-09-19] MEDS ORDERED: IOHEXOL 300MG/ML 150 ML BTL ONE (14:05)
[2016-09-19] MEDS ORDERED: SOD CHLORIDE 0.9% 100 ML ONE (14:05)
--- NOTE | 2016-09-19 14:17 | PN ---
DATE: 09/19/2016 SUBJECTIVE: Ms. Aguila is now postoperative day #14 from a laparoscopic appendectomy. She is hav ing bowel movements, but she is complaining of more acute bilateral lower abdominal pain. OBJECTIVE: VITAL SIGNS: She is afebrile. Vital signs stable. ABDOMEN: Soft, mildly distended, but tenderness to her left as well as right lower quadrant. LABORATORY DATA: Today reveal white count of 17, hematocrit of 37, and platelets of 619. ASSESSMENT AND PLAN: Ms. Aguila is postop day #14 from a laparoscopic appendectomy. 1. We will obtain CT to evaluate the abdomen. I am concerned that she may need new drainage of her pelvic abscess as it was not adequately drained the initial time. Dictated By: TRISTAN MYLES/NTS Conf#: [id number] DID#: [id number]
--- NOTE | 2016-09-19 14:47 | PN ---
Date/Time of Note Date/Time of Note DATE: 09/19/16 TIME: 14:45 Assessment/Plan VTE Prophylaxis VTE Prophylaxis Intervention: SCD's Lines/Catheters [facility] [place] Assessment/Plan Chief Complaint/Hosp Course Assessment/Plan 1. Abdominal pain With CAT scan finding of small amount of free fluid in the lower pelvis with a second encapsulated fluid collection suspicious for a small pelvic abscess. General surgery and soap tender has been consulted, restart antibiotics. 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 COPD (chronic obstructive pulmonary disease) Continue breathing treatment, oxygen as needed 4. Essential hypertension Well-controlled on medical management 5. Hyperlipidemia Continue statin 6. Acquired autoimmune hypothyroidism Continue levothyroxine, We will continue monitor patient closely for recommendation management treatment as clinical course Problems: Subjective 24 Hr Interval Summary Free Text/Dictation Patient continues to complain of having abdominal discomfort No nausea vomiting or diarrhea No bowel movement Exam/Review of Systems Vital Signs Vitals Vital Signs Date Time Temp Pulse Resp B/P Pulse Ox O2 Delivery O2 Flow Rate FiO2 09/19/16 08:50 88 18 130/68 95 Nasal Cannula 3.0 09/19/16 08:00 98.2 Intake and Output 09/18/16 09/18/16 09/19/16 15:00 23:00 07:00 Intake Total 350 ml Balance 350 ml Exam General: The patient is well-developed, Not in acute distress. HEENT: Atraumatic, normocephalic. The pupils are equal and round . Neck: Supple with full range of motion. Chest: Normal expansion of the thorax during inspiration Lungs: Clear to auscultation bilaterally Heart: Normal S1-S2, Regular rhythm and rate. Abdomen: Soft , lower region abdominal tenderness, nondistended , bowel sounds are present. Extremities: Normal to inspection, no edema no cyanosis Neurologic: Normal mental status,The patient is awake, alert and oriented . Results Result Diagram: 09/19/16 1153 09/18/16 0657 Results 24 hrs Laboratory Tests Test 09/19/16 11:53 Basophils # 0.0 Basophils % 0.1 Blood Morphology Comment Eosinophils # 0.1 Eosinophils % 0.4 Hematocrit 37.5 Hemoglobin 12.2 Lymphocytes # 1.4 Lymphocytes % 8.0 L Mean Corpuscular Hemoglobin 28.2 L Mean Corpuscular Hemoglobin Concent 32.6 Mean Corpuscular Volume 86.5 Mean Platelet Volume 7.9 Monocytes # 1.4 H Monocytes % 8.0 Neutrophils # 14.8 H Neutrophils % 83.5 H Nucleated Red Blood Cells # 0.0 Nucleated Red Blood Cells % 0.0 Platelet Count 619 H Red Blood Count 4.33 Red Cell Distribution Width 15.1 H White Blood Count 17.7 #H Medications Medications Current Medications Docusate Sodium (Colace) 100 mg BID PO ; Start 09/08/16 at 19:01; Status Future Hold Ondansetron HCl (Zofran Inj) 4 mg Q6H PRN IV NAUSEA AND/OR VOMITING; Start 09/08 at 19:01 Acetaminophen (Tylenol Tab) 650 mg Q6H PRN PO PAIN LEVEL 1-3 OR FEVER Last administered on 09/12/16 22:10; Admin Dose 650 MG; Start 09/08/16 at 19:01 Buspirone HCl (Buspar) 5 mg BID PO Last administered on 09/19/16 08:26; Admin Dose 5 MG; Start 09/08/16 at 19:01 Dorzolamide/ Timolol (Cosopt) 1 drop BID LEFT EYE Last administered on 08:25; Admin Dose 1 DROP; Start 09/08/16 at 19:01 Latanoprost (Xalatan) 1 drop DAILY LEFT EYE Last administered on 09/19/16 08: 30; Admin Dose 1 DROP; Start 09/08/16 at 19:01 Lorazepam (Ativan) 0.5 mg HS PRN PO ANXIETY; Start 09/08/16 at 19:01 Salmeterol Xinafoate/ Fluticasone (Advair 250/50 Diskus) 1 inh BID INH Last administered on 09/19/16 08:31; Admin Dose 1 INH; Start 09/08/16 at 19:01 Tiotropium [place] (Spiriva) 1 inh DAILY INH Last administered on 09/19/16 08: 25; Admin Dose 1 INH; Start 09/08/16 at 19:01 Hydralazine HCl (Apresoline) 10 mg Q6H PRN IV SBP >170; Start 09/08/16 at 19:01 Senna (Senokot) 1 tab BID PO ; Start 09/08/16 at 19:01; Status Future Hold Polyethylene Glycol (Miralax) 17 gm DAILY GTB ; Start 09/08/16 at 19:01; Status Future Hold Sertraline HCl (Zoloft) 100 mg HS PO Last administered on 09/18/16 20:06; Admin Dose 100 MG; Start 09/08/16 at 19:01 Zolpidem Tartrate (Ambien) 10 mg HS PRN PO INSOMNIA Last administered on 22:25; Admin Dose 10 MG; Start 09/08/16 at 21:00 Hydrocortisone (Anusol-Hc Supp) 25 mg DAILY PRN [place] HEMORROID PAIN/ITCHING Last administered on 09/09/16 14:59; Admin Dose 25 MG; Start 09/09/16 at 11:00 Levothyroxine Sodium (Synthroid) 88 mcg DAILY@06 PO Last administered on 05:47; Admin Dose 88 MCG; Start 09/11/16 at 06:00 Docosanol (Abreva) 1 applic BID PRN TOP COLD SORE Last administered on 05:38; Admin Dose 1 APPLIC; Start 09/12/16 at 12:30 Acetaminophen/ Hydrocodone Bitart ([place] (5/325)) 1 tab Q4 PRN PO PAIN Last administered on 09/19/16 10:34; Admin Dose 1 TAB; Start 09/13/16 at 13:00 Metoprolol Succinate (Toprol Xl) 50 mg DAILY PO Last administered on 09/19/16 08:26; Admin Dose 50 MG; Start 09/14/16 at 09:00 Docusate Sodium (Colace) 100 mg DAILY PRN PO CONSTIPATION; Start 09/13/16 at 15: 00 Metronidazole (Flagyl) 500 mg Q8 PO Last administered on 09/19/16 13:58; Admin Dose 500 MG; Start 09/13/16 at 22:00; Stop 09/20/16 at 09:00 Enoxaparin Sodium (Lovenox) 30 mg DAILY SC Last administered on 09/19/16 08:28 ; Admin Dose 30 MG; Start 09/17/16 at 09:00 Pantoprazole (Protonix Tab) 40 mg DAILY@06 PO Last administered on 09/19/16t 05 :46; Admin Dose 40 MG; Start 09/17/16 at 06:00 YAMILE LARA MD Sep 19, 2016 14:46
[2016-09-19] MEDS ORDERED: AMOXICILLIN/CLAV 875 MG TAB PO SCH (15:00)
--- NOTE | 2016-09-19 16:36 | RADRPT ---
PROCEDURE: CT scan of the abdomen and pelvis with and without IV contrast. CLINICAL INDICATION: Evaluate for abscess. TECHNIQUE: Thin section axial, coronal and sagittal images were performed through the abdomen and pelvis without contrast and then following the injection of 100 cc of Isovue 370. Low-dose protocol imaging was utilized. One or more of the following dose reduction techniques were used: - Automated exposure control. - Adjustment of the mA and/or kV according to patient size. Use of iterative reconstruction technique. Radiation Dose: CTDI: 9.84 and DLP: 479.9 COMPARISON: CT scan abdomen pelvis with IV contrast September 13, 2016. FINDINGS: Lungs and pleural space: Lungs are hyperinflated. There is a sub segmental atelectasis identified i n the right lower lobe on the prior study of improved in the interval. There are persistent plate-l erin densities in the area which may be the result of atelectasis or scarring. There is a 1.3 cm pne umatocele in the left lower lobe which is unchanged. Heart: There is a small pericardial effusion. The heart is normal in size as visualized. The liver, common bile duct and gallbladder: Since the prior study fluid is developed around the cap eric of the liver. Additional fluid is noted in Morison's pouch. There are multiple small hepatic cysts which are stable involving the right left lobes of the liver. There is no gallbladder wall th ickening or cholelithiasis. Pericholecystic fluid is again noted. There is a small calcification a djacent to the ventral wall of the gallbladder which is likely a calcified intra-abdominal lymph nod e or granuloma. Pancreas: Normal. The extrahepatic common bile duct is normal. Gastrointestinal: The stomach is normal containing fluid and air. No gastric wall thickening is sg ntified. There are dilated small bowel loops in the central upper pelvis and left upper abdomen. T here are other nondistended small bowel loops. These findings are most likely result of a partial m echanical small-bowel obstruction. There are clips in the right lower quadrant from prior appendectomy which are unchanged. There is a 1 x 1.3 cm calcification in the right lower abdomen. There is a persistent encapsulated fluid collec tion ventral and to the left of the rectal ampulla suspicious for a pelvic abscess which is smaller when compared to the prior study. Kidneys and bladder : There is a stable benign 1.7 cm cysts off the ventral mid pole of the left kid griffin. There is a stable 2 cm cyst off the upper pole of the left kidney. There are small benign cys ts or mild lipomas in the inferior left kidney. There is a stable benign 1 cm cysts off the medial upper portion of the lower third of the right kid griffin. There is a stable 1 cm cysts in the upper ventral third of the right kidney. No obstructing u reterolith or nephrolith is identified. The urinary bladder is normal. No bladder wall thickening or stone is identified. Adrenal glands: Normal. Spleen: Normal. Lymph nodes: Normal. Reproductive system: The uterus is anteflexed and normal for age. No abnormal adnexal masses are ob served. No free fluid is present in the cul-de-sac. Bony elements: There are degenerative osteophytes in the thoracic and lumbar spine. There is vacuum disk phenomenon and disk space narrowing at L5-S1 without evidence of spondylolysis or spondylolist hesis. No acute bony fracture or bone metastasis is identified. Vasculature: There are vascular calcifications in the lower thoracic and abdominal aorta. There are vascular calcifications in the common iliac arteries, internal and external iliac and common femora l arteries. IMPRESSION: 1. Distal mechanical small bowel obstruction likely the result of adhesions. 2. Status post appendectomy with clips noted adjacent to the cecum. 3. 1.3 x 1 cm calcification in the right pelvis. This could be the result of an appendicolith secon adriana to ruptured appendicitis. 4. 6 cm transverse by 1 cm AP encapsulated fluid collection and may be a pelvic abscess ventral to the rectal ampulla or possibly incompletely distended small bowel loop. Evaluation of the area with sufficient oral contrast would be most helpful in distinguishing between possibilities. 5. Interval development of additional fluid adjacent to the liver since the prior study. 6. There are benign hepatic and renal cysts. 7. Mild hepatomegaly. 8. Pulmonary hyperinflation with chronic interstitial changes in the bases of the lung intermixed w ith areas of plate-like atelectasis or scarring in the right lower lobe. 1.3 cm bleb in the left lo wer lobe. 9. Pericholecystic fluid. 10. Findings were phoned to the floor nurse, Patt who will at the there are Dr. Quinn or Dr. Mott n return my call. Attempts to reach these DrsSahra were unsuccessful at this time. A read back was perf ormed of the most important findings listed above. RPTAT:AAJJ Neftaly Blanco Physician Date Time Electronically viewed and signed by Neftaly Blanco Physician on 09/19/2016 16:36 NAHID/
[2016-09-19 19:23] VITALS: BP 152/72; RESP 19
[2016-09-19] MEDS: DOCOSANOL 2 GM CREAM TOP PRN (19:43)
[2016-09-19] MEDS ORDERED: morphine 4 MG/ML VIAL IV PRN (21:40)
[2016-09-19 21:45] VITALS: BP 142/70; PULSE 86; RESP 18
[2016-09-19] MEDS ORDERED: morphine 10 MG INJ IM PRN (22:00)
--- NOTE | 2016-09-20 00:01 | PN ---
DATE: 09/19/2016 After my visit this morning the patient did have a CT. The CT shows a distal mechanical small-bowel obstruction, likely the result of adhesions, as well as calcification in the right pelvis which cou ld be appendicolith and there is a 6 cm fluid collection in the lower pelvis also as well as fluid a djacent to the liver. ASSESSMENT AND PLAN: Due to these findings on CT and the patient's crampy abdominal pain, I am agus g to transfer the patient to medical/surgical and place an NG tube, IV fluids, n.p.o. I also feel t hat the patient would benefit more highly from return to the OR for laparoscopic, possible open lysi s of adhesions. I think this will be much more beneficial to the patient as it will take care of th e adhesions and also perform an abdominal washout. I discussed this in detail with the patient and her boyfriend as well as the daughter. All benefits, risks, alternatives were discussed in detail, questions answered and the patient elects to proceed. Dictated By: TRISTAN MYLES/VU Conf#: [id number] DID#: [id number]
== END 2016-09-19 22:05 | disposition short-term general hospital (02) | DRG 91 ==
LOC: VRC 18:41
PROVIDERS: ADMIT Physical Medicine & Rehabilitation; ATTEND Family Medicine
PROC: 0J9C3ZZ Drainage of Pelvic Region Subcutaneous Tissue and Fascia, Percutaneous Approach (ICD-10-PCS; principal; 2016-09-14)
DX: G72.89 Other specified myopathies (principal); I50.33 Acute on chronic diastolic (congestive) heart failure; K65.1 Peritoneal abscess; K56.5 Intestinal adhesions [bands] with obstruction (postinfection); I95.81 Postprocedural hypotension; B00.9 Herpesviral infection, unspecified; R53.81 Other malaise; E03.9 Hypothyroidism, unspecified; E78.00 Pure hypercholesterolemia, unspecified; J43.9 Emphysema, unspecified; E03.8 Other specified hypothyroidism; F34.1 Dysthymic disorder; M81.0 Age-related osteoporosis without current pathological fracture; Z87.891 Personal history of nicotine dependence; I11.0 Hypertensive heart disease with heart failure; K59.00 Constipation, unspecified; R19.8 Other specified symptoms and signs involving the digestive system and abdomen; H40.9 Unspecified glaucoma
CPT/HCPCS: 74177; 77012; 80048; 80053; 81001; 81003; 82550; 82553; 82607; 84439; 84443; 84481; 84484; 85025; 85610; 85730; 86803; 87070; 87075; 87081; 87086; 87340; 95852; 97110; 97112; 97116; 97163; 97167; 97530; 97535; J1650; J2250; J2270; J3010; Q9967

== ENCOUNTER 2016-09-19 22:10 | Inpatient (IN) | payer MEDICARE, OTHER ==
[~2016-09-19] VITALS: Ht 160 cm; Wt 58.0 kg
[2016-09-19] MEDS ORDERED: ONDANSETRON 4 MG INJ IV PRN (22:30)
[2016-09-19] MEDS ORDERED: morphine 2 MG INJ IV PRN (22:30)
[2016-09-19 22:37] VITALS: Ht 160 cm; Wt 58.0 kg
[2016-09-19 22:58] VITALS: BP 134/60; RESP 18
[2016-09-19] MEDS ORDERED: morphine 4 MG/ML VIAL IV PRN (23:30)
[2016-09-19] MEDS: PIPER-TAZO 3.375 GM IV (PMX) 100 ML IVPB SCH (23:35)
[2016-09-19] MEDS: D5-NS + KCL 20 MEQ 1,000 ML IV SCH (23:37)
[2016-09-20] VITALS (24 sets, daily range): BP systolic 32–142; BP diastolic 24–79; PULSE 72–115; RESP 16–29
[2016-09-20] MEDS ORDERED: LORAZEPAM 2 MG INJ IV ONE
[2016-09-20] MEDS: PIPER-TAZO 3.375 GM IV (PMX) 100 ML IVPB SCH ×3 (05:19→18:00)
[2016-09-20 05:33] LABS: BASOPHILS % 0.2 % (0.0-2.0); EOSINOPHILS # 0.1 10^3/ul (0.0-0.5); EOSINOPHILS % 1.1 % (0.0-7.0); HEMOGLOBIN 10.6 g/dl (12.0-16.0); LYMPHOCYTES # 1.9 10^3/ul (0.8-2.9); LYMPHOCYTES % 14.6 % (15.0-51.0); MEAN CORPUSCULAR HEMOGLOBIN 28.4 pg (29.0-33.0); MEAN CORPUSCULAR HGB CONC 33.1 g/dl (32.0-37.0); MEAN CORPUSCULAR VOLUME 85.9 fl (82.0-101.0); MEAN PLATELET VOLUME 7.5 fl (7.4-10.4); MONOCYTE # 1.5 10^3/ul (0.3-0.9); MONOCYTES % 11.7 % (0.0-11.0); NEUTROPHIL # 9.4 10^3/ul (1.6-7.5); NEUTROPHILS % 72.4 % (39.0-77.0); PLATELET COUNT 540 10^3/UL (140-440); RED BLOOD COUNT 3.73 10^6/ul (4.20-5.40); RED CELL DISTRIBUTION WIDTH 15.3 % (11.5-14.5); UNCORRECTED WBC 12.9 10^3/ul (4.8-10.8); WHITE BLOOD COUNT 12.9 10^3/ul (4.8-10.8)
[2016-09-20 05:41] LABS: CONDITION 1; LH ANALYZER COMMENTS 1
[2016-09-20 05:52] LABS: POTASSIUM 4.1 mmol/L (3.5-5.1)
[2016-09-20 05:54] LABS: CREATININE 0.75 mg/dl (0.44-1.00)
[2016-09-20 05:55] LABS: CALCIUM 8.8 mg/dl (8.4-10.2)
[2016-09-20] MEDS ORDERED: ENOXAPARIN 40 MG/0.4 ML SYG SC SCH (07:00)
--- NOTE | 2016-09-20 08:15 | HP ---
Date/Time of Note Date/Time of Note DATE: 09/20/16 TIME: 08:03 Assessment/Plan VTE Prophylaxis VTE Prophylaxis Intervention: SCD's Lines/Catheters IV Catheter Type (from Nrsg): Peripheral IV Urinary Cath still in place: No Assessment/Plan Assessment/Plan 1. SBO, s/p lap appy - NPO with IVF - NG tube to suction - Cont abx, anti-emetics and pain mgmt - Surgeon on board 2. Status post recent laparoscopic appendectomy - see above 3. COPD - Bronchodilator, inhaled steroid, oxygen and PRN IV or oral steroid 4. Essential hypertension - Cont med and adjust as needed 5. Hyperlipidemia - Cont med when no longer NPO 6. Hypothyroidism - Cont synthroid when no longer NPO. if prolong NPO status, then will start IV med HPI/ROS Admit Date/Time Admit Date/Time Sep 19, 2016 at 22:10 Hx of Present Illness This is an 86 yo male with hx of HTN, COPD, Hypothyroidism, DL who was initially admitted for acute appendicitis. She is s/p lap appy and was sent to acute Rehab. She is now being admitted for Small Bowel Obstruction. currently NG tube is in place wit suction. PMH/Family/Social Past Medical History Medical History: hypertension, hypothyroid Past Surgical History Past Surgical Hx: appendectomy Social History Alcohol Use: none Smoking Status: Former smoker Drug Use: none Exam/Review of Systems Vital Signs Vitals Vital Signs Date Time Temp Pulse Resp B/P Pulse Ox O2 Delivery O2 Flow Rate FiO2 09/20/16 07:31 97.8 76 18 118/59 95 Intake and Output 09/19/16 09/19/16 09/20/16 15:00 23:00 07:00 Intake Total 700 ml Output Total 250 ml Balance 450 ml Exam Constitutional: alert, distress Head: atraumatic, normocephalic Eyes: EOMI, PERRL ENMT: other (NG Tube in place) Neck: non-tender, supple Respiratory: clear to auscultation, normal air movement Cardiovascular: nl pulses, regular rate and rhythm Gastrointestinal: soft, tender Extremities: normal pulses Labs Result Diagram: 09/20/16 0424 09/20/16 0424 Medications Medications Current Medications Morphine Sulfate (morphine) 2 mg Q2H PRN IV BREAKTHROUGH PAIN; Start 09/19/16 at 22:30 Ondansetron HCl 4 mg 4 mg Q6H PRN IV NAUSEA AND/OR VOMITING; Start 09/19/16 at 22:30 Potassium Chloride/Dextrose/ Sod Cl (D5-NS + KCl 20 Meq) 1,000 ml @ 100 mls/hr Q10H IV Last administered on 09/19/16 23:37; Admin Dose 100 MLS/HR; Start at 22:25 Enoxaparin Sodium 40 mg 40 mg DAILY@07 SC ; Start 09/20/16 at 07:00 Piperacillin Sod/ Tazobactam Sod (Zosyn 3.375gm/ 100 ml (Pmx)) 100 ml @ 200 mls /hr Q6 IVPB Last administered on 09/20/16 05:19; Admin Dose 200 MLS/HR; Start 09/20/16 at 00:00 Morphine Sulfate (morphine) 4 mg Q4H PRN IV SEVERE PAIN LEVEL 7-10; Start 09/19 at 23:30 Salmeterol Xinafoate/ Fluticasone (Advair 250/50 Diskus) 1 inh BID INH ; Start 09/20/16 at 09:00; Status UNV Tiotropium [place] (Spiriva) 1 inh DAILY INH ; Start 09/20/16 at 09:00; Status UNV LISA ENGLISH MD Sep 20, 2016 08:14
[2016-09-20] MEDS: D5-NS + KCL 20 MEQ 1,000 ML IV SCH ×3 (08:25→18:18)
[2016-09-20] MEDS: SALMETEROL/FLUTICASONE 250/50 INHA INH SCH ×4 (09:00→21:00)
[2016-09-20] MEDS: TIOTROPIUM 18 MCG CAPSULE INHA DEV INH SCH ×2 (09:00→11:54)
--- NOTE | 2016-09-20 11:59 | PN ---
Date/Time of Note Date/Time of Note DATE: 09/20/16 TIME: 11:53 Assessment/Plan VTE Prophylaxis VTE Prophylaxis Intervention: SCD's Lines/Catheters IV Catheter Type (from Nrsg): Peripheral IV Urinary Cath still in place: No Assessment/Plan Assessment/Plan 1. Small bowel obstruction s/p Recent Laproscopic Appendectomy 2. intractable abdominal pain 3. COPD 4. Hypertension 5. Hyperlipidemia 6. Hypothyroidism Plan: NG tub ein place, IVF D5NS with KCL all PO home meds are on hold due to NPO Resume eye drops Pain control WBC was high in ER- will follow up on CBC tomorrow currenlty on IV zosyn Subjective 24 Hr Interval Summary Free Text/Dictation NG tube in place, awaitign G surg evaluation Exam/Review of Systems Vital Signs Vitals Vital Signs Date Time Temp Pulse Resp B/P Pulse Ox O2 Delivery O2 Flow Rate FiO2 09/20/16 07:31 97.8 76 18 118/59 95 Intake and Output 09/19/16 09/19/16 09/20/16 15:00 23:00 07:00 Intake Total 700 ml Output Total 250 ml Balance 450 ml Exam Constitutional: alert Psych: no complaints Head: normocephalic Neck: supple Respiratory: clear to auscultation Cardiovascular: regular rate and rhythm Gastrointestinal: other (TTP diffusely, NG tube in place ), soft Neurological: 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 II-XII intact Results Result Diagram: 09/20/164 09/20/16 0424 Results 24 hrs Laboratory Tests Test 09/20/16 04:24 Anion Gap 12 Basophils # 0.0 Basophils % 0.2 Blood Morphology Comment Blood Urea Nitrogen 18 Calcium Level 8.8 Carbon Dioxide Level 27 Chloride Level 108 Creatinine 0.75 Eosinophils # 0.1 Eosinophils % 1.1 Glucose Level 145 # Hematocrit 32.0 L Hemoglobin 10.6 L Lymphocytes # 1.9 Lymphocytes % 14.6 L Mean Corpuscular Hemoglobin 28.4 L Mean Corpuscular Hemoglobin Concent 33.1 Mean Corpuscular Volume 85.9 Mean Platelet Volume 7.5 Monocytes # 1.5 H Monocytes % 11.7 H Neutrophils # 9.4 H Neutrophils % 72.4 Nucleated Red Blood Cells # 0.0 Nucleated Red Blood Cells % 0.0 Platelet Count 540 H Potassium Level 4.1 Red Blood Count 3.73 L Red Cell Distribution Width 15.3 H Sodium Level 143 White Blood Count 12.9 #H Medications Medications Current Medications Morphine Sulfate (morphine) 2 mg Q2H PRN IV BREAKTHROUGH PAIN; Start 09/19/16 at 22:30 Ondansetron HCl 4 mg 4 mg Q6H PRN IV NAUSEA AND/OR VOMITING; Start 09/19/16 at 22:30 Potassium Chloride/Dextrose/ Sod Cl (D5-NS + KCl 20 Meq) 1,000 ml @ 100 mls/hr Q10H IV Last administered on 09/19/16 23:37; Admin Dose 100 MLS/HR; Start at 22:25 Enoxaparin Sodium 40 mg 40 mg DAILY@07 SC ; Start 09/20/16 at 07:00 Piperacillin Sod/ Tazobactam Sod (Zosyn 3.375gm/ 100 ml (Pmx)) 100 ml @ 200 mls /hr Q6 IVPB Last administered on 09/20/16 05:19; Admin Dose 200 MLS/HR; Start 09/20/16 at 00:00 Morphine Sulfate (morphine) 4 mg Q4H PRN IV SEVERE PAIN LEVEL 7-10 Last administered on 09/20/16 08:20; Admin Dose 4 MG; Start 09/19/16 at 23:30 Salmeterol Xinafoate/ Fluticasone (Advair 250/50 Diskus) 1 inh BID INH ; Start 09/20/16 at 09:00 Tiotropium [place] (Spiriva) 1 inh DAILY INH ; Start 09/20/16 at 09:00 MADISYN MANUEL MD Sep 20, 2016 11:59
[2016-09-20] MEDS: DORZOLAMIDE/TIMOLOL 10 ML OPH LEFT EYE SCH ×2 (14:20→23:24)
[2016-09-20] MEDS: LATANOPROST 0.005% 2.5 ML OPH LEFT EYE SCH (14:20)
--- NOTE | 2016-09-20 14:26 | CONS ---
Date/Time of Note Date/Time of Note DATE: 09/20/16 TIME: 14:24 Assessment/Plan Assessment/Plan Additional Assessment/Plan Compensated diastolic congestive heart failure Acute appendicitis status post surgery Preserved ejection fraction Hypertension Small bowel obstruction -Patient with evidence of small bowel obstruction. Undergoing surgical evaluation and management. No evidence of acute decompensated congestive heart failure at the current time. Consultation Date/Type/Reason Admit Date/Time Sep 19, 2016 at 22:10 Initial Consult Date Type of Consultation: cv 24 HR Interval Summary Free Text/Dictation Patient denies shortness of breath. Concern for small bowel obstruction Exam/Review of Systems Vital Signs Vitals Vital Signs Date Time Temp Pulse Resp B/P Pulse Ox O2 Delivery O2 Flow Rate FiO2 09/20/16 07:31 97.8 76 18 118/59 95 Intake and Output 09/19/16 09/19/16 09/20/16 15:00 23:00 07:00 Intake Total 700 ml Output Total 250 ml Balance 450 ml Exam No apparent distress Constitutional: alert, oriented Head: normocephalic Neck: supple Respiratory: other (Coarse breath sounds bilaterally, no wheezing) Cardiovascular: other (S1-S2), regular rate and rhythm Gastrointestinal: bowel sounds, non-tender, soft Extremities: other (No edema) Results Result Diagram: 09/20/16 0424 09/20/16 0424 Results 24 hrs Laboratory Tests Test 09/20/16 04:24 Anion Gap 12 Basophils # 0.0 Basophils % 0.2 Blood Morphology Comment Blood Urea Nitrogen 18 Calcium Level 8.8 Carbon Dioxide Level 27 Chloride Level 108 Creatinine 0.75 Eosinophils # 0.1 Eosinophils % 1.1 Glucose Level 145 # Hematocrit 32.0 L Hemoglobin 10.6 L Lymphocytes # 1.9 Lymphocytes % 14.6 L Mean Corpuscular Hemoglobin 28.4 L Mean Corpuscular Hemoglobin Concent 33.1 Mean Corpuscular Volume 85.9 Mean Platelet Volume 7.5 Monocytes # 1.5 H Monocytes % 11.7 H Neutrophils # 9.4 H Neutrophils % 72.4 Nucleated Red Blood Cells # 0.0 Nucleated Red Blood Cells % 0.0 Platelet Count 540 H Potassium Level 4.1 Red Blood Count 3.73 L Red Cell Distribution Width 15.3 H Sodium Level 143 White Blood Count 12.9 #H Medications Medications Current Medications Morphine Sulfate (morphine) 2 mg Q2H PRN IV BREAKTHROUGH PAIN; Start 09/19/16 at 22:30 Ondansetron HCl 4 mg 4 mg Q6H PRN IV NAUSEA AND/OR VOMITING; Start 09/19/16 at 22:30 Potassium Chloride/Dextrose/ Sod Cl (D5-NS + KCl 20 Meq) 1,000 ml @ 100 mls/hr Q10H IV Last administered on 09/20/16 11:59; Admin Dose 100 MLS/HR; Start at 22:25 Enoxaparin Sodium 40 mg 40 mg DAILY@07 SC ; Start 09/20/16 at 07:00 Piperacillin Sod/ Tazobactam Sod (Zosyn 3.375gm/ 100 ml (Pmx)) 100 ml @ 200 mls /hr Q6 IVPB Last administered on 09/20/16 11:54; Admin Dose 200 MLS/HR; Start 09/20/16 at 00:00 Morphine Sulfate (morphine) 4 mg Q4H PRN IV SEVERE PAIN LEVEL 7-10 Last administered on 09/20/16 08:20; Admin Dose 4 MG; Start 09/19/16 at 23:30 Salmeterol Xinafoate/ Fluticasone (Advair 250/50 Diskus) 1 inh BID INH Last administered on 09/20/16 11:56; Admin Dose 1 INH; Start 09/20/16 at 09:00 Tiotropium [place] (Spiriva) 1 inh DAILY INH Last administered on 09/20/16 11: 54; Admin Dose 1 INH; Start 09/20/16 at 09:00 Dorzolamide/ Timolol (Cosopt) 1 drop BID LEFT EYE Last administered on 14:20; Admin Dose 1 DROP; Start 09/20/16 at 13:30 Latanoprost (Xalatan) 1 drop DAILY LEFT EYE Last administered on 09/20/16 14: 20; Admin Dose 1 DROP; Start 09/20/16 at 13:30 Taco Castillo DO Sep 20, 2016 14:26
[2016-09-20] MEDS ORDERED: FENTAnyl 50 MCG/ML VIAL ONE ×2 (17:04→20:41)
[2016-09-20] MEDS ORDERED: ONDANSETRON 4 MG INJ IV PRN ×3 (18:00→21:30)
[2016-09-20] MEDS ORDERED: MEPERIDINE 25 MG INJ IV PRN ×2 (18:00→21:30)
[2016-09-20] MEDS ORDERED: FENTAnyl 50 MCG/ML VIAL IV PRN ×2 (18:00→21:30)
[2016-09-20] MEDS ORDERED: METOCLOPRAMIDE 10 MG INJ IV PRN ×2 (18:00→21:30)
[2016-09-20] MEDS ORDERED: HYDROmorphONE (0.2 MG/ML) 10ML SYG IV PRN (18:00)
[2016-09-20] MEDS ORDERED: DIPHENHYDRAMINE 50 MG INJ IV PRN (18:00)
[2016-09-20] MEDS ORDERED: morphine (1 MG/ML) 10ML SYRINGE IV PRN ×5 (18:00→21:30)
[2016-09-20] MEDS ORDERED: PHENYLephrine (100 MCG/ML) 5ML SYG ONE ×2 (19:05→19:43)
[2016-09-20] MEDS ORDERED: ROCURONIUM 50 MG INJ ONE (19:06)
[2016-09-20] MEDS ORDERED: SUCCINYLCHOLINE CHLORIDE 100 MG/5 ML SYG IV ONE (19:06)
[2016-09-20] MEDS ORDERED: LIDOCAINE 2% (SDV) 5 ML INJ ONE (19:06)
[2016-09-20] MEDS ORDERED: PROPOFOL 40 ML ONE (19:07)
[2016-09-20] MEDS ORDERED: NEOSTIGMINE 3 MG/3 ML SYRINGE ONE (19:07)
[2016-09-20] MEDS ORDERED: GLYCOPYRROLATE 1 MG INJ ONE (19:07)
[2016-09-20] MEDS ORDERED: VASOPRESSIN 20 UNITS INJ ONE (19:43)
[2016-09-20] MEDS ORDERED: ROPIVACAINE 0.5 % 30 ML VIAL ONE (20:14)
--- NOTE | 2016-09-20 20:26 | RADRPT ---
PROCEDURE: XR Abdomen. CLINICAL INDICATION: Missing scissors in surgery. [facility] TECHNIQUE: 2 AP views of the abdomen are available for review. COMPARISON: CT abdomen and pelvis of 09/19/2016 FINDINGS: No radiopaque scissors is seen. There is a left pelvic percutaneous drain with the tip in the right lateral mid abdomen. There is appearance of an additional drain or possibly retained sponge in the right lateral pelvis. Santos catheter apparent. Phlebolith or other calcification with central luce ncy measuring 1.2 cm in the right mid pelvis. Surgical clips in right upper pelvis. Nasogastric tub e in stomach. Appearance of approximate 4.3 cm diameter dilated small bowel loop in the left mid abd omen. Air is also seen in nondilated small and large bowel. Soft tissue air consistent with surgery . IMPRESSION: No radiopaque scissors seen. The extreme right lateral aspect of the pelvis is not included in the imaging field. Left pelvic percutaneous drain with the tip in the right lateral mid abdomen. There is appearance of an additional drain or possibly retained sponge in the right lateral pelvis. Discu ssed with operating room nurse Radha at 08:20 p.m. on 09/20/2016. RPTAT: HJES .Horacio Cameron MD, Date Time Electronically viewed and signed by .Horacio Cameron MD, on 09/20/2016 20:26 .S/
[2016-09-20] MEDS ORDERED: EPHEDrine SULFATE 50 MG/5 ML SYG ONE (20:53)
[2016-09-20] MEDS ORDERED: NORepinephrine 8MG/250 ML (PMX 250 ML ONE (20:56)
[2016-09-20] MEDS ORDERED: EPHEDrine SULFATE 50 MG/5 ML SYG IV PRN ×2 (21:00→21:30)
[2016-09-20] MEDS: NORepinephrine 8MG/250 ML (PMX 250 ML IV SCH ×2 (21:13→21:30)
[2016-09-20] MEDS: HYDROmorphONE (0.2 MG/ML) 10ML SYG IV PRN ×2 (21:28→21:33)
[2016-09-20] MEDS ORDERED: LEVALBUTEROL (NEB) 0.63 MG/3 ML AMP HHN ONE (21:30)
[2016-09-20] MEDS ORDERED: ALBUTEROL 0.5% (NEB) 2.5 MG/0.5 ML AMP INH ONE (21:30)
[2016-09-20] MEDS ORDERED: D5-NS + KCL 20 MEQ 1,000 ML IV SCH (21:30)
[2016-09-20] MEDS ORDERED: LEVALBUTEROL (NEB) 1.25 MG/0.5 ML AMP HHN ONE (21:30)
[2016-09-20] MEDS ORDERED: RACEPINEPHRINE 2.25%(NEB) 0.5 ML AMP HHN ONE (21:30)
[2016-09-20] MEDS ORDERED: IPRATROPIUM (NEB) 0.5 MG/2.5 ML AMP HHN ONE (21:30)
[2016-09-20] MEDS ORDERED: SOD CHLORIDE 0.9% 500 ML IV ONE (23:00)
[2016-09-21] VITALS (90 sets, daily range): BP systolic 57–125; BP diastolic 33–74; PULSE 75–124; RESP 16–26
[2016-09-21] MEDS ORDERED: PIPER-TAZO 3.375 GM IV (PMX) 100 ML IVPB SCH
[2016-09-21] MEDS: morphine 2 MG INJ IV PRN ×2 (00:01→01:28)
[2016-09-21] MEDS: PIPER-TAZO 3.375 GM IV (PMX) 100 ML IVPB SCH ×4 (01:33→17:39)
[2016-09-21] MEDS: morphine 4 MG/ML VIAL IV PRN ×5 (02:42→17:53)
[2016-09-21 04:56] LABS: HEMATOCRIT 36.3 % (37.0-47.0); HEMOGLOBIN 11.7 g/dl (12.0-16.0); LYMPHOCYTES # 0.7 10^3/ul (0.8-2.9); LYMPHOCYTES % 2.9 % (15.0-51.0); MEAN CORPUSCULAR HEMOGLOBIN 28.3 pg (29.0-33.0); MEAN CORPUSCULAR HGB CONC 32.4 g/dl (32.0-37.0); MEAN CORPUSCULAR VOLUME 87.5 fl (82.0-101.0); MONOCYTE # 2.4 10^3/ul (0.3-0.9); MONOCYTES % 9.6 % (0.0-11.0); NEUTROPHIL # 21.7 10^3/ul (1.6-7.5); NEUTROPHILS % 87.5 % (39.0-77.0); PLATELET COUNT 659 10^3/UL (140-440); RED BLOOD COUNT 4.14 10^6/ul (4.20-5.40); RED CELL DISTRIBUTION WIDTH 15.9 % (11.5-14.5); UNCORRECTED WBC 24.8 10^3/ul (4.8-10.8); WHITE BLOOD COUNT 24.8 10^3/ul (4.8-10.8)
[2016-09-21 05:02] LABS: INR 1.16; PROTIME 14.8 Sec (12.2-14.2); PT RATIO 1.2
[2016-09-21 05:03] LABS: PARTIAL THROMBOPLASTIN TIME 25.1 Sec (25.0-35.0)
[2016-09-21 05:08] LABS: ALBUMIN 2.3 g/dl (3.3-4.9)
[2016-09-21 05:09] LABS: POTASSIUM 5.5 mmol/L (3.5-5.1)
[2016-09-21 05:11] LABS: ALBUMIN/GLOBULIN RATIO 0.76; BILIRUBIN,INDIRECT 0.3 mg/dl (0-1.1); BILIRUBIN,TOTAL 0.3 mg/dl (0.2-1.3); CREATININE 1.19 mg/dl (0.44-1.00); TOTAL PROTEIN 5.3 g/dl (6.1-8.1)
[2016-09-21 05:12] LABS: CALCIUM 7.6 mg/dl (8.4-10.2)
[2016-09-21] MEDS ORDERED: SOD CHLORIDE 0.9% 1,000 ML IV ONE ×3 (05:30→13:30)
[2016-09-21 05:44] LABS: CONDITION 1; LH ANALYZER COMMENTS 1
[2016-09-21] MEDS: PANTOPRAZOLE 40 MG INJ IV SCH (06:45)
[2016-09-21] MEDS: ENOXAPARIN 40 MG/0.4 ML SYG SC SCH (07:00)
[2016-09-21] MEDS ORDERED: DEXTROSE 5%-0.45% NACL 1,000 ML IV SCH ×2 (07:00→19:00)
--- NOTE | 2016-09-21 07:02 | OPR ---
DATE OF OPERATION: 09/20/2016 PREOPERATIVE DIAGNOSIS: Small-bowel obstruction and abdominal abscess. POSTOPERATIVE DIAGNOSIS: Small-bowel obstruction and abdominal abscess. PROCEDURES: 1. Diagnostic laparoscopy. 2. Exploratory laparotomy. 3. Abdominal washout. 4. Small bowel resection x2. SURGEON: Trisatn Dhaliwal MD AUTO REPAIR TECHNICIAN: None. ANESTHESIA: General endotracheal. ANESTHESIOLOGIST: Dr. Laura ESTIMATED BLOOD LOSS: 200 mL. COMPLICATIONS: None. DRAINS: A 19-Mongolian round Daniel drain in the pelvis and right lower quadrant. SPECIMENS: Ileum and distal ileum. FINDINGS: 1. Extensive loculated interloop abscesses in the right lower quadrant. 2. A small bowel obstruction with a definite transition point in the right lower quadrant. 3. Free fluid in the right upper quadrant. 4. Purulent fluid in the pelvis. INDICATIONS: Ms. Aguila is an 86-year-old female status post a laparoscopic appendectomy for perforated appendicitis approximately 2 weeks ago. She has had a somewhat odalis postoperative course. She developed a pelvic abscess, which was drained inadequately, a long course of tenesmus, and eventually a small-bowel obstruction. Her WBC also began to increase to 17. A CT revealed interloop abscesses, pelvic adhesions, and free fluid in the pelvis and around the liver. Due to the fact that she really did not recover in the normal standard fashion after appendectomy and over the last 2 to 3 days her clinical picture has worsened and the fact that she developed a new bowel obstruction as well as a rising white count, I felt she would benefit from an abdominal washout and lysis of adhesions. I discussed laparoscopic, possible open lysis of adhesions with the patient and her boyfriend and her daughter. All benefits , risks, alternatives were discussed in detail, questions answered, and patient elected to proceed. DESCRIPTION OF PROCEDURE: The patient was brought to the operating room and placed supine on the table. After preoperative antibiotics and SCDs were placed , the patient was intubated, a Santos catheter was inserted, an NG tube was placed. The abdomen was cleaned, prepped, and draped in usual sterile fashion. I opened the 5 mm umbilical trocar site and using a 5 mm laparoscope-containing trocar, I entered the abdomen under direct vision and insufflated to 15 mmHg of CO2. I then placed another 5 mm trocar in the left lower quadrant. At this point, I noted there were a lot of adhesions to the right lower quadrant and an obvious transition point in the right lower quadrant. I could not progress laparoscopically. I also noted there was a fair amount of free fluid in the pelvis. I therefore made a midline incision centered on the umbilicus and, using electrocautery, I dissected down through the abdominal wall until I entered the abdomen and placed a Gelport. I then placed a 5mm trocar in the right upper quadrant. I attempted to break up the loculations bluntly. At this point, I got into a few interloop abscesses in the right lower quadrant, but there was definitely matted, firm, adherent bowel in the right lower quadrant and I could not proceed with just the hand assist. Thus, I extended my incision inferiorly and, using electrocautery, opened the abdominal wall in the midline more. At this point, I could easily see the abdomen and identified the dilated proximal small bowel, which I brought out through the midline wound and I continued tracing this distally. At this point, I noted there was a group of matted loops of small bowel persisting in the right lower quadrant. There was very obvious transition point here as well. There was completely collapsed distal ileum from the RLQ. Using finger fracture as well as blunt dissection, I was able to free up most of the small bowel and finally free up the entire small bowel. As I stated, there were a few interloop abscesses and the bowel was really matted down and twisted in this area. I was also able to bring some of the loops out of the pelvis and irrigated the pelvis. At this point, I ran the bowel from Treitz to cecum. There were 2 areas of small bowel, which were not very healthy. Therefore, I decided to perform a small bowel resection x2 on these 2 separate areas. I should state that in the first section of bowel there was a small enterotomy created during the dissection. I then performed a small bowel resection by transecting the bowel proximal and distal to the area of the enterotomy with multiple serosal tears. The proximal and distal bowel was viable and healthy. I transected the bowel proximally and distally with a 75 mm Endo linear cutter blue load. I then serially clamped, tied, and divided the intervening mesentery with 2-0 silk ties. This bowel was passed off the field as specimen. I then performed a [id number] functional end-to- end double stapled anastomosis with a 75 mm Endo linear cutter blue load. The enterotomy was closed with a TA 60 stapler. The anastomosis was hemostatic, was airtight. I was able to pass succuss through the anastomosis. It passed without difficulty and no leak was noted. I placed a 3-0 silk suture on the crotch of the anastomosis and I closed the mesentery with interrupted 3-0 silk sutures. I turned my attention to the more distal ileum where there was this area of poorly vasculized small bowel and I just felt it would be better resect this area of small bowel. Therefore, I chose a spot proximal and distal to the area that involved small bowel and divided the small bowel with a 75 mm Endo linear cutter blue load was proximally and distally. The intervening mesentery was then serially clamped, tied, divided with 2-0 silk ties. The small bowel was passed off the field as specimen. A [id number] functional end-to-end double stapled anastomosis was then performed with a [id number]-75 stapler and the enterotomy was closed with the TA 60 stapler. A 3-0 silk suture was placed in the crotch and the mesentery was closed with interrupted 3-0 silk sutures. I then passed enteric contents through the anastomosis. There was no leak noted. It was without tension and hemostatic. I then copiously irrigated out the abdomen, all 4 quadrants, with copious amounts of fluid until effluent was clear. I placed a 19-Mongolian round Daniel drain in the pelvis and the right pericolic gutter. This exited through the left lower quadrant 5 mm trocar site and was sutured to the skin with a 2-0 nylon. I ran the bowel, 2 more times from Treitz to terminal ileum. All the bowel was completely viable. There were no enterotomies or serotomies noted in the bowel and both anastomoses looked well. I then returned the small bowel to the abdomen. I closed the midline wound with 2-0 looped PDS sutures, 1 superiorly and 1 inferiorly. The wound was then irrigated and closed with interrupted 4-0 Monocryl sutures. I packed between the closure with 1 inch packing gauze. A 2x2 gauze and Tegaderm was placed over the midline wound and 2x2 gauze and Tegaderm was placed in the left lower quadrant STEPHANIE drain site. The patient tolerated procedure well, was extubated in the OR, and transferred to the recovery room in stable condition. Dictated By: TRISTAN DHALIWAL MD MAL/NTS Conf#: [id number] DID#: [id number] CC: LISA ENGLISH MD;*EndCC* MTDD
[2016-09-21] MEDS: SALMETEROL/FLUTICASONE 250/50 INHA INH SCH ×2 (08:17→21:36)
[2016-09-21] MEDS: DORZOLAMIDE/TIMOLOL 10 ML OPH LEFT EYE SCH ×2 (08:18→21:36)
[2016-09-21] MEDS: TIOTROPIUM 18 MCG CAPSULE INHA DEV INH SCH (08:18)
[2016-09-21] MEDS: LATANOPROST 0.005% 2.5 ML OPH LEFT EYE SCH (09:00)
[2016-09-21] MEDS ORDERED: LIDOCAINE 1% (MDV) 20 ML INJ SC ONE (09:30)
[2016-09-21 09:45] LABS: Arterial Base Excess -10.3 mmol/L (-3.0-3); Arterial COHb 0.3 % (0.0-3.0); Arterial Fraction of Oxyhgb 92.5 % (93.0-99.0); Arterial HCO3 15.6 mmol/L (22.0-26.0); Arterial MetHb 0.2 % (0.0-1.5); Arterial Total Hemglobin 10.7 g/dl (12.0-18.0); MODE NASAL CANNULA
--- NOTE | 2016-09-21 10:34 | PN ---
Date/Time of Note Date/Time of Note DATE: 09/21/16 TIME: 10:21 Assessment/Plan VTE Prophylaxis VTE Prophylaxis Intervention: SCD's Lines/Catheters IV Catheter Type (from Nrs): A Line Urinary Cath still in place: Yes Reason Cath still needed: other (indicate) Assessment/Plan Chief Complaint/Hosp Course Assessment/Plan 1. Small bowel obstruction s/p Recent Laproscopic Appendectomy Status post small bowel resection x2. Continue postsurgical care, IV fluid, NG tube, pain management and IV antibiotics 2. Sepsis Likely secondary to intra-abdominal abscess and postoperatively infectious disease doctor has been consulted, continue Zosyn and vancomycin Follow-up blood culture, continue aggressive IV fluids 3. Hyperkalemia Continue IV fluid, nephrology has been consulted, follow-up electrolytes in a.m. 4 . Abdominal abscess. Status post drainage by interventional radiologist and Diagnostic laparoscopy, Exploratory laparotomy and abdominal washout. Continue aggressive IV antibiotics 3. COPD 4. History of hypertension At this time patient is hypotensive, we will hold all blood pressure medications 5. Hyperlipidemia 6. Hypothyroidism We will continue monitor patient closely for recommendation management treatment as clinical course Problems: Subjective 24 Hr Interval Summary Free Text/Dictation Postop day #[address] On pressors via levo fed at 7 rommel Exam/Review of Systems Vital Signs Vitals Vital Signs Date Time Temp Pulse Resp B/P Pulse Ox O2 Delivery O2 Flow Rate FiO2 09/21/16 08:00 121 09/21/16 07:15 18 93/55 94 Nasal Cannula 09/21/16 04:00 97.9 09/21/16 00:42 2.0 09/21/16 00:26 31 Intake and Output 09/20/16 09/20/16 09/21/16 15:00 23:00 07:00 Intake Total 1100 ml 1600 ml 840.625 ml Output Total 740 ml 190 ml Balance 1100 ml 860 ml 650.625 ml Exam General: The patient is well-developed, Not in acute distress. HEENT: Atraumatic, normocephalic. The pupils are equal and round . NG tube in place Neck: Supple with full range of motion. Chest: Normal expansion of the thorax during inspiration Lungs: Clear to auscultation bilaterally Heart: Normal S1-S2, Regular rhythm and rate. Abdomen: Soft , lower abdominal tenderness , nondistended , bowel sounds are hypoactive. Surgical site is dry and clean Extremities: Normal to inspection, no edema no cyanosis Neurologic: Normal mental status,The patient is awake, alert and oriented . Results Result Diagram: 09/21/16 0330 09/21/16 0330 Results 24 hrs Laboratory Tests Test 09/21/16 03:30 09/21/16 09:23 Activated Partial Thromboplast Time 25.1 Alanine Aminotransferase (ALT/SGPT) 39 Albumin 2.3 L Albumin/Globulin Ratio 0.76 Alkaline Phosphatase 34 L Anion Gap 16 Aspartate Amino Transf (AST/SGOT) 57 H Basophils # 0.0 Basophils % 0.0 Blood Morphology Comment Blood Urea Nitrogen 18 Calcium Level 7.6 L Carbon Dioxide Level 19 L Chloride Level 114 H Creatinine 1.19 H Direct Bilirubin 0.00 Eosinophils # 0.0 Eosinophils % 0.0 Globulin 3.00 Glucose Level 176 Hematocrit 36.3 L Hemoglobin 11.7 L INR International Normalized Ratio 1.16 Indirect Bilirubin 0.3 Lymphocytes # 0.7 L Lymphocytes % 2.9 L Mean Corpuscular Hemoglobin 28.3 L Mean Corpuscular Hemoglobin Concent 32.4 Mean Corpuscular Volume 87.5 Mean Platelet Volume 8.0 Monocytes # 2.4 H Monocytes % 9.6 Neutrophils # 21.7 H Neutrophils % 87.5 H Nucleated Red Blood Cells # 0.0 Nucleated Red Blood Cells % 0.0 Platelet Count 659 #H Potassium Level 5.5 H Prothrombin Time 14.8 H Prothrombin Time Ratio 1.2 Red Blood Count 4.14 L Red Cell Distribution Width 15.9 H Sodium Level 143 Total Bilirubin 0.3 Total Protein 5.3 L White Blood Count 24.8 #H Arterial Blood HCO3 15.6 L Arterial Blood Base Excess -10.3 L Arterial Blood Oxygen Saturation 93.0 L Daniel Test N/A Arterial Blood Gas Puncture Site A-Line Arterial Blood Carboxyhemoglobin 0.3 Arterial Blood Date Drawn 09/21/2016 9:35:44 AM Arterial Blood Methemoglobin 0.2 Arterial Blood pCO2 (Temp correct) 34.7 L Arterial Blood pH (Temp corrected) 7.272 *L Arterial Blood pO2 (Temp corrected) 71.1 L Blood Gas A-a O2 Differential 102.0 H Blood Gas Critical Value Read Back N CHAPLAIN MCALLISTER Blood Gas Modality NASAL CANNULA Blood Gas Notified Time 09/21/2016 9:44:57 AM Blood Gas Notified Whom JLD Blood Gas Specimen Source Blood arterial Blood Gas Temperature 37.0 FiO2 30.0 Oxyhemoglobin Percent 92.5 L Total Hemoglobin 10.7 L Medications Medications Current Medications Salmeterol Xinafoate/ Fluticasone (Advair 250/50 Diskus) 1 inh BID INH Last administered on 09/21/16 08:17; Admin Dose 1 INH; Start 09/20/16 at 09:00 Tiotropium [place] (Spiriva) 1 inh DAILY INH Last administered on 09/21/16 08: 18; Admin Dose 1 INH; Start 09/20/16 at 09:00 Dorzolamide/ Timolol (Cosopt) 1 drop BID LEFT EYE Last administered on 08:18; Admin Dose 1 DROP; Start 09/20/16 at 13:30 Latanoprost (Xalatan) 1 drop DAILY LEFT EYE Last administered on 09/20/16 14: 20; Admin Dose 1 DROP; Start 09/20/16 at 13:30 Ondansetron HCl (Zofran Inj) 4 mg Q6H PRN IV NAUSEA AND/OR VOMITING; Start at 20:30 Pantoprazole (Protonix Iv) 40 mg DAILY@06 IV Last administered on 09/21/16 06: 45; Admin Dose 40 MG; Start 09/21/16 at 06:00 Enoxaparin Sodium 40 mg 40 mg DAILY@07 SC Last administered on 09/21/16 07:00 ; Admin Dose 40 MG; Start 09/21/16 at 07:00 Norepinephrine 250 ml @ 1.875 mls/ hr TITRATE IV Last administered on 21:30; Admin Dose 3.75 MLS/HR; Start 09/20/16 at 21:00 Piperacillin Sod/ Tazobactam Sod (Zosyn 3.375gm/ 100 ml (Pmx)) 100 ml @ 200 mls /hr Q6 IVPB Last administered on 09/21/16 06:45; Admin Dose 200 MLS/HR; Start 09/21/16 at 00:45 Morphine Sulfate 4 mg 4 mg Q2H PRN IV PAIN LEVEL 6-10 Last administered on 09/21 05:06; Admin Dose 4 MG; Start 09/21/16 at 02:30 Dextrose/Sodium Chloride 1,000 ml @ 125 mls/hr Q8H IV Last administered on t 06:47; Admin Dose 125 MLS/HR; Start 09/21/16 at 07:00; Stop 09/21/16 at 19:00 Dextrose/Sodium Chloride 1,000 ml @ 75 mls/hr [id number] IV ; Start 09/21/16 at 19 :00 Sodium Bicarbonate/ Dextrose/Sodium Chloride (Na Bicarb/D5-1/ 2ns) 1,100 ml @ 100 mls/hr Q11H IV ; Start 09/21/16 at 11:00 YAMILE LARA MD Sep 21, 2016 10:33
--- NOTE | 2016-09-21 11:04 | CONS ---
DATE OF ADMISSION: 09/19/2016 DATE OF CONSULTATION: 09/21/2016 REFERRING PHYSICIAN: Dr. Rodrgiez TYPE OF CONSULTATION: Nephrology. REASON FOR CONSULTATION: Acute hyperkalemia, metabolic acidosis, prerenal azotemia. HISTORY OF PRESENT ILLNESS: This is an 86-year-old female who has a past medical history of COPD, h istory of hypertension, hyperlipidemia, hypothyroidism who presented with small bowel obstructions. She also had a possible sepsis secondary to intra-abdominal abscess postoperatively. Recently, the patient underwent laparoscopic appendectomy. This time, due to her small bowel obstruction, the julio hua was seen by general surgery and was taken to the emergent operating room and had an explorator y laparotomy and abdominal washout so that postoperatively the patient gets admitted to the ICU, has an A-line placed, she is noted to have a potassium of 5.5, bicarbonate is 19, which has been droppe d from 27 to 19 and creatinine bumped to 1.2. Renal has been consulted for acute kidney injury, hyp erkalemia, metabolic acidosis. REVIEW OF SYSTEMS: Unable to obtain from the patient. PAST MEDICAL HISTORY: Notable for COPD, hypertension, hyperlipidemia, hypothyroidism. PAST SURGICAL HISTORY: History of recent laparoscopic appendectomy. SOCIAL HISTORY: No smoking, alcohol or recreational drug use. FAMILY HISTORY: Noncontributory. PHYSICAL EXAMINATION: VITAL SIGNS: Temperature 98.9 up 100.6, heart rate up to 121, respiration 18, blood pressure 93/55, saturation is 94% on nasal cannula. GENERAL: Awake, alert, in moderate distress. HEENT: Normal. Oropharynx clear. NG tube in place. NECK: Supple, no JVD, no lymphadenopathy. LUNGS: Decreased breath sounds at both lung bases with minimal expiratory wheezing present. HEART: S1, S2, tachycardia, no murmur. ABDOMEN: Soft. EXTREMITIES: The patient has an exploratory laparotomy dressing on and drain in place. NEUROLOGICAL: Nonfocal, intact. PSYCHIATRIC: Appropriate affect and mood. LABORATORY DATA/DIAGNOSTIC IMAGIN. Sodium 143, potassium 5.5, chloride 114, bicarbonate 19, BUN 18, creatinine 1.19, glucose 176, c alcium 7.6, albumin is 2.3. WBC which bumped up from 12.9 to 24.8, hemoglobin 11.7, platelet count is 659. PT 14.8, PTT 25.1. ABG shows a pH of 7.27, pCO2 34 by a pO2 of 71 and bicarbonate of 15.6 on a blood gas today, morning. 2. Abdominal x-ray which shows a small bowel ileus and obstructions on the previous on 09/20/2016. IMPRESSION: This is an 86-year-old female who had a recent laparoscopic appendectomy done presented with a small-bowel obstruction. The patient was taken to the operating room for exploratory laparo dolores and abdominal washout. She is currently getting admitted back to the ICU with: 1. Sepsis. 2. Acute kidney injury secondary to acute tubular necrosis from sepsis. 3. Acute hyperkalemia with metabolic acidosis likely secondary to acute kidney injury. 4. Small bowel obstructions status post exploratory laparotomy and abdominal washout, postop day #1 . 5. History of recent laparoscopic appendectomy. 6. History of hypertension 7. History of chronic obstructive pulmonary disease. 8. History of hypothyroidism. PLAN: 1. Thank you, Dr. Rodrigez, for this consultation. I will order the patient's urine studies inclu ding a urine sodium, urine protein, urine creatinine, urine eosinophils. 2. Renal ultrasound will be ordered. Further workup of acute kidney injury. 3. Plan is to start the patient on sodium bicarbonate drip to run at 100 mL per hour and monitor th e sodium. I will order another the BMP at 3:00 p.m. to follow up on the patient's creatinine, potas sium and bicarbonate. 4. IV antibiotics as per the primary care physician's. The patient is currently on a Levophed drip for her blood pressure support. The patient is currently seen in the ICU and she will be followed up along with the primary care service general surgery and the pulmonary service. 5. The patient will be started on a bicarbonate drip urine studies and renal ultrasound has been or dered. Total time spent in this patient's evaluation and assessment, managing the plan of care, and communi cating with the nursing staff and education of the patient's family and other members of the family took more than 60 minutes. Dictated By: MADISYN MANUEL MD, KP/VU Conf#: [id number] DID#: [id number]
[2016-09-21] MEDS: SODIUM BICARBONATE (IV ADD) 100 MEQ in DEXTROSE 5%-0.45% NACL 1,000 ML IV SCH (11:46)
--- NOTE | 2016-09-21 12:16 | CONS ---
DATE OF ADMISSION: 09/19/2016 DATE OF CONSULTATION: 09/21/2016 TYPE OF CONSULTATION: Pulmonary. REASON FOR CONSULTATION: Septic shock. Thank you, Dr. Quinn, for this consultation. HISTORY OF PRESENT ILLNESS: This is an 86-year-old lady recently admitted for acute appendicitis, u nderwent laparoscopic appendectomy and made a decent recovery following short stay in [facility]. She now presents with nausea, vomiting, abdominal pain, was found to have evidence of small -bowel obstruction. Patient underwent laparoscopic surgery by Dr. Quinn yesterday for ongoing trina l obstruction and was found to have extensive loculated abscesses in the right lower quadrant, under went abdominal washout and small bowel resection x2. Postoperatively, she was extubated and transfe rred to intensive care unit where she has been mildly hypotensive requiring vasopressor support with mild metabolic acidosis and decreased urine output. PAST MEDICAL HISTORY: COPD, hypertension, hyperlipidemia, recent appendectomy. MEDICATIONS: Per chart. ALLERGIES: NONE. SOCIAL HISTORY: Nonsmoker, no alcohol, no history of drug use. FAMILY HISTORY: Noncontributory. SYSTEMS REVIEW: A 12-point review of systems was negative other than that mentioned above. PHYSICAL EXAMINATION: GENERAL: Elderly lady, appears comfortable at rest, no acute distress. Mild abdominal discomfort. VITAL SIGNS: Temperature 98, pulse is 120, blood pressure 100/50, O2 saturation 96%, FIO2 of 2 lite rs. NECK: Supple. No JVD or lymphadenopathy. CARDIAC: S1, S2, no added sounds or murmurs. CHEST: Diminished air entry bilaterally. ABDOMEN: Soft, nontender. No guarding or rebound. EXTREMITIES: No cyanosis, clubbing, edema. NEUROLOGIC: Generalized weakness, but no focal deficits. LABORATORY DATA: White count 24.8, hemoglobin 11.1, platelets of 659. BUN 1.19, potassium 5.5. IMPRESSION AND PLAN: Status post laparoscopic surgery with resection of small bowel and treatment of multiple abscesses. The patient remains in septic shock with evidence of renal insufficiency and metabolic acidosis. The patient will require: 1. Continued aggressive volume resuscitation. 2. PICC line placement. 3. Correction of hyperkalemia. 4. Correction of metabolic acidosis. 5. Consider broadening antibiotics to imipenem and vancomycin if leukocytosis does not continue to improve. I will also check a stat lactic acid; there may be concerned for bowel hypoperfusion. Dictated By: DUDLEY NEVAREZ/VU Conf#: [id number] DID#: [id number]
--- NOTE | 2016-09-21 12:26 | CONS ---
Date/Time of Note Date/Time of Note DATE: 09/21/16 TIME: 12:23 Assessment/Plan Assessment/Plan Additional Assessment/Plan Small bowel obstruction with abdominal abscess status post repeat surgery Shock, possibly sepsis Diastolic congestive heart failure Acute appendicitis status post surgery Preserved ejection fraction Hypertension -Patient hypotensive after the procedure. In discussion with nurse, blood pressure does drop also with morphine. I would decrease dosing of morphine with holding parameters for hypotension. Continue IV pressor to maintain SBP greater than 90 and/or map greater than 60. Agree with aggressive IV fluid resuscitation. Hold any antihypertensives or diuretics at the current time. Broad-spectrum antibiotics. Consultation Date/Type/Reason Admit Date/Time Sep 19, 2016 at 22:10 Type of Consultation: cv 24 HR Interval Summary Free Text/Dictation Patient status post abdominal surgery secondary to small bowel obstruction and abscess. Hypotension overnight on IV pressor. Denies chest pain or shortness of breath Exam/Review of Systems Vital Signs Vitals Vital Signs Date Time Temp Pulse Resp B/P Pulse Ox O2 Delivery O2 Flow Rate FiO2 09/21/16 12:00 117 09/21/16 07:15 18 93/55 94 Nasal Cannula 09/21/16 04:00 97.9 09/21/16 00:42 2.0 09/21/16 00:26 31 Intake and Output 09/20/16 09/20/16 09/21/16 15:00 23:00 07:00 Intake Total 1100 ml 1600 ml 840.625 ml Output Total 740 ml 190 ml Balance 1100 ml 860 ml 650.625 ml Exam Appears tired, follows commands, no apparent distress Constitutional: alert Head: normocephalic Neck: supple Respiratory: other (Coarse breath sounds bilaterally, no wheezing) Cardiovascular: other (S1-S2 heard), regular rate and rhythm (Tachycardic) Gastrointestinal: bowel sounds, other (Tender to palpation, bandages on the abdomen), soft Extremities: other (No edema) Results Result Diagram: 09/21/16 03309/21/16 0330 Results 24 hrs Laboratory Tests Test 09/21/16 03:30 09/21/16 09:23 Activated Partial Thromboplast Time 25.1 Alanine Aminotransferase (ALT/SGPT) 39 Albumin 2.3 L Albumin/Globulin Ratio 0.76 Alkaline Phosphatase 34 L Anion Gap 16 Aspartate Amino Transf (AST/SGOT) 57 H Basophils # 0.0 Basophils % 0.0 Blood Morphology Comment Blood Urea Nitrogen 18 Calcium Level 7.6 L Carbon Dioxide Level 19 L Chloride Level 114 H Creatinine 1.19 H Direct Bilirubin 0.00 Eosinophils # 0.0 Eosinophils % 0.0 Globulin 3.00 Glucose Level 176 Hematocrit 36.3 L Hemoglobin 11.7 L INR International Normalized Ratio 1.16 Indirect Bilirubin 0.3 Lymphocytes # 0.7 L Lymphocytes % 2.9 L Mean Corpuscular Hemoglobin 28.3 L Mean Corpuscular Hemoglobin Concent 32.4 Mean Corpuscular Volume 87.5 Mean Platelet Volume 8.0 Monocytes # 2.4 H Monocytes % 9.6 Neutrophils # 21.7 H Neutrophils % 87.5 H Nucleated Red Blood Cells # 0.0 Nucleated Red Blood Cells % 0.0 Platelet Count 659 #H Potassium Level 5.5 H Prothrombin Time 14.8 H Prothrombin Time Ratio 1.2 Red Blood Count 4.14 L Red Cell Distribution Width 15.9 H Sodium Level 143 Total Bilirubin 0.3 Total Protein 5.3 L White Blood Count 24.8 #H Arterial Blood HCO3 15.6 L Arterial Blood Base Excess -10.3 L Arterial Blood Oxygen Saturation 93.0 L Daniel Test N/A Arterial Blood Gas Puncture Site A-Line Arterial Blood Carboxyhemoglobin 0.3 Arterial Blood Date Drawn 09/21/2016 9:35:44 AM Arterial Blood Methemoglobin 0.2 Arterial Blood pCO2 (Temp correct) 34.7 L Arterial Blood pH (Temp corrected) 7.272 *L Arterial Blood pO2 (Temp corrected) 71.1 L Blood Gas A-a O2 Differential 102.0 H Blood Gas Critical Value Read Back N CHAPLAIN MCALLISTER Blood Gas Modality NASAL CANNULA Blood Gas Notified Time 09/21/2016 9:44:57 AM Blood Gas Notified Whom JLD Blood Gas Specimen Source Blood arterial Blood Gas Temperature 37.0 FiO2 30.0 Oxyhemoglobin Percent 92.5 L Total Hemoglobin 10.7 L Medications Medications Current Medications Salmeterol Xinafoate/ Fluticasone (Advair 250/50 Diskus) 1 inh BID INH Last administered on 09/21/16 08:17; Admin Dose 1 INH; Start 09/20/16 at 09:00 Tiotropium [place] (Spiriva) 1 inh DAILY INH Last administered on 09/21/16 08: 18; Admin Dose 1 INH; Start 09/20/16 at 09:00 Dorzolamide/ Timolol (Cosopt) 1 drop BID LEFT EYE Last administered on 08:18; Admin Dose 1 DROP; Start 09/20/16 at 13:30 Latanoprost (Xalatan) 1 drop DAILY LEFT EYE Last administered on 09/21/16 09: 00; Admin Dose 1 DROP; Start 09/20/16 at 13:30 Ondansetron HCl (Zofran Inj) 4 mg Q6H PRN IV NAUSEA AND/OR VOMITING; Start at 20:30 Pantoprazole (Protonix Iv) 40 mg DAILY@06 IV Last administered on 09/21/16 06: 45; Admin Dose 40 MG; Start 09/21/16 at 06:00 Enoxaparin Sodium 40 mg 40 mg DAILY@07 SC Last administered on 09/21/16 07:00 ; Admin Dose 40 MG; Start 09/21/16 at 07:00 Norepinephrine 250 ml @ 1.875 mls/ hr TITRATE IV Last administered on 21:30; Admin Dose 3.75 MLS/HR; Start 09/20/16 at 21:00 Piperacillin Sod/ Tazobactam Sod 100 ml @ 200 mls/hr Q6 IVPB Last administered on 09/21/16 06:45; Admin Dose 200 MLS/HR; Start 09/21/16 at 00:45 Dextrose/Sodium Chloride 1,000 ml @ 125 mls/hr Q8H IV Last administered on 06:47; Admin Dose 125 MLS/HR; Start 09/21/16 at 07:00; Stop 09/21/16 at 19:00 Dextrose/Sodium Chloride 1,000 ml @ 75 mls/hr [id number] IV ; Start 09/21/16 at 19 :00 Sodium Bicarbonate/ Dextrose/Sodium Chloride (Na Bicarb/D5-1/ 2ns) 1,100 ml @ 100 mls/hr Q11H IV Last administered on 09/21/16 11:46; Admin Dose 100 MLS/HR ; Start 09/21/16 at 11:00 Morphine Sulfate (morphine) 1 mg Q2H PRN IV PAIN; Start 09/21/16 at 12:30 Taco Castillo 16, 2017 12:26
--- NOTE | 2016-09-21 12:53 | CONS ---
DATE OF ADMISSION: 09/19/2016 DATE OF CONSULTATION: 09/21/2016 TYPE OF CONSULTATION: Infectious Disease. REASON FOR CONSULTATION: Antibiotic management. HISTORY OF PRESENT ILLNESS: Kristin Aguila is an 86-year-old female who has a number of problems an d was initially admitted for acute appendicitis. Her past problems include: 1. Hypertension. 2. COPD. 3. Hypothyroidism. 4. Dyslipidemia. The patient is status post laparoscopic appendectomy and was sent to the acute re habilitation. She is now being admitted for small-bowel obstruction. She has an NG tube in place w ith suctioning. She has a history of COPD as noted and received bronchodilator and steroids. On ad mission, her white count was 12.9, H and H of 10.6 and 32, platelet count 540,000. BUN and creatini ne 18/0.75. She was started on Zosyn. She was seen in consultation by Dr. Jeffry Membreno. Her BUN and creatinine were 18/0.75. She was also seen by Dr. Castillo for cardiology. She underwent a diagn ostic laparoscopy, exploratory laparotomy, abdominal washout and small bowel resection x2 by Dr. Walter Quinn. A 19-Hebrew Daniel drain was placed in the pelvis and right lower quadrant. The specim en that was removed was the ileum and distal ileum. Findings were extensive loculated interloop abs cesses in the right lower quadrant, definite transition point in the right lower quadrant, free flui d in the right upper quadrant and purulent fluid in the pelvis. Patient is status post laparoscopic appendectomy for perforated appendix approximately 2 weeks ago. She developed pelvic abscess which was draining adequately and then developed a small-bowel obstruction with an elevated CT white coun t and a CT scan showing interloop abscesses, pelvic adhesions and pelvic fluid. She therefore went to surgery and this is all taken care of. Currently, she is status post surgery. Sepsis was second cecilia to intraabdominal abscess. She is now on vancomycin and Zosyn. White count today is up to 24.8 status post surgery, her platelet count is 659. BUN and creatinine are 18/1.19. Microbiology: Abhi dy fluid cultures are pending. Abdominal x-ray, there is a left pelvic percutaneous drain with the tip in the right lateral mid abdomen. There is appearance of the initial drain and possibly retaine d sponge in the right lateral pelvis. Discussed with the operating room nurseRadha at 8:20.__ __ PAST MEDICAL HISTORY: Operations as outlined. FAMILY HISTORY: Noncontributory. SOCIAL HISTORY: She does not smoke, drink or abuse drugs. She did smoke in the past. ALLERGIES: NONE TO PENICILLIN, SULFA OR FOODS. MEDICATIONS: Per chart. REVIEW OF SYSTEMS: As per HPI. PHYSICAL EXAMINATION: GENERAL: The patient is an elderly appearing female who looks chronically ill, in no acute distress . VITAL SIGNS: Stable. She is currently afebrile, T-max of 97.9. SKIN: Without generalized rash. HEENT: Within normal limits. NECK: Supple. LYMPH NODES: None palpable. CHEST: She has an NG tube in place. NECK: Supple. LYMPH NODES: None palpable. LUNGS: Decreased breath sounds at the bases. HEART: Without murmur or gallop. ABDOMEN: Soft, lower abdominal tenderness. The drain is in place. Surgical site is dry and clean. EXTREMITIES: Without cyanosis, clubbing, or edema. RECTAL AND GENITAL: Deferred. NEUROLOGIC: No focal neurological abnormalities. IMPRESSION AND PLAN: The patient is status post small-bowel obstruction and pelvic abscess which pop s been adequately drained by Dr. Quinn, there is extensive loculated and fluid abscesses. She is c urrently on vancomycin and Zosyn. We will tailor her antibiotic therapy once we get results of her cultures from the abdomen. She had a PICC line placed today. I will dictate my findings to the berna colón, Dr. Daugherty, Dr. Quinn, Dr. Membreno and Dr. Castillo. Dictated By: THOMAS CALIXTO MD, JD/VU Conf#: [id number] DID#: [id number]
[2016-09-21 14:21] LABS: AADO2 Arterial 105.8 mmHg (7.0-24.0); Arterial Base Excess -10.5 mmol/L (-3.0-3); Arterial COHb 0.2 % (0.0-3.0); Arterial HCO3 14.9 mmol/L (22.0-26.0); Arterial MetHb 0.2 % (0.0-1.5); MODE NASAL CANNULA
--- NOTE | 2016-09-21 14:58 | RADRPT ---
PROCEDURE: US guidance for PICC line CLINICAL INDICATION: PICC line placement TECHNIQUE: Multiple real-time images were acquired of the patient's arm utilizing a high resolutio n transducer. This was performed by the PICC line nurse for venous access. COMPARISON: None FINDINGS: Ultrasound guidance for PICC line placement. IMPRESSION: Ultrasound guidance for PICC line placement. RPTAT: AA .Oscar Heredia MD, MD Date Time Electronically viewed and signed by .Oscar Heredia MD, on 09/21/2016 14:58 .S/
[2016-09-21 15:01] LABS: POTASSIUM 5.1 mmol/L (3.5-5.1)
[2016-09-21 15:03] LABS: CREATININE 1.87 mg/dl (0.44-1.00)
[2016-09-21 15:04] LABS: CALCIUM 7.1 mg/dl (8.4-10.2)
--- NOTE | 2016-09-21 15:46 | RADRPT ---
PROCEDURE: XR Chest. CLINICAL INDICATION: Check PICC line catheter. TECHNIQUE: Single AP portable chest COMPARISON: Shortness of breath FINDINGS: The cardiomediastinal silhouette is within normal limits of size . Atherosclerotic calcification of the aortic arch. Visualized NG tube overlying the stomach . PICC line catheter tip at the cavoatria l junction decreased bilateral pleural effusions compared to previous study. . No pneumothorax. The osseous structures and soft tissues are unremarkable. IMPRESSION: 1. Decreased pleural effusions. Support devices in satisfactory position as discussed above.. RPTAT:AAJJ Physician Soraya Date Time Electronically viewed and signed by Physician Soraya on 09/21/2016 15:46 STEPHANIE/
[2016-09-21] MEDS ORDERED: SOD CHLORIDE 0.9% 500 ML IV ONE (16:00)
--- NOTE | 2016-09-21 16:18 | RADRPT ---
PROCEDURE: Retroperitoneal US. CLINICAL INDICATION: Renal insufficiency TECHNIQUE: Multiple sonographic images of the kidneys and retroperitoneum were obtained. The imag es were reviewed on a PACS workstation. COMPARISON: No prior studies are available for comparison. FINDINGS: The kidneys are normal in contour, cortical thickness and cortical echogenicity. The right kidney measures 9.5 cm. The left kidney measures 8.4 cm. No kidney stones are visualized. There is no evidence for hydronephrosis. There is a 1.7 cm simple cyst in the right kidney. The urinary bladder is not visualized. RPTAT: AA IMPRESSION: No evidence of hydronephrosis. Slightly small left kidney. Simple cyst in the right kidney. .Oscar Heredia MD, Date Time Electronically viewed and signed by .Oscar Heredia MD, MD on 09/21/2016 16:18 .S/
[2016-09-21] MEDS ORDERED: SOD CHLORIDE 0.9% 100 ML ONE (16:39)
[2016-09-21] MEDS: NORepinephrine 8MG/250 ML (PMX 250 ML IV SCH (16:57)
--- NOTE | 2016-09-21 17:15 | PN ---
DATE: 09/21/2016 SUBJECTIVE: Ms. Aguila is now postoperative day 15 and postoperative day 1 from a laparoscopic ap pendectomy and exploratory laparotomy, small bowel resection too. The patient is complaining of freeman e pain. She is resting comfortably, however, in bed. Currently, heart rate 120, BP is 110/60. She is afebrile. Her urine output today has been marginal . It is approximately 20 mL per hour. Her STEPHANIE is draining serosanguineous fluid. Her abdomen is sof t, mildly distended. LABORATORY DATA: Today reveal white count of 25, hematocrit 36 and platelets of 659. Sodium 144, p otassium 5.1, chloride 118, CO2 of 17, BUN and creatinine of 21 and 1.87 and glucose 157. BNP is 46 00. Coags today are 14.8 with an INR 1.2 and a PTT of 25.1. Blood gas recently showing a pH of 7.3 , pCO2 of 31, pO2 of 72, satting at 93% on 3 liters. ASSESSMENT AND PLAN: 1. Ms. Aguila is status post a small bowel resection. She is likely still hypovolemic. She has received multiple fluid boluses with marginal urine output. Her blood pressure has improved but I t hink at this point, she has a component of acute tubular necrosis. Would continue just on her maint enance fluids as her kidneys will likely take a few days for the acute tubular necrosis to resolve. 2. Elevated white count. This is most likely from the stress of surgery. She is covered with Zosy n and we are waiting for the cultures from the OR. 3. Hypotension. Continue to wean Levophed in the next 24 hours. Patient similarly was hypotensive after her prior appendectomy which resolved over the next 24 to 48 hours as well. 4. Gastrointestinal. I will await bowel function for now. The patient is going to have eyes check ed. NG tube is draining minimally. Dictated By: TRISTAN MYLES/VU Conf#: [id number] DID#: [id number]
[2016-09-21] MEDS ORDERED: FUROSEMIDE 20 MG INJ IV ONE (17:30)
[2016-09-21] MEDS ORDERED: ALBUMIN HUMAN 25% 100 ML IV ONE (17:30)
[2016-09-21 20:20] LABS: AADO2 Arterial 93.8 mmHg (7.0-24.0); Arterial Base Excess -9.2 mmol/L (-3.0-3); Arterial COHb 0.3 % (0.0-3.0); Arterial Fraction of Oxyhgb 93.2 % (93.0-99.0); Arterial HCO3 15.8 mmol/L (22.0-26.0); Arterial MetHb 0.2 % (0.0-1.5); Arterial Total Hemglobin 8.8 g/dl (12.0-18.0); MODE NASAL CANNULA
[2016-09-22] VITALS (57 sets, daily range): BP systolic 60–162; BP diastolic 32–87; PULSE 93–108; RESP 13–29
[2016-09-22] MEDS: PIPER-TAZO 3.375 GM IV (PMX) 100 ML IVPB SCH ×2 (00:26→06:56)
[2016-09-22] MEDS: ACETAMINOPHEN 650MG/20.3ML CUP NGT PRN ×2 (00:27→09:09)
[2016-09-22] MEDS: SODIUM BICARBONATE (IV ADD) 100 MEQ in DEXTROSE 5%-0.45% NACL 1,000 ML IV SCH ×3 (00:27→15:30)
[2016-09-22] MEDS: morphine 4 MG/ML VIAL IV PRN ×2 (01:51→06:56)
[2016-09-22 04:56] LABS: INR 1.75; PT RATIO 1.6
[2016-09-22 04:57] LABS: PARTIAL THROMBOPLASTIN TIME 39.3 Sec (25.0-35.0)
[2016-09-22] MEDS: PANTOPRAZOLE 40 MG INJ IV SCH (06:56)
--- NOTE | 2016-09-22 07:33 | RADRPT ---
PROCEDURE: XR Chest. CLINICAL INDICATION: Pneumonia. Congestive heart failure. TECHNIQUE: Portable single view of the chest COMPARISON: 09/21 FINDINGS: Since the prior study, there has been no significant interval change in the appearance of the heart or lungs or position of tubes and lines allowing for slight differences in technique and positioning . Mild pulmonary vascular congestion with probable slight interstitial edema and bibasilar crowding. IMPRESSION: No significant interval change. Tubes and lines remain in good position. RPTAT: HLBE Physician Latia Date Time Electronically viewed and signed by Nicole Goff Physician on 09/22/2016 07:33 CORINNE/
[2016-09-22 07:44] LABS: AADO2 Arterial 57.2 mmHg (7.0-24.0); Arterial Base Excess -3.9 mmol/L (-3.0-3); Arterial COHb 0.4 % (0.0-3.0); Arterial Fraction of Oxyhgb 93.1 % (93.0-99.0); Arterial HCO3 20.7 mmol/L (22.0-26.0); Arterial MetHb 0.5 % (0.0-1.5); Arterial Total Hemglobin 7.4 g/dl (12.0-18.0); MODE NASAL CANNULA
--- NOTE | 2016-09-22 08:10 | CONS ---
Date/Time of Note Date/Time of Note DATE: 09/22/16 TIME: 08:05 Assessment/Plan Assessment/Plan Additional Assessment/Plan 1. Sepsis. 2. Acute kidney injury secondary to acute tubular necrosis from sepsis. 3. Acute hyperkalemia with metabolic acidosis likely secondary to acute kidney injury. 4. Small bowel obstructions status post exploratory laparotomy and abdominal washout 5. History of recent laparoscopic appendectomy. 6. History of hypertension 7. History of chronic obstructive pulmonary disease. 8. History of hypothyroidism. PLAN: continue bicarbonate drip I will add flagyl 500 mg IV Q 8 hr Chemisty ordered for today stat good urine output after pt received Albumin and lasix if pt goign to be NPO for a long time then she will need TPN for nutrition will follow up Consultation Date/Type/Reason Admit Date/Time Sep 19, 2016 at 22:10 Initial Consult Date Sep Type of Consultation: NEPHROLOGY Reason for Consultation Acute Kidney injury, Hyperkalemia Referring Provider: YAMILE LARA MD 24 HR Interval Summary Free Text/Dictation pt remained stable overnight, made good urine output overnight, afebrile, No chemistry today Exam/Review of Systems Vital Signs Vitals Vital Signs Date Time Temp Pulse Resp B/P Pulse Ox O2 Delivery O2 Flow Rate FiO2 09/22/16 05:45 100 18 132/45 96 Nasal Cannula 2.0 09/22/16 05:33 31 09/22/16 04:00 98.0 Intake and Output 09/21/16 09/21/16 09/22/16 15:00 23:00 07:00 Intake Total 735.938 ml 700.938 ml Output Total 75 ml 572 ml 625 ml Balance -75 ml 163.938 ml 75.938 ml Exam GENERAL: Awake, alert, in moderate distress. HEENT: Normal. Oropharynx clear. NG tube in place. NECK: Supple, no JVD, no lymphadenopathy. LUNGS: Decreased breath sounds at both lung bases with minimal expiratory wheezing present. HEART: S1, S2, tachycardia, no murmur. ABDOMEN: Soft. EXTREMITIES: The patient has an exploratory laparotomy dressing on and drain in place. NEUROLOGICAL: Nonfocal, intact. PSYCHIATRIC: Appropriate affect and mood. Results Result Diagram: 09/21/16 0330 09/21/16 1345 Results 24 hrs Laboratory Tests Test 09/21/16 09:23 09/21/16 11:50 09/21/16 13:45 09/21/16 14:00 Arterial Blood HCO3 15.6 L 14.9 L Arterial Blood Base Excess -10.3 L -10.5 L Arterial Blood Oxygen Saturation 93.0 L 93.4 L Daniel Test N/A N/A Arterial Blood Gas Puncture Site A-Line A-Line Arterial Blood Carboxyhemoglobin 0.3 0.2 Arterial Blood Date Drawn 09/21/2016 9:35:44 AM 09/21/2016 2:05:00 PM Arterial Blood Methemoglobin 0.2 0.2 Arterial Blood pCO2 (Temp correct) 34.7 L 31.1 L Arterial Blood pH (Temp corrected) 7.272 *L 7.298 *L Arterial Blood pO2 (Temp corrected) 71.1 L 71.6 L Blood Gas A-a O2 Differential 102.0 H 105.8 H Blood Gas Critical Value Read Back N CHAPLAIN ESVIN PRADO RN Blood Gas Modality NASAL CANNULA NASAL CANNULA Blood Gas Notified Time 09/21/2016 9:44:57 AM 09/21/2016 2:21:00 PM Blood Gas Notified Whom GERTRUDIS CABA Blood Gas Specimen Source Blood arterial Blood arterial Blood Gas Temperature 37.0 37.0 FiO2 30.0 30.0 Oxyhemoglobin Percent 92.5 L 93.0 Total Hemoglobin 10.7 L 10.0 L Urine Eosinophils % 0.0 Urine Random Creatinine 171.41 Urine Random Sodium 33 Urine Total Protein Anion Gap 14 B-Type Natriuretic Peptide 4610 H Blood Urea Nitrogen 21 H Calcium Level 7.1 L Carbon Dioxide Level 17 L Chloride Level 118 H Creatinine 1.87 H Glucose Level 157 Lactic Acid Level 1.9 Potassium Level 5.1 Sodium Level 144 Test 09/21/16 20:00 09/22/16 04:00 09/22/16 07:00 Arterial Blood HCO3 15.8 L 20.7 L Arterial Blood Base Excess -9.2 L -3.9 L Arterial Blood Oxygen Saturation 93.7 L 93.9 L Daniel Test N/A N/A Arterial Blood Gas Puncture Site A-Line A-Line Arterial Blood Carboxyhemoglobin 0.3 0.4 Arterial Blood Date Drawn 09/21/2016 8:10:18 PM 09/22/2016 7:33:30 AM Arterial Blood Methemoglobin 0.2 0.5 Arterial Blood pCO2 (Temp correct) 31.1 L 35.2 Arterial Blood pH (Temp corrected) 7.325 L 7.387 Arterial Blood pO2 (Temp corrected) 69.1 L 72.0 L Blood Gas A-a O2 Differential 93.8 H 57.2 H Blood Gas Modality NASAL CANNULA NASAL CANNULA Blood Gas Notified Time 09/21/2016 8:20:09 PM 09/22/2016 7:44:06 AM Blood Gas Notified Whom ALYSHA CABA Blood Gas Specimen Source Blood arterial Blood arterial Blood Gas Temperature 37.0 37.0 FiO2 28.0 24.0 Oxyhemoglobin Percent 93.2 93.1 Total Hemoglobin 8.8 L 7.4 L Activated Partial Thromboplast Time 39.3 H B-Type Natriuretic Peptide 6460 H INR International Normalized Ratio 1.75 Lactic Acid Level 3.4 H Magnesium Level 1.2 L Platelet Count Pending Prothrombin Time Pending Prothrombin Time Ratio 1.6 Thrombin Time Pending Medications Medications Current Medications Salmeterol Xinafoate/ Fluticasone (Advair 250/50 Diskus) 1 inh BID INH Last administered on 09/21/16 21:36; Admin Dose 1 INH; Start 09/20/16 at 09:00 Tiotropium [place] (Spiriva) 1 inh DAILY INH Last administered on 09/21/16 08: 18; Admin Dose 1 INH; Start 09/20/16 at 09:00 Dorzolamide/ Timolol (Cosopt) 1 drop BID LEFT EYE Last administered on 21:36; Admin Dose 1 DROP; Start 09/20/16 at 13:30 Latanoprost (Xalatan) 1 drop DAILY LEFT EYE Last administered on 09/21/16 09: 00; Admin Dose 1 DROP; Start 09/20/16 at 13:30 Ondansetron HCl (Zofran Inj) 4 mg Q6H PRN IV NAUSEA AND/OR VOMITING; Start at 20:30 Pantoprazole (Protonix Iv) 40 mg DAILY@06 IV Last administered on 09/22/16 06: 56; Admin Dose 40 MG; Start 09/21/16 at 06:00 Enoxaparin Sodium 40 mg 40 mg DAILY@07 SC Last administered on 09/21/16 07:00 ; Admin Dose 40 MG; Start 09/21/16 at 07:00 Norepinephrine 250 ml @ 1.875 mls/ hr TITRATE IV Last administered on 16:57; Admin Dose 3.75 MLS/HR; Start 09/20/16 at 21:00 Piperacillin Sod/ Tazobactam Sod 100 ml @ 200 mls/hr Q6 IVPB Last administered on 09/22/16 06:56; Admin Dose 200 MLS/HR; Start 09/21/16 at 00:45 Sodium Bicarbonate/ Dextrose/Sodium Chloride (Na Bicarb/D5-1/ 2ns) 1,100 ml @ 100 mls/hr Q11H IV Last administered on 09/22/16 00:27; Admin Dose 100 MLS/HR ; Start 09/21/16 at 11:00 Morphine Sulfate (morphine) 1 mg Q2H PRN IV PAIN Last administered on 06:56; Admin Dose 1 MG; Start 09/21/16 at 12:30 IV Flush (NS 10 ml) 10 ml PRN PRN IV IV PROTOCOL; Start 09/21/16 at 17:30 Acetaminophen (Tylenol Liquid) 650 mg Q6H PRN NGT PAIN AND OR ELEVATED TEMP Last administered on 09/22/16 00:27; Admin Dose 650 MG; Start 09/22/16 at 00:20 MADISYN MANUEL MD Sep 22, 2016 08:10
--- NOTE | 2016-09-22 08:11 | CONS ---
Date/Time of Note Date/Time of Note DATE: 09/22/16 TIME: 08:08 Assessment/Plan Assessment/Plan Additional Assessment/Plan Assessment recommendations; next 1. Patient admitted with small bowel obstruction status post laparotomy. Next 2. Persistent ileus. 3. Chest x-ray was reviewed from today which is showing very minimal vascular congestion. 4. Worsening renal function. Left from this morning are pending. 6. Significant increase in leukocytosis yesterday. CBC from this morning is pending. 7. Hypotension with interval resolution. Patient off pressor support. Start TPN. I would recommend adding Flagyl to current antibiotic regimen. Continue current supportive care. Patient be transferred to the surgical unit. Consultation Date/Type/Reason Admit Date/Time Sep 19, 2016 at 22:10 Initial Consult Date Type of Consultation: Pulmonary/critical care 24 HR Interval Summary Free Text/Dictation Patient condition is stable. However still complains of abdominal pain. Unable to eat. Denies any shortness of breath, chest pain. Any coughing. Denies any nausea vomiting. General examination; elderly lady, awake alert currently in no distress. Exam/Review of Systems Vital Signs Vitals Vital Signs Date Time Temp Pulse Resp B/P Pulse Ox O2 Delivery O2 Flow Rate FiO2 09/22/16 05:45 100 18 132/45 96 Nasal Cannula 2.0 09/22/16 05:33 31 09/22/16 04:00 98.0 Intake and Output 09/21/16 09/21/16 09/22/16 15:00 23:00 07:00 Intake Total 735.938 ml 700.938 ml Output Total 75 ml 572 ml 625 ml Balance -75 ml 163.938 ml 75.938 ml Exam HEENT examination; supple neck, no JVD. No lymphadenopathy. Patient bilateral intraocular lens implants with small pupils bilaterally. Pharynx is clear. Dentition is fair. No thyromegaly, no neck bruits. Chest examination clear to auscultation bilaterally. S1-S2 audible, no murmurs. Regular rhythm. Abdomen examination; mildly distended. Midline dressing in place. Bowel sounds are absent. There is mild generalized tenderness present. Bowel sounds are absent. Extremity examination; no peripheral edema. BUSINESS PROCESS CONSULTANT examination; no focal deficit. Results Result Diagram: 09/21/16 0330 09/21/16 1345 Results 24 hrs Laboratory Tests Test 09/21/16 09:23 09/21/16 11:50 09/21/16 13:45 09/21/16 14:00 Arterial Blood HCO3 15.6 L 14.9 L Arterial Blood Base Excess -10.3 L -10.5 L Arterial Blood Oxygen Saturation 93.0 L 93.4 L Daniel Test N/A N/A Arterial Blood Gas Puncture Site A-Line A-Line Arterial Blood Carboxyhemoglobin 0.3 0.2 Arterial Blood Date Drawn 09/21/2016 9:35:44 AM 09/21/2016 2:05:00 PM Arterial Blood Methemoglobin 0.2 0.2 Arterial Blood pCO2 (Temp correct) 34.7 L 31.1 L Arterial Blood pH (Temp corrected) 7.272 *L 7.298 *L Arterial Blood pO2 (Temp corrected) 71.1 L 71.6 L Blood Gas A-a O2 Differential 102.0 H 105.8 H Blood Gas Critical Value Read Back N CHAPLAIN ESVIN PRADO RN Blood Gas Modality NASAL CANNULA NASAL CANNULA Blood Gas Notified Time 09/21/2016 9:44:57 AM 09/21/2016 2:21:00 PM Blood Gas Notified Whom SHANIAD GERTRUDIS Blood Gas Specimen Source Blood arterial Blood arterial Blood Gas Temperature 37.0 37.0 FiO2 30.0 30.0 Oxyhemoglobin Percent 92.5 L 93.0 Total Hemoglobin 10.7 L 10.0 L Urine Eosinophils % 0.0 Urine Random Creatinine 171.41 Urine Random Sodium 33 Urine Total Protein Anion Gap 14 B-Type Natriuretic Peptide 4610 H Blood Urea Nitrogen 21 H Calcium Level 7.1 L Carbon Dioxide Level 17 L Chloride Level 118 H Creatinine 1.87 H Glucose Level 157 Lactic Acid Level 1.9 Potassium Level 5.1 Sodium Level 144 Test 09/21/16 20:00 09/22/16 04:00 09/22/16 07:00 Arterial Blood HCO3 15.8 L 20.7 L Arterial Blood Base Excess -9.2 L -3.9 L Arterial Blood Oxygen Saturation 93.7 L 93.9 L Dainel Test N/A N/A Arterial Blood Gas Puncture Site A-Line A-Line Arterial Blood Carboxyhemoglobin 0.3 0.4 Arterial Blood Date Drawn 09/21/2016 8:10:18 PM 09/22/2016 7:33:30 AM Arterial Blood Methemoglobin 0.2 0.5 Arterial Blood pCO2 (Temp correct) 31.1 L 35.2 Arterial Blood pH (Temp corrected) 7.325 L 7.387 Arterial Blood pO2 (Temp corrected) 69.1 L 72.0 L Blood Gas A-a O2 Differential 93.8 H 57.2 H Blood Gas Modality NASAL CANNULA NASAL CANNULA Blood Gas Notified Time 09/21/2016 8:20:09 PM 09/22/2016 7:44:06 AM Blood Gas Notified Whom ALYSHA CABA Blood Gas Specimen Source Blood arterial Blood arterial Blood Gas Temperature 37.0 37.0 FiO2 28.0 24.0 Oxyhemoglobin Percent 93.2 93.1 Total Hemoglobin 8.8 L 7.4 L Activated Partial Thromboplast Time 39.3 H B-Type Natriuretic Peptide 6460 H INR International Normalized Ratio 1.75 Lactic Acid Level 3.4 H Magnesium Level 1.2 L Platelet Count Pending Prothrombin Time Pending Prothrombin Time Ratio 1.6 Thrombin Time Pending Medications Medications Current Medications Salmeterol Xinafoate/ Fluticasone (Advair 250/50 Diskus) 1 inh BID INH Last administered on 09/21/16 21:36; Admin Dose 1 INH; Start 09/20/16 at 09:00 Tiotropium [place] (Spiriva) 1 inh DAILY INH Last administered on 09/21/16 08: 18; Admin Dose 1 INH; Start 09/20/16 at 09:00 Dorzolamide/ Timolol (Cosopt) 1 drop BID LEFT EYE Last administered on 21:36; Admin Dose 1 DROP; Start 09/20/16 at 13:30 Latanoprost (Xalatan) 1 drop DAILY LEFT EYE Last administered on 09/21/16 09: 00; Admin Dose 1 DROP; Start 09/20/16 at 13:30 Ondansetron HCl (Zofran Inj) 4 mg Q6H PRN IV NAUSEA AND/OR VOMITING; Start at 20:30 Pantoprazole (Protonix Iv) 40 mg DAILY@06 IV Last administered on 09/22/16 06: 56; Admin Dose 40 MG; Start 09/21/16 at 06:00 Enoxaparin Sodium 40 mg 40 mg DAILY@07 SC Last administered on 09/21/16 07:00 ; Admin Dose 40 MG; Start 09/21/16 at 07:00 Norepinephrine 250 ml @ 1.875 mls/ hr TITRATE IV Last administered on 16:57; Admin Dose 3.75 MLS/HR; Start 09/20/16 at 21:00 Piperacillin Sod/ Tazobactam Sod 100 ml @ 200 mls/hr Q6 IVPB Last administered on 09/22/16 06:56; Admin Dose 200 MLS/HR; Start 09/21/16 at 00:45 Sodium Bicarbonate/ Dextrose/Sodium Chloride (Na Bicarb/D5-1/ 2ns) 1,100 ml @ 100 mls/hr Q11H IV Last administered on 09/22/16 00:27; Admin Dose 100 MLS/HR ; Start 09/21/16 at 11:00 Morphine Sulfate (morphine) 1 mg Q2H PRN IV PAIN Last administered on 06:56; Admin Dose 1 MG; Start 09/21/16 at 12:30 IV Flush (NS 10 ml) 10 ml PRN PRN IV IV PROTOCOL; Start 09/21/16 at 17:30 Acetaminophen (Tylenol Liquid) 650 mg Q6H PRN NGT PAIN AND OR ELEVATED TEMP Last administered on 09/22/16 00:27; Admin Dose 650 MG; Start 09/22/16 at 00:20 NATALY PAGE Sep 22, 2016 08:11
[2016-09-22] MEDS ORDERED: MAGNESIUM SULFATE 2 GM/50 ML 50 ML IVPB ONE (08:30)
[2016-09-22] MEDS: metroNIDAZOLE 500 MG/NS (PMX) 100 ML IVPB SCH ×3 (09:10→21:47)
[2016-09-22] MEDS: SALMETEROL/FLUTICASONE 250/50 INHA INH SCH ×2 (09:11→21:47)
[2016-09-22] MEDS: DORZOLAMIDE/TIMOLOL 10 ML OPH LEFT EYE SCH ×2 (09:12→21:47)
[2016-09-22] MEDS: LATANOPROST 0.005% 2.5 ML OPH LEFT EYE SCH (09:15)
[2016-09-22] MEDS: ENOXAPARIN 40 MG/0.4 ML SYG SC SCH (09:18)
[2016-09-22] MEDS: TIOTROPIUM 18 MCG CAPSULE INHA DEV INH SCH (09:40)
[2016-09-22 09:45] LABS: ALBUMIN/GLOBULIN RATIO 0.86
[2016-09-22 09:50] LABS: CALCIUM 6.8 mg/dl (8.4-10.2); CREATININE 2.21 mg/dl (0.44-1.00); PHOSPHORUS 3.3 mg/dl (2.5-4.9); TOTAL PROTEIN 4.3 g/dl (6.1-8.1)
--- NOTE | 2016-09-22 10:06 | PN ---
Date/Time of Note Date/Time of Note DATE: 09/22/16 TIME: 10:02 Assessment/Plan VTE Prophylaxis VTE Prophylaxis Intervention: SCD's Lines/Catheters IV Catheter Type (from Nrs): PICC Line Central line still needed: Yes Urinary Cath still in place: Yes Reason Cath still needed: other (indicate) Assessment/Plan Chief Complaint/Hosp Course Assessment/Plan 1. Small bowel obstruction s/p Recent Laproscopic Appendectomy Status post small bowel resection x2. Continue postsurgical care, IV fluid, NG tube, pain management and IV antibiotics 2. Sepsis Likely secondary to intra-abdominal abscess and postoperatively infectious disease doctor has been consulted, continue Zosyn and Flagyl Follow-up blood culture, continue aggressive IV fluids 3. Hyperkalemia Continue IV fluid, nephrology has been consulted, follow-up electrolytes in a.m. 4 . Abdominal abscess. Status post drainage by interventional radiologist and Diagnostic laparoscopy, Exploratory laparotomy and abdominal washout. Continue aggressive IV antibiotics 3. COPD 4. History of hypertension At this time patient is hypotensive, we will hold all blood pressure medications 5. Hyperlipidemia 6. Hypothyroidism We will continue monitor patient closely for recommendation management treatment as clinical course Problems: Subjective 24 Hr Interval Summary Free Text/Dictation Patient complains of having generalized body ache and abdominal pain No bowel movement or flatus Denies of any chest pain or shortness of breath Exam/Review of Systems Vital Signs Vitals Vital Signs Date Time Temp Pulse Resp B/P Pulse Ox O2 Delivery O2 Flow Rate FiO2 09/22/16 08:00 102 09/22/16 05:45 18 132/45 96 Nasal Cannula 2.0 09/22/16 05:33 31 09/22/16 04:00 98.0 Intake and Output 09/21/16 09/21/16 09/22/16 15:00 23:00 07:00 Intake Total 735.938 ml 700.938 ml Output Total 75 ml 572 ml 625 ml Balance -75 ml 163.938 ml 75.938 ml Exam General: The patient is well-developed, Not in acute distress. NG tube in place HEENT: Atraumatic, normocephalic. The pupils are equal and round . Neck: Supple with full range of motion. Chest: Normal expansion of the thorax during inspiration Lungs: Clear to auscultation bilaterally Heart: Normal S1-S2, Regular rhythm and rate. Abdomen: Soft , minimally tender surgical site, nondistended , bowel sounds are hypoactive and present. Surgical site is dry and clean Extremities: Normal to inspection, no edema no cyanosis Neurologic: Normal mental status,The patient is awake, alert and oriented . Results Result Diagram: 09/21/16 0330 09/22/16 0400 Results 24 hrs Laboratory Tests Test 09/21/16 11:50 09/21/16 13:45 09/21/16 14:00 09/21/16 20:00 Urine Eosinophils % 0.0 Urine Random Creatinine 171.41 Urine Random Sodium 33 Urine Total Protein Anion Gap 14 B-Type Natriuretic Peptide 4610 H Blood Urea Nitrogen 21 H Calcium Level 7.1 L Carbon Dioxide Level 17 L Chloride Level 118 H Creatinine 1.87 H Glucose Level 157 Lactic Acid Level 1.9 Potassium Level 5.1 Sodium Level 144 Arterial Blood HCO3 14.9 L 15.8 L Arterial Blood Base Excess -10.5 L -9.2 L Arterial Blood Oxygen Saturation 93.4 L 93.7 L Daniel Test N/A N/A Arterial Blood Gas Puncture Site A-Line A-Line Arterial Blood Carboxyhemoglobin 0.2 0.3 Arterial Blood Date Drawn 09/21/2016 2:05:00 PM 09/21/2016 8:10:18 PM Arterial Blood Methemoglobin 0.2 0.2 Arterial Blood pCO2 (Temp correct) 31.1 L 31.1 L Arterial Blood pH (Temp corrected) 7.298 *L 7.325 L Arterial Blood pO2 (Temp corrected) 71.6 L 69.1 L Blood Gas A-a O2 Differential 105.8 H 93.8 H Blood Gas Critical Value Read Back Thania PRADO RN Blood Gas Modality NASAL CANNULA NASAL CANNULA Blood Gas Notified Time 09/21/2016 2:21:00 PM 09/21/2016 8:20:09 PM Blood Gas Notified Whom GERTRUDIS ENCARNACION Blood Gas Specimen Source Blood arterial Blood arterial Blood Gas Temperature 37.0 37.0 FiO2 30.0 28.0 Oxyhemoglobin Percent 93.0 93.2 Total Hemoglobin 10.0 L 8.8 L Test 09/22/16 04:00 09/22/16 07:00 Activated Partial Thromboplast Time 39.3 H Alanine Aminotransferase (ALT/SGPT) 65 Albumin 2.0 L Albumin/Globulin Ratio 0.86 Alkaline Phosphatase 29 L Anion Gap 15 Aspartate Amino Transf (AST/SGOT) 99 H B-Type Natriuretic Peptide 6460 H Blood Urea Nitrogen 24 H Calcium Level 6.8 L Carbon Dioxide Level 19 L Chloride Level 117 H Creatinine 2.21 H Direct Bilirubin 0.00 Globulin 2.30 Glucose Level 189 INR International Normalized Ratio 1.75 Indirect Bilirubin 0.0 Lactic Acid Level 3.4 H Magnesium Level 1.2 L Phosphorus Level 3.3 Platelet Count Pending Potassium Level 4.0 Prothrombin Time Pending Prothrombin Time Ratio 1.6 Sodium Level 147 H Thrombin Time Pending Total Bilirubin 0.0 L Total Protein 4.3 #L Arterial Blood HCO3 20.7 L Arterial Blood Base Excess -3.9 L Arterial Blood Oxygen Saturation 93.9 L Daniel Test N/A Arterial Blood Gas Puncture Site A-Line Arterial Blood Carboxyhemoglobin 0.4 Arterial Blood Date Drawn 09/22/2016 7:33:30 AM Arterial Blood Methemoglobin 0.5 Arterial Blood pCO2 (Temp correct) 35.2 Arterial Blood pH (Temp corrected) 7.387 Arterial Blood pO2 (Temp corrected) 72.0 L Blood Gas A-a O2 Differential 57.2 H Blood Gas Modality NASAL CANNULA Blood Gas Notified Time 09/22/2016 7:44:06 AM Blood Gas Notified Whom JLD Blood Gas Specimen Source Blood arterial Blood Gas Temperature 37.0 FiO2 24.0 Oxyhemoglobin Percent 93.1 Total Hemoglobin 7.4 L Medications Medications Current Medications Salmeterol Xinafoate/ Fluticasone (Advair 250/50 Diskus) 1 inh BID INH Last administered on 09/22/16 09:11; Admin Dose 1 INH; Start 09/20/16 at 09:00 Tiotropium [place] (Spiriva) 1 inh DAILY INH Last administered on 09/22/16 09: 40; Admin Dose 1 INH; Start 09/20/16 at 09:00 Dorzolamide/ Timolol (Cosopt) 1 drop BID LEFT EYE Last administered on 09:12; Admin Dose 1 DROP; Start 09/20/16 at 13:30 Latanoprost (Xalatan) 1 drop DAILY LEFT EYE Last administered on 09/22/16 09: 15; Admin Dose 1 DROP; Start 09/20/16 at 13:30 Ondansetron HCl (Zofran Inj) 4 mg Q6H PRN IV NAUSEA AND/OR VOMITING; Start at 20:30 Pantoprazole 40 mg 40 mg DAILY@06 IV Last administered on 09/22/16 06:56; Admin Dose 40 MG; Start 09/21/16 at 06:00 Sodium Bicarbonate/ Dextrose/Sodium Chloride (Na Bicarb/D5-1/ 2ns) 1,100 ml @ 100 mls/hr Q11H IV Last administered on 09/22/16 00:27; Admin Dose 100 MLS/HR ; Start 09/21/16 at 11:00 Morphine Sulfate (morphine) 1 mg Q2H PRN IV PAIN Last administered on 06:56; Admin Dose 1 MG; Start 09/21/16 at 12:30 IV Flush (NS 10 ml) 10 ml PRN PRN IV IV PROTOCOL; Start 09/21/16 at 17:30 Acetaminophen 650 mg 650 mg Q6H PRN NGT PAIN AND OR ELEVATED TEMP Last administered on 09/22/16 09:09; Admin Dose 650 MG; Start 09/22/16 at 00:20 Metronidazole 100 ml @ 100 mls/hr Q8 IVPB Last administered on 09/22/16 09:10 ; Admin Dose 100 MLS/HR; Start 09/22/16 at 08:45 Magnesium Sulfate 50 ml @ 25 mls/hr ONCE ONCE IVPB Last administered on 09:10; Admin Dose 25 MLS/HR; Start 09/22/16 at 08:30; Stop 09/22/16 at 10: 29 Total Parenteral Nutrition 1,000 ml @ 40 mls/hr Q24H IV ; Start 09/22/16 at 13: 00 Norepinephrine/ Dextrose (Levophed/D5W) 500 ml @ 0 mls/hr TITRATE IV ; Start at 09:30 Enoxaparin Sodium 30 mg 30 mg DAILY SC ; Start 09/23/16 at 09:00 Piperacillin Sod/ Tazobactam Sod (Zosyn 2.25gm/ 50ml (Pmx)) 50 ml @ 200 mls/hr Q6 IVPB ; Start 09/22/16 at 12:00 YAMILE LARA MD Sep 22, 2016 10:06
[2016-09-22 10:32] LABS: HEMATOCRIT 19.8 % (37.0-47.0); MEAN CORPUSCULAR HEMOGLOBIN 28.3 pg (29.0-33.0); MEAN CORPUSCULAR HGB CONC 32.5 g/dl (32.0-37.0); MEAN CORPUSCULAR VOLUME 86.8 fl (82.0-101.0); MEAN PLATELET VOLUME 8.1 fl (7.4-10.4); PLATELET COUNT 276 10^3/UL (140-440); RED BLOOD COUNT 2.28 10^6/ul (4.20-5.40); RED CELL DISTRIBUTION WIDTH 16.2 % (11.5-14.5); UNCORRECTED WBC 20.4 10^3/ul (4.8-10.8); WHITE BLOOD COUNT 20.4 10^3/ul (4.8-10.8)
[2016-09-22 10:35] LABS: CONDITION 1; HEMOGLOBIN 6.4 g/dl (12.0-16.0); LH ANALYZER COMMENTS 1; SUSPECT 1
[2016-09-22 10:36] LABS: THROMBIN TIME 14.4 SEC (13.8-19.1)
[2016-09-22 10:45] LABS: PROTIME 20.5 Sec (12.2-14.2)
[2016-09-22] MEDS ORDERED: SOD CHLORIDE 0.9% 250 ML IV* ONE (10:56)
--- NOTE | 2016-09-22 11:47 | CONS ---
Date/Time of Note Date/Time of Note DATE: 09/22/16 TIME: 11:45 Assessment/Plan Assessment/Plan Additional Assessment/Plan Small bowel obstruction with abdominal abscess status post repeat surgery Shock, possibly sepsis versus hypovolemic Acute blood loss anemia Diastolic congestive heart failure Acute appendicitis status post surgery Preserved ejection fraction Hypertension Acute kidney injury. -Patient with significant drop in hemoglobin. Plan for blood transfusion. Currently off IV pressor. Would continue to hold any antihypertensive medications. Consultation Date/Type/Reason Admit Date/Time Sep 19, 2016 at 22:10 Type of Consultation: cv Referring Provider: YAMILE LARA MD 24 HR Interval Summary Free Text/Dictation Patient feeling better. Denies chest pain or shortness of breath. Exam/Review of Systems Vital Signs Vitals Vital Signs Date Time Temp Pulse Resp B/P Pulse Ox O2 Delivery O2 Flow Rate FiO2 09/22/16 11:00 96 22 114/47 96 Nasal Cannula 2.0 09/22/16 08:00 98.2 09/22/16 05:33 31 Intake and Output 09/21/16 09/21/16 09/22/16 15:00 23:00 07:00 Intake Total 735.938 ml 700.938 ml Output Total 75 ml 572 ml 625 ml Balance -75 ml 163.938 ml 75.938 ml Exam No apparent distress Constitutional: alert, oriented Head: normocephalic Neck: supple Respiratory: other (Coarse breath sounds bilaterally, no wheezing) Cardiovascular: other (S1-S2 heard), regular rate and rhythm Gastrointestinal: bowel sounds, other (Diffuse discomfort with palpation), soft Extremities: edema (Trace) Results Result Diagram: 09/22/16 0530 09/22/16 0400 Results 24 hrs Laboratory Tests Test 09/21/16 11:50 09/21/16 13:45 09/21/16 14:00 09/21/16 20:00 Urine Eosinophils % 0.0 Urine Random Creatinine 171.41 Urine Random Sodium 33 Urine Total Protein Anion Gap 14 B-Type Natriuretic Peptide 4610 H Blood Urea Nitrogen 21 H Calcium Level 7.1 L Carbon Dioxide Level 17 L Chloride Level 118 H Creatinine 1.87 H Glucose Level 157 Lactic Acid Level 1.9 Potassium Level 5.1 Sodium Level 144 Arterial Blood HCO3 14.9 L 15.8 L Arterial Blood Base Excess -10.5 L -9.2 L Arterial Blood Oxygen Saturation 93.4 L 93.7 L Daniel Test N/A N/A Arterial Blood Gas Puncture Site A-Line A-Line Arterial Blood Carboxyhemoglobin 0.2 0.3 Arterial Blood Date Drawn 09/21/2016 2:05:00 PM 09/21/2016 8:10:18 PM Arterial Blood Methemoglobin 0.2 0.2 Arterial Blood pCO2 (Temp correct) 31.1 L 31.1 L Arterial Blood pH (Temp corrected) 7.298 *L 7.325 L Arterial Blood pO2 (Temp corrected) 71.6 L 69.1 L Blood Gas A-a O2 Differential 105.8 H 93.8 H Blood Gas Critical Value Read Back Thania PRADO RN Blood Gas Modality NASAL CANNULA NASAL CANNULA Blood Gas Notified Time 09/21/2016 2:21:00 PM 09/21/2016 8:20:09 PM Blood Gas Notified Whom GERTRUDIS ENCARNACION Blood Gas Specimen Source Blood arterial Blood arterial Blood Gas Temperature 37.0 37.0 FiO2 30.0 28.0 Oxyhemoglobin Percent 93.0 93.2 Total Hemoglobin 10.0 L 8.8 L Test 09/22/16 04:00 09/22/16 05:30 09/22/16 07:00 Activated Partial Thromboplast Time 39.3 H Alanine Aminotransferase (ALT/SGPT) 65 Albumin 2.0 L Albumin/Globulin Ratio 0.86 Alkaline Phosphatase 29 L Anion Gap 15 Aspartate Amino Transf (AST/SGOT) 99 H B-Type Natriuretic Peptide 6460 H Blood Urea Nitrogen 24 H Calcium Level 6.8 L Carbon Dioxide Level 19 L Chloride Level 117 H Creatinine 2.21 H Direct Bilirubin 0.00 Globulin 2.30 Glucose Level 189 INR International Normalized Ratio 1.75 Indirect Bilirubin 0.0 Lactic Acid Level 3.4 H Magnesium Level 1.2 L Phosphorus Level 3.3 Platelet Count 276 276 # Potassium Level 4.0 Prothrombin Time 20.5 #H Prothrombin Time Ratio 1.6 Sodium Level 147 H Thrombin Time 14.4 Total Bilirubin 0.0 L Total Protein 4.3 #L Basophils # Pending Basophils % Pending Blood Morphology Comment Eosinophils # Pending Eosinophils % Pending Hematocrit 19.8 #L Hemoglobin 6.4 #*L Lymphocytes # Pending Lymphocytes % Pending Mean Corpuscular Hemoglobin 28.3 L Mean Corpuscular Hemoglobin Concent 32.5 Mean Corpuscular Volume 86.8 Mean Platelet Volume 8.1 Monocytes # Pending Monocytes % Pending Neutrophils # Pending Neutrophils % Pending Nucleated Red Blood Cells # Pending Nucleated Red Blood Cells % Pending Red Blood Count 2.28 #L Red Cell Distribution Width 16.2 H White Blood Count 20.4 H Arterial Blood HCO3 20.7 L Arterial Blood Base Excess -3.9 L Arterial Blood Oxygen Saturation 93.9 L Daniel Test N/A Arterial Blood Gas Puncture Site A-Line Arterial Blood Carboxyhemoglobin 0.4 Arterial Blood Date Drawn 09/22/2016 7:33:30 AM Arterial Blood Methemoglobin 0.5 Arterial Blood pCO2 (Temp correct) 35.2 Arterial Blood pH (Temp corrected) 7.387 Arterial Blood pO2 (Temp corrected) 72.0 L Blood Gas A-a O2 Differential 57.2 H Blood Gas Modality NASAL CANNULA Blood Gas Notified Time 09/22/2016 7:44:06 AM Blood Gas Notified Whom JLD Blood Gas Specimen Source Blood arterial Blood Gas Temperature 37.0 FiO2 24.0 Oxyhemoglobin Percent 93.1 Total Hemoglobin 7.4 L Medications Medications Current Medications Salmeterol Xinafoate/ Fluticasone (Advair 250/50 Diskus) 1 inh BID INH Last administered on 09/22/16 09:11; Admin Dose 1 INH; Start 09/20/16 at 09:00 Tiotropium [place] (Spiriva) 1 inh DAILY INH Last administered on 09/22/16 09: 40; Admin Dose 1 INH; Start 09/20/16 at 09:00 Dorzolamide/ Timolol (Cosopt) 1 drop BID LEFT EYE Last administered on 09:12; Admin Dose 1 DROP; Start 09/20/16 at 13:30 Latanoprost (Xalatan) 1 drop DAILY LEFT EYE Last administered on 09/22/16 09: 15; Admin Dose 1 DROP; Start 09/20/16 at 13:30 Ondansetron HCl (Zofran Inj) 4 mg Q6H PRN IV NAUSEA AND/OR VOMITING; Start at 20:30 Pantoprazole 40 mg 40 mg DAILY@06 IV Last administered on 09/22/16 06:56; Admin Dose 40 MG; Start 09/21/16 at 06:00 Sodium Bicarbonate/ Dextrose/Sodium Chloride (Na Bicarb/D5-1/ 2ns) 1,100 ml @ 100 mls/hr Q11H IV Last administered on 09/22/16 00:27; Admin Dose 100 MLS/HR ; Start 09/21/16 at 11:00 Morphine Sulfate (morphine) 1 mg Q2H PRN IV PAIN Last administered on 06:56; Admin Dose 1 MG; Start 09/21/16 at 12:30 IV Flush (NS 10 ml) 10 ml PRN PRN IV IV PROTOCOL; Start 09/21/16 at 17:30 Acetaminophen 650 mg 650 mg Q6H PRN NGT PAIN AND OR ELEVATED TEMP Last administered on 09/22/16 09:09; Admin Dose 650 MG; Start 09/22/16 at 00:20 Metronidazole 100 ml @ 100 mls/hr Q8 IVPB Last administered on 09/22/16 09:10 ; Admin Dose 100 MLS/HR; Start 09/22/16 at 08:45 Total Parenteral Nutrition 1,000 ml @ 40 mls/hr Q24H IV ; Start 09/22/16 at 13: 00 Norepinephrine/ Dextrose (Levophed/D5W) 500 ml @ 0 mls/hr TITRATE IV ; Start at 09:30 Enoxaparin Sodium 30 mg 30 mg DAILY SC ; Start 09/23/16 at 09:00 Piperacillin Sod/ Tazobactam Sod 50 ml @ 200 mls/hr Q6 IVPB ; Start 09/22/16 at 12:00 Fat Emulsion Intravenous (Liposyn Ii 20%) 500 ml @ 20.833 mls/ hr Q24H IV ; Start 09/22/16 at 13:00 Taco Castillo DO Sep 22, 2016 11:47
[2016-09-22 12:23] LABS: HEMATOCRIT 20.1 % (37.0-47.0)
[2016-09-22 12:35] LABS: HEMOGLOBIN 6.5 g/dl (12.0-16.0)
[2016-09-22] MEDS ORDERED: FAT EMULSION 20% 500 ML IV SCH (13:00)
[2016-09-22] MEDS ORDERED: TPN 1,000 ML IV SCH (13:00)
[2016-09-22] MEDS: PIPER-TAZO 2.25 GM (PMX) 50 ML IVPB SCH ×2 (13:14→17:53)
[2016-09-22 13:36] LABS: LYMPHOCYTES # 1.2 10^3/ul (0.8-2.9); MONOCYTE # 0.6 10^3/ul (0.3-0.9); NEUTROPHIL # 13.1 10^3/ul (1.6-7.5)
[2016-09-22 13:41] LABS: CONDITION 1; HEMATOCRIT 23.8 % (37.0-47.0); HEMOGLOBIN 7.7 g/dl (12.0-16.0); LH ANALYZER COMMENTS 1; MEAN CORPUSCULAR HEMOGLOBIN 28.3 pg (29.0-33.0); MEAN CORPUSCULAR HGB CONC 32.1 g/dl (32.0-37.0); MEAN CORPUSCULAR VOLUME 88.2 fl (82.0-101.0); PLATELET COUNT 292 10^3/UL (140-440); RED CELL DISTRIBUTION WIDTH 16.1 % (11.5-14.5); SUSPECT 1; UNCORRECTED WBC 21.7 10^3/ul (4.8-10.8); WHITE BLOOD COUNT 21.7 10^3/ul (4.8-10.8)
--- NOTE | 2016-09-22 14:14 | PN ---
DATE: 09/22/2016 SUBJECTIVE: No acute changes overnight. The patient is off pressors. Alert, awake, in no distress, afebrile. VITAL SIGNS: Temperature 97.7, pulse 93, respirations 17, blood pressure 119/44 , saturation 94 on nasal cannula at 2 liters. LABORATORY DATA: WBC 20.4, H and H 6.4 and 19.8, platelets 276. BUN 24, creatinine 2.21. INDWELLINGS: The patient has NG tube, right upper extremity PICC, Santos, STEPHANIE, and left radial line. MICROBIOLOGY: All cultures have been negative so far. DIAGNOSTICS: Chest x-ray this morning revealed no significant interval change, mild pulmonary congestion. Renal ultrasound yesterday revealed no evidence of hydronephrosis. ANTIMICROBIALS: The patient is on IV Zosyn. PHYSICAL EXAMINATION: GENERAL: This is a well-nourished, well-developed, fragile, elderly woman who is awake, in no distress. HEENT: Head atraumatic, normocephalic. Sclerae anicteric. Buccal mucosa dry. NECK: Supple, trachea midline. CHEST: Rise symmetrical. Breath sounds diminished to bases. HEART: S1, S2. ABDOMEN: Soft. Bowel sounds hypoactive. EXTREMITIES: Without cyanosis. ASSESSMENT: 1. Resolving sepsis status post shock. 2. Small-bowel obstruction with extensive loculated abscesses in the right lower quadrant, status post diagnostic and exploratory laparotomy, abdominal washout and small bowel resection on 09/20/2016 3. History of chronic obstructive pulmonary disease and hypertension. PLAN: The patient remains stable, although still with significant leukocytosis. She also has acute renal injury and is being seen by Dr. Jeffry Membreno in nephrology consultation. She also has acute anemia and going to how blood transfusion. The patient is being seen by surgery, who thinks that her leukocytosis is most likely reactive. We will continue observing her on the current regimen. Check urine and blood cultures. The patient also was started on Flagyl this afternoon. Dictated By: YASMANY BECERRA PENCIL MAKER for THOMAS WEBSTER/VU Conf#: [id number] DID#: [id number]
[2016-09-22 14:45] LABS: LYMPHOCYTES # 2.8 10^3/ul (0.8-2.9); MONOCYTE # 0.2 10^3/ul (0.3-0.9); NEUTROPHIL # 13.9 10^3/ul (1.6-7.5)
[2016-09-22] MEDS: HYDROmorphONE 1 MG/ML SYG IV PRN ×2 (15:28→22:03)
[2016-09-22] MEDS ORDERED: FAT EMULSION 20% 250 ML IV SCH (16:00)
--- NOTE | 2016-09-22 17:27 | PN ---
DATE: 09/22/2016 SUBJECTIVE: Ms. Aguila is postop day 2 from a small bowel resection. The patient is doing much b gustabo today. She has better urine output and less tachycardia, and now is off pressors. The patien t is still complaining of pain. She denies bowel movements or flatus. OBJECTIVE: VITAL SIGNS: She is currently afebrile with heart rate 97, blood pressure 131/60. Her I's and O's today: Her urine output is greater than 750 mL. ABDOMEN: Soft, mildly distended. Her wound is clean, dry and intact. LABORATORY DATA: Today reveal sodium 147, potassium 4, chloride 117, CO2 19, BUN and creatinine of 24 and 2.1, and a glucose of 189. Her CBC today revealed a white count 22, hematocrit of 24 and harriett telets of 292. Her chest x-ray revealed no change in heart and lungs. ASSESSMENT AND PLAN: Ms. Aguila is postop day 2 from a small bowel resection. 1. Better urine output today. We will follow creatinine, but likely to be decreasing tomorrow. 2. Ileus, await bowel function, ice chips for now. 3. Check hematocrit after 1 unit of blood. I doubt that the patient really ever bled as she has pop d serosanguineous output from her STEPHANIE tube which is actively draining. If there was blood, then the STEPHANIE would likely have clotted or been more sanguineous. Also, the patient did receive 5 liters of fl uid and this likely was dilutional. 4. Remain in the ICU overnight. Dictated By: TRISTAN MYLES/VU Conf#: [id number] DID#: [id number]
[2016-09-22] MEDS: FLUCONAZOLE 100 MG/NS (PMX) 50 ML IVPB SCH (17:53)
[2016-09-22] MEDS: ZOLPIDEM 5 MG TAB PO PRN (21:48)
[2016-09-23] VITALS (24 sets, daily range): BP systolic 104–166; BP diastolic 58–91; PULSE 81–102; RESP 9–20
[2016-09-23] MEDS: HYDROmorphONE 1 MG/ML SYG IV PRN ×6 (00:39→22:28)
[2016-09-23] MEDS: PIPER-TAZO 2.25 GM (PMX) 50 ML IVPB SCH ×4 (00:39→17:29)
[2016-09-23] MEDS: SODIUM BICARBONATE (IV ADD) 100 MEQ in DEXTROSE 5%-0.45% NACL 1,000 ML IV SCH (05:01)
[2016-09-23 05:46] LABS: HEMATOCRIT 25.5 % (37.0-47.0); HEMOGLOBIN 8.5 g/dl (12.0-16.0); MEAN CORPUSCULAR HEMOGLOBIN 29.1 pg (29.0-33.0); MEAN CORPUSCULAR HGB CONC 33.4 g/dl (32.0-37.0); MEAN CORPUSCULAR VOLUME 87.1 fl (82.0-101.0); MEAN PLATELET VOLUME 7.9 fl (7.4-10.4); PLATELET COUNT 249 10^3/UL (140-440); RED BLOOD COUNT 2.93 10^6/ul (4.20-5.40); RED CELL DISTRIBUTION WIDTH 15.2 % (11.5-14.5); UNCORRECTED WBC 23.9 10^3/ul (4.8-10.8); WHITE BLOOD COUNT 23.9 10^3/ul (4.8-10.8)
[2016-09-23 05:57] LABS: POTASSIUM 3.1 mmol/L (3.5-5.1)
[2016-09-23 05:59] LABS: CONDITION 1; LH ANALYZER COMMENTS 1; SUSPECT 1
[2016-09-23 06:00] LABS: CREATININE 1.8 mg/dl (0.44-1.00)
[2016-09-23 06:01] LABS: CALCIUM 7.3 mg/dl (8.4-10.2)
[2016-09-23] MEDS: metroNIDAZOLE 500 MG/NS (PMX) 100 ML IVPB SCH (06:33)
[2016-09-23] MEDS: PANTOPRAZOLE 40 MG INJ IV SCH (06:33)
[2016-09-23] MEDS: SALMETEROL/FLUTICASONE 250/50 INHA INH SCH ×2 (08:27→21:00)
[2016-09-23] MEDS: DORZOLAMIDE/TIMOLOL 10 ML OPH LEFT EYE SCH ×2 (08:27→20:25)
[2016-09-23] MEDS: TIOTROPIUM 18 MCG CAPSULE INHA DEV INH SCH (08:28)
[2016-09-23] MEDS: LATANOPROST 0.005% 2.5 ML OPH LEFT EYE SCH (08:28)
[2016-09-23] MEDS: ENOXAPARIN 30 MG/0.3 ML SYG SC SCH (08:35)
--- NOTE | 2016-09-23 10:07 | CONS ---
Date/Time of Note Date/Time of Note DATE: 09/23/16 TIME: 10:00 Assessment/Plan Assessment/Plan Additional Assessment/Plan 1. Sepsis. 2. Acute kidney injury secondary to acute tubular necrosis from sepsis. 3. Acute hyperkalemia with metabolic acidosis likely secondary to acute kidney injury. 4. Small bowel obstructions status post exploratory laparotomy and abdominal washout 5. History of recent laparoscopic appendectomy. 6. History of hypertension 7. History of chronic obstructive pulmonary disease. 8. History of hypothyroidism. PLAN: stat ABG if PH and HCo3 good then plan is to stop HCO3 drip- if HCO3 drip will be stopped then we will start IVF D5W with 20mEQ KCL at 100 cc/hr KCL 20mEQ IV X 1 extra dose TPN as per G surg and primary will follow up Consultation Date/Type/Reason Admit Date/Time Sep 19, 2016 at 22:10 Initial Consult Date Sep Type of Consultation: NEPHROLOGY Reason for Consultation TONY, hyperkalemia, metabolic acidosis Referring Provider: YAMILE LARA MD 24 HR Interval Summary Free Text/Dictation pt made good urine output,K low, HCO3 28, Cr 1.8, c/o abdominal pain Exam/Review of Systems Vital Signs Vitals Vital Signs Date Time Temp Pulse Resp B/P Pulse Ox O2 Delivery O2 Flow Rate FiO2 09/23/16 09:00 97.6 99 14 163/77 95 Nasal Cannula 09/23/16 08:00 2.0 09/22/16 05:33 31 Intake and Output 09/22/16 09/22/16 09/23/16 15:00 23:00 07:00 Intake Total 1440 ml 1400 ml 750 ml Output Total 605 ml 1615 ml 805 ml Balance 835 ml -215 ml -55 ml Exam GENERAL: Awake, alert, in moderate distress. HEENT: Normal. Oropharynx clear. NG tube in place. NECK: Supple, no JVD, no lymphadenopathy. LUNGS: Decreased breath sounds at both lung bases with minimal expiratory wheezing present. HEART: S1, S2, tachycardia, no murmur. ABDOMEN: Soft. EXTREMITIES: The patient has an exploratory laparotomy dressing on Santos cathter in place NEUROLOGICAL: Nonfocal, intact. PSYCHIATRIC: Appropriate affect and mood. Results Result Diagram: 09/23/16 0450 09/23/16 045 Results 24 hrs Laboratory Tests Test 09/22/16 11:46 09/22/16 12:42 09/23/16 04:50 Hematocrit 20.1 L 23.8 L 25.5 L Hemoglobin 6.5 *L 7.7 L 8.5 L Band Neutrophils % 22.0 H Basophils # Pending Basophils % Pending Blood Morphology Comment Differential Comment MANUAL DIFF Eosinophils # Pending Eosinophils % Pending Lactic Acid Level 3.2 H Lymphocytes # 2.8 Pending Lymphocytes % 13.0 L Pending Mean Corpuscular Hemoglobin 28.3 L 29.1 Mean Corpuscular Hemoglobin Concent 32.1 33.4 Mean Corpuscular Volume 88.2 87.1 Mean Platelet Volume 8.0 7.9 Monocytes # 0.2 L Pending Monocytes % 1.0 Pending Neutrophils # 13.9 H Pending Neutrophils % 64.0 Pending Nucleated Red Blood Cells # Pending Nucleated Red Blood Cells % Pending Platelet Count 292 249 Red Blood Count 2.70 L 2.93 L Red Cell Distribution Width 16.1 H 15.2 H White Blood Count 21.7 H 23.9 H Anion Gap 12 Blood Urea Nitrogen 22 H Calcium Level 7.3 L Carbon Dioxide Level 28 Chloride Level 110 Creatinine 1.80 H Glucose Level 99 # Potassium Level 3.1 L Sodium Level 147 H Medications Medications Current Medications Salmeterol Xinafoate/ Fluticasone (Advair 250/50 Diskus) 1 inh BID INH Last administered on 09/23/16 08:27; Admin Dose 1 INH; Start 09/20/16 at 09:00 Tiotropium [place] (Spiriva) 1 inh DAILY INH Last administered on 09/23/16 08: 28; Admin Dose 1 INH; Start 09/20/16 at 09:00 Dorzolamide/ Timolol (Cosopt) 1 drop BID LEFT EYE Last administered on 08:27; Admin Dose 1 DROP; Start 09/20/16 at 13:30 Latanoprost (Xalatan) 1 drop DAILY LEFT EYE Last administered on 09/23/16 08: 28; Admin Dose 1 DROP; Start 09/20/16 at 13:30 Ondansetron HCl (Zofran Inj) 4 mg Q6H PRN IV NAUSEA AND/OR VOMITING Last administered on 09/23/16 07:59; Admin Dose 4 MG; Start 09/20/16 at 20:30 Pantoprazole 40 mg 40 mg DAILY@06 IV Last administered on 09/23/16 06:33; Admin Dose 40 MG; Start 09/21/16 at 06:00 Sodium Bicarbonate/ Dextrose/Sodium Chloride (Na Bicarb/D5-1/ 2ns) 1,100 ml @ 100 mls/hr Q11H IV Last administered on 09/23/16 05:01; Admin Dose 100 MLS/HR ; Start 09/21/16 at 11:00 Morphine Sulfate (morphine) 1 mg Q2H PRN IV PAIN Last administered on 06:56; Admin Dose 1 MG; Start 09/21/16 at 12:30 IV Flush (NS 10 ml) 10 ml PRN PRN IV IV PROTOCOL; Start 09/21/16 at 17:30 Acetaminophen 650 mg 650 mg Q6H PRN NGT PAIN AND OR ELEVATED TEMP Last administered on 09/22/16 09:09; Admin Dose 650 MG; Start 09/22/16 at 00:20 Metronidazole 100 ml @ 100 mls/hr Q8 IVPB Last administered on 09/23/16 06:33 ; Admin Dose 100 MLS/HR; Start 09/22/16 at 08:45 Norepinephrine/ Dextrose (Levophed/D5W) 500 ml @ 0 mls/hr TITRATE IV ; Start at 09:30 Enoxaparin Sodium 30 mg 30 mg DAILY SC Last administered on 09/23/16 08:35; Admin Dose 30 MG; Start 09/23/16 at 09:00 Piperacillin Sod/ Tazobactam Sod 50 ml @ 200 mls/hr Q6 IVPB Last administered on 09/23/16 06:33; Admin Dose 200 MLS/HR; Start 09/22/16 at 12:00 Fluconazole/ Sodium Chloride (Diflucan 100 Mg/ NS (Pmx)) 50 ml @ 50 mls/hr Q24H IVPB Last administered on 09/22/16 17:53; Admin Dose 50 MLS/HR; Start at 16:00 Hydromorphone HCl (Dilaudid) 0.25 mg Q2H PRN IV MODERATE PAIN LEVEL 4-6 Last administered on 09/22/16 22:03; Admin Dose 0.25 MG; Start 09/22/16 at 15:00 Hydromorphone HCl (Dilaudid) 0.5 mg Q2H PRN IV PAIN LEVEL 7-10 Last administered on 09/23/16t 09:27; Admin Dose 0.5 MG; Start 09/22/16 at 15:00 MADISYN MANUEL MD Sep 23, 2016 10:07
[2016-09-23 10:14] LABS: AADO2 Arterial 103.5 mmHg (7.0-24.0); Arterial Base Excess 2.1 mmol/L (-3.0-3); Arterial COHb 0.3 % (0.0-3.0); Arterial Fraction of Oxyhgb 94.9 % (93.0-99.0); Arterial HCO3 26.8 mmol/L (22.0-26.0); Arterial MetHb 0.2 % (0.0-1.5); Arterial Total Hemglobin 9.2 g/dl (12.0-18.0); MODE NASAL CANNULA
[2016-09-23] MEDS: D5W + KCL 20 MEQ 1,000 ML IV SCH ×2 (10:30→11:19)
--- NOTE | 2016-09-23 10:58 | PN ---
DATE: 09/23/2016 SUBJECTIVE: Ms. Aguila is now postop day 3 from small bowel resection. The patient is complainin g of some abdominal pain. She denies bowel movement or flatus, but she may have actually had a trina l movement. She states she had some blood that she thought was from her vagina when urinating. Thi nking this possibly could have been a bowel movement. VITAL SIGNS: She is currently afebrile. Vital signs stable. Her heart rate in the 90s, blood pres sure 163/77. Her urine output is 900 . STEPHANIE is draining serosanguineous fluid. LABORATORY DATA: Today reveal sodium 147, potassium 3.1, chloride 110, CO2 of 28, BUN and creatinin e 22 and 1.8, and a glucose of 99. Her CBC reveals white count of 24, hematocrit 26 and platelets o f 249. Her blood gas this morning shows pH of 7.4 and a bicarbonate of 27. ASSESSMENT AND PLAN: Ms. Aguila is postop day 3 from small bowel resection. 1. Still await ileus to resolve, but we will discontinue NG tube. 2. Creatinine decreasing and good urinary output. We will replace potassium and change IV fluids. 3. Hematocrit stable. 4. Continue to monitor white count. Dictated By: TRISTAN MYLES/VU Conf#: [id number] DID#: [id number]
[2016-09-23] MEDS ORDERED: POTASSIUM CHLORIDE 20 MEQ in SOD CHLORIDE 0.9% 100 ML IVPB SCH (11:00)
[2016-09-23 11:23] LABS: EOSINOPHILS # 0.2 10^3/ul (0.0-0.5); NEUTROPHIL # 17.4 10^3/ul (1.6-7.5)
--- NOTE | 2016-09-23 14:01 | PN ---
DATE: 09/23/2016 INFECTIOUS DISEASE PROGRESS NOTE SUBJECTIVE: No acute events overnight. No fevers. The patient is alert, feels good, looks comfort able. Family at the bedside. She was started on ice chips. Temperature 97.8, pulse 86, respiratio ns 20, blood pressure 156/80, saturation 99% on 4 liters. WBC 23.9, H and H 8.5 and 25.5, platelets 249, with neutrophils 73, bands 18, BUN 22, creatinine 1.80. MICROBIOLOGY: Cultures since admission have been negative. INDWELLINGS: The patient had a PICC line placed on 09/21/2016. STEPHANIE Santos. ANTIMICROBIALS: Patient is on: 1. Fluconazole. 2. Zosyn. 3. Flagyl was added yesterday, although she has no diarrhea. PHYSICAL EXAMINATION: GENERAL: This is a fragile, well-developed, elderly woman, who is alert, in no distress. HEENT: Head atraumatic, normocephalic. Sclerae anicteric. Buccal mucosa pink, dry. NECK: Supple, trachea midline. CHEST: Chest rise is symmetrical. Breath sounds clear, diminished to the bases. HEART: S1, S2. ABDOMEN: Distended, but soft. Bowel tones hypoactive. EXTREMITIES: Without cyanosis. ASSESSMENT: 1. Status post septic shock. 2. Persistent leukocytosis, possibly reactive. 3. Small-bowel obstruction, with extensive loculated abscesses in the right lower quadrant, status post exploratory laparotomy, abdominal washout and small bowel resection on 09/20/2016. 4. History of chronic obstructive pulmonary disease. 5. Acute renal failure. 6. Hypertension. PLAN: The patient remains stable clinically, with persistent leukocytosis. She is being followed b y surgery. She is on Zosyn and Fluconazole, which we are going to continue. We will discontinue Fl agyl, as she does not have diarrhea, and Zosyn has excellent anaerobic coverage. We will order a est x-ray in the a.m. Consider a repeat CT of the abdomen and pelvis. Dictated By: YASMANY BECERRA PROFESSOR OF JOURNALISM for THOMAS CALIXTO MD NI/NTS Conf#: [id number] DID#: [id number]
--- NOTE | 2016-09-23 16:05 | PN ---
Date/Time of Note Date/Time of Note DATE: 09/23/16 TIME: 16:04 Assessment/Plan VTE Prophylaxis VTE Prophylaxis Intervention: LMWH Assessment/Plan Chief Complaint/Hosp Course 1. Small bowel obstruction s/p Recent Laproscopic Appendectomy Status post small bowel resection x2. Continue postsurgical care, IV fluid, NG tube, pain management and IV antibiotics 2. Sepsis Likely secondary to intra-abdominal abscess and postoperatively infectious disease doctor has been consulted, continue Zosyn and Flagyl Follow-up blood culture, continue aggressive IV fluids 3. Hyperkalemia Continue IV fluid, nephrology has been consulted, follow-up electrolytes in a.m. 4 . Abdominal abscess. Status post drainage by interventional radiologist and Diagnostic laparoscopy, Exploratory laparotomy and abdominal washout. Continue aggressive IV antibiotics 3. COPD 4. History of hypertension At this time patient is hypotensive, we will hold all blood pressure medications 5. Hyperlipidemia 6. Hypothyroidism PPx- Lovenox Problems: Subjective 24 Hr Interval Summary Constitutional: no complaints Exam/Review of Systems Vital Signs Vitals Vital Signs Date Time Temp Pulse Resp B/P Pulse Ox O2 Delivery O2 Flow Rate FiO2 09/23/16 16:00 98.0 89 11 119/81 99 Nasal Cannula 3.0 09/22/16 05:33 31 Intake and Output 09/22/16 09/22/16 09/23/16 15:00 23:00 07:00 Intake Total 1440 ml 1400 ml 850 ml Output Total 605 ml 1615 ml 805 ml Balance 835 ml -215 ml 45 ml Exam Constitutional: alert, oriented Respiratory: clear to auscultation Cardiovascular: regular rate and rhythm Gastrointestinal: soft, No distended Musculoskeletal: nl extremities to inspection Results Result Diagram: 09/23/16 0450 09/23/16 0450 Results 24 hrs Laboratory Tests Test 09/23/16 04:50 09/23/16 10:10 Anion Gap 12 Band Neutrophils % 18.0 H Basophils # Basophils % Blood Morphology Comment Blood Urea Nitrogen 22 H Calcium Level 7.3 L Carbon Dioxide Level 28 Chloride Level 110 Creatinine 1.80 H Differential Comment MANUAL DIFF Eosinophils # 0.2 Eosinophils % 1.0 Glucose Level 99 # Hematocrit 25.5 L Hemoglobin 8.5 L Lymphocytes # 1.0 Lymphocytes % 4.0 L Mean Corpuscular Hemoglobin 29.1 Mean Corpuscular Hemoglobin Concent 33.4 Mean Corpuscular Volume 87.1 Mean Platelet Volume 7.9 Monocytes # 1.0 H Monocytes % 4.0 Neutrophils # 17.4 H Neutrophils % 73.0 Nucleated Red Blood Cells # Nucleated Red Blood Cells % Platelet Count 249 Potassium Level 3.1 L Red Blood Count 2.93 L Red Cell Distribution Width 15.2 H Sodium Level 147 H White Blood Count 23.9 H Arterial Blood HCO3 26.8 H Arterial Blood Base Excess 2.1 Arterial Blood Oxygen Saturation 95.4 Daniel Test N/A Arterial Blood Gas Puncture Site A-Line Arterial Blood Carboxyhemoglobin 0.3 Arterial Blood Date Drawn 09/23/2016 10:05:15 AM Arterial Blood Methemoglobin 0.2 Arterial Blood pCO2 (Temp correct) 42.1 Arterial Blood pH (Temp corrected) 7.421 Arterial Blood pO2 (Temp corrected) 82.6 Blood Gas A-a O2 Differential 103.5 H Blood Gas Modality NASAL CANNULA Blood Gas Notified Time 09/23/2016 10:14:13 AM Blood Gas Notified Whom CARLOS ADDISON Blood Gas Specimen Source Blood arterial Blood Gas Temperature 37.0 FiO2 33.0 Oxyhemoglobin Percent 94.9 Total Hemoglobin 9.2 L Medications Medications Current Medications Salmeterol Xinafoate/ Fluticasone (Advair 250/50 Diskus) 1 inh BID INH Last administered on 09/23/16 08:27; Admin Dose 1 INH; Start 09/20/16 at 09:00 Tiotropium [place] (Spiriva) 1 inh DAILY INH Last administered on 09/23/16 08: 28; Admin Dose 1 INH; Start 09/20/16 at 09:00 Dorzolamide/ Timolol (Cosopt) 1 drop BID LEFT EYE Last administered on 08:27; Admin Dose 1 DROP; Start 09/20/16 at 13:30 Latanoprost (Xalatan) 1 drop DAILY LEFT EYE Last administered on 09/23/16 08: 28; Admin Dose 1 DROP; Start 09/20/16 at 13:30 Ondansetron HCl (Zofran Inj) 4 mg Q6H PRN IV NAUSEA AND/OR VOMITING Last administered on 09/23/16 07:59; Admin Dose 4 MG; Start 09/20/16 at 20:30 Pantoprazole (Protonix Iv) 40 mg DAILY@06 IV Last administered on 09/23/16 06: 33; Admin Dose 40 MG; Start 09/21/16 at 06:00 Morphine Sulfate (morphine) 1 mg Q2H PRN IV PAIN Last administered on 06:56; Admin Dose 1 MG; Start 09/21/16 at 12:30 IV Flush (NS 10 ml) 10 ml PRN PRN IV IV PROTOCOL; Start 09/21/16 at 17:30 Acetaminophen 650 mg 650 mg Q6H PRN NGT PAIN AND OR ELEVATED TEMP Last administered on 09/22/16 09:09; Admin Dose 650 MG; Start 09/22/16 at 00:20 Norepinephrine/ Dextrose (Levophed/D5W) 500 ml @ 0 mls/hr TITRATE IV ; Start at 09:30 Enoxaparin Sodium 30 mg 30 mg DAILY SC Last administered on 09/23/16 08:35; Admin Dose 30 MG; Start 09/23/16 at 09:00 Piperacillin Sod/ Tazobactam Sod 50 ml @ 200 mls/hr Q6 IVPB Last administered on 09/23/16 11:19; Admin Dose 200 MLS/HR; Start 09/22/16 at 12:00 Fluconazole/ Sodium Chloride (Diflucan 100 Mg/ NS (Pmx)) 50 ml @ 50 mls/hr Q24H IVPB Last administered on 09/22/16 17:53; Admin Dose 50 MLS/HR; Start at 16:00 Hydromorphone HCl (Dilaudid) 0.25 mg Q2H PRN IV MODERATE PAIN LEVEL 4-6 Last administered on 09/22/16 22:03; Admin Dose 0.25 MG; Start 09/22/16 at 15:00 Hydromorphone HCl 0.5 mg 0.5 mg Q2H PRN IV PAIN LEVEL 7-10 Last administered on 09/23/16 14:38; Admin Dose 0.5 MG; Start 09/22/16 at 15:00 Potassium Chloride/Dextrose (D5W + KCl 20 Meq) 1,000 ml @ 75 mls/hr [id number] IV Last administered on 09/23/16 11:19; Admin Dose 75 MLS/HR; Start 09/23/16 at 10:30 ELIZA DUNNE Sep 23, 2016 16:05
[2016-09-23] MEDS: FLUCONAZOLE 100 MG/NS (PMX) 50 ML IVPB SCH (16:07)
--- NOTE | 2016-09-23 16:14 | CONS ---
Date/Time of Note Date/Time of Note DATE: 09/23/16 TIME: 16:11 Consult Date/Type/Reason Admit Date/Time Sep 19, 2016 at 22:10 Initial Consult Date Type of Consultation: Pulm Ordering Provider: YAMILE LARA MD Subjective No events overnight Objective Vital Signs Date Time Temp Pulse Resp B/P Pulse Ox O2 Delivery O2 Flow Rate FiO2 09/23/16 16:00 98.0 89 11 119/81 99 Nasal Cannula 3.0 09/22/16 05:33 31 Intake and Output 09/22/16 09/22/16 09/23/16 14:59 22:59 06:59 Intake Total 1440 ml 1400 ml 850 ml Output Total 565 ml 1515 ml 955 ml Balance 875 ml -115 ml -105 ml HEENT: Neck supple; no JVD; no LAD CVS: RRR, S1 and S2 CHEST: Clear ABD: Soft, NT, + BS EXT: No c/c/e Results/Medications Result Diagram: 09/23/16 0450 09/23/16 0450 Results 24 hrs Laboratory Tests Test 09/23/16 04:50 09/23/16 10:10 Anion Gap 12 Band Neutrophils % 18.0 H Basophils # Basophils % Blood Morphology Comment Blood Urea Nitrogen 22 H Calcium Level 7.3 L Carbon Dioxide Level 28 Chloride Level 110 Creatinine 1.80 H Differential Comment MANUAL DIFF Eosinophils # 0.2 Eosinophils % 1.0 Glucose Level 99 # Hematocrit 25.5 L Hemoglobin 8.5 L Lymphocytes # 1.0 Lymphocytes % 4.0 L Mean Corpuscular Hemoglobin 29.1 Mean Corpuscular Hemoglobin Concent 33.4 Mean Corpuscular Volume 87.1 Mean Platelet Volume 7.9 Monocytes # 1.0 H Monocytes % 4.0 Neutrophils # 17.4 H Neutrophils % 73.0 Nucleated Red Blood Cells # Nucleated Red Blood Cells % Platelet Count 249 Potassium Level 3.1 L Red Blood Count 2.93 L Red Cell Distribution Width 15.2 H Sodium Level 147 H White Blood Count 23.9 H Arterial Blood HCO3 26.8 H Arterial Blood Base Excess 2.1 Arterial Blood Oxygen Saturation 95.4 Daniel Test N/A Arterial Blood Gas Puncture Site A-Line Arterial Blood Carboxyhemoglobin 0.3 Arterial Blood Date Drawn 09/23/2016 10:05:15 AM Arterial Blood Methemoglobin 0.2 Arterial Blood pCO2 (Temp correct) 42.1 Arterial Blood pH (Temp corrected) 7.421 Arterial Blood pO2 (Temp corrected) 82.6 Blood Gas A-a O2 Differential 103.5 H Blood Gas Modality NASAL CANNULA Blood Gas Notified Time 09/23/2016 10:14:13 AM Blood Gas Notified Whom AZAELCARLOS Blood Gas Specimen Source Blood arterial Blood Gas Temperature 37.0 FiO2 33.0 Oxyhemoglobin Percent 94.9 Total Hemoglobin 9.2 L Medications Current Medications Salmeterol Xinafoate/ Fluticasone (Advair 250/50 Diskus) 1 inh BID INH Last administered on 09/23/16 08:27; Admin Dose 1 INH; Start 09/20/16 at 09:00 Tiotropium [place] (Spiriva) 1 inh DAILY INH Last administered on 09/23/16 08: 28; Admin Dose 1 INH; Start 09/20/16 at 09:00 Dorzolamide/ Timolol (Cosopt) 1 drop BID LEFT EYE Last administered on 08:27; Admin Dose 1 DROP; Start 09/20/16 at 13:30 Latanoprost (Xalatan) 1 drop DAILY LEFT EYE Last administered on 09/23/16 08: 28; Admin Dose 1 DROP; Start 09/20/16 at 13:30 Ondansetron HCl (Zofran Inj) 4 mg Q6H PRN IV NAUSEA AND/OR VOMITING Last administered on 09/23/16 07:59; Admin Dose 4 MG; Start 09/20/16 at 20:30 Pantoprazole (Protonix Iv) 40 mg DAILY@06 IV Last administered on 09/23/16 06: 33; Admin Dose 40 MG; Start 09/21/16 at 06:00 Morphine Sulfate (morphine) 1 mg Q2H PRN IV PAIN Last administered on 06:56; Admin Dose 1 MG; Start 09/21/16 at 12:30 IV Flush (NS 10 ml) 10 ml PRN PRN IV IV PROTOCOL; Start 09/21/16 at 17:30 Acetaminophen 650 mg 650 mg Q6H PRN NGT PAIN AND OR ELEVATED TEMP Last administered on 09/22/16 09:09; Admin Dose 650 MG; Start 09/22/16 at 00:20 Norepinephrine/ Dextrose (Levophed/D5W) 500 ml @ 0 mls/hr TITRATE IV ; Start at 09:30 Enoxaparin Sodium 30 mg 30 mg DAILY SC Last administered on 09/23/16 08:35; Admin Dose 30 MG; Start 09/23/16 at 09:00 Piperacillin Sod/ Tazobactam Sod 50 ml @ 200 mls/hr Q6 IVPB Last administered on 09/23/16 11:19; Admin Dose 200 MLS/HR; Start 09/22/16 at 12:00 Fluconazole/ Sodium Chloride (Diflucan 100 Mg/ NS (Pmx)) 50 ml @ 50 mls/hr Q24H IVPB Last administered on 09/23/16 16:07; Admin Dose 50 MLS/HR; Start at 16:00 Hydromorphone HCl (Dilaudid) 0.25 mg Q2H PRN IV MODERATE PAIN LEVEL 4-6 Last administered on 09/22/16 22:03; Admin Dose 0.25 MG; Start 09/22/16 at 15:00 Hydromorphone HCl 0.5 mg 0.5 mg Q2H PRN IV PAIN LEVEL 7-10 Last administered on 09/23/16 14:38; Admin Dose 0.5 MG; Start 09/22/16 at 15:00 Potassium Chloride/Dextrose (D5W + KCl 20 Meq) 1,000 ml @ 75 mls/hr [id number] IV Last administered on 09/23/16 11:19; Admin Dose 75 MLS/HR; Start 09/23/16 at 10:30 Assessment/Plan Additional Assessment/Plan IMP: 1. s/p septic shock 2. s/p appy with abscess 3. SBO 4. Leukocytosis 5. Azotemia RECS: 1. Abx per 2. Mobilize OOB 3. Am labs REGINALDO TRUONG MD Sep 23, 2016 16:14
[2016-09-23] MEDS: ZOLPIDEM 5 MG TAB PO PRN (22:23)
[2016-09-24] VITALS (24 sets, daily range): BP systolic 104–146; BP diastolic 56–112; PULSE 76–89; RESP 8–20
[2016-09-24] MEDS: PIPER-TAZO 2.25 GM (PMX) 50 ML IVPB SCH ×5 (00:40→17:24)
[2016-09-24] MEDS: D5W + KCL 20 MEQ 1,000 ML IV SCH ×4 (00:40→14:20)
[2016-09-24] MEDS: HYDROmorphONE 1 MG/ML SYG IV PRN ×5 (04:19→21:20)
--- NOTE | 2016-09-24 05:39 | RADRPT ---
PROCEDURE: XR Chest. CLINICAL INDICATION: Pneumonia TECHNIQUE: Portable single view of the chest COMPARISON: 09/22 FINDINGS: Endotracheal tube has been removed. PICC line remains in place. Cardiomegaly is again seen. Sligh t bibasilar subsegmental atelectasis and top normal pulmonary vascularity. IMPRESSION: Removal of nasogastric tube. Otherwise stable exam. RPTAT: HLBE Nicole Goff Physician Date Time Electronically viewed and signed by Nicole Goff, Physician on 09/24/2016 05:39 LE/
[2016-09-24] MEDS: PANTOPRAZOLE 40 MG INJ IV SCH (05:49)
[2016-09-24 05:51] LABS: HEMOGLOBIN 8.3 g/dl (12.0-16.0); MEAN CORPUSCULAR HGB CONC 33.2 g/dl (32.0-37.0); MEAN CORPUSCULAR VOLUME 87.3 fl (82.0-101.0); MEAN PLATELET VOLUME 8.1 fl (7.4-10.4); PLATELET COUNT 224 10^3/UL (140-440); RED BLOOD COUNT 2.86 10^6/ul (4.20-5.40); RED CELL DISTRIBUTION WIDTH 15.4 % (11.5-14.5); UNCORRECTED WBC 20.4 10^3/ul (4.8-10.8); WHITE BLOOD COUNT 20.4 10^3/ul (4.8-10.8)
[2016-09-24 06:00] LABS: SUSPECT 1
[2016-09-24 06:01] LABS: CONDITION 1; LH ANALYZER COMMENTS 1
[2016-09-24 06:15] LABS: INR 1.32; PROTIME 16.5 Sec (12.2-14.2); PT RATIO 1.3
[2016-09-24 06:17] LABS: PARTIAL THROMBOPLASTIN TIME 33.3 Sec (25.0-35.0)
[2016-09-24 06:20] LABS: CALCIUM 7.2 mg/dl (8.4-10.2)
[2016-09-24 07:15] LABS: POTASSIUM 4.7 mmol/L (3.5-5.1)
[2016-09-24 07:18] LABS: CREATININE 1.41 mg/dl (0.44-1.00)
[2016-09-24 07:36] LABS: PHOSPHORUS 3.1 mg/dl (2.5-4.9)
[2016-09-24 07:37] LABS: MAGNESIUM 1.7 mg/dl (1.7-2.5)
[2016-09-24] MEDS: DORZOLAMIDE/TIMOLOL 10 ML OPH LEFT EYE SCH ×2 (08:02→21:18)
[2016-09-24] MEDS: TIOTROPIUM 18 MCG CAPSULE INHA DEV INH SCH (08:02)
[2016-09-24] MEDS: LATANOPROST 0.005% 2.5 ML OPH LEFT EYE SCH (08:02)
[2016-09-24] MEDS: SALMETEROL/FLUTICASONE 250/50 INHA INH SCH ×2 (08:02→21:18)
[2016-09-24] MEDS: ENOXAPARIN 30 MG/0.3 ML SYG SC SCH (08:14)
[2016-09-24 09:33] LABS: LYMPHOCYTES # 1.4 10^3/ul (0.8-2.9); MONOCYTE # 0.8 10^3/ul (0.3-0.9); NEUTROPHIL # 14.1 10^3/ul (1.6-7.5)
--- NOTE | 2016-09-24 12:24 | PN ---
Date/Time of Note Date/Time of Note DATE: 09/24/16 TIME: 12:23 Assessment/Plan VTE Prophylaxis VTE Prophylaxis Intervention: LMWH Assessment/Plan Chief Complaint/Hosp Course 1. Small bowel obstruction s/p Recent Laproscopic Appendectomy Status post small bowel resection x2. Continue postsurgical care, IV fluid, NG tube, pain management and IV antibiotics 2. Sepsis Likely secondary to intra-abdominal abscess and postoperatively ID following, continue Zosyn and Flagyl Follow-up blood culture, continue aggressive IV fluids 3. Hyperkalemia Continue IV fluid, nephrology has been consulted, follow-up electrolytes in a.m. 4 . Abdominal abscess. Status post drainage by interventional radiologist and Diagnostic laparoscopy, Exploratory laparotomy and abdominal washout. Continue aggressive IV antibiotics 3. COPD 4. History of hypertension At this time patient is hypotensive, we will hold all blood pressure medications 5. Hyperlipidemia 6. Hypothyroidism Dispo- DG to Tele when cleared by Surgeon Noel Vincent Problems: Subjective 24 Hr Interval Summary Constitutional: no complaints Exam/Review of Systems Vital Signs Vitals Vital Signs Date Time Temp Pulse Resp B/P Pulse Ox O2 Delivery O2 Flow Rate FiO2 09/24/16 12:00 97.9 80 12 132/65 98 Nasal Cannula 3.0 09/22/16 05:33 31 Intake and Output 09/23/16 09/23/16 09/24/16 15:00 23:00 07:00 Intake Total 660 ml 700 ml 650 ml Output Total 755 ml 560 ml 375 ml Balance -95 ml 140 ml 275 ml Exam Constitutional: alert, oriented Respiratory: clear to auscultation Cardiovascular: regular rate and rhythm Gastrointestinal: soft Musculoskeletal: nl extremities to inspection Results Result Diagram: 09/24/16 0440 09/24/16 0440 Results 24 hrs Laboratory Tests Test 09/24/16 04:40 09/24/16 06:31 Activated Partial Thromboplast Time 33.3 Anion Gap 12 Band Neutrophils % 20.0 H Basophils # Basophils % Blood Morphology Comment Blood Urea Nitrogen 20 Calcium Level 7.2 L Carbon Dioxide Level 26 Chloride Level 101 Creatinine 1.41 H Differential Comment MANUAL DIFF Eosinophils # Eosinophils % Glucose Level 334 #H Hematocrit 25.0 L Hemoglobin 8.3 L INR International Normalized Ratio 1.32 Lymphocytes # 1.4 Lymphocytes % 7.0 L Magnesium Level 1.7 Mean Corpuscular Hemoglobin 29.0 Mean Corpuscular Hemoglobin Concent 33.2 Mean Corpuscular Volume 87.3 Mean Platelet Volume 8.1 Monocytes # 0.8 Monocytes % 4.0 Neutrophils # 14.1 H Neutrophils % 69.0 Nucleated Red Blood Cells # Nucleated Red Blood Cells % Phosphorus Level 3.1 Platelet Count 224 Potassium Level 4.7 Prothrombin Time 16.5 H Prothrombin Time Ratio 1.3 Red Blood Count 2.86 L Red Cell Distribution Width 15.4 H Sodium Level 134 L White Blood Count 20.4 H Bedside Glucose 100 Medications Medications Current Medications Salmeterol Xinafoate/ Fluticasone (Advair 250/50 Diskus) 1 inh BID INH Last administered on 09/24/16 08:02; Admin Dose 1 INH; Start 09/20/16 at 09:00 Tiotropium [place] (Spiriva) 1 inh DAILY INH Last administered on 09/24/16 08: 02; Admin Dose 1 INH; Start 09/20/16 at 09:00 Dorzolamide/ Timolol (Cosopt) 1 drop BID LEFT EYE Last administered on 08:02; Admin Dose 1 DROP; Start 09/20/16 at 13:30 Latanoprost (Xalatan) 1 drop DAILY LEFT EYE Last administered on 09/24/16 08: 02; Admin Dose 1 DROP; Start 09/20/16 at 13:30 Ondansetron HCl (Zofran Inj) 4 mg Q6H PRN IV NAUSEA AND/OR VOMITING Last administered on 09/23/16 07:59; Admin Dose 4 MG; Start 09/20/16 at 20:30 Pantoprazole (Protonix Iv) 40 mg DAILY@06 IV Last administered on 09/24/16 05: 49; Admin Dose 40 MG; Start 09/21/16 at 06:00 Morphine Sulfate (morphine) 1 mg Q2H PRN IV PAIN Last administered on 06:56; Admin Dose 1 MG; Start 09/21/16 at 12:30 IV Flush (NS 10 ml) 10 ml PRN PRN IV IV PROTOCOL; Start 09/21/16 at 17:30 Acetaminophen (Tylenol Liquid) 650 mg Q6H PRN NGT PAIN AND OR ELEVATED TEMP Last administered on 09/22/16 09:09; Admin Dose 650 MG; Start 09/22/16 at 00:20 Enoxaparin Sodium 30 mg 30 mg DAILY SC Last administered on 09/24/16 08:14; Admin Dose 30 MG; Start 09/23/16 at 09:00 Piperacillin Sod/ Tazobactam Sod 50 ml @ 200 mls/hr Q6 IVPB Last administered on 09/24/16 11:26; Admin Dose 200 MLS/HR; Start 09/22/16 at 12:00 Fluconazole/ Sodium Chloride (Diflucan 100 Mg/ NS (Pmx)) 50 ml @ 50 mls/hr Q24H IVPB Last administered on 09/23/16 16:07; Admin Dose 50 MLS/HR; Start at 16:00 Hydromorphone HCl (Dilaudid) 0.25 mg Q2H PRN IV MODERATE PAIN LEVEL 4-6 Last administered on 09/22/16 22:03; Admin Dose 0.25 MG; Start 09/22/16 at 15:00 Hydromorphone HCl 0.5 mg 0.5 mg Q2H PRN IV PAIN LEVEL 7-10 Last administered on 09/24/16 08:01; Admin Dose 0.5 MG; Start 09/22/16 at 15:00 Potassium Chloride/Dextrose (D5W + KCl 20 Meq) 1,000 ml @ 75 mls/hr [id number] IV Last administered on 09/24/16 00:42; Admin Dose 75 MLS/HR; Start 09/23/16 at 10:30 ELIZA DUNNE Sep 24, 2016 12:24
--- NOTE | 2016-09-24 14:21 | PN ---
DATE: 09/24/2016 SUBJECTIVE: Ms. Aguila is postoperative day 4 from a small bowel resection. The patient is still complaining of pain. She has not passed gas or had flatus. VITAL SIGNS: She is currently afebrile. Vital signs stable. Her urine output overnight was over 2 liters. Her STEPHANIE has minimal serosanguineous output. ABDOMEN: Soft with less distention. Her wound is clean, dry and intact with good packing in place. LABORATORY DATA: Today reveal white count of 20, hematocrit 25 and platelets of 224. Sodium 134, p otassium 4.7, chloride 101, CO2 26, BUN and creatinine 20 and 1.4, glucose of 100 on a repeat. Her microbiology has all been negative as well. ASSESSMENT AND PLAN: Ms. Aguila is an 86-year-old female postop day 4 from small bowel resection. 1. Ileus. This seems to be resolving as she had less distention. Advance to clears once has bowel movement or passes flatus. 2. Continue to trend white count. The patient has been afebrile since surgery and her white count is finally decreasing. 3. Urine output improving and creatinine is decreasing. If creatinine is within normal limits [place], will begin Toradol for pain management. 4. Continue current care. The patient is stable for transfer. Dictated By: TRISTAN MYLES/VU Conf#: [id number] DID#: [id number]
--- NOTE | 2016-09-24 15:51 | CONS ---
Date/Time of Note Date/Time of Note DATE: 09/24/16 TIME: 15:50 Consult Date/Type/Reason Admit Date/Time Sep 19, 2016 at 22:10 Type of Consultation: Pulm Ordering Provider: YAMILE LARA MD Subjective better. + bowel sounds. Objective Vital Signs Date Time Temp Pulse Resp B/P Pulse Ox O2 Delivery O2 Flow Rate FiO2 09/24/16 15:48 3.0 09/24/16 14:00 84 11 125/65 95 Nasal Cannula 09/24/16 12:00 97.9 09/22/16 05:33 31 Intake and Output 09/23/16 09/23/16 09/24/16 15:00 23:00 07:00 Intake Total 660 ml 700 ml 650 ml Output Total 755 ml 560 ml 375 ml Balance -95 ml 140 ml 275 ml HEENT: Neck supple; no JVD; no LAD CVS: RRR, S1 and S2 CHEST: Clear ABD: Soft, NT, + BS EXT: No c/c/e Results/Medications Result Diagram: 09/24/1643909/24/16 0440 Results 24 hrs Laboratory Tests Test 09/24/16 04:40 09/24/16 06:31 Activated Partial Thromboplast Time 33.3 Anion Gap 12 Band Neutrophils % 20.0 H Basophils # Basophils % Blood Morphology Comment Blood Urea Nitrogen 20 Calcium Level 7.2 L Carbon Dioxide Level 26 Chloride Level 101 Creatinine 1.41 H Differential Comment MANUAL DIFF Eosinophils # Eosinophils % Glucose Level 334 #H Hematocrit 25.0 L Hemoglobin 8.3 L INR International Normalized Ratio 1.32 Lymphocytes # 1.4 Lymphocytes % 7.0 L Magnesium Level 1.7 Mean Corpuscular Hemoglobin 29.0 Mean Corpuscular Hemoglobin Concent 33.2 Mean Corpuscular Volume 87.3 Mean Platelet Volume 8.1 Monocytes # 0.8 Monocytes % 4.0 Neutrophils # 14.1 H Neutrophils % 69.0 Nucleated Red Blood Cells # Nucleated Red Blood Cells % Phosphorus Level 3.1 Platelet Count 224 Potassium Level 4.7 Prothrombin Time 16.5 H Prothrombin Time Ratio 1.3 Red Blood Count 2.86 L Red Cell Distribution Width 15.4 H Sodium Level 134 L White Blood Count 20.4 H Bedside Glucose 100 Medications Current Medications Salmeterol Xinafoate/ Fluticasone (Advair 250/50 Diskus) 1 inh BID INH Last administered on 09/24/16 08:02; Admin Dose 1 INH; Start 09/20/16 at 09:00 Tiotropium [place] (Spiriva) 1 inh DAILY INH Last administered on 09/24/16 08: 02; Admin Dose 1 INH; Start 09/20/16 at 09:00 Dorzolamide/ Timolol (Cosopt) 1 drop BID LEFT EYE Last administered on 08:02; Admin Dose 1 DROP; Start 09/20/16 at 13:30 Latanoprost (Xalatan) 1 drop DAILY LEFT EYE Last administered on 09/24/16 08: 02; Admin Dose 1 DROP; Start 09/20/16 at 13:30 Ondansetron HCl (Zofran Inj) 4 mg Q6H PRN IV NAUSEA AND/OR VOMITING Last administered on 09/23/16 07:59; Admin Dose 4 MG; Start 09/20/16 at 20:30 Pantoprazole (Protonix Iv) 40 mg DAILY@06 IV Last administered on 09/24/16 05: 49; Admin Dose 40 MG; Start 09/21/16 at 06:00 Morphine Sulfate (morphine) 1 mg Q2H PRN IV PAIN Last administered on 06:56; Admin Dose 1 MG; Start 09/21/16 at 12:30 IV Flush (NS 10 ml) 10 ml PRN PRN IV IV PROTOCOL; Start 09/21/16 at 17:30 Acetaminophen (Tylenol Liquid) 650 mg Q6H PRN NGT PAIN AND OR ELEVATED TEMP Last administered on 09/22/16 09:09; Admin Dose 650 MG; Start 09/22/16 at 00:20 Enoxaparin Sodium 30 mg 30 mg DAILY SC Last administered on 09/24/16 08:14; Admin Dose 30 MG; Start 09/23/16 at 09:00 Piperacillin Sod/ Tazobactam Sod 50 ml @ 200 mls/hr Q6 IVPB Last administered on 09/24/16 11:26; Admin Dose 200 MLS/HR; Start 09/22/16 at 12:00 Fluconazole/ Sodium Chloride (Diflucan 100 Mg/ NS (Pmx)) 50 ml @ 50 mls/hr Q24H IVPB Last administered on 09/23/16 16:07; Admin Dose 50 MLS/HR; Start at 16:00 Hydromorphone HCl (Dilaudid) 0.25 mg Q2H PRN IV MODERATE PAIN LEVEL 4-6 Last administered on 09/22/16 22:03; Admin Dose 0.25 MG; Start 09/22/16 at 15:00 Hydromorphone HCl 0.5 mg 0.5 mg Q2H PRN IV PAIN LEVEL 7-10 Last administered on 09/24/16 12:24; Admin Dose 0.5 MG; Start 09/22/16 at 15:00 Potassium Chloride/Dextrose (D5W + KCl 20 Meq) 1,000 ml @ 75 mls/hr [id number] IV Last administered on 09/24/16 14:20; Admin Dose 75 MLS/HR; Start 09/23/16 at 10:30 Assessment/Plan Additional Assessment/Plan IMP: 1. s/p septic shock 2. s/p appy with abscess 3. SBO/ilues 4. Leukocytosis 5. Azotemia RECS: 1. Abx per ID 2. Mobilize OOB 3. Advance clears 4. ICS REGINALDO TRUONG MD Sep 24, 2016 15:51
[2016-09-24] MEDS: FLUCONAZOLE 100 MG/NS (PMX) 50 ML IVPB SCH (15:54)
--- NOTE | 2016-09-24 17:36 | PN ---
DATE: 09/24/2016 SUBJECTIVE: Discussed with the staff. Rhythm strip was reviewed. The patient remains in sinus rhy thm. No chest pain or pressure. She does still complain of abdominal pain. No palpitation. Blood pressure has remained stable. MEDICATIONS: Reviewed as per medical reconciliation, personally reviewed. PHYSICAL EXAMINATION: VITAL SIGNS: Temperature 98, heart rate of 83, blood pressure 134/73, respiration rate of 17, satur ating 97%. HEENT: Normocephalic, atraumatic. Pupils are equal. CARDIOVASCULAR: Regular rate and rhythm. PULMONARY: With no wheezes heard. GASTROINTESTINAL: Status post surgery, otherwise soft. Mild tenderness to palpation. EXTREMITIES: Positive lower extremity edema. NEUROLOGIC: Awake, responds appropriately. PSYCHIATRIC: Appeared to be calm and pleasant. LABORATORY: Shows WBC of 20.4, hemoglobin 8.3, platelets of 224. Sodium 134, potassium 4.7, BUN of 20, creatinine 1.41, glucose of 331. ASSESSMENT AND PLAN: 1. Small-bowel obstruction status post abdominal surgery. 2. Status post shock. 3. Acute renal failure, currently improved. 4. Fluid overload/congestive heart failure with diastolic dysfunction, but normal ventricular systo lic function. 5. History of hypertension, currently stable. 6. Severe anemia, status post transfusion. RECOMMENDATIONS: The patient is currently n.p.o. Continue supportive care. Antibiotic as per ID's recommendation. The patient to be transferred to telemetry once okay from the surgery standpoint. Dr. Castillo and associate will follow up tomorrow. Dictated By: TAMMI HENRY MD AV/NTS Conf#: [id number] DID#: [id number] CC: REGINALDO TRUONG MD; LISA ENGLISH MD; ELIZA DUNNE MD;*EndCC*
--- NOTE | 2016-09-24 17:46 | PN ---
DATE: 09/23/2016 CARDIOLOGY FOLLOWUP SUBJECTIVE: Discussed with the staff, discussed with the patient's daughter, discussed with the gra nddaughter. Rhythm strip was reviewed. The patient remains in sinus rhythm. No chest pain or pres sure. Has had abdominal pain earlier which has improved with the pain medication. Blood pressure w as elevated up to 160, it has come down now. Denies any PND, orthopnea. MEDICATIONS: Reviewed. PHYSICAL EXAMINATION: VITAL SIGNS: Temperature 97.8, heart rate of 91, blood pressure 104/75, respiratory rate of 12, sat urating 94% on cannula. HEENT: Normocephalic, atraumatic. No . Pupils are equal and round. CARDIOVASCULAR: Regular rate and rhythm, systolic murmur. PULMONARY: Anteriorly with no wheezes heard. ABDOMEN: Status post surgery, drainage in place. Positive tender to palpation, but no rebound or g uarding. EXTREMITIES: With positive lower extremity edema. NEUROLOGIC: Awake and alert. PSYCHIATRIC: Calm, pleasant. LABORATORY DATA: WBC of 23.9, hemoglobin 8.5, platelets 249. Sodium 147, potassium 3.1, BUN of 22, creatinine 1.8, glucose 99. of 3.2 as of yesterday. Albumin was 2 as of yesterday. ASSESSMENT AND PLAN: 1. Small-bowel obstruction status post surgery. 2. Status post small bowel resection x2. 3. Sepsis, hypotension, currently blood pressure has improved. 4. Electrolyte abnormalities. 5. Renal failure. 6. Abdominal abscess, status post drainage in place. 7. History of chronic obstructive pulmonary disease, currently stable. 8. Hypertension, currently stable. 9. Dyslipidemia. 10. Hypothyroidism. 11. History of congestive heart failure secondary to diastolic dysfunction, currently appears to be stable. RECOMMENDATIONS: The patient has been transfused. We will continue with the current cardiac care. Electrolytes including potassium to be replaced. DVT prophylaxis with Lovenox will be continued. Pain management as per internal medicine. Antibiotic as per ID's recommendation. Dictated By: TAMMI HENRY MD AV/VU Conf#: [id number] DID#: [id number] CC: YAMILE LARA MD;*EndCC*
--- NOTE | 2016-09-24 18:01 | PN ---
DATE: SUBJECTIVE: No acute events overnight. No fevers. The patient is lying comfortably in bed. VITAL SIGNS: Temperature 98.2, pulse 83, respirations 12, blood pressure 134/72, saturation 97% on 3 liters. LABORATORY DATA: WBC 20.4, H and H 8.3 and 25, platelets of 24, neutrophils 69, bands 20, lymphs 7, monos 4. Normal electrolytes. BUN 20, creatinine 1.41, glucose 334. MICROBIOLOGY: Cultures have been negative. INDWELLINGS: PICC line placed on 09/21, Santos, left STEPHANIE. ANTIMICROBIALS: 1. Zosyn. 2. Fluconazole. DIAGNOSTICS: Chest x-ray this morning revealed cardiomegaly, slight bibasilar atelectasis. PHYSICAL EXAMINATION: GENERAL: Well-developed, fragile, elderly woman who is in no distress. HEENT: Head atraumatic, normocephalic. Sclerae anicteric. Buccal mucosa dry. NECK: Supple, trachea midline. CHEST: Rise symmetrical. Breath sounds diminished to bases. HEART: S1, S2. ABDOMEN: Soft, bowel tones present. EXTREMITIES: No cyanosis. ASSESSMENT: 1. Status post sepsis with shock. 2. Small-bowel obstruction with extensive loculated abscesses status post exploratory laparotomy, a bdominal washout, and small bowel resection on 09/20/2016. 3. Leukocytosis, secondary to above. 4. History of chronic obstructive pulmonary disease. 5. Renal failure, acute on possibly chronic. 6. Hypertension. PLAN: The patient remains stable. We will continue her on current antimicrobials, await for clinic al improvement, follow surgical recommendations. Dictated By: YASMANY BECERRA WATERMASTER for THOMAS WEBSTER/VU Conf#: [id number] DID#: [id number]
--- NOTE | 2016-09-24 18:02 | CONS ---
Date/Time of Note Date/Time of Note DATE: 09/24/16 TIME: 17:59 Assessment/Plan Assessment/Plan Additional Assessment/Plan 1. Sepsis. 2. Acute kidney injury secondary to acute tubular necrosis from sepsis. 3. Acute hyperkalemia with metabolic acidosis likely secondary to acute kidney injury. 4. Small bowel obstructions status post exploratory laparotomy and abdominal washout 5. History of recent laparoscopic appendectomy. 6. History of hypertension 7. History of chronic obstructive pulmonary disease. 8. History of hypothyroidism. PLAN: BUN/Cr imrpoving, U/o 1.6 L Yesterday K stable will follow up Off Bicarbonate drip since Yesterday, continue Current IVF will follow up Consultation Date/Type/Reason Admit Date/Time Sep 19, 2016 at 22:10 Initial Consult Date Sep Type of Consultation: NEPHROLOGY Reason for Consultation Acute kidney injury, Hyperkalemia Referring Provider: YAMILE LARA MD 24 HR Interval Summary Free Text/Dictation pt remained stable, BUN/Cr improving, U/o 1.6 liter, BP stable Exam/Review of Systems Vital Signs Vitals Vital Signs Date Time Temp Pulse Resp B/P Pulse Ox O2 Delivery O2 Flow Rate FiO2 09/24/16 17:00 83 13 134/72 97 Nasal Cannula 3.0 09/24/16 16:00 98.2 09/22/16 05:33 31 Intake and Output 09/23/16 09/23/16 09/24/16 15:00 23:00 07:00 Intake Total 660 ml 700 ml 650 ml Output Total 755 ml 560 ml 375 ml Balance -95 ml 140 ml 275 ml Exam GENERAL: Awake, alert, in moderate distress. HEENT: Normal. Oropharynx clear. NG tube in place. LUNGS: Decreased breath sounds at both lung bases with minimal expiratory wheezing present. HEART: S1, S2, tachycardia, no murmur. ABDOMEN: Soft. dressing present EXTREMITIES: no edema, + jang catheter in place NEUROLOGICAL: Nonfocal, intact. PSYCHIATRIC: Appropriate affect and mood. Results Result Diagram: 09/24/160 09/24/16439 Results 24 hrs Laboratory Tests Test 09/24/16 04:40 09/24/16 06:31 Activated Partial Thromboplast Time 33.3 Anion Gap 12 Band Neutrophils % 20.0 H Basophils # Basophils % Blood Morphology Comment Blood Urea Nitrogen 20 Calcium Level 7.2 L Carbon Dioxide Level 26 Chloride Level 101 Creatinine 1.41 H Differential Comment MANUAL DIFF Eosinophils # Eosinophils % Glucose Level 334 #H Hematocrit 25.0 L Hemoglobin 8.3 L INR International Normalized Ratio 1.32 Lymphocytes # 1.4 Lymphocytes % 7.0 L Magnesium Level 1.7 Mean Corpuscular Hemoglobin 29.0 Mean Corpuscular Hemoglobin Concent 33.2 Mean Corpuscular Volume 87.3 Mean Platelet Volume 8.1 Monocytes # 0.8 Monocytes % 4.0 Neutrophils # 14.1 H Neutrophils % 69.0 Nucleated Red Blood Cells # Nucleated Red Blood Cells % Phosphorus Level 3.1 Platelet Count 224 Potassium Level 4.7 Prothrombin Time 16.5 H Prothrombin Time Ratio 1.3 Red Blood Count 2.86 L Red Cell Distribution Width 15.4 H Sodium Level 134 L White Blood Count 20.4 H Bedside Glucose 100 Medications Medications Current Medications Salmeterol Xinafoate/ Fluticasone (Advair 250/50 Diskus) 1 inh BID INH Last administered on 09/24/16 08:02; Admin Dose 1 INH; Start 09/20/16 at 09:00 Tiotropium [place] (Spiriva) 1 inh DAILY INH Last administered on 09/24/16 08: 02; Admin Dose 1 INH; Start 09/20/16 at 09:00 Dorzolamide/ Timolol (Cosopt) 1 drop BID LEFT EYE Last administered on 08:02; Admin Dose 1 DROP; Start 09/20/16 at 13:30 Latanoprost (Xalatan) 1 drop DAILY LEFT EYE Last administered on 09/24/16 08: 02; Admin Dose 1 DROP; Start 09/20/16 at 13:30 Ondansetron HCl (Zofran Inj) 4 mg Q6H PRN IV NAUSEA AND/OR VOMITING Last administered on 09/23/16 07:59; Admin Dose 4 MG; Start 09/20/16 at 20:30 Pantoprazole (Protonix Iv) 40 mg DAILY@06 IV Last administered on 09/24/16 05: 49; Admin Dose 40 MG; Start 09/21/16 at 06:00 Morphine Sulfate (morphine) 1 mg Q2H PRN IV PAIN Last administered on 06:56; Admin Dose 1 MG; Start 09/21/16 at 12:30 IV Flush (NS 10 ml) 10 ml PRN PRN IV IV PROTOCOL; Start 09/21/16 at 17:30 Acetaminophen (Tylenol Liquid) 650 mg Q6H PRN NGT PAIN AND OR ELEVATED TEMP Last administered on 09/22/16 09:09; Admin Dose 650 MG; Start 09/22/16 at 00:20 Enoxaparin Sodium 30 mg 30 mg DAILY SC Last administered on 09/24/16 08:14; Admin Dose 30 MG; Start 09/23/16 at 09:00 Piperacillin Sod/ Tazobactam Sod 50 ml @ 200 mls/hr Q6 IVPB Last administered on 09/24/16 17:24; Admin Dose 200 MLS/HR; Start 09/22/16 at 12:00 Fluconazole/ Sodium Chloride (Diflucan 100 Mg/ NS (Pmx)) 50 ml @ 50 mls/hr Q24H IVPB Last administered on 09/24/16 15:54; Admin Dose 50 MLS/HR; Start at 16:00 Hydromorphone HCl (Dilaudid) 0.25 mg Q2H PRN IV MODERATE PAIN LEVEL 4-6 Last administered on 09/22/16 22:03; Admin Dose 0.25 MG; Start 09/22/16 at 15:00 Hydromorphone HCl 0.5 mg 0.5 mg Q2H PRN IV PAIN LEVEL 7-10 Last administered on 09/24/16 15:58; Admin Dose 0.5 MG; Start 09/22/16 at 15:00 Potassium Chloride/Dextrose (D5W + KCl 20 Meq) 1,000 ml @ 75 mls/hr [id number] IV Last administered on 09/24/16 14:20; Admin Dose 75 MLS/HR; Start 09/23/16 at 10:30 MADISYN MANUEL MD Sep 24, 2016 18:02
[2016-09-24] MEDS: ZOLPIDEM 5 MG TAB PO PRN (21:19)
[2016-09-25] VITALS (15 sets, daily range): BP systolic 111–152; BP diastolic 58–109; PULSE 77–85; RESP 10–18
[2016-09-25] MEDS: PIPER-TAZO 2.25 GM (PMX) 50 ML IVPB SCH ×4 (00:07→18:03)
[2016-09-25] MEDS: HYDROmorphONE 1 MG/ML SYG IV PRN ×5 (02:31→21:45)
[2016-09-25] MEDS: D5W + KCL 20 MEQ 1,000 ML IV SCH (02:34)
[2016-09-25 05:52] LABS: POTASSIUM 3.6 mmol/L (3.5-5.1)
[2016-09-25 05:55] LABS: CREATININE 1.37 mg/dl (0.44-1.00)
[2016-09-25 05:56] LABS: CALCIUM 7.7 mg/dl (8.4-10.2)
[2016-09-25] MEDS: PANTOPRAZOLE 40 MG INJ IV SCH (06:06)
[2016-09-25 08:11] LABS: BASOPHILS % 0.2 % (0.0-2.0); EOSINOPHILS # 0.2 10^3/ul (0.0-0.5); EOSINOPHILS % 1.3 % (0.0-7.0); HEMATOCRIT 25.9 % (37.0-47.0); HEMOGLOBIN 8.6 g/dl (12.0-16.0); LYMPHOCYTES # 1.1 10^3/ul (0.8-2.9); LYMPHOCYTES % 6.8 % (15.0-51.0); MEAN CORPUSCULAR HEMOGLOBIN 28.9 pg (29.0-33.0); MEAN CORPUSCULAR HGB CONC 33.2 g/dl (32.0-37.0); MEAN CORPUSCULAR VOLUME 87.1 fl (82.0-101.0); MEAN PLATELET VOLUME 7.6 fl (7.4-10.4); MONOCYTE # 1.1 10^3/ul (0.3-0.9); MONOCYTES % 7.1 % (0.0-11.0); NEUTROPHIL # 13.5 10^3/ul (1.6-7.5); NEUTROPHILS % 84.6 % (39.0-77.0); PLATELET COUNT 211 10^3/UL (140-440); RED BLOOD COUNT 2.97 10^6/ul (4.20-5.40); RED CELL DISTRIBUTION WIDTH 15.4 % (11.5-14.5); UNCORRECTED WBC 15.9 10^3/ul (4.8-10.8); WHITE BLOOD COUNT 15.9 10^3/ul (4.8-10.8)
--- NOTE | 2016-09-25 08:18 | CONS ---
Date/Time of Note Date/Time of Note DATE: 09/25/16 TIME: 08:14 Assessment/Plan Assessment/Plan Additional Assessment/Plan Assessment recommendations; 1. Patient admitted with small bowel obstruction status post laparotomy. With persistent ileus. 2. Mild renal insufficiency. 3. COPD. 4. Vascular congestion as seen on chest x-ray earlier with significant radiological improvement as seen on yesterday's chest x-ray. 5. Continue current treatment. Start TPN. She can be transferred to the surgical unit. Consultation Date/Type/Reason Admit Date/Time Sep 19, 2016 at 22:10 Type of Consultation: Pulmonary/critical care Referring Provider: YAMILE LARA MD 24 HR Interval Summary Free Text/Dictation Patient condition is stable. Still complains of abdominal pain. Patient still has not had a bowel movement. Denies any shortness of breath. Chest pain, wheezing, production, fever chills. General examination; elderly lady, currently in no distress awake and alert. Exam/Review of Systems Vital Signs Vitals Vital Signs Date Time Temp Pulse Resp B/P Pulse Ox O2 Delivery O2 Flow Rate FiO2 09/25/16 07:00 81 11 133/65 98 Nasal Cannula 2.0 09/25/16 04:00 98.1 09/22/16 05:33 31 Intake and Output 09/24/16 09/24/16 09/25/16 15:00 23:00 07:00 Intake Total 700 ml 700 ml 775 ml Output Total 345 ml 480 ml 505 ml Balance 355 ml 220 ml 270 ml Exam H EENT examination; supple neck, no JVD. No lymphadenopathy. Pharynx is clear. No neck masses. Chest examination; clear to auscultation bilaterally. S1-S2 audible, no murmurs. Regular rhythm. Abdomen examination; there is a midline dressing in place, there is a STEPHANIE drain in place. Bowel sounds are absent. Abdomen is diffusely mildly tender. Bowel sounds are absent. Extremity examination; no peripheral edema. 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 Results Result Diagram: 09/24/16 0440 09/25/160 Results 24 hrs Laboratory Tests Test 09/25/16 04:40 Anion Gap 10 Blood Urea Nitrogen 19 Calcium Level 7.7 L Carbon Dioxide Level 30 Chloride Level 102 Creatinine 1.37 H Glucose Level 96 # Magnesium Level 1.6 L Potassium Level 3.6 Sodium Level 138 Medications Medications Current Medications Salmeterol Xinafoate/ Fluticasone (Advair 250/50 Diskus) 1 inh BID INH Last administered on 09/24/16 21:18; Admin Dose 1 INH; Start 09/20/16 at 09:00 Tiotropium [place] (Spiriva) 1 inh DAILY INH Last administered on 09/24/16 08: 02; Admin Dose 1 INH; Start 09/20/16 at 09:00 Dorzolamide/ Timolol (Cosopt) 1 drop BID LEFT EYE Last administered on 21:18; Admin Dose 1 DROP; Start 09/20/16 at 13:30 Latanoprost (Xalatan) 1 drop DAILY LEFT EYE Last administered on 09/24/16 08: 02; Admin Dose 1 DROP; Start 09/20/16 at 13:30 Ondansetron HCl (Zofran Inj) 4 mg Q6H PRN IV NAUSEA AND/OR VOMITING Last administered on 09/23/16 07:59; Admin Dose 4 MG; Start 09/20/16 at 20:30 Pantoprazole (Protonix Iv) 40 mg DAILY@06 IV Last administered on 09/25/16 06: 06; Admin Dose 40 MG; Start 09/21/16 at 06:00 Morphine Sulfate (morphine) 1 mg Q2H PRN IV PAIN Last administered on 06:56; Admin Dose 1 MG; Start 09/21/16 at 12:30 IV Flush (NS 10 ml) 10 ml PRN PRN IV IV PROTOCOL; Start 09/21/16 at 17:30 Acetaminophen (Tylenol Liquid) 650 mg Q6H PRN NGT PAIN AND OR ELEVATED TEMP Last administered on 09/22/16 09:09; Admin Dose 650 MG; Start 09/22/16 at 00:20 Enoxaparin Sodium 30 mg 30 mg DAILY SC Last administered on 09/24/16 08:14; Admin Dose 30 MG; Start 09/23/16 at 09:00 Piperacillin Sod/ Tazobactam Sod 50 ml @ 200 mls/hr Q6 IVPB Last administered on 09/25/16 06:06; Admin Dose 200 MLS/HR; Start 09/22/16 at 12:00 Fluconazole/ Sodium Chloride (Diflucan 100 Mg/ NS (Pmx)) 50 ml @ 50 mls/hr Q24H IVPB Last administered on 09/24/16 15:54; Admin Dose 50 MLS/HR; Start at 16:00 Hydromorphone HCl (Dilaudid) 0.25 mg Q2H PRN IV MODERATE PAIN LEVEL 4-6 Last administered on 09/22/16 22:03; Admin Dose 0.25 MG; Start 09/22/16 at 15:00 Hydromorphone HCl 0.5 mg 0.5 mg Q2H PRN IV PAIN LEVEL 7-10 Last administered on 09/25/16 06:39; Admin Dose 0.5 MG; Start 09/22/16 at 15:00 Potassium Chloride/Dextrose 1,000 ml @ 75 mls/hr [id number] IV Last administered on 09/25/16 02:34; Admin Dose 75 MLS/HR; Start 09/23/16 at 10:30 Magnesium Sulfate (Magnesium Sulfate 2 Gm/50 ml) 50 ml @ 25 mls/hr ONCE ONCE IVPB ; Start 09/25/16 at 08:30; Stop 09/25/16 at 10:29 NATALY PAGE Sep 25, 2016 08:18
[2016-09-25 08:20] LABS: CONDITION 1; LH ANALYZER COMMENTS 1
[2016-09-25] MEDS ORDERED: MAGNESIUM SULFATE 2 GM/50 ML 50 ML IVPB ONE (08:30)
[2016-09-25] MEDS: TIOTROPIUM 18 MCG CAPSULE INHA DEV INH SCH (09:00)
--- NOTE | 2016-09-25 10:15 | PN ---
Date/Time of Note Date/Time of Note DATE: 09/25/16 TIME: 10:12 Assessment/Plan VTE Prophylaxis VTE Prophylaxis Intervention: SCD's Lines/Catheters IV C[facility]ter Type (from [facility]): PICC Line Central line still needed: Yes Urinary Cath still in place: Yes Reason Cath still needed: other (indicate) Assessment/Plan Chief Complaint/Hosp Course Assessment/Plan 1. Small bowel obstruction s/p Recent Laproscopic Appendectomy Status post small bowel resection x2. Continue postsurgical care, pain management and IV antibiotics Diet as per general surgery recommendations 2. Sepsis Likely secondary to intra-abdominal abscess and postoperatively infectious disease doctor has been consulted, continue Zosyn and Flagyl Follow-up blood culture, continue aggressive IV fluids 3. Hyperkalemia Resolved status post IV fluid, nephrology has been consulted, follow-up electrolytes in a.m. 4 . Abdominal abscess. Status post drainage by interventional radiologist and Diagnostic laparoscopy, Exploratory laparotomy and abdominal washout. Continue aggressive IV antibiotics 3. COPD 4. History of hypertension At this time patient is hypotensive, we will hold all blood pressure medications 5. Hyperlipidemia 6. Hypothyroidism We will continue monitor patient closely for recommendation management treatment as clinical course Transfer to [facility] if cleared by general surgery Problems: Subjective 24 Hr Interval Summary Free Text/Dictation Patient continues to complain of having abdominal discomfort No nausea vomiting diarrhea Tolerating p.o. intake No bowel movement Exam/Review of Systems Vital Signs Vitals Vital Signs Date Time Temp Pulse Resp B/P Pulse Ox O2 Delivery O2 Flow Rate FiO2 09/25/16 08:15 85 13 84 09/25/16 08:00 127/66 Nasal Cannula 2.0 09/25/16 04:00 98.1 09/22/16 05:33 31 Intake and Output 09/24/16 09/24/16 09/25/16 15:00 23:00 07:00 Intake Total 700 ml 700 ml 775 ml Output Total 345 ml 480 ml 505 ml Balance 355 ml 220 ml 270 ml Exam General: The patient is well-developed, Not in acute distress. HEENT: Atraumatic, normocephalic. The pupils are equal and round . Neck: Supple with full range of motion. Chest: Normal expansion of the thorax during inspiration Lungs: Clear to auscultation bilaterally Heart: Normal S1-S2, Regular rhythm and rate. Abdomen: Soft , minimally tender, minimally distended , bowel sounds hypoactive although they are present. Surgical site is dry and clean Extremities: Normal to inspection, no edema no cyanosis Neurologic: Normal mental status,The patient is awake, alert and oriented . Results Result Diagram: 09/25/16 0755 09/25/16 0440 Results 24 hrs Laboratory Tests Test 09/25/16 04:40 09/25/16 07:55 Anion Gap 10 Blood Urea Nitrogen 19 Calcium Level 7.7 L Carbon Dioxide Level 30 Chloride Level 102 Creatinine 1.37 H Glucose Level 96 # Magnesium Level 1.6 L Potassium Level 3.6 Sodium Level 138 Basophils # 0.0 Basophils % 0.2 Blood Morphology Comment Eosinophils # 0.2 Eosinophils % 1.3 Hematocrit 25.9 L Hemoglobin 8.6 L Lymphocytes # 1.1 Lymphocytes % 6.8 L Mean Corpuscular Hemoglobin 28.9 L Mean Corpuscular Hemoglobin Concent 33.2 Mean Corpuscular Volume 87.1 Mean Platelet Volume 7.6 Monocytes # 1.1 H Monocytes % 7.1 Neutrophils # 13.5 H Neutrophils % 84.6 H Nucleated Red Blood Cells # 0.0 Nucleated Red Blood Cells % 0.0 Platelet Count 211 Red Blood Count 2.97 L Red Cell Distribution Width 15.4 H White Blood Count 15.9 #H Medications Medications Current Medications Salmeterol Xinafoate/ Fluticasone (Advair 250/50 Diskus) 1 inh BID INH Last administered on 09/24/16 21:18; Admin Dose 1 INH; Start 09/20/16 at 09:00 Tiotropium [place] (Spiriva) 1 inh DAILY INH Last administered on 09/24/16 08: 02; Admin Dose 1 INH; Start 09/20/16 at 09:00 Dorzolamide/ Timolol (Cosopt) 1 drop BID LEFT EYE Last administered on 21:18; Admin Dose 1 DROP; Start 09/20/16 at 13:30 Latanoprost (Xalatan) 1 drop DAILY LEFT EYE Last administered on 09/24/16 08: 02; Admin Dose 1 DROP; Start 09/20/16 at 13:30 Ondansetron HCl (Zofran Inj) 4 mg Q6H PRN IV NAUSEA AND/OR VOMITING Last administered on 09/23/16 07:59; Admin Dose 4 MG; Start 09/20/16 at 20:30 Pantoprazole (Protonix Iv) 40 mg DAILY@06 IV Last administered on 09/25/16 06: 06; Admin Dose 40 MG; Start 09/21/16 at 06:00 Morphine Sulfate (morphine) 1 mg Q2H PRN IV PAIN Last administered on 06:56; Admin Dose 1 MG; Start 09/21/16 at 12:30 IV Flush (NS 10 ml) 10 ml PRN PRN IV IV PROTOCOL; Start 09/21/16 at 17:30 Acetaminophen (Tylenol Liquid) 650 mg Q6H PRN NGT PAIN AND OR ELEVATED TEMP Last administered on 09/22/16 09:09; Admin Dose 650 MG; Start 09/22/16 at 00:20 Enoxaparin Sodium 30 mg 30 mg DAILY SC Last administered on 09/24/16 08:14; Admin Dose 30 MG; Start 09/23/16 at 09:00 Piperacillin Sod/ Tazobactam Sod 50 ml @ 200 mls/hr Q6 IVPB Last administered on 09/25/16 06:06; Admin Dose 200 MLS/HR; Start 09/22/16 at 12:00 Fluconazole/ Sodium Chloride (Diflucan 100 Mg/ NS (Pmx)) 50 ml @ 50 mls/hr Q24H IVPB Last administered on 09/24/16 15:54; Admin Dose 50 MLS/HR; Start at 16:00 Hydromorphone HCl (Dilaudid) 0.25 mg Q2H PRN IV MODERATE PAIN LEVEL 4-6 Last administered on 09/22/16 22:03; Admin Dose 0.25 MG; Start 09/22/16 at 15:00 Hydromorphone HCl 0.5 mg 0.5 mg Q2H PRN IV PAIN LEVEL 7-10 Last administered on 09/25/16 06:39; Admin Dose 0.5 MG; Start 09/22/16 at 15:00 Potassium Chloride/Dextrose 1,000 ml @ 75 mls/hr [id number] IV Last administered on 09/25/16 02:34; Admin Dose 75 MLS/HR; Start 09/23/16 at 10:30 Magnesium Sulfate (Magnesium Sulfate 2 Gm/50 ml) 50 ml @ 25 mls/hr ONCE ONCE IVPB ; Start 09/25/16 at 08:30; Stop 09/25/16 at 10:29 YAMILE LARA MD Sep 25, 2016 10:15
[2016-09-25] MEDS: ENOXAPARIN 30 MG/0.3 ML SYG SC SCH (10:29)
[2016-09-25] MEDS: LATANOPROST 0.005% 2.5 ML OPH LEFT EYE SCH (10:35)
[2016-09-25] MEDS: SALMETEROL/FLUTICASONE 250/50 INHA INH SCH ×2 (10:35→21:46)
[2016-09-25] MEDS: DORZOLAMIDE/TIMOLOL 10 ML OPH LEFT EYE SCH ×2 (10:36→21:46)
--- NOTE | 2016-09-25 10:53 | PN ---
DATE: 09/25/2016 SUBJECTIVE: Ms. Aguila is now postoperative day #5 from a small-bowel obstruction. The patient i s without complaints. She denies bowel movement or flatus. OBJECTIVE: VITAL SIGNS: She is afebrile. Vital signs stable. Her urine output has been over a liter with voi ding x3. ABDOMEN: Soft, less distended. Her wound is clean, dry and intact. LABORATORY DATA: Today reveal sodium 138, potassium 3.6, chloride 102, CO2 30, BUN and creatinine o f 10 and 1.37 and glucose of 96. Her mag is 1.6. Her CBC is still pending. ASSESSMENT AND PLAN: Ms. Aguila is an 86-year-old female status post small-bowel resection. 1. Ileus. We will obtain abdominal series in a.m. 2. ATN, resolving. If creatinine is within normal limits tomorrow will start Toradol. 3. If continues with ileus, possibly start TPN tomorrow as well. 4. Continue antibiotics. Await WBC for today. Dictated By: TRISTAN MYLES/UV Conf#: [id number] DID#: [id number]
[2016-09-25] MEDS: TPN 1,000 ML IV SCH (15:53)
[2016-09-25] MEDS: FAT EMULSION 20% 500 ML IV SCH (15:53)
--- NOTE | 2016-09-25 15:54 | CONS ---
Date/Time of Note Date/Time of Note DATE: 09/25/16 TIME: 15:52 Assessment/Plan Assessment/Plan Additional Assessment/Plan Small bowel obstruction with abdominal abscess status post repeat surgery Shock, possibly sepsis versus hypovolemic, resolved Acute blood loss anemia Diastolic congestive heart failure Acute appendicitis status post surgery Preserved ejection fraction Hypertension Acute kidney injury. -Blood pressure trend has improved. Now with episodes of hypertension. Patient remains n.p.o. Blood pressure remains elevated, would start IV antihypertensive. No need for diuretics at the current time. Consultation Date/Type/Reason Admit Date/Time Sep 19, 2016 at 22:10 Type of Consultation: cv Referring Provider: YAMILE LARA MD 24 HR Interval Summary Free Text/Dictation Denies shortness of breath, chest pain or palpitations Exam/Review of Systems Vital Signs Vitals Vital Signs Date Time Temp Pulse Resp B/P Pulse Ox O2 Delivery O2 Flow Rate FiO2 09/25/16 12:00 81 09/25/16 12:00 Nasal Cannula 2.0 09/25/16 11:00 11 152/96 94 09/25/16 09:00 97.7 09/22/16 05:33 31 Intake and Output 09/24/16 09/24/16 09/25/16 15:00 23:00 07:00 Intake Total 700 ml 700 ml 775 ml Output Total 345 ml 480 ml 505 ml Balance 355 ml 220 ml 270 ml Exam No apparent distress Constitutional: alert, oriented Head: normocephalic Neck: supple Respiratory: other (Coarse breath sounds bilaterally, no wheezing) Cardiovascular: other (S1-S2 heard), regular rate and rhythm Gastrointestinal: bowel sounds, other (No guarding), soft, tender (Diffuse discomfort with palpation) Extremities: edema Results Result Diagram: 09/25/16 0755 09/25/16 0440 Results 24 hrs Laboratory Tests Test 09/25/16 04:40 09/25/16 07:55 Anion Gap 10 Blood Urea Nitrogen 19 Calcium Level 7.7 L Carbon Dioxide Level 30 Chloride Level 102 Creatinine 1.37 H Glucose Level 96 # Magnesium Level 1.6 L Potassium Level 3.6 Sodium Level 138 Basophils # 0.0 Basophils % 0.2 Blood Morphology Comment Eosinophils # 0.2 Eosinophils % 1.3 Hematocrit 25.9 L Hemoglobin 8.6 L Lymphocytes # 1.1 Lymphocytes % 6.8 L Mean Corpuscular Hemoglobin 28.9 L Mean Corpuscular Hemoglobin Concent 33.2 Mean Corpuscular Volume 87.1 Mean Platelet Volume 7.6 Monocytes # 1.1 H Monocytes % 7.1 Neutrophils # 13.5 H Neutrophils % 84.6 H Nucleated Red Blood Cells # 0.0 Nucleated Red Blood Cells % 0.0 Platelet Count 211 Red Blood Count 2.97 L Red Cell Distribution Width 15.4 H White Blood Count 15.9 #H Medications Medications Current Medications Salmeterol Xinafoate/ Fluticasone (Advair 250/50 Diskus) 1 inh BID INH Last administered on 09/25/16 10:35; Admin Dose 1 INH; Start 09/20/16 at 09:00 Tiotropium [place] (Spiriva) 1 inh DAILY INH Last administered on 09/24/16 08: 02; Admin Dose 1 INH; Start 09/20/16 at 09:00 Dorzolamide/ Timolol (Cosopt) 1 drop BID LEFT EYE Last administered on 10:36; Admin Dose 1 DROP; Start 09/20/16 at 13:30 Latanoprost (Xalatan) 1 drop DAILY LEFT EYE Last administered on 09/25/16 10: 35; Admin Dose 1 DROP; Start 09/20/16 at 13:30 Ondansetron HCl (Zofran Inj) 4 mg Q6H PRN IV NAUSEA AND/OR VOMITING Last administered on 09/23/16 07:59; Admin Dose 4 MG; Start 09/20/16 at 20:30 Pantoprazole (Protonix Iv) 40 mg DAILY@06 IV Last administered on 09/25/16 06: 06; Admin Dose 40 MG; Start 09/21/16 at 06:00 IV Flush (NS 10 ml) 10 ml PRN PRN IV IV PROTOCOL; Start 09/21/16 at 17:30 Acetaminophen (Tylenol Liquid) 650 mg Q6H PRN NGT PAIN AND OR ELEVATED TEMP Last administered on 09/22/16 09:09; Admin Dose 650 MG; Start 09/22/16 at 00:20 Enoxaparin Sodium 30 mg 30 mg DAILY SC Last administered on 09/25/16 10:29; Admin Dose 30 MG; Start 09/23/16 at 09:00 Piperacillin Sod/ Tazobactam Sod 50 ml @ 200 mls/hr Q6 IVPB Last administered on 09/25/16 13:09; Admin Dose 200 MLS/HR; Start 09/22/16 at 12:00 Fluconazole/ Sodium Chloride (Diflucan 100 Mg/ NS (Pmx)) 50 ml @ 50 mls/hr Q24H IVPB Last administered on 09/24/16 15:54; Admin Dose 50 MLS/HR; Start at 16:00 Hydromorphone HCl (Dilaudid) 0.25 mg Q2H PRN IV MODERATE PAIN LEVEL 4-6 Last administered on 09/25/16 10:54; Admin Dose 0.25 MG; Start 09/22/16 at 15:00 Hydromorphone HCl 0.5 mg 0.5 mg Q2H PRN IV PAIN LEVEL 7-10 Last administered on 09/25/16 06:39; Admin Dose 0.5 MG; Start 09/22/16 at 15:00 Total Parenteral Nutrition 1,000 ml @ 75 mls/hr [id number] IV ; Start 09/25/16 at 15:00 Fat Emulsion Intravenous (Liposyn Ii 20%) 500 ml @ 20.833 mls/ hr Q24H IV ; Start 09/25/16 at 15:00 Taco Castillo DO Sep 25, 2016 15:54
--- NOTE | 2016-09-25 16:30 | PN ---
DATE: 09/25/2016 INFECTIOUS DISEASE PROGRESS NOTE SUBJECTIVE: No acute changes. The patient is alert, feels good, looks comfortable, no fevers overn ight. VITAL SIGNS: Stable. WBC 15.9, H and H 8.6 and 25.9, platelets 211, neutrophils 84.6, no bands. BUN 19, creatinine 1.37. ANTIMICROBIALS: 1. Fluconazole. 2. Zosyn. INDWELLINGS: STEPHANIE, Santos catheter and PICC line placed on 09/21/2016. PHYSICAL EXAMINATION: GENERAL: Fragile, elderly woman who is alert, in no distress. HEENT: Head atraumatic, normocephalic. Sclerae anicteric. Buccal mucosa pink. NECK: Supple, trachea midline. CHEST: Rise symmetrical. Breath sounds clear. HEART: S1, S2. ABDOMEN: Soft. Bowel tones present. EXTREMITIES: Without cyanosis. ASSESSMENT: 1. Resolving sepsis status post shock. 2. Small-bowel obstruction, status post exploratory laparotomy, abdominal washout, small bowel rese ction with abscess drainage on 09/20/2016. 3. Reactive leukocytosis, improving. 4. Chronic obstructive pulmonary disease. 5. Acute on chronic kidney disease. PLAN: The patient remains stable, overall improving. Pending transfer to med/surg floor. Continue on current antibiotics. Follow surgical recommendations. Dictated By: YASMANY BECERRA WEAVING PROFESSOR for THOMAS WEBSTER/NTS Conf#: [id number] DID#: [id number]
[2016-09-25] MEDS: FLUCONAZOLE 100 MG/NS (PMX) 50 ML IVPB SCH (16:53)
[2016-09-25] MEDS: ZOLPIDEM 5 MG TAB PO PRN (21:59)
--- NOTE | 2016-09-25 22:20 | CONS ---
Date/Time of Note Date/Time of Note DATE: 09/25/16 TIME: 22:18 Assessment/Plan Assessment/Plan Additional Assessment/Plan 1. Sepsis. 2. Acute kidney injury secondary to acute tubular necrosis from sepsis. 3. Acute hyperkalemia with metabolic acidosis likely secondary to acute kidney injury. 4. Small bowel obstructions status post exploratory laparotomy and abdominal washout 5. History of recent laparoscopic appendectomy. 6. History of hypertension 7. History of chronic obstructive pulmonary disease. 8. History of hypothyroidism. PLAN: BUN/Cr imrpoving to 1.37 , U/o good K stable will follow up Consultation Date/Type/Reason Admit Date/Time Sep 19, 2016 at 22:10 Initial Consult Date Sep Type of Consultation: NEPHROLOGY Reason for Consultation TONY, Hyperkalemia Referring Provider: YAMILE LARA MD 24 HR Interval Summary Free Text/Dictation pt transferred to med/surge floor, BP stable, Exam/Review of Systems Vital Signs Vitals Vital Signs Date Time Temp Pulse Resp B/P Pulse Ox O2 Delivery O2 Flow Rate FiO2 09/25/16 19:45 88 5.0 09/25/16 19:00 97.8 84 18 129/64 09/25/16 12:10 Nasal Cannula 09/22/16 05:33 31 Intake and Output 09/24/16 09/24/16 09/25/16 15:00 23:00 07:00 Intake Total 700 ml 700 ml 775 ml Output Total 345 ml 480 ml 505 ml Balance 355 ml 220 ml 270 ml Exam GENERAL: Awake, alert, in moderate distress. HEENT: Normal. Oropharynx clear. NG tube in place. LUNGS: Decreased breath sounds at both lung bases with minimal expiratory wheezing present. HEART: S1, S2, tachycardia, no murmur. ABDOMEN: Soft. dressing present EXTREMITIES: no edema, + jang catheter in place NEUROLOGICAL: Nonfocal, intact. PSYCHIATRIC: Appropriate affect and mood. Results Result Diagram: 09/25/16 0755 09/25/16 0440 Results 24 hrs Laboratory Tests Test 09/25/16 04:40 09/25/16 07:55 Anion Gap 10 Blood Urea Nitrogen 19 Calcium Level 7.7 L Carbon Dioxide Level 30 Chloride Level 102 Creatinine 1.37 H Glucose Level 96 # Magnesium Level 1.6 L Potassium Level 3.6 Sodium Level 138 Basophils # 0.0 Basophils % 0.2 Blood Morphology Comment Eosinophils # 0.2 Eosinophils % 1.3 Hematocrit 25.9 L Hemoglobin 8.6 L Lymphocytes # 1.1 Lymphocytes % 6.8 L Mean Corpuscular Hemoglobin 28.9 L Mean Corpuscular Hemoglobin Concent 33.2 Mean Corpuscular Volume 87.1 Mean Platelet Volume 7.6 Monocytes # 1.1 H Monocytes % 7.1 Neutrophils # 13.5 H Neutrophils % 84.6 H Nucleated Red Blood Cells # 0.0 Nucleated Red Blood Cells % 0.0 Platelet Count 211 Red Blood Count 2.97 L Red Cell Distribution Width 15.4 H White Blood Count 15.9 #H Medications Medications Current Medications Salmeterol Xinafoate/ Fluticasone (Advair 250/50 Diskus) 1 inh BID INH Last administered on 09/25/16 21:46; Admin Dose 1 INH; Start 09/20/16 at 09:00 Tiotropium [place] (Spiriva) 1 inh DAILY INH Last administered on 09/24/16 08: 02; Admin Dose 1 INH; Start 09/20/16 at 09:00 Dorzolamide/ Timolol (Cosopt) 1 drop BID LEFT EYE Last administered on 21:46; Admin Dose 1 DROP; Start 09/20/16 at 13:30 Latanoprost (Xalatan) 1 drop DAILY LEFT EYE Last administered on 09/25/16 10: 35; Admin Dose 1 DROP; Start 09/20/16 at 13:30 Ondansetron HCl (Zofran Inj) 4 mg Q6H PRN IV NAUSEA AND/OR VOMITING Last administered on 09/23/16 07:59; Admin Dose 4 MG; Start 09/20/16 at 20:30 Pantoprazole (Protonix Iv) 40 mg DAILY@06 IV Last administered on 09/25/16 06: 06; Admin Dose 40 MG; Start 09/21/16 at 06:00 IV Flush (NS 10 ml) 10 ml PRN PRN IV IV PROTOCOL; Start 09/21/16 at 17:30 Acetaminophen (Tylenol Liquid) 650 mg Q6H PRN NGT PAIN AND OR ELEVATED TEMP Last administered on 09/22/16 09:09; Admin Dose 650 MG; Start 09/22/16 at 00:20 Enoxaparin Sodium 30 mg 30 mg DAILY SC Last administered on 09/25/16 10:29; Admin Dose 30 MG; Start 09/23/16 at 09:00 Piperacillin Sod/ Tazobactam Sod 50 ml @ 200 mls/hr Q6 IVPB Last administered on 09/25/16 18:03; Admin Dose 200 MLS/HR; Start 09/22/16 at 12:00 Fluconazole/ Sodium Chloride (Diflucan 100 Mg/ NS (Pmx)) 50 ml @ 50 mls/hr Q24H IVPB Last administered on 09/25/16 16:53; Admin Dose 50 MLS/HR; Start at 16:00 Hydromorphone HCl (Dilaudid) 0.25 mg Q2H PRN IV MODERATE PAIN LEVEL 4-6 Last administered on 09/25/16 17:53; Admin Dose 0.25 MG; Start 09/22/16 at 15:00 Hydromorphone HCl 0.5 mg 0.5 mg Q2H PRN IV PAIN LEVEL 7-10 Last administered on 09/25/16 21:45; Admin Dose 0.5 MG; Start 09/22/16 at 15:00 Total Parenteral Nutrition 1,000 ml @ 75 mls/hr [id number] IV Last administered on 09/25/16 15:53; Admin Dose 75 MLS/HR; Start 09/25/16 at 15:00 Fat Emulsion Intravenous (Liposyn Ii 20%) 500 ml @ 20.833 mls/ hr Q24H IV Last administered on 09/25/16 15:53; Admin Dose 20.833 MLS/HR; Start 09/25/16 at 15:00 MADISYN MANUEL MD Sep 25, 2016 22:20
[2016-09-26] MEDS: PIPER-TAZO 2.25 GM (PMX) 50 ML IVPB SCH ×5 (00:32→23:30)
[2016-09-26] MEDS: HYDROmorphONE 1 MG/ML SYG IV PRN ×3 (02:35→13:54)
[2016-09-26] MEDS: TPN 1,000 ML IV SCH ×3 (04:20→22:39)
[2016-09-26] MEDS: PANTOPRAZOLE 40 MG INJ IV SCH (05:26)
[2016-09-26 06:04] LABS: EOSINOPHILS # 0.2 10^3/ul (0.0-0.5); EOSINOPHILS % 1.4 % (0.0-7.0); HEMATOCRIT 25.5 % (37.0-47.0); HEMOGLOBIN 8.6 g/dl (12.0-16.0); LYMPHOCYTES # 1.1 10^3/ul (0.8-2.9); LYMPHOCYTES % 6.5 % (15.0-51.0); MEAN CORPUSCULAR HGB CONC 33.6 g/dl (32.0-37.0); MEAN CORPUSCULAR VOLUME 86.4 fl (82.0-101.0); MEAN PLATELET VOLUME 7.8 fl (7.4-10.4); MONOCYTE # 1.1 10^3/ul (0.3-0.9); MONOCYTES % 6.7 % (0.0-11.0); NEUTROPHIL # 14.2 10^3/ul (1.6-7.5); NEUTROPHILS % 85.4 % (39.0-77.0); PLATELET COUNT 202 10^3/UL (140-440); RED BLOOD COUNT 2.95 10^6/ul (4.20-5.40); RED CELL DISTRIBUTION WIDTH 15.2 % (11.5-14.5); UNCORRECTED WBC 16.6 10^3/ul (4.8-10.8); WHITE BLOOD COUNT 16.6 10^3/ul (4.8-10.8)
[2016-09-26 06:13] LABS: POTASSIUM 3.3 mmol/L (3.5-5.1)
[2016-09-26 06:15] LABS: CONDITION 1; CREATININE 1.23 mg/dl (0.44-1.00); LH ANALYZER COMMENTS 1
[2016-09-26 06:16] LABS: CALCIUM 7.8 mg/dl (8.4-10.2)
[2016-09-26 07:34] VITALS: BP 146/74; RESP 18
[2016-09-26] MEDS: SALMETEROL/FLUTICASONE 250/50 INHA INH SCH ×2 (09:05→22:11)
[2016-09-26] MEDS: DORZOLAMIDE/TIMOLOL 10 ML OPH LEFT EYE SCH ×2 (09:06→22:11)
[2016-09-26] MEDS: LATANOPROST 0.005% 2.5 ML OPH LEFT EYE SCH (09:06)
[2016-09-26] MEDS: ENOXAPARIN 30 MG/0.3 ML SYG SC SCH (09:09)
--- NOTE | 2016-09-26 10:28 | CONS ---
Date/Time of Note Date/Time of Note DATE: 09/26/16 TIME: 10:27 Assessment/Plan Assessment/Plan Additional Assessment/Plan 1. Sepsis. 2. Acute kidney injury secondary to acute tubular necrosis from sepsis. 3. Acute hyperkalemia with metabolic acidosis likely secondary to acute kidney injury.- now resolved to hypokalemia 4. Small bowel obstructions status post exploratory laparotomy and abdominal washout 5. History of recent laparoscopic appendectomy. 6. History of hypertension 7. History of chronic obstructive pulmonary disease. 8. History of hypothyroidism. PLAN: BUN/Cr imrpoving to 1.23 , U/o good K low- [id number] IV x 1 dose now will follow up Consultation Date/Type/Reason Admit Date/Time Sep 19, 2016 at 22:10 Initial Consult Date Sep Type of Consultation: NEPHROLOGY Reason for Consultation Acute kidney injury,hyperkalemia Referring Provider: YAMILE LARA MD 24 HR Interval Summary Free Text/Dictation Cr imrpoving, good urine output, K low Exam/Review of Systems Vital Signs Vitals Vital Signs Date Time Temp Pulse Resp B/P Pulse Ox O2 Delivery O2 Flow Rate FiO2 09/26/16 07:34 97.9 94 18 146/74 96 09/26/16 02:34 6.0 09/25/16 22:00 Nasal Cannula Intake and Output 09/25/16 09/25/16 09/26/16 15:00 23:00 07:00 Intake Total 200 ml 340 ml 980 ml Output Total 0 ml Balance 200 ml 340 ml 980 ml Exam GENERAL: Awake, alert, in moderate distress. HEENT: Normal. Oropharynx clear. NG tube in place. LUNGS: Decreased breath sounds at both lung bases with minimal expiratory wheezing present. HEART: S1, S2, tachycardia, no murmur. ABDOMEN: Soft. dressing present EXTREMITIES: no edema, + jang catheter in place NEUROLOGICAL: Nonfocal, intact. PSYCHIATRIC: Appropriate affect and mood. Results Result Diagram: 09/26/16 0520 09/26/16 0520 Results 24 hrs Laboratory Tests Test 09/26/16 05:20 09/26/16 09:56 Anion Gap 9 Basophils # 0.0 Basophils % 0.0 Blood Morphology Comment Blood Urea Nitrogen 20 Calcium Level 7.8 L Carbon Dioxide Level 28 Chloride Level 103 Creatinine 1.23 H Eosinophils # 0.2 Eosinophils % 1.4 Glucose Level 143 # Hematocrit 25.5 L Hemoglobin 8.6 L Lymphocytes # 1.1 Lymphocytes % 6.5 L Mean Corpuscular Hemoglobin 29.0 Mean Corpuscular Hemoglobin Concent 33.6 Mean Corpuscular Volume 86.4 Mean Platelet Volume 7.8 Monocytes # 1.1 H Monocytes % 6.7 Neutrophils # 14.2 H Neutrophils % 85.4 H Nucleated Red Blood Cells # 0.0 Nucleated Red Blood Cells % 0.0 Platelet Count 202 Potassium Level 3.3 L Red Blood Count 2.95 L Red Cell Distribution Width 15.2 H Sodium Level 137 White Blood Count 16.6 H Lab Scanned Report REFERENCE LAB Medications Medications Current Medications Salmeterol Xinafoate/ Fluticasone (Advair 250/50 Diskus) 1 inh BID INH Last administered on 09/26/16 09:05; Admin Dose 1 INH; Start 09/20/16 at 09:00 Tiotropium [place] (Spiriva) 1 inh DAILY INH Last administered on 09/24/16 08: 02; Admin Dose 1 INH; Start 09/20/16 at 09:00 Dorzolamide/ Timolol (Cosopt) 1 drop BID LEFT EYE Last administered on 09:06; Admin Dose 1 DROP; Start 09/20/16 at 13:30 Latanoprost (Xalatan) 1 drop DAILY LEFT EYE Last administered on 09/26/16 09: 06; Admin Dose 1 DROP; Start 09/20/16 at 13:30 Ondansetron HCl (Zofran Inj) 4 mg Q6H PRN IV NAUSEA AND/OR VOMITING Last administered on 09/23/16 07:59; Admin Dose 4 MG; Start 09/20/16 at 20:30 Pantoprazole (Protonix Iv) 40 mg DAILY@06 IV Last administered on 09/26/16 05: 26; Admin Dose 40 MG; Start 09/21/16 at 06:00 IV Flush (NS 10 ml) 10 ml PRN PRN IV IV PROTOCOL; Start 09/21/16 at 17:30 Acetaminophen (Tylenol Liquid) 650 mg Q6H PRN NGT PAIN AND OR ELEVATED TEMP Last administered on 09/22/16 09:09; Admin Dose 650 MG; Start 09/22/16 at 00:20 Enoxaparin Sodium 30 mg 30 mg DAILY SC Last administered on 09/26/16 09:09; Admin Dose 30 MG; Start 09/23/16 at 09:00 Piperacillin Sod/ Tazobactam Sod 50 ml @ 200 mls/hr Q6 IVPB Last administered on 09/26/16 05:26; Admin Dose 200 MLS/HR; Start 09/22/16 at 12:00 Fluconazole/ Sodium Chloride (Diflucan 100 Mg/ NS (Pmx)) 50 ml @ 50 mls/hr Q24H IVPB Last administered on 09/25/16 16:53; Admin Dose 50 MLS/HR; Start at 16:00 Hydromorphone HCl (Dilaudid) 0.25 mg Q2H PRN IV MODERATE PAIN LEVEL 4-6 Last administered on 09/26/16 02:35; Admin Dose 0.25 MG; Start 09/22/16 at 15:00 Hydromorphone HCl 0.5 mg 0.5 mg Q2H PRN IV PAIN LEVEL 7-10 Last administered on 09/26/16 09:16; Admin Dose 0.5 MG; Start 09/22/16 at 15:00 Total Parenteral Nutrition 1,000 ml @ 75 mls/hr [id number] IV Last administered on 09/26/16 07:46; Admin Dose 75 MLS/HR; Start 09/25/16 at 15:00 Fat Emulsion Intravenous 500 ml @ 20.833 mls/ hr Q24H IV Last administered on 09/25/16 15:53; Admin Dose 20.833 MLS/HR; Start 09/25/16 at 15:00 Potassium Chloride/Sodium Chloride (KCl/NS) 110 ml @ 55 mls/hr ONCE ONCE IVPB ; Start 09/26/16 at 10:30; Stop 09/26/16 at 12:29; Status MADISYN DAWKINS MD Sep 26, 2016 10:28
--- NOTE | 2016-09-26 11:26 | CONS ---
Date/Time of Note Date/Time of Note DATE: 09/26/16 TIME: 11:24 Assessment/Plan Assessment/Plan Additional Assessment/Plan Assessment recommendations; patient admitted with bowel obstruction status post laparotomy. 2. Persistent leukocytosis with ileus. Patient started on TPN. 3. Currently no acute cardiopulmonary issues. Continue current treatment. Patient awaiting CT scan of abdomen. ID lifestyle consultant is following the patient. I am going to sign off, please reconsult if needed. Thanks for the referral. Consultation Date/Type/Reason Admit Date/Time Sep 19, 2016 at 22:10 Type of Consultation: Pulmonary Referring Provider: YAMIEL LARA MD 24 HR Interval Summary Free Text/Dictation Patient condition is stable. She has been transferred out of ICU to the surgical tower. Denies any shortness of breath, wheezing cough chest pain. She complains of abdominal pain without any nausea vomiting. General examination; elderly lady, currently in no distress. Awake and alert. Exam/Review of Systems Vital Signs Vitals Vital Signs Date Time Temp Pulse Resp B/P Pulse Ox O2 Delivery O2 Flow Rate FiO2 09/26/16 07:34 97.9 94 18 146/74 96 09/26/16 02:34 6.0 09/25/16 22:00 Nasal Cannula Intake and Output 09/25/16 09/25/16 09/26/16 15:00 23:00 07:00 Intake Total 200 ml 340 ml 980 ml Output Total 0 ml Balance 200 ml 340 ml 980 ml Exam H EENT examination; supple neck, no JVD. No lymphadenopathy. Midline trachea. Pharynx is clear. Chest examination; clear to auscultation bilaterally. S1-S2 audible, no murmurs. Regular rhythm. Abdomen examination; soft, mildly distended. Mildly tender diffusely. Bowel sounds are absent. Dressing in place. STEPHANIE drain in place. Extremity examination; no peripheral edema. HUMAN RESOURCES ASSISTANT MANAGER examination; no focal deficit. Results Result Diagram: 09/26/16 0520 09/26/16 0520 Results 24 hrs Laboratory Tests Test 09/26/16 05:20 09/26/16 09:56 Anion Gap 9 Basophils # 0.0 Basophils % 0.0 Blood Morphology Comment Blood Urea Nitrogen 20 Calcium Level 7.8 L Carbon Dioxide Level 28 Chloride Level 103 Creatinine 1.23 H Eosinophils # 0.2 Eosinophils % 1.4 Glucose Level 143 # Hematocrit 25.5 L Hemoglobin 8.6 L Lymphocytes # 1.1 Lymphocytes % 6.5 L Mean Corpuscular Hemoglobin 29.0 Mean Corpuscular Hemoglobin Concent 33.6 Mean Corpuscular Volume 86.4 Mean Platelet Volume 7.8 Monocytes # 1.1 H Monocytes % 6.7 Neutrophils # 14.2 H Neutrophils % 85.4 H Nucleated Red Blood Cells # 0.0 Nucleated Red Blood Cells % 0.0 Platelet Count 202 Potassium Level 3.3 L Red Blood Count 2.95 L Red Cell Distribution Width 15.2 H Sodium Level 137 White Blood Count 16.6 H Lab Scanned Report REFERENCE LAB Medications Medications Current Medications Salmeterol Xinafoate/ Fluticasone (Advair 250/50 Diskus) 1 inh BID INH Last administered on 09/26/16 09:05; Admin Dose 1 INH; Start 09/20/16 at 09:00 Tiotropium [place] (Spiriva) 1 inh DAILY INH Last administered on 09/24/16 08: 02; Admin Dose 1 INH; Start 09/20/16 at 09:00 Dorzolamide/ Timolol (Cosopt) 1 drop BID LEFT EYE Last administered on 09:06; Admin Dose 1 DROP; Start 09/20/16 at 13:30 Latanoprost (Xalatan) 1 drop DAILY LEFT EYE Last administered on 09/26/16 09: 06; Admin Dose 1 DROP; Start 09/20/16 at 13:30 Ondansetron HCl (Zofran Inj) 4 mg Q6H PRN IV NAUSEA AND/OR VOMITING Last administered on 09/23/16 07:59; Admin Dose 4 MG; Start 09/20/16 at 20:30 Pantoprazole (Protonix Iv) 40 mg DAILY@06 IV Last administered on 09/26/16 05: 26; Admin Dose 40 MG; Start 09/21/16 at 06:00 IV Flush (NS 10 ml) 10 ml PRN PRN IV IV PROTOCOL; Start 09/21/16 at 17:30 Acetaminophen (Tylenol Liquid) 650 mg Q6H PRN NGT PAIN AND OR ELEVATED TEMP Last administered on 09/22/16 09:09; Admin Dose 650 MG; Start 09/22/16 at 00:20 Enoxaparin Sodium 30 mg 30 mg DAILY SC Last administered on 09/26/16 09:09; Admin Dose 30 MG; Start 09/23/16 at 09:00 Piperacillin Sod/ Tazobactam Sod 50 ml @ 200 mls/hr Q6 IVPB Last administered on 09/26/16 05:26; Admin Dose 200 MLS/HR; Start 09/22/16 at 12:00 Fluconazole/ Sodium Chloride (Diflucan 100 Mg/ NS (Pmx)) 50 ml @ 50 mls/hr Q24H IVPB Last administered on 09/25/16 16:53; Admin Dose 50 MLS/HR; Start at 16:00 Hydromorphone HCl (Dilaudid) 0.25 mg Q2H PRN IV MODERATE PAIN LEVEL 4-6 Last administered on 09/26/16 02:35; Admin Dose 0.25 MG; Start 09/22/16 at 15:00 Hydromorphone HCl 0.5 mg 0.5 mg Q2H PRN IV PAIN LEVEL 7-10 Last administered on 09/26/16 09:16; Admin Dose 0.5 MG; Start 09/22/16 at 15:00 Total Parenteral Nutrition 1,000 ml @ 75 mls/hr [id number] IV Last administered on 09/26/16 07:46; Admin Dose 75 MLS/HR; Start 09/25/16 at 15:00 Fat Emulsion Intravenous 500 ml @ 20.833 mls/ hr Q24H IV Last administered on 09/25/16 15:53; Admin Dose 20.833 MLS/HR; Start 09/25/16 at 15:00 Potassium Chloride/Sodium Chloride (KCl/NS) 110 ml @ 55 mls/hr ONCE ONCE IVPB ; Start 09/26/16 at 11:30; Stop 09/26/16 at 13:29 NATALY PAGE Sep 26, 2016 11:26
[2016-09-26] MEDS ORDERED: POTASSIUM CHLORIDE 20 MEQ in SOD CHLORIDE 0.9% 100 ML IVPB ONE (11:30)
[2016-09-26] MEDS: TIOTROPIUM 18 MCG CAPSULE INHA DEV INH SCH (11:52)
--- NOTE | 2016-09-26 12:30 | PN ---
DATE: 09/26/2016 SUBJECTIVE: No events overnight. No fevers. The patient is alert, complaining of abdominal pain. She looks comfortable. WBC today 16.6 with platelets 220, neutrophils 85.4, BUN 20, creatinine 1.2 3. MICROBIOLOGY: All cultures have been negative. INDWELLINGS: The patient had PICC line placed on 09/21/2016 and STEPHANIE. ANTIMICROBIALS 1. Zosyn. 2. Fluconazole. PHYSICAL EXAMINATION: GENERAL: Fragile, elderly woman who is alert, in no distress. HEENT: Head atraumatic, normocephalic. Sclerae anicteric. Buccal mucosa pink. NECK: Supple, trachea midline. CHEST: Rise symmetrical. Breath sounds clear. HEART: S1, S2. ABDOMEN: Soft with some tenderness on palpation. Bowel tones present. EXTREMITIES: Without cyanosis. ASSESSMENT: 1. Persistent leukocytosis, no evidence of sepsis, possibly intra-abdominal, etiology. 2. Small-bowel obstruction, status post exploratory laparotomy, abdominal washout, small bowel rese ction and abscess drainage on 09/20/2016. 3. Chronic obstructive pulmonary disease. 4. Acute on chronic kidney disease. PLAN: The patient remains clinically stable, awaiting for CT of the abdomen. Continue on current a ntimicrobials. Follow recommendations of specialists. Dictated By: YASMANY BECERRA [id number] ARMOR CREWMAN for THOMAS WEBSTER/VU Conf#: [id number] DID#: [id number]
--- NOTE | 2016-09-26 14:13 | PN ---
Date/Time of Note Date/Time of Note DATE: 09/26/16 TIME: 14:10 Assessment/Plan VTE Prophylaxis VTE Prophylaxis Intervention: SCD's Lines/Catheters IV Catheter Type (from Nrs): PICC Line Central line still needed: Yes Urinary Cath still in place: No Reason Cath still needed: other (indicate) Assessment/Plan Chief Complaint/Hosp Course Assessment/Plan 1. Small bowel obstruction s/p Recent Laproscopic Appendectomy Status post small bowel resection x2. Continue postsurgical care, pain management and IV antibiotics Diet as per general surgery recommendations Follow-up KUB 2. Sepsis Likely secondary to intra-abdominal abscess and postoperatively infectious disease doctor has been consulted, continue Zosyn and Flagyl Follow-up blood culture, continue aggressive IV fluids 3. Hyperkalemia Resolved status post IV fluid, nephrology has been consulted, follow-up electrolytes in a.m. 4 . Abdominal abscess. Status post drainage by interventional radiologist and Diagnostic laparoscopy, Exploratory laparotomy and abdominal washout. Continue aggressive IV antibiotics 3. COPD 4. History of hypertension At this time patient is hypotensive, we will hold all blood pressure medications 5. Hyperlipidemia 6. Hypothyroidism We will continue monitor patient closely for recommendation management treatment as clinical course Problems: Subjective 24 Hr Interval Summary Free Text/Dictation Patient complains of having generalized abdominal pain No bowel movement 4 days No nausea or vomiting Exam/Review of Systems Vital Signs Vitals Vital Signs Date Time Temp Pulse Resp B/P Pulse Ox O2 Delivery O2 Flow Rate FiO2 09/26/16 07:34 97.9 94 18 146/74 96 09/26/16 02:34 6.0 09/25/16 22:00 Nasal Cannula Intake and Output 09/25/16 09/25/16 09/26/16 15:00 23:00 07:00 Intake Total 200 ml 340 ml 980 ml Output Total 0 ml Balance 200 ml 340 ml 980 ml Exam General: The patient is well-developed, Not in acute distress. HEENT: Atraumatic, normocephalic. The pupils are equal and round . Neck: Supple with full range of motion. Chest: Normal expansion of the thorax during inspiration Lungs: Clear to auscultation bilaterally Heart: Normal S1-S2, Regular rhythm and rate. Abdomen: Soft , minimally tender, minimally distended , bowel sounds are present. Surgical site is dry and clean Extremities: Normal to inspection, no edema no cyanosis Neurologic: Normal mental status,The patient is awake, alert and oriented . Results Result Diagram: 09/26/16 0520 09/26/16 0520 Results 24 hrs Laboratory Tests Test 09/26/16 05:20 09/26/16 09:56 Anion Gap 9 Basophils # 0.0 Basophils % 0.0 Blood Morphology Comment Blood Urea Nitrogen 20 Calcium Level 7.8 L Carbon Dioxide Level 28 Chloride Level 103 Creatinine 1.23 H Eosinophils # 0.2 Eosinophils % 1.4 Glucose Level 143 # Hematocrit 25.5 L Hemoglobin 8.6 L Lymphocytes # 1.1 Lymphocytes % 6.5 L Mean Corpuscular Hemoglobin 29.0 Mean Corpuscular Hemoglobin Concent 33.6 Mean Corpuscular Volume 86.4 Mean Platelet Volume 7.8 Monocytes # 1.1 H Monocytes % 6.7 Neutrophils # 14.2 H Neutrophils % 85.4 H Nucleated Red Blood Cells # 0.0 Nucleated Red Blood Cells % 0.0 Platelet Count 202 Potassium Level 3.3 L Red Blood Count 2.95 L Red Cell Distribution Width 15.2 H Sodium Level 137 White Blood Count 16.6 H Lab Scanned Report REFERENCE LAB Medications Medications Current Medications Salmeterol Xinafoate/ Fluticasone (Advair 250/50 Diskus) 1 inh BID INH Last administered on 09/26/16 09:05; Admin Dose 1 INH; Start 09/20/16 at 09:00 Tiotropium [place] (Spiriva) 1 inh DAILY INH Last administered on 09/26/16 11: 52; Admin Dose 1 INH; Start 09/20/16 at 09:00 Dorzolamide/ Timolol (Cosopt) 1 drop BID LEFT EYE Last administered on 09:06; Admin Dose 1 DROP; Start 09/20/16 at 13:30 Latanoprost (Xalatan) 1 drop DAILY LEFT EYE Last administered on 09/26/16 09: 06; Admin Dose 1 DROP; Start 09/20/16 at 13:30 Ondansetron HCl (Zofran Inj) 4 mg Q6H PRN IV NAUSEA AND/OR VOMITING Last administered on 09/23/16 07:59; Admin Dose 4 MG; Start 09/20/16 at 20:30 Pantoprazole (Protonix Iv) 40 mg DAILY@06 IV Last administered on 09/26/16 05: 26; Admin Dose 40 MG; Start 09/21/16 at 06:00 IV Flush (NS 10 ml) 10 ml PRN PRN IV IV PROTOCOL; Start 09/21/16 at 17:30 Acetaminophen (Tylenol Liquid) 650 mg Q6H PRN NGT PAIN AND OR ELEVATED TEMP Last administered on 09/22/16 09:09; Admin Dose 650 MG; Start 09/22/16 at 00:20 Enoxaparin Sodium 30 mg 30 mg DAILY SC Last administered on 09/26/16 09:09; Admin Dose 30 MG; Start 09/23/16 at 09:00 Piperacillin Sod/ Tazobactam Sod 50 ml @ 200 mls/hr Q6 IVPB Last administered on 09/26/16 13:39; Admin Dose 200 MLS/HR; Start 09/22/16 at 12:00 Fluconazole/ Sodium Chloride (Diflucan 100 Mg/ NS (Pmx)) 50 ml @ 50 mls/hr Q24H IVPB Last administered on 09/25/16 16:53; Admin Dose 50 MLS/HR; Start at 16:00 Hydromorphone HCl (Dilaudid) 0.25 mg Q2H PRN IV MODERATE PAIN LEVEL 4-6 Last administered on 09/26/16 02:35; Admin Dose 0.25 MG; Start 09/22/16 at 15:00 Hydromorphone HCl 0.5 mg 0.5 mg Q2H PRN IV PAIN LEVEL 7-10 Last administered on 09/26/16 13:54; Admin Dose 0.5 MG; Start 09/22/16 at 15:00 Total Parenteral Nutrition 1,000 ml @ 75 mls/hr [id number] IV Last administered on 09/26/16 07:46; Admin Dose 75 MLS/HR; Start 09/25/16 at 15:00 Fat Emulsion Intravenous (Liposyn Ii 20%) 500 ml @ 20.833 mls/ hr Q24H IV Last administered on 09/25/16 15:53; Admin Dose 20.833 MLS/HR; Start 09/25/16 at 15:00 YAMILE LARA MD Sep 26, 2016 14:13
--- NOTE | 2016-09-26 14:41 | RADRPT ---
PROCEDURE: XR Abdomen. CLINICAL INDICATION: Abdomen pain. TECHNIQUE: Two views. AP supine and AP erect. COMPARISON: 09/20/2016. FINDINGS: The nasogastric tube, Santos catheter, and surgical drain have been removed. There is gas containing mildly dilated loops of small bowel in the upper abdomen measuring up to 4.0 cm. Gas is present in the colon. Surgical clips are present in the right lower quadrant. There is no evidence of obstruction. There are no abnormal calcifications overlying the urinary tracts. There are degenerative changes of the spine. IMPRESSION: 1. Nasogastric tube, Santos catheter, and surgical drain have been removed. 2. Mildly dilated gas containing small bowel in the upper abdomen. No evidence of obstruction. 3. Degenerative changes of the spine. RPTAT: QQ .Elvis Henderson MD, MD Date Time Electronically viewed and signed by .Elvis Henderson MD, MD on 09/26/2016 14:41 .R/
[2016-09-26] MEDS: FLUCONAZOLE 100 MG/NS (PMX) 50 ML IVPB SCH (16:49)
[2016-09-26] MEDS: FAT EMULSION 20% 500 ML IV SCH (16:52)
--- NOTE | 2016-09-26 18:06 | PN ---
DATE: 09/26/2016 SUBJECTIVE: Ms. Aguila is now postoperative day 6 from a small-bowel resection for small-bowel ob struction. The patient is resting comfortably without complaints. She denies bowel movement or fla tus. She says her appetite is increasing. PHYSICAL EXAMINATION: VITAL SIGNS: She is afebrile. Vital signs stable. Her urine output has been over 1 L. ABDOMEN: Mildly distended, soft with good bowel sounds in all 4 quadrants. Her wound is slightly e rythematous. LABORATORIES TODAY: White count of 16, hematocrit of 26 and platelets of 202. Her bands are 6.5%. Her sodium is 137, potassium 3.3, chloride 103, CO2 28, BUN and creatinine 20 and 1.2, and glucose 143. IMAGING: She had 2 views of AP supine and erect of her abdomen today which revealed mildly dilated gas-containing small bowel in the upper abdomen. No evidence of obstruction. ASSESSMENT AND PLAN: Ms. Aguila is an 86-year-old female, postoperative day 6 from a small-bowel resection. 1. Persistent leukocytosis. A CT was ordered today, but the CT scan is broken so will wait until t omorrow. 2. Ileus, persistent. The abdominal x-rays do not show evidence of a bowel obstruction, so hopeful ly the ileus is resolving. 3. Wound. There is slight erythema surrounding the wound. The wound has not been packed for 2 day s. Will change the dressing today, instruct the nurses. 4. Renal function resolving. The patient is complaining of increased frequency. Will bladder scan the patient to make sure she is not in retention. Dictated By: TRISTAN MYLES/VU Conf#: [id number] DID#: [id number]
--- NOTE | 2016-09-26 19:14 | CONS ---
Date/Time of Note Date/Time of Note DATE: 09/26/16 TIME: 19:13 Assessment/Plan Assessment/Plan Additional Assessment/Plan Small bowel obstruction with abdominal abscess status post repeat surgery Shock, possibly sepsis versus hypovolemic, resolved Acute blood loss anemia Diastolic congestive heart failure Acute appendicitis status post surgery Preserved ejection fraction Hypertension Acute kidney injury. -Blood pressure trend has overall remained stable. No evidence of decompensated congestive heart failure at the current time. No new cardiac orders at the current time. Consultation Date/Type/Reason Admit Date/Time Sep 19, 2016 at 22:10 Type of Consultation: cv Referring Provider: YAMILE LARA MD 24 HR Interval Summary Free Text/Dictation Denies chest pain, shortness of breath Exam/Review of Systems Vital Signs Vitals Vital Signs Date Time Temp Pulse Resp B/P Pulse Ox O2 Delivery O2 Flow Rate FiO2 09/26/16 09:00 Nasal Cannula 4.0 09/26/16 07:34 97.9 94 18 146/74 96 Intake and Output 09/25/16 09/25/16 09/26/16 15:00 23:00 07:00 Intake Total 200 ml 340 ml 980 ml Output Total 0 ml Balance 200 ml 340 ml 980 ml Exam No apparent distress Constitutional: alert, oriented Head: normocephalic Neck: supple Respiratory: other (Coarse breath sounds bilaterally, no wheezing) Cardiovascular: other (S1-S2 heard), regular rate and rhythm Gastrointestinal: bowel sounds, other (Tenderness to palpation, no guarding), soft Extremities: edema (Trace) Results Result Diagram: 09/26/16 0520 09/26/16 0520 Results 24 hrs Laboratory Tests Test 09/26/16 05:20 09/26/16 09:56 Anion Gap 9 Basophils # 0.0 Basophils % 0.0 Blood Morphology Comment Blood Urea Nitrogen 20 Calcium Level 7.8 L Carbon Dioxide Level 28 Chloride Level 103 Creatinine 1.23 H Eosinophils # 0.2 Eosinophils % 1.4 Glucose Level 143 # Hematocrit 25.5 L Hemoglobin 8.6 L Lymphocytes # 1.1 Lymphocytes % 6.5 L Mean Corpuscular Hemoglobin 29.0 Mean Corpuscular Hemoglobin Concent 33.6 Mean Corpuscular Volume 86.4 Mean Platelet Volume 7.8 Monocytes # 1.1 H Monocytes % 6.7 Neutrophils # 14.2 H Neutrophils % 85.4 H Nucleated Red Blood Cells # 0.0 Nucleated Red Blood Cells % 0.0 Platelet Count 202 Potassium Level 3.3 L Red Blood Count 2.95 L Red Cell Distribution Width 15.2 H Sodium Level 137 White Blood Count 16.6 H Lab Scanned Report REFERENCE LAB Medications Medications Current Medications Salmeterol Xinafoate/ Fluticasone (Advair 250/50 Diskus) 1 inh BID INH Last administered on 09/26/16 09:05; Admin Dose 1 INH; Start 09/20/16 at 09:00 Tiotropium [place] (Spiriva) 1 inh DAILY INH Last administered on 09/26/16 11: 52; Admin Dose 1 INH; Start 09/20/16 at 09:00 Dorzolamide/ Timolol (Cosopt) 1 drop BID LEFT EYE Last administered on 09:06; Admin Dose 1 DROP; Start 09/20/16 at 13:30 Latanoprost (Xalatan) 1 drop DAILY LEFT EYE Last administered on 09/26/16 09: 06; Admin Dose 1 DROP; Start 09/20/16 at 13:30 Ondansetron HCl (Zofran Inj) 4 mg Q6H PRN IV NAUSEA AND/OR VOMITING Last administered on 09/23/16 07:59; Admin Dose 4 MG; Start 09/20/16 at 20:30 Pantoprazole (Protonix Iv) 40 mg DAILY@06 IV Last administered on 09/26/16 05: 26; Admin Dose 40 MG; Start 09/21/16 at 06:00 IV Flush (NS 10 ml) 10 ml PRN PRN IV IV PROTOCOL; Start 09/21/16 at 17:30 Acetaminophen (Tylenol Liquid) 650 mg Q6H PRN NGT PAIN AND OR ELEVATED TEMP Last administered on 09/22/16 09:09; Admin Dose 650 MG; Start 09/22/16 at 00:20 Enoxaparin Sodium 30 mg 30 mg DAILY SC Last administered on 09/26/16 09:09; Admin Dose 30 MG; Start 09/23/16 at 09:00 Piperacillin Sod/ Tazobactam Sod 50 ml @ 200 mls/hr Q6 IVPB Last administered on 09/26/16 17:52; Admin Dose 200 MLS/HR; Start 09/22/16 at 12:00 Fluconazole/ Sodium Chloride (Diflucan 100 Mg/ NS (Pmx)) 50 ml @ 50 mls/hr Q24H IVPB Last administered on 09/26/16 16:49; Admin Dose 50 MLS/HR; Start at 16:00 Hydromorphone HCl (Dilaudid) 0.25 mg Q2H PRN IV MODERATE PAIN LEVEL 4-6 Last administered on 09/26/16 02:35; Admin Dose 0.25 MG; Start 09/22/16 at 15:00 Hydromorphone HCl 0.5 mg 0.5 mg Q2H PRN IV PAIN LEVEL 7-10 Last administered on 09/26/16 13:54; Admin Dose 0.5 MG; Start 09/22/16 at 15:00 Total Parenteral Nutrition 1,000 ml @ 75 mls/hr [id number] IV Last administered on 09/26/16 07:46; Admin Dose 75 MLS/HR; Start 09/25/16 at 15:00 Fat Emulsion Intravenous (Liposyn Ii 20%) 500 ml @ 20.833 mls/ hr Q24H IV Last administered on 09/26/16 16:52; Admin Dose 20.833 MLS/HR; Start 09/25/16 at 15:00 Taco Castillo DO Sep 26, 2016 19:14
[2016-09-26] MEDS: morphine 2 MG INJ IV PRN ×2 (20:03→22:06)
[2016-09-26 21:16] VITALS: BP 172/79; RESP 19
[2016-09-26] MEDS: ALBUTEROL/IPRATROPIUM (NEB) 3 ML AMP HHN PRN (21:45)
[2016-09-26] MEDS: ZOLPIDEM 5 MG TAB PO PRN (23:11)
[2016-09-27] MEDS: morphine 2 MG INJ IV PRN ×7 (01:07→20:16)
[2016-09-27] MEDS: ACCUCHECK XX SCH ×6 (01:11→21:28)
[2016-09-27 01:16] VITALS: BP 154/72; PULSE 92
[2016-09-27] MEDS: PANTOPRAZOLE 40 MG INJ IV SCH (05:26)
[2016-09-27] MEDS: PIPER-TAZO 2.25 GM (PMX) 50 ML IVPB SCH ×3 (05:26→17:22)
[2016-09-27] MEDS: TPN 1,000 ML IV SCH ×2 (07:00→11:50)
[2016-09-27 07:33] LABS: POTASSIUM 3.3 mmol/L (3.5-5.1)
[2016-09-27 07:35] LABS: CREATININE 1.02 mg/dl (0.44-1.00)
[2016-09-27 07:36] LABS: CALCIUM 8.1 mg/dl (8.4-10.2)
[2016-09-27] MEDS: hydrALAzine 20 MG INJ IV PRN (08:11)
[2016-09-27 08:19] VITALS: BP 101/58; RESP 17
[2016-09-27 08:59] LABS: BASOPHILS % 0.1 % (0.0-2.0); EOSINOPHILS # 0.3 10^3/ul (0.0-0.5); EOSINOPHILS % 1.5 % (0.0-7.0); HEMATOCRIT 26.9 % (37.0-47.0); HEMOGLOBIN 9.2 g/dl (12.0-16.0); LYMPHOCYTES # 1.3 10^3/ul (0.8-2.9); LYMPHOCYTES % 7.3 % (15.0-51.0); MEAN CORPUSCULAR HEMOGLOBIN 29.4 pg (29.0-33.0); MEAN CORPUSCULAR HGB CONC 34.1 g/dl (32.0-37.0); MEAN CORPUSCULAR VOLUME 86.4 fl (82.0-101.0); MEAN PLATELET VOLUME 8.1 fl (7.4-10.4); MONOCYTE # 1.6 10^3/ul (0.3-0.9); NEUTROPHIL # 14.7 10^3/ul (1.6-7.5); NEUTROPHILS % 82.1 % (39.0-77.0); PLATELET COUNT 188 10^3/UL (140-440); RED BLOOD COUNT 3.12 10^6/ul (4.20-5.40); RED CELL DISTRIBUTION WIDTH 15.5 % (11.5-14.5); UNCORRECTED WBC 17.9 10^3/ul (4.8-10.8); WHITE BLOOD COUNT 17.9 10^3/ul (4.8-10.8)
[2016-09-27 09:00] VITALS: BP 139/61; PULSE 97
[2016-09-27 09:05] LABS: CONDITION 1; LH ANALYZER COMMENTS 1
[2016-09-27] MEDS: DORZOLAMIDE/TIMOLOL 10 ML OPH LEFT EYE SCH ×2 (09:12→20:16)
[2016-09-27] MEDS: SALMETEROL/FLUTICASONE 250/50 INHA INH SCH ×2 (09:13→21:29)
[2016-09-27] MEDS: TIOTROPIUM 18 MCG CAPSULE INHA DEV INH SCH (09:13)
[2016-09-27] MEDS: LATANOPROST 0.005% 2.5 ML OPH LEFT EYE SCH (09:14)
[2016-09-27] MEDS: KETOROLAC 15 MG INJ IV SCH ×3 (09:36→21:29)
[2016-09-27] MEDS: ENOXAPARIN 30 MG/0.3 ML SYG SC SCH (09:40)
--- NOTE | 2016-09-27 10:31 | CONS ---
Date/Time of Note Date/Time of Note DATE: 09/27/16 TIME: 10:29 Assessment/Plan Assessment/Plan Additional Assessment/Plan 1. Sepsis. 2. Acute kidney injury secondary to acute tubular necrosis from sepsis. 3. Acute hyperkalemia with metabolic acidosis likely secondary to acute kidney injury.- now resolved to hypokalemia 4. Small bowel obstructions status post exploratory laparotomy and abdominal washout 5. History of recent laparoscopic appendectomy. 6. History of hypertension 7. History of chronic obstructive pulmonary disease. 8. History of hypothyroidism. PLAN: BUN/Cr imrpoving to 1.02 , U/o good K low- [id number] IV x 1 dose now will follow up Consultation Date/Type/Reason Admit Date/Time Sep 19, 2016 at 22:10 Initial Consult Date Sep Type of Consultation: NEPHROLOGY Reason for Consultation TONY, Hyperkalemia Referring Provider: YAMILE LARA MD 24 HR Interval Summary Free Text/Dictation Cr better, K low, pt is oN TPN< still not on PO diet yet Exam/Review of Systems Vital Signs Vitals Vital Signs Date Time Temp Pulse Resp B/P Pulse Ox O2 Delivery O2 Flow Rate FiO2 09/27/16 09:00 97 139/61 09/27/16 08:19 97.2 17 96 09/27/16 02:47 3.0 09/26/16 21:46 Nasal Cannula 32 Intake and Output 09/26/16 09/26/16 09/27/16 15:00 23:00 07:00 Intake Total 360 ml 1290 ml 787 ml Output Total 1050 ml 1200 ml Balance 360 ml 240 ml -413 ml Exam GENERAL: Awake, alert, in moderate distress. HEENT: Normal. Oropharynx clear. NG tube in place. LUNGS: Decreased breath sounds at both lung bases with minimal expiratory wheezing present. HEART: S1, S2, tachycardia, no murmur. ABDOMEN: Soft. dressing present EXTREMITIES: no edema, + jang catheter in place NEUROLOGICAL: Nonfocal, intact. PSYCHIATRIC: Appropriate affect and mood. Results Result Diagram: 09/27/16 0550 09/27/16 0550 Results 24 hrs Laboratory Tests Test 09/27/16 01:06 09/27/16 05:35 09/27/16 05:50 09/27/16 09:39 Bedside Glucose 132 139 132 Anion Gap 11 Basophils # 0.0 Basophils % 0.1 Blood Morphology Comment Blood Urea Nitrogen 22 H Calcium Level 8.1 L Carbon Dioxide Level 28 Chloride Level 101 Creatinine 1.02 H Eosinophils # 0.3 Eosinophils % 1.5 Glucose Level 132 Hematocrit 26.9 L Hemoglobin 9.2 L Lymphocytes # 1.3 Lymphocytes % 7.3 L Mean Corpuscular Hemoglobin 29.4 Mean Corpuscular Hemoglobin Concent 34.1 Mean Corpuscular Volume 86.4 Mean Platelet Volume 8.1 Monocytes # 1.6 H Monocytes % 9.0 Neutrophils # 14.7 H Neutrophils % 82.1 H Nucleated Red Blood Cells # 0.0 Nucleated Red Blood Cells % 0.0 Platelet Count 188 Potassium Level 3.3 L Red Blood Count 3.12 L Red Cell Distribution Width 15.5 H Sodium Level 137 White Blood Count 17.9 H Medications Medications Current Medications Salmeterol Xinafoate/ Fluticasone (Advair 250/50 Diskus) 1 inh BID INH Last administered on 09/27/16 09:13; Admin Dose 1 INH; Start 09/20/16 at 09:00 Tiotropium [place] (Spiriva) 1 inh DAILY INH Last administered on 09/27/16 09: 13; Admin Dose 1 INH; Start 09/20/16 at 09:00 Dorzolamide/ Timolol (Cosopt) 1 drop BID LEFT EYE Last administered on 09:12; Admin Dose 1 DROP; Start 09/20/16 at 13:30 Latanoprost (Xalatan) 1 drop DAILY LEFT EYE Last administered on 09/27/16 09: 14; Admin Dose 1 DROP; Start 09/20/16 at 13:30 Ondansetron HCl (Zofran Inj) 4 mg Q6H PRN IV NAUSEA AND/OR VOMITING Last administered on 09/23/16 07:59; Admin Dose 4 MG; Start 09/20/16 at 20:30 Pantoprazole (Protonix Iv) 40 mg DAILY@06 IV Last administered on 09/27/16 05: 26; Admin Dose 40 MG; Start 09/21/16 at 06:00 IV Flush (NS 10 ml) 10 ml PRN PRN IV IV PROTOCOL; Start 09/21/16 at 17:30 Acetaminophen (Tylenol Liquid) 650 mg Q6H PRN NGT PAIN AND OR ELEVATED TEMP Last administered on 09/22/16 09:09; Admin Dose 650 MG; Start 09/22/16 at 00:20 Enoxaparin Sodium 30 mg 30 mg DAILY SC Last administered on 09/27/16 09:40; Admin Dose 30 MG; Start 09/23/16 at 09:00 Piperacillin Sod/ Tazobactam Sod 50 ml @ 200 mls/hr Q6 IVPB Last administered on 09/27/16 05:26; Admin Dose 200 MLS/HR; Start 09/22/16 at 12:00 Fluconazole/ Sodium Chloride 50 ml @ 50 mls/hr Q24H IVPB Last administered on 16:49; Admin Dose 50 MLS/HR; Start 09/22/16 at 16:00 Total Parenteral Nutrition 1,000 ml @ 75 mls/hr [id number] IV Last administered on 09/26/16 22:39; Admin Dose 75 MLS/HR; Start 09/25/16 at 15:00 Fat Emulsion Intravenous (Liposyn Ii 20%) 500 ml @ 20.833 mls/ hr Q24H IV Last administered on 09/26/16 16:52; Admin Dose 20.833 MLS/HR; Start 09/25/16 at 15:00 Morphine Sulfate (morphine) 1 mg Q2H PRN IV PAIN Last administered on 06:57; Admin Dose 1 MG; Start 09/26/16 at 19:54 Diagnostic Test (Pha) (Accucheck) 1 ea Q4 XX Last administered on 09/27/16 05: 29; Admin Dose 1 EA; Start 09/27/16 at 01:00 Hydralazine HCl (Apresoline) 10 mg Q6H PRN IV for sbp>160 Last administered on 09/27/16 08:11; Admin Dose 10 MG; Start 09/27/16 at 08:00 Ketorolac Tromethamine (Toradol) 15 mg Q6H IV Last administered on 09/27/16 09 :36; Admin Dose 15 MG; Start 09/27/16 at 09:00; Stop 09/29/16 at 03:01 MADISYN MANUEL MD Sep 27, 2016 10:31
[2016-09-27] MEDS ORDERED: POTASSIUM CHLORIDE 20 MEQ in SOD CHLORIDE 0.9% 100 ML IVPB ONE (12:00)
--- NOTE | 2016-09-27 13:03 | CONS ---
Date/Time of Note Date/Time of Note DATE: 09/27/16 TIME: 13:02 Assessment/Plan Assessment/Plan Chief Complaint/Hosp Course SUBJECTIVE: No events overnight. No fevers. The patient is sleeping, looks comfortable. INDWELLINGS: The patient had PICC line placed on 09/21/2016 and STEPHANIE. ANTIMICROBIALS 1. Zosyn. 2. Fluconazole. PHYSICAL EXAMINATION: GENERAL: Fragile, elderly woman who is alert, in no distress. HEENT: Head atraumatic, normocephalic. Sclerae anicteric. Buccal mucosa pink. NECK: Supple, trachea midline. CHEST: Rise symmetrical. Breath sounds clear. HEART: S1, S2. ABDOMEN: Soft with some tenderness on palpation. Bowel tones present. EXTREMITIES: Without cyanosis. ASSESSMENT: 1. Persistent leukocytosis, probably intra-abdominal, etiology. 2. Small-bowel obstruction, status post exploratory laparotomy, abdominal washout, small bowel resection and abscess drainage on 09/20/2016. 3. Chronic obstructive pulmonary disease. 4. Acute on chronic kidney disease. PLAN: The patient remains clinically stable, awaiting for CT of the abdomen. Continue on current antimicrobials. Follow recommendations of specialists. DW staff Problems: Consultation Date/Type/Reason Admit Date/Time Sep 19, 2016 at 22:10 Initial Consult Date Type of Consultation: ID Referring Provider: YAMILE LARA MD Exam/Review of Systems Vital Signs Vitals Vital Signs Date Time Temp Pulse Resp B/P Pulse Ox O2 Delivery O2 Flow Rate FiO2 09/27/16 09:00 97 139/61 09/27/16 08:19 97.2 17 96 09/27/16 08:00 Nasal Cannula 4.0 09/26/16 21:46 32 Intake and Output 09/26/16 09/26/16 09/27/16 15:00 23:00 07:00 Intake Total 360 ml 1290 ml 787 ml Output Total 1050 ml 1200 ml Balance 360 ml 240 ml -413 ml Results Result Diagram: 09/27/16 0550 09/27/16 0550 Results 24 hrs Laboratory Tests Test 09/27/16 01:06 09/27/16 05:35 09/27/16 05:50 09/27/16 09:39 Bedside Glucose 132 139 132 Anion Gap 11 Basophils # 0.0 Basophils % 0.1 Blood Morphology Comment Blood Urea Nitrogen 22 H Calcium Level 8.1 L Carbon Dioxide Level 28 Chloride Level 101 Creatinine 1.02 H Eosinophils # 0.3 Eosinophils % 1.5 Glucose Level 132 Hematocrit 26.9 L Hemoglobin 9.2 L Lymphocytes # 1.3 Lymphocytes % 7.3 L Mean Corpuscular Hemoglobin 29.4 Mean Corpuscular Hemoglobin Concent 34.1 Mean Corpuscular Volume 86.4 Mean Platelet Volume 8.1 Monocytes # 1.6 H Monocytes % 9.0 Neutrophils # 14.7 H Neutrophils % 82.1 H Nucleated Red Blood Cells # 0.0 Nucleated Red Blood Cells % 0.0 Platelet Count 188 Potassium Level 3.3 L Red Blood Count 3.12 L Red Cell Distribution Width 15.5 H Sodium Level 137 White Blood Count 17.9 H Medications Medications Current Medications Salmeterol Xinafoate/ Fluticasone (Advair 250/50 Diskus) 1 inh BID INH Last administered on 09/27/16 09:13; Admin Dose 1 INH; Start 09/20/16 at 09:00 Tiotropium [place] (Spiriva) 1 inh DAILY INH Last administered on 09/27/16 09: 13; Admin Dose 1 INH; Start 09/20/16 at 09:00 Dorzolamide/ Timolol (Cosopt) 1 drop BID LEFT EYE Last administered on 09:12; Admin Dose 1 DROP; Start 09/20/16 at 13:30 Latanoprost (Xalatan) 1 drop DAILY LEFT EYE Last administered on 09/27/16 09: 14; Admin Dose 1 DROP; Start 09/20/16 at 13:30 Ondansetron HCl (Zofran Inj) 4 mg Q6H PRN IV NAUSEA AND/OR VOMITING Last administered on 09/23/16 07:59; Admin Dose 4 MG; Start 09/20/16 at 20:30 Pantoprazole (Protonix Iv) 40 mg DAILY@06 IV Last administered on 09/27/16 05: 26; Admin Dose 40 MG; Start 09/21/16 at 06:00 IV Flush (NS 10 ml) 10 ml PRN PRN IV IV PROTOCOL; Start 09/21/16 at 17:30 Acetaminophen (Tylenol Liquid) 650 mg Q6H PRN NGT PAIN AND OR ELEVATED TEMP Last administered on 09/22/16 09:09; Admin Dose 650 MG; Start 09/22/16 at 00:20 Enoxaparin Sodium 30 mg 30 mg DAILY SC Last administered on 09/27/16 09:40; Admin Dose 30 MG; Start 09/23/16 at 09:00 Piperacillin Sod/ Tazobactam Sod 50 ml @ 200 mls/hr Q6 IVPB Last administered on 09/27/16 11:44; Admin Dose 200 MLS/HR; Start 09/22/16 at 12:00 Fluconazole/ Sodium Chloride 50 ml @ 50 mls/hr Q24H IVPB Last administered on 16:49; Admin Dose 50 MLS/HR; Start 09/22/16 at 16:00 Total Parenteral Nutrition 1,000 ml @ 75 mls/hr [id number] IV Last administered on 09/27/16 11:50; Admin Dose 75 MLS/HR; Start 09/25/16 at 15:00 Fat Emulsion Intravenous (Liposyn Ii 20%) 500 ml @ 20.833 mls/ hr Q24H IV Last administered on 09/26/16 16:52; Admin Dose 20.833 MLS/HR; Start 09/25/16 at 15:00 Morphine Sulfate (morphine) 1 mg Q2H PRN IV PAIN Last administered on 12:27; Admin Dose 1 MG; Start 09/26/16 at 19:54 Diagnostic Test (Pha) (Accucheck) 1 ea Q4 XX Last administered on 09/27/16 05: 29; Admin Dose 1 EA; Start 09/27/16 at 01:00 Hydralazine HCl (Apresoline) 10 mg Q6H PRN IV for sbp>160 Last administered on 09/27/16 08:11; Admin Dose 10 MG; Start 09/27/16 at 08:00 Ketorolac Tromethamine 15 mg 15 mg Q6H IV Last administered on 09/27/16 09:36 ; Admin Dose 15 MG; Start 09/27/16 at 09:00; Stop 09/29/16 at 03:01 Potassium Chloride/Sodium Chloride (KCl/NS) 110 ml @ 55 mls/hr ONCE ONCE IVPB Last administered on 09/27/16 12:27; Admin Dose 55 MLS/HR; Start 09/27/16 at 12:00; Stop 09/27/16 at 13:59 YASMANY BECERRA NP Sep 27, 2016 13:03
--- NOTE | 2016-09-27 13:25 | PN ---
Date/Time of Note Date/Time of Note DATE: 09/27/16 TIME: 13:25 Assessment/Plan VTE Prophylaxis VTE Prophylaxis Intervention: SCD's Lines/Catheters IV Catheter Type (from Nrs): PICC Line Central line still needed: No Urinary Cath still in place: No Reason Cath still needed: urinary retention Assessment/Plan Assessment/Plan Small bowel obstruction with abdominal abscess status post repeat surgery Shock, possibly sepsis versus hypovolemic, resolved Acute blood loss anemia Diastolic congestive heart failure Acute appendicitis status post surgery Preserved ejection fraction Hypertension Acute kidney injury. -Blood pressure trend has overall remained stable. No evidence of decompensated congestive heart failure at the current time. No new cardiac orders at the current time. Subjective 24 Hr Interval Summary Free Text/Dictation the aptient stable overnight Exam/Review of Systems Vital Signs Vitals Vital Signs Date Time Temp Pulse Resp B/P Pulse Ox O2 Delivery O2 Flow Rate FiO2 09/27/16 09:00 97 139/61 09/27/16 08:19 97.2 17 96 09/27/16 08:00 Nasal Cannula 4.0 09/26/16 21:46 32 Intake and Output 09/26/16 09/26/16 09/27/16 15:00 23:00 07:00 Intake Total 360 ml 1290 ml 787 ml Output Total 1050 ml 1200 ml Balance 360 ml 240 ml -413 ml Results Result Diagram: 09/27/16 0550 09/27/16 0550 Results 24 hrs Laboratory Tests Test 09/27/16 01:06 09/27/16 05:35 09/27/16 05:50 09/27/16 09:39 Bedside Glucose 132 139 132 Anion Gap 11 Basophils # 0.0 Basophils % 0.1 Blood Morphology Comment Blood Urea Nitrogen 22 H Calcium Level 8.1 L Carbon Dioxide Level 28 Chloride Level 101 Creatinine 1.02 H Eosinophils # 0.3 Eosinophils % 1.5 Glucose Level 132 Hematocrit 26.9 L Hemoglobin 9.2 L Lymphocytes # 1.3 Lymphocytes % 7.3 L Mean Corpuscular Hemoglobin 29.4 Mean Corpuscular Hemoglobin Concent 34.1 Mean Corpuscular Volume 86.4 Mean Platelet Volume 8.1 Monocytes # 1.6 H Monocytes % 9.0 Neutrophils # 14.7 H Neutrophils % 82.1 H Nucleated Red Blood Cells # 0.0 Nucleated Red Blood Cells % 0.0 Platelet Count 188 Potassium Level 3.3 L Red Blood Count 3.12 L Red Cell Distribution Width 15.5 H Sodium Level 137 White Blood Count 17.9 H Medications Medications Current Medications Salmeterol Xinafoate/ Fluticasone (Advair 250/50 Diskus) 1 inh BID INH Last administered on 09/27/16 09:13; Admin Dose 1 INH; Start 09/20/16 at 09:00 Tiotropium [place] (Spiriva) 1 inh DAILY INH Last administered on 09/27/16 09: 13; Admin Dose 1 INH; Start 09/20/16 at 09:00 Dorzolamide/ Timolol (Cosopt) 1 drop BID LEFT EYE Last administered on 09:12; Admin Dose 1 DROP; Start 09/20/16 at 13:30 Latanoprost (Xalatan) 1 drop DAILY LEFT EYE Last administered on 09/27/16 09: 14; Admin Dose 1 DROP; Start 09/20/16 at 13:30 Ondansetron HCl (Zofran Inj) 4 mg Q6H PRN IV NAUSEA AND/OR VOMITING Last administered on 09/23/16 07:59; Admin Dose 4 MG; Start 09/20/16 at 20:30 Pantoprazole (Protonix Iv) 40 mg DAILY@06 IV Last administered on 09/27/16 05: 26; Admin Dose 40 MG; Start 09/21/16 at 06:00 IV Flush (NS 10 ml) 10 ml PRN PRN IV IV PROTOCOL; Start 09/21/16 at 17:30 Acetaminophen (Tylenol Liquid) 650 mg Q6H PRN NGT PAIN AND OR ELEVATED TEMP Last administered on 09/22/16 09:09; Admin Dose 650 MG; Start 09/22/16 at 00:20 Enoxaparin Sodium 30 mg 30 mg DAILY SC Last administered on 09/27/16 09:40; Admin Dose 30 MG; Start 09/23/16 at 09:00 Piperacillin Sod/ Tazobactam Sod 50 ml @ 200 mls/hr Q6 IVPB Last administered on 09/27/16 11:44; Admin Dose 200 MLS/HR; Start 09/22/16 at 12:00 Fluconazole/ Sodium Chloride 50 ml @ 50 mls/hr Q24H IVPB Last administered on 16:49; Admin Dose 50 MLS/HR; Start 09/22/16 at 16:00 Total Parenteral Nutrition 1,000 ml @ 75 mls/hr [id number] IV Last administered on 09/27/16 11:50; Admin Dose 75 MLS/HR; Start 09/25/16 at 15:00 Fat Emulsion Intravenous (Liposyn Ii 20%) 500 ml @ 20.833 mls/ hr Q24H IV Last administered on 09/26/16 16:52; Admin Dose 20.833 MLS/HR; Start 09/25/16 at 15:00 Morphine Sulfate (morphine) 1 mg Q2H PRN IV PAIN Last administered on 12:27; Admin Dose 1 MG; Start 09/26/16 at 19:54 Diagnostic Test (Pha) (Accucheck) 1 ea Q4 XX Last administered on 09/27/16 05: 29; Admin Dose 1 EA; Start 09/27/16 at 01:00 Hydralazine HCl (Apresoline) 10 mg Q6H PRN IV for sbp>160 Last administered on 09/27/16 08:11; Admin Dose 10 MG; Start 09/27/16 at 08:00 Ketorolac Tromethamine 15 mg 15 mg Q6H IV Last administered on 09/27/16 09:36 ; Admin Dose 15 MG; Start 09/27/16 at 09:00; Stop 09/29/16 at 03:01 Potassium Chloride/Sodium Chloride (KCl/NS) 110 ml @ 55 mls/hr ONCE ONCE IVPB Last administered on 09/27/16 12:27; Admin Dose 55 MLS/HR; Start 09/27/16 at 12:00; Stop 09/27/16 at 13:59 TELLO BEY MD Sep 27, 2016 13:25
[2016-09-27] MEDS ORDERED: IODIXANOL LOCM 100 ML BTL ONE (15:01)
[2016-09-27] MEDS ORDERED: SOD CHLORIDE 0.9% 100 ML ONE (15:01)
--- NOTE | 2016-09-27 15:31 | PN ---
Date/Time of Note Date/Time of Note DATE: 09/27/16 TIME: 15:27 Assessment/Plan VTE Prophylaxis VTE Prophylaxis Intervention: SCD's Lines/Catheters IV Catheter Type (from Nrs): PICC Line Central line still needed: Yes Urinary Cath still in place: Yes Reason Cath still needed: other (indicate) Assessment/Plan Chief Complaint/Hosp Course Assessment/Plan 1. Small bowel obstruction s/p Recent Laproscopic Appendectomy Status post small bowel resection x2. Continue postsurgical care, pain management and IV antibiotics Diet as per general surgery recommendations Abdominal x-ray negative for obstruction 2. Sepsis Likely secondary to intra-abdominal abscess and postoperatively infectious disease doctor has been consulted, continue Zosyn and Flagyl Follow-up blood culture, continue aggressive IV fluids 3. Hyperkalemia Resolved status post IV fluid, nephrology has been consulted, follow-up electrolytes in a.m. 4 . Abdominal abscess. Status post drainage by interventional radiologist and Diagnostic laparoscopy, Exploratory laparotomy and abdominal washout. Continue aggressive IV antibiotics 3. COPD 4. History of hypertension At this time patient is hypotensive, we will hold all blood pressure medications 5. Hyperlipidemia 6. Hypothyroidism We will continue monitor patient closely for recommendation management treatment as clinical course Problems: Subjective 24 Hr Interval Summary Free Text/Dictation Patient continues to complain of having mild abdominal discomfort and generalized body ache No nausea or vomiting Denies any chest pain or shortness of breath Exam/Review of Systems Vital Signs Vitals Vital Signs Date Time Temp Pulse Resp B/P Pulse Ox O2 Delivery O2 Flow Rate FiO2 09/27/16 09:00 97 139/61 09/27/16 08:19 97.2 17 96 09/27/16 08:00 Nasal Cannula 4.0 09/26/16 21:46 32 Intake and Output 09/26/16 09/26/16 09/27/16 15:00 23:00 07:00 Intake Total 360 ml 1290 ml 787 ml Output Total 1050 ml 1200 ml Balance 360 ml 240 ml -413 ml Exam General: The patient is well-developed, Not in acute distress. HEENT: Atraumatic, normocephalic. The pupils are equal and round . Neck: Supple with full range of motion. Chest: Normal expansion of the thorax during inspiration Lungs: Clear to auscultation bilaterally Heart: Normal S1-S2, Regular rhythm and rate. Abdomen: Soft , minimally tender, nondistended , bowel sounds hypoactive although there are are present. Extremities: Normal to inspection, no edema no cyanosis Neurologic: Normal mental status,The patient is awake, alert and oriented . Results Result Diagram: 09/27/16 0550 09/27/16 0550 Results 24 hrs Laboratory Tests Test 09/27/16 01:06 09/27/16 05:35 09/27/16 05:50 09/27/16 09:39 Bedside Glucose 132 139 132 Anion Gap 11 Basophils # 0.0 Basophils % 0.1 Blood Morphology Comment Blood Urea Nitrogen 22 H Calcium Level 8.1 L Carbon Dioxide Level 28 Chloride Level 101 Creatinine 1.02 H Eosinophils # 0.3 Eosinophils % 1.5 Glucose Level 132 Hematocrit 26.9 L Hemoglobin 9.2 L Lymphocytes # 1.3 Lymphocytes % 7.3 L Mean Corpuscular Hemoglobin 29.4 Mean Corpuscular Hemoglobin Concent 34.1 Mean Corpuscular Volume 86.4 Mean Platelet Volume 8.1 Monocytes # 1.6 H Monocytes % 9.0 Neutrophils # 14.7 H Neutrophils % 82.1 H Nucleated Red Blood Cells # 0.0 Nucleated Red Blood Cells % 0.0 Platelet Count 188 Potassium Level 3.3 L Red Blood Count 3.12 L Red Cell Distribution Width 15.5 H Sodium Level 137 White Blood Count 17.9 H Test 09/27/16 14:06 Bedside Glucose 125 Medications Medications Current Medications Salmeterol Xinafoate/ Fluticasone (Advair 250/50 Diskus) 1 inh BID INH Last administered on 09/27/16 09:13; Admin Dose 1 INH; Start 09/20/16 at 09:00 Tiotropium [place] (Spiriva) 1 inh DAILY INH Last administered on 09/27/16 09: 13; Admin Dose 1 INH; Start 09/20/16 at 09:00 Dorzolamide/ Timolol (Cosopt) 1 drop BID LEFT EYE Last administered on 09:12; Admin Dose 1 DROP; Start 09/20/16 at 13:30 Latanoprost (Xalatan) 1 drop DAILY LEFT EYE Last administered on 09/27/16 09: 14; Admin Dose 1 DROP; Start 09/20/16 at 13:30 Ondansetron HCl (Zofran Inj) 4 mg Q6H PRN IV NAUSEA AND/OR VOMITING Last administered on 09/23/16 07:59; Admin Dose 4 MG; Start 09/20/16 at 20:30 Pantoprazole (Protonix Iv) 40 mg DAILY@06 IV Last administered on 09/27/16 05: 26; Admin Dose 40 MG; Start 09/21/16 at 06:00 IV Flush (NS 10 ml) 10 ml PRN PRN IV IV PROTOCOL; Start 09/21/16 at 17:30 Acetaminophen (Tylenol Liquid) 650 mg Q6H PRN NGT PAIN AND OR ELEVATED TEMP Last administered on 09/22/16 09:09; Admin Dose 650 MG; Start 09/22/16 at 00:20 Enoxaparin Sodium 30 mg 30 mg DAILY SC Last administered on 09/27/16 09:40; Admin Dose 30 MG; Start 09/23/16 at 09:00 Piperacillin Sod/ Tazobactam Sod 50 ml @ 200 mls/hr Q6 IVPB Last administered on 09/27/16 11:44; Admin Dose 200 MLS/HR; Start 09/22/16 at 12:00 Fluconazole/ Sodium Chloride 50 ml @ 50 mls/hr Q24H IVPB Last administered on 16:49; Admin Dose 50 MLS/HR; Start 09/22/16 at 16:00 Total Parenteral Nutrition 1,000 ml @ 75 mls/hr [id number] IV Last administered on 09/27/16 11:50; Admin Dose 75 MLS/HR; Start 09/25/16 at 15:00 Fat Emulsion Intravenous (Liposyn Ii 20%) 500 ml @ 20.833 mls/ hr Q24H IV Last administered on 09/26/16 16:52; Admin Dose 20.833 MLS/HR; Start 09/25/16 at 15:00 Morphine Sulfate (morphine) 1 mg Q2H PRN IV PAIN Last administered on 12:27; Admin Dose 1 MG; Start 09/26/16 at 19:54 Diagnostic Test (Pha) (Accucheck) 1 ea Q4 XX Last administered on 09/27/16 05: 29; Admin Dose 1 EA; Start 09/27/16 at 01:00 Hydralazine HCl (Apresoline) 10 mg Q6H PRN IV for sbp>160 Last administered on 09/27/16 08:11; Admin Dose 10 MG; Start 09/27/16 at 08:00 Ketorolac Tromethamine (Toradol) 15 mg Q6H IV Last administered on 09/27/16 09 :36; Admin Dose 15 MG; Start 09/27/16 at 09:00; Stop 09/29/16 at 03:01 YAMILE LARA MD Sep 27, 2016 15:31
[2016-09-27] MEDS: FAT EMULSION 20% 500 ML IV SCH (16:00)
[2016-09-27] MEDS: FLUCONAZOLE 100 MG/NS (PMX) 50 ML IVPB SCH (16:03)
--- NOTE | 2016-09-27 16:07 | RADRPT ---
PROCEDURE: CT Abdomen and Pelvis with contrast. CLINICAL INDICATION: Abdomen and pelvis pain. Postop. TECHNIQUE: CT scan of the abdomen and pelvis with contrast was performed. The patient was scanned following the uncomplicated intravenous administration of 99 cc of Visipaque 320. Coronal and sagit portia reformatted images were obtained from the axial source images. Images were reviewed on a [employer] solution PACS workstation. Total exam DLP is 823.63 mGy-cm. CTDIvol is 15.19 mGy. One or more of the following dose reduction techniques were used: Automated exposure control, adjustment of the mA and/or kV according to patient size, use of iterative reconstruction technique. COMPARISON: Contrast enhanced CT scan of the abdomen and pelvis dated 09/19/2016. FINDINGS: There are new moderate bilateral pleural effusions. Atelectasis is present at the lung bases steam blocker iorly and there are changes consistent with emphysema. The lung bases are otherwise normal. There is no pericardial effusion. There is coronary artery calcification. The heart size is normal. The liver is normal in size and attenuation. There are several small benign hepatic cysts, unchange d. The gallbladder and bile ducts are normal. The spleen is normal in size. There is no focal splenic lesion. Both adrenals are normal with no enlargement or mass. The pancreas is unremarkable with no mass or evidence of pancreatitis. Both kidneys demonstrate normal contrast enhancement. There is no solid renal mass or hydronephros is. There are small benign bilateral renal cysts. The abdominal aorta is not dilated. There is calcification in the aorta consistent with atheroscler osis. There is no retroperitoneal lymphadenopathy or mass. There is no pelvic lymphadenopathy. There are fluid collections in the pelvis consistent with absce sses with an anterior superior right fluid collection measuring 4.1 x 6.2 cm, midline interloop absc ess measuring 4.0 x 6.3 cm, and a left cul-de-sac abscess measuring 2.5 x 4.5 cm. There is gas and fluid in the colon. Surgical clips and vandana are present in the right lower quad rant from previous appendectomy. A possible appendicolith is present in the right lower pelvis, unc hanged. Surgical vandana are present from interval bowel resection. The bladder and distal ureters are normal. Midline abdominal wound is noted from the interval surgery. There are degenerative changes of the lower lumbar spine. There is no fracture or lytic lesion. IMPRESSION: 1. New moderate bilateral pleural effusions. 2. Atelectasis at the lung bases posteriorly. 3. Emphysema. 4. Coronary artery calcification. 5. Benign hepatic cysts. 6. Benign renal cysts. 7. Atherosclerosis. 8. Multiple abscesses in the pelvis. 9. Previous appendectomy and small bowel resections. 10. Degenerative changes of the lower lumbar spine. Call report: A call report of the findings was made to Dr. Quinn on 09/27/2016 at 1540 hours. RPTAT: QQ .Elvis Henderson MD, MD Date Time Electronically viewed and signed by .Elvis Henderson MD, MD on 09/27/2016 16:07 .R/
[2016-09-27 19:03] VITALS: BP 151/72; PULSE 86
--- NOTE | 2016-09-27 19:37 | PN ---
DATE: 09/27/2016 SUBJECTIVE: Ms. Aguila is now postop day 7 from a small bowel resection. She states she is hungr y, but she still has not had flatus or a bowel movement. She is currently afebrile. Vital signs st able. Her urine output today has been over 3 liters. OBJECTIVE: ABDOMEN: Soft, mildly distended. Her wound is clean with packing in place, but no erythema or shalini ration. LABORATORY DATA: Today reveal white count of 18, hematocrit of 27, and platelets of 188. Sodium 13 7, potassium 3.3, chloride 101, CO2 of 28, BUN and creatinine 22 and 1, and glucose of 132. She did undergo CT of her abdomen and pelvis today, revealed moderate bilateral pleural effusions, there ar e multiple fluid collections in the pelvis consistent with abscesses. There is further gas and flui d in the colon. ASSESSMENT AND PLAN: Ms. Aguila is postop day 7 from a small bowel resection. 1. Ileus seems to be resolving per CT scan. 2. Will undergo IR drainage tomorrow of her pelvic collections, which hopefully will resolve her wh ite count. 3. Continue TPN until ileus resolves. 4. Slowly improving. Dictated By: TRISTAN DHALIWAL MD MAL/NTS Conf#: [id number] DID#: [id number] CC: LISA ENGLISH MD;*EndCC*
[2016-09-27 20:32] VITALS: BP 149/69; RESP 18
[2016-09-27] MEDS: ZOLPIDEM 5 MG TAB PO PRN (22:44)
[2016-09-28] MEDS: ACCUCHECK XX SCH ×4 (00:35→19:00)
[2016-09-28] MEDS: PIPER-TAZO 2.25 GM (PMX) 50 ML IVPB SCH ×4 (00:35→18:24)
[2016-09-28] MEDS: TPN 1,000 ML IV SCH ×2 (01:45→09:40)
[2016-09-28] MEDS: KETOROLAC 15 MG INJ IV SCH ×4 (03:00→21:24)
[2016-09-28] MEDS: PANTOPRAZOLE 40 MG INJ IV SCH (05:55)
[2016-09-28] MEDS: morphine 2 MG INJ IV PRN (05:55)
[2016-09-28 06:35] LABS: HEMATOCRIT 24.6 % (37.0-47.0); HEMOGLOBIN 7.9 g/dl (12.0-16.0); MEAN CORPUSCULAR HEMOGLOBIN 28.6 pg (29.0-33.0); MEAN CORPUSCULAR HGB CONC 32.1 g/dl (32.0-37.0); MEAN CORPUSCULAR VOLUME 89.1 fl (82.0-101.0); RED BLOOD COUNT 2.76 10^6/ul (4.20-5.40); WHITE BLOOD COUNT 14.5 10^3/ul (4.8-10.8)
[2016-09-28 06:36] LABS: BASOPHILS % 0.2 % (0.0-2.0); EOSINOPHILS # 0.5 10^3/ul (0.0-0.5); EOSINOPHILS % 3.5 % (0.0-7.0); LYMPHOCYTES # 1.1 10^3/ul (0.8-2.9); LYMPHOCYTES % 7.7 % (15.0-51.0); MEAN PLATELET VOLUME 10.8 fl (7.4-10.4); MONOCYTE # 1.4 10^3/ul (0.3-0.9); MONOCYTES % 9.3 % (0.0-11.0); NEUTROPHIL # 11.1 10^3/ul (1.6-7.5); NEUTROPHILS % 77.1 % (39.0-77.0); PLATELET COUNT 198 10^3/UL (140-440); RED CELL DISTRIBUTION WIDTH 15.8 % (11.5-14.5)
[2016-09-28 08:03] VITALS: BP 161/70; RESP 21
[2016-09-28] MEDS: DORZOLAMIDE/TIMOLOL 10 ML OPH LEFT EYE SCH ×2 (08:44→21:32)
[2016-09-28] MEDS: TIOTROPIUM 18 MCG CAPSULE INHA DEV INH SCH (08:45)
[2016-09-28] MEDS: SALMETEROL/FLUTICASONE 250/50 INHA INH SCH ×2 (08:45→21:32)
[2016-09-28] MEDS: ENOXAPARIN 30 MG/0.3 ML SYG SC SCH (08:45)
[2016-09-28] MEDS: LATANOPROST 0.005% 2.5 ML OPH LEFT EYE SCH (08:45)
--- NOTE | 2016-09-28 09:45 | CONS ---
Date/Time of Note Date/Time of Note DATE: 09/28/16 TIME: 09:44 Assessment/Plan Assessment/Plan Additional Assessment/Plan 1. Sepsis. 2. Acute kidney injury secondary to acute tubular necrosis from sepsis. 3. Acute hyperkalemia with metabolic acidosis likely secondary to acute kidney injury.- now resolved to hypokalemia 4. Small bowel obstructions status post exploratory laparotomy and abdominal washout 5. History of recent laparoscopic appendectomy. 6. History of hypertension 7. History of chronic obstructive pulmonary disease. 8. History of hypothyroidism. PLAN: BUN/Cr imrpoving to 1.02 , U/o good - no labs today to review, will order BMP for tomorrow will follow up Consultation Date/Type/Reason Admit Date/Time Sep 19, 2016 at 22:10 Initial Consult Date Sep Type of Consultation: NEPHROLOGY Reason for Consultation Acute kidney injury, Hyperkalemia Referring Provider: YAMILE LARA MD 24 HR Interval Summary Free Text/Dictation no chemistry today, cr better yesterday, K normal Exam/Review of Systems Vital Signs Vitals Vital Signs Date Time Temp Pulse Resp B/P Pulse Ox O2 Delivery O2 Flow Rate FiO2 09/28/16 08:03 98.1 93 21 161/70 97 09/28/16 08:00 Nasal Cannula 4.0 09/26/16 21:46 32 Intake and Output 09/27/16 09/27/16 09/28/16 15:00 23:00 07:00 Intake Total 450 ml 975 ml 1080 ml Output Total 300 ml Balance 450 ml 675 ml 1080 ml Results Result Diagram: 09/28/16 0505 09/27/16 0550 Results 24 hrs Laboratory Tests Test 09/27/16 14:06 09/27/16 18:06 09/27/16 21:23 09/28/16 00:28 Bedside Glucose 125 125 122 118 Test 09/28/16 05:05 09/28/16 07:38 Basophils # 0.0 Basophils % 0.2 Eosinophils # 0.5 Eosinophils % 3.5 Hematocrit 24.6 L Hemoglobin 7.9 L Lymphocytes # 1.1 Lymphocytes % 7.7 L Mean Corpuscular Hemoglobin 28.6 L Mean Corpuscular Hemoglobin Concent 32.1 Mean Corpuscular Volume 89.1 Mean Platelet Volume 10.8 #H Monocytes # 1.4 H Monocytes % 9.3 Neutrophils # 11.1 H Neutrophils % 77.1 H Nucleated Red Blood Cells # 0.0 Nucleated Red Blood Cells % 0.0 Platelet Count 198 Red Blood Count 2.76 L Red Cell Distribution Width 15.8 H White Blood Count 14.5 H Bedside Glucose 124 Medications Medications Current Medications Salmeterol Xinafoate/ Fluticasone (Advair 250/50 Diskus) 1 inh BID INH Last administered on 09/28/16 08:45; Admin Dose 1 INH; Start 09/20/16 at 09:00 Tiotropium [place] (Spiriva) 1 inh DAILY INH Last administered on 09/28/16 08: 45; Admin Dose 1 INH; Start 09/20/16 at 09:00 Dorzolamide/ Timolol (Cosopt) 1 drop BID LEFT EYE Last administered on 08:44; Admin Dose 1 DROP; Start 09/20/16 at 13:30 Latanoprost (Xalatan) 1 drop DAILY LEFT EYE Last administered on 09/28/16 08: 45; Admin Dose 1 DROP; Start 09/20/16 at 13:30 Ondansetron HCl (Zofran Inj) 4 mg Q6H PRN IV NAUSEA AND/OR VOMITING Last administered on 09/23/16 07:59; Admin Dose 4 MG; Start 09/20/16 at 20:30 Pantoprazole (Protonix Iv) 40 mg DAILY@06 IV Last administered on 09/28/16 05: 55; Admin Dose 40 MG; Start 09/21/16 at 06:00 IV Flush (NS 10 ml) 10 ml PRN PRN IV IV PROTOCOL; Start 09/21/16 at 17:30 Acetaminophen (Tylenol Liquid) 650 mg Q6H PRN NGT PAIN AND OR ELEVATED TEMP Last administered on 09/22/16 09:09; Admin Dose 650 MG; Start 09/22/16 at 00:20 Enoxaparin Sodium 30 mg 30 mg DAILY SC Last administered on 09/27/16 09:40; Admin Dose 30 MG; Start 09/23/16 at 09:00 Piperacillin Sod/ Tazobactam Sod 50 ml @ 200 mls/hr Q6 IVPB Last administered on 09/28/16 05:56; Admin Dose 200 MLS/HR; Start 09/22/16 at 12:00 Fluconazole/ Sodium Chloride 50 ml @ 50 mls/hr Q24H IVPB Last administered on 16:03; Admin Dose 50 MLS/HR; Start 09/22/16 at 16:00 Total Parenteral Nutrition 1,000 ml @ 75 mls/hr [id number] IV Last administered on 09/28/16 09:40; Admin Dose 75 MLS/HR; Start 09/25/16 at 15:00 Fat Emulsion Intravenous (Liposyn Ii 20%) 500 ml @ 20.833 mls/ hr Q24H IV Last administered on 09/27/16 16:00; Admin Dose 20.833 MLS/HR; Start 09/25/16 at 15:00 Morphine Sulfate (morphine) 1 mg Q2H PRN IV PAIN Last administered on 05:55; Admin Dose 1 MG; Start 09/26/16 at 19:54 Hydralazine HCl (Apresoline) 10 mg Q6H PRN IV for sbp>160 Last administered on 09/27/16 08:11; Admin Dose 10 MG; Start 09/27/16 at 08:00 Ketorolac Tromethamine (Toradol) 15 mg Q6H IV Last administered on 09/28/16 08 :45; Admin Dose 15 MG; Start 09/27/16 at 09:00; Stop 09/29/16 at 03:01 Diagnostic Test (Pha) (Accucheck) 1 ea Q6H XX ; Start 09/28/16 at 07:00 MADISYN MANUEL MD Sep 28, 2016 09:45
--- NOTE | 2016-09-28 10:48 | CONS ---
Date/Time of Note Date/Time of Note DATE: 09/28/16 TIME: 10:46 Assessment/Plan Assessment/Plan Chief Complaint/Hosp Course Small bowel obstruction with abdominal abscess status post repeat surgery Shock, possibly sepsis versus hypovolemic, resolved Acute blood loss anemia Diastolic congestive heart failure Acute appendicitis status post surgery Preserved ejection fraction Hypertension Acute kidney injury improved Problems: Additional Assessment/Plan check BNP Consultation Date/Type/Reason Admit Date/Time Sep 19, 2016 at 22:10 Initial Consult Date Type of Consultation: cv Referring Provider: YAMILE LARA MD 24 HR Interval Summary Free Text/Dictation no chest pain, no sob, able to lie supine, Detailed Summary Respiratory: no complaints Cardiovascular: no complaints Gastrointestinal: decreased appetite, pain Musculoskeletal: no complaints Neurologic: no complaints Endocrine: no complaints Exam/Review of Systems Vital Signs Vitals Vital Signs Date Time Temp Pulse Resp B/P Pulse Ox O2 Delivery O2 Flow Rate FiO2 09/28/16 08:03 98.1 93 21 161/70 97 09/28/16 08:00 Nasal Cannula 4.0 09/26/16 21:46 32 Intake and Output 09/27/16 09/27/16 09/28/16 15:00 23:00 07:00 Intake Total 450 ml 975 ml 1080 ml Output Total 300 ml Balance 450 ml 675 ml 1080 ml Exam Constitutional: alert, oriented Head: atraumatic, normocephalic Neck: supple Respiratory: clear to auscultation Cardiovascular: regular rate and rhythm Gastrointestinal: surgical scars Musculoskeletal: nl extremities to inspection Extremities: normal pulses Results Result Diagram: 09/28/16 0505 09/27/16 0550 Results 24 hrs Laboratory Tests Test 09/27/16 14:06 09/27/16 18:06 09/27/16 21:23 09/28/16 00:28 Bedside Glucose 125 125 122 118 Test 09/28/16 05:05 09/28/16 07:38 Basophils # 0.0 Basophils % 0.2 Eosinophils # 0.5 Eosinophils % 3.5 Hematocrit 24.6 L Hemoglobin 7.9 L Lymphocytes # 1.1 Lymphocytes % 7.7 L Mean Corpuscular Hemoglobin 28.6 L Mean Corpuscular Hemoglobin Concent 32.1 Mean Corpuscular Volume 89.1 Mean Platelet Volume 10.8 #H Monocytes # 1.4 H Monocytes % 9.3 Neutrophils # 11.1 H Neutrophils % 77.1 H Nucleated Red Blood Cells # 0.0 Nucleated Red Blood Cells % 0.0 Platelet Count 198 Red Blood Count 2.76 L Red Cell Distribution Width 15.8 H White Blood Count 14.5 H Bedside Glucose 124 Medications Medications Current Medications Salmeterol Xinafoate/ Fluticasone (Advair 250/50 Diskus) 1 inh BID INH Last administered on 09/28/16 08:45; Admin Dose 1 INH; Start 09/20/16 at 09:00 Tiotropium [place] (Spiriva) 1 inh DAILY INH Last administered on 09/28/16 08: 45; Admin Dose 1 INH; Start 09/20/16 at 09:00 Dorzolamide/ Timolol (Cosopt) 1 drop BID LEFT EYE Last administered on 08:44; Admin Dose 1 DROP; Start 09/20/16 at 13:30 Latanoprost (Xalatan) 1 drop DAILY LEFT EYE Last administered on 09/28/16 08: 45; Admin Dose 1 DROP; Start 09/20/16 at 13:30 Ondansetron HCl (Zofran Inj) 4 mg Q6H PRN IV NAUSEA AND/OR VOMITING Last administered on 09/23/16 07:59; Admin Dose 4 MG; Start 09/20/16 at 20:30 Pantoprazole (Protonix Iv) 40 mg DAILY@06 IV Last administered on 09/28/16 05: 55; Admin Dose 40 MG; Start 09/21/16 at 06:00 IV Flush (NS 10 ml) 10 ml PRN PRN IV IV PROTOCOL; Start 09/21/16 at 17:30 Acetaminophen (Tylenol Liquid) 650 mg Q6H PRN NGT PAIN AND OR ELEVATED TEMP Last administered on 09/22/16 09:09; Admin Dose 650 MG; Start 09/22/16 at 00:20 Enoxaparin Sodium 30 mg 30 mg DAILY SC Last administered on 09/27/16 09:40; Admin Dose 30 MG; Start 09/23/16 at 09:00 Piperacillin Sod/ Tazobactam Sod 50 ml @ 200 mls/hr Q6 IVPB Last administered on 09/28/16 05:56; Admin Dose 200 MLS/HR; Start 09/22/16 at 12:00 Fluconazole/ Sodium Chloride 50 ml @ 50 mls/hr Q24H IVPB Last administered on 16:03; Admin Dose 50 MLS/HR; Start 09/22/16 at 16:00 Total Parenteral Nutrition 1,000 ml @ 75 mls/hr [id number] IV Last administered on 09/28/16 09:40; Admin Dose 75 MLS/HR; Start 09/25/16 at 15:00 Fat Emulsion Intravenous (Liposyn Ii 20%) 500 ml @ 20.833 mls/ hr Q24H IV Last administered on 09/27/16 16:00; Admin Dose 20.833 MLS/HR; Start 09/25/16 at 15:00 Morphine Sulfate (morphine) 1 mg Q2H PRN IV PAIN Last administered on 05:55; Admin Dose 1 MG; Start 09/26/16 at 19:54 Hydralazine HCl (Apresoline) 10 mg Q6H PRN IV for sbp>160 Last administered on 09/27/16 08:11; Admin Dose 10 MG; Start 09/27/16 at 08:00 Ketorolac Tromethamine (Toradol) 15 mg Q6H IV Last administered on 09/28/16 08 :45; Admin Dose 15 MG; Start 09/27/16 at 09:00; Stop 09/29/16 at 03:01 Diagnostic Test (Pha) (Accucheck) 1 ea Q6H XX ; Start 09/28/16 at 07:00 TAO KERN MD Sep 28, 2016 10:47
--- NOTE | 2016-09-28 12:36 | PN ---
DATE: 09/28/2016 INFECTIOUS DISEASE PROGRESS NOTE SUBJECTIVE: The patient is alert, lying comfortably in bed. Complaining of abdominal discomfort. No fevers, no diarrhea. VITAL SIGNS: Temperature 98.1. LABORATORY DATA: WBC 14.5, platelets 198, neutrophils 77.1. BUN 22, creatinine 1.02. ANTIMICROBIALS 1. Zosyn. 2. Flagyl. PHYSICAL EXAMINATION: GENERAL: This is a fragile, elderly woman who is alert, in no distress. HEENT: Head atraumatic, normocephalic. Sclerae anicteric. Buccal mucosa pink. NECK: Supple, trachea midline. CHEST: Rise symmetrical. Breath sounds clear. HEART: S1, S2. ABDOMEN: Soft. Bowel sounds present. She has mild tenderness on palpation. EXTREMITIES: Without cyanosis or edema. ASSESSMENT: 1. Systemic inflammatory response syndrome with persistent leukocytosis secondary to #2. 2. Multiple pelvic abscesses as per CT of the abdomen. 3. Status post exploratory laparotomy, small bowel resection and abscess drainage on 09/20/2006. 4. Chronic obstructive pulmonary disease. 5. Acute on chronic kidney disease. PLAN: The patient remains stable, per surgical note scheduled for CT-guided drainage of pelvic collections. She is on TPN secondary to ileus. She is being followed by multiple consultants. We will keep her on current antibiotics. Dictated By: YASMANY BECERRA FISH SALTER for THOMAS WEBSTER/VU Conf#: [id number] DID#: [id number] MTDD
--- NOTE | 2016-09-28 13:10 | PN ---
Date/Time of Note Date/Time of Note DATE: 09/28/16 TIME: 13:04 Assessment/Plan VTE Prophylaxis VTE Prophylaxis Intervention: SCD's Lines/Catheters IV [facility] PICC Line Central line still needed: Yes Urinary Cath still in place: No Assessment/Plan Chief Complaint/Hosp Course Assessment/Plan 1. Small bowel obstruction s/p Recent Laproscopic Appendectomy Status post small bowel resection x2. Continue postsurgical care, pain management and IV antibiotics Diet as per general surgery recommendations Abdominal x-ray negative for obstruction 2. Sepsis Likely secondary to intra-abdominal abscess and postoperatively infectious disease doctor has been consulted, continue Zosyn and Flagyl Follow-up blood culture, continue aggressive IV fluids 3. Hyperkalemia Resolved status post IV fluid, nephrology has been consulted, follow-up electrolytes in a.m. 4 . Abdominal abscess x3 . Status post drainage by interventional radiologist and Diagnostic laparoscopy, Exploratory laparotomy and abdominal washout. Plan for CT-guided drainage by interventional radiologist today 09/28/2016 , continue aggressive IV antibiotics Follow-up with general surgery recommendations 3. COPD 4. History of hypertension Stable 5. Hyperlipidemia 6. Hypothyroidism We will continue monitor patient closely for recommendation management treatment as clinical course Problems: Subjective 24 Hr Interval Summary Free Text/Dictation Patient continues to complain of having abdominal discomfort and distention N.p.o. Denies of any chest pain or shortness of breath Complains of having generalized body ache Exam/Review of Systems Vital Signs Vitals Vital Signs Date Time Temp Pulse Resp B/P Pulse Ox O2 Delivery O2 Flow Rate FiO2 09/28/16 08:03 98.1 93 21 161/70 97 09/28/16 08:00 Nasal Cannula 4.0 09/26/16 21:46 32 Intake and Output 09/27/16 09/27/16 09/28/16 15:00 23:00 07:00 Intake Total 450 ml 975 ml 1080 ml Output Total 300 ml Balance 450 ml 675 ml 1080 ml Exam General: The patient is well-developed, Not in moderate distress secondary to abdominal discomfort. HEENT: Atraumatic, normocephalic. The pupils are equal and round . Neck: Supple with full range of motion. Chest: Normal expansion of the thorax during inspiration Lungs: Clear to auscultation bilaterally Heart: Normal S1-S2, Regular rhythm and rate. Abdomen: Soft , moderately tender lower abdominal region, nondistended , bowel sounds are present. Surgical site is dry and clean Extremities: Normal to inspection, no edema no cyanosis Neurologic: Normal mental status,The patient is awake, alert and oriented . Results Result Diagram: 09/28/16 0505 09/27/16 0550 Results 24 hrs Laboratory Tests Test 09/27/16 14:06 09/27/16 18:06 09/27/16 21:23 09/28/16 00:28 Bedside Glucose 125 125 122 118 Test 09/28/16 05:05 09/28/16 07:38 09/28/16 11:57 B-Type Natriuretic Peptide 1300 H Basophils # 0.0 Basophils % 0.2 Eosinophils # 0.5 Eosinophils % 3.5 Hematocrit 24.6 L Hemoglobin 7.9 L Lymphocytes # 1.1 Lymphocytes % 7.7 L Mean Corpuscular Hemoglobin 28.6 L Mean Corpuscular Hemoglobin Concent 32.1 Mean Corpuscular Volume 89.1 Mean Platelet Volume 10.8 #H Monocytes # 1.4 H Monocytes % 9.3 Neutrophils # 11.1 H Neutrophils % 77.1 H Nucleated Red Blood Cells # 0.0 Nucleated Red Blood Cells % 0.0 Platelet Count 198 Red Blood Count 2.76 L Red Cell Distribution Width 15.8 H White Blood Count 14.5 H Bedside Glucose 124 131 Medications Medications Current Medications Salmeterol Xinafoate/ Fluticasone (Advair 250/50 Diskus) 1 inh BID INH Last administered on 09/28/16 08:45; Admin Dose 1 INH; Start 09/20/16 at 09:00 Tiotropium [place] (Spiriva) 1 inh DAILY INH Last administered on 09/28/16 08: 45; Admin Dose 1 INH; Start 09/20/16 at 09:00 Dorzolamide/ Timolol (Cosopt) 1 drop BID LEFT EYE Last administered on 08:44; Admin Dose 1 DROP; Start 09/20/16 at 13:30 Latanoprost (Xalatan) 1 drop DAILY LEFT EYE Last administered on 09/28/16 08: 45; Admin Dose 1 DROP; Start 09/20/16 at 13:30 Ondansetron HCl (Zofran Inj) 4 mg Q6H PRN IV NAUSEA AND/OR VOMITING Last administered on 09/23/16 07:59; Admin Dose 4 MG; Start 09/20/16 at 20:30 Pantoprazole (Protonix Iv) 40 mg DAILY@06 IV Last administered on 09/28/16 05: 55; Admin Dose 40 MG; Start 09/21/16 at 06:00 IV Flush (NS 10 ml) 10 ml PRN PRN IV IV PROTOCOL; Start 09/21/16 at 17:30 Acetaminophen (Tylenol Liquid) 650 mg Q6H PRN NGT PAIN AND OR ELEVATED TEMP Last administered on 09/22/16 09:09; Admin Dose 650 MG; Start 09/22/16 at 00:20 Enoxaparin Sodium 30 mg 30 mg DAILY SC Last administered on 09/27/16 09:40; Admin Dose 30 MG; Start 09/23/16 at 09:00 Piperacillin Sod/ Tazobactam Sod 50 ml @ 200 mls/hr Q6 IVPB Last administered on 09/28/16 11:52; Admin Dose 200 MLS/HR; Start 09/22/16 at 12:00 Fluconazole/ Sodium Chloride 50 ml @ 50 mls/hr Q24H IVPB Last administered on 16:03; Admin Dose 50 MLS/HR; Start 09/22/16 at 16:00 Total Parenteral Nutrition 1,000 ml @ 75 mls/hr [id number] IV Last administered on 09/28/16 09:40; Admin Dose 75 MLS/HR; Start 09/25/16 at 15:00 Fat Emulsion Intravenous (Liposyn Ii 20%) 500 ml @ 20.833 mls/ hr Q24H IV Last administered on 09/27/16 16:00; Admin Dose 20.833 MLS/HR; Start 09/25/16 at 15:00 Morphine Sulfate (morphine) 1 mg Q2H PRN IV PAIN Last administered on 05:55; Admin Dose 1 MG; Start 09/26/16 at 19:54 Hydralazine HCl (Apresoline) 10 mg Q6H PRN IV for sbp>160 Last administered on 09/27/16 08:11; Admin Dose 10 MG; Start 09/27/16 at 08:00 Ketorolac Tromethamine (Toradol) 15 mg Q6H IV Last administered on 09/28/16 08 :45; Admin Dose 15 MG; Start 09/27/16 at 09:00; Stop 09/29/16 at 03:01 Diagnostic Test (Pha) (Accucheck) 1 ea Q6H XX ; Start 09/28/16 at 07:00 YAMILE LARA MD Sep 28, 2016 13:10
[2016-09-28] MEDS ORDERED: DIPHENHYDRAMINE 50 MG INJ ONE (13:14)
[2016-09-28] MEDS ORDERED: FENTAnyl 50 MCG/ML VIAL ONE (13:14)
[2016-09-28] MEDS ORDERED: MIDAZOLAM 1 MG/ML 2 ML INJ ONE (13:14)
[2016-09-28] MEDS ORDERED: SOD CHLORIDE 0.9% 500 ML ONE (13:15)
[2016-09-28 13:50] VITALS: BP 143/65; PULSE 88; RESP 20
--- NOTE | 2016-09-28 14:47 | RADRPT ---
PROCEDURE: CT guided pelvic drainage. CLINICAL INDICATION: Pelvic pain. TECHNIQUE: Informed consent was obtained. The procedure, risks, benefits, complications and alternatives were explained to the patient. Risks including bleeding and infection were explained. The patient underst ood and was willing to proceed. A procedural pause was performed. The patient's name, date of , and procedure to be performed were verified. One or more of the following dose reduction techniq ues were used: Automated exposure control, adjustment of the mA and/or kV according to patient size, use of iterative reconstruction technique. Using local anesthetic, sterile technique and CT guidance, a 19-gauge Yueh needle was advanced into the fluid collection in the right side of the pelvis anteriorly. CT scan was performed confirming p osition. Cloudy serous fluid was also aspirated confirming position. The needle from the Yueh cath eter was removed, leaving the Yueh catheter in place within the fluid collection. A 0.035-inch Ampl richar guidewire was advanced through the Yueh catheter into the fluid collection. The Yueh catheter w as removed. The tract was dilated to 8-Croatian. An 8.5 Croatian multipurpose drainage catheter was ad vanced over the guidewire into the fluid collection. The guidewire was removed. Additional scannin g was performed confirming position. The catheter was then sutured to the patient's skin with 2-0 s ilk. Approximately 34 ml of cloudy serous fluid was aspirated. The catheter was connected to a jyoti inage bag. A dressing was applied. The patient tolerated procedure well. COMPARISON: CT scan of the abdomen and pelvis dated 09/27/2016. FINDINGS: Final images demonstrate the drainage catheter in satisfactory position within the fluid collection. IMPRESSION: 1. Successful CT guided pelvic fluid collection drainage. RPTAT: QQ .Elvis Henderson MD, Date Time Electronically viewed and signed by .Elvis Henderson MD, on 09/28/2016 14:47 .R/
[2016-09-28] MEDS: FAT EMULSION 20% 500 ML IV SCH (15:28)
[2016-09-28] MEDS: FLUCONAZOLE 100 MG/NS (PMX) 50 ML IVPB SCH (15:41)
[2016-09-28] MEDS ORDERED: OXYCODONE/ACETAMINOPHEN (5/325) TAB PO PRN (20:30)
[2016-09-28 20:45] VITALS: BP 133/63; RESP 20
[2016-09-28] MEDS: metroNIDAZOLE 500 MG TAB PO SCH (21:24)
[2016-09-28] MEDS: ZOLPIDEM 5 MG TAB PO PRN (22:31)
[2016-09-29] VITALS (8 sets, daily range): BP systolic 99–192; BP diastolic 52–79; PULSE 90–104; RESP 16–20
--- NOTE | 2016-09-29 00:07 | PN ---
DATE: 09/28/2016 Ms. Aguila is postoperative day 8 from a small bowel resection. The patient is now having multiple bowel movements and passing flatus. She is tolerating clears well. She is currently afebrile. PHYSICAL EXAMINATION: VITAL SIGNS: Stable. Her urine output has been multiple. She had multiple BMs today. ABDOMEN: Soft, nontender, nondistended. LABORATORY DATA: Today reveal a white count of 15, hematocrit 25 and platelets of 198. She did not have a chemistry today. IMAGING: She did have a CT-guided drainage today which contained 35 mL of cloudy serous fluid. ASSESSMENT AND PLAN: 1. Mr. Aguila is an 86-year-old female postop day 8 from a small-bowel obstruction. 2. Ileus has resolved. We will advance her diet to regular. Will discontinue her TPN. 3. We will discontinue her Zosyn and fluconazole. I wrote for Levaquin and Flagyl. 4. Discontinue intravenous Protonix. 5. Her wound looks clean and we will stop packing today as well. 6. Should be stable to transfer in a few days to rehabilitation. Dictated By: TRISTAN MYLES/NTS Conf#: [id number] DID#: [id number] MTDD
[2016-09-29] MEDS: OXYCODONE/ACETAMINOPHEN (5/325) TAB PO PRN ×2 (01:23→18:31)
[2016-09-29] MEDS: ACCUCHECK XX SCH ×2 (01:25→07:04)
[2016-09-29] MEDS: KETOROLAC 15 MG INJ IV SCH (03:00)
[2016-09-29 05:43] LABS: ADD SCAN DIFF NO
[2016-09-29] MEDS: LEVOFLOXACIN 500 MG TAB PO SCH (05:47)
[2016-09-29] MEDS: metroNIDAZOLE 500 MG TAB PO SCH ×3 (05:47→20:42)
[2016-09-29 06:02] LABS: ABNORMAL IP MESSAGE 1; HEMATOCRIT 21.5 % (37.0-47.0); MEAN CORPUSCULAR HEMOGLOBIN 28.3 pg (29.0-33.0); MEAN CORPUSCULAR HGB CONC 32.1 g/dl (32.0-37.0); MEAN CORPUSCULAR VOLUME 88.1 fl (82.0-101.0); MEAN PLATELET VOLUME 10.5 fl (7.4-10.4); PLATELET COUNT 248 10^3/UL (140-415); RED BLOOD COUNT 2.44 10^6/ul (4.20-5.40); RED CELL DISTRIBUTION WIDTH 15.3 % (11.5-14.5); WHITE BLOOD COUNT 19.4 10^3/ul (4.8-10.8)
[2016-09-29 06:17] LABS: ALBUMIN 2.4 g/dl (3.3-4.9)
[2016-09-29 06:18] LABS: POTASSIUM 4.1 mmol/L (3.5-5.1)
[2016-09-29 06:20] LABS: ALBUMIN/GLOBULIN RATIO 0.8; CREATININE 1.2 mg/dl (0.44-1.00); TOTAL PROTEIN 5.4 g/dl (6.1-8.1)
[2016-09-29 06:21] LABS: CALCIUM 8.3 mg/dl (8.4-10.2)
[2016-09-29 06:33] LABS: INR 1.11; PROTIME 14.3 Sec (12.2-14.2); PT RATIO 1.1
[2016-09-29 07:04] LABS: MAGNESIUM 1.9 mg/dl (1.7-2.5); PHOSPHORUS 5.2 mg/dl (2.5-4.9)
[2016-09-29 07:11] LABS: HEMOGLOBIN 6.9 g/dl (12.0-16.0)
[2016-09-29 07:21] LABS: PARTIAL THROMBOPLASTIN TIME 29.8 Sec (25.0-35.0)
[2016-09-29] MEDS ORDERED: FUROSEMIDE 20 MG INJ IV SCH (08:00)
[2016-09-29 10:22] LABS: LYMPHOCYTES # 0.6 10^3/ul (0.8-2.9); MONOCYTE # 0.6 10^3/ul (0.3-0.9); NEUTROPHIL # 17.7 10^3/ul (1.6-7.5)
[2016-09-29] MEDS: SALMETEROL/FLUTICASONE 250/50 INHA INH SCH ×2 (10:28→20:42)
[2016-09-29] MEDS: DORZOLAMIDE/TIMOLOL 10 ML OPH LEFT EYE SCH ×2 (10:31→20:42)
[2016-09-29] MEDS: LATANOPROST 0.005% 2.5 ML OPH LEFT EYE SCH (10:31)
[2016-09-29 10:35] LABS: HEMATOCRIT 17.9 % (37.0-47.0)
[2016-09-29] MEDS: TIOTROPIUM 18 MCG CAPSULE INHA DEV INH SCH (10:35)
[2016-09-29 10:44] LABS: HEMOGLOBIN 5.9 g/dl (12.0-16.0)
--- NOTE | 2016-09-29 11:08 | CONS ---
Date/Time of Note Date/Time of Note DATE: 09/29/16 TIME: 11:02 Assessment/Plan Assessment/Plan Additional Assessment/Plan 1. Sepsis. 2. Acute kidney injury secondary to acute tubular necrosis from sepsis.- improved to normal then again bumped to 1.2 09/29/2016 due to severe anemia causing ischemic prerenal azotemia and ATN 3. Acute hyperkalemia with metabolic acidosis likely secondary to acute kidney injury.- now resolved 4. Small bowel obstructions status post exploratory laparotomy and abdominal washout- on TPN currently 5. History of recent laparoscopic appendectomy. 6. History of hypertension 7. History of chronic obstructive pulmonary disease. 8. History of hypothyroidism. PLAN: cr bumped to 1.2, hb dropped to5.9, toleratign PO diet so far, TPN has been discontinued yesterday Plan for 2 U PRBC transfusion making good urine, K normal, expecting Cr to improve after PRBC transfusion, AM labs has been ordered for tomorrow Consultation Date/Type/Reason Admit Date/Time Sep 19, 2016 at 22:10 Initial Consult Date Sep Type of Consultation: NEPHROLOGY Reason for Consultation Acute kidney injury, Hyperkalemia Referring Provider: YAMILE LARA MD 24 HR Interval Summary Free Text/Dictation cr bumped to 1.2, hb dropped to5.9, TPN has been discontinued yesterday, tolerating diet so far Exam/Review of Systems Vital Signs Vitals Vital Signs Date Time Temp Pulse Resp B/P Pulse Ox O2 Delivery O2 Flow Rate FiO2 09/29/16 08:12 97.8 94 20 99/55 99 09/29/16 00:19 3.0 09/28/16 20:00 Nasal Cannula 09/26/16 21:46 32 Intake and Output 09/28/16 09/28/16 09/29/16 15:00 23:00 07:00 Intake Total 980 ml Output Total 34 ml Balance -34 ml 980 ml Exam GENERAL: no acute distress HEENT: Head atraumatic, normocephalic. Sclerae anicteric. Buccal mucosa pink. NECK: Supple, trachea midline. CHEST: Rise symmetrical. Breath sounds clear. HEART: S1, S2. ABDOMEN: Soft with some tenderness on palpation. Bowel sounds present. EXTREMITIES: Without cyanosis. Results Result Diagram: 09/29/16 1025 09/29/16 0500 Results 24 hrs Laboratory Tests Test 09/28/16 11:57 09/28/16 18:57 09/29/16 01:21 09/29/16 05:00 Bedside Glucose 131 140 113 Activated Partial Thromboplast Time 29.8 Alanine Aminotransferase (ALT/SGPT) 30 Albumin 2.4 L Albumin/Globulin Ratio 0.80 Alkaline Phosphatase 80 Anion Gap 11 Aspartate Amino Transf (AST/SGOT) 32 Band Neutrophils % 2.0 Blood Urea Nitrogen 31 H Calcium Level 8.3 L Carbon Dioxide Level 28 Chloride Level 103 Creatinine 1.20 H Direct Bilirubin 0.00 Globulin 3.00 Glucose Level 89 # Hematocrit 21.5 L Hemoglobin 6.9 *L INR International Normalized Ratio 1.11 Indirect Bilirubin 0.0 Lymphocytes # 0.6 L Lymphocytes % 3.0 L Magnesium Level 1.9 Mean Corpuscular Hemoglobin 28.3 L Mean Corpuscular Hemoglobin Concent 32.1 Mean Corpuscular Volume 88.1 Mean Platelet Volume 10.5 H Metamyelocytes # 0.2 Metamyelocytes % 1.0 H Monocytes # 0.6 Monocytes % 3.0 Neutrophils # 17.7 H Neutrophils % 91.0 H Phosphorus Level 5.2 H Platelet Count 248 # Potassium Level 4.1 Prealbumin 8.2 L Prothrombin Time 14.3 H Prothrombin Time Ratio 1.1 Red Blood Count 2.44 L Red Cell Distribution Width 15.3 H Sodium Level 138 Total Bilirubin 0.0 L Total Protein 5.4 L White Blood Count 19.4 #H Test 09/29/16 06:36 09/29/16 10:25 Bedside Glucose 116 Hematocrit 17.9 L Hemoglobin 5.9 *L Medications Medications Current Medications Salmeterol Xinafoate/ Fluticasone (Advair 250/50 Diskus) 1 inh BID INH Last administered on 09/29/16 10:28; Admin Dose 1 INH; Start 09/20/16 at 09:00 Tiotropium [place] (Spiriva) 1 inh DAILY INH Last administered on 09/29/16 10: 35; Admin Dose 1 INH; Start 09/20/16 at 09:00 Dorzolamide/ Timolol (Cosopt) 1 drop BID LEFT EYE Last administered on 10:31; Admin Dose 1 DROP; Start 09/20/16 at 13:30 Latanoprost (Xalatan) 1 drop DAILY LEFT EYE Last administered on 09/29/16 10: 31; Admin Dose 1 DROP; Start 09/20/16 at 13:30 IV Flush (NS 10 ml) 10 ml PRN PRN IV IV PROTOCOL; Start 09/21/16 at 17:30 Acetaminophen (Tylenol Liquid) 650 mg Q6H PRN NGT PAIN AND OR ELEVATED TEMP Last administered on 09/22/16 09:09; Admin Dose 650 MG; Start 09/22/16 at 00:20 Enoxaparin Sodium (Lovenox) 30 mg DAILY SC Last administered on 09/27/16 09:40 ; Admin Dose 30 MG; Start 09/23/16 at 09:00; Status Future Hold Hydralazine HCl (Apresoline) 10 mg Q6H PRN IV for sbp>160 Last administered on 09/27/16 08:11; Admin Dose 10 MG; Start 09/27/16 at 08:00 Diagnostic Test (Pha) (Accucheck) 1 ea Q6H XX Last administered on 09/29/16 07 :04; Admin Dose 1 EA; Start 09/28/16 at 07:00 Levofloxacin (Levaquin) 500 mg DAILY@06 PO Last administered on 09/29/16 05:47 ; Admin Dose 500 MG; Start 09/29/16 at 06:00 Metronidazole (Flagyl) 500 mg Q8 PO Last administered on 09/29/16 05:47; Admin Dose 500 MG; Start 09/28/16 at 22:00 Oxycodone/ Acetaminophen (Percocet (5/ 325)) 1 tab Q4H PRN PO PAIN Last administered on 09/28/16 22:31; Admin Dose 1 TAB; Start 09/28/16 at 20:30 Oxycodone/ Acetaminophen 2 tab 2 tab Q6H PRN PO PAIN Last administered on 01:23; Admin Dose 2 TAB; Start 09/29/16 at 00:00 Dextrose/Sodium Chloride (D5-1/2ns) 1,000 ml @ 75 mls/hr [id number] IV ; Start at 10:30 MADISYN MANUEL MD Sep 29, 2016 11:08
--- NOTE | 2016-09-29 11:40 | PN ---
Date/Time of Note Date/Time of Note DATE: 09/29/16 TIME: 11:30 Assessment/Plan VTE Prophylaxis VTE Prophylaxis Intervention: SCD's Lines/Catheters IV Catheter Type (from Nrs): PICC Line Central line still needed: Yes Urinary Cath still in place: No Assessment/Plan Chief Complaint/Hosp Course Assessment/Plan 1. Small bowel obstruction s/p Recent Laproscopic Appendectomy Status post small bowel resection x2. Continue postsurgical care, pain management and IV antibiotics Diet as per general surgery recommendations Abdominal x-ray negative for obstruction 2. Sepsis Likely secondary to intra-abdominal abscess and postoperatively infectious disease doctor has been consulted, continue Zosyn and Flagyl Follow-up blood culture, continue aggressive IV fluids 3. Hyperkalemia Resolved status post IV fluid, nephrology has been consulted, follow-up electrolytes in a.m. 4 . Abdominal abscess x3 . Status post drainage by interventional radiologist and Diagnostic laparoscopy, Exploratory laparotomy and abdominal washout. Status post CT-guided drainage by interventional radiologist 09/28/2016 , continue aggressive IV antibiotics Follow-up with general surgery recommendations 3. COPD 4. Essential hypertension, stable 5. Acute anemia, questionable GI bleed, type and cross and transfuse 2 units of packed red blood cell, follow up hemoglobin hematocrit status post transfusion 6. Acute renal insufficiency, likely secondary to dehydration versus anemia, follow-up renal panel in a.m. nephrology has been consulted 7. Hypothyroidism 8 . Hyperlipidemia We will continue monitor patient closely for recommendation management treatment as clinical course Problems: Subjective 24 Hr Interval Summary Free Text/Dictation Patient complains of having mild abdominal discomfort Denies of any chest pain or shortness of breath Had 8 episodes of bowel movement yesterday No bowel movement today hb dropped to5.9, TPN has been discontinued yesterday, tolerating oral intake Exam/Review of Systems Vital Signs Vitals Vital Signs Date Time Temp Pulse Resp B/P Pulse Ox O2 Delivery O2 Flow Rate FiO2 09/29/16 08:12 97.8 94 20 99/55 99 09/29/16 00:19 3.0 09/28/16 20:00 Nasal Cannula 09/26/16 21:46 32 Intake and Output 09/28/16 09/28/16 09/29/16 15:00 23:00 07:00 Intake Total 980 ml Output Total 34 ml Balance -34 ml 980 ml Exam General: The patient is well-developed, Not in acute distress. HEENT: Atraumatic, normocephalic. The pupils are equal and round . Neck: Supple with full range of motion. Chest: Normal expansion of the thorax during inspiration Lungs: Clear to auscultation bilaterally Heart: Normal S1-S2, Regular rhythm and rate. Abdomen: Soft , nontender, nondistended , bowel sounds are present. Surgical site is dry and clean, drain in place Extremities: Normal to inspection, no edema no cyanosis Neurologic: Normal mental status,The patient is awake, alert and oriented . Results Result Diagram: 09/29/16 1025 09/29/16 0500 Results 24 hrs Laboratory Tests Test 09/28/16 11:57 09/28/16 18:57 09/29/16 01:21 09/29/16 05:00 Bedside Glucose 131 140 113 Activated Partial Thromboplast Time 29.8 Alanine Aminotransferase (ALT/SGPT) 30 Albumin 2.4 L Albumin/Globulin Ratio 0.80 Alkaline Phosphatase 80 Anion Gap 11 Aspartate Amino Transf (AST/SGOT) 32 Band Neutrophils % 2.0 Blood Urea Nitrogen 31 H Calcium Level 8.3 L Carbon Dioxide Level 28 Chloride Level 103 Creatinine 1.20 H Direct Bilirubin 0.00 Globulin 3.00 Glucose Level 89 # Hematocrit 21.5 L Hemoglobin 6.9 *L INR International Normalized Ratio 1.11 Indirect Bilirubin 0.0 Lymphocytes # 0.6 L Lymphocytes % 3.0 L Magnesium Level 1.9 Mean Corpuscular Hemoglobin 28.3 L Mean Corpuscular Hemoglobin Concent 32.1 Mean Corpuscular Volume 88.1 Mean Platelet Volume 10.5 H Metamyelocytes # 0.2 Metamyelocytes % 1.0 H Monocytes # 0.6 Monocytes % 3.0 Neutrophils # 17.7 H Neutrophils % 91.0 H Phosphorus Level 5.2 H Platelet Count 248 # Potassium Level 4.1 Prealbumin 8.2 L Prothrombin Time 14.3 H Prothrombin Time Ratio 1.1 Red Blood Count 2.44 L Red Cell Distribution Width 15.3 H Sodium Level 138 Total Bilirubin 0.0 L Total Protein 5.4 L White Blood Count 19.4 #H Test 09/29/16 06:36 09/29/16 10:25 Bedside Glucose 116 Hematocrit 17.9 L Hemoglobin 5.9 *L Medications Medications Current Medications Salmeterol Xinafoate/ Fluticasone (Advair 250/50 Diskus) 1 inh BID INH Last administered on 09/29/16 10:28; Admin Dose 1 INH; Start 09/20/16 at 09:00 Tiotropium [place] (Spiriva) 1 inh DAILY INH Last administered on 09/29/16 10: 35; Admin Dose 1 INH; Start 09/20/16 at 09:00 Dorzolamide/ Timolol (Cosopt) 1 drop BID LEFT EYE Last administered on 10:31; Admin Dose 1 DROP; Start 09/20/16 at 13:30 Latanoprost (Xalatan) 1 drop DAILY LEFT EYE Last administered on 09/29/16 10: 31; Admin Dose 1 DROP; Start 09/20/16 at 13:30 IV Flush (NS 10 ml) 10 ml PRN PRN IV IV PROTOCOL; Start 09/21/16 at 17:30 Acetaminophen (Tylenol Liquid) 650 mg Q6H PRN NGT PAIN AND OR ELEVATED TEMP Last administered on 09/22/16 09:09; Admin Dose 650 MG; Start 09/22/16 at 00:20 Enoxaparin Sodium (Lovenox) 30 mg DAILY SC Last administered on 09/27/16 09:40 ; Admin Dose 30 MG; Start 09/23/16 at 09:00; Status Future Hold Hydralazine HCl (Apresoline) 10 mg Q6H PRN IV for sbp>160 Last administered on 09/27/16 08:11; Admin Dose 10 MG; Start 09/27/16 at 08:00 Diagnostic Test (Pha) (Accucheck) 1 ea Q6H XX Last administered on 09/29/16 07 :04; Admin Dose 1 EA; Start 09/28/16 at 07:00 Levofloxacin (Levaquin) 500 mg DAILY@06 PO Last administered on 09/29/16 05:47 ; Admin Dose 500 MG; Start 09/29/16 at 06:00 Metronidazole (Flagyl) 500 mg Q8 PO Last administered on 09/29/16 05:47; Admin Dose 500 MG; Start 09/28/16 at 22:00 Oxycodone/ Acetaminophen (Percocet (5/ 325)) 1 tab Q4H PRN PO PAIN Last administered on 09/28/16 22:31; Admin Dose 1 TAB; Start 09/28/16 at 20:30 Oxycodone/ Acetaminophen 2 tab 2 tab Q6H PRN PO PAIN Last administered on t 01:23; Admin Dose 2 TAB; Start 09/29/16 at 00:00 Dextrose/Sodium Chloride (D5-1/2ns) 1,000 ml @ 75 mls/hr [id number] IV ; Start at 10:30 YAMILE LARA MD Sep 29, 2016 11:40
[2016-09-29] MEDS ORDERED: ACETAMINOPHEN 500 MG TAB PO ONE (12:00)
[2016-09-29] MEDS ORDERED: DIPHENHYDRAMINE 25 MG CAP PO ONE (12:00)
[2016-09-29] MEDS: DEXTROSE 5%-0.45% NACL 1,000 ML IV SCH ×2 (12:59→23:50)
--- NOTE | 2016-09-29 13:50 | PN ---
DATE: 09/29/2016 SUBJECTIVE: No events overnight. No fevers. The patient is lying comfortably in bed. She does no t feel well, but overall looks comfortable. LABORATORY DATA: WBC today 19.4, H and H 6.9 and 21.5, platelets 248, neutrophils 91. BUN 31, crea tinine 1.20. INDWELLINGS: The patient has right-sided abdominal catheter, PICC line placed on 09/21/2016. ANTIMICROBIALS: 1. She was started on Levaquin and Flagyl. 2. Status post Zosyn, fluconazole. MICROBIOLOGY: Intra-abdominal fluid culture is pending. PHYSICAL EXAMINATION: GENERAL: Fragile, elderly woman in no distress. HEENT: Head atraumatic, normocephalic. Sclerae anicteric. Buccal mucosa dry. NECK: Supple. CHEST: Rise symmetrical. Breath sounds diminished to bases. HEART: S1, S2. ABDOMEN: Soft, bowel sounds present. EXTREMITIES: Without cyanosis. ASSESSMENT: 1. Systemic inflammatory response syndrome with persistent leukocytosis, multifactorial. 2. Acute on chronic anemia. 3. Pelvic abscess status post CT-guided aspiration with catheter placement. 4. Status post small bowel resection and abscess drainage with exploratory laparotomy on 09/20/2016 . 5. Chronic obstructive pulmonary disease. 6. Acute on chronic kidney disease. PLAN: The patient remains stable postoperatively. Antibiotics were changed to p.o. Levaquin and Fl agyl per surgery. Intraoperative culture is pending. She is going to have blood transfusion today. We will continue her on current regimen. Dictated By: YASMANY BECERRA PROJECT MA[employer]GER [employer]/VU Conf#: [id number] DID#: [id number]
--- NOTE | 2016-09-29 15:05 | CONS ---
Date/Time of Note Date/Time of Note DATE: 09/29/16 TIME: 15:02 Assessment/Plan Assessment/Plan Additional Assessment/Plan Small bowel obstruction with abdominal abscess status post repeat surgery Recent shock Acute blood loss anemia Diastolic congestive heart failure Acute appendicitis status post surgery Preserved ejection fraction Hypertension Acute kidney injury. -Patient with acute blood loss anemia and plan to get 2 units of blood transfusion. Serial hemoglobins. Discussed with nurse, Lasix 20 mg IV 1 in between blood transfusions if blood pressure permits. Withhold any antihypertensives at the current time given severe anemia. CT scan of abdomen pelvis with visualized portions of the lungs with evidence of pleural effusions. Would watch closely for any evidence of decompensated congestive heart failure. Low threshold of transfer to ICU Consultation Date/Type/Reason Admit Date/Time Sep 19, 2016 at 22:10 Type of Consultation: cv Referring Provider: YAMILE LARA MD 24 HR Interval Summary Free Text/Dictation Patient denies chest pain, shortness of breath. Complaining of fatigue Exam/Review of Systems Vital Signs Vitals Vital Signs Date Time Temp Pulse Resp B/P Pulse Ox O2 Delivery O2 Flow Rate FiO2 09/29/16 08:12 97.8 94 20 99/55 99 09/29/16 00:19 3.0 09/28/16 20:00 Nasal Cannula 09/26/16 21:46 32 Intake and Output 09/28/16 09/28/16 09/29/16 15:00 23:00 07:00 Intake Total 980 ml Output Total 34 ml Balance -34 ml 980 ml Exam Fatigued, no apparent distress Constitutional: alert, oriented Head: normocephalic Neck: supple Respiratory: other (Coarse breath sounds bilaterally, no wheezing) Cardiovascular: other (S1-S2 heard), regular rate and rhythm Gastrointestinal: bowel sounds, non-tender, other, soft, tender (Discomfort with palpation) Extremities: other (No edema) Results Result Diagram: 09/29/16 1025 09/29/16 0500 Results 24 hrs Laboratory Tests Test 09/28/16 18:57 09/29/16 01:21 09/29/16 05:00 09/29/16 06:36 Bedside Glucose 140 113 116 Activated Partial Thromboplast Time 29.8 Alanine Aminotransferase (ALT/SGPT) 30 Albumin 2.4 L Albumin/Globulin Ratio 0.80 Alkaline Phosphatase 80 Anion Gap 11 Aspartate Amino Transf (AST/SGOT) 32 Band Neutrophils % 2.0 Blood Urea Nitrogen 31 H Calcium Level 8.3 L Carbon Dioxide Level 28 Chloride Level 103 Creatinine 1.20 H Direct Bilirubin 0.00 Globulin 3.00 Glucose Level 89 # Hematocrit 21.5 L Hemoglobin 6.9 *L INR International Normalized Ratio 1.11 Indirect Bilirubin 0.0 Lymphocytes # 0.6 L Lymphocytes % 3.0 L Magnesium Level 1.9 Mean Corpuscular Hemoglobin 28.3 L Mean Corpuscular Hemoglobin Concent 32.1 Mean Corpuscular Volume 88.1 Mean Platelet Volume 10.5 H Metamyelocytes # 0.2 Metamyelocytes % 1.0 H Monocytes # 0.6 Monocytes % 3.0 Neutrophils # 17.7 H Neutrophils % 91.0 H Phosphorus Level 5.2 H Platelet Count 248 # Potassium Level 4.1 Prealbumin 8.2 L Prothrombin Time 14.3 H Prothrombin Time Ratio 1.1 Red Blood Count 2.44 L Red Cell Distribution Width 15.3 H Sodium Level 138 Total Bilirubin 0.0 L Total Protein 5.4 L White Blood Count 19.4 #H Test 09/29/16 10:25 Hematocrit 17.9 L Hemoglobin 5.9 *L Medications Medications Current Medications Salmeterol Xinafoate/ Fluticasone (Advair 250/50 Diskus) 1 inh BID INH Last administered on 09/29/16 10:28; Admin Dose 1 INH; Start 09/20/16 at 09:00 Tiotropium [place] (Spiriva) 1 inh DAILY INH Last administered on 09/29/16 10: 35; Admin Dose 1 INH; Start 09/20/16 at 09:00 Dorzolamide/ Timolol (Cosopt) 1 drop BID LEFT EYE Last administered on 10:31; Admin Dose 1 DROP; Start 09/20/16 at 13:30 Latanoprost (Xalatan) 1 drop DAILY LEFT EYE Last administered on 09/29/16 10: 31; Admin Dose 1 DROP; Start 09/20/16 at 13:30 IV Flush (NS 10 ml) 10 ml PRN PRN IV IV PROTOCOL; Start 09/21/16 at 17:30 Acetaminophen (Tylenol Liquid) 650 mg Q6H PRN NGT PAIN AND OR ELEVATED TEMP Last administered on 2/17/17at 09:09; Admin Dose 650 MG; Start 09/22/16 at 00:20 Enoxaparin Sodium (Lovenox) 30 mg DAILY SC Last administered on 09/27/16 09:40 ; Admin Dose 30 MG; Start 09/23/16 at 09:00; Status Future Hold Hydralazine HCl (Apresoline) 10 mg Q6H PRN IV for sbp>160 Last administered on 09/27/16 08:11; Admin Dose 10 MG; Start 09/27/16 at 08:00 Levofloxacin (Levaquin) 500 mg DAILY@06 PO Last administered on 09/29/16 05:47 ; Admin Dose 500 MG; Start 09/29/16 at 06:00 Metronidazole (Flagyl) 500 mg Q8 PO Last administered on 09/29/16 05:47; Admin Dose 500 MG; Start 09/28/16 at 22:00 Oxycodone/ Acetaminophen (Percocet (5/ 325)) 1 tab Q4H PRN PO PAIN Last administered on 09/28/16 22:31; Admin Dose 1 TAB; Start 09/28/16 at 20:30 Oxycodone/ Acetaminophen 2 tab 2 tab Q6H PRN PO PAIN Last administered on 01:23; Admin Dose 2 TAB; Start 09/29/16 at 00:00 Dextrose/Sodium Chloride (D5-1/2ns) 1,000 ml @ 75 mls/hr [id number] IV Last administered on 09/29/16 12:59; Admin Dose 75 MLS/HR; Start 09/29/16 at 10:30 Taco Castillo DO Sep 29, 2016 15:05
[2016-09-29] MEDS ORDERED: VITAMIN A & D 5 GM OINT PACKET TOP ONE (17:52)
[2016-09-29] MEDS ORDERED: LORAZEPAM 2 MG INJ IV STA (19:12)
[2016-09-29] MEDS: hydrALAzine 20 MG INJ IV PRN (19:30)
[2016-09-29] MEDS: morphine 2 MG INJ IV PRN ×2 (20:26→23:30)
[2016-09-29] MEDS ORDERED: morphine 2 MG INJ IV PRN (20:30)
[2016-09-29 22:31] LABS: HEMATOCRIT 28.5 % (37.0-47.0); HEMOGLOBIN 9.4 g/dl (12.0-16.0)
[2016-09-29] MEDS ORDERED: SERT100T PO (23:04)
[2016-09-30] VITALS (13 sets, daily range): BP systolic 108–136; BP diastolic 57–66; PULSE 85–95; RESP 18–19
[2016-09-30] MEDS: ZOLPIDEM 5 MG TAB PO PRN ×2 (00:18→22:08)
[2016-09-30] MEDS: SERTRALINE 100 MG TAB PO SCH ×2 (00:18→21:59)
[2016-09-30] MEDS: ONDANSETRON 4 MG INJ IV PRN (03:58)
[2016-09-30] MEDS: PANTOPRAZOLE 40 MG INJ IV SCH ×3 (06:10→18:05)
[2016-09-30] MEDS: LEVOFLOXACIN 500 MG TAB PO SCH (06:11)
[2016-09-30] MEDS: metroNIDAZOLE 500 MG TAB PO SCH ×3 (06:11→21:58)
--- NOTE | 2016-09-30 06:31 | CONS ---
DATE OF ADMISSION: 09/19/2016 DATE OF CONSULTATION: GASTROINTESTINAL FOLLOWUP CONSULTATION HISTORY OF PRESENT ILLNESS: The patient is an 86-year-old female with a history of hypertension, ch ronic obstructive pulmonary disease, hypothyroidism, dyslipidemia, who had appendiceal surgery lapar oscopically. After the surgery the patient was sent to rehabilitation. She continued to have abdomi nal pain and was found to have a pelvic abscess, so she had a drain placed. The abdominal pain then got worse, so a repeat CAT scan was done and it showed a small-bowel obstruction. Patient was lambert sferred to the medical floor. The surgeon took the patient in again and removed the . The pos top course was uneventful, but a few days ago the patient again had abdominal pain. A repeat CAT sc an was done on multiple abscesses were identified, so the patient went for another percutaneous drai nage procedure today. GI consult was called in because the patient was having dark stool and there was a significant drop in hematocrit to 17. The patient denies any nausea or vomiting. No hemateme sis. She does not know the color of the stool. No chest pain, no shortness of breath. SOCIAL HISTORY: She does not smoke or drink. ALLERGIES: NONE. PHYSICAL EXAMINATION: GENERAL: Alert, awake, not in distress. HEENT: Unremarkable. NECK: Supple. No thyromegaly, no lymphadenopathy. CARDIOVASCULAR SYSTEM: No murmur, gallop or click. ABDOMEN: Soft. She has a drain. EXTREMITIES: No edema. LABORATORY DATA: Shows WBC 19.4. Hematocrit dropped down from 21.5 to 17.9. BUN is 31, creatinine is 1.20. Stool for occult blood was reported positive. IMPRESSION: 1. Gastrointestinal bleeding. 2. Multiple pelvic abscesses, status post drain. 3. Status post surgery for small-bowel obstruction, and also laparoscopic removal of the appendix. 4. Chronic obstructive pulmonary disease. 5. Hypertension. 6. Mild renal insufficiency. PLAN: At this point transfuse the patient, keep the hematocrit about 25 PPI. No blood thinner, no Lovenox, no aspirin. If the bleeding persists, then will definitely proceed with an EGD. I will dis cuss with the daughter. Dictated By: MICHELE NGUYỄN/VU Conf#: [id number] DID#: [id number]
--- NOTE | 2016-09-30 06:49 | PN ---
DATE: 09/29/2016 SUBJECTIVE: Ms. Aguila is now postoperative day 9 from a small bowel resection. She had multiple bowel movements overnight. She was currently tolerating some apple juice, but now has had some low er abdominal pain. PHYSICAL EXAMINATION: VITAL SIGNS: Her vitals were not recorded through the day, but she has been afebrile, heart 90s, la st BP was 190/100. She has been incontinent throughout today. ABDOMEN: Soft, mildly distended. LABORATORY TODAY: Reveals a white count of 19, hematocrit of 21, which was repeated, which was 18. Her platelets were 248. Her chemistry shows sodium 138, potassium 4.1, chloride 103, CO2 28, BUN an d creatinine 31 and 1.2, and a glucose of 89. Her PT and PTT were 1.1 and 29.8. ASSESSMENT AND PLAN: Ms. Aguila is an 86-year-old female status post small bowel resection. 1. She had multiple bowel movements today and is sent an occult blood, which was positive. She is likely having an upper GI bleed. Two units of blood were ordered. I am going to continue to transf use. H and H will be drawn after her second unit. GI has been consulted for possible endoscopy in the morning. 2. Her ileus is resolved; however, she was made n.p.o. for the possible EGD in the morning. 3. Renal function is improving and resolving. 4. Would recommend transferring to tele or ICU for further monitoring. Dictated By: TRISTAN MYELS/NTS Conf#: [id number] DID#: [id number]
[2016-09-30 07:48] LABS: ADD SCAN DIFF NO
[2016-09-30 07:53] LABS: BASOPHILS % 0.1 % (0.0-2.0); EOSINOPHILS # 0.2 10^3/ul (0.0-0.5); EOSINOPHILS % 1.2 % (0.0-7.0); HEMATOCRIT 27.4 % (37.0-47.0); LYMPHOCYTES # 0.9 10^3/ul (0.8-2.9); LYMPHOCYTES % 5.4 % (15.0-51.0); MEAN CORPUSCULAR HEMOGLOBIN 27.9 pg (29.0-33.0); MEAN CORPUSCULAR HGB CONC 32.8 g/dl (32.0-37.0); MEAN CORPUSCULAR VOLUME 84.8 fl (82.0-101.0); MONOCYTE # 1.2 10^3/ul (0.3-0.9); MONOCYTES % 7.4 % (0.0-11.0); NEUTROPHIL # 13.8 10^3/ul (1.6-7.5); PLATELET COUNT 237 10^3/UL (140-415); RED BLOOD COUNT 3.23 10^6/ul (4.20-5.40); RED CELL DISTRIBUTION WIDTH 15.5 % (11.5-14.5); WHITE BLOOD COUNT 16.3 10^3/ul (4.8-10.8)
[2016-09-30 07:56] LABS: INR 1.06; PROTIME 13.8 Sec (12.2-14.2); PT RATIO 1.1
[2016-09-30 07:57] LABS: PARTIAL THROMBOPLASTIN TIME 29.2 Sec (25.0-35.0)
[2016-09-30 08:31] LABS: ALBUMIN 2.3 g/dl (3.3-4.9)
[2016-09-30 08:32] LABS: POTASSIUM 3.6 mmol/L (3.5-5.1)
[2016-09-30 08:34] LABS: ALBUMIN/GLOBULIN RATIO 0.82; CREATININE 1.24 mg/dl (0.44-1.00); TOTAL PROTEIN 5.1 g/dl (6.1-8.1)
[2016-09-30 08:35] LABS: CALCIUM 7.8 mg/dl (8.4-10.2)
[2016-09-30] MEDS: SALMETEROL/FLUTICASONE 250/50 INHA INH SCH ×2 (08:58→21:59)
[2016-09-30] MEDS: DORZOLAMIDE/TIMOLOL 10 ML OPH LEFT EYE SCH ×2 (09:00→21:59)
[2016-09-30] MEDS: LATANOPROST 0.005% 2.5 ML OPH LEFT EYE SCH (09:00)
--- NOTE | 2016-09-30 09:16 | PN ---
DATE: 09/30/2016 SUBJECTIVE: Ms. Aguila is postop day 11 for a small bowel resection. Yesterday the patient likel y had an upper GI bleed, which now seems to have resolved. She had 1 bowel movement last night. Ankit moseley is hemodynamically stable and her hematocrit is stable this morning. Currently temperature 98, pulse 96, BP 120/57. Her urine output is over 1.5 liters. Her abdomen is soft, nontender, nondistended. Her wound is clean, dry and intact. LABORATORY: CBC reveals a white count of 15, hematocrit 27, platelets 237. BNP is pending. ASSESSMENT AND PLAN: Ms. Aguila is an 86-year-old female status post small bowel resection, with likely an upper gastrointestinal bleed. 1. She is hemodynamically stable and her hematocrit is stable. We will restart her regular diet. H and H will be ordered for this afternoon. 2. Her urine output was 1.5 liters. Will check a BMP later today. 3. Continue antibiotics. 4. Doing much better than the previous 24 hours. Dictated By: TRISTAN MYLES/VU Conf#: [id number] DID#: [id number]
--- NOTE | 2016-09-30 09:31 | CONS ---
Date/Time of Note Date/Time of Note DATE: 09/30/16 TIME: 09:30 Assessment/Plan Assessment/Plan Chief Complaint/Hosp Course Small bowel obstruction with abdominal abscess status post repeat surgery Shock, possibly sepsis versus hypovolemic, resolved Acute blood loss anemia Diastolic congestive heart failure Acute appendicitis status post surgery Preserved ejection fraction Hypertension Acute kidney injury improved Problems: Additional Assessment/Plan 1) will check BNP 2) will check CXR 3) able to lie supine Consultation Date/Type/Reason Admit Date/Time Sep 19, 2016 at 22:10 Type of Consultation: cv Referring Provider: YAMILE LARA MD Detailed Summary Respiratory: no complaints Cardiovascular: no complaints Gastrointestinal: no complaints Musculoskeletal: no complaints Skin: no complaints Exam/Review of Systems Vital Signs Vitals Vital Signs Date Time Temp Pulse Resp B/P Pulse Ox O2 Delivery O2 Flow Rate FiO2 09/30/16 08:19 95 09/30/16 08:09 98.0 19 120/57 96 09/29/16 22:00 Nasal Cannula 3.0 09/26/16 21:46 32 Intake and Output 09/29/16 09/29/16 09/30/16 15:00 23:00 07:00 Intake Total 850 ml 1250 ml Output Total 700 ml 900 ml Balance 150 ml 350 ml Exam Constitutional: frail Head: atraumatic, normocephalic Neck: supple Respiratory: diminished breath sounds Cardiovascular: regular rate and rhythm Gastrointestinal: firm Musculoskeletal: nl extremities to inspection Results Result Diagram: 09/30/16 0715 09/30/16 0715 Results 24 hrs Laboratory Tests Test 09/29/16 10:25 09/29/16 14:45 09/29/16 22:13 09/30/16 07:15 Hematocrit 17.9 L 28.5 #L 27.4 L Hemoglobin 5.9 *L 9.4 #L 9.0 L Stool Occult Blood POSITIVE Activated Partial Thromboplast Time 29.2 Alanine Aminotransferase (ALT/SGPT) 29 Albumin 2.3 L Albumin/Globulin Ratio 0.82 Alkaline Phosphatase 79 Anion Gap 13 Aspartate Amino Transf (AST/SGOT) 27 Basophils # 0.0 Basophils % 0.1 Blood Urea Nitrogen 28 H Calcium Level 7.8 L Carbon Dioxide Level 25 Chloride Level 104 Creatinine 1.24 H Direct Bilirubin 0.00 Eosinophils # 0.2 Eosinophils % 1.2 Globulin 2.80 Glucose Level 103 INR International Normalized Ratio 1.06 Indirect Bilirubin 0.0 Lymphocytes # 0.9 Lymphocytes % 5.4 L Mean Corpuscular Hemoglobin 27.9 L Mean Corpuscular Hemoglobin Concent 32.8 Mean Corpuscular Volume 84.8 Mean Platelet Volume 10.0 Monocytes # 1.2 H Monocytes % 7.4 Neutrophils # 13.8 H Neutrophils % 85.0 H Nucleated Red Blood Cells # 0.0 Nucleated Red Blood Cells % 0.0 Platelet Count 237 Potassium Level 3.6 Prothrombin Time 13.8 Prothrombin Time Ratio 1.1 Red Blood Count 3.23 #L Red Cell Distribution Width 15.5 H Sodium Level 138 Total Bilirubin 0.0 L Total Protein 5.1 L White Blood Count 16.3 H Medications Medications Current Medications Salmeterol Xinafoate/ Fluticasone (Advair 250/50 Diskus) 1 inh BID INH Last administered on 09/30/16 08:58; Admin Dose 1 INH; Start 09/20/16 at 09:00 Tiotropium [place] (Spiriva) 1 inh DAILY INH Last administered on 09/29/16 10: 35; Admin Dose 1 INH; Start 09/20/16 at 09:00 Dorzolamide/ Timolol (Cosopt) 1 drop BID LEFT EYE Last administered on 09:00; Admin Dose 1 DROP; Start 09/20/16 at 13:30 Latanoprost (Xalatan) 1 drop DAILY LEFT EYE Last administered on 09/30/16 09: 00; Admin Dose 1 DROP; Start 09/20/16 at 13:30 IV Flush (NS 10 ml) 10 ml PRN PRN IV IV PROTOCOL; Start 09/21/16 at 17:30 Acetaminophen (Tylenol Liquid) 650 mg Q6H PRN NGT PAIN AND OR ELEVATED TEMP Last administered on 09/22/16 09:09; Admin Dose 650 MG; Start 09/22/16 at 00:20 Hydralazine HCl (Apresoline) 10 mg Q6H PRN IV for sbp>160 Last administered on 09/29/16 19:30; Admin Dose 10 MG; Start 09/27/16 at 08:00 Levofloxacin (Levaquin) 500 mg DAILY@06 PO Last administered on 09/30/16 06:11 ; Admin Dose 500 MG; Start 09/29/16 at 06:00 Metronidazole 500 mg 500 mg Q8 PO Last administered on 09/30/16 06:11; Admin Dose 500 MG; Start 09/28/16 at 22:00 Dextrose/Sodium Chloride (D5-1/2ns) 1,000 ml @ 75 mls/hr [id number] IV Last administered on 09/29/16 12:59; Admin Dose 75 MLS/HR; Start 09/29/16 at 10:30 Pantoprazole (Protonix Iv) 40 mg BID@06,18 IV Last administered on 09/30/16 06 :10; Admin Dose 40 MG; Start 09/30/16 at 06:00 Morphine Sulfate (morphine) 2 mg Q2H PRN IV pain Last administered on 23:30; Admin Dose 2 MG; Start 09/29/16 at 20:30 Hydralazine HCl (Apresoline) 25 mg TID PO Last administered on 09/29/16 20:44 ; Admin Dose 25 MG; Start 09/29/16 at 21:00 Sertraline HCl (Zoloft) 100 mg HS PO Last administered on 09/30/16 00:18; Admin Dose 100 MG; Start 09/29/16 at 23:30 Ondansetron HCl (Zofran Inj) 4 mg Q6H PRN IV NAUSEA AND/OR VOMITING Last administered on 09/30/16 03:58; Admin Dose 4 MG; Start 09/30/16 at 04:00 TAO KERN MD Sep 30, 2016 09:31
[2016-09-30] MEDS: TIOTROPIUM 18 MCG CAPSULE INHA DEV INH SCH (12:56)
[2016-09-30] MEDS: DEXTROSE 5%-0.45% NACL 1,000 ML IV SCH ×2 (13:10→18:05)
--- NOTE | 2016-09-30 13:21 | CONS ---
Date/Time of Note Date/Time of Note DATE: 09/30/16 TIME: 13:18 Assessment/Plan Assessment/Plan Additional Assessment/Plan 1. Sepsis. 2. Acute kidney injury secondary to acute tubular necrosis from sepsis.- improved to normal then again bumped to 1.2 09/29/2016 due to severe anemia causing ischemic prerenal azotemia and ATN 3. Acute hyperkalemia with metabolic acidosis likely secondary to acute kidney injury.- now resolved 4. Small bowel obstructions status post exploratory laparotomy and abdominal washout- on TPN currently 5. History of recent laparoscopic appendectomy. 6. History of hypertension 7. History of chronic obstructive pulmonary disease. 8. History of hypothyroidism. PLAN: cr bumped to 1.2,- stable compared to yesterday- s/p 2 U PRBC yesterday, Now Hb 9.0, electrolytes stable today making good urine, K normal, expecting Cr to improve will follow up Consultation Date/Type/Reason Admit Date/Time Sep 19, 2016 at 22:10 Initial Consult Date Sep Type of Consultation: NEPHROLOGY Reason for Consultation Acute kidney injury, Hyperkalemia Referring Provider: YAMILE LARA MD 24 HR Interval Summary Free Text/Dictation s/p PRBC< Cr 1.24 Exam/Review of Systems Vital Signs Vitals Vital Signs Date Time Temp Pulse Resp B/P Pulse Ox O2 Delivery O2 Flow Rate FiO2 09/30/16 12:28 85 09/30/16 12:03 97.5 19 121/66 97 09/30/16 08:15 Nasal Cannula 3.0 09/26/16 21:46 32 Intake and Output 09/29/16 09/29/16 09/30/16 15:00 23:00 07:00 Intake Total 850 ml 1250 ml Output Total 700 ml 900 ml Balance 150 ml 350 ml Exam GENERAL: no acute distress HEENT: Head atraumatic, normocephalic. Sclerae anicteric. Buccal mucosa pink. NECK: Supple, trachea midline. CHEST: Rise symmetrical. Breath sounds clear. HEART: S1, S2. ABDOMEN: Soft with some tenderness on palpation. Bowel sounds present. EXTREMITIES: Without cyanosis. Results Result Diagram: 09/30/16 0715 09/30/16 0715 Results 24 hrs Laboratory Tests Test 09/29/16 14:45 09/29/16 22:13 09/30/16 07:15 Stool Occult Blood POSITIVE Hematocrit 28.5 #L 27.4 L Hemoglobin 9.4 #L 9.0 L Activated Partial Thromboplast Time 29.2 Alanine Aminotransferase (ALT/SGPT) 29 Albumin 2.3 L Albumin/Globulin Ratio 0.82 Alkaline Phosphatase 79 Anion Gap 13 Aspartate Amino Transf (AST/SGOT) 27 B-Type Natriuretic Peptide 1490 H Basophils # 0.0 Basophils % 0.1 Blood Urea Nitrogen 28 H Calcium Level 7.8 L Carbon Dioxide Level 25 Chloride Level 104 Creatinine 1.24 H Direct Bilirubin 0.00 Eosinophils # 0.2 Eosinophils % 1.2 Globulin 2.80 Glucose Level 103 INR International Normalized Ratio 1.06 Indirect Bilirubin 0.0 Lymphocytes # 0.9 Lymphocytes % 5.4 L Mean Corpuscular Hemoglobin 27.9 L Mean Corpuscular Hemoglobin Concent 32.8 Mean Corpuscular Volume 84.8 Mean Platelet Volume 10.0 Monocytes # 1.2 H Monocytes % 7.4 Neutrophils # 13.8 H Neutrophils % 85.0 H Nucleated Red Blood Cells # 0.0 Nucleated Red Blood Cells % 0.0 Platelet Count 237 Potassium Level 3.6 Prothrombin Time 13.8 Prothrombin Time Ratio 1.1 Red Blood Count 3.23 #L Red Cell Distribution Width 15.5 H Sodium Level 138 Total Bilirubin 0.0 L Total Protein 5.1 L White Blood Count 16.3 H Medications Medications Current Medications Salmeterol Xinafoate/ Fluticasone (Advair 250/50 Diskus) 1 inh BID INH Last administered on 09/30/16 08:58; Admin Dose 1 INH; Start 09/20/16 at 09:00 Tiotropium [place] (Spiriva) 1 inh DAILY INH Last administered on 09/30/16 12: 56; Admin Dose 1 INH; Start 09/20/16 at 09:00 Dorzolamide/ Timolol (Cosopt) 1 drop BID LEFT EYE Last administered on 09:00; Admin Dose 1 DROP; Start 09/20/16 at 13:30 Latanoprost (Xalatan) 1 drop DAILY LEFT EYE Last administered on 09/30/16 09: 00; Admin Dose 1 DROP; Start 09/20/16 at 13:30 IV Flush (NS 10 ml) 10 ml PRN PRN IV IV PROTOCOL; Start 09/21/16 at 17:30 Acetaminophen (Tylenol Liquid) 650 mg Q6H PRN NGT PAIN AND OR ELEVATED TEMP Last administered on 09/22/16 09:09; Admin Dose 650 MG; Start 09/22/16 at 00:20 Hydralazine HCl (Apresoline) 10 mg Q6H PRN IV for sbp>160 Last administered on 09/29/16 19:30; Admin Dose 10 MG; Start 09/27/16 at 08:00 Levofloxacin (Levaquin) 500 mg DAILY@06 PO Last administered on 09/30/16 06:11 ; Admin Dose 500 MG; Start 09/29/16 at 06:00 Metronidazole 500 mg 500 mg Q8 PO Last administered on 09/30/16 06:11; Admin Dose 500 MG; Start 09/28/16 at 22:00 Dextrose/Sodium Chloride (D5-1/2ns) 1,000 ml @ 75 mls/hr [id number] IV Last administered on 09/29/16 12:59; Admin Dose 75 MLS/HR; Start 09/29/16 at 10:30 Pantoprazole (Protonix Iv) 40 mg BID@06,18 IV Last administered on 09/30/16 06 :10; Admin Dose 40 MG; Start 09/30/16 at 06:00 Morphine Sulfate (morphine) 2 mg Q2H PRN IV pain Last administered on 23:30; Admin Dose 2 MG; Start 09/29/16 at 20:30 Hydralazine HCl (Apresoline) 25 mg TID PO Last administered on 09/29/16 20:44 ; Admin Dose 25 MG; Start 09/29/16 at 21:00 Sertraline HCl (Zoloft) 100 mg HS PO Last administered on 09/30/16 00:18; Admin Dose 100 MG; Start 09/29/16 at 23:30 Ondansetron HCl (Zofran Inj) 4 mg Q6H PRN IV NAUSEA AND/OR VOMITING Last administered on 09/30/16 03:58; Admin Dose 4 MG; Start 09/30/16 at 04:00 MADISYN MANUEL MD Sep 30, 2016 13:21
--- NOTE | 2016-09-30 14:26 | CONS ---
Date/Time of Note Date/Time of Note DATE: 09/30/16 TIME: 14:26 Assessment/Plan Assessment/Plan Chief Complaint/Hosp Course ID PROGRESS NOTE CURRENT ABX=> Levaquin + Flagyl * s/p Zosyn * s/p Diflucan POD #2-> s/p ABD/Pelvic ABSCESS Drain 2 w/Micro (-)48H 24H INTERVAL SUMMARY * Overall improved -- [facility] * Afebrile, VSS, NAD * Resting comfortably PHYSICAL EXAMINATION: GENERAL: VSS, NAD HEENT: Unremarkable -- NECK: Supple, trachea midline. CHEST: Rise symmetrical, without dyspnea on observation HEART: Pulse RRR ABDOMEN: Soft, (+)Drain EXTREMITIES: Warm ID ASSESSMENT 86 yo F admit with: 1. Systemic inflammatory response syndrome with persistent leukocytosis, multifactorial. 2. Acute on chronic anemia. 3. Pelvic abscess status post CT-guided aspiration with catheter placement. * POD #2-> s/p ABD/Pelvic ABSCESS Drain 09/28/16 w/Micro (-)48H 4. Status post small bowel resection and abscess drainage with exploratory laparotomy on 09/20/2016. 5. Chronic obstructive pulmonary disease. * BLL pleural effusions on admission CXR 6. Acute on chronic kidney disease. 7. Yeast colonization 8. Diarrhea w/(-)C.Diff toxin ( )MRSA Nares INVASIVES: PICC (09/21/16), DRAIN ABX ALLERGY: KNDA CURRENT ABX: DAY #2 => Levaquin + Flagyl * s/p Zosyn * s/p Diflucan ID RECOMMENDATIONS 1. Continue current ABX 2. Continue to monitor how she tolerates PO ABX . Problems: Consultation Date/Type/Reason Admit Date/Time Sep 19, 2016 at 22:10 Initial Consult Date Type of Consultation: ID Referring Provider: YAMILE LARA MD Exam/Review of Systems Vital Signs Vitals Vital Signs Date Time Temp Pulse Resp B/P Pulse Ox O2 Delivery O2 Flow Rate FiO2 09/30/16 12:28 85 09/30/16 12:03 97.5 19 121/66 97 09/30/16 08:15 Nasal Cannula 3.0 09/26/16 21:46 32 Intake and Output 09/29/16 09/29/16 09/30/16 15:00 23:00 07:00 Intake Total 850 ml 1250 ml Output Total 700 ml 900 ml Balance 150 ml 350 ml Results Result Diagram: 09/30/16 0715 09/30/16 0715 Results 24 hrs Laboratory Tests Test 09/29/16 14:45 09/29/16 22:13 09/30/16 07:15 Stool Occult Blood POSITIVE Hematocrit 28.5 #L 27.4 L Hemoglobin 9.4 #L 9.0 L Activated Partial Thromboplast Time 29.2 Alanine Aminotransferase (ALT/SGPT) 29 Albumin 2.3 L Albumin/Globulin Ratio 0.82 Alkaline Phosphatase 79 Anion Gap 13 Aspartate Amino Transf (AST/SGOT) 27 B-Type Natriuretic Peptide 1490 H Basophils # 0.0 Basophils % 0.1 Blood Urea Nitrogen 28 H Calcium Level 7.8 L Carbon Dioxide Level 25 Chloride Level 104 Creatinine 1.24 H Direct Bilirubin 0.00 Eosinophils # 0.2 Eosinophils % 1.2 Globulin 2.80 Glucose Level 103 INR International Normalized Ratio 1.06 Indirect Bilirubin 0.0 Lymphocytes # 0.9 Lymphocytes % 5.4 L Mean Corpuscular Hemoglobin 27.9 L Mean Corpuscular Hemoglobin Concent 32.8 Mean Corpuscular Volume 84.8 Mean Platelet Volume 10.0 Monocytes # 1.2 H Monocytes % 7.4 Neutrophils # 13.8 H Neutrophils % 85.0 H Nucleated Red Blood Cells # 0.0 Nucleated Red Blood Cells % 0.0 Platelet Count 237 Potassium Level 3.6 Prothrombin Time 13.8 Prothrombin Time Ratio 1.1 Red Blood Count 3.23 #L Red Cell Distribution Width 15.5 H Sodium Level 138 Total Bilirubin 0.0 L Total Protein 5.1 L White Blood Count 16.3 H Medications Medications Current Medications Salmeterol Xinafoate/ Fluticasone (Advair 250/50 Diskus) 1 inh BID INH Last administered on 09/30/16 08:58; Admin Dose 1 INH; Start 09/20/16 at 09:00 Tiotropium [place] (Spiriva) 1 inh DAILY INH Last administered on 09/30/16 12: 56; Admin Dose 1 INH; Start 09/20/16 at 09:00 Dorzolamide/ Timolol (Cosopt) 1 drop BID LEFT EYE Last administered on 09:00; Admin Dose 1 DROP; Start 09/20/16 at 13:30 Latanoprost (Xalatan) 1 drop DAILY LEFT EYE Last administered on 09/30/16 09: 00; Admin Dose 1 DROP; Start 09/20/16 at 13:30 IV Flush (NS 10 ml) 10 ml PRN PRN IV IV PROTOCOL; Start 09/21/16 at 17:30 Acetaminophen (Tylenol Liquid) 650 mg Q6H PRN NGT PAIN AND OR ELEVATED TEMP Last administered on 09/22/16 09:09; Admin Dose 650 MG; Start 09/22/16 at 00:20 Hydralazine HCl (Apresoline) 10 mg Q6H PRN IV for sbp>160 Last administered on 09/29/16 19:30; Admin Dose 10 MG; Start 09/27/16 at 08:00 Levofloxacin (Levaquin) 500 mg DAILY@06 PO Last administered on 09/30/16 06:11 ; Admin Dose 500 MG; Start 09/29/16 at 06:00 Metronidazole 500 mg 500 mg Q8 PO Last administered on 09/30/16 13:30; Admin Dose 500 MG; Start 09/28/16 at 22:00 Dextrose/Sodium Chloride (D5-1/2ns) 1,000 ml @ 75 mls/hr [id number] IV Last administered on 09/29/16 12:59; Admin Dose 75 MLS/HR; Start 09/29/16 at 10:30 Pantoprazole (Protonix Iv) 40 mg BID@06,18 IV Last administered on 09/30/16 06 :10; Admin Dose 40 MG; Start 09/30/16 at 06:00 Morphine Sulfate (morphine) 2 mg Q2H PRN IV pain Last administered on 23:30; Admin Dose 2 MG; Start 09/29/16 at 20:30 Hydralazine HCl (Apresoline) 25 mg TID PO Last administered on 09/29/16 20:44 ; Admin Dose 25 MG; Start 09/29/16 at 21:00 Sertraline HCl (Zoloft) 100 mg HS PO Last administered on 09/30/16 00:18; Admin Dose 100 MG; Start 09/29/16 at 23:30 Ondansetron HCl (Zofran Inj) 4 mg Q6H PRN IV NAUSEA AND/OR VOMITING Last administered on 09/30/16 03:58; Admin Dose 4 MG; Start 09/30/16 at 04:00 BRENT COLLINS NP Sep 30, 2016 14:26
[2016-09-30 14:43] LABS: HEMATOCRIT 26.4 % (37.0-47.0); HEMOGLOBIN 8.5 g/dl (12.0-16.0)
--- NOTE | 2016-09-30 15:02 | PN ---
Date/Time of Note Date/Time of Note DATE: 09/30/16 TIME: 15:01 Assessment/Plan VTE Prophylaxis VTE Prophylaxis Intervention: SCD's Lines/Catheters IV Catheter Type (from Nrs): PICC Line Central line still needed: Yes Urinary Cath still in place: Yes Reason Cath still needed: urinary retention Assessment/Plan Chief Complaint/Hosp Course Assessment/Plan 1. Small bowel obstruction s/p Recent Laproscopic Appendectomy Status post small bowel resection x2. Continue postsurgical care, pain management and IV antibiotics Diet as per general surgery recommendations Abdominal x-ray negative for obstruction 2. Sepsis Likely secondary to intra-abdominal abscess and postoperatively infectious disease doctor has been consulted, continue Zosyn and Flagyl Follow-up blood culture, continue aggressive IV fluids 3. Hyperkalemia Resolved status post IV fluid, nephrology has been consulted, follow-up electrolytes in a.m. 4 . Abdominal abscess x3 . Status post drainage by interventional radiologist and Diagnostic laparoscopy, Exploratory laparotomy and abdominal washout. Status post CT-guided drainage by interventional radiologist 09/28/2016 , continue aggressive IV antibiotics Follow-up with general surgery recommendations 3. COPD 4. Essential hypertension, stable 5. Acute anemia, questionable GI bleed, type and cross and transfuse 2 units of packed red blood cell, follow up hemoglobin hematocrit status post transfusion 6. Acute renal insufficiency, likely secondary to dehydration versus anemia, follow-up renal panel in a.m. nephrology has been consulted 7. Hypothyroidism 8 . 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 HEENT: Atraumatic, normocephalic. The pupils are equal and round . Neck: Supple with full range of motion. Chest: Normal expansion of the thorax during inspiration Lungs: Clear to auscultation bilaterally Heart: Normal S1-S2, Regular rhythm and rate. Abdomen: Soft , nontender, nondistended , bowel sounds are present. Surgical site is dry and clean Extremities: Normal to inspection, no edema no cyanosis Neurologic: Normal mental status,The patient is awake, alert and oriented . Results Result Diagram: 09/30/16 1402 09/30/16 0715 Results 24 hrs Laboratory Tests Test 09/29/16 22:13 09/30/16 07:15 09/30/16 14:02 Hematocrit 28.5 #L 27.4 L 26.4 L Hemoglobin 9.4 #L 9.0 L 8.5 L Activated Partial Thromboplast Time 29.2 Alanine Aminotransferase (ALT/SGPT) 29 Albumin 2.3 L Albumin/Globulin Ratio 0.82 Alkaline Phosphatase 79 Anion Gap 13 Aspartate Amino Transf (AST/SGOT) 27 B-Type Natriuretic Peptide 1490 H Basophils # 0.0 Basophils % 0.1 Blood Urea Nitrogen 28 H Calcium Level 7.8 L Carbon Dioxide Level 25 Chloride Level 104 Creatinine 1.24 H Direct Bilirubin 0.00 Eosinophils # 0.2 Eosinophils % 1.2 Globulin 2.80 Glucose Level 103 INR International Normalized Ratio 1.06 Indirect Bilirubin 0.0 Lymphocytes # 0.9 Lymphocytes % 5.4 L Mean Corpuscular Hemoglobin 27.9 L Mean Corpuscular Hemoglobin Concent 32.8 Mean Corpuscular Volume 84.8 Mean Platelet Volume 10.0 Monocytes # 1.2 H Monocytes % 7.4 Neutrophils # 13.8 H Neutrophils % 85.0 H Nucleated Red Blood Cells # 0.0 Nucleated Red Blood Cells % 0.0 Platelet Count 237 Potassium Level 3.6 Prothrombin Time 13.8 Prothrombin Time Ratio 1.1 Red Blood Count 3.23 #L Red Cell Distribution Width 15.5 H Sodium Level 138 Total Bilirubin 0.0 L Total Protein 5.1 L White Blood Count 16.3 H Medications Medications Current Medications Salmeterol Xinafoate/ Fluticasone (Advair 250/50 Diskus) 1 inh BID INH Last administered on 09/30/16t 08:58; Admin Dose 1 INH; Start 09/20/16 at 09:00 Tiotropium [place] (Spiriva) 1 inh DAILY INH Last administered on 09/30/16 12: 56; Admin Dose 1 INH; Start 09/20/16 at 09:00 Dorzolamide/ Timolol (Cosopt) 1 drop BID LEFT EYE Last administered on 09:00; Admin Dose 1 DROP; Start 09/20/16 at 13:30 Latanoprost (Xalatan) 1 drop DAILY LEFT EYE Last administered on 09/30/16 09: 00; Admin Dose 1 DROP; Start 09/20/16 at 13:30 IV Flush (NS 10 ml) 10 ml PRN PRN IV IV PROTOCOL; Start 09/21/16 at 17:30 Acetaminophen (Tylenol Liquid) 650 mg Q6H PRN NGT PAIN AND OR ELEVATED TEMP Last administered on 09/22/16 09:09; Admin Dose 650 MG; Start 09/22/16 at 00:20 Hydralazine HCl (Apresoline) 10 mg Q6H PRN IV for sbp>160 Last administered on 09/29/16 19:30; Admin Dose 10 MG; Start 09/27/16 at 08:00 Levofloxacin (Levaquin) 500 mg DAILY@06 PO Last administered on 09/30/16 06:11 ; Admin Dose 500 MG; Start 09/29/16 at 06:00 Metronidazole 500 mg 500 mg Q8 PO Last administered on 09/30/16 13:30; Admin Dose 500 MG; Start 09/28/16 at 22:00 Dextrose/Sodium Chloride (D5-1/2ns) 1,000 ml @ 75 mls/hr [id number] IV Last administered on 09/29/16 12:59; Admin Dose 75 MLS/HR; Start 09/29/16 at 10:30 Pantoprazole (Protonix Iv) 40 mg BID@06,18 IV Last administered on 09/30/16 06 :10; Admin Dose 40 MG; Start 09/30/16 at 06:00 Morphine Sulfate (morphine) 2 mg Q2H PRN IV pain Last administered on 23:30; Admin Dose 2 MG; Start 09/29/16 at 20:30 Hydralazine HCl (Apresoline) 25 mg TID PO Last administered on 09/29/16 20:44 ; Admin Dose 25 MG; Start 09/29/16 at 21:00 Sertraline HCl (Zoloft) 100 mg HS PO Last administered on 09/30/16 00:18; Admin Dose 100 MG; Start 09/29/16 at 23:30 Ondansetron HCl (Zofran Inj) 4 mg Q6H PRN IV NAUSEA AND/OR VOMITING Last administered on 09/30/16 03:58; Admin Dose 4 MG; Start 09/30/16 at 04:00 YAMILE LARA MD Sep 30, 2016 15:02
--- NOTE | 2016-09-30 17:25 | CONS ---
Date/Time of Note Date/Time of Note DATE: 09/30/16 TIME: 17:22 Assessment/Plan Assessment/Plan Additional Assessment/Plan IMPRESSION: 1. Gastrointestinal bleeding. 2. Multiple pelvic abscesses, status post drain.draining seropurulent liquid 3. Status post surgery for small-bowel obstruction, and also laparoscopic removal of the appendix. 4. Chronic obstructive pulmonary disease. 5. Hypertension. 6. Mild renal insufficiency. Plan discussed with and differed endoscopy, monitor H&H continue PPI no blood thinner Consultation Date/Type/Reason Admit Date/Time Sep 19, 2016 at 22:10 Initial Consult Date Type of Consultation: ID Referring Provider: YAMILE LARA MD 24 HR Interval Summary Free Text/Dictation as per pt.bleeding stopped Constitutional: improved, no complaints Exam/Review of Systems Vital Signs Vitals Vital Signs Date Time Temp Pulse Resp B/P Pulse Ox O2 Delivery O2 Flow Rate FiO2 09/30/16 16:48 97.0 85 19 119/66 97 09/30/16 15:00 Nasal Cannula 5.0 09/26/16 21:46 32 Intake and Output 09/29/16 09/29/16 09/30/16 15:00 23:00 07:00 Intake Total 850 ml 1250 ml Output Total 700 ml 900 ml Balance 150 ml 350 ml Exam Constitutional: alert, oriented, well developed Results Result Diagram: 09/30/16 1402 09/30/16 0715 Results 24 hrs Laboratory Tests Test 09/29/16 22:13 09/30/16 07:15 09/30/16 14:02 Hematocrit 28.5 #L 27.4 L 26.4 L Hemoglobin 9.4 #L 9.0 L 8.5 L Activated Partial Thromboplast Time 29.2 Alanine Aminotransferase (ALT/SGPT) 29 Albumin 2.3 L Albumin/Globulin Ratio 0.82 Alkaline Phosphatase 79 Anion Gap 13 Aspartate Amino Transf (AST/SGOT) 27 B-Type Natriuretic Peptide 1490 H Basophils # 0.0 Basophils % 0.1 Blood Urea Nitrogen 28 H Calcium Level 7.8 L Carbon Dioxide Level 25 Chloride Level 104 Creatinine 1.24 H Direct Bilirubin 0.00 Eosinophils # 0.2 Eosinophils % 1.2 Globulin 2.80 Glucose Level 103 INR International Normalized Ratio 1.06 Indirect Bilirubin 0.0 Lymphocytes # 0.9 Lymphocytes % 5.4 L Mean Corpuscular Hemoglobin 27.9 L Mean Corpuscular Hemoglobin Concent 32.8 Mean Corpuscular Volume 84.8 Mean Platelet Volume 10.0 Monocytes # 1.2 H Monocytes % 7.4 Neutrophils # 13.8 H Neutrophils % 85.0 H Nucleated Red Blood Cells # 0.0 Nucleated Red Blood Cells % 0.0 Platelet Count 237 Potassium Level 3.6 Prothrombin Time 13.8 Prothrombin Time Ratio 1.1 Red Blood Count 3.23 #L Red Cell Distribution Width 15.5 H Sodium Level 138 Total Bilirubin 0.0 L Total Protein 5.1 L White Blood Count 16.3 H Medications Medications Current Medications Salmeterol Xinafoate/ Fluticasone (Advair 250/50 Diskus) 1 inh BID INH Last administered on 09/30/16 08:58; Admin Dose 1 INH; Start 09/20/16 at 09:00 Tiotropium [place] (Spiriva) 1 inh DAILY INH Last administered on 09/30/16 12: 56; Admin Dose 1 INH; Start 09/20/16 at 09:00 Dorzolamide/ Timolol (Cosopt) 1 drop BID LEFT EYE Last administered on 09:00; Admin Dose 1 DROP; Start 09/20/16 at 13:30 Latanoprost (Xalatan) 1 drop DAILY LEFT EYE Last administered on 09/30/16 09: 00; Admin Dose 1 DROP; Start 09/20/16 at 13:30 IV Flush (NS 10 ml) 10 ml PRN PRN IV IV PROTOCOL; Start 09/21/16 at 17:30 Acetaminophen (Tylenol Liquid) 650 mg Q6H PRN NGT PAIN AND OR ELEVATED TEMP Last administered on 09/22/16 09:09; Admin Dose 650 MG; Start 09/22/16 at 00:20 Hydralazine HCl (Apresoline) 10 mg Q6H PRN IV for sbp>160 Last administered on 09/29/16 19:30; Admin Dose 10 MG; Start 09/27/16 at 08:00 Levofloxacin (Levaquin) 500 mg DAILY@06 PO Last administered on 09/30/16 06:11 ; Admin Dose 500 MG; Start 09/29/16 at 06:00 Metronidazole 500 mg 500 mg Q8 PO Last administered on 09/30/16 13:30; Admin Dose 500 MG; Start 09/28/16 at 22:00 Dextrose/Sodium Chloride (D5-1/2ns) 1,000 ml @ 75 mls/hr [id number] IV Last administered on 09/29/16 12:59; Admin Dose 75 MLS/HR; Start 09/29/16 at 10:30 Pantoprazole (Protonix Iv) 40 mg BID@06,18 IV Last administered on 09/30/16 06 :10; Admin Dose 40 MG; Start 09/30/16 at 06:00 Morphine Sulfate (morphine) 2 mg Q2H PRN IV pain Last administered on 23:30; Admin Dose 2 MG; Start 09/29/16 at 20:30 Hydralazine HCl (Apresoline) 25 mg TID PO Last administered on 09/29/16 20:44 ; Admin Dose 25 MG; Start 09/29/16 at 21:00 Sertraline HCl (Zoloft) 100 mg HS PO Last administered on 09/30/16 00:18; Admin Dose 100 MG; Start 09/29/16 at 23:30 Ondansetron HCl (Zofran Inj) 4 mg Q6H PRN IV NAUSEA AND/OR VOMITING Last administered on 09/30/16 03:58; Admin Dose 4 MG; Start 09/30/16 at 04:00 MICHELE MIRELES MD Sep 30, 2016 17:25
[2016-10-01] VITALS (12 sets, daily range): BP systolic 108–133; BP diastolic 55–61; PULSE 88–95; RESP 16–20
[2016-10-01 06:17] LABS: ADD SCAN DIFF NO
[2016-10-01 06:29] LABS: POTASSIUM 3.4 mmol/L (3.5-5.1)
[2016-10-01 06:31] LABS: CREATININE 1.15 mg/dl (0.44-1.00)
[2016-10-01 06:32] LABS: CALCIUM 7.5 mg/dl (8.4-10.2)
[2016-10-01 06:34] LABS: ABNORMAL IP MESSAGE 1; HEMATOCRIT 19.3 % (37.0-47.0); MEAN CORPUSCULAR HEMOGLOBIN 28.4 pg (29.0-33.0); MEAN CORPUSCULAR HGB CONC 32.6 g/dl (32.0-37.0); MEAN CORPUSCULAR VOLUME 86.9 fl (82.0-101.0); MEAN PLATELET VOLUME 10.1 fl (7.4-10.4); PLATELET COUNT 276 10^3/UL (140-415); RED BLOOD COUNT 2.22 10^6/ul (4.20-5.40); RED CELL DISTRIBUTION WIDTH 15.9 % (11.5-14.5); WHITE BLOOD COUNT 16.8 10^3/ul (4.8-10.8)
[2016-10-01] MEDS: DEXTROSE 5%-0.45% NACL 1,000 ML IV SCH (06:36)
[2016-10-01] MEDS: LEVOFLOXACIN 500 MG TAB PO SCH (06:37)
[2016-10-01] MEDS: metroNIDAZOLE 500 MG TAB PO SCH ×2 (06:37→14:19)
[2016-10-01 06:41] LABS: HEMOGLOBIN 6.3 g/dl (12.0-16.0)
[2016-10-01 08:18] LABS: HEMATOCRIT 24.1 % (37.0-47.0); HEMOGLOBIN 7.7 g/dl (12.0-16.0)
[2016-10-01] MEDS: SALMETEROL/FLUTICASONE 250/50 INHA INH SCH ×2 (08:45→21:36)
[2016-10-01] MEDS: DORZOLAMIDE/TIMOLOL 10 ML OPH LEFT EYE SCH ×2 (08:45→21:36)
[2016-10-01] MEDS: TIOTROPIUM 18 MCG CAPSULE INHA DEV INH SCH (08:45)
[2016-10-01 09:29] LABS: LYMPHOCYTES # 0.3 10^3/ul (0.8-2.9); MONOCYTE # 0.3 10^3/ul (0.3-0.9); NEUTROPHIL # 14.3 10^3/ul (1.6-7.5); SMUDGE CELLS% Rare
--- NOTE | 2016-10-01 12:07 | RADRPT ---
PROCEDURE: XR Chest. CLINICAL INDICATION: Shortness of breath. TECHNIQUE: Single frontal view. COMPARISON: 09/24/2016. FINDINGS: There is a right arm PICC line with the tip in the superior vena cava. There is mild atelectasis at the lung bases, slightly worse than seen previously. The lungs are otherwise clear. The heart size is normal. There is calcification in the aorta consistent with atherosclerosis. There is no pleural effusion. There is no pneumothorax. IMPRESSION: 1. Right arm PICC line. 2. Mild atelectasis at the lung bases, slightly worse than seen previously. 3. Atherosclerosis. RPTAT: QQ .Elvis Henderson MD, MD Date Time Electronically viewed and signed by .Elvis Henderson MD, MD on 10/01/2016 12:07 .R/
--- NOTE | 2016-10-01 12:52 | CONS ---
Date/Time of Note Date/Time of Note DATE: 10/01/16 TIME: 12:50 Assessment/Plan Assessment/Plan Additional Assessment/Plan 1. Sepsis. 2. Acute kidney injury secondary to acute tubular necrosis from sepsis.- improved to normal then again bumped to 1.2 09/29/2016 due to severe anemia causing ischemic prerenal azotemia and ATN 3. Acute hyperkalemia with metabolic acidosis likely secondary to acute kidney injury.- now resolved 4. Small bowel obstructions status post exploratory laparotomy and abdominal washout- on TPN currently 5. History of recent laparoscopic appendectomy. 6. History of hypertension 7. History of chronic obstructive pulmonary disease. 8. History of hypothyroidism. PLAN: cr slightly improved - stable compared to yesterday- s/p 2 U PRBC yesterday, Now Hb 9.0, electrolytes stable today kcl 20mEQ IV x 1 then add 20 kCl to IV fluids making good urine, K normal, expecting Cr to improve will follow up Consultation Date/Type/Reason Admit Date/Time Sep 19, 2016 at 22:10 Initial Consult Date Sep Type of Consultation: NEPHROLOGY Reason for Consultation acute kidney injury,hyperkalemia Referring Provider: YAMILE LARA MD 24 HR Interval Summary Free Text/Dictation Cr slightly improved, K low Exam/Review of Systems Vital Signs Vitals Vital Signs Date Time Temp Pulse Resp B/P Pulse Ox O2 Delivery O2 Flow Rate FiO2 10/01/16 12:37 89 10/01/16 11:53 97.4 19 128/60 97 10/01/16 08:10 Nasal Cannula 09/30/16 21:00 3.0 Intake and Output 09/30/16 09/30/16 10/01/16 15:00 23:00 07:00 Intake Total 1000 ml Output Total 800 ml Balance 200 ml Results Result Diagram: 10/01/16 0745 10/01/16 0550 Results 24 hrs Laboratory Tests Test 09/30/16 14:02 10/01/16 05:50 10/01/16 07:45 Hematocrit 26.4 L 19.3 #L 24.1 #L Hemoglobin 8.5 L 6.3 #*L 7.7 #L Anion Gap 11 Band Neutrophils % 5.0 Basophils # Basophils % Blood Urea Nitrogen 23 H Calcium Level 7.5 L Carbon Dioxide Level 27 Chloride Level 104 Creatinine 1.15 H Differential Comment MANUAL DIF Eosinophils # Eosinophils % Giant Platelets RARE Glucose Level 98 Lymphocytes # 0.3 L Lymphocytes % 2.0 L Mean Corpuscular Hemoglobin 28.4 L Mean Corpuscular Hemoglobin Concent 32.6 Mean Corpuscular Volume 86.9 Mean Platelet Volume 10.1 Metamyelocytes # 0.2 Metamyelocytes % 1.0 H Monocytes # 0.3 Monocytes % 2.0 Neutrophils # 14.3 H Neutrophils % 85.0 H Nucleated Red Blood Cells # Nucleated Red Blood Cells % Platelet Count 276 Potassium Level 3.4 L Promyelocytes # 0.8 Promyelocytes % 5.0 H Red Blood Count 2.22 #L Red Cell Distribution Width 15.9 H Smudge Cells Rare Sodium Level 139 White Blood Count 16.8 H Medications Medications Current Medications Salmeterol Xinafoate/ Fluticasone (Advair 250/50 Diskus) 1 inh BID INH Last administered on 10/01/16 08:45; Admin Dose 1 INH; Start 09/20/16 at 09:00 Tiotropium [place] (Spiriva) 1 inh DAILY INH Last administered on 10/01/16 08: 45; Admin Dose 1 INH; Start 09/20/16 at 09:00 Dorzolamide/ Timolol (Cosopt) 1 drop BID LEFT EYE Last administered on 08:45; Admin Dose 1 DROP; Start 09/20/16 at 13:30 Latanoprost (Xalatan) 1 drop DAILY LEFT EYE Last administered on 09/30/16 09: 00; Admin Dose 1 DROP; Start 09/20/16 at 13:30 IV Flush (NS 10 ml) 10 ml PRN PRN IV IV PROTOCOL; Start 09/21/16 at 17:30 Acetaminophen (Tylenol Liquid) 650 mg Q6H PRN NGT PAIN AND OR ELEVATED TEMP Last administered on 09/22/16 09:09; Admin Dose 650 MG; Start 09/22/16 at 00:20 Hydralazine HCl (Apresoline) 10 mg Q6H PRN IV for sbp>160 Last administered on 09/29/16 19:30; Admin Dose 10 MG; Start 09/27/16 at 08:00 Levofloxacin (Levaquin) 500 mg DAILY@06 PO Last administered on 10/01/16 06:37 ; Admin Dose 500 MG; Start 09/29/16 at 06:00 Metronidazole 500 mg 500 mg Q8 PO Last administered on 10/01/16 06:37; Admin Dose 500 MG; Start 09/28/16 at 22:00 Dextrose/Sodium Chloride (D5-1/2ns) 1,000 ml @ 75 mls/hr [id number] IV Last administered on 10/01/16 06:36; Admin Dose 75 MLS/HR; Start 09/29/16 at 10:30 Pantoprazole (Protonix Iv) 40 mg BID@06,18 IV Last administered on 09/30/16 18 :05; Admin Dose 40 MG; Start 09/30/16 at 06:00 Morphine Sulfate (morphine) 2 mg Q2H PRN IV pain Last administered on 23:30; Admin Dose 2 MG; Start 09/29/16 at 20:30 Hydralazine HCl (Apresoline) 25 mg TID PO Last administered on 10/01/16 08:46 ; Admin Dose 25 MG; Start 09/29/16 at 21:00 Sertraline HCl (Zoloft) 100 mg HS PO Last administered on 09/30/16 21:59; Admin Dose 100 MG; Start 09/29/16 at 23:30 Ondansetron HCl (Zofran Inj) 4 mg Q6H PRN IV NAUSEA AND/OR VOMITING Last administered on 09/30/16 03:58; Admin Dose 4 MG; Start 09/30/16 at 04:00 MADISYN MANUEL MD Oct 01, 2016 12:52
[2016-10-01] MEDS: ACETAMINOPHEN 650MG/20.3ML CUP NGT PRN ×2 (13:19→23:06)
--- NOTE | 2016-10-01 13:22 | CONS ---
Date/Time of Note Date/Time of Note DATE: 10/01/16 TIME: 13:19 Assessment/Plan Assessment/Plan Additional Assessment/Plan Small bowel obstruction with abdominal abscess status post repeat surgery Recent shock Acute blood loss anemia Diastolic congestive heart failure Acute appendicitis status post surgery Preserved ejection fraction Hypertension Acute kidney injury. -denies sob, still with recurrent anemia, awaiting repeat Hgb. Watch closely for decompensated CHF. BP controlled. Consultation Date/Type/Reason Admit Date/Time Sep 19, 2016 at 22:10 Type of Consultation: cv Referring Provider: YAMILE LARA MD 24 HR Interval Summary Free Text/Dictation no sob, cp, dizziness Exam/Review of Systems Vital Signs Vitals Vital Signs Date Time Temp Pulse Resp B/P Pulse Ox O2 Delivery O2 Flow Rate FiO2 10/01/16 12:37 89 10/01/16 11:53 97.4 19 128/60 97 10/01/16 08:10 Nasal Cannula 09/30/16 21:00 3.0 Intake and Output 09/30/16 09/30/16 10/01/16 15:00 23:00 07:00 Intake Total 1000 ml Output Total 800 ml Balance 200 ml Exam nad Constitutional: alert, oriented Head: normocephalic Neck: supple Respiratory: other (course bs, no wheeze) Cardiovascular: other (s1s2), regular rate and rhythm Gastrointestinal: bowel sounds, non-tender, soft Extremities: other (no edema) Results Result Diagram: 10/01/16 0745 10/01/16 0550 Results 24 hrs Laboratory Tests Test 09/30/16 14:02 10/01/16 05:50 10/01/16 07:45 Hematocrit 26.4 L 19.3 #L 24.1 #L Hemoglobin 8.5 L 6.3 #*L 7.7 #L Anion Gap 11 Band Neutrophils % 5.0 Basophils # Basophils % Blood Urea Nitrogen 23 H Calcium Level 7.5 L Carbon Dioxide Level 27 Chloride Level 104 Creatinine 1.15 H Differential Comment MANUAL DIF Eosinophils # Eosinophils % Giant Platelets RARE Glucose Level 98 Lymphocytes # 0.3 L Lymphocytes % 2.0 L Mean Corpuscular Hemoglobin 28.4 L Mean Corpuscular Hemoglobin Concent 32.6 Mean Corpuscular Volume 86.9 Mean Platelet Volume 10.1 Metamyelocytes # 0.2 Metamyelocytes % 1.0 H Monocytes # 0.3 Monocytes % 2.0 Neutrophils # 14.3 H Neutrophils % 85.0 H Nucleated Red Blood Cells # Nucleated Red Blood Cells % Platelet Count 276 Potassium Level 3.4 L Promyelocytes # 0.8 Promyelocytes % 5.0 H Red Blood Count 2.22 #L Red Cell Distribution Width 15.9 H Smudge Cells Rare Sodium Level 139 White Blood Count 16.8 H Medications Medications Current Medications Salmeterol Xinafoate/ Fluticasone (Advair 250/50 Diskus) 1 inh BID INH Last administered on 10/01/16 08:45; Admin Dose 1 INH; Start 09/20/16 at 09:00 Tiotropium [place] (Spiriva) 1 inh DAILY INH Last administered on 10/01/16 08: 45; Admin Dose 1 INH; Start 09/20/16 at 09:00 Dorzolamide/ Timolol (Cosopt) 1 drop BID LEFT EYE Last administered on 08:45; Admin Dose 1 DROP; Start 09/20/16 at 13:30 Latanoprost (Xalatan) 1 drop DAILY LEFT EYE Last administered on 09/30/16 09: 00; Admin Dose 1 DROP; Start 09/20/16 at 13:30 IV Flush (NS 10 ml) 10 ml PRN PRN IV IV PROTOCOL; Start 09/21/16 at 17:30 Acetaminophen (Tylenol Liquid) 650 mg Q6H PRN NGT PAIN AND OR ELEVATED TEMP Last administered on 09/22/16 09:09; Admin Dose 650 MG; Start 09/22/16 at 00:20 Hydralazine HCl (Apresoline) 10 mg Q6H PRN IV for sbp>160 Last administered on 09/29/16 19:30; Admin Dose 10 MG; Start 09/27/16 at 08:00 Levofloxacin (Levaquin) 500 mg DAILY@06 PO Last administered on 10/01/16 06:37 ; Admin Dose 500 MG; Start 09/29/16 at 06:00 Metronidazole 500 mg 500 mg Q8 PO Last administered on 10/01/16 06:37; Admin Dose 500 MG; Start 09/28/16 at 22:00 Dextrose/Sodium Chloride (D5-1/2ns) 1,000 ml @ 75 mls/hr [id number] IV Last administered on 10/01/16 06:36; Admin Dose 75 MLS/HR; Start 09/29/16 at 10:30 Pantoprazole (Protonix Iv) 40 mg BID@06,18 IV Last administered on 09/30/16 18 :05; Admin Dose 40 MG; Start 09/30/16 at 06:00 Morphine Sulfate (morphine) 2 mg Q2H PRN IV pain Last administered on 23:30; Admin Dose 2 MG; Start 09/29/16 at 20:30 Hydralazine HCl (Apresoline) 25 mg TID PO Last administered on 10/01/16 08:46 ; Admin Dose 25 MG; Start 09/29/16 at 21:00 Sertraline HCl (Zoloft) 100 mg HS PO Last administered on 09/30/16 21:59; Admin Dose 100 MG; Start 09/29/16 at 23:30 Ondansetron HCl 4 mg 4 mg Q6H PRN IV NAUSEA AND/OR VOMITING Last administered on 09/30/16 03:58; Admin Dose 4 MG; Start 09/30/16 at 04:00 Potassium Chloride/Sodium Chloride (KCl/NS) 110 ml @ 55 mls/hr ONCE ONCE IVPB ; Start 10/01/16 at 13:00; Stop 10/01/16 at 14:59; Status Taco Velasquez DO Oct 01, 2016 13:22
[2016-10-01] MEDS: LATANOPROST 0.005% 2.5 ML OPH LEFT EYE SCH (13:41)
[2016-10-01] MEDS: D5W-0.45 NACL + KCL 20 MEQ 1,000 ML IV SCH (14:18)
[2016-10-01] MEDS ORDERED: POTASSIUM CHLORIDE 20 MEQ in SOD CHLORIDE 0.9% 100 ML IVPB ONE (14:30)
[2016-10-01 15:12] LABS: HEMATOCRIT 23.1 % (37.0-47.0); HEMOGLOBIN 7.4 g/dl (12.0-16.0)
--- NOTE | 2016-10-01 15:29 | PN ---
Date/Time of Note Date/Time of Note DATE: 10/01/16 TIME: 15:25 Assessment/Plan VTE Prophylaxis VTE Prophylaxis Intervention: SCD's Lines/Catheters IV Catheter Type (from Nrs): PICC Line Central line still needed: Yes Urinary Cath still in place: Yes Reason Cath still needed: other (indicate) Assessment/Plan Chief Complaint/Hosp Course Assessment/Plan 1. Small bowel obstruction s/p Recent Laproscopic Appendectomy Status post small bowel resection x2. Continue postsurgical care, pain management and IV antibiotics Diet as per general surgery recommendations Abdominal x-ray negative for obstruction 2. Sepsis Likely secondary to intra-abdominal abscess and postoperatively infectious disease doctor has been consulted, continue Zosyn and Flagyl Follow-up blood culture, continue aggressive IV fluids 3. Hyperkalemia Resolved status post IV fluid, nephrology has been consulted, follow-up electrolytes in a.m. 4 . Abdominal abscess x3 . Status post drainage by interventional radiologist and Diagnostic laparoscopy, Exploratory laparotomy and abdominal washout. Status post CT-guided drainage by interventional radiologist 09/28/2016 , continue aggressive IV antibiotics Follow-up with general surgery recommendations 3. COPD 4. Essential hypertension, stable 5. Acute anemia, questionable GI bleed, type and cross and transfuse 1 units of packed red blood cell, follow up hemoglobin hematocrit status post transfusion Follow-up collision repair technician regarding colonoscopy and endoscopy 6. Acute renal insufficiency, likely secondary to dehydration versus anemia, follow-up renal panel in a.m. nephrology has been consulted 7. Hypothyroidism 8 . Hyperlipidemia 9. GI bleed, gastroenterology has been consulted, follow up GI recommendation for colonoscopy and endoscopy, continue PPI We will continue monitor patient closely for recommendation management treatment as clinical course Problems: Subjective 24 Hr Interval Summary Free Text/Dictation Patient denies of any chest pain or shortness of breath Continues to complain of having abdominal discomfort Minimal p.o. intake 2 bowel movement today which has been dark stool with evidence of blood Exam/Review of Systems Vital Signs Vitals Vital Signs Date Time Temp Pulse Resp B/P Pulse Ox O2 Delivery O2 Flow Rate FiO2 10/01/16 12:37 89 10/01/16 11:53 97.4 19 128/60 97 10/01/16 08:10 Nasal Cannula 09/30/16 21:00 3.0 Intake and Output 09/30/16 09/30/16 10/01/16 15:00 23:00 07:00 Intake Total 1000 ml Output Total 800 ml Balance 200 ml Exam General: The patient is well-developed, Not in acute distress. HEENT: Atraumatic, normocephalic. The pupils are equal and round . Neck: Supple with full range of motion. Chest: Normal expansion of the thorax during inspiration Lungs: Clear to auscultation bilaterally Heart: Normal S1-S2, Regular rhythm and rate. Abdomen: Soft , minimally tender, nondistended , bowel sounds are present. Drain in place Extremities: Normal to inspection, no edema no cyanosis Neurologic: Normal mental status,The patient is awake, alert and oriented . Results Result Diagram: 10/01/16 1443 10/01/16 0550 Results 24 hrs Laboratory Tests Test 10/01/16 05:50 10/01/16 07:45 10/01/16 14:43 Anion Gap 11 Band Neutrophils % 5.0 Basophils # Basophils % Blood Urea Nitrogen 23 H Calcium Level 7.5 L Carbon Dioxide Level 27 Chloride Level 104 Creatinine 1.15 H Differential Comment MANUAL DIF Eosinophils # Eosinophils % Giant Platelets RARE Glucose Level 98 Hematocrit 19.3 #L 24.1 #L 23.1 L Hemoglobin 6.3 #*L 7.7 #L 7.4 L Lymphocytes # 0.3 L Lymphocytes % 2.0 L Mean Corpuscular Hemoglobin 28.4 L Mean Corpuscular Hemoglobin Concent 32.6 Mean Corpuscular Volume 86.9 Mean Platelet Volume 10.1 Metamyelocytes # 0.2 Metamyelocytes % 1.0 H Monocytes # 0.3 Monocytes % 2.0 Neutrophils # 14.3 H Neutrophils % 85.0 H Nucleated Red Blood Cells # Nucleated Red Blood Cells % Platelet Count 276 Potassium Level 3.4 L Promyelocytes # 0.8 Promyelocytes % 5.0 H Red Blood Count 2.22 #L Red Cell Distribution Width 15.9 H Smudge Cells Rare Sodium Level 139 White Blood Count 16.8 H Medications Medications Current Medications Salmeterol Xinafoate/ Fluticasone (Advair 250/50 Diskus) 1 inh BID INH Last administered on 10/01/16 08:45; Admin Dose 1 INH; Start 09/20/16 at 09:00 Tiotropium [place] (Spiriva) 1 inh DAILY INH Last administered on 10/01/16 08: 45; Admin Dose 1 INH; Start 09/20/16 at 09:00 Dorzolamide/ Timolol (Cosopt) 1 drop BID LEFT EYE Last administered on 08:45; Admin Dose 1 DROP; Start 09/20/16 at 13:30 Latanoprost (Xalatan) 1 drop DAILY LEFT EYE Last administered on 10/01/16 13: 41; Admin Dose 1 DROP; Start 09/20/16 at 13:30 IV Flush (NS 10 ml) 10 ml PRN PRN IV IV PROTOCOL; Start 09/21/16 at 17:30 Acetaminophen (Tylenol Liquid) 650 mg Q6H PRN NGT PAIN AND OR ELEVATED TEMP Last administered on 10/01/16 13:19; Admin Dose 650 MG; Start 09/22/16 at 00:20 Hydralazine HCl (Apresoline) 10 mg Q6H PRN IV for sbp>160 Last administered on 09/29/16 19:30; Admin Dose 10 MG; Start 09/27/16 at 08:00 Levofloxacin (Levaquin) 500 mg DAILY@06 PO Last administered on 10/01/16 06:37 ; Admin Dose 500 MG; Start 09/29/16 at 06:00 Metronidazole (Flagyl) 500 mg Q8 PO Last administered on 10/01/16 14:19; Admin Dose 500 MG; Start 09/28/16 at 22:00 Pantoprazole (Protonix Iv) 40 mg BID@06,18 IV Last administered on 09/30/16 18 :05; Admin Dose 40 MG; Start 09/30/16 at 06:00 Morphine Sulfate (morphine) 2 mg Q2H PRN IV pain Last administered on 23:30; Admin Dose 2 MG; Start 09/29/16 at 20:30 Hydralazine HCl (Apresoline) 25 mg TID PO Last administered on 10/01/16 08:46 ; Admin Dose 25 MG; Start 09/29/16 at 21:00 Sertraline HCl (Zoloft) 100 mg HS PO Last administered on 09/30/16 21:59; Admin Dose 100 MG; Start 09/29/16 at 23:30 Ondansetron HCl 4 mg 4 mg Q6H PRN IV NAUSEA AND/OR VOMITING Last administered on 09/30/16 03:58; Admin Dose 4 MG; Start 09/30/16 at 04:00 Potassium Chloride 20 meq/ Sodium Chloride 110 ml @ 55 mls/hr ONCE ONCE IVPB Last administered on 10/01/16 15:03; Admin Dose 55 MLS/HR; Start 10/01/16 at 14 :30; Stop 10/01/16 at 16:29 Potassium Chloride/Dextrose/ Sod Cl (D5-1/2ns + KCl 20 Meq) 1,000 ml @ 75 mls/ hr [id number] IV Last administered on 10/01/16 14:18; Admin Dose 75 MLS/HR; Start 10/01/16 at 14:00 YAMILE LARA MD Oct 01, 2016 15:29
[2016-10-01] MEDS ORDERED: FERROUS SULFATE 60 MG/ML 5ML CUP NGT ONE (15:30)
--- NOTE | 2016-10-01 16:25 | PN ---
DATE: 10/01/2016 SUBJECTIVE: Ms. Aguila is now postoperative day 12 from a small bowel resection. This was compli cated by upper GI bleed, which seems to be resolving. The patient is resting comfortably. She did have a few bowel movements overnight. OBJECTIVE VITAL SIGNS: She is currently afebrile. Vital signs stable. ABDOMEN: Soft, nontender, nondistended. Wound is clean, dry and intact. LABORATORY DATA: Today reveal hematocrit of 24, a WBC of 17. Her sodium is 139, potassium 3.4, chl oride 104, CO2 of 27, BUN and creatinine 23 and 1.15 and a glucose of 98. ASSESSMENT AND PLAN: Ms. Aguila is now postoperative day 12 from a small bowel resection complica briana by an upper gastrointestinal bleed. 1. H and H will be ordered for 2:00. 2. Continue current diet. 3. She has likely stopped bleeding. If so, she will be ready to be transferred to rehabilitation. Dictated By: TRISTAN MYLES/VU Conf#: [id number] DID#: [id number]
--- NOTE | 2016-10-01 17:17 | CONS ---
Date/Time of Note Date/Time of Note DATE: 10/01/16 TIME: 17:13 Assessment/Plan Assessment/Plan Additional Assessment/Plan Additional Assessment/Plan IMPRESSION: 1. Gastrointestinal bleeding. 2. Multiple pelvic abscesses, status post drain.draining seropurulent liquid 3. Status post surgery for small-bowel obstruction, and also laparoscopic removal of the appendix. 4. Chronic obstructive pulmonary disease. 5. Hypertension. 6. Mild renal insufficiency. Plan discussed with and defer endoscopy,pt. and Dr Quinn still wants to wait for few days and postpone endoscopy monitor H&H continue PPI no blood thinner discussed with pt and Consultation Date/Type/Reason Admit Date/Time Sep 19, 2016 at 22:10 Type of Consultation: cv Referring Provider: YAMILE LARA MD 24 HR Interval Summary Constitutional: no complaints Exam/Review of Systems Vital Signs Vitals Vital Signs Date Time Temp Pulse Resp B/P Pulse Ox O2 Delivery O2 Flow Rate FiO2 10/01/16 16:43 97.2 93 19 132/59 97 10/01/16 08:10 Nasal Cannula 09/30/16 21:00 3.0 Intake and Output 09/30/16 09/30/16 10/01/16 15:00 23:00 07:00 Intake Total 1000 ml Output Total 800 ml Balance 200 ml Exam Constitutional: alert, oriented, well developed Psych: nl mood/affect, no complaints Head: atraumatic, normocephalic Eyes: EOMI, PERRL, nl conjunctiva, nl lids, nl sclera ENMT: nl external ears & nose, nl lips & teeth, nl nasal mucosa & septum Neck: non-tender, supple Respiratory: clear to auscultation, normal air movement Cardiovascular: nl pulses, regular rate and rhythm Gastrointestinal: nl liver, spleen, non-tender, soft Musculoskeletal: nl extremities to inspection, nl gait and stance Extremities: normal pulses Neurological: CHEMICAL DETECTION EXPERT II-XII intact, nl mental status, nl speech, nl strength Skin: nl turgor, No rash or lesions Lymph: nl lymph nodes Results Result Diagram: 10/01/16 1443 10/01/16 0550 Results 24 hrs Laboratory Tests Test 10/01/16 05:50 10/01/16 07:45 10/01/16 14:43 Anion Gap 11 Band Neutrophils % 5.0 Basophils # Basophils % Blood Urea Nitrogen 23 H Calcium Level 7.5 L Carbon Dioxide Level 27 Chloride Level 104 Creatinine 1.15 H Differential Comment MANUAL DIF Eosinophils # Eosinophils % Giant Platelets RARE Glucose Level 98 Hematocrit 19.3 #L 24.1 #L 23.1 L Hemoglobin 6.3 #*L 7.7 #L 7.4 L Lymphocytes # 0.3 L Lymphocytes % 2.0 L Mean Corpuscular Hemoglobin 28.4 L Mean Corpuscular Hemoglobin Concent 32.6 Mean Corpuscular Volume 86.9 Mean Platelet Volume 10.1 Metamyelocytes # 0.2 Metamyelocytes % 1.0 H Monocytes # 0.3 Monocytes % 2.0 Neutrophils # 14.3 H Neutrophils % 85.0 H Nucleated Red Blood Cells # Nucleated Red Blood Cells % Platelet Count 276 Potassium Level 3.4 L Promyelocytes # 0.8 Promyelocytes % 5.0 H Red Blood Count 2.22 #L Red Cell Distribution Width 15.9 H Smudge Cells Rare Sodium Level 139 White Blood Count 16.8 H Medications Medications Current Medications Salmeterol Xinafoate/ Fluticasone (Advair 250/50 Diskus) 1 inh BID INH Last administered on 10/01/16 08:45; Admin Dose 1 INH; Start 09/20/16 at 09:00 Tiotropium [place] (Spiriva) 1 inh DAILY INH Last administered on 10/01/16 08: 45; Admin Dose 1 INH; Start 09/20/16 at 09:00 Dorzolamide/ Timolol (Cosopt) 1 drop BID LEFT EYE Last administered on 08:45; Admin Dose 1 DROP; Start 09/20/16 at 13:30 Latanoprost (Xalatan) 1 drop DAILY LEFT EYE Last administered on 10/01/16 13: 41; Admin Dose 1 DROP; Start 09/20/16 at 13:30 IV Flush (NS 10 ml) 10 ml PRN PRN IV IV PROTOCOL; Start 09/21/16 at 17:30 Acetaminophen (Tylenol Liquid) 650 mg Q6H PRN NGT PAIN AND OR ELEVATED TEMP Last administered on 10/01/16 13:19; Admin Dose 650 MG; Start 09/22/16 at 00:20 Hydralazine HCl (Apresoline) 10 mg Q6H PRN IV for sbp>160 Last administered on 09/29/16 19:30; Admin Dose 10 MG; Start 09/27/16 at 08:00 Levofloxacin (Levaquin) 500 mg DAILY@06 PO Last administered on 10/01/16 06:37 ; Admin Dose 500 MG; Start 09/29/16 at 06:00 Metronidazole (Flagyl) 500 mg Q8 PO Last administered on 10/01/16 14:19; Admin Dose 500 MG; Start 09/28/16 at 22:00 Pantoprazole (Protonix Iv) 40 mg BID@06,18 IV Last administered on 09/30/16 18 :05; Admin Dose 40 MG; Start 09/30/16 at 06:00 Morphine Sulfate (morphine) 2 mg Q2H PRN IV pain Last administered on 23:30; Admin Dose 2 MG; Start 09/29/16 at 20:30 Hydralazine HCl (Apresoline) 25 mg TID PO Last administered on 10/01/16 08:46 ; Admin Dose 25 MG; Start 09/29/16 at 21:00 Sertraline HCl (Zoloft) 100 mg HS PO Last administered on 09/30/16 21:59; Admin Dose 100 MG; Start 09/29/16 at 23:30 Ondansetron HCl 4 mg 4 mg Q6H PRN IV NAUSEA AND/OR VOMITING Last administered on 09/30/16 03:58; Admin Dose 4 MG; Start 09/30/16 at 04:00 Potassium Chloride/Dextrose/ Sod Cl (D5-1/2ns + KCl 20 Meq) 1,000 ml @ 75 mls/ hr [id number] IV Last administered on 10/01/16 14:18; Admin Dose 75 MLS/HR; Start 10/01/16 at 14:00 Ferrous Sulfate (Feosol Liquid Cup) 300 mg DAILY NGT ; Start 10/02/16 at 09:00 Ascorbic Acid (Vitamin C) 500 mg DAILY NGT ; Start 10/02/16 at 09:00 MICHELE MIRELES MD Oct 01, 2016 17:17
[2016-10-01] MEDS: PANTOPRAZOLE 40 MG INJ IV SCH (17:39)
[2016-10-01] MEDS: FERROUS SULFATE (EC) 325 MG TAB PO SCH (18:00)
[2016-10-01] MEDS: morphine 2 MG INJ IV PRN (18:01)
--- NOTE | 2016-10-01 20:48 | CONS ---
Date/Time of Note Date/Time of Note DATE: 10/01/16 TIME: 20:33 Assessment/Plan Assessment/Plan Chief Complaint/Hosp Course ID PROGRESS NOTE CURRENT ABX=> Levaquin + Flagyl * s/p Zosyn * s/p Diflucan POD #3-> s/p ABD/Pelvic ABSCESS Drain 2 w/Micro (-)FINAL 24H INTERVAL SUMMARY * Lethragic * Acute anemia -- s/p 2Units PRBCs Tx today * Afebrile, VSS, NAD, WBC remains elevated ?if she is tolerating PO ABX? * 10/01/16 CXR today IMPRESSION: 1. Right arm PICC line. 2. Mild atelectasis at the lung bases, slightly worse than seen previously. 3. Atherosclerosis. PHYSICAL EXAMINATION: GENERAL: VSS, NAD HEENT: Unremarkable -- NECK: Supple, trachea midline. CHEST: Rise symmetrical, without dyspnea on observation HEART: Pulse RRR ABDOMEN: Soft, (+)Drain EXTREMITIES: Warm ID ASSESSMENT 86 yo F admit with: 1. Systemic inflammatory response syndrome with persistent leukocytosis, multifactorial. 2. Acute on chronic anemia=> s/p 2Units PRBCs Tx today 10/01/16 3. Pelvic abscess status post CT-guided aspiration with catheter placement. * POD #3-> s/p ABD/Pelvic ABSCESS Drain 09/28/16 w/Micro (-)48H 4. Status post small bowel resection and abscess drainage with exploratory laparotomy on 09/20/2016. 5. Chronic obstructive pulmonary disease. * BLL pleural effusions on admission CXR 6. Acute on chronic kidney disease. 7. Yeast colonization = On TPN 8. Diarrhea w/(-)C.Diff toxin ( )MRSA Nares INVASIVES: PICC (09/21/16), DRAIN ABX ALLERGY: KNDA CURRENT ABX: DAY #3 => Levaquin + Flagyl + restart Diflucan * s/p Zosyn * s/p Diflucan ID RECOMMENDATIONS 1. Start Cancidas IV per concern yeast bowel colonization on TPN increases risk of disseminated fungemia * Cancidas preferred over Diflucan per no drug-drug interactions w/current meds 2. Change PO ABX to IV = concern not tolerating/not absorbing PO ABX * Change Levaquin to Cipro IV 400mg Q12 = less likely to prolong QT * Change Flagyl PO to IV 3. Monitor WBC if does not normalize may need to add Rx empiric for Enterococcal coverage 4. GIB ? - follow GI recommendations . . Problems: Consultation Date/Type/Reason Admit Date/Time Sep 19, 2016 at 22:10 Type of Consultation: ID Referring Provider: YAMILE LARA MD Exam/Review of Systems Vital Signs Vitals Vital Signs Date Time Temp Pulse Resp B/P Pulse Ox O2 Delivery O2 Flow Rate FiO2 10/01/16 20:17 98.2 93 17 133/61 91 10/01/16 17:55 2.0 10/01/16 08:10 Nasal Cannula Intake and Output 09/30/16 09/30/16 10/01/16 15:00 23:00 07:00 Intake Total 1000 ml Output Total 800 ml Balance 200 ml Results Result Diagram: 10/01/16 1443 10/01/16 0550 Results 24 hrs Laboratory Tests Test 10/01/16 05:50 10/01/16 07:45 10/01/16 14:43 Anion Gap 11 Band Neutrophils % 5.0 Basophils # Basophils % Blood Urea Nitrogen 23 H Calcium Level 7.5 L Carbon Dioxide Level 27 Chloride Level 104 Creatinine 1.15 H Differential Comment MANUAL DIF Eosinophils # Eosinophils % Giant Platelets RARE Glucose Level 98 Hematocrit 19.3 #L 24.1 #L 23.1 L Hemoglobin 6.3 #*L 7.7 #L 7.4 L Lymphocytes # 0.3 L Lymphocytes % 2.0 L Mean Corpuscular Hemoglobin 28.4 L Mean Corpuscular Hemoglobin Concent 32.6 Mean Corpuscular Volume 86.9 Mean Platelet Volume 10.1 Metamyelocytes # 0.2 Metamyelocytes % 1.0 H Monocytes # 0.3 Monocytes % 2.0 Neutrophils # 14.3 H Neutrophils % 85.0 H Nucleated Red Blood Cells # Nucleated Red Blood Cells % Platelet Count 276 Potassium Level 3.4 L Promyelocytes # 0.8 Promyelocytes % 5.0 H Red Blood Count 2.22 #L Red Cell Distribution Width 15.9 H Smudge Cells Rare Sodium Level 139 White Blood Count 16.8 H Medications Medications Current Medications Salmeterol Xinafoate/ Fluticasone (Advair 250/50 Diskus) 1 inh BID INH Last administered on 10/01/16 08:45; Admin Dose 1 INH; Start 09/20/16 at 09:00 Tiotropium [place] (Spiriva) 1 inh DAILY INH Last administered on 10/01/16 08: 45; Admin Dose 1 INH; Start 09/20/16 at 09:00 Dorzolamide/ Timolol (Cosopt) 1 drop BID LEFT EYE Last administered on 08:45; Admin Dose 1 DROP; Start 09/20/16 at 13:30 Latanoprost (Xalatan) 1 drop DAILY LEFT EYE Last administered on 10/01/16 13: 41; Admin Dose 1 DROP; Start 09/20/16 at 13:30 IV Flush (NS 10 ml) 10 ml PRN PRN IV IV PROTOCOL; Start 09/21/16 at 17:30 Acetaminophen (Tylenol Liquid) 650 mg Q6H PRN NGT PAIN AND OR ELEVATED TEMP Last administered on 10/01/16 13:19; Admin Dose 650 MG; Start 09/22/16 at 00:20 Hydralazine HCl (Apresoline) 10 mg Q6H PRN IV for sbp>160 Last administered on 09/29/16 19:30; Admin Dose 10 MG; Start 09/27/16 at 08:00 Levofloxacin (Levaquin) 500 mg DAILY@06 PO Last administered on 10/01/16 06:37 ; Admin Dose 500 MG; Start 09/29/16 at 06:00 Metronidazole (Flagyl) 500 mg Q8 PO Last administered on 10/01/16 14:19; Admin Dose 500 MG; Start 09/28/16 at 22:00 Pantoprazole (Protonix Iv) 40 mg BID@06,18 IV Last administered on 10/01/16 17 :39; Admin Dose 40 MG; Start 09/30/16 at 06:00 Morphine Sulfate (morphine) 2 mg Q2H PRN IV pain Last administered on 18:01; Admin Dose 2 MG; Start 09/29/16 at 20:30 Hydralazine HCl (Apresoline) 25 mg TID PO Last administered on 10/01/16 08:46 ; Admin Dose 25 MG; Start 09/29/16 at 21:00 Sertraline HCl (Zoloft) 100 mg HS PO Last administered on 09/30/16 21:59; Admin Dose 100 MG; Start 09/29/16 at 23:30 Ondansetron HCl 4 mg 4 mg Q6H PRN IV NAUSEA AND/OR VOMITING Last administered on 09/30/16 03:58; Admin Dose 4 MG; Start 09/30/16 at 04:00 Potassium Chloride/Dextrose/ Sod Cl (D5-1/2ns + KCl 20 Meq) 1,000 ml @ 75 mls/ hr [id number] IV Last administered on 10/01/16 14:18; Admin Dose 75 MLS/HR; Start 10/01/16 at 14:00 Ferrous Sulfate (Feosol Liquid Cup) 300 mg DAILY NGT ; Start 10/02/16 at 09:00 Ascorbic Acid (Vitamin C) 500 mg DAILY NGT ; Start 10/02/16 at 09:00 Ferrous Sulfate (Ferrous Sulfate (Ec)) 325 mg DAILY PO Last administered on 18:00; Admin Dose 325 MG; Start 10/01/16 at 17:25 BRENT COLLINS NP Oct 01, 2016 20:44
[2016-10-01] MEDS ORDERED: CASPOFUNGIN 70 MG in SOD CHLORIDE 0.9% 250 ML IVPB ONE (21:00)
[2016-10-01] MEDS: metroNIDAZOLE 500 MG/NS (PMX) 100 ML IVPB SCH (21:36)
[2016-10-01] MEDS: ONDANSETRON 4 MG INJ IV PRN (21:37)
[2016-10-01] MEDS: SERTRALINE 100 MG TAB PO SCH (21:37)
[2016-10-01] MEDS: GUAIFENESIN LA 600 MG TABSR PO SCH (21:50)
[2016-10-01] MEDS: CIPROFLOXACIN 400MG/D5W 200 ML IVPB SCH (23:06)
[2016-10-01] MEDS: ZOLPIDEM 5 MG TAB PO PRN (23:06)
[2016-10-02] VITALS (17 sets, daily range): BP systolic 107–148; BP diastolic 51–80; PULSE 80–100; RESP 12–20
[2016-10-02] MEDS: metroNIDAZOLE 500 MG/NS (PMX) 100 ML IVPB SCH ×3 (05:40→23:17)
[2016-10-02] MEDS: PANTOPRAZOLE 40 MG INJ IV SCH ×2 (05:40→18:23)
[2016-10-02] MEDS: morphine 2 MG INJ IV PRN ×2 (05:41→20:32)
[2016-10-02] MEDS: D5W-0.45 NACL + KCL 20 MEQ 1,000 ML IV SCH ×2 (05:41→17:02)
[2016-10-02] MEDS: HYDROCODONE/APAP (5/325) TAB PO PRN ×2 (06:14→19:39)
[2016-10-02 07:40] LABS: ADD SCAN DIFF NO
[2016-10-02 07:57] LABS: BASOPHILS % 0.2 % (0.0-2.0); EOSINOPHILS # 0.2 10^3/ul (0.0-0.5); EOSINOPHILS % 0.9 % (0.0-7.0); HEMATOCRIT 25.4 % (37.0-47.0); HEMOGLOBIN 8.1 g/dl (12.0-16.0); LYMPHOCYTES # 0.9 10^3/ul (0.8-2.9); LYMPHOCYTES % 4.8 % (15.0-51.0); MEAN CORPUSCULAR HEMOGLOBIN 28.2 pg (29.0-33.0); MEAN CORPUSCULAR HGB CONC 31.9 g/dl (32.0-37.0); MEAN CORPUSCULAR VOLUME 88.5 fl (82.0-101.0); MEAN PLATELET VOLUME 10.1 fl (7.4-10.4); MONOCYTE # 1.5 10^3/ul (0.3-0.9); MONOCYTES % 8.2 % (0.0-11.0); NEUTROPHIL # 15.6 10^3/ul (1.6-7.5); NEUTROPHILS % 85.2 % (39.0-77.0); PLATELET COUNT 310 10^3/UL (140-415); RED BLOOD COUNT 2.87 10^6/ul (4.20-5.40); RED CELL DISTRIBUTION WIDTH 15.8 % (11.5-14.5); WHITE BLOOD COUNT 18.3 10^3/ul (4.8-10.8)
[2016-10-02 08:04] LABS: POTASSIUM 3.7 mmol/L (3.5-5.1)
[2016-10-02 08:06] LABS: ALBUMIN/GLOBULIN RATIO 0.74; CREATININE 1.07 mg/dl (0.44-1.00); TOTAL PROTEIN 4.7 g/dl (6.1-8.1)
[2016-10-02 08:07] LABS: CALCIUM 7.3 mg/dl (8.4-10.2)
[2016-10-02] MEDS: ASCORBIC ACID 500 MG TAB NGT SCH (08:43)
[2016-10-02] MEDS: FERROUS SULFATE (EC) 325 MG TAB PO SCH (08:43)
[2016-10-02] MEDS: GUAIFENESIN LA 600 MG TABSR PO SCH ×2 (08:46→23:17)
[2016-10-02] MEDS: DORZOLAMIDE/TIMOLOL 10 ML OPH LEFT EYE SCH ×2 (08:47→23:17)
[2016-10-02] MEDS: SALMETEROL/FLUTICASONE 250/50 INHA INH SCH ×2 (08:47→23:18)
[2016-10-02] MEDS: TIOTROPIUM 18 MCG CAPSULE INHA DEV INH SCH (08:54)
[2016-10-02] MEDS ORDERED: FERROUS SULFATE 60 MG/ML 5ML CUP NGT SCH (09:00)
[2016-10-02] MEDS: LATANOPROST 0.005% 2.5 ML OPH LEFT EYE SCH (09:00)
[2016-10-02] MEDS: CIPROFLOXACIN 400MG/D5W 200 ML IVPB SCH (09:10)
[2016-10-02] MEDS ORDERED: METOCLOPRAMIDE 10 MG INJ IV ONE (12:55)
[2016-10-02 13:22] LABS: HEMATOCRIT 25.3 % (37.0-47.0); HEMOGLOBIN 8.1 g/dl (12.0-16.0)
[2016-10-02] MEDS ORDERED: FENTAnyl 50 MCG/ML VIAL ONE (14:15)
--- NOTE | 2016-10-02 14:22 | PN ---
DATE: 10/02/2016 SUBJECTIVE: No events overnight. The patient is alert, lying comfortably in bed. Complaining of a bdominal pain. Tolerating diet. No fevers. She did have some loose stools, which are resolved now . WBC today 18.3, platelets 310, neutrophils 85.2, no bands. BUN 16, creatinine 1.07. ANTIMICROBIALS: Patient is on: 1. IV Cancidas. 2. IV Flagyl. 3. IV Cipro. INDWELLINGS: She has right-sided intra-abdominal drainage catheter. PHYSICAL EXAMINATION: GENERAL: This is a fragile, elderly woman, who is in no distress. HEENT: Head atraumatic, normocephalic. Sclerae anicteric. Buccal mucosa pink. NECK: Supple. Trachea midline. CHEST: Rise symmetrical. Breath sounds clear. HEART: S1, S2. ABDOMEN: Soft . Guarded on palpation. Bowel tones present. EXTREMITIES: No cyanosis. ASSESSMENT: 1. Systemic inflammatory response syndrome with persistent leukocytosis, rule out recurrent intraab dominal abscess. 2. Multiple intra-abdominal abscesses, status post CT-guided aspiration with catheter placement on 09/28/2016. 3. Status post small bowel resection and abscess drainage with exploratory laparotomy on 09/20/2016 . 4. Acute on chronic kidney disease. 5. Chronic obstructive pulmonary disease/ 6. Anemia secondary to gastrointestinal bleeding. PLAN: The patient remains clinically unchanged, still with significant abdominal discomfort, still with persistent leukocytosis. She is being seen by surgical team. Diet advanced to regular. Recom mend repeat CT of the abdomen given persistent leukocytosis. Dictated By: YASMANY BECERRA [employer] PL[employer]TER for THOMAS WE[employer]STER/VU Conf#: [id number] DID#: [id number]
[2016-10-02] MEDS ORDERED: FENTAnyl 50 MCG/ML VIAL IV PRN (14:30)
[2016-10-02] MEDS ORDERED: ONDANSETRON 4 MG INJ IV PRN (14:30)
[2016-10-02] MEDS ORDERED: morphine (1 MG/ML) 10ML SYRINGE IV PRN (14:30)
--- NOTE | 2016-10-02 14:43 | PN ---
Date/Time of Note Date/Time of Note DATE: 10/02/16 TIME: 14:36 Assessment/Plan VTE Prophylaxis VTE Prophylaxis Intervention: SCD's Lines/Catheters IV Catheter Type (from Nrs): PICC Line Central line still needed: Yes Urinary Cath still in place: Yes Reason Cath still needed: other (indicate) Assessment/Plan Chief Complaint/Hosp Course Assessment/Plan 1. Small bowel obstruction s/p Recent Laproscopic Appendectomy Status post small bowel resection x2. Continue postsurgical care, pain management and IV antibiotics Diet as per general surgery recommendations Abdominal x-ray negative for obstruction 2. Sepsis Likely secondary to intra-abdominal abscess and postoperatively infectious disease doctor has been consulted, continue Zosyn and Flagyl Follow-up blood culture, continue aggressive IV fluids 3. Hyperkalemia Resolved status post IV fluid, nephrology has been consulted, follow-up electrolytes in a.m. 4 . Abdominal abscess x3 . Status post drainage by interventional radiologist and Diagnostic laparoscopy, Exploratory laparotomy and abdominal washout. Status post CT-guided drainage by interventional radiologist 09/28/2016 , continue aggressive IV antibiotics Follow-up with general surgery recommendations 3. COPD 4. Essential hypertension, stable 5. Acute anemia, questionable GI bleed, status post transfusion of packed red blood cell, follow up hemoglobin hematocrit every 6 hours Status post colonoscopy and endoscopy Plan for bleeding scan today 6. Acute renal insufficiency, likely secondary to dehydration versus anemia, follow-up renal panel in a.m. nephrology has been consulted 7. Hypothyroidism 8 . Hyperlipidemia We will continue monitor patient closely for recommendation management treatment as clinical course Problems: Subjective 24 Hr Interval Summary Free Text/Dictation Patient has gone down for colonoscopy and endoscopy According to linen controller the colonoscopy and endoscopy did not demonstrate any acute bleed Procedure and the finding was explained to patient's daughter Exam/Review of Systems Vital Signs Vitals Vital Signs Date Time Temp Pulse Resp B/P Pulse Ox O2 Delivery O2 Flow Rate FiO2 10/02/16 13:20 97.3 90 112/55 97 Nasal Cannula 5.0 10/02/16 08:23 19 Intake and Output 10/01/16 10/01/16 10/02/16 15:00 23:00 07:00 Intake Total 725 ml 610 ml 250 ml Output Total 200 ml Balance 525 ml 610 ml 250 ml Exam General: The patient is not in any acute distress HEENT: Atraumatic, normocephalic. The pupils are equal and round . Neck: Supple with full range of motion. Chest: Normal expansion of the thorax during inspiration Lungs: Clear to auscultation bilaterally Heart: Normal S1-S2, Regular rhythm and rate. Abdomen: Soft , mildly tender, nondistended , bowel sounds are present. Drain in place, surgical site is dry and clean Extremities: Normal to inspection, no edema no cyanosis Neurologic: Normal mental status,The patient is awake, alert and oriented . Results Result Diagram: 10/02/16 1300 10/02/16 0640 Results 24 hrs Laboratory Tests Test 10/01/16 14:43 10/02/16 06:40 10/02/16 13:00 Hematocrit 23.1 L 25.4 L 25.3 L Hemoglobin 7.4 L 8.1 L 8.1 L Alanine Aminotransferase (ALT/SGPT) 26 Albumin 2.0 L Albumin/Globulin Ratio 0.74 Alkaline Phosphatase 58 Anion Gap 12 Aspartate Amino Transf (AST/SGOT) 23 Basophils # 0.0 Basophils % 0.2 Blood Urea Nitrogen 16 Calcium Level 7.3 L Carbon Dioxide Level 24 Chloride Level 106 Creatinine 1.07 H Direct Bilirubin 0.00 Eosinophils # 0.2 Eosinophils % 0.9 Globulin 2.70 Glucose Level 88 Indirect Bilirubin 0.0 Lymphocytes # 0.9 Lymphocytes % 4.8 L Mean Corpuscular Hemoglobin 28.2 L Mean Corpuscular Hemoglobin Concent 31.9 L Mean Corpuscular Volume 88.5 Mean Platelet Volume 10.1 Monocytes # 1.5 H Monocytes % 8.2 Neutrophils # 15.6 H Neutrophils % 85.2 H Nucleated Red Blood Cells # 0.0 Nucleated Red Blood Cells % 0.0 Platelet Count 310 Potassium Level 3.7 Red Blood Count 2.87 #L Red Cell Distribution Width 15.8 H Sodium Level 138 Total Bilirubin 0.0 L Total Protein 4.7 L White Blood Count 18.3 H Medications Medications Current Medications Salmeterol Xinafoate/ Fluticasone (Advair 250/50 Diskus) 1 inh BID INH Last administered on 10/02/16 08:47; Admin Dose 1 INH; Start 09/20/16 at 09:00 Tiotropium [place] (Spiriva) 1 inh DAILY INH Last administered on 10/02/16 08: 54; Admin Dose 1 INH; Start 09/20/16 at 09:00 Dorzolamide/ Timolol (Cosopt) 1 drop BID LEFT EYE Last administered on 08:47; Admin Dose 1 DROP; Start 09/20/16 at 13:30 Latanoprost (Xalatan) 1 drop DAILY LEFT EYE Last administered on 10/02/16 09: 00; Admin Dose 1 DROP; Start 09/20/16 at 13:30 IV Flush (NS 10 ml) 10 ml PRN PRN IV IV PROTOCOL; Start 09/21/16 at 17:30 Acetaminophen (Tylenol Liquid) 650 mg Q6H PRN NGT PAIN AND OR ELEVATED TEMP Last administered on 10/01/16 23:06; Admin Dose 650 MG; Start 09/22/16 at 00:20 Hydralazine HCl (Apresoline) 10 mg Q6H PRN IV for sbp>160 Last administered on 09/29/16 19:30; Admin Dose 10 MG; Start 09/27/16 at 08:00 Pantoprazole (Protonix Iv) 40 mg BID@06,18 IV Last administered on 10/02/16 05 :40; Admin Dose 40 MG; Start 09/30/16 at 06:00 Morphine Sulfate (morphine) 2 mg Q2H PRN IV pain Last administered on 05:41; Admin Dose 2 MG; Start 09/29/16 at 20:30 Hydralazine HCl (Apresoline) 25 mg TID PO Last administered on 10/02/16 08:46 ; Admin Dose 25 MG; Start 09/29/16 at 21:00 Sertraline HCl (Zoloft) 100 mg HS PO Last administered on 10/01/16 21:37; Admin Dose 100 MG; Start 09/29/16 at 23:30 Ondansetron HCl 4 mg 4 mg Q6H PRN IV NAUSEA AND/OR VOMITING Last administered on 10/01/16 21:37; Admin Dose 4 MG; Start 09/30/16 at 04:00 Potassium Chloride/Dextrose/ Sod Cl (D5-1/2ns + KCl 20 Meq) 1,000 ml @ 75 mls/ hr [id number] IV Last administered on 10/02/16 05:41; Admin Dose 75 MLS/HR; Start 10/01/16 at 14:00 Ferrous Sulfate (Feosol Liquid Cup) 300 mg DAILY NGT Last administered on 08:46; Admin Dose 300 MG; Start 10/02/16 at 09:00 Ascorbic Acid (Vitamin C) 500 mg DAILY NGT Last administered on 10/02/16 08:43 ; Admin Dose 500 MG; Start 10/02/16 at 09:00 Ferrous Sulfate 325 mg 325 mg DAILY PO Last administered on 10/02/16 08:43; Admin Dose 325 MG; Start 10/01/16 at 17:25 Caspofungin 50 mg/ Sodium Chloride 250 ml @ 250 mls/hr Q24H IVPB ; Start at 21:00 Ciprofloxacin/ Dextrose 200 ml @ 200 mls/hr Q12 IVPB Last administered on 10/02 09:10; Admin Dose 200 MLS/HR; Start 10/01/16 at 21:00 Metronidazole (Flagyl 500 Mg (Pmx)) 100 ml @ 100 mls/hr Q8 IVPB Last administered on 10/02/16 05:40; Admin Dose 100 MLS/HR; Start 10/01/16 at 22:00 Guaifenesin (Mucinex) 600 mg Q12 PO Last administered on 10/02/16 08:46; Admin Dose 600 MG; Start 10/01/16 at 21:30 Acetaminophen/ Hydrocodone Bitart ([place] (5/325)) 1 tab Q6H PRN PO PAIN Last administered on 10/02/16 06:14; Admin Dose 1 TAB; Start 10/02/16 at 05:30 YAMILE LARA MD Oct 02, 2016 14:43
--- NOTE | 2016-10-02 17:50 | CONS ---
Date/Time of Note Date/Time of Note DATE: 10/02/16 TIME: 17:47 Assessment/Plan Assessment/Plan Additional Assessment/Plan 1. Sepsis 2/2 to # 2 2. Multiple intra-abdominal abscesses, status post CT-guided aspiration with catheter placement on 09/28/2016.Status post small bowel resection and abscess drainage with exploratory laparotomy on 09/20/2016. 2. Acute kidney injury secondary to acute tubular necrosis from sepsis.- improved to 1.02 today 3. Acute hyperkalemia with metabolic acidosis likely secondary to acute kidney injury.- now resolved 4. Small bowel obstructions status post exploratory laparotomy and abdominal washout- on TPN currently 5. History of recent laparoscopic appendectomy. 6. History of hypertension 7. History of chronic obstructive pulmonary disease. 8. History of hypothyroidism. PLAN: cr slightly improved - Hb 8.1 continue current IVF with KCL making good urine, K normal, expecting Cr to improve will follow up Consultation Date/Type/Reason Admit Date/Time Sep 19, 2016 at 22:10 Initial Consult Date Sep Type of Consultation: NEPHROLOGY Referring Provider: YAMILE LARA MD Exam/Review of Systems Vital Signs Vitals Vital Signs Date Time Temp Pulse Resp B/P Pulse Ox O2 Delivery O2 Flow Rate FiO2 10/02/16 16:26 98.4 99 20 134/60 92 10/02/16 14:40 Nasal Cannula 2.0 Intake and Output 10/01/16 10/01/16 10/02/16 15:00 23:00 07:00 Intake Total 725 ml 610 ml 250 ml Output Total 200 ml Balance 525 ml 610 ml 250 ml Exam HEENT: Head atraumatic, normocephalic. Sclerae anicteric. Buccal mucosa pink. NECK: Supple. Trachea midline. CHEST: Rise symmetrical. Breath sounds clear. HEART: S1, S2. ABDOMEN: Soft . Guarded on palpation. Bowel tones present. EXTREMITIES: No cyanosis. Results Result Diagram: 10/02/16 1300 10/02/16 0640 Results 24 hrs Laboratory Tests Test 10/02/16 06:40 10/02/16 13:00 Alanine Aminotransferase (ALT/SGPT) 26 Albumin 2.0 L Albumin/Globulin Ratio 0.74 Alkaline Phosphatase 58 Anion Gap 12 Aspartate Amino Transf (AST/SGOT) 23 Basophils # 0.0 Basophils % 0.2 Blood Urea Nitrogen 16 Calcium Level 7.3 L Carbon Dioxide Level 24 Chloride Level 106 Creatinine 1.07 H Direct Bilirubin 0.00 Eosinophils # 0.2 Eosinophils % 0.9 Globulin 2.70 Glucose Level 88 Hematocrit 25.4 L 25.3 L Hemoglobin 8.1 L 8.1 L Indirect Bilirubin 0.0 Lymphocytes # 0.9 Lymphocytes % 4.8 L Mean Corpuscular Hemoglobin 28.2 L Mean Corpuscular Hemoglobin Concent 31.9 L Mean Corpuscular Volume 88.5 Mean Platelet Volume 10.1 Monocytes # 1.5 H Monocytes % 8.2 Neutrophils # 15.6 H Neutrophils % 85.2 H Nucleated Red Blood Cells # 0.0 Nucleated Red Blood Cells % 0.0 Platelet Count 310 Potassium Level 3.7 Red Blood Count 2.87 #L Red Cell Distribution Width 15.8 H Sodium Level 138 Total Bilirubin 0.0 L Total Protein 4.7 L White Blood Count 18.3 H Medications Medications Current Medications Salmeterol Xinafoate/ Fluticasone (Advair 250/50 Diskus) 1 inh BID INH Last administered on 10/02/16 08:47; Admin Dose 1 INH; Start 09/20/16 at 09:00 Tiotropium [place] (Spiriva) 1 inh DAILY INH Last administered on 10/02/16 08: 54; Admin Dose 1 INH; Start 09/20/16 at 09:00 Dorzolamide/ Timolol (Cosopt) 1 drop BID LEFT EYE Last administered on 08:47; Admin Dose 1 DROP; Start 09/20/16 at 13:30 Latanoprost (Xalatan) 1 drop DAILY LEFT EYE Last administered on 10/02/16 09: 00; Admin Dose 1 DROP; Start 09/20/16 at 13:30 IV Flush (NS 10 ml) 10 ml PRN PRN IV IV PROTOCOL; Start 09/21/16 at 17:30 Acetaminophen (Tylenol Liquid) 650 mg Q6H PRN NGT PAIN AND OR ELEVATED TEMP Last administered on 10/01/16 23:06; Admin Dose 650 MG; Start 09/22/16 at 00:20 Hydralazine HCl (Apresoline) 10 mg Q6H PRN IV for sbp>160 Last administered on 09/29/16 19:30; Admin Dose 10 MG; Start 09/27/16 at 08:00 Pantoprazole (Protonix Iv) 40 mg BID@06,18 IV Last administered on 10/02/16 05 :40; Admin Dose 40 MG; Start 09/30/16 at 06:00 Morphine Sulfate (morphine) 2 mg Q2H PRN IV pain Last administered on 05:41; Admin Dose 2 MG; Start 09/29/16 at 20:30 Hydralazine HCl (Apresoline) 25 mg TID PO Last administered on 10/02/16 08:46 ; Admin Dose 25 MG; Start 09/29/16 at 21:00 Sertraline HCl (Zoloft) 100 mg HS PO Last administered on 10/01/16 21:37; Admin Dose 100 MG; Start 09/29/16 at 23:30 Ondansetron HCl 4 mg 4 mg Q6H PRN IV NAUSEA AND/OR VOMITING Last administered on 10/01/16 21:37; Admin Dose 4 MG; Start 09/30/16 at 04:00 Potassium Chloride/Dextrose/ Sod Cl (D5-1/2ns + KCl 20 Meq) 1,000 ml @ 75 mls/ hr [id number] IV Last administered on 10/02/16 17:02; Admin Dose 75 MLS/HR; Start 10/01/16 at 14:00 Ascorbic Acid (Vitamin C) 500 mg DAILY NGT Last administered on 10/02/16 08:43 ; Admin Dose 500 MG; Start 10/02/16 at 09:00 Ferrous Sulfate 325 mg 325 mg DAILY PO Last administered on 10/02/16 08:43; Admin Dose 325 MG; Start 10/01/16 at 17:25 Caspofungin 50 mg/ Sodium Chloride 250 ml @ 250 mls/hr Q24H IVPB ; Start at 21:00 Ciprofloxacin/ Dextrose 200 ml @ 200 mls/hr Q12 IVPB Last administered on 10/02 09:10; Admin Dose 200 MLS/HR; Start 10/01/16 at 21:00 Metronidazole (Flagyl 500 Mg (Pmx)) 100 ml @ 100 mls/hr Q8 IVPB Last administered on 10/02/16 15:25; Admin Dose 100 MLS/HR; Start 10/01/16 at 22:00 Guaifenesin (Mucinex) 600 mg Q12 PO Last administered on 10/02/16 08:46; Admin Dose 600 MG; Start 10/01/16 at 21:30 Acetaminophen/ Hydrocodone Bitart ([place] (5/325)) 1 tab Q6H PRN PO PAIN Last administered on 10/02/16 06:14; Admin Dose 1 TAB; Start 10/02/16 at 05:30 MADISYN MANUEL MD Oct 02, 2016 17:50
[2016-10-02] MEDS: ZOLPIDEM 5 MG TAB PO PRN (23:17)
[2016-10-02] MEDS: SERTRALINE 100 MG TAB PO SCH (23:17)
[2016-10-02] MEDS: ACETAMINOPHEN 650MG/20.3ML CUP NGT PRN (23:17)
--- NOTE | 2016-10-02 23:53 | RADRPT ---
AMENDMENT: 10/03/2016 1:59:15 PM Bailey Olmedo MD Delayed images of the abdomen were obtained at 16 hours post injection, which do not reveal new abno rmal areas of increased activity within the abdomen and pelvis. PROCEDURE: Gastrointestinal bleeding scan CLINICAL INDICATION: 86 -year-old patient with bleeding. Small bowel obstruction TECHNIQUE: Following the intravenous injection of 23.6 mCi of Tc-99m labeled red blood cells, mult iple anterior dynamic images of the abdomen were obtained up to 60 minutes post injection. COMPARISON: No prior gastrointestinal bleeding scans. CT abdomen and pelvis 09/27/2016 FINDINGS: No definite abnormal focal areas of increased uptake are seen in the abdomen and pelvis up to 60 min utes post injection. Physiologic activity is seen in the liver, spleen, vessels, bladder. RPTAT:HJJR IMPRESSION: No definite abnormal focal areas of increased uptake in the abdomen and pelvis up to 60 minutes post injection. .Bailey Olmedo MD, MD Date Time Electronically viewed and signed by .Bailey Olmedo MD, MD on 10/03/2016 13:59 .L/
[2016-10-03] VITALS (12 sets, daily range): BP systolic 99–135; BP diastolic 51–63; PULSE 90–98; RESP 18–20
[2016-10-03] MEDS: CIPROFLOXACIN 400MG/D5W 200 ML IVPB SCH ×3 (00:17→21:00)
[2016-10-03] MEDS: CASPOFUNGIN 50 MG in SOD CHLORIDE 0.9% 250 ML IVPB SCH ×2 (01:26→21:00)
--- NOTE | 2016-10-03 01:29 | GILP ---
DATE OF PROCEDURE: INDICATION: An 86-year-old female undergoing this procedure for upper GI bleeding manifested in the form of melenic stool. The patient required multiple transfusions. Finally got approval from Dr. Quinn to proceed with the procedure. The risks of the procedure, related and unrelated complicatio ns, anesthetic risk, alternatives discussed. Informed consent was obtained. DESCRIPTION OF PROCEDURE: The patient was brought to the GI lab, sedated by the anesthesiologist. After optimum sedation, scope was passed with much ease into esophagus. Purple-colored liquid was s een in the esophagus mixed with some food. The cope was advanced further down. Z-line appeared nor mal. No Kayla-Clemons tear identified. Stomach mucosa had no altered blood. The duodenum, first a nd second part appeared normal. Bile was normal in color. There was a green-colored tablet identif ied in the second part of the duodenum. Again, no active bleeding or ____ blood was seen. There wa s some redness upon the posterior aspect of the body of the stomach. No active bleeding was seen. Whether this was due to the suction or gastritis difficult to say. Scope was then removed with good patient tolerance. Digital examination done after the removal of the scope, and on rectal examinat ion, maroonish and burgundy stool and clots were coming out. IMPRESSION: 1. Gastritis, otherwise negative. 2. Normal esophagus. 3. No varicose vein. 4. No Kayla-Clemons tear. 5. Normal duodenum. PLAN AT THIS POINT: Continue PPI. Will do bleeding scan. I called Dr. Quinn, discussed the case with him and will monitor H and H closely. Dictated By: MICHELE NGUYỄN/VU Conf#: [id number] DID#: [id number]
[2016-10-03 01:56] LABS: HEMATOCRIT 22.4 % (37.0-47.0); HEMOGLOBIN 7.3 g/dl (12.0-16.0)
[2016-10-03] MEDS: metroNIDAZOLE 500 MG/NS (PMX) 100 ML IVPB SCH ×3 (05:59→22:18)
[2016-10-03] MEDS: D5W-0.45 NACL + KCL 20 MEQ 1,000 ML IV SCH ×3 (05:59→22:14)
[2016-10-03] MEDS: PANTOPRAZOLE 40 MG INJ IV SCH ×2 (05:59→18:33)
[2016-10-03 06:22] LABS: ADD SCAN DIFF NO
[2016-10-03 06:54] LABS: ABNORMAL IP MESSAGE 1; BASOPHILS % 0.2 % (0.0-2.0); EOSINOPHILS # 0.1 10^3/ul (0.0-0.5); EOSINOPHILS % 0.7 % (0.0-7.0); HEMATOCRIT 23.9 % (37.0-47.0); HEMOGLOBIN 7.4 g/dl (12.0-16.0); LYMPHOCYTES # 1.1 10^3/ul (0.8-2.9); LYMPHOCYTES % 6.4 % (15.0-51.0); MEAN CORPUSCULAR VOLUME 90.5 fl (82.0-101.0); MEAN PLATELET VOLUME 9.9 fl (7.4-10.4); MONOCYTE # 1.5 10^3/ul (0.3-0.9); MONOCYTES % 8.4 % (0.0-11.0); NEUTROPHILS % 83.5 % (39.0-77.0); PLATELET COUNT 365 10^3/UL (140-415); RED BLOOD COUNT 2.64 10^6/ul (4.20-5.40); RED CELL DISTRIBUTION WIDTH 15.8 % (11.5-14.5)
--- NOTE | 2016-10-03 06:55 | PN ---
DATE: 10/02/2016 SUBJECTIVE: Ms. Aguila is hospital postoperative day 13 from a small-bowel resection. She is sti ll having some bloody bowel movements. She did undergo endoscopy today which was normal. She is st ill also complaining of abdominal pain. She is not tolerating p.o. PHYSICAL EXAMINATION: VITAL SIGNS: She is currently afebrile. Vital signs stable. ABDOMEN: Soft, mildly distended. Her wound is clean, dry and intact. She is incontinent and had m ultiple bowel movements today. LABORATORIES: Today reveal white count 18, hematocrit 25, and a repeat H and H at 1:00 was 25. Sod ium 138, potassium 3.7, chloride 106, CO2 24, BUN and creatinine 16 over 1 and a glucose of 88. A bleeding scan is pending. A CT is scheduled for tomorrow. ASSESSMENT AND PLAN: Ms. Aguila an 86-year-old female status post complicated course after ____. 1. Will recheck H and H in the morning. Has bleeding scan ordered for today as the upper endoscopy was normal. 2. Will obtain repeat CT of the abdomen and pelvis due to increasing pain and elevated white count. 3. Continue soft diet. 4. I am leaving town tomorrow and will be back on late evening of the . Dr. Bajwa is covering in my absence. Dictated By: TRISTAN MYLES/VU Conf#: [id number] DID#: [id number]
[2016-10-03] MEDS: TIOTROPIUM 18 MCG CAPSULE INHA DEV INH SCH (08:44)
[2016-10-03] MEDS: SALMETEROL/FLUTICASONE 250/50 INHA INH SCH ×2 (08:45→21:57)
[2016-10-03] MEDS: FERROUS SULFATE (EC) 325 MG TAB PO SCH (08:49)
[2016-10-03] MEDS: DORZOLAMIDE/TIMOLOL 10 ML OPH LEFT EYE SCH ×2 (08:49→22:02)
[2016-10-03] MEDS: ASCORBIC ACID 500 MG TAB NGT SCH (08:50)
[2016-10-03] MEDS: GUAIFENESIN LA 600 MG TABSR PO SCH ×2 (08:50→21:58)
[2016-10-03] MEDS: LATANOPROST 0.005% 2.5 ML OPH LEFT EYE SCH (09:00)
--- NOTE | 2016-10-03 09:44 | CONS ---
Date/Time of Note Date/Time of Note DATE: 10/03/16 TIME: 09:42 Assessment/Plan Assessment/Plan Additional Assessment/Plan 1. Sepsis 2/2 to # 2 2. Multiple intra-abdominal abscesses, status post CT-guided aspiration with catheter placement on 09/28/2016.Status post small bowel resection and abscess drainage with exploratory laparotomy on 09/20/2016. 2. Acute kidney injury secondary to acute tubular necrosis from sepsis.- improved to 1.02 yesterday, no chemistry today to review 3. Acute hyperkalemia with metabolic acidosis likely secondary to acute kidney injury.- now resolved 4. Small bowel obstructions status post exploratory laparotomy and abdominal washout- on TPN currently 5. History of recent laparoscopic appendectomy. 6. History of hypertension 7. History of chronic obstructive pulmonary disease. 8. History of hypothyroidism. PLAN: cr slightly improved- no chemistry today to review - Hb 8.1 continue current IVF with KCL making good urine, K normal, expecting Cr to improve will follow up Consultation Date/Type/Reason Admit Date/Time Sep 19, 2016 at 22:10 Initial Consult Date Sep Type of Consultation: NEPHROLOGY Reason for Consultation Acute kidney injury,Hyperkalemia Referring Provider: YAMILE LARA MD 24 HR Interval Summary Free Text/Dictation , pt had 4 liquid black colored stools- Hb 7.4, no chemistry today to review Exam/Review of Systems Vital Signs Vitals Vital Signs Date Time Temp Pulse Resp B/P Pulse Ox O2 Delivery O2 Flow Rate FiO2 10/03/16 08:03 97.8 89 20 99/51 95 10/03/16 02:45 Nasal Cannula 2.0 Intake and Output 10/02/16 10/02/16 10/03/16 15:00 23:00 07:00 Intake Total 275 ml 775 ml Output Total 10 ml 750 ml Balance 265 ml 25 ml Exam HEENT: Head atraumatic, normocephalic. Sclerae anicteric. Buccal mucosa pink. NECK: Supple. Trachea midline. CHEST: Rise symmetrical. Breath sounds clear. HEART: S1, S2. ABDOMEN: Soft . Guarded on palpation. Bowel tones present. EXTREMITIES: No cyanosis. Results Result Diagram: 10/03/16 0540 10/02/16 0640 Results 24 hrs Laboratory Tests Test 10/02/16 13:00 10/03/16 00:25 10/03/16 05:40 Hematocrit 25.3 L 22.4 L 23.9 L Hemoglobin 8.1 L 7.3 L 7.4 L Basophils # 0.0 Basophils % 0.2 Eosinophils # 0.1 Eosinophils % 0.7 Lymphocytes # 1.1 Lymphocytes % 6.4 L Mean Corpuscular Hemoglobin 28.0 L Mean Corpuscular Hemoglobin Concent 31.0 L Mean Corpuscular Volume 90.5 Mean Platelet Volume 9.9 Monocytes # 1.5 H Monocytes % 8.4 Neutrophils # 15.0 H Neutrophils % 83.5 H Nucleated Red Blood Cells # 0.0 Nucleated Red Blood Cells % 0.0 Platelet Count 365 Red Blood Count 2.64 L Red Cell Distribution Width 15.8 H White Blood Count 18.0 H Medications Medications Current Medications Salmeterol Xinafoate/ Fluticasone (Advair 250/50 Diskus) 1 inh BID INH Last administered on 10/03/16 08:45; Admin Dose 1 INH; Start 09/20/16 at 09:00 Tiotropium [place] (Spiriva) 1 inh DAILY INH Last administered on 10/03/16 08: 44; Admin Dose 1 INH; Start 09/20/16 at 09:00 Dorzolamide/ Timolol (Cosopt) 1 drop BID LEFT EYE Last administered on 08:49; Admin Dose 1 DROP; Start 09/20/16 at 13:30 Latanoprost (Xalatan) 1 drop DAILY LEFT EYE Last administered on 10/02/16 09: 00; Admin Dose 1 DROP; Start 09/20/16 at 13:30 IV Flush (NS 10 ml) 10 ml PRN PRN IV IV PROTOCOL; Start 09/21/16 at 17:30 Acetaminophen (Tylenol Liquid) 650 mg Q6H PRN NGT PAIN AND OR ELEVATED TEMP Last administered on 10/02/16 23:17; Admin Dose 650 MG; Start 09/22/16 at 00:20 Hydralazine HCl (Apresoline) 10 mg Q6H PRN IV for sbp>160 Last administered on 09/29/16 19:30; Admin Dose 10 MG; Start 09/27/16 at 08:00 Pantoprazole (Protonix Iv) 40 mg BID@,18 IV Last administered on 10/03/16 05 :59; Admin Dose 40 MG; Start 09/30/16 at 06:00 Morphine Sulfate (morphine) 2 mg Q2H PRN IV pain Last administered on 20:32; Admin Dose 2 MG; Start 09/29/16 at 20:30 Hydralazine HCl (Apresoline) 25 mg TID PO Last administered on 10/03/16 08:50 ; Admin Dose 25 MG; Start 09/29/16 at 21:00 Sertraline HCl (Zoloft) 100 mg HS PO Last administered on 10/02/16 23:17; Admin Dose 100 MG; Start 09/29/16 at 23:30 Ondansetron HCl 4 mg 4 mg Q6H PRN IV NAUSEA AND/OR VOMITING Last administered on 10/01/16 21:37; Admin Dose 4 MG; Start 09/30/16 at 04:00 Potassium Chloride/Dextrose/ Sod Cl (D5-1/2ns + KCl 20 Meq) 1,000 ml @ 75 mls/ hr [id number] IV Last administered on 10/02/16 17:02; Admin Dose 75 MLS/HR; Start 10/01/16 at 14:00 Ascorbic Acid (Vitamin C) 500 mg DAILY NGT Last administered on 10/03/16 08:50 ; Admin Dose 500 MG; Start 10/02/16 at 09:00 Ferrous Sulfate 325 mg 325 mg DAILY PO Last administered on 10/03/16 08:49; Admin Dose 325 MG; Start 10/01/16 at 17:25 Caspofungin 50 mg/ Sodium Chloride 250 ml @ 250 mls/hr Q24H IVPB Last administered on 10/03/16 01:26; Admin Dose 250 MLS/HR; Start 10/02/16 at 21:00 Ciprofloxacin/ Dextrose 200 ml @ 200 mls/hr Q12 IVPB Last administered on 10/03 08:49; Admin Dose 200 MLS/HR; Start 10/01/16 at 21:00 Metronidazole (Flagyl 500 Mg (Pmx)) 100 ml @ 100 mls/hr Q8 IVPB Last administered on 10/03/16 05:59; Admin Dose 100 MLS/HR; Start 10/01/16 at 22:00 Guaifenesin (Mucinex) 600 mg Q12 PO Last administered on 10/03/16 08:50; Admin Dose 600 MG; Start 10/01/16 at 21:30 Acetaminophen/ Hydrocodone Bitart ([place] (5/325)) 1 tab Q6H PRN PO PAIN Last administered on 10/02/16 19:39; Admin Dose 1 TAB; Start 10/02/16 at 05:30 MADISYN MANUEL MD Oct 03, 2016 09:44
[2016-10-03] MEDS ORDERED: IODIXANOL LOCM 100 ML BTL ONE (09:54)
[2016-10-03] MEDS ORDERED: SOD CHLORIDE 0.9% 100 ML ONE (09:54)
--- NOTE | 2016-10-03 10:59 | RADRPT ---
PROCEDURE: CT Abdomen and Pelvis with contrast. CLINICAL INDICATION: Elevated white count, bowel obstruction, abdominal pain TECHNIQUE: CT of the abdomen and pelvis was performed on a multi-detector scanner following the un complicated IV administration of 99 cc of Visipaque 320. Coronal and sagittal images were reformatt ed from the axial data set. One or more of the following dose reduction techniques were used: autom ated exposure control, adjustment of the mA and/or kV according to patient size, use of iterative r econstruction technique. CTDI = 10.56 mGy. DLP = 605.46 mGy-cm. COMPARISON: CT, 09/27/2016 FINDINGS: CT abdomen: There are moderate to large bilateral pleural effusions, with associated bibasilar atelectasis. Bib asilar pulmonary emphysema is noted. The heart size is normal, without pericardial effusion. Coron cecilia arterial calcifications are present. Liver demonstrates scattered small benign cysts, stable ov er time. Gallbladder, biliary tree, pancreas, spleen, adrenal glands and kidneys are unremarkable e xcept for benign renal cysts. No urolithiasis or obstructive uropathy is identified. The stomach i s grossly unremarkable. There is no abdominal aortic aneurysm or dissection. Aortic vascular calcifications are present. T here is no retroperitoneal lymphadenopathy. The kwadwo hepatis region is clear. CT pelvis: There has been interval placement of a pigtail drainage catheter in the right lower quadrant, with n ear-complete resolution of the previously seen abscess in this location. Additional abscess collecti ons are seen in the central mesenteric fat, measuring 5.6 x 2.7 x 2.3 cm (3-101, previously 6.4 x 3. 6 x 4.0 cm), and in the central/left pelvis, measuring 8 x 2.6 x 3.9 cm (3-116, previously 8 x 2.3 x 4.7 cm). The patient is again noted to be status post partial small bowel resection. Small extral uminal gas bubbles are identified adjacent to a small bowel anastomosis in the periumbilical region (3-93), concerning for anastomotic leak in this location. There is no evidence of bowel obstruction . No diverticulosis, diverticulitis, colitis or appendicitis is seen. Urinary bladder, uterus and adnexa are grossly unremarkable. No pelvic mass or lymphadenopathy is identified. The surrounding osseous structures are remarkable for minimal degenerative spondylosis of the spine No osteolytic or osteoblastic lesion is detected. IMPRESSION: 1. Small extraluminal gas bubbles are seen adjacent to a small bowel anastomosis in the periumbilic al abdomen, new when compared to the prior CT, concerning for possible anastomotic leak in this loca tion. 2. There has been interval placement of a right lower quadrant percutaneous drainage catheter, with near-complete resolution of the previously seen abscess in this location. 3. Additional abscess collections are seen in the central mesenteric fat and central/left pelvis, m ildly decreased in size when compared to the prior CT. 4. No bowel obstruction is identified. 5. There are moderate to large bilateral pleural effusions, increased in size when compared to the prior CT. Mild bibasilar pulmonary emphysema is noted. 6. Coronary arterial and aortic atherosclerotic calcifications are present. RPTAT: EE .Zack Gray MD, MD Date Time Electronically viewed and signed by .Zack Gray MD, on 10/03/2016 10:58 .R/
--- NOTE | 2016-10-03 11:27 | CONS ---
Date/Time of Note Date/Time of Note DATE: 10/03/16 TIME: 11:25 Assessment/Plan Assessment/Plan Additional Assessment/Plan IMPRESSION: 1. Gastrointestinal bleeding.bleeding scan negative,EGD negative 2. Multiple pelvic abscesses, status post drain.draining seropurulent liquid 3. Status post surgery for small-bowel obstruction, and also laparoscopic removal of the appendix. 4. Chronic obstructive pulmonary disease. 5. Hypertension. 6. Mild renal insufficiency. 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 black in color Exam/Review of Systems Vital Signs Vitals Vital Signs Date Time Temp Pulse Resp B/P Pulse Ox O2 Delivery O2 Flow Rate FiO2 10/03/16 08:03 97.8 89 20 99/51 95 10/03/16 02:45 Nasal Cannula 2.0 Intake and Output 10/02/16 10/02/16 10/03/16 15:00 23:00 07:00 Intake Total 275 ml 775 ml Output Total 10 ml 750 ml Balance 265 ml 25 ml Exam Constitutional: alert, oriented, well developed Psych: nl mood/affect, no complaints Head: atraumatic, normocephalic Eyes: EOMI, PERRL, nl conjunctiva, nl lids, nl sclera ENMT: nl external ears & nose, nl lips & teeth, nl nasal mucosa & septum Neck: non-tender, supple Respiratory: clear to auscultation, normal air movement Cardiovascular: nl pulses, regular rate and rhythm Gastrointestinal: nl liver, spleen, non-tender, soft Musculoskeletal: nl extremities to inspection, nl gait and stance Extremities: normal pulses Neurological: [employer] OFFICE [employer] II-XII intact, nl mental status, nl speech, nl strength Skin: nl turgor, No rash or lesions Lymph: nl lymph nodes Results Result Diagram: 10/03/16 0540 10/02/16 0640 Results 24 hrs Laboratory Tests Test 10/02/16 13:00 10/03/16 00:25 10/03/16 05:40 Hematocrit 25.3 L 22.4 L 23.9 L Hemoglobin 8.1 L 7.3 L 7.4 L Basophils # 0.0 Basophils % 0.2 Eosinophils # 0.1 Eosinophils % 0.7 Lymphocytes # 1.1 Lymphocytes % 6.4 L Mean Corpuscular Hemoglobin 28.0 L Mean Corpuscular Hemoglobin Concent 31.0 L Mean Corpuscular Volume 90.5 Mean Platelet Volume 9.9 Monocytes # 1.5 H Monocytes % 8.4 Neutrophils # 15.0 H Neutrophils % 83.5 H Nucleated Red Blood Cells # 0.0 Nucleated Red Blood Cells % 0.0 Platelet Count 365 Red Blood Count 2.64 L Red Cell Distribution Width 15.8 H White Blood Count 18.0 H Medications Medications Current Medications Salmeterol Xinafoate/ Fluticasone (Advair 250/50 Diskus) 1 inh BID INH Last administered on 10/03/16 08:45; Admin Dose 1 INH; Start 09/20/16 at 09:00 Tiotropium [place] (Spiriva) 1 inh DAILY INH Last administered on 10/03/16 08: 44; Admin Dose 1 INH; Start 09/20/16 at 09:00 Dorzolamide/ Timolol (Cosopt) 1 drop BID LEFT EYE Last administered on 08:49; Admin Dose 1 DROP; Start 09/20/16 at 13:30 Latanoprost (Xalatan) 1 drop DAILY LEFT EYE Last administered on 10/02/16 09: 00; Admin Dose 1 DROP; Start 09/20/16 at 13:30 IV Flush (NS 10 ml) 10 ml PRN PRN IV IV PROTOCOL; Start 09/21/16 at 17:30 Acetaminophen (Tylenol Liquid) 650 mg Q6H PRN NGT PAIN AND OR ELEVATED TEMP Last administered on 10/02/16 23:17; Admin Dose 650 MG; Start 09/22/16 at 00:20 Hydralazine HCl (Apresoline) 10 mg Q6H PRN IV for sbp>160 Last administered on 09/29/16 19:30; Admin Dose 10 MG; Start 09/27/16 at 08:00 Pantoprazole (Protonix Iv) 40 mg BID@06,18 IV Last administered on 10/03/16 05 :59; Admin Dose 40 MG; Start 09/30/16 at 06:00 Morphine Sulfate (morphine) 2 mg Q2H PRN IV pain Last administered on 20:32; Admin Dose 2 MG; Start 09/29/16 at 20:30 Sertraline HCl (Zoloft) 100 mg HS PO Last administered on 10/02/16 23:17; Admin Dose 100 MG; Start 09/29/16 at 23:30 Ondansetron HCl 4 mg 4 mg Q6H PRN IV NAUSEA AND/OR VOMITING Last administered on 10/01/16 21:37; Admin Dose 4 MG; Start 09/30/16 at 04:00 Potassium Chloride/Dextrose/ Sod Cl (D5-1/2ns + KCl 20 Meq) 1,000 ml @ 75 mls/ hr [id number] IV Last administered on 10/02/16 17:02; Admin Dose 75 MLS/HR; Start 10/01/16 at 14:00 Ascorbic Acid (Vitamin C) 500 mg DAILY NGT Last administered on 10/03/16 08:50 ; Admin Dose 500 MG; Start 10/02/16 at 09:00 Ferrous Sulfate 325 mg 325 mg DAILY PO Last administered on 10/03/16 08:49; Admin Dose 325 MG; Start 10/01/16 at 17:25 Caspofungin 50 mg/ Sodium Chloride 250 ml @ 250 mls/hr Q24H IVPB Last administered on 10/03/16 01:26; Admin Dose 250 MLS/HR; Start 10/02/16 at 21:00 Ciprofloxacin/ Dextrose 200 ml @ 200 mls/hr Q12 IVPB Last administered on 10/03 08:49; Admin Dose 200 MLS/HR; Start 10/01/16 at 21:00 Metronidazole (Flagyl 500 Mg (Pmx)) 100 ml @ 100 mls/hr Q8 IVPB Last administered on 10/03/16 05:59; Admin Dose 100 MLS/HR; Start 10/01/16 at 22:00 Guaifenesin (Mucinex) 600 mg Q12 PO Last administered on 10/03/16 08:50; Admin Dose 600 MG; Start 10/01/16 at 21:30 Acetaminophen/ Hydrocodone Bitart ([place] (5/325)) 1 tab Q6H PRN PO PAIN Last administered on 10/02/16 19:39; Admin Dose 1 TAB; Start 10/02/16 at 05:30 Hydralazine HCl (Apresoline) 10 mg TID PO ; Start 10/03/16 at 13:00 MICHELE MIRELES MD Oct 03, 2016 11:27
--- NOTE | 2016-10-03 12:04 | CONS ---
Date/Time of Note Date/Time of Note DATE: 10/03/16 TIME: 12:02 Assessment/Plan Assessment/Plan Additional Assessment/Plan Small bowel obstruction with abdominal abscess status post repeat surgery Recent shock Acute blood loss anemia Diastolic congestive heart failure Acute appendicitis status post surgery Preserved ejection fraction Hypertension Acute kidney injury. -Patient with evidence of increased pleural effusions on CT scan done today. Is complaining of shortness of breath with exertion and moving. Blood pressure has been on the lower end and hemoglobin as well. We will stop hydralazine for more "blood pressure room". We will give 1 dose of p.o. Lasix now. Surgery follow-up given findings on CT abdomen pelvis. Consultation Date/Type/Reason Admit Date/Time Sep 19, 2016 at 22:10 Type of Consultation: cv Referring Provider: YAMILE LARA MD 24 HR Interval Summary Free Text/Dictation Patient complaining of shortness of breath when moving. Denies chest pain or dizziness Exam/Review of Systems Vital Signs Vitals Vital Signs Date Time Temp Pulse Resp B/P Pulse Ox O2 Delivery O2 Flow Rate FiO2 10/03/16 08:03 97.8 89 20 99/51 95 10/03/16 02:45 Nasal Cannula 2.0 Intake and Output 10/02/16 10/02/16 10/03/16 14:59 22:59 06:59 Intake Total 275 ml 775 ml Output Total 10 ml 750 ml Balance 265 ml 25 ml Exam No apparent distress Constitutional: alert, oriented Neck: supple Respiratory: other (Coarse breath sounds bilaterally, decreased at the bases) Cardiovascular: other (S1-S2 heard), regular rate and rhythm Gastrointestinal: bowel sounds, other (Discomfort with palpation, no guarding) , soft Extremities: edema (Trace), other Results Result Diagram: 10/03/16 0540 10/02/16 0640 Results 24 hrs Laboratory Tests Test 10/02/16 13:00 10/03/16 00:25 10/03/16 05:40 Hematocrit 25.3 L 22.4 L 23.9 L Hemoglobin 8.1 L 7.3 L 7.4 L Basophils # 0.0 Basophils % 0.2 Eosinophils # 0.1 Eosinophils % 0.7 Lymphocytes # 1.1 Lymphocytes % 6.4 L Mean Corpuscular Hemoglobin 28.0 L Mean Corpuscular Hemoglobin Concent 31.0 L Mean Corpuscular Volume 90.5 Mean Platelet Volume 9.9 Monocytes # 1.5 H Monocytes % 8.4 Neutrophils # 15.0 H Neutrophils % 83.5 H Nucleated Red Blood Cells # 0.0 Nucleated Red Blood Cells % 0.0 Platelet Count 365 Red Blood Count 2.64 L Red Cell Distribution Width 15.8 H White Blood Count 18.0 H Medications Medications Current Medications Salmeterol Xinafoate/ Fluticasone (Advair 250/50 Diskus) 1 inh BID INH Last administered on 10/03/16 08:45; Admin Dose 1 INH; Start 09/20/16 at 09:00 Tiotropium [place] (Spiriva) 1 inh DAILY INH Last administered on 10/03/16 08: 44; Admin Dose 1 INH; Start 09/20/16 at 09:00 Dorzolamide/ Timolol (Cosopt) 1 drop BID LEFT EYE Last administered on 08:49; Admin Dose 1 DROP; Start 09/20/16 at 13:30 Latanoprost (Xalatan) 1 drop DAILY LEFT EYE Last administered on 10/02/16 09: 00; Admin Dose 1 DROP; Start 09/20/16 at 13:30 IV Flush (NS 10 ml) 10 ml PRN PRN IV IV PROTOCOL; Start 09/21/16 at 17:30 Acetaminophen (Tylenol Liquid) 650 mg Q6H PRN NGT PAIN AND OR ELEVATED TEMP Last administered on 10/02/16 23:17; Admin Dose 650 MG; Start 09/22/16 at 00:20 Hydralazine HCl (Apresoline) 10 mg Q6H PRN IV for sbp>160 Last administered on 09/29/16 19:30; Admin Dose 10 MG; Start 09/27/16 at 08:00 Pantoprazole (Protonix Iv) 40 mg BID@06,18 IV Last administered on 10/03/16 05 :59; Admin Dose 40 MG; Start 09/30/16 at 06:00 Morphine Sulfate (morphine) 2 mg Q2H PRN IV pain Last administered on 20:32; Admin Dose 2 MG; Start 09/29/16 at 20:30 Sertraline HCl (Zoloft) 100 mg HS PO Last administered on 10/02/16 23:17; Admin Dose 100 MG; Start 09/29/16 at 23:30 Ondansetron HCl 4 mg 4 mg Q6H PRN IV NAUSEA AND/OR VOMITING Last administered on 10/01/16 21:37; Admin Dose 4 MG; Start 09/30/16 at 04:00 Potassium Chloride/Dextrose/ Sod Cl (D5-1/2ns + KCl 20 Meq) 1,000 ml @ 75 mls/ hr [id number] IV Last administered on 10/02/16 17:02; Admin Dose 75 MLS/HR; Start 10/01/16 at 14:00 Ascorbic Acid (Vitamin C) 500 mg DAILY NGT Last administered on 10/03/16 08:50 ; Admin Dose 500 MG; Start 10/02/16 at 09:00 Ferrous Sulfate 325 mg 325 mg DAILY PO Last administered on 10/03/16 08:49; Admin Dose 325 MG; Start 10/01/16 at 17:25 Caspofungin 50 mg/ Sodium Chloride 250 ml @ 250 mls/hr Q24H IVPB Last administered on 10/03/16 01:26; Admin Dose 250 MLS/HR; Start 10/02/16 at 21:00 Ciprofloxacin/ Dextrose 200 ml @ 200 mls/hr Q12 IVPB Last administered on 10/03 08:49; Admin Dose 200 MLS/HR; Start 10/01/16 at 21:00 Metronidazole (Flagyl 500 Mg (Pmx)) 100 ml @ 100 mls/hr Q8 IVPB Last administered on 10/03/16 05:59; Admin Dose 100 MLS/HR; Start 10/01/16 at 22:00 Guaifenesin (Mucinex) 600 mg Q12 PO Last administered on 10/03/16 08:50; Admin Dose 600 MG; Start 10/01/16 at 21:30 Acetaminophen/ Hydrocodone Bitart ([place] (5/325)) 1 tab Q6H PRN PO PAIN Last administered on 10/02/16 19:39; Admin Dose 1 TAB; Start 10/02/16 at 05:30 Taco Castillo DO Oct 03, 2016 12:04
--- NOTE | 2016-10-03 12:13 | PN ---
Date/Time of Note Date/Time of Note DATE: 10/03/16 TIME: 12:10 Assessment/Plan VTE Prophylaxis VTE Prophylaxis Intervention: SCD's Lines/Catheters IV Catheter Type (from Nrs): PICC Line Central line still needed: Yes Urinary Cath still in place: No Assessment/Plan Chief Complaint/Hosp Course Assessment/Plan 1. Small bowel obstruction s/p Recent Laproscopic Appendectomy Status post small bowel resection x2. Continue postsurgical care, pain management and IV antibiotics Diet as per general surgery recommendations, restart TPN secondary to low appetite if indicated by general surgery Abdominal x-ray negative for obstruction 2. Sepsis Likely secondary to intra-abdominal abscess and postoperatively infectious disease doctor has been consulted, continue Zosyn and Flagyl Follow-up blood culture, continue aggressive IV fluids 3. Hyperkalemia Resolved status post IV fluid, nephrology has been consulted, follow-up electrolytes in a.m. 4 . Abdominal abscess x3 . Status post drainage by interventional radiologist and Diagnostic laparoscopy, Exploratory laparotomy and abdominal washout. Status post CT-guided drainage by interventional radiologist 09/28/2016 , continue aggressive IV antibiotics Follow-up with general surgery recommendations 3. COPD 4. Essential hypertension, stable 5. Acute anemia, questionable GI bleed, status post transfusion of packed red blood cell, follow up hemoglobin hematocrit every 6 hours Status post colonoscopy and endoscopy Negative bleeding scan 6. concerning for possible anastomotic leak in this location at small bowel anastomosis in the periumbilical abdomen, new when compared to the prior CT, General surgery has been notified, follow the recommendations 7. Pleural effusion, start Lasix, continue IV antibiotics, pulmonology has been consulted 8. Acute renal insufficiency, likely secondary to dehydration versus anemia, follow-up renal panel in a.m. nephrology has been consulted 9. Hypothyroidism 10 . Hyperlipidemia We will continue monitor patient closely for recommendation management treatment as clinical course Problems: Subjective 24 Hr Interval Summary Free Text/Dictation Patient stated the abdominal discomfort has been improving since yesterday Minimal p.o. intake Positive loose bowel Exam/Review of Systems Vital Signs Vitals Vital Signs Date Time Temp Pulse Resp B/P Pulse Ox O2 Delivery O2 Flow Rate FiO2 10/03/16 08:03 97.8 89 20 99/51 95 10/03/16 02:45 Nasal Cannula 2.0 Intake and Output 10/02/16 10/02/16 10/03/16 15:00 23:00 07:00 Intake Total 275 ml 775 ml Output Total 10 ml 750 ml Balance 265 ml 25 ml Exam General: The patient is well-developed, Not in acute distress. HEENT: Atraumatic, normocephalic. The pupils are equal and round . Neck: Supple with full range of motion. Chest: Normal expansion of the thorax during inspiration Lungs: Clear to auscultation bilaterally Heart: Normal S1-S2, Regular rhythm and rate. Abdomen: Soft , nontender, nondistended , bowel sounds are present. Extremities: Normal to inspection, no edema no cyanosis Neurologic: Normal mental status,The patient is awake, alert and oriented . Results Result Diagram: 10/03/16 0540 10/02/16 0640 Results 24 hrs Laboratory Tests Test 10/02/16 13:00 10/03/16 00:25 10/03/16 05:40 Hematocrit 25.3 L 22.4 L 23.9 L Hemoglobin 8.1 L 7.3 L 7.4 L Basophils # 0.0 Basophils % 0.2 Eosinophils # 0.1 Eosinophils % 0.7 Lymphocytes # 1.1 Lymphocytes % 6.4 L Mean Corpuscular Hemoglobin 28.0 L Mean Corpuscular Hemoglobin Concent 31.0 L Mean Corpuscular Volume 90.5 Mean Platelet Volume 9.9 Monocytes # 1.5 H Monocytes % 8.4 Neutrophils # 15.0 H Neutrophils % 83.5 H Nucleated Red Blood Cells # 0.0 Nucleated Red Blood Cells % 0.0 Platelet Count 365 Red Blood Count 2.64 L Red Cell Distribution Width 15.8 H White Blood Count 18.0 H Medications Medications Current Medications Salmeterol Xinafoate/ Fluticasone (Advair 250/50 Diskus) 1 inh BID INH Last administered on 10/03/16 08:45; Admin Dose 1 INH; Start 09/20/16 at 09:00 Tiotropium [place] (Spiriva) 1 inh DAILY INH Last administered on 10/03/16 08: 44; Admin Dose 1 INH; Start 09/20/16 at 09:00 Dorzolamide/ Timolol (Cosopt) 1 drop BID LEFT EYE Last administered on 08:49; Admin Dose 1 DROP; Start 09/20/16 at 13:30 Latanoprost (Xalatan) 1 drop DAILY LEFT EYE Last administered on 10/02/16 09: 00; Admin Dose 1 DROP; Start 09/20/16 at 13:30 IV Flush (NS 10 ml) 10 ml PRN PRN IV IV PROTOCOL; Start 09/21/16 at 17:30 Acetaminophen (Tylenol Liquid) 650 mg Q6H PRN NGT PAIN AND OR ELEVATED TEMP Last administered on 10/02/16 23:17; Admin Dose 650 MG; Start 09/22/16 at 00:20 Hydralazine HCl (Apresoline) 10 mg Q6H PRN IV for sbp>160 Last administered on 09/29/16 19:30; Admin Dose 10 MG; Start 09/27/16 at 08:00 Pantoprazole (Protonix Iv) 40 mg BID@06,18 IV Last administered on 10/03/16 05 :59; Admin Dose 40 MG; Start 09/30/16 at 06:00 Morphine Sulfate (morphine) 2 mg Q2H PRN IV pain Last administered on 20:32; Admin Dose 2 MG; Start 09/29/16 at 20:30 Sertraline HCl (Zoloft) 100 mg HS PO Last administered on 10/02/16 23:17; Admin Dose 100 MG; Start 09/29/16 at 23:30 Ondansetron HCl 4 mg 4 mg Q6H PRN IV NAUSEA AND/OR VOMITING Last administered on 10/01/16 21:37; Admin Dose 4 MG; Start 09/30/16 at 04:00 Potassium Chloride/Dextrose/ Sod Cl (D5-1/2ns + KCl 20 Meq) 1,000 ml @ 75 mls/ hr [id number] IV Last administered on 10/02/16 17:02; Admin Dose 75 MLS/HR; Start 10/01/16 at 14:00 Ascorbic Acid (Vitamin C) 500 mg DAILY NGT Last administered on 10/03/16 08:50 ; Admin Dose 500 MG; Start 10/02/16 at 09:00 Ferrous Sulfate 325 mg 325 mg DAILY PO Last administered on 10/03/16 08:49; Admin Dose 325 MG; Start 10/01/16 at 17:25 Caspofungin 50 mg/ Sodium Chloride 250 ml @ 250 mls/hr Q24H IVPB Last administered on 10/03/16 01:26; Admin Dose 250 MLS/HR; Start 10/02/16 at 21:00 Ciprofloxacin/ Dextrose 200 ml @ 200 mls/hr Q12 IVPB Last administered on 10/03 08:49; Admin Dose 200 MLS/HR; Start 10/01/16 at 21:00 Metronidazole (Flagyl 500 Mg (Pmx)) 100 ml @ 100 mls/hr Q8 IVPB Last administered on 10/03/16 05:59; Admin Dose 100 MLS/HR; Start 10/01/16 at 22:00 Guaifenesin (Mucinex) 600 mg Q12 PO Last administered on 10/03/16 08:50; Admin Dose 600 MG; Start 10/01/16 at 21:30 Acetaminophen/ Hydrocodone Bitart ([place] (5/325)) 1 tab Q6H PRN PO PAIN Last administered on 10/02/16 19:39; Admin Dose 1 TAB; Start 10/02/16 at 05:30 Furosemide (Lasix) 20 mg ONCE ONCE PO ; Start 10/03/16 at 12:30; Stop 10/03/16 at 12:31 YAMILE LARA MD Oct 03, 2016 12:13
[2016-10-03] MEDS ORDERED: FUROSEMIDE 20 MG TAB PO ONE (12:30)
--- NOTE | 2016-10-03 12:43 | PN ---
DATE: 10/03/2016 SUBJECTIVE: The patient remains unchanged. No fevers. She is lying comfortably in bed, still with abdominal discomfort. WBC remains elevated at 18 with platelets 365, neutrophils 83.5, BUN 16, cre atinine 1.07. DIAGNOSTICS: CT of the abdomen and pelvis repeated today revealed small extraluminal gas bubbles ad jacent to a small bowel anastomosis, new compared to prior CT concerning for possible anastomotic le ak, near complete resolution of abscess in the right lower quadrant. Abdominal abscess collection i n the central mesenteric fat and central left pelvis might be decreased in size, no bowel obstructio n, moderate to large bilateral pleural effusions. ANTIMICROBIALS: The patient is on: 1. Cancidas. 2. Flagyl. 3. Ciprofloxacin. PHYSICAL EXAMINATION: GENERAL: This is a fragile, elderly woman who is lying comfortably in bed. HEENT: Head atraumatic, normocephalic. Sclerae anicteric. Buccal mucosa dry. NECK: Supple, trachea midline. CHEST: Rise symmetrical. Breath sounds diminished to bases. HEART: S1, S2. ABDOMEN: Slightly distended with guarding on palpation. EXTREMITIES: Without cyanosis. ASSESSMENT: 1. Systemic inflammatory response syndrome with persistent leukocytosis secondary to multiple intra abdominal abscesses and now possible anastomotic leak status post CT-guided drainage catheter placem ent on 09/28/2016. 2. Acute anemia, gastroenterology on case. Bleeding scan had been negative and EGD negative. 3. Status post small bowel resection, abscess drainage with exploratory laparotomy on 09/20/2016. 4. Acute on chronic kidney disease. PLAN: The patient remains clinically stable. She is being followed by multiple consultants. We wi ll continue her on current antimicrobials, await for surgical recommendations. Dictated By: YASMANY BECERRA POOLROOM TABLE ATTENDANT for THOMAS CALIXTO MD NI/NTS Conf#: [id number] DID#: [id number]
[2016-10-03] MEDS: HYDROCODONE/APAP (5/325) TAB PO PRN ×2 (13:58→14:58)
--- NOTE | 2016-10-03 15:04 | CONS ---
Date/Time of Note Date/Time of Note DATE: 10/03/16 TIME: 15:00 Assessment/Plan Assessment/Plan Additional Assessment/Plan Assessment and recommendations; 1. Patient admitted with abdominal pain underwent laparotomy and has had a long hospital stay due to element of pelvic abscesses. Status post STEPHANIE drain placement with marked overall clinical and radiological improvement. 2. Element of moderate to large bilateral pleural effusions. Causing patient to have shortness of breath upon exertion. Continue current treatment. Obtain ultrasound-guided thoracentesis on the right or left-sided. Continue current supportive care. There is significant urinary bladder distention seen on CT imaging of the abdomen and a Santos catheter or straight catheterization at least 1 is recommended. Consultation Date/Type/Reason Admit Date/Time Sep 19, 2016 at 22:10 Type of Consultation: Pulmonary Referring Provider: YAMILE LARA MD 24 HR Interval Summary Free Text/Dictation Patient condition is markedly improved over the last 2 days. Patient is completely awake alert denies any shortness of breath at rest but does complain of shortness of breath on minimal exertion. Denies any chest pain, fever, coughing or sputum production. Abdominal pain also is markedly improved. Patient denies any nausea vomiting. Is able to eat. General examination; elderly lady, currently in no distress awake and alert. Exam/Review of Systems Vital Signs Vitals Vital Signs Date Time Temp Pulse Resp B/P Pulse Ox O2 Delivery O2 Flow Rate FiO2 10/03/16 12:15 97.6 89 20 106/54 95 10/03/16 02:45 Nasal Cannula 2.0 Intake and Output 10/02/16 10/02/16 10/03/16 15:00 23:00 07:00 Intake Total 275 ml 775 ml Output Total 10 ml 750 ml Balance 265 ml 25 ml Exam HEENT examination; supple neck, no JVD. No lymphadenopathy. Midline trachea. No thyromegaly. Pharynx is clear. Patient does not multiple carious teeth. Pupils are small bilaterally. Next Chest examination; diminished breath on lung bases bilaterally. Upper lobes are clear. S1-S2 audible, no murmurs. Regular rhythm. Abdomen examination; is softer, bowel sounds audible. There is a well-healed laparotomy scar present. There is a STEPHANIE drain in the right lower quadrant. Abdomen is minimally tender. Extremity examination; no peripheral edema. ENVIRONMENTAL HEALTH OFFICER examination; no focal deficit. Results Result Diagram: 10/03/16 0540 10/02/16 0640 Results 24 hrs Laboratory Tests Test 10/03/16 00:25 10/03/16 05:40 Hematocrit 22.4 L 23.9 L Hemoglobin 7.3 L 7.4 L Basophils # 0.0 Basophils % 0.2 Eosinophils # 0.1 Eosinophils % 0.7 Lymphocytes # 1.1 Lymphocytes % 6.4 L Mean Corpuscular Hemoglobin 28.0 L Mean Corpuscular Hemoglobin Concent 31.0 L Mean Corpuscular Volume 90.5 Mean Platelet Volume 9.9 Monocytes # 1.5 H Monocytes % 8.4 Neutrophils # 15.0 H Neutrophils % 83.5 H Nucleated Red Blood Cells # 0.0 Nucleated Red Blood Cells % 0.0 Platelet Count 365 Red Blood Count 2.64 L Red Cell Distribution Width 15.8 H White Blood Count 18.0 H Medications Medications Current Medications Salmeterol Xinafoate/ Fluticasone (Advair 250/50 Diskus) 1 inh BID INH Last administered on 10/03/16 08:45; Admin Dose 1 INH; Start 09/20/16 at 09:00 Tiotropium [place] (Spiriva) 1 inh DAILY INH Last administered on 10/03/16 08: 44; Admin Dose 1 INH; Start 09/20/16 at 09:00 Dorzolamide/ Timolol (Cosopt) 1 drop BID LEFT EYE Last administered on 08:49; Admin Dose 1 DROP; Start 09/20/16 at 13:30 Latanoprost (Xalatan) 1 drop DAILY LEFT EYE Last administered on 10/03/16 09: 00; Admin Dose 1 DROP; Start 09/20/16 at 13:30 IV Flush (NS 10 ml) 10 ml PRN PRN IV IV PROTOCOL; Start 09/21/16 at 17:30 Acetaminophen (Tylenol Liquid) 650 mg Q6H PRN NGT PAIN AND OR ELEVATED TEMP Last administered on 10/02/16 23:17; Admin Dose 650 MG; Start 09/22/16 at 00:20 Hydralazine HCl (Apresoline) 10 mg Q6H PRN IV for sbp>160 Last administered on 09/29/16 19:30; Admin Dose 10 MG; Start 09/27/16 at 08:00 Pantoprazole (Protonix Iv) 40 mg BID@06,18 IV Last administered on 10/03/16 05 :59; Admin Dose 40 MG; Start 09/30/16 at 06:00 Morphine Sulfate (morphine) 2 mg Q2H PRN IV pain Last administered on 20:32; Admin Dose 2 MG; Start 09/29/16 at 20:30 Sertraline HCl (Zoloft) 100 mg HS PO Last administered on 10/02/16 23:17; Admin Dose 100 MG; Start 09/29/16 at 23:30 Ondansetron HCl 4 mg 4 mg Q6H PRN IV NAUSEA AND/OR VOMITING Last administered on 10/01/16 21:37; Admin Dose 4 MG; Start 09/30/16 at 04:00 Potassium Chloride/Dextrose/ Sod Cl (D5-1/2ns + KCl 20 Meq) 1,000 ml @ 75 mls/ hr [id number] IV Last administered on 10/02/16 17:02; Admin Dose 75 MLS/HR; Start 10/01/16 at 14:00 Ascorbic Acid (Vitamin C) 500 mg DAILY NGT Last administered on 10/03/16 08:50 ; Admin Dose 500 MG; Start 10/02/16 at 09:00 Ferrous Sulfate 325 mg 325 mg DAILY PO Last administered on 10/03/16 08:49; Admin Dose 325 MG; Start 10/01/16 at 17:25 Caspofungin 50 mg/ Sodium Chloride 250 ml @ 250 mls/hr Q24H IVPB Last administered on 10/03/16 01:26; Admin Dose 250 MLS/HR; Start 10/02/16 at 21:00 Ciprofloxacin/ Dextrose 200 ml @ 200 mls/hr Q12 IVPB Last administered on 10/03 08:49; Admin Dose 200 MLS/HR; Start 10/01/16 at 21:00 Metronidazole (Flagyl 500 Mg (Pmx)) 100 ml @ 100 mls/hr Q8 IVPB Last administered on 10/03/16 13:59; Admin Dose 100 MLS/HR; Start 10/01/16 at 22:00 Guaifenesin (Mucinex) 600 mg Q12 PO Last administered on 10/03/16 08:50; Admin Dose 600 MG; Start 10/01/16 at 21:30 Acetaminophen/ Hydrocodone Bitart ([place] (5/325)) 1 tab Q6H PRN PO PAIN Last administered on 10/03/16t 13:58; Admin Dose 1 TAB; Start 10/02/16 at 05:30 NATALY PAGE Oct 03, 2016 15:04
[2016-10-03] MEDS: SERTRALINE 100 MG TAB PO SCH (21:58)
[2016-10-03] MEDS: ZOLPIDEM 5 MG TAB PO PRN (22:58)
[2016-10-04] VITALS (12 sets, daily range): BP systolic 116–161; BP diastolic 57–67; PULSE 83–100; RESP 18–20
[2016-10-04] MEDS: metroNIDAZOLE 500 MG/NS (PMX) 100 ML IVPB SCH ×3 (06:16→22:08)
[2016-10-04] MEDS: PANTOPRAZOLE 40 MG INJ IV SCH ×2 (06:16→17:46)
--- NOTE | 2016-10-04 08:39 | CONS ---
Date/Time of Note Date/Time of Note DATE: 10/04/16 TIME: 08:37 Assessment/Plan Assessment/Plan Additional Assessment/Plan 1. Sepsis 2/2 to # 2 2. Multiple intra-abdominal abscesses, status post CT-guided aspiration with catheter placement on 09/28/2016.Status post small bowel resection and abscess drainage with exploratory laparotomy on 09/20/2016. 2. Acute kidney injury secondary to acute tubular necrosis from sepsis 3. Acute hyperkalemia with metabolic acidosis likely secondary to acute kidney injury.- now resolved 4. Small bowel obstructions status post exploratory laparotomy and abdominal washout- on TPN currently 5. History of recent laparoscopic appendectomy. 6. History of hypertension 7. History of chronic obstructive pulmonary disease. 8. History of hypothyroidism. PLAN: pt need thoracentesis, awaiting consent from daughter NO labs today yet to review - will follow up on labs today cr slightly improved- no labs today yet to review continue current IVF with KCL making good urine will follow up Consultation Date/Type/Reason Admit Date/Time Sep 19, 2016 at 22:10 Initial Consult Date Sep Type of Consultation: NEPHROLOGY Reason for Consultation acute kidney injury,Hyperkalemia, Electrolyte imbalance Referring Provider: YAMILE LARA MD 24 HR Interval Summary Free Text/Dictation Pt needs thoracentesis ,awaiting consent from daughter, no labs today yet to review Exam/Review of Systems Vital Signs Vitals Vital Signs Date Time Temp Pulse Resp B/P Pulse Ox O2 Delivery O2 Flow Rate FiO2 10/04/16 08:15 87 10/04/16 07:03 98.2 18 116/57 94 10/04/16 03:29 2.0 10/03/16 20:00 Nasal Cannula Intake and Output 10/03/16 10/03/16 10/04/16 15:00 23:00 07:00 Intake Total 200 ml 200 ml Output Total 750 ml 1000 ml Balance -550 ml -800 ml Exam HEENT: Head atraumatic, normocephalic. Sclerae anicteric. Buccal mucosa pink. NECK: Supple. Trachea midline. CHEST: Rise symmetrical. Breath sounds clear. HEART: S1, S2. ABDOMEN: Soft . Guarded on palpation. Bowel tones present. EXTREMITIES: No cyanosis. Results Result Diagram: 10/03/16 0540 10/02/16 0640 Medications Medications Current Medications Salmeterol Xinafoate/ Fluticasone (Advair 250/50 Diskus) 1 inh BID INH Last administered on 10/03/16 21:57; Admin Dose 1 INH; Start 09/20/16 at 09:00 Tiotropium [place] (Spiriva) 1 inh DAILY INH Last administered on 10/03/16 08: 44; Admin Dose 1 INH; Start 09/20/16 at 09:00 Dorzolamide/ Timolol (Cosopt) 1 drop BID LEFT EYE Last administered on 22:02; Admin Dose 1 DROP; Start 09/20/16 at 13:30 Latanoprost (Xalatan) 1 drop DAILY LEFT EYE Last administered on 10/03/16 09: 00; Admin Dose 1 DROP; Start 09/20/16 at 13:30 IV Flush (NS 10 ml) 10 ml PRN PRN IV IV PROTOCOL; Start 09/21/16 at 17:30 Acetaminophen (Tylenol Liquid) 650 mg Q6H PRN NGT PAIN AND OR ELEVATED TEMP Last administered on 10/02/16 23:17; Admin Dose 650 MG; Start 09/22/16 at 00:20 Hydralazine HCl (Apresoline) 10 mg Q6H PRN IV for sbp>160 Last administered on 09/29/16 19:30; Admin Dose 10 MG; Start 09/27/16 at 08:00 Pantoprazole (Protonix Iv) 40 mg BID@06,18 IV Last administered on 10/04/16 06: 16; Admin Dose 40 MG; Start 09/30/16 at 06:00 Morphine Sulfate (morphine) 2 mg Q2H PRN IV pain Last administered on 20:32; Admin Dose 2 MG; Start 09/29/16 at 20:30 Sertraline HCl (Zoloft) 100 mg HS PO Last administered on 10/03/16 21:58; Admin Dose 100 MG; Start 09/29/16 at 23:30 Ondansetron HCl 4 mg 4 mg Q6H PRN IV NAUSEA AND/OR VOMITING Last administered on 10/01/16 21:37; Admin Dose 4 MG; Start 09/30/16 at 04:00 Potassium Chloride/Dextrose/ Sod Cl (D5-1/2ns + KCl 20 Meq) 1,000 ml @ 75 mls/ hr [id number] IV Last administered on 10/03/16 22:14; Admin Dose 75 MLS/HR; Start 10/01/16 at 14:00 Ascorbic Acid (Vitamin C) 500 mg DAILY NGT Last administered on 10/03/16 08:50 ; Admin Dose 500 MG; Start 10/02/16 at 09:00 Ferrous Sulfate 325 mg 325 mg DAILY PO Last administered on 10/03/16 08:49; Admin Dose 325 MG; Start 10/01/16 at 17:25 Caspofungin 50 mg/ Sodium Chloride 250 ml @ 250 mls/hr Q24H IVPB Last administered on 10/03/16 21:00; Admin Dose 250 MLS/HR; Start 10/02/16 at 21:00 Ciprofloxacin/ Dextrose 200 ml @ 200 mls/hr Q12 IVPB Last administered on 10/03 21:00; Admin Dose 200 MLS/HR; Start 10/01/16 at 21:00 Metronidazole (Flagyl 500 Mg (Pmx)) 100 ml @ 100 mls/hr Q8 IVPB Last administered on 10/04/16 06:16; Admin Dose 100 MLS/HR; Start 10/01/16 at 22:00 Guaifenesin (Mucinex) 600 mg Q12 PO Last administered on 10/03/16 21:58; Admin Dose 600 MG; Start 10/01/16 at 21:30 Acetaminophen/ Hydrocodone Bitart ([place] (5/325)) 1 tab Q6H PRN PO PAIN Last administered on 10/03/16 13:58; Admin Dose 1 TAB; Start 10/02/16 at 05:30 MADISYN MANUEL MD Oct 04, 2016 08:39
[2016-10-04] MEDS: LATANOPROST 0.005% 2.5 ML OPH LEFT EYE SCH (09:00)
[2016-10-04] MEDS: CIPROFLOXACIN 400MG/D5W 200 ML IVPB SCH ×2 (09:16→22:06)
[2016-10-04] MEDS: GUAIFENESIN LA 600 MG TABSR PO SCH ×2 (09:17→22:07)
[2016-10-04] MEDS: FERROUS SULFATE (EC) 325 MG TAB PO SCH (09:17)
[2016-10-04] MEDS: ASCORBIC ACID 500 MG TAB NGT SCH (09:17)
[2016-10-04] MEDS: DORZOLAMIDE/TIMOLOL 10 ML OPH LEFT EYE SCH ×2 (09:17→22:07)
[2016-10-04] MEDS: TIOTROPIUM 18 MCG CAPSULE INHA DEV INH SCH (09:18)
[2016-10-04] MEDS: SALMETEROL/FLUTICASONE 250/50 INHA INH SCH ×2 (09:19→22:06)
[2016-10-04] MEDS: HYDROCODONE/APAP (5/325) TAB PO PRN ×2 (09:23→19:21)
[2016-10-04 09:28] LABS: ADD SCAN DIFF NO
[2016-10-04 09:38] LABS: ABNORMAL IP MESSAGE 1; BASOPHILS % 0.2 % (0.0-2.0); EOSINOPHILS # 0.3 10^3/ul (0.0-0.5); EOSINOPHILS % 1.5 % (0.0-7.0); LYMPHOCYTES # 1.1 10^3/ul (0.8-2.9); MEAN CORPUSCULAR HEMOGLOBIN 28.2 pg (29.0-33.0); MEAN CORPUSCULAR HGB CONC 31.4 g/dl (32.0-37.0); MEAN CORPUSCULAR VOLUME 89.8 fl (82.0-101.0); MEAN PLATELET VOLUME 9.5 fl (7.4-10.4); MONOCYTE # 1.2 10^3/ul (0.3-0.9); MONOCYTES % 7.5 % (0.0-11.0); NEUTROPHIL # 13.4 10^3/ul (1.6-7.5); NEUTROPHILS % 82.9 % (39.0-77.0); PLATELET COUNT 376 10^3/UL (140-415); RED BLOOD COUNT 2.45 10^6/ul (4.20-5.40); RED CELL DISTRIBUTION WIDTH 15.9 % (11.5-14.5); WHITE BLOOD COUNT 16.2 10^3/ul (4.8-10.8)
[2016-10-04 09:42] LABS: POTASSIUM 3.3 mmol/L (3.5-5.1)
[2016-10-04 09:43] LABS: INR 1.25; PARTIAL THROMBOPLASTIN TIME 31.1 Sec (25.0-35.0); PROTIME 15.8 Sec (12.2-14.2); PT RATIO 1.2
[2016-10-04 09:45] LABS: ALBUMIN/GLOBULIN RATIO 0.57; CALCIUM 7.3 mg/dl (8.4-10.2); TOTAL PROTEIN 5.5 g/dl (6.1-8.1)
[2016-10-04 09:46] LABS: HEMOGLOBIN 6.9 g/dl (12.0-16.0)
--- NOTE | 2016-10-04 12:09 | CONS ---
Date/Time of Note Date/Time of Note DATE: 10/04/16 TIME: 12:05 Assessment/Plan Assessment/Plan Additional Assessment/Plan Assessment and recommendations; 1. Patient admitted with abdominal pain underwent laparotomy and has had a long hospital stay due to complications from multiple abdominal abscesses requiring percutaneous drainage. 2. Anemia, patient currently getting blood transfusion. 3. Bilateral moderate pleural effusions. Causing shortness of breath. Patient is scheduled for ultrasound-guided thoracentesis today . Patient's condition is markedly improved considering how sick she was a few days ago. I did have a very detailed discussion with the patient's daughter at bedside and answered all her questions. Consultation Date/Type/Reason Admit Date/Time Sep 19, 2016 at 22:10 Type of Consultation: Pulmonary Referring Provider: YAMILE LARA MD 24 HR Interval Summary Free Text/Dictation Patient condition is stable. Still complains of shortness of breath upon minimal exertion. Complains of mild abdominal pain without nausea vomiting. Denies any fever or chills. Any cough wheezing or sputum production. General examination; elderly lady, currently in no distress awake and alert. Exam/Review of Systems Vital Signs Vitals Vital Signs Date Time Temp Pulse Resp B/P Pulse Ox O2 Delivery O2 Flow Rate FiO2 10/04/16 11:26 98.0 83 18 148/67 95 10/04/16 03:29 2.0 10/03/16 20:00 Nasal Cannula Intake and Output 10/03/16 10/03/16 10/04/16 15:00 23:00 07:00 Intake Total 200 ml 200 ml Output Total 750 ml 1000 ml Balance -550 ml -800 ml Exam H EENT examination; supple neck, no JVD. No lymphadenopathy. Midline trachea. No neck masses. Pupils are small bilaterally. Chest examination; diminished breath on lung bases. Upper lobes are clear bilaterally. S1-S2 audible, no murmurs. Regular rhythm. Abdomen examination; mildly protuberant. Midline dressing in place. STEPHANIE drain in the right lower quadrant. Abdomen is mildly tender diffusely. Bowel sounds audible. Next Extremity examination; no peripheral edema. CLINICAL RESEARCH DIRECTOR examination; no focal deficit. Results Result Diagram: 10/04/16 0915 10/04/16 0915 Results 24 hrs Laboratory Tests Test 10/04/16 09:15 Activated Partial Thromboplast Time 31.1 Alanine Aminotransferase (ALT/SGPT) 31 Albumin 2.0 L Albumin/Globulin Ratio 0.57 Alkaline Phosphatase 52 Anion Gap 12 Aspartate Amino Transf (AST/SGOT) 16 Basophils # 0.0 Basophils % 0.2 Blood Urea Nitrogen 10 Calcium Level 7.3 L Carbon Dioxide Level 23 Chloride Level 105 Creatinine 1.00 Direct Bilirubin 0.00 Eosinophils # 0.3 Eosinophils % 1.5 Globulin 3.50 H Glucose Level 101 Hematocrit 22.0 L Hemoglobin 6.9 *L INR International Normalized Ratio 1.25 Indirect Bilirubin 0.0 Lymphocytes # 1.1 Lymphocytes % 7.0 L Mean Corpuscular Hemoglobin 28.2 L Mean Corpuscular Hemoglobin Concent 31.4 L Mean Corpuscular Volume 89.8 Mean Platelet Volume 9.5 Monocytes # 1.2 H Monocytes % 7.5 Neutrophils # 13.4 H Neutrophils % 82.9 H Nucleated Red Blood Cells # 0.0 Nucleated Red Blood Cells % 0.0 Platelet Count 376 Potassium Level 3.3 L Prothrombin Time 15.8 H Prothrombin Time Ratio 1.2 Red Blood Count 2.45 L Red Cell Distribution Width 15.9 H Sodium Level 137 Total Bilirubin 0.0 L Total Protein 5.5 L White Blood Count 16.2 H Medications Medications Current Medications Salmeterol Xinafoate/ Fluticasone (Advair 250/50 Diskus) 1 inh BID INH Last administered on 10/04/16 09:19; Admin Dose 1 INH; Start 09/20/16 at 09:00 Tiotropium [place] (Spiriva) 1 inh DAILY INH Last administered on 10/04/16 09: 18; Admin Dose 1 INH; Start 09/20/16 at 09:00 Dorzolamide/ Timolol (Cosopt) 1 drop BID LEFT EYE Last administered on 09:17; Admin Dose 1 DROP; Start 09/20/16 at 13:30 Latanoprost (Xalatan) 1 drop DAILY LEFT EYE Last administered on 10/03/16 09: 00; Admin Dose 1 DROP; Start 09/20/16 at 13:30 IV Flush (NS 10 ml) 10 ml PRN PRN IV IV PROTOCOL; Start 09/21/16 at 17:30 Acetaminophen (Tylenol Liquid) 650 mg Q6H PRN NGT PAIN AND OR ELEVATED TEMP Last administered on 10/02/16 23:17; Admin Dose 650 MG; Start 09/22/16 at 00:20 Hydralazine HCl (Apresoline) 10 mg Q6H PRN IV for sbp>160 Last administered on 09/29/16 19:30; Admin Dose 10 MG; Start 09/27/16 at 08:00 Pantoprazole (Protonix Iv) 40 mg BID@06,18 IV Last administered on 10/04/16 06: 16; Admin Dose 40 MG; Start 09/30/16 at 06:00 Morphine Sulfate (morphine) 2 mg Q2H PRN IV pain Last administered on 20:32; Admin Dose 2 MG; Start 09/29/16 at 20:30 Sertraline HCl (Zoloft) 100 mg HS PO Last administered on 10/03/16 21:58; Admin Dose 100 MG; Start 09/29/16 at 23:30 Ondansetron HCl 4 mg 4 mg Q6H PRN IV NAUSEA AND/OR VOMITING Last administered on 10/01/16 21:37; Admin Dose 4 MG; Start 09/30/16 at 04:00 Potassium Chloride/Dextrose/ Sod Cl (D5-1/2ns + KCl 20 Meq) 1,000 ml @ 75 mls/ hr [id number] IV Last administered on 10/03/16 22:14; Admin Dose 75 MLS/HR; Start 10/01/16 at 14:00 Ascorbic Acid (Vitamin C) 500 mg DAILY NGT Last administered on 10/04/16 09:17 ; Admin Dose 500 MG; Start 10/02/16 at 09:00 Ferrous Sulfate 325 mg 325 mg DAILY PO Last administered on 10/04/16 09:17; Admin Dose 325 MG; Start 10/01/16 at 17:25 Caspofungin 50 mg/ Sodium Chloride 250 ml @ 250 mls/hr Q24H IVPB Last administered on 10/03/16 21:00; Admin Dose 250 MLS/HR; Start 10/02/16 at 21:00 Ciprofloxacin/ Dextrose 200 ml @ 200 mls/hr Q12 IVPB Last administered on 09:16; Admin Dose 200 MLS/HR; Start 10/01/16 at 21:00 Metronidazole (Flagyl 500 Mg (Pmx)) 100 ml @ 100 mls/hr Q8 IVPB Last administered on 10/04/16 06:16; Admin Dose 100 MLS/HR; Start 10/01/16 at 22:00 Guaifenesin (Mucinex) 600 mg Q12 PO Last administered on 10/04/16 09:17; Admin Dose 600 MG; Start 10/01/16 at 21:30 Acetaminophen/ Hydrocodone Bitart ([place] (5/325)) 1 tab Q6H PRN PO PAIN Last administered on 10/04/16 09:23; Admin Dose 1 TAB; Start 10/02/16 at 05:30 NATALY PAGE Oct 04, 2016 12:09
[2016-10-04] MEDS ORDERED: FUROSEMIDE 20 MG INJ IV ONE (13:30)
[2016-10-04] MEDS ORDERED: POTASSIUM CHLORIDE 20 MEQ in SOD CHLORIDE 0.9% 100 ML IVPB SCH (14:00)
--- NOTE | 2016-10-04 14:09 | CONS ---
Date/Time of Note Date/Time of Note DATE: 10/04/16 TIME: 14:06 Assessment/Plan Assessment/Plan Additional Assessment/Plan Small bowel obstruction with abdominal abscess status post repeat surgery Recent shock Acute blood loss anemia Diastolic congestive heart failure Acute appendicitis status post surgery Preserved ejection fraction Hypertension Acute kidney injury. -Patient planned for thoracentesis today. Would give dose of diuretics in between blood transfusions. Patient on as needed hydralazine for hypertension. If blood pressure and renal function remains stable, will increase diuretic regimen. Maintain potassium above 4.0 and magnesium above 2.0. Consultation Date/Type/Reason Admit Date/Time Sep 19, 2016 at 22:10 Type of Consultation: cv Referring Provider: YAMILE LARA MD 24 HR Interval Summary Free Text/Dictation Shortness of breath slightly better. Denies chest pain or palpitations Exam/Review of Systems Vital Signs Vitals Vital Signs Date Time Temp Pulse Resp B/P Pulse Ox O2 Delivery O2 Flow Rate FiO2 10/04/16 12:18 83 10/04/16 11:26 98.0 18 148/67 95 10/04/16 03:29 2.0 10/03/16 20:00 Nasal Cannula Intake and Output 10/03/16 10/03/16 10/04/16 15:00 23:00 07:00 Intake Total 200 ml 200 ml Output Total 750 ml 1000 ml Balance -550 ml -800 ml Exam Constitutional: alert, oriented Head: normocephalic Neck: supple Respiratory: other (Coarse breath sounds bilaterally, decreased at the bases) Cardiovascular: other (S1-S2 heard), regular rate and rhythm Gastrointestinal: bowel sounds, non-tender, soft Extremities: edema (Trace) Results Result Diagram: 10/04/1615 10/04/16 0915 Results 24 hrs Laboratory Tests Test 10/04/16 09:15 Activated Partial Thromboplast Time 31.1 Alanine Aminotransferase (ALT/SGPT) 31 Albumin 2.0 L Albumin/Globulin Ratio 0.57 Alkaline Phosphatase 52 Anion Gap 12 Aspartate Amino Transf (AST/SGOT) 16 Basophils # 0.0 Basophils % 0.2 Blood Urea Nitrogen 10 Calcium Level 7.3 L Carbon Dioxide Level 23 Chloride Level 105 Creatinine 1.00 Direct Bilirubin 0.00 Eosinophils # 0.3 Eosinophils % 1.5 Globulin 3.50 H Glucose Level 101 Hematocrit 22.0 L Hemoglobin 6.9 *L INR International Normalized Ratio 1.25 Indirect Bilirubin 0.0 Lymphocytes # 1.1 Lymphocytes % 7.0 L Mean Corpuscular Hemoglobin 28.2 L Mean Corpuscular Hemoglobin Concent 31.4 L Mean Corpuscular Volume 89.8 Mean Platelet Volume 9.5 Monocytes # 1.2 H Monocytes % 7.5 Neutrophils # 13.4 H Neutrophils % 82.9 H Nucleated Red Blood Cells # 0.0 Nucleated Red Blood Cells % 0.0 Platelet Count 376 Potassium Level 3.3 L Prothrombin Time 15.8 H Prothrombin Time Ratio 1.2 Red Blood Count 2.45 L Red Cell Distribution Width 15.9 H Sodium Level 137 Total Bilirubin 0.0 L Total Protein 5.5 L White Blood Count 16.2 H Medications Medications Current Medications Salmeterol Xinafoate/ Fluticasone (Advair 250/50 Diskus) 1 inh BID INH Last administered on 10/04/16 09:19; Admin Dose 1 INH; Start 09/20/16 at 09:00 Tiotropium [place] (Spiriva) 1 inh DAILY INH Last administered on 10/04/16 09: 18; Admin Dose 1 INH; Start 09/20/16 at 09:00 Dorzolamide/ Timolol (Cosopt) 1 drop BID LEFT EYE Last administered on 09:17; Admin Dose 1 DROP; Start 09/20/16 at 13:30 Latanoprost (Xalatan) 1 drop DAILY LEFT EYE Last administered on 10/03/16 09: 00; Admin Dose 1 DROP; Start 09/20/16 at 13:30 IV Flush (NS 10 ml) 10 ml PRN PRN IV IV PROTOCOL; Start 09/21/16 at 17:30 Acetaminophen (Tylenol Liquid) 650 mg Q6H PRN NGT PAIN AND OR ELEVATED TEMP Last administered on 10/02/16 23:17; Admin Dose 650 MG; Start 09/22/16 at 00:20 Hydralazine HCl (Apresoline) 10 mg Q6H PRN IV for sbp>160 Last administered on 09/29/16 19:30; Admin Dose 10 MG; Start 09/27/16 at 08:00 Pantoprazole (Protonix Iv) 40 mg BID@,18 IV Last administered on 10/04/16 06: 16; Admin Dose 40 MG; Start 09/30/16 at 06:00 Morphine Sulfate (morphine) 2 mg Q2H PRN IV pain Last administered on 20:32; Admin Dose 2 MG; Start 09/29/16 at 20:30 Sertraline HCl (Zoloft) 100 mg HS PO Last administered on 10/03/16 21:58; Admin Dose 100 MG; Start 09/29/16 at 23:30 Ondansetron HCl 4 mg 4 mg Q6H PRN IV NAUSEA AND/OR VOMITING Last administered on 10/01/16 21:37; Admin Dose 4 MG; Start 09/30/16 at 04:00 Potassium Chloride/Dextrose/ Sod Cl (D5-1/2ns + KCl 20 Meq) 1,000 ml @ 75 mls/ hr [id number] IV Last administered on 10/03/16 22:14; Admin Dose 75 MLS/HR; Start 10/01/16 at 14:00 Ascorbic Acid (Vitamin C) 500 mg DAILY NGT Last administered on 10/04/16 09:17 ; Admin Dose 500 MG; Start 10/02/16 at 09:00 Ferrous Sulfate 325 mg 325 mg DAILY PO Last administered on 10/04/16 09:17; Admin Dose 325 MG; Start 10/01/16 at 17:25 Caspofungin 50 mg/ Sodium Chloride 250 ml @ 250 mls/hr Q24H IVPB Last administered on 10/03/16 21:00; Admin Dose 250 MLS/HR; Start 10/02/16 at 21:00 Ciprofloxacin/ Dextrose 200 ml @ 200 mls/hr Q12 IVPB Last administered on 09:16; Admin Dose 200 MLS/HR; Start 10/01/16 at 21:00 Metronidazole (Flagyl 500 Mg (Pmx)) 100 ml @ 100 mls/hr Q8 IVPB Last administered on 10/04/16 13:55; Admin Dose 100 MLS/HR; Start 10/01/16 at 22:00 Guaifenesin (Mucinex) 600 mg Q12 PO Last administered on 10/04/16 09:17; Admin Dose 600 MG; Start 10/01/16 at 21:30 Acetaminophen/ Hydrocodone Bitart 1 tab 1 tab Q6H PRN PO PAIN Last administered on 10/04/16 09:23; Admin Dose 1 TAB; Start 10/02/16 at 05:30 Total Parenteral Nutrition 1,000 ml @ 40 mls/hr Q24H IV ; Start 10/04/16 at 16: 00 Potassium Chloride/Sodium Chloride (KCl/NS) 110 ml @ 55 mls/hr ONCE IVPB Last administered on 10/04/16 13:56; Admin Dose 55 MLS/HR; Start 10/04/16 at 14:00; Stop 10/04/16 at 15:59 Lorazepam (Ativan) 0.5 mg Q8H PRN IV ANXIETY; Start 10/04/16 at 12:30 Taco Castillo DO Oct 04, 2016 14:09
[2016-10-04] MEDS ORDERED: LIDOCAINE 1% (MPF) 5 ML VIAL ONE (15:03)
--- NOTE | 2016-10-04 15:52 | RADRPT ---
PROCEDURE: US guided right thoracentesis. CLINICAL INDICATION: Shortness of breath. Right pleural effusion. TECHNIQUE: Prior to the procedure, informed consent was obtained. The risks, benefits, and alternatives were e xplained to the patient or the patient's family, including but not limited to bleeding, infection, p ain, visceral or vascular damage, shock, pneumothorax, chest tube placement, air embolism, and . The patient or the patient's family understood the risks and the alternatives and wished to proce ed with the study. Informed written consent was obtained. A procedural pause was performed. The patient's name, date of , and procedure to be performed were verified. Ultrasound of the right hemithorax was performed in the axial and sagittal planes. A right pleural e ffusion is noted. Utilizing ultrasound guidance, optimal location for entry to the pleural cavity wa s ascertained. The overlying skin was prepped and draped in the usual sterile fashion. Approximate ly 10 ml of 1% Xylocaine was injected locally for pain control. Using ultrasound guidance, a 5-Fren Yueh catheter was introduced into the right pleural space without difficulty. Fluid was aspirated . COMPARISON: None. FINDINGS: Initial ultrasound demonstrates fluid in the right pleural space. Approximately 0.850 liters of ser ous fluid was aspirated and sent to the the patient's nursing station. IMPRESSION: 1. Satisfactory ultrasound-guided right thoracentesis. RPTAT: QQ .Elvis Henderson MD, MD Date Time Electronically viewed and signed by .Elvis Henderson MD, on 10/04/2016 15:52 .R/
--- NOTE | 2016-10-04 15:55 | RADRPT ---
PROCEDURE: XR Chest. CLINICAL INDICATION: Shortness of breath. Post right thoracentesis. TECHNIQUE: Single frontal view. COMPARISON: 10/01/2016. FINDINGS: The right arm PICC line remain in satisfactory position with the tip in the superior vena cava. The re is improved aeration of the right lung following right thoracentesis. There is left basilar atel ectasis, unchanged. The heart size is normal. There is calcification in the aorta consistent with atherosclerosis. There is no right pleural effusion. There is a small left pleural effusion. There is no pneumothorax. IMPRESSION: 1. No pneumothorax following right thoracentesis. RPTAT: QQ .Elvis Henderson MD, MD Date Time Electronically viewed and signed by .Elvis Henderson MD, MD on 10/04/2016 15:54 .R/
[2016-10-04] MEDS: TPN 1,000 ML IV SCH (16:00)
[2016-10-04] MEDS ORDERED: LIDOCAINE 1% (MDV) 20 ML INJ ONE (16:00)
[2016-10-04] MEDS ORDERED: DIPHENHYDRAMINE 50 MG INJ ONE (16:00)
--- NOTE | 2016-10-04 16:04 | CONS ---
Date/Time of Note Date/Time of Note DATE: 10/04/16 TIME: 16:01 Assessment/Plan Assessment/Plan Chief Complaint/Hosp Course SUBJECTIVE: The patient remains unchanged. No fevers. She is lying comfortably in bed, getting bld tx 1. Cancidas. 2. Flagyl. 3. Ciprofloxacin. PHYSICAL EXAMINATION: GENERAL: This is a fragile, elderly woman who is lying comfortably in bed. HEENT: Head atraumatic, normocephalic. Sclerae anicteric. Buccal mucosa dry. NECK: Supple, trachea midline. CHEST: Rise symmetrical. Breath sounds diminished to bases. HEART: S1, S2. ABDOMEN: Slightly distended with guarding on palpation. EXTREMITIES: Without cyanosis. ASSESSMENT: 1. Systemic inflammatory response syndrome with persistent leukocytosis secondary to multiple intraabdominal abscesses and now possible anastomotic leak status post CT-guided drainage catheter placement on 09/28/2016. 2. Acute anemia, gastroenterology on case. Bleeding scan had been negative and EGD negative. 3. Status post small bowel resection, abscess drainage with exploratory laparotomy on 09/20/2016. 4. Acute on chronic kidney disease. 5. B pleural effusions PLAN: Clinically unchanged, scheduled for thoracentesis, continue abx, surgical rec-s, GI/pulmonary rec-s DW staff Problems: Consultation Date/Type/Reason Admit Date/Time Sep 19, 2016 at 22:10 Type of Consultation: ID Referring Provider: YAMILE LARA MD Exam/Review of Systems Vital Signs Vitals Vital Signs Date Time Temp Pulse Resp B/P Pulse Ox O2 Delivery O2 Flow Rate FiO2 10/04/16 12:18 83 10/04/16 11:26 98.0 18 148/67 95 10/04/16 08:25 Nasal Cannula 2.0 Intake and Output 10/03/16 10/03/16 10/04/16 15:00 23:00 07:00 Intake Total 200 ml 200 ml Output Total 750 ml 1000 ml Balance -550 ml -800 ml Results Result Diagram: 10/04/16 0915 10/04/16 0915 Results 24 hrs Laboratory Tests Test 10/04/16 09:15 Activated Partial Thromboplast Time 31.1 Alanine Aminotransferase (ALT/SGPT) 31 Albumin 2.0 L Albumin/Globulin Ratio 0.57 Alkaline Phosphatase 52 Anion Gap 12 Aspartate Amino Transf (AST/SGOT) 16 Basophils # 0.0 Basophils % 0.2 Blood Urea Nitrogen 10 Calcium Level 7.3 L Carbon Dioxide Level 23 Chloride Level 105 Creatinine 1.00 Direct Bilirubin 0.00 Eosinophils # 0.3 Eosinophils % 1.5 Globulin 3.50 H Glucose Level 101 Hematocrit 22.0 L Hemoglobin 6.9 *L INR International Normalized Ratio 1.25 Indirect Bilirubin 0.0 Lymphocytes # 1.1 Lymphocytes % 7.0 L Mean Corpuscular Hemoglobin 28.2 L Mean Corpuscular Hemoglobin Concent 31.4 L Mean Corpuscular Volume 89.8 Mean Platelet Volume 9.5 Monocytes # 1.2 H Monocytes % 7.5 Neutrophils # 13.4 H Neutrophils % 82.9 H Nucleated Red Blood Cells # 0.0 Nucleated Red Blood Cells % 0.0 Platelet Count 376 Potassium Level 3.3 L Prothrombin Time 15.8 H Prothrombin Time Ratio 1.2 Red Blood Count 2.45 L Red Cell Distribution Width 15.9 H Sodium Level 137 Total Bilirubin 0.0 L Total Protein 5.5 L White Blood Count 16.2 H Medications Medications Current Medications Salmeterol Xinafoate/ Fluticasone (Advair 250/50 Diskus) 1 inh BID INH Last administered on 10/04/16 09:19; Admin Dose 1 INH; Start 09/20/16 at 09:00 Tiotropium [place] (Spiriva) 1 inh DAILY INH Last administered on 10/04/16 09: 18; Admin Dose 1 INH; Start 09/20/16 at 09:00 Dorzolamide/ Timolol (Cosopt) 1 drop BID LEFT EYE Last administered on 09:17; Admin Dose 1 DROP; Start 09/20/16 at 13:30 Latanoprost (Xalatan) 1 drop DAILY LEFT EYE Last administered on 10/03/16 09: 00; Admin Dose 1 DROP; Start 09/20/16 at 13:30 IV Flush (NS 10 ml) 10 ml PRN PRN IV IV PROTOCOL; Start 09/21/16 at 17:30 Acetaminophen (Tylenol Liquid) 650 mg Q6H PRN NGT PAIN AND OR ELEVATED TEMP Last administered on 10/02/16 23:17; Admin Dose 650 MG; Start 09/22/16 at 00:20 Hydralazine HCl (Apresoline) 10 mg Q6H PRN IV for sbp>160 Last administered on 09/29/16 19:30; Admin Dose 10 MG; Start 09/27/16 at 08:00 Pantoprazole (Protonix Iv) 40 mg BID@06,18 IV Last administered on 10/04/16 06: 16; Admin Dose 40 MG; Start 09/30/16 at 06:00 Morphine Sulfate (morphine) 2 mg Q2H PRN IV pain Last administered on 20:32; Admin Dose 2 MG; Start 09/29/16 at 20:30 Sertraline HCl (Zoloft) 100 mg HS PO Last administered on 10/03/16 21:58; Admin Dose 100 MG; Start 09/29/16 at 23:30 Ondansetron HCl 4 mg 4 mg Q6H PRN IV NAUSEA AND/OR VOMITING Last administered on 10/01/16 21:37; Admin Dose 4 MG; Start 09/30/16 at 04:00 Potassium Chloride/Dextrose/ Sod Cl (D5-1/2ns + KCl 20 Meq) 1,000 ml @ 75 mls/ hr [id number] IV Last administered on 10/03/16 22:14; Admin Dose 75 MLS/HR; Start 10/01/16 at 14:00 Ascorbic Acid (Vitamin C) 500 mg DAILY NGT Last administered on 10/04/16 09:17 ; Admin Dose 500 MG; Start 10/02/16 at 09:00 Ferrous Sulfate 325 mg 325 mg DAILY PO Last administered on 10/04/16 09:17; Admin Dose 325 MG; Start 10/01/16 at 17:25 Caspofungin 50 mg/ Sodium Chloride 250 ml @ 250 mls/hr Q24H IVPB Last administered on 10/03/16 21:00; Admin Dose 250 MLS/HR; Start 10/02/16 at 21:00 Ciprofloxacin/ Dextrose 200 ml @ 200 mls/hr Q12 IVPB Last administered on 09:16; Admin Dose 200 MLS/HR; Start 10/01/16 at 21:00 Metronidazole (Flagyl 500 Mg (Pmx)) 100 ml @ 100 mls/hr Q8 IVPB Last administered on 10/04/16 13:55; Admin Dose 100 MLS/HR; Start 10/01/16 at 22:00 Guaifenesin (Mucinex) 600 mg Q12 PO Last administered on 10/04/16 09:17; Admin Dose 600 MG; Start 10/01/16 at 21:30 Acetaminophen/ Hydrocodone Bitart 1 tab 1 tab Q6H PRN PO PAIN Last administered on 10/04/16 09:23; Admin Dose 1 TAB; Start 10/02/16 at 05:30 Total Parenteral Nutrition (Tpn) 1,000 ml @ 40 mls/hr Q24H IV ; Start 10/04/16 at 16:00 Lorazepam (Ativan) 0.5 mg Q8H PRN IV ANXIETY; Start 10/04/16 at 12:30 YASMANY BECERRA NP Oct 04, 2016 16:04
--- NOTE | 2016-10-04 16:26 | PN ---
Date/Time of Note Date/Time of Note DATE: 10/04/16 TIME: 16:13 Assessment/Plan VTE Prophylaxis VTE Prophylaxis Intervention: SCD's Assessment/Plan Chief Complaint/Hosp Course 1. Small bowel obstruction s/p Recent Laproscopic Appendectomy Status post small bowel resection x2. Continue postsurgical care, pain management and IV antibiotics Diet as per general surgery recommendations, restarted TPN secondary to low appetite, discussed with surgery Abdominal x-ray negative for obstruction 2. Sepsis Likely secondary to intra-abdominal abscess and postoperatively infectious disease doctor has been consulted, continue Zosyn and Flagyl Follow-up blood culture, continue aggressive IV fluids 3. Hyperkalemia Resolved status post IV fluid, nephrology has been consulted, follow-up electrolytes in a.m. 4 . Abdominal abscess x3 possibly 2/2 anastomotic leak as noted on recent CT Abd Status post drainage by interventional radiologist and Diagnostic laparoscopy, Exploratory laparotomy and abdominal washout. Status post CT-guided drainage by interventional radiologist 09/28/2016 , continue aggressive IV antibiotics CT Abd on 10/03 shows resolving abscess in the RLQ but persistent abscesses elsewhere that are mildly improved, Surgery has ordered another CT guided drainage to be done Surgery aware of leak 3. COPD 4. Essential hypertension, stable 5. Acute anemia 2/2 Anemia of Chronic Dz vs slow GI bleed possibly from anastomotic leak Status post colonoscopy and endoscopy that showed no source of bleeding Negative bleeding scan, 2 units given today 6. Pleural effusion, start Lasix, continue IV antibiotics, pulmonology following Thoracentesis today 7. Acute renal insufficiency, likely secondary to dehydration versus anemia, follow-up renal panel in a.m. nephrology following-stable 7. Hypothyroidism PPx- SCD's Problems: Subjective 24 Hr Interval Summary Respiratory: shortness of breath Exam/Review of Systems Vital Signs Vitals Vital Signs Date Time Temp Pulse Resp B/P Pulse Ox O2 Delivery O2 Flow Rate FiO2 10/04/16 12:18 83 10/04/16 11:26 98.0 18 148/67 95 10/04/16 08:25 Nasal Cannula 2.0 Intake and Output 10/03/16 10/03/16 10/04/16 15:00 23:00 07:00 Intake Total 200 ml 200 ml Output Total 750 ml 1000 ml Balance -550 ml -800 ml Exam Constitutional: alert Respiratory: clear to auscultation Cardiovascular: regular rate and rhythm Gastrointestinal: soft, No distended Musculoskeletal: nl extremities to inspection Results Result Diagram: 10/04/1615 10/04/1615 Results 24 hrs Laboratory Tests Test 10/04/16 09:15 Activated Partial Thromboplast Time 31.1 Alanine Aminotransferase (ALT/SGPT) 31 Albumin 2.0 L Albumin/Globulin Ratio 0.57 Alkaline Phosphatase 52 Anion Gap 12 Aspartate Amino Transf (AST/SGOT) 16 Basophils # 0.0 Basophils % 0.2 Blood Urea Nitrogen 10 Calcium Level 7.3 L Carbon Dioxide Level 23 Chloride Level 105 Creatinine 1.00 Direct Bilirubin 0.00 Eosinophils # 0.3 Eosinophils % 1.5 Globulin 3.50 H Glucose Level 101 Hematocrit 22.0 L Hemoglobin 6.9 *L INR International Normalized Ratio 1.25 Indirect Bilirubin 0.0 Lymphocytes # 1.1 Lymphocytes % 7.0 L Mean Corpuscular Hemoglobin 28.2 L Mean Corpuscular Hemoglobin Concent 31.4 L Mean Corpuscular Volume 89.8 Mean Platelet Volume 9.5 Monocytes # 1.2 H Monocytes % 7.5 Neutrophils # 13.4 H Neutrophils % 82.9 H Nucleated Red Blood Cells # 0.0 Nucleated Red Blood Cells % 0.0 Platelet Count 376 Potassium Level 3.3 L Prothrombin Time 15.8 H Prothrombin Time Ratio 1.2 Red Blood Count 2.45 L Red Cell Distribution Width 15.9 H Sodium Level 137 Total Bilirubin 0.0 L Total Protein 5.5 L White Blood Count 16.2 H Medications Medications Current Medications Salmeterol Xinafoate/ Fluticasone (Advair 250/50 Diskus) 1 inh BID INH Last administered on 10/04/16 09:19; Admin Dose 1 INH; Start 09/20/16 at 09:00 Tiotropium [place] (Spiriva) 1 inh DAILY INH Last administered on 10/04/16 09: 18; Admin Dose 1 INH; Start 09/20/16 at 09:00 Dorzolamide/ Timolol (Cosopt) 1 drop BID LEFT EYE Last administered on 09:17; Admin Dose 1 DROP; Start 09/20/16 at 13:30 Latanoprost (Xalatan) 1 drop DAILY LEFT EYE Last administered on 10/03/16 09: 00; Admin Dose 1 DROP; Start 09/20/16 at 13:30 IV Flush (NS 10 ml) 10 ml PRN PRN IV IV PROTOCOL; Start 09/21/16 at 17:30 Acetaminophen (Tylenol Liquid) 650 mg Q6H PRN NGT PAIN AND OR ELEVATED TEMP Last administered on 10/02/16 23:17; Admin Dose 650 MG; Start 09/22/16 at 00:20 Hydralazine HCl (Apresoline) 10 mg Q6H PRN IV for sbp>160 Last administered on 09/29/16 19:30; Admin Dose 10 MG; Start 09/27/16 at 08:00 Pantoprazole (Protonix Iv) 40 mg BID@06,18 IV Last administered on 10/04/16 06: 16; Admin Dose 40 MG; Start 09/30/16 at 06:00 Morphine Sulfate (morphine) 2 mg Q2H PRN IV pain Last administered on 20:32; Admin Dose 2 MG; Start 09/29/16 at 20:30 Sertraline HCl (Zoloft) 100 mg HS PO Last administered on 10/03/16 21:58; Admin Dose 100 MG; Start 09/29/16 at 23:30 Ondansetron HCl 4 mg 4 mg Q6H PRN IV NAUSEA AND/OR VOMITING Last administered on 10/01/16 21:37; Admin Dose 4 MG; Start 09/30/16 at 04:00 Potassium Chloride/Dextrose/ Sod Cl (D5-1/2ns + KCl 20 Meq) 1,000 ml @ 75 mls/ hr [id number] IV Last administered on 10/03/16 22:14; Admin Dose 75 MLS/HR; Start 10/01/16 at 14:00 Ascorbic Acid (Vitamin C) 500 mg DAILY NGT Last administered on 10/04/16 09:17 ; Admin Dose 500 MG; Start 10/02/16 at 09:00 Ferrous Sulfate 325 mg 325 mg DAILY PO Last administered on 10/04/16 09:17; Admin Dose 325 MG; Start 10/01/16 at 17:25 Caspofungin 50 mg/ Sodium Chloride 250 ml @ 250 mls/hr Q24H IVPB Last administered on 10/03/16 21:00; Admin Dose 250 MLS/HR; Start 10/02/16 at 21:00 Ciprofloxacin/ Dextrose 200 ml @ 200 mls/hr Q12 IVPB Last administered on 09:16; Admin Dose 200 MLS/HR; Start 10/01/16 at 21:00 Metronidazole (Flagyl 500 Mg (Pmx)) 100 ml @ 100 mls/hr Q8 IVPB Last administered on 10/04/16 13:55; Admin Dose 100 MLS/HR; Start 10/01/16 at 22:00 Guaifenesin (Mucinex) 600 mg Q12 PO Last administered on 10/04/16 09:17; Admin Dose 600 MG; Start 10/01/16 at 21:30 Acetaminophen/ Hydrocodone Bitart 1 tab 1 tab Q6H PRN PO PAIN Last administered on 10/04/16 09:23; Admin Dose 1 TAB; Start 10/02/16 at 05:30 Total Parenteral Nutrition (Tpn) 1,000 ml @ 40 mls/hr Q24H IV ; Start 10/04/16 at 16:00 Lorazepam (Ativan) 0.5 mg Q8H PRN IV ANXIETY; Start 10/04/16 at 12:30 ELIZA DUNNE Oct 04, 2016 16:24
--- NOTE | 2016-10-04 17:40 | CONS ---
Date/Time of Note Date/Time of Note DATE: 10/04/16 TIME: 17:38 Assessment/Plan Assessment/Plan Additional Assessment/Plan IMPRESSION: 1. Gastrointestinal bleeding.bleeding scan negative,EGD negative,bleeding seems to have stopped 2. Multiple pelvic abscesses, status post drain.draining seropurulent liquid 3. Status post surgery for small-bowel obstruction, and also laparoscopic removal of the appendix. 4. Chronic obstructive pulmonary disease. 5. Hypertension. 6. Mild renal insufficiency. Plan monitor H&H surgical f/u antibiotics repeat CT,possible anastomotic leak, surgical f/u Consultation Date/Type/Reason Admit Date/Time Sep 19, 2016 at 22:10 Type of Consultation: ID Referring Provider: YAMILE LARA MD 24 HR Interval Summary Constitutional: improved Exam/Review of Systems Vital Signs Vitals Vital Signs Date Time Temp Pulse Resp B/P Pulse Ox O2 Delivery O2 Flow Rate FiO2 10/04/16 16:55 98.4 90 19 161/63 97 10/04/16 08:25 Nasal Cannula 2.0 Intake and Output 10/03/16 10/03/16 10/04/16 15:00 23:00 07:00 Intake Total 200 ml 200 ml Output Total 750 ml 1000 ml Balance -550 ml -800 ml Exam Constitutional: alert, oriented, well developed Psych: nl mood/affect, no complaints Head: atraumatic, normocephalic Eyes: EOMI, PERRL, nl conjunctiva, nl lids, nl sclera ENMT: nl external ears & nose, nl lips & teeth, nl nasal mucosa & septum Neck: non-tender, supple Respiratory: clear to auscultation, normal air movement Cardiovascular: nl pulses, regular rate and rhythm Gastrointestinal: nl liver, spleen, non-tender, soft Musculoskeletal: nl extremities to inspection, nl gait and stance Extremities: normal pulses 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, nl mental status, nl speech, nl strength Skin: nl turgor, No rash or lesions Lymph: nl lymph nodes Results Result Diagram: 10/04/1615 10/04/1615 Results 24 hrs Laboratory Tests Test 10/04/16 09:15 Activated Partial Thromboplast Time 31.1 Alanine Aminotransferase (ALT/SGPT) 31 Albumin 2.0 L Albumin/Globulin Ratio 0.57 Alkaline Phosphatase 52 Anion Gap 12 Aspartate Amino Transf (AST/SGOT) 16 Basophils # 0.0 Basophils % 0.2 Blood Urea Nitrogen 10 Calcium Level 7.3 L Carbon Dioxide Level 23 Chloride Level 105 Creatinine 1.00 Direct Bilirubin 0.00 Eosinophils # 0.3 Eosinophils % 1.5 Globulin 3.50 H Glucose Level 101 Hematocrit 22.0 L Hemoglobin 6.9 *L INR International Normalized Ratio 1.25 Indirect Bilirubin 0.0 Lymphocytes # 1.1 Lymphocytes % 7.0 L Mean Corpuscular Hemoglobin 28.2 L Mean Corpuscular Hemoglobin Concent 31.4 L Mean Corpuscular Volume 89.8 Mean Platelet Volume 9.5 Monocytes # 1.2 H Monocytes % 7.5 Neutrophils # 13.4 H Neutrophils % 82.9 H Nucleated Red Blood Cells # 0.0 Nucleated Red Blood Cells % 0.0 Platelet Count 376 Potassium Level 3.3 L Prothrombin Time 15.8 H Prothrombin Time Ratio 1.2 Red Blood Count 2.45 L Red Cell Distribution Width 15.9 H Sodium Level 137 Total Bilirubin 0.0 L Total Protein 5.5 L White Blood Count 16.2 H Medications Medications Current Medications Salmeterol Xinafoate/ Fluticasone (Advair 250/50 Diskus) 1 inh BID INH Last administered on 10/04/16 09:19; Admin Dose 1 INH; Start 09/20/16 at 09:00 Tiotropium [place] (Spiriva) 1 inh DAILY INH Last administered on 10/04/16 09: 18; Admin Dose 1 INH; Start 09/20/16 at 09:00 Dorzolamide/ Timolol (Cosopt) 1 drop BID LEFT EYE Last administered on 09:17; Admin Dose 1 DROP; Start 09/20/16 at 13:30 Latanoprost (Xalatan) 1 drop DAILY LEFT EYE Last administered on 10/03/16 09: 00; Admin Dose 1 DROP; Start 09/20/16 at 13:30 IV Flush (NS 10 ml) 10 ml PRN PRN IV IV PROTOCOL; Start 09/21/16 at 17:30 Acetaminophen (Tylenol Liquid) 650 mg Q6H PRN NGT PAIN AND OR ELEVATED TEMP Last administered on 10/02/16 23:17; Admin Dose 650 MG; Start 09/22/16 at 00:20 Hydralazine HCl (Apresoline) 10 mg Q6H PRN IV for sbp>160 Last administered on 09/29/16 19:30; Admin Dose 10 MG; Start 09/27/16 at 08:00 Pantoprazole (Protonix Iv) 40 mg BID@06,18 IV Last administered on 10/04/16 06: 16; Admin Dose 40 MG; Start 09/30/16 at 06:00 Morphine Sulfate (morphine) 2 mg Q2H PRN IV pain Last administered on 20:32; Admin Dose 2 MG; Start 09/29/16 at 20:30 Sertraline HCl (Zoloft) 100 mg HS PO Last administered on 10/03/16 21:58; Admin Dose 100 MG; Start 09/29/16 at 23:30 Ondansetron HCl 4 mg 4 mg Q6H PRN IV NAUSEA AND/OR VOMITING Last administered on 10/01/16 21:37; Admin Dose 4 MG; Start 09/30/16 at 04:00 Potassium Chloride/Dextrose/ Sod Cl (D5-1/2ns + KCl 20 Meq) 1,000 ml @ 75 mls/ hr [id number] IV Last administered on 10/03/16 22:14; Admin Dose 75 MLS/HR; Start 10/01/16 at 14:00 Ascorbic Acid (Vitamin C) 500 mg DAILY NGT Last administered on 10/04/16 09:17 ; Admin Dose 500 MG; Start 10/02/16 at 09:00 Ferrous Sulfate 325 mg 325 mg DAILY PO Last administered on 10/04/16 09:17; Admin Dose 325 MG; Start 10/01/16 at 17:25 Caspofungin 50 mg/ Sodium Chloride 250 ml @ 250 mls/hr Q24H IVPB Last administered on 10/03/16 21:00; Admin Dose 250 MLS/HR; Start 10/02/16 at 21:00 Ciprofloxacin/ Dextrose 200 ml @ 200 mls/hr Q12 IVPB Last administered on 09:16; Admin Dose 200 MLS/HR; Start 10/01/16 at 21:00 Metronidazole (Flagyl 500 Mg (Pmx)) 100 ml @ 100 mls/hr Q8 IVPB Last administered on 10/04/16 13:55; Admin Dose 100 MLS/HR; Start 10/01/16 at 22:00 Guaifenesin (Mucinex) 600 mg Q12 PO Last administered on 10/04/16 09:17; Admin Dose 600 MG; Start 10/01/16 at 21:30 Acetaminophen/ Hydrocodone Bitart 1 tab 1 tab Q6H PRN PO PAIN Last administered on 10/04/16 09:23; Admin Dose 1 TAB; Start 10/02/16 at 05:30 Total Parenteral Nutrition (Tpn) 1,000 ml @ 40 mls/hr Q24H IV ; Start 10/04/16 at 16:00 Lorazepam (Ativan) 0.5 mg Q8H PRN IV ANXIETY; Start 10/04/16 at 12:30 MICHELE MIRELES MD Oct 04, 2016 17:40
--- NOTE | 2016-10-04 18:13 | RADRPT ---
PROCEDURE: CT Pelvis without contrast. CLINICAL INDICATION: Pelvic pain. Pelvic fluid collection. TECHNIQUE: CT scan of the pelvis without intravenous contrast was performed. Helical axial section s were obtained through the pelvis without intravenous contrast enhancement. Coronal and sagittal r eformatted images were obtained from the axial source images. Images were reviewed on a high-res[employer] PACS workstation. Total exam DLP is unobtainable. CTDIvol is unobtainable. One or more of the following dose reduction techniques were used: Automated exposure control, adjustment of the mA and/ or kV according to patient size, use of iterative reconstruction technique. COMPARISON: None. FINDINGS: The scan was performed for evaluation of pelvic fluid collection for potential drainage. As seen previously, there is a drainage catheter in the right lower quadrant anteriorly. The fluid collection previously seen at this site is no longer present. Postsurgical changes are present in t he bowel. The fluid collection anteriorly in the midline pelvis is slightly smaller measuring 2.4 x 5.1 cm. The fluid collection posteriorly in the pelvis is also smaller measuring 2.2 x 5.7 cm. There is no new fluid collection or mass. There are degenerative changes of the spine. IMPRESSION: 1. Drainage catheter in the right lower quadrant anteriorly. Fluid collection at this site no long er present. 2. Postoperative changes of the bowel. 3. The fluid collections anteriorly in the midline pelvis and posteriorly in the left pelvis are sl ightly smaller than seen previously. These would not be amendable to percutaneous drainage. Contin ued follow-up is advised. 4. Degenerative changes of the spine. Call report: A call report of the findings was made to Dr. Quinn on 10/04/2016 at 1730 hours. RPTAT: QQ .Elvis Henderson MD, MD Date Time Electronically viewed and signed by .Elvis Henderson MD, on 10/04/2016 18:13 .R/
[2016-10-04] MEDS: hydrALAzine 20 MG INJ IV PRN (18:30)
[2016-10-04] MEDS: D5W-0.45 NACL + KCL 20 MEQ 1,000 ML IV SCH (22:00)
[2016-10-04] MEDS: CASPOFUNGIN 50 MG in SOD CHLORIDE 0.9% 250 ML IVPB SCH (22:06)
[2016-10-04] MEDS: SERTRALINE 100 MG TAB PO SCH (22:07)
[2016-10-04] MEDS: ZOLPIDEM 5 MG TAB PO PRN (23:04)
[2016-10-05] VITALS (7 sets, daily range): BP systolic 133–162; BP diastolic 65–77; PULSE 84–92; RESP 20
[2016-10-05] MEDS: ZOLPIDEM 5 MG TAB PO PRN ×2 (00:05→22:52)
[2016-10-05] MEDS: PANTOPRAZOLE 40 MG INJ IV SCH ×2 (06:36→18:24)
[2016-10-05] MEDS: metroNIDAZOLE 500 MG/NS (PMX) 100 ML IVPB SCH ×3 (06:36→22:52)
[2016-10-05] MEDS: morphine 2 MG INJ IV PRN (07:43)
[2016-10-05] MEDS: ONDANSETRON 4 MG INJ IV PRN (07:48)
--- NOTE | 2016-10-05 08:39 | CONS ---
Date/Time of Note Date/Time of Note DATE: 10/05/16 TIME: 08:38 Assessment/Plan Assessment/Plan Additional Assessment/Plan 1. Sepsis 2/2 to # 2 2. Multiple intra-abdominal abscesses, status post CT-guided aspiration with catheter placement on 09/28/2016.Status post small bowel resection and abscess drainage with exploratory laparotomy on 09/20/2016. 2. Acute kidney injury secondary to acute tubular necrosis from sepsis 3. Acute hyperkalemia with metabolic acidosis likely secondary to acute kidney injury.- now resolved 4. Small bowel obstructions status post exploratory laparotomy and abdominal washout- on TPN currently 5. History of recent laparoscopic appendectomy. 6. History of hypertension 7. History of chronic obstructive pulmonary disease. 8. History of hypothyroidism. PLAN: s/p thoracentesis 800 cc drained, Pelvic CT did not show enough fluid on left pelvis to place a drain catheter, no labs today to review yet continue current IVF with KCL making good urine will follow up on pending labs Consultation Date/Type/Reason Admit Date/Time Sep 19, 2016 at 22:10 Initial Consult Date Sep Type of Consultation: NEPHROLOGY Reason for Consultation acute kidney injury, hyperkalemia Referring Provider: YAMILE LARA MD 24 HR Interval Summary Free Text/Dictation s/p thoracentesis 800 cc drained, pelvic CT did not show enough fluid on left side to drain, BP stable, no labs today yet to review Exam/Review of Systems Vital Signs Vitals Vital Signs Date Time Temp Pulse Resp B/P Pulse Ox O2 Delivery O2 Flow Rate FiO2 10/05/16 07:04 98.3 92 20 162/77 94 10/04/16 22:34 2.0 10/04/16 20:00 Nasal Cannula Intake and Output 10/04/16 10/04/16 10/05/16 15:00 23:00 07:00 Intake Total 300 ml 600 ml 450 ml Output Total 0 ml 2450 ml 850 ml Balance 300 ml -1850 ml -400 ml Exam Constitutional: alert, oriented Head: normocephalic Neck: supple Respiratory: other (Coarse breath sounds bilaterally, decreased at the bases) Cardiovascular: other (S1-S2 heard), regular rate and rhythm Gastrointestinal: bowel sounds, non-tender, soft + right drain catheter present Extremities: edema (Trace) Results Result Diagram: 10/04/16 0915 10/04/16 0915 Results 24 hrs Laboratory Tests Test 10/04/16 09:15 Activated Partial Thromboplast Time 31.1 Alanine Aminotransferase (ALT/SGPT) 31 Albumin 2.0 L Albumin/Globulin Ratio 0.57 Alkaline Phosphatase 52 Anion Gap 12 Aspartate Amino Transf (AST/SGOT) 16 Basophils # 0.0 Basophils % 0.2 Blood Urea Nitrogen 10 Calcium Level 7.3 L Carbon Dioxide Level 23 Chloride Level 105 Creatinine 1.00 Direct Bilirubin 0.00 Eosinophils # 0.3 Eosinophils % 1.5 Globulin 3.50 H Glucose Level 101 Hematocrit 22.0 L Hemoglobin 6.9 *L INR International Normalized Ratio 1.25 Indirect Bilirubin 0.0 Lymphocytes # 1.1 Lymphocytes % 7.0 L Mean Corpuscular Hemoglobin 28.2 L Mean Corpuscular Hemoglobin Concent 31.4 L Mean Corpuscular Volume 89.8 Mean Platelet Volume 9.5 Monocytes # 1.2 H Monocytes % 7.5 Neutrophils # 13.4 H Neutrophils % 82.9 H Nucleated Red Blood Cells # 0.0 Nucleated Red Blood Cells % 0.0 Platelet Count 376 Potassium Level 3.3 L Prothrombin Time 15.8 H Prothrombin Time Ratio 1.2 Red Blood Count 2.45 L Red Cell Distribution Width 15.9 H Sodium Level 137 Total Bilirubin 0.0 L Total Protein 5.5 L White Blood Count 16.2 H Medications Medications Current Medications Salmeterol Xinafoate/ Fluticasone (Advair 250/50 Diskus) 1 inh BID INH Last administered on 10/04/16 22:06; Admin Dose 1 INH; Start 09/20/16 at 09:00 Tiotropium [place] (Spiriva) 1 inh DAILY INH Last administered on 10/04/16 09: 18; Admin Dose 1 INH; Start 09/20/16 at 09:00 Dorzolamide/ Timolol (Cosopt) 1 drop BID LEFT EYE Last administered on 22:07; Admin Dose 1 DROP; Start 09/20/16 at 13:30 Latanoprost (Xalatan) 1 drop DAILY LEFT EYE Last administered on 10/03/16 09: 00; Admin Dose 1 DROP; Start 09/20/16 at 13:30 IV Flush (NS 10 ml) 10 ml PRN PRN IV IV PROTOCOL; Start 09/21/16 at 17:30 Acetaminophen (Tylenol Liquid) 650 mg Q6H PRN NGT PAIN AND OR ELEVATED TEMP Last administered on 10/02/16 23:17; Admin Dose 650 MG; Start 09/22/16 at 00:20 Hydralazine HCl (Apresoline) 10 mg Q6H PRN IV for sbp>160 Last administered on 10/04/16 18:30; Admin Dose 10 MG; Start 09/27/16 at 08:00 Pantoprazole (Protonix Iv) 40 mg BID@06,18 IV Last administered on 10/05/16 06: 36; Admin Dose 40 MG; Start 09/30/16 at 06:00 Morphine Sulfate (morphine) 2 mg Q2H PRN IV pain Last administered on 10/05/16 07:43; Admin Dose 2 MG; Start 09/29/16 at 20:30 Sertraline HCl (Zoloft) 100 mg HS PO Last administered on 10/04/16 22:07; Admin Dose 100 MG; Start 09/29/16 at 23:30 Ondansetron HCl 4 mg 4 mg Q6H PRN IV NAUSEA AND/OR VOMITING Last administered on 10/05/16 07:48; Admin Dose 4 MG; Start 09/30/16 at 04:00 Potassium Chloride/Dextrose/ Sod Cl (D5-1/2ns + KCl 20 Meq) 1,000 ml @ 75 mls/ hr [id number] IV Last administered on 10/04/16 22:00; Admin Dose 75 MLS/HR; Start 10/01/16 at 14:00 Ascorbic Acid (Vitamin C) 500 mg DAILY NGT Last administered on 10/04/16 09:17 ; Admin Dose 500 MG; Start 10/02/16 at 09:00 Ferrous Sulfate 325 mg 325 mg DAILY PO Last administered on 10/04/16 09:17; Admin Dose 325 MG; Start 10/01/16 at 17:25 Caspofungin 50 mg/ Sodium Chloride 250 ml @ 250 mls/hr Q24H IVPB Last administered on 10/04/16 22:06; Admin Dose 250 MLS/HR; Start 10/02/16 at 21:00 Ciprofloxacin/ Dextrose 200 ml @ 200 mls/hr Q12 IVPB Last administered on 22:06; Admin Dose 200 MLS/HR; Start 10/01/16 at 21:00 Metronidazole (Flagyl 500 Mg (Pmx)) 100 ml @ 100 mls/hr Q8 IVPB Last administered on 10/05/16 06:36; Admin Dose 100 MLS/HR; Start 10/01/16 at 22:00 Guaifenesin (Mucinex) 600 mg Q12 PO Last administered on 10/04/16 22:07; Admin Dose 600 MG; Start 10/01/16 at 21:30 Acetaminophen/ Hydrocodone Bitart 1 tab 1 tab Q6H PRN PO PAIN Last administered on 10/04/16 19:21; Admin Dose 1 TAB; Start 10/02/16 at 05:30 Total Parenteral Nutrition (Tpn) 1,000 ml @ 40 mls/hr Q24H IV ; Start 10/04/16 at 16:00 Lorazepam (Ativan) 0.5 mg Q8H PRN IV ANXIETY; Start 10/04/16 at 12:30 MADISYN MANUEL MD Oct 05, 2016 08:39
[2016-10-05] MEDS: TIOTROPIUM 18 MCG CAPSULE INHA DEV INH SCH (09:00)
[2016-10-05] MEDS: LATANOPROST 0.005% 2.5 ML OPH LEFT EYE SCH (09:00)
[2016-10-05] MEDS: SALMETEROL/FLUTICASONE 250/50 INHA INH SCH ×2 (09:11→20:45)
[2016-10-05] MEDS: ASCORBIC ACID 500 MG TAB NGT SCH (09:11)
[2016-10-05] MEDS: DORZOLAMIDE/TIMOLOL 10 ML OPH LEFT EYE SCH ×2 (09:11→20:45)
[2016-10-05] MEDS: FERROUS SULFATE (EC) 325 MG TAB PO SCH (09:11)
[2016-10-05] MEDS: GUAIFENESIN LA 600 MG TABSR PO SCH ×2 (09:11→20:45)
[2016-10-05] MEDS: CIPROFLOXACIN 400MG/D5W 200 ML IVPB SCH ×2 (09:12→20:17)
--- NOTE | 2016-10-05 09:57 | CONS ---
Date/Time of Note Date/Time of Note DATE: 10/05/16 TIME: 09:54 Assessment/Plan Assessment/Plan Additional Assessment/Plan Chest x-ray was reviewed post thoracentesis from yesterday which is showing marked improvement in bilateral pleural effusions. There is a very scant hazy infiltrate in the left lower lobe with visualization of the left hemidiaphragm. CT abdomen also was reviewed from yesterday which is showing improvement in pelvic fluid collections. Assessment and recommendations; 1. Patient admitted with abdominal pain and has had a long hospital stay due to medications from pelvic abscesses requiring percutaneous drainage. However for the last couple of days the patient is having improving clinical course.. 2. Significant bilateral pleural effusion status post right thoracentesis yesterday with marked radiological improvement. Continue current treatment for now, I will sign off please reconsult if needed . Consultation Date/Type/Reason Admit Date/Time Sep 19, 2016 at 22:10 Type of Consultation: Pulmonary Referring Provider: YAMILE LARA MD 24 HR Interval Summary Free Text/Dictation Patient condition is improved. She reports significantly decreased shortness of breath now. Status post right thoracentesis yesterday 850 mL of serous fluid was removed. Abdominal pain also is improving. Patient denies nausea vomiting. Able to eat. General examination; elderly lady, currently in no distress. Laying comfortably in bed. Exam/Review of Systems Vital Signs Vitals Vital Signs Date Time Temp Pulse Resp B/P Pulse Ox O2 Delivery O2 Flow Rate FiO2 10/05/16 08:47 90 10/05/16 07:04 98.3 20 162/77 94 10/04/16 22:34 2.0 10/04/16 20:00 Nasal Cannula Intake and Output 10/04/16 10/04/16 10/05/16 15:00 23:00 07:00 Intake Total 300 ml 600 ml 450 ml Output Total 0 ml 2450 ml 850 ml Balance 300 ml -1850 ml -400 ml Exam HEENT examination; supple neck, no JVD. No lymphadenopathy. Midline trachea. No thyromegaly. Pharynx is clear. Patient multiple carious teeth. Chest examination; clear to auscultation bilaterally. S1-S2 audible, no murmurs. Regular rhythm. Abdomen examination; softer. Bowel sounds audible. Midline dressing in place. Right lower quadrant STEPHANIE drain in place. There is reduction in tenderness. Extremity examination; no peripheral edema. 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 Results Result Diagram: 10/04/1691410/04/16914 Medications Medications Current Medications Salmeterol Xinafoate/ Fluticasone (Advair 250/50 Diskus) 1 inh BID INH Last administered on 10/05/16 09:11; Admin Dose 1 INH; Start 09/20/16 at 09:00 Tiotropium [place] (Spiriva) 1 inh DAILY INH Last administered on 10/04/16 09: 18; Admin Dose 1 INH; Start 09/20/16 at 09:00 Dorzolamide/ Timolol (Cosopt) 1 drop BID LEFT EYE Last administered on 09:11; Admin Dose 1 DROP; Start 09/20/16 at 13:30 Latanoprost (Xalatan) 1 drop DAILY LEFT EYE Last administered on 10/03/16 09: 00; Admin Dose 1 DROP; Start 09/20/16 at 13:30 IV Flush (NS 10 ml) 10 ml PRN PRN IV IV PROTOCOL; Start 09/21/16 at 17:30 Acetaminophen (Tylenol Liquid) 650 mg Q6H PRN NGT PAIN AND OR ELEVATED TEMP Last administered on 10/02/16 23:17; Admin Dose 650 MG; Start 09/22/16 at 00:20 Hydralazine HCl (Apresoline) 10 mg Q6H PRN IV for sbp>160 Last administered on 10/04/16 18:30; Admin Dose 10 MG; Start 09/27/16 at 08:00 Pantoprazole (Protonix Iv) 40 mg BID@,18 IV Last administered on 10/05/16 06: 36; Admin Dose 40 MG; Start 09/30/16 at 06:00 Morphine Sulfate (morphine) 2 mg Q2H PRN IV pain Last administered on 10/05/16 07:43; Admin Dose 2 MG; Start 09/29/16 at 20:30 Sertraline HCl (Zoloft) 100 mg HS PO Last administered on 10/04/16 22:07; Admin Dose 100 MG; Start 09/29/16 at 23:30 Ondansetron HCl 4 mg 4 mg Q6H PRN IV NAUSEA AND/OR VOMITING Last administered on 10/05/16 07:48; Admin Dose 4 MG; Start 09/30/16 at 04:00 Potassium Chloride/Dextrose/ Sod Cl (D5-1/2ns + KCl 20 Meq) 1,000 ml @ 75 mls/ hr [id number] IV Last administered on 10/04/16 22:00; Admin Dose 75 MLS/HR; Start 10/01/16 at 14:00 Ascorbic Acid (Vitamin C) 500 mg DAILY NGT Last administered on 10/05/16 09:11 ; Admin Dose 500 MG; Start 10/02/16 at 09:00 Ferrous Sulfate 325 mg 325 mg DAILY PO Last administered on 10/05/16 09:11; Admin Dose 325 MG; Start 10/01/16 at 17:25 Caspofungin 50 mg/ Sodium Chloride 250 ml @ 250 mls/hr Q24H IVPB Last administered on 10/04/16 22:06; Admin Dose 250 MLS/HR; Start 10/02/16 at 21:00 Ciprofloxacin/ Dextrose 200 ml @ 200 mls/hr Q12 IVPB Last administered on 09:12; Admin Dose 200 MLS/HR; Start 10/01/16 at 21:00 Metronidazole (Flagyl 500 Mg (Pmx)) 100 ml @ 100 mls/hr Q8 IVPB Last administered on 10/05/16 06:36; Admin Dose 100 MLS/HR; Start 10/01/16 at 22:00 Guaifenesin (Mucinex) 600 mg Q12 PO Last administered on 10/05/16 09:11; Admin Dose 600 MG; Start 10/01/16 at 21:30 Acetaminophen/ Hydrocodone Bitart 1 tab 1 tab Q6H PRN PO PAIN Last administered on 10/04/16 19:21; Admin Dose 1 TAB; Start 10/02/16 at 05:30 Total Parenteral Nutrition (Tpn) 1,000 ml @ 40 mls/hr Q24H IV ; Start 10/04/16 at 16:00 Lorazepam (Ativan) 0.5 mg Q8H PRN IV ANXIETY; Start 10/04/16 at 12:30 NATALY PAGE Oct 05, 2016 09:57
[2016-10-05 10:13] LABS: ADD SCAN DIFF NO
[2016-10-05 10:24] LABS: BASOPHILS % 0.3 % (0.0-2.0); EOSINOPHILS # 0.2 10^3/ul (0.0-0.5); EOSINOPHILS % 1.1 % (0.0-7.0); HEMATOCRIT 29.7 % (37.0-47.0); LYMPHOCYTES # 1.1 10^3/ul (0.8-2.9); LYMPHOCYTES % 7.2 % (15.0-51.0); MEAN CORPUSCULAR HEMOGLOBIN 29.2 pg (29.0-33.0); MEAN CORPUSCULAR HGB CONC 33.7 g/dl (32.0-37.0); MEAN CORPUSCULAR VOLUME 86.6 fl (82.0-101.0); MEAN PLATELET VOLUME 9.1 fl (7.4-10.4); MONOCYTE # 1.4 10^3/ul (0.3-0.9); NEUTROPHIL # 12.2 10^3/ul (1.6-7.5); NEUTROPHILS % 81.9 % (39.0-77.0); PLATELET COUNT 350 10^3/UL (140-415); RED BLOOD COUNT 3.43 10^6/ul (4.20-5.40); RED CELL DISTRIBUTION WIDTH 15.1 % (11.5-14.5); WHITE BLOOD COUNT 14.9 10^3/ul (4.8-10.8)
[2016-10-05 10:29] LABS: POTASSIUM 3.5 mmol/L (3.5-5.1)
[2016-10-05 10:31] LABS: CREATININE 1.03 mg/dl (0.44-1.00)
[2016-10-05 10:32] LABS: CALCIUM 7.5 mg/dl (8.4-10.2)
[2016-10-05] MEDS: D5W-0.45 NACL + KCL 20 MEQ 1,000 ML IV SCH ×2 (11:20→21:33)
--- NOTE | 2016-10-05 11:20 | CONS ---
Date/Time of Note Date/Time of Note DATE: 10/05/16 TIME: 11:18 Assessment/Plan Assessment/Plan Additional Assessment/Plan Assessment/Plan Additional Assessment/Plan IMPRESSION: 1. Gastrointestinal bleeding.bleeding scan negative,EGD negative,bleeding seems to have stopped 2. Multiple pelvic abscesses, status post drain.draining seropurulent liquid 3. Status post surgery for small-bowel obstruction, and also laparoscopic removal of the appendix. 4. Chronic obstructive pulmonary disease. 5. Hypertension. 6. Mild renal insufficiency. Plan monitor H&H surgical f/u antibiotics repeat CT,possible anastomotic leak, Consultation Date/Type/Reason Admit Date/Time Sep 19, 2016 at 22:10 Type of Consultation: Pulmonary Referring Provider: YAMILE LARA MD 24 HR Interval Summary Free Text/Dictation pt feels much better one BM last nite,black in color,no BM today Constitutional: improved Exam/Review of Systems Vital Signs Vitals Vital Signs Date Time Temp Pulse Resp B/P Pulse Ox O2 Delivery O2 Flow Rate FiO2 10/05/16 08:47 90 10/05/16 07:04 98.3 20 162/77 94 10/04/16 22:34 2.0 10/04/16 20:00 Nasal Cannula Intake and Output 10/04/16 10/04/16 10/05/16 15:00 23:00 07:00 Intake Total 300 ml 600 ml 450 ml Output Total 0 ml 2450 ml 850 ml Balance 300 ml -1850 ml -400 ml Exam Constitutional: alert, oriented, well developed Psych: nl mood/affect, no complaints Head: atraumatic, normocephalic Eyes: EOMI, PERRL, nl conjunctiva, nl lids, nl sclera ENMT: nl external ears & nose, nl lips & teeth, nl nasal mucosa & septum Neck: non-tender, supple Respiratory: clear to auscultation, normal air movement Cardiovascular: nl pulses, regular rate and rhythm Gastrointestinal: nl liver, spleen, non-tender, soft Musculoskeletal: nl extremities to inspection, nl gait and stance Extremities: normal pulses Neurological: ONLINE [employer]ER II-XII intact, nl mental status, nl speech, nl strength Skin: nl turgor, No rash or lesions Lymph: nl lymph nodes Results Result Diagram: 10/05/16 1000 10/05/16 1000 Results 24 hrs Laboratory Tests Test 10/05/16 10:00 Anion Gap 11 Basophils # 0.0 Basophils % 0.3 Blood Urea Nitrogen 9 Calcium Level 7.5 L Carbon Dioxide Level 26 Chloride Level 106 Creatinine 1.03 H Eosinophils # 0.2 Eosinophils % 1.1 Glucose Level 114 Hematocrit 29.7 #L Hemoglobin 10.0 #L Lymphocytes # 1.1 Lymphocytes % 7.2 L Magnesium Level 1.3 L Mean Corpuscular Hemoglobin 29.2 Mean Corpuscular Hemoglobin Concent 33.7 Mean Corpuscular Volume 86.6 Mean Platelet Volume 9.1 Monocytes # 1.4 H Monocytes % 9.0 Neutrophils # 12.2 H Neutrophils % 81.9 H Nucleated Red Blood Cells # 0.0 Nucleated Red Blood Cells % 0.0 Phosphorus Level 3.1 Platelet Count 350 Potassium Level 3.5 Red Blood Count 3.43 #L Red Cell Distribution Width 15.1 H Sodium Level 139 White Blood Count 14.9 H Medications Medications Current Medications Salmeterol Xinafoate/ Fluticasone (Advair 250/50 Diskus) 1 inh BID INH Last administered on 10/05/16 09:11; Admin Dose 1 INH; Start 09/20/16 at 09:00 Tiotropium [place] (Spiriva) 1 inh DAILY INH Last administered on 10/04/16 09: 18; Admin Dose 1 INH; Start 09/20/16 at 09:00 Dorzolamide/ Timolol (Cosopt) 1 drop BID LEFT EYE Last administered on 09:11; Admin Dose 1 DROP; Start 09/20/16 at 13:30 Latanoprost (Xalatan) 1 drop DAILY LEFT EYE Last administered on 10/03/16 09: 00; Admin Dose 1 DROP; Start 09/20/16 at 13:30 IV Flush (NS 10 ml) 10 ml PRN PRN IV IV PROTOCOL; Start 09/21/16 at 17:30 Acetaminophen (Tylenol Liquid) 650 mg Q6H PRN NGT PAIN AND OR ELEVATED TEMP Last administered on 10/02/16 23:17; Admin Dose 650 MG; Start 09/22/16 at 00:20 Hydralazine HCl (Apresoline) 10 mg Q6H PRN IV for sbp>160 Last administered on 10/04/16 18:30; Admin Dose 10 MG; Start 09/27/16 at 08:00 Pantoprazole (Protonix Iv) 40 mg BID@06,18 IV Last administered on 10/05/16 06: 36; Admin Dose 40 MG; Start 09/30/16 at 06:00 Morphine Sulfate (morphine) 2 mg Q2H PRN IV pain Last administered on 10/05/16 07:43; Admin Dose 2 MG; Start 09/29/16 at 20:30 Sertraline HCl (Zoloft) 100 mg HS PO Last administered on 10/04/16 22:07; Admin Dose 100 MG; Start 09/29/16 at 23:30 Ondansetron HCl 4 mg 4 mg Q6H PRN IV NAUSEA AND/OR VOMITING Last administered on 10/05/16 07:48; Admin Dose 4 MG; Start 09/30/16 at 04:00 Potassium Chloride/Dextrose/ Sod Cl (D5-1/2ns + KCl 20 Meq) 1,000 ml @ 75 mls/ hr [id number] IV Last administered on 10/04/16 22:00; Admin Dose 75 MLS/HR; Start 10/01/16 at 14:00 Ascorbic Acid (Vitamin C) 500 mg DAILY NGT Last administered on 10/05/16 09:11 ; Admin Dose 500 MG; Start 10/02/16 at 09:00 Ferrous Sulfate 325 mg 325 mg DAILY PO Last administered on 10/05/16 09:11; Admin Dose 325 MG; Start 10/01/16 at 17:25 Caspofungin 50 mg/ Sodium Chloride 250 ml @ 250 mls/hr Q24H IVPB Last administered on 10/04/16 22:06; Admin Dose 250 MLS/HR; Start 10/02/16 at 21:00 Ciprofloxacin/ Dextrose 200 ml @ 200 mls/hr Q12 IVPB Last administered on 09:12; Admin Dose 200 MLS/HR; Start 10/01/16 at 21:00 Metronidazole (Flagyl 500 Mg (Pmx)) 100 ml @ 100 mls/hr Q8 IVPB Last administered on 10/05/16 06:36; Admin Dose 100 MLS/HR; Start 10/01/16 at 22:00 Guaifenesin (Mucinex) 600 mg Q12 PO Last administered on 3/2/17at 09:11; Admin Dose 600 MG; Start 10/01/16 at 21:30 Acetaminophen/ Hydrocodone Bitart 1 tab 1 tab Q6H PRN PO PAIN Last administered on 10/04/16t 19:21; Admin Dose 1 TAB; Start 10/02/16 at 05:30 Total Parenteral Nutrition (Tpn) 1,000 ml @ 40 mls/hr Q24H IV ; Start 10/04/16 at 16:00 Lorazepam 0.5 mg 0.5 mg Q8H PRN IV ANXIETY; Start 10/04/16 at 12:30 Magnesium Sulfate (Magnesium Sulfate 4 Gm/100 ml) 100 ml @ 25 mls/hr ONCE ONCE IVPB ; Start 10/05/16 at 12:00; Stop 10/05/16 at 15:59 Megestrol Acetate (Megace Susp) 800 mg DAILY PO ; Start 10/05/16 at 11:30 MICHELE MIRELES MD Oct 05, 2016 11:20
[2016-10-05] MEDS: MEGESTROL (40 MG/ML) 10ML CUP PO SCH (11:41)
[2016-10-05] MEDS ORDERED: MAGNESIUM SULFATE 4 GM/100 ML 100 ML IVPB ONE (12:00)
--- NOTE | 2016-10-05 12:34 | PN ---
DATE: 10/05/2016 SUBJECTIVE: No events overnight. No fevers. The patient is sleeping, lying comfortably in bed. LABORATORY DATA: WBC today 14.9, H and H 10.0 and 29.7, platelets 315, neutrophils 81.9. BUN 9, creatinine 1.03. ANTIMICROBIALS: She is on: 1. Cancidas. 2. Cipro. 3. Flagyl. INDWELLINGS: PICC line placed on 09/21/2016 right lower quadrant, upper quadrant abdominal drainage catheter. PHYSICAL EXAMINATION: GENERAL: This is a fragile, well-developed, elderly woman who is lying comfortably in bed. HEENT: Head atraumatic, normocephalic. Sclerae anicteric. Buccal mucosa dry. NECK: Supple. CHEST: Rise symmetrical. Breath sounds diminished to bases. HEART: S1, S2. ABDOMEN: Soft, bowel tones present. EXTREMITIES: Without cyanosis. ASSESSMENT: 1. Systemic inflammatory response syndrome with persistent leukocytosis, multifactorial. 2. Multiple intraabdominal abscesses, status post CT-guided drainage on 2016. 3. Status post small bowel resection, abscess drainage with exploratory laparotomy on 09/20/2016. 4. Bilateral pleural effusion, status post thoracentesis on 10/04/2016. No cultures available. 5. Acute anemia, gastroenterology on case. Bleeding scan had been negative, EGD was negative. 6. Acute on chronic kidney disease. PLAN: The patient remains stable, covered with appropriate antimicrobials, pending pleural fluid cultures. She is being followed by surgery. Dictated By: YASMANY BECERRA DIRECTOR OF CATEGORY MANAGEMENT for [employer]/VU Conf#: [id number] DID#: [id number] MTDD
[2016-10-05] MEDS ORDERED: ALTEPLASE (CATHFLO) 2 MG INJ CATHETER PRN (13:00)
--- NOTE | 2016-10-05 13:25 | CONS ---
Date/Time of Note Date/Time of Note DATE: 10/05/16 TIME: 13:23 Assessment/Plan Assessment/Plan Additional Assessment/Plan Small bowel obstruction with abdominal abscess status post repeat surgery Recent shock Acute blood loss anemia Diastolic congestive heart failure Acute appendicitis status post surgery Preserved ejection fraction Hypertension Acute kidney injury. Pleural effusion status post thoracentesis -Patient status post thoracentesis yesterday. Respiratory status has improved. Hemoglobin is better. Would continue maintenance diuretics as long as blood pressure and renal function permits. Blood pressure on the higher side, will start low dose Norvasc Consultation Date/Type/Reason Admit Date/Time Sep 19, 2016 at 22:10 Type of Consultation: cv Referring Provider: YAMILE LARA MD 24 HR Interval Summary Free Text/Dictation Feeling much better today, less shortness of breath, more energy, denies chest pain Exam/Review of Systems Vital Signs Vitals Vital Signs Date Time Temp Pulse Resp B/P Pulse Ox O2 Delivery O2 Flow Rate FiO2 10/05/16 08:47 90 10/05/16 07:04 98.3 20 162/77 94 10/04/16 22:34 2.0 10/04/16 20:00 Nasal Cannula Intake and Output 10/04/16 10/04/16 10/05/16 15:00 23:00 07:00 Intake Total 300 ml 600 ml 450 ml Output Total 0 ml 2450 ml 850 ml Balance 300 ml -1850 ml -400 ml Exam Constitutional: alert, oriented, other (No apparent distress) Head: normocephalic Neck: supple Respiratory: other (Coarse breath sounds bilaterally, no wheezing) Cardiovascular: other (S1-S2 heard), regular rate and rhythm Gastrointestinal: bowel sounds, other (Mild discomfort with palpation, no guarding), soft Extremities: edema Results Result Diagram: 10/05/16 1000 10/05/16 1000 Results 24 hrs Laboratory Tests Test 10/05/16 10:00 Anion Gap 11 Basophils # 0.0 Basophils % 0.3 Blood Urea Nitrogen 9 Calcium Level 7.5 L Carbon Dioxide Level 26 Chloride Level 106 Creatinine 1.03 H Eosinophils # 0.2 Eosinophils % 1.1 Glucose Level 114 Hematocrit 29.7 #L Hemoglobin 10.0 #L Lymphocytes # 1.1 Lymphocytes % 7.2 L Magnesium Level 1.3 L Mean Corpuscular Hemoglobin 29.2 Mean Corpuscular Hemoglobin Concent 33.7 Mean Corpuscular Volume 86.6 Mean Platelet Volume 9.1 Monocytes # 1.4 H Monocytes % 9.0 Neutrophils # 12.2 H Neutrophils % 81.9 H Nucleated Red Blood Cells # 0.0 Nucleated Red Blood Cells % 0.0 Phosphorus Level 3.1 Platelet Count 350 Potassium Level 3.5 Red Blood Count 3.43 #L Red Cell Distribution Width 15.1 H Sodium Level 139 White Blood Count 14.9 H Medications Medications Current Medications Salmeterol Xinafoate/ Fluticasone (Advair 250/50 Diskus) 1 inh BID INH Last administered on 10/05/16 09:11; Admin Dose 1 INH; Start 09/20/16 at 09:00 Tiotropium [place] (Spiriva) 1 inh DAILY INH Last administered on 10/04/16 09: 18; Admin Dose 1 INH; Start 09/20/16 at 09:00 Dorzolamide/ Timolol (Cosopt) 1 drop BID LEFT EYE Last administered on 09:11; Admin Dose 1 DROP; Start 09/20/16 at 13:30 Latanoprost (Xalatan) 1 drop DAILY LEFT EYE Last administered on 10/03/16 09: 00; Admin Dose 1 DROP; Start 09/20/16 at 13:30 IV Flush (NS 10 ml) 10 ml PRN PRN IV IV PROTOCOL; Start 09/21/16 at 17:30 Acetaminophen (Tylenol Liquid) 650 mg Q6H PRN NGT PAIN AND OR ELEVATED TEMP Last administered on 10/02/16 23:17; Admin Dose 650 MG; Start 09/22/16 at 00:20 Hydralazine HCl (Apresoline) 10 mg Q6H PRN IV for sbp>160 Last administered on 10/04/16 18:30; Admin Dose 10 MG; Start 09/27/16 at 08:00 Pantoprazole (Protonix Iv) 40 mg BID@18 IV Last administered on 10/05/16 06: 36; Admin Dose 40 MG; Start 09/30/16 at 06:00 Morphine Sulfate (morphine) 2 mg Q2H PRN IV pain Last administered on 10/05/16 07:43; Admin Dose 2 MG; Start 09/29/16 at 20:30 Sertraline HCl (Zoloft) 100 mg HS PO Last administered on 10/04/16 22:07; Admin Dose 100 MG; Start 09/29/16 at 23:30 Ondansetron HCl 4 mg 4 mg Q6H PRN IV NAUSEA AND/OR VOMITING Last administered on 10/05/16 07:48; Admin Dose 4 MG; Start 09/30/16 at 04:00 Potassium Chloride/Dextrose/ Sod Cl (D5-1/2ns + KCl 20 Meq) 1,000 ml @ 75 mls/ hr [id number] IV Last administered on 10/04/16 22:00; Admin Dose 75 MLS/HR; Start 10/01/16 at 14:00 Ascorbic Acid (Vitamin C) 500 mg DAILY NGT Last administered on 10/05/16 09:11 ; Admin Dose 500 MG; Start 10/02/16 at 09:00 Ferrous Sulfate 325 mg 325 mg DAILY PO Last administered on 10/05/16 09:11; Admin Dose 325 MG; Start 10/01/16 at 17:25 Caspofungin 50 mg/ Sodium Chloride 250 ml @ 250 mls/hr Q24H IVPB Last administered on 10/04/16 22:06; Admin Dose 250 MLS/HR; Start 10/02/16 at 21:00 Ciprofloxacin/ Dextrose 200 ml @ 200 mls/hr Q12 IVPB Last administered on 09:12; Admin Dose 200 MLS/HR; Start 10/01/16 at 21:00 Metronidazole (Flagyl 500 Mg (Pmx)) 100 ml @ 100 mls/hr Q8 IVPB Last administered on 10/05/16 06:36; Admin Dose 100 MLS/HR; Start 10/01/16 at 22:00 Guaifenesin (Mucinex) 600 mg Q12 PO Last administered on 10/05/16 09:11; Admin Dose 600 MG; Start 10/01/16 at 21:30 Acetaminophen/ Hydrocodone Bitart 1 tab 1 tab Q6H PRN PO PAIN Last administered on 10/04/16 19:21; Admin Dose 1 TAB; Start 10/02/16 at 05:30 Total Parenteral Nutrition (Tpn) 1,000 ml @ 40 mls/hr Q24H IV ; Start 10/04/16 at 16:00 Lorazepam 0.5 mg 0.5 mg Q8H PRN IV ANXIETY; Start 10/04/16 at 12:30 Magnesium Sulfate (Magnesium Sulfate 4 Gm/100 ml) 100 ml @ 25 mls/hr ONCE ONCE IVPB Last administered on 10/05/16 11:40; Admin Dose 25 MLS/HR; Start 10/05 at 12:00; Stop 10/05/16 at 15:59 Megestrol Acetate (Megace Susp) 800 mg DAILY PO Last administered on 10/05/16 11:41; Admin Dose 800 MG; Start 10/05/16 at 11:30 Taco Castillo DO Oct 05, 2016 13:25
[2016-10-05] MEDS ORDERED: FUROSEMIDE 20 MG INJ IV ONE (13:30)
--- NOTE | 2016-10-05 15:26 | PN ---
Date/Time of Note Date/Time of Note DATE: 10/05/16 TIME: 15:22 Assessment/Plan VTE Prophylaxis VTE Prophylaxis Intervention: SCD's Assessment/Plan Chief Complaint/Hosp Course 1. Small bowel obstruction s/p Recent Laproscopic Appendectomy Status post small bowel resection x2. Continue postsurgical care, pain management and IV antibiotics Diet as per general surgery recommendations, restarted TPN secondary to low appetite, Megace started, encourage a PO diet Abdominal x-ray negative for obstruction 2. Sepsis Likely secondary to intra-abdominal abscess and postoperatively infectious disease doctor has been consulted, continue Zosyn and Flagyl Follow-up blood culture, continue aggressive IV fluids 3. Hyperkalemia Resolved status post IV fluid, nephrology has been consulted, follow-up electrolytes in a.m. 4 . Abdominal abscess x3 possibly 2/2 anastomotic leak as noted on recent CT Abd Status post drainage by interventional radiologist and Diagnostic laparoscopy, Exploratory laparotomy and abdominal washout. Status post CT-guided drainage by interventional radiologist 09/28/2016 , continue aggressive IV antibiotics CT Abd on 10/03 shows resolving abscess in the RLQ but persistent abscesses elsewhere that are mildly improved, at this point there are no plans for further CT guided drainage Surgery aware of leak 3. COPD 4. Essential hypertension, stable 5. Acute anemia 2/2 Anemia of Chronic Dz vs slow GI bleed possibly from anastomotic leak Status post colonoscopy and endoscopy that showed no source of bleeding Negative bleeding scan 6. Pleural effusion, start Lasix, continue IV antibiotics, pulmonology following s/p Thoracentesis Pt reports feeling better 7. Acute renal insufficiency, likely secondary to dehydration versus anemia, follow-up renal panel in a.m. nephrology following-stable 8. Hypothyroidism PPx- SCD's Problems: Subjective 24 Hr Interval Summary Constitutional: no complaints Exam/Review of Systems Vital Signs Vitals Vital Signs Date Time Temp Pulse Resp B/P Pulse Ox O2 Delivery O2 Flow Rate FiO2 10/05/16 14:20 Nasal Cannula 2.0 10/05/16 13:49 98.7 83 20 158/74 93 Intake and Output 10/04/16 10/04/16 10/05/16 15:00 23:00 07:00 Intake Total 300 ml 600 ml 450 ml Output Total 0 ml 2450 ml 850 ml Balance 300 ml -1850 ml -400 ml Exam Constitutional: alert, oriented Respiratory: clear to auscultation Cardiovascular: regular rate and rhythm Gastrointestinal: soft, No distended Musculoskeletal: nl extremities to inspection Results Result Diagram: 10/05/16 1000 10/05/16 1000 Results 24 hrs Laboratory Tests Test 10/05/16 10:00 Anion Gap 11 Basophils # 0.0 Basophils % 0.3 Blood Urea Nitrogen 9 Calcium Level 7.5 L Carbon Dioxide Level 26 Chloride Level 106 Creatinine 1.03 H Eosinophils # 0.2 Eosinophils % 1.1 Glucose Level 114 Hematocrit 29.7 #L Hemoglobin 10.0 #L Lymphocytes # 1.1 Lymphocytes % 7.2 L Magnesium Level 1.3 L Mean Corpuscular Hemoglobin 29.2 Mean Corpuscular Hemoglobin Concent 33.7 Mean Corpuscular Volume 86.6 Mean Platelet Volume 9.1 Monocytes # 1.4 H Monocytes % 9.0 Neutrophils # 12.2 H Neutrophils % 81.9 H Nucleated Red Blood Cells # 0.0 Nucleated Red Blood Cells % 0.0 Phosphorus Level 3.1 Platelet Count 350 Potassium Level 3.5 Red Blood Count 3.43 #L Red Cell Distribution Width 15.1 H Sodium Level 139 White Blood Count 14.9 H Medications Medications Current Medications Salmeterol Xinafoate/ Fluticasone (Advair 250/50 Diskus) 1 inh BID INH Last administered on 10/05/16 09:11; Admin Dose 1 INH; Start 09/20/16 at 09:00 Tiotropium [place] (Spiriva) 1 inh DAILY INH Last administered on 10/04/16 09: 18; Admin Dose 1 INH; Start 09/20/16 at 09:00 Dorzolamide/ Timolol (Cosopt) 1 drop BID LEFT EYE Last administered on 09:11; Admin Dose 1 DROP; Start 09/20/16 at 13:30 Latanoprost (Xalatan) 1 drop DAILY LEFT EYE Last administered on 10/03/16 09: 00; Admin Dose 1 DROP; Start 09/20/16 at 13:30 IV Flush (NS 10 ml) 10 ml PRN PRN IV IV PROTOCOL; Start 09/21/16 at 17:30 Acetaminophen (Tylenol Liquid) 650 mg Q6H PRN NGT PAIN AND OR ELEVATED TEMP Last administered on 10/02/16 23:17; Admin Dose 650 MG; Start 09/22/16 at 00:20 Hydralazine HCl (Apresoline) 10 mg Q6H PRN IV for sbp>160 Last administered on 10/04/16 18:30; Admin Dose 10 MG; Start 09/27/16 at 08:00 Pantoprazole (Protonix Iv) 40 mg BID@06,18 IV Last administered on 10/05/16 06: 36; Admin Dose 40 MG; Start 09/30/16 at 06:00 Morphine Sulfate (morphine) 2 mg Q2H PRN IV pain Last administered on 10/05/16 07:43; Admin Dose 2 MG; Start 09/29/16 at 20:30 Sertraline HCl (Zoloft) 100 mg HS PO Last administered on 10/04/16 22:07; Admin Dose 100 MG; Start 09/29/16 at 23:30 Ondansetron HCl 4 mg 4 mg Q6H PRN IV NAUSEA AND/OR VOMITING Last administered on 10/05/16 07:48; Admin Dose 4 MG; Start 09/30/16 at 04:00 Potassium Chloride/Dextrose/ Sod Cl (D5-1/2ns + KCl 20 Meq) 1,000 ml @ 75 mls/ hr [id number] IV Last administered on 10/04/16 22:00; Admin Dose 75 MLS/HR; Start 10/01/16 at 14:00 Ascorbic Acid (Vitamin C) 500 mg DAILY NGT Last administered on 10/05/16 09:11 ; Admin Dose 500 MG; Start 10/02/16 at 09:00 Ferrous Sulfate 325 mg 325 mg DAILY PO Last administered on 10/05/16 09:11; Admin Dose 325 MG; Start 10/01/16 at 17:25 Caspofungin 50 mg/ Sodium Chloride 250 ml @ 250 mls/hr Q24H IVPB Last administered on 10/04/16 22:06; Admin Dose 250 MLS/HR; Start 10/02/16 at 21:00 Ciprofloxacin/ Dextrose 200 ml @ 200 mls/hr Q12 IVPB Last administered on 09:12; Admin Dose 200 MLS/HR; Start 10/01/16 at 21:00 Metronidazole (Flagyl 500 Mg (Pmx)) 100 ml @ 100 mls/hr Q8 IVPB Last administered on 10/05/16 14:39; Admin Dose 100 MLS/HR; Start 10/01/16 at 22:00 Guaifenesin (Mucinex) 600 mg Q12 PO Last administered on 10/05/16 09:11; Admin Dose 600 MG; Start 10/01/16 at 21:30 Acetaminophen/ Hydrocodone Bitart 1 tab 1 tab Q6H PRN PO PAIN Last administered on 10/04/16 19:21; Admin Dose 1 TAB; Start 10/02/16 at 05:30 Total Parenteral Nutrition (Tpn) 1,000 ml @ 40 mls/hr Q24H IV ; Start 10/04/16 at 16:00 Lorazepam 0.5 mg 0.5 mg Q8H PRN IV ANXIETY; Start 10/04/16 at 12:30 Magnesium Sulfate (Magnesium Sulfate 4 Gm/100 ml) 100 ml @ 25 mls/hr ONCE ONCE IVPB Last administered on 10/05/16 11:40; Admin Dose 25 MLS/HR; Start 10/05 at 12:00; Stop 10/05/16 at 15:59 Megestrol Acetate (Megace Susp) 800 mg DAILY PO Last administered on 10/05/16 11:41; Admin Dose 800 MG; Start 10/05/16 at 11:30 Furosemide (Lasix) 20 mg DAILY PO ; Start 10/06/16 at 09:00 Amlodipine Besylate (Norvasc) 2.5 mg DAILY PO ; Start 10/06/16 at 09:00 ELIZA DUNNE Oct 05, 2016 15:26
[2016-10-05] MEDS: TPN 1,000 ML IV SCH (16:22)
[2016-10-05] MEDS: ALBUTEROL/IPRATROPIUM (NEB) 3 ML AMP HHN PRN (18:37)
[2016-10-05] MEDS: SERTRALINE 100 MG TAB PO SCH (20:45)
[2016-10-05] MEDS: CASPOFUNGIN 50 MG in SOD CHLORIDE 0.9% 250 ML IVPB SCH (21:40)
--- NOTE | 2016-10-06 01:33 | PN ---
DATE: 10/05/2016 SUBJECTIVE: Ms. Aguila is postoperative day 16 from a laparoscopic appendectomy and small bowel r esection. The patient is feeling much better. Her bowel movements have slowed down. She is tolera ting p.o. PHYSICAL EXAMINATION: VITAL SIGNS: She is afebrile. Vital signs stable. Her urine output is over 2 liters. ABDOMEN: Soft, nontender, nondistended. Her wound is clean, dry, and intact. LABORATORY DATA: Reveal a white count of ____, hematocrit of 38, and platelets of 350. Sodium is 1 39, potassium 3.5, chloride 106, CO2 of 26, BUN and creatinine 9 and ____, and glucose 114. ASSESSMENT AND PLAN: Ms. Aguila is postoperative day 16 from a small bowel resection. 1. Ileus has resolved. Will start regular diet and discontinue TPN tomorrow. 2. She is hemodynamically stable with a stable hematocrit. 3. White count coming down appreciably. Recommend changing from IV to p.o. antibiotics. Dictated By: TRISTAN DHALIWAL MD MAL/NTS Conf#: [id number] DID#: [id number] CC: LISA ENGLISH MD;*EndCC*
[2016-10-06] MEDS: HYDROCODONE/APAP (5/325) TAB PO PRN ×3 (03:14→14:16)
[2016-10-06] MEDS: PANTOPRAZOLE 40 MG INJ IV SCH ×2 (05:20→17:32)
[2016-10-06] MEDS: metroNIDAZOLE 500 MG/NS (PMX) 100 ML IVPB SCH ×2 (05:21→14:16)
[2016-10-06 06:12] LABS: ADD SCAN DIFF NO
[2016-10-06 06:22] LABS: BASOPHILS % 0.2 % (0.0-2.0); EOSINOPHILS # 0.2 10^3/ul (0.0-0.5); EOSINOPHILS % 1.4 % (0.0-7.0); HEMOGLOBIN 9.5 g/dl (12.0-16.0); LYMPHOCYTES # 1.1 10^3/ul (0.8-2.9); LYMPHOCYTES % 8.1 % (15.0-51.0); MEAN CORPUSCULAR HGB CONC 32.8 g/dl (32.0-37.0); MEAN CORPUSCULAR VOLUME 88.4 fl (82.0-101.0); MEAN PLATELET VOLUME 9.2 fl (7.4-10.4); MONOCYTES % 7.8 % (0.0-11.0); NEUTROPHIL # 10.7 10^3/ul (1.6-7.5); NEUTROPHILS % 81.8 % (39.0-77.0); PLATELET COUNT 346 10^3/UL (140-415); RED BLOOD COUNT 3.28 10^6/ul (4.20-5.40); RED CELL DISTRIBUTION WIDTH 15.3 % (11.5-14.5); WHITE BLOOD COUNT 13.1 10^3/ul (4.8-10.8)
[2016-10-06 06:53] LABS: POTASSIUM 3.2 mmol/L (3.5-5.1)
[2016-10-06 06:56] LABS: CREATININE 0.94 mg/dl (0.44-1.00)
[2016-10-06 06:57] LABS: CALCIUM 7.4 mg/dl (8.4-10.2); PHOSPHORUS 2.5 mg/dl (2.5-4.9)
[2016-10-06 07:56] VITALS: BP 162/76; RESP 20
[2016-10-06] MEDS: MEGESTROL (40 MG/ML) 10ML CUP PO SCH (08:41)
[2016-10-06] MEDS: GUAIFENESIN LA 600 MG TABSR PO SCH ×2 (08:42→22:51)
[2016-10-06] MEDS: ASCORBIC ACID 500 MG TAB NGT SCH (08:42)
[2016-10-06] MEDS: FERROUS SULFATE (EC) 325 MG TAB PO SCH (08:42)
[2016-10-06] MEDS: ACETAMINOPHEN 650MG/20.3ML CUP NGT PRN (08:43)
[2016-10-06] MEDS: CIPROFLOXACIN 400MG/D5W 200 ML IVPB SCH ×2 (08:43→21:06)
[2016-10-06] MEDS: DORZOLAMIDE/TIMOLOL 10 ML OPH LEFT EYE SCH ×2 (08:43→22:51)
[2016-10-06] MEDS: TIOTROPIUM 18 MCG CAPSULE INHA DEV INH SCH (08:43)
[2016-10-06] MEDS: SALMETEROL/FLUTICASONE 250/50 INHA INH SCH ×2 (08:43→22:51)
[2016-10-06] MEDS ORDERED: AMLODIPINE 2.5 MG TAB PO SCH (09:00)
[2016-10-06] MEDS: LATANOPROST 0.005% 2.5 ML OPH LEFT EYE SCH (09:00)
[2016-10-06] MEDS ORDERED: FUROSEMIDE 20 MG TAB PO SCH (09:00)
--- NOTE | 2016-10-06 11:18 | CONS ---
Date/Time of Note Date/Time of Note DATE: 10/06/16 TIME: 11:17 Assessment/Plan Assessment/Plan Additional Assessment/Plan Additional Assessment/Plan IMPRESSION: 1. Gastrointestinal bleeding.bleeding scan negative,EGD negative,bleeding seems to have stopped 2. Multiple pelvic abscesses, status post drain.draining seropurulent liquid 3. Status post surgery for small-bowel obstruction, and also laparoscopic removal of the appendix. 4. Chronic obstructive pulmonary disease. 5. Hypertension. 6. Mild renal insufficiency. 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 Constitutional: improved Exam/Review of Systems Vital Signs Vitals Vital Signs Date Time Temp Pulse Resp B/P Pulse Ox O2 Delivery O2 Flow Rate FiO2 10/06/16 07:56 98.2 90 20 162/76 93 10/06/16 00:02 2.0 10/05/16 20:15 Nasal Cannula Intake and Output 10/05/16 10/05/16 10/06/16 15:00 23:00 07:00 Intake Total 1020 ml 580 ml Output Total 2310 ml Balance -1290 ml 580 ml Exam Constitutional: alert, oriented, well developed Psych: nl mood/affect, no complaints Head: atraumatic, normocephalic Eyes: EOMI, PERRL, nl conjunctiva, nl lids, nl sclera ENMT: nl external ears & nose, nl lips & teeth, nl nasal mucosa & septum Neck: non-tender, supple Respiratory: clear to auscultation, normal air movement Cardiovascular: nl pulses, regular rate and rhythm Gastrointestinal: nl liver, spleen, non-tender, soft Musculoskeletal: nl extremities to inspection, nl gait and stance Extremities: normal pulses Neurological: ADMINISTRATIVE LIAISON II-XII intact, nl mental status, nl speech, nl strength Skin: nl turgor, No rash or lesions Lymph: nl lymph nodes Results Result Diagram: 10/06/16 0535 10/06/16 0535 Results 24 hrs Laboratory Tests Test 10/06/16 05:35 Anion Gap 9 Basophils # 0.0 Basophils % 0.2 Blood Urea Nitrogen 9 Calcium Level 7.4 L Carbon Dioxide Level 28 Chloride Level 102 Creatinine 0.94 Eosinophils # 0.2 Eosinophils % 1.4 Glucose Level 125 Hematocrit 29.0 L Hemoglobin 9.5 L Lymphocytes # 1.1 Lymphocytes % 8.1 L Magnesium Level 2.0 Mean Corpuscular Hemoglobin 29.0 Mean Corpuscular Hemoglobin Concent 32.8 Mean Corpuscular Volume 88.4 Mean Platelet Volume 9.2 Monocytes # 1.0 H Monocytes % 7.8 Neutrophils # 10.7 H Neutrophils % 81.8 H Nucleated Red Blood Cells # 0.0 Nucleated Red Blood Cells % 0.0 Phosphorus Level 2.5 Platelet Count 346 Potassium Level 3.2 L Prealbumin 10.8 L Red Blood Count 3.28 L Red Cell Distribution Width 15.3 H Sodium Level 136 White Blood Count 13.1 H Medications Medications Current Medications Salmeterol Xinafoate/ Fluticasone (Advair 250/50 Diskus) 1 inh BID INH Last administered on 10/06/16 08:43; Admin Dose 1 INH; Start 09/20/16 at 09:00 Tiotropium [place] (Spiriva) 1 inh DAILY INH Last administered on 10/06/16 08: 43; Admin Dose 1 INH; Start 09/20/16 at 09:00 Dorzolamide/ Timolol (Cosopt) 1 drop BID LEFT EYE Last administered on 08:43; Admin Dose 1 DROP; Start 09/20/16 at 13:30 Latanoprost (Xalatan) 1 drop DAILY LEFT EYE Last administered on 10/03/16 09: 00; Admin Dose 1 DROP; Start 09/20/16 at 13:30 IV Flush (NS 10 ml) 10 ml PRN PRN IV IV PROTOCOL; Start 09/21/16 at 17:30 Acetaminophen (Tylenol Liquid) 650 mg Q6H PRN NGT PAIN AND OR ELEVATED TEMP Last administered on 10/06/16 08:43; Admin Dose 650 MG; Start 09/22/16 at 00:20 Hydralazine HCl (Apresoline) 10 mg Q6H PRN IV for sbp>160 Last administered on 10/04/16 18:30; Admin Dose 10 MG; Start 09/27/16 at 08:00 Pantoprazole (Protonix Iv) 40 mg BID@06,18 IV Last administered on 10/06/16 05: 20; Admin Dose 40 MG; Start 09/30/16 at 06:00 Morphine Sulfate (morphine) 2 mg Q2H PRN IV pain Last administered on 10/05/16 07:43; Admin Dose 2 MG; Start 09/29/16 at 20:30 Sertraline HCl (Zoloft) 100 mg HS PO Last administered on 10/05/16 20:45; Admin Dose 100 MG; Start 09/29/16 at 23:30 Ondansetron HCl (Zofran Inj) 4 mg Q6H PRN IV NAUSEA AND/OR VOMITING Last administered on 10/05/16 07:48; Admin Dose 4 MG; Start 09/30/16 at 04:00 Ascorbic Acid (Vitamin C) 500 mg DAILY NGT Last administered on 10/06/16 08:42 ; Admin Dose 500 MG; Start 10/02/16 at 09:00 Ferrous Sulfate 325 mg 325 mg DAILY PO Last administered on 10/06/16 08:42; Admin Dose 325 MG; Start 10/01/16 at 17:25 Caspofungin 50 mg/ Sodium Chloride 250 ml @ 250 mls/hr Q24H IVPB Last administered on 10/05/16 21:40; Admin Dose 250 MLS/HR; Start 10/02/16 at 21:00 Ciprofloxacin/ Dextrose 200 ml @ 200 mls/hr Q12 IVPB Last administered on 08:43; Admin Dose 200 MLS/HR; Start 10/01/16 at 21:00 Metronidazole (Flagyl 500 Mg (Pmx)) 100 ml @ 100 mls/hr Q8 IVPB Last administered on 10/06/16 05:21; Admin Dose 100 MLS/HR; Start 10/01/16 at 22:00 Guaifenesin (Mucinex) 600 mg Q12 PO Last administered on 10/06/16 08:42; Admin Dose 600 MG; Start 10/01/16 at 21:30 Acetaminophen/ Hydrocodone Bitart ([place] (5/325)) 1 tab Q6H PRN PO PAIN Last administered on 10/06/16 08:41; Admin Dose 1 TAB; Start 10/02/16 at 05:30 Lorazepam (Ativan) 0.5 mg Q8H PRN IV ANXIETY; Start 10/04/16 at 12:30 Megestrol Acetate (Megace Susp) 800 mg DAILY PO Last administered on 10/06/16 08:41; Admin Dose 800 MG; Start 10/05/16 at 11:30 Furosemide (Lasix) 20 mg DAILY PO Last administered on 10/06/16 08:42; Admin Dose 20 MG; Start 10/06/16 at 09:00 Amlodipine Besylate 2.5 mg 2.5 mg DAILY PO Last administered on 10/06/16 08:42 ; Admin Dose 2.5 MG; Start 10/06/16 at 09:00 Potassium Chloride/Sodium Chloride (KCl/NS) 110 ml @ 55 mls/hr ONCE ONCE IVPB ; Start 10/06/16 at 12:00; Stop 10/06/16 at 13:59 MICHELE MIRELES MD Oct 06, 2016 11:18
--- NOTE | 2016-10-06 11:19 | CONS ---
Date/Time of Note Date/Time of Note DATE: 10/06/16 TIME: 11:16 Assessment/Plan Assessment/Plan Additional Assessment/Plan Small bowel obstruction with abdominal abscess status post repeat surgery Recent shock Acute blood loss anemia Diastolic congestive heart failure Acute appendicitis status post surgery Preserved ejection fraction Hypertension Acute kidney injury. Pleural effusion status post thoracentesis -Patient's respiratory status continues to improve. Continue maintenance diuretics as blood pressure and renal function permits. Blood pressure remains elevated, with increased frequency of Norvasc. Maintain potassium above 4.0 and magnesium above 2.0. Consultation Date/Type/Reason Admit Date/Time Sep 19, 2016 at 22:10 Type of Consultation: cv Referring Provider: YAMILE LARA MD 24 HR Interval Summary Free Text/Dictation Patient denies shortness of breath, chest pain. Depressed about being in hospital Exam/Review of Systems Vital Signs Vitals Vital Signs Date Time Temp Pulse Resp B/P Pulse Ox O2 Delivery O2 Flow Rate FiO2 10/06/16 07:56 98.2 90 20 162/76 93 10/06/16 00:02 2.0 10/05/16 20:15 Nasal Cannula Intake and Output 10/05/16 10/05/16 10/06/16 15:00 23:00 07:00 Intake Total 1020 ml 580 ml Output Total 2310 ml Balance -1290 ml 580 ml Exam No apparent distress, follows commands Constitutional: alert, oriented Head: normocephalic Neck: supple Respiratory: other (Coarse breath sounds bilaterally, no wheezing, slightly decreased at the bases) Cardiovascular: other (S1-S2 heard), regular rate and rhythm Gastrointestinal: bowel sounds, other (No guarding, mild discomfort with palpation), soft Extremities: edema (Trace), other (No cyanosis) Results Result Diagram: 10/06/16 0535 10/06/16 0535 Results 24 hrs Laboratory Tests Test 10/06/16 05:35 Anion Gap 9 Basophils # 0.0 Basophils % 0.2 Blood Urea Nitrogen 9 Calcium Level 7.4 L Carbon Dioxide Level 28 Chloride Level 102 Creatinine 0.94 Eosinophils # 0.2 Eosinophils % 1.4 Glucose Level 125 Hematocrit 29.0 L Hemoglobin 9.5 L Lymphocytes # 1.1 Lymphocytes % 8.1 L Magnesium Level 2.0 Mean Corpuscular Hemoglobin 29.0 Mean Corpuscular Hemoglobin Concent 32.8 Mean Corpuscular Volume 88.4 Mean Platelet Volume 9.2 Monocytes # 1.0 H Monocytes % 7.8 Neutrophils # 10.7 H Neutrophils % 81.8 H Nucleated Red Blood Cells # 0.0 Nucleated Red Blood Cells % 0.0 Phosphorus Level 2.5 Platelet Count 346 Potassium Level 3.2 L Prealbumin 10.8 L Red Blood Count 3.28 L Red Cell Distribution Width 15.3 H Sodium Level 136 White Blood Count 13.1 H Medications Medications Current Medications Salmeterol Xinafoate/ Fluticasone (Advair 250/50 Diskus) 1 inh BID INH Last administered on 10/06/16 08:43; Admin Dose 1 INH; Start 09/20/16 at 09:00 Tiotropium [place] (Spiriva) 1 inh DAILY INH Last administered on 10/06/16 08: 43; Admin Dose 1 INH; Start 09/20/16 at 09:00 Dorzolamide/ Timolol (Cosopt) 1 drop BID LEFT EYE Last administered on 08:43; Admin Dose 1 DROP; Start 09/20/16 at 13:30 Latanoprost (Xalatan) 1 drop DAILY LEFT EYE Last administered on 10/03/16 09: 00; Admin Dose 1 DROP; Start 09/20/16 at 13:30 IV Flush (NS 10 ml) 10 ml PRN PRN IV IV PROTOCOL; Start 09/21/16 at 17:30 Acetaminophen (Tylenol Liquid) 650 mg Q6H PRN NGT PAIN AND OR ELEVATED TEMP Last administered on 10/06/16 08:43; Admin Dose 650 MG; Start 09/22/16 at 00:20 Hydralazine HCl (Apresoline) 10 mg Q6H PRN IV for sbp>160 Last administered on 10/04/16 18:30; Admin Dose 10 MG; Start 09/27/16 at 08:00 Pantoprazole (Protonix Iv) 40 mg BID@,18 IV Last administered on 10/06/16 05: 20; Admin Dose 40 MG; Start 09/30/16 at 06:00 Morphine Sulfate (morphine) 2 mg Q2H PRN IV pain Last administered on 10/05/16 07:43; Admin Dose 2 MG; Start 09/29/16 at 20:30 Sertraline HCl (Zoloft) 100 mg HS PO Last administered on 10/05/16 20:45; Admin Dose 100 MG; Start 09/29/16 at 23:30 Ondansetron HCl (Zofran Inj) 4 mg Q6H PRN IV NAUSEA AND/OR VOMITING Last administered on 10/05/16 07:48; Admin Dose 4 MG; Start 09/30/16 at 04:00 Ascorbic Acid (Vitamin C) 500 mg DAILY NGT Last administered on 10/06/16 08:42 ; Admin Dose 500 MG; Start 10/02/16 at 09:00 Ferrous Sulfate 325 mg 325 mg DAILY PO Last administered on 10/06/16 08:42; Admin Dose 325 MG; Start 10/01/16 at 17:25 Caspofungin 50 mg/ Sodium Chloride 250 ml @ 250 mls/hr Q24H IVPB Last administered on 10/05/16 21:40; Admin Dose 250 MLS/HR; Start 10/02/16 at 21:00 Ciprofloxacin/ Dextrose 200 ml @ 200 mls/hr Q12 IVPB Last administered on 08:43; Admin Dose 200 MLS/HR; Start 10/01/16 at 21:00 Metronidazole (Flagyl 500 Mg (Pmx)) 100 ml @ 100 mls/hr Q8 IVPB Last administered on 10/06/16 05:21; Admin Dose 100 MLS/HR; Start 10/01/16 at 22:00 Guaifenesin (Mucinex) 600 mg Q12 PO Last administered on 10/06/16 08:42; Admin Dose 600 MG; Start 10/01/16 at 21:30 Acetaminophen/ Hydrocodone Bitart ([place] (5/325)) 1 tab Q6H PRN PO PAIN Last administered on 10/06/16 08:41; Admin Dose 1 TAB; Start 10/02/16 at 05:30 Lorazepam (Ativan) 0.5 mg Q8H PRN IV ANXIETY; Start 10/04/16 at 12:30 Megestrol Acetate (Megace Susp) 800 mg DAILY PO Last administered on 10/06/16 08:41; Admin Dose 800 MG; Start 10/05/16 at 11:30 Furosemide (Lasix) 20 mg DAILY PO Last administered on 10/06/16 08:42; Admin Dose 20 MG; Start 10/06/16 at 09:00 Amlodipine Besylate 2.5 mg 2.5 mg DAILY PO Last administered on 10/06/16t 08:42 ; Admin Dose 2.5 MG; Start 10/06/16 at 09:00 Potassium Chloride/Sodium Chloride (KCl/NS) 110 ml @ 55 mls/hr ONCE ONCE IVPB ; Start 10/06/16 at 12:00; Stop 10/06/16 at 13:59 Taco Castillo DO Oct 06, 2016 11:18
--- NOTE | 2016-10-06 11:20 | PN ---
DATE: 10/06/2016 SUBJECTIVE: No acute changes. The patient is alert, feels better. Her right- sided intra-abdominal drainage catheter was removed and Santos was removed. She was started on diet. No fevers. LABORATORY DATA: WBC today 13.1 with platelets 346, neutrophils 81.8. ANTIMICROBIALS: The patient remains on: 1. Flagyl. 2. Cipro. 3. Cancidas. INDWELLINGS: PICC line placed on 09/21/2016. PHYSICAL EXAMINATION: GENERAL: This is a well-developed, fragile, elderly woman who is alert, in no distress. HEENT: Head atraumatic, normocephalic. Sclerae anicteric. Buccal mucosa pink. NECK: Supple, trachea midline. CHEST: Rise symmetrical. Breath sounds diminished to bases. HEART: S1, S2. ABDOMEN: Soft. Bowel sounds present. EXTREMITIES: Without cyanosis. ASSESSMENT: 1. Systemic inflammatory response syndrome with resolving leukocytosis. 2. Multiple intra-abdominal abscesses, status post exploratory laparotomy with small bowel resection and abscess drainage on 09/20/2016, and subsequently status post CT-guided drainage on 09/28/2016. 3. Bilateral pleural effusions, status post thoracentesis on 10/04/2016. 4. Anemia with bleeding scan and EGD have been negative. 5. Acute on chronic kidney disease. 6. Resolving ileus. PLAN: The patient is doing better. White blood cell count tracing down. She was started on regular diet. Dictated By: YASMANY BECERRA INJECTION WAX MOLDER for THOMAS WEBSTER/VU Conf#: [id number] DID#: [id number] [facility]
[2016-10-06] MEDS ORDERED: POTASSIUM CHLORIDE 20 MEQ POWDER FOR ORAL SOLN PO ONE (11:30)
[2016-10-06] MEDS: ALBUTEROL/IPRATROPIUM (NEB) 3 ML AMP HHN PRN (11:33)
[2016-10-06] MEDS: hydrALAzine 20 MG INJ IV PRN (11:55)
[2016-10-06] MEDS ORDERED: POTASSIUM CHLORIDE 20 MEQ in SOD CHLORIDE 0.9% 100 ML IVPB ONE (12:00)
--- NOTE | 2016-10-06 12:04 | PN ---
DATE: 10/06/2016 REASON FOR FOLLOWUP: Respiratory failure. The patient is stable this morning. PHYSICAL EXAMINATION: VITAL SIGNS: Temperature 98, pulse 90, blood pressure 160/76, O2 saturation 96% on 2 liters. NECK: Supple. No JVD or lymphadenopathy. CARDIAC: S1, S2, no added sounds or murmurs. CHEST: Diminished air entry at bases. ABDOMEN: Soft, nontender. No guarding or rebound. EXTREMITIES: No cyanosis, clubbing, edema. NEUROLOGIC: Generalized weakness. LABORATORY DATA: White count 13.1, hemoglobin 9.5, platelets 346. BUN 9, creatinine 0.94. IMPRESSION AND PLAN: 1. Multiple intraabdominal abscesses, status post laparotomy and bowel resection. 2. Pleural effusion, status post thoracentesis. 3. Resolving ileus. 4. Acute on chronic kidney disease. 5. History of diastolic dysfunction. The patient will require: 1. Continue ID recommendations. 2. Monitor for recurrence of pleural effusion. 3. GI and surgical recommendations. 4. DVT and GI prophylaxis. Dictated By: DUDLEY NEVAREZ/VU Conf#: [id number] DID#: [id number]
--- NOTE | 2016-10-06 12:26 | RADRPT ---
PROCEDURE: XR Chest. CLINICAL INDICATION: Shortness of breath TECHNIQUE: An AP view of the chest was obtained. COMPARISON: Chest x-ray dated 10/04/2016 FINDINGS: As a right upper extremity PICC line with tip in the mid SVC. There is prominence of the interstitial markings with small bilateral pleural effusions. No focal airspace opacification or pneumothorax is seen. The cardiomediastinal silhouette is mildly enlarge d . Calcifications are seen within the aortic arch. The osseous structures demonstrate senescent ch anges. IMPRESSION: 1. Findings suggestive of interstitial edema with small bilateral pleural effusions, increased on t he right when compared to the prior examination. 2. Mild cardiomegaly and aortic atherosclerosis. 3. Right upper extremity PICC line with tip in the mid SVC. RPTAT: HH .Annabel Polo MD, MD Date Time Electronically viewed and signed by .Annabel Polo MD, MD on 10/06/2016 12:26 .G/
[2016-10-06] MEDS: morphine 2 MG INJ IV PRN (12:45)
--- NOTE | 2016-10-06 12:47 | PN ---
DATE: 10/06/2016 Ms. Aguila is postoperative day postoperative day 17 from a small bowel resection SUBJECTIVE: The patient is having a lot of anxiety today. She is refusing to get out of bed. She has no appetite. She is still complaining of lower abdominal pain. She is afebrile. Vital signs s table. She has had 4 bowel movements today. She is urinating after removal of her catheter. ABDOMEN: Soft, nondistended. Her wound is clean, dry and intact. LABORATORY DATA: Today reveal white count of 13, hematocrit 29 and platelets of 346. Her sodium is 136, potassium 3.2, chloride 102, CO2 28, BUN and creatinine 9 and 0.9 and glucose of 125. ASSESSMENT AND PLAN: Ms. Aguila is a 66-year-old female status post small bowel resection. 1. Ileus has resolved. However, patient has poor p.o. intake. Her TPN was stopped yesterday. I a m not sure she needs a Dobbhoff feeding tube or possibly had a PEG. 2. Her acute renal failure has resolved 3. She is complaining of shortness breath and her chest x-ray shows increasing interstitial edema. She may benefit from Lasix. Will discuss with pulmonary. 4. She is almost ready to discharge, but she probably is unable due to her poor p.o. intake. Dictated By: TRISTAN MYLES/VU Conf#: [id number] DID#: [id number]
[2016-10-06 14:00] VITALS: BP 143/74
--- NOTE | 2016-10-06 14:39 | PN ---
Date/Time of Note Date/Time of Note DATE: 10/06/16 TIME: 14:34 Assessment/Plan VTE Prophylaxis VTE Prophylaxis Intervention: SCD's Lines/Catheters Urinary Cath still in place: No Assessment/Plan Chief Complaint/Hosp Course 1. Small bowel obstruction s/p Recent Laproscopic Appendectomy Status post small bowel resection x2. Continue postsurgical care, pain management and IV antibiotics Diet as per general surgery recommendations, restarted TPN secondary to low appetite, Megace started, encourage a PO diet Abdominal x-ray negative for obstruction 2. Sepsis-Improving 2/2 intra-abdominal abscess infectious disease doctor has been consulted, continue Zosyn and Flagyl Follow-up blood culture, continue aggressive IV fluids 3. Hyperkalemia Resolved status post IV fluid, nephrology has been consulted, follow-up electrolytes in a.m. 4 . Abdominal abscess x3 possibly 2/2 anastomotic leak as noted on recent CT Abd Status post drainage by interventional radiologist and Diagnostic laparoscopy, Exploratory laparotomy and abdominal washout. Status post CT-guided drainage by interventional radiologist 09/28/2016 , continue aggressive IV antibiotics CT Abd on 10/03 shows resolving abscess in the RLQ but persistent abscesses elsewhere that are mildly improved, at this point there are no plans for further CT guided drainage and previous drain removed Surgery aware of leak, no further intervention needed and cleared for DC per Surgery 3. COPD 4. Essential hypertension, stable 5. Acute anemia 2/2 Anemia of Chronic Dz vs slow GI bleed possibly from anastomotic leak Status post colonoscopy and endoscopy that showed no source of bleeding Negative bleeding scan 6. Pleural effusion s/p Thoracentesis CXR from this AM shows fluid to be re accumulating, increase Lasix to 40 mg IV BID, Pulm on case 7. Acute renal insufficiency, likely secondary to dehydration versus anemia, follow-up renal panel in a.m. nephrology following-stable 8. Hypothyroidism Dispo- Now clear from surgical standpoint but pt not eating due to decrease appetite and Pleural fluid is accumulating, cont TPN if still not eating PPx- SCD's Problems: Subjective 24 Hr Interval Summary Gastrointestinal: decreased appetite Exam/Review of Systems Vital Signs Vitals Vital Signs Date Time Temp Pulse Resp B/P Pulse Ox O2 Delivery O2 Flow Rate FiO2 10/06/16 13:11 Nasal Cannula 3.0 10/06/16 11:35 86 20 90 10/06/16 07:56 98.2 162/76 Intake and Output 10/05/16 10/05/16 10/06/16 15:00 23:00 07:00 Intake Total 1020 ml 580 ml Output Total 2310 ml Balance -1290 ml 580 ml Exam Constitutional: alert Respiratory: clear to auscultation Cardiovascular: regular rate and rhythm Gastrointestinal: soft, No distended Musculoskeletal: nl extremities to inspection Results Result Diagram: 10/06/16 0535 10/06/16 0535 Results 24 hrs Laboratory Tests Test 10/06/16 05:35 Anion Gap 9 Basophils # 0.0 Basophils % 0.2 Blood Urea Nitrogen 9 Calcium Level 7.4 L Carbon Dioxide Level 28 Chloride Level 102 Creatinine 0.94 Eosinophils # 0.2 Eosinophils % 1.4 Glucose Level 125 Hematocrit 29.0 L Hemoglobin 9.5 L Lymphocytes # 1.1 Lymphocytes % 8.1 L Magnesium Level 2.0 Mean Corpuscular Hemoglobin 29.0 Mean Corpuscular Hemoglobin Concent 32.8 Mean Corpuscular Volume 88.4 Mean Platelet Volume 9.2 Monocytes # 1.0 H Monocytes % 7.8 Neutrophils # 10.7 H Neutrophils % 81.8 H Nucleated Red Blood Cells # 0.0 Nucleated Red Blood Cells % 0.0 Phosphorus Level 2.5 Platelet Count 346 Potassium Level 3.2 L Prealbumin 10.8 L Red Blood Count 3.28 L Red Cell Distribution Width 15.3 H Sodium Level 136 White Blood Count 13.1 H Medications Medications Current Medications Salmeterol Xinafoate/ Fluticasone (Advair 250/50 Diskus) 1 inh BID INH Last administered on 10/06/16 08:43; Admin Dose 1 INH; Start 09/20/16 at 09:00 Tiotropium [place] (Spiriva) 1 inh DAILY INH Last administered on 10/06/16 08: 43; Admin Dose 1 INH; Start 09/20/16 at 09:00 Dorzolamide/ Timolol (Cosopt) 1 drop BID LEFT EYE Last administered on 08:43; Admin Dose 1 DROP; Start 09/20/16 at 13:30 Latanoprost (Xalatan) 1 drop DAILY LEFT EYE Last administered on 10/03/16 09: 00; Admin Dose 1 DROP; Start 09/20/16 at 13:30 IV Flush (NS 10 ml) 10 ml PRN PRN IV IV PROTOCOL; Start 09/21/16 at 17:30 Acetaminophen (Tylenol Liquid) 650 mg Q6H PRN NGT PAIN AND OR ELEVATED TEMP Last administered on 10/06/16 08:43; Admin Dose 650 MG; Start 09/22/16 at 00:20 Hydralazine HCl (Apresoline) 10 mg Q6H PRN IV for sbp>160 Last administered on 10/06/16 11:55; Admin Dose 10 MG; Start 09/27/16 at 08:00 Pantoprazole (Protonix Iv) 40 mg BID@06,18 IV Last administered on 10/06/16 05: 20; Admin Dose 40 MG; Start 09/30/16 at 06:00 Morphine Sulfate (morphine) 2 mg Q2H PRN IV pain Last administered on 10/06/16 12:45; Admin Dose 2 MG; Start 09/29/16 at 20:30 Sertraline HCl (Zoloft) 100 mg HS PO Last administered on 10/05/16 20:45; Admin Dose 100 MG; Start 09/29/16 at 23:30 Ondansetron HCl (Zofran Inj) 4 mg Q6H PRN IV NAUSEA AND/OR VOMITING Last administered on 10/05/16 07:48; Admin Dose 4 MG; Start 09/30/16 at 04:00 Ascorbic Acid (Vitamin C) 500 mg DAILY NGT Last administered on 10/06/16 08:42 ; Admin Dose 500 MG; Start 10/02/16 at 09:00 Ferrous Sulfate 325 mg 325 mg DAILY PO Last administered on 10/06/16 08:42; Admin Dose 325 MG; Start 10/01/16 at 17:25 Caspofungin 50 mg/ Sodium Chloride 250 ml @ 250 mls/hr Q24H IVPB Last administered on 10/05/16 21:40; Admin Dose 250 MLS/HR; Start 10/02/16 at 21:00 Ciprofloxacin/ Dextrose 200 ml @ 200 mls/hr Q12 IVPB Last administered on 08:43; Admin Dose 200 MLS/HR; Start 10/01/16 at 21:00 Metronidazole (Flagyl 500 Mg (Pmx)) 100 ml @ 100 mls/hr Q8 IVPB Last administered on 3/3/17at 14:16; Admin Dose 100 MLS/HR; Start 10/01/16 at 22:00 Guaifenesin (Mucinex) 600 mg Q12 PO Last administered on 10/06/16 08:42; Admin Dose 600 MG; Start 10/01/16 at 21:30 Acetaminophen/ Hydrocodone Bitart ([place] (5/325)) 1 tab Q6H PRN PO PAIN Last administered on 10/06/16 14:16; Admin Dose 1 TAB; Start 10/02/16 at 05:30 Lorazepam (Ativan) 0.5 mg Q8H PRN IV ANXIETY; Start 10/04/16 at 12:30 Megestrol Acetate (Megace Susp) 800 mg DAILY PO Last administered on 10/06/16 08:41; Admin Dose 800 MG; Start 10/05/16 at 11:30 Furosemide (Lasix) 20 mg DAILY PO Last administered on 10/06/16 08:42; Admin Dose 20 MG; Start 10/06/16 at 09:00 Amlodipine Besylate (Norvasc) 2.5 mg BID PO ; Start 10/06/16 at 21:00 ELIZA DUNNE Oct 06, 2016 14:39
[2016-10-06] MEDS ORDERED: KETOROLAC 15 MG INJ IV STA (14:52)
--- NOTE | 2016-10-06 15:44 | CONS ---
Date/Time of Note Date/Time of Note DATE: 10/06/16 TIME: 15:42 Assessment/Plan Assessment/Plan Additional Assessment/Plan 1. Sepsis 2/2 to # 2 2. Multiple intra-abdominal abscesses, status post CT-guided aspiration with catheter placement on 09/28/2016.Status post small bowel resection and abscess drainage with exploratory laparotomy on 09/20/2016. 2. Acute kidney injury secondary to acute tubular necrosis from sepsis 3. Acute hyperkalemia with metabolic acidosis likely secondary to acute kidney injury.- now resolved 4. Small bowel obstructions status post exploratory laparotomy and abdominal washout- on TPN currently 5. History of recent laparoscopic appendectomy. 6. History of hypertension 7. History of chronic obstructive pulmonary disease. 8. History of hypothyroidism. PLAN: s/p thoracentesis 800 cc drained, Pelvic CT did not show enough fluid on left pelvis to place a drain catheter, no labs today to review yet continue current IVF with KCL KCL 20mEQ IV x 1 today, on TPN IV abx as per ID making good urine will follow up Consultation Date/Type/Reason Admit Date/Time Sep 19, 2016 at 22:10 Initial Consult Date Sep Type of Consultation: NEPHROLOGY Reason for Consultation Cr normal, good urine output, K low Referring Provider: YAMILE LARA MD 24 HR Interval Summary Free Text/Dictation K low, afebrile, BP stable , on TPN Exam/Review of Systems Vital Signs Vitals Vital Signs Date Time Temp Pulse Resp B/P Pulse Ox O2 Delivery O2 Flow Rate FiO2 10/06/16 15:31 2.0 10/06/16 13:11 Nasal Cannula 10/06/16 11:35 86 20 90 10/06/16 07:56 98.2 162/76 Intake and Output 10/05/16 10/05/16 10/06/16 15:00 23:00 07:00 Intake Total 1020 ml 580 ml Output Total 2310 ml Balance -1290 ml 580 ml Results Result Diagram: 10/06/16 0535 10/06/16 0535 Results 24 hrs Laboratory Tests Test 10/06/16 05:35 Anion Gap 9 Basophils # 0.0 Basophils % 0.2 Blood Urea Nitrogen 9 Calcium Level 7.4 L Carbon Dioxide Level 28 Chloride Level 102 Creatinine 0.94 Eosinophils # 0.2 Eosinophils % 1.4 Glucose Level 125 Hematocrit 29.0 L Hemoglobin 9.5 L Lymphocytes # 1.1 Lymphocytes % 8.1 L Magnesium Level 2.0 Mean Corpuscular Hemoglobin 29.0 Mean Corpuscular Hemoglobin Concent 32.8 Mean Corpuscular Volume 88.4 Mean Platelet Volume 9.2 Monocytes # 1.0 H Monocytes % 7.8 Neutrophils # 10.7 H Neutrophils % 81.8 H Nucleated Red Blood Cells # 0.0 Nucleated Red Blood Cells % 0.0 Phosphorus Level 2.5 Platelet Count 346 Potassium Level 3.2 L Prealbumin 10.8 L Red Blood Count 3.28 L Red Cell Distribution Width 15.3 H Sodium Level 136 White Blood Count 13.1 H Medications Medications Current Medications Salmeterol Xinafoate/ Fluticasone (Advair 250/50 Diskus) 1 inh BID INH Last administered on 10/06/16 08:43; Admin Dose 1 INH; Start 09/20/16 at 09:00 Tiotropium [place] (Spiriva) 1 inh DAILY INH Last administered on 10/06/16 08: 43; Admin Dose 1 INH; Start 09/20/16 at 09:00 Dorzolamide/ Timolol (Cosopt) 1 drop BID LEFT EYE Last administered on 08:43; Admin Dose 1 DROP; Start 09/20/16 at 13:30 Latanoprost (Xalatan) 1 drop DAILY LEFT EYE Last administered on 10/03/16 09: 00; Admin Dose 1 DROP; Start 09/20/16 at 13:30 IV Flush (NS 10 ml) 10 ml PRN PRN IV IV PROTOCOL; Start 09/21/16 at 17:30 Acetaminophen (Tylenol Liquid) 650 mg Q6H PRN NGT PAIN AND OR ELEVATED TEMP Last administered on 10/06/16 08:43; Admin Dose 650 MG; Start 09/22/16 at 00:20 Hydralazine HCl (Apresoline) 10 mg Q6H PRN IV for sbp>160 Last administered on 10/06/16 11:55; Admin Dose 10 MG; Start 09/27/16 at 08:00 Pantoprazole (Protonix Iv) 40 mg BID@,18 IV Last administered on 10/06/16 05: 20; Admin Dose 40 MG; Start 09/30/16 at 06:00 Morphine Sulfate (morphine) 2 mg Q2H PRN IV pain Last administered on 10/06/16 12:45; Admin Dose 2 MG; Start 09/29/16 at 20:30 Sertraline HCl (Zoloft) 100 mg HS PO Last administered on 10/05/16 20:45; Admin Dose 100 MG; Start 09/29/16 at 23:30 Ondansetron HCl (Zofran Inj) 4 mg Q6H PRN IV NAUSEA AND/OR VOMITING Last administered on 10/05/16 07:48; Admin Dose 4 MG; Start 09/30/16 at 04:00 Ascorbic Acid (Vitamin C) 500 mg DAILY NGT Last administered on 10/06/16 08:42 ; Admin Dose 500 MG; Start 10/02/16 at 09:00 Ferrous Sulfate 325 mg 325 mg DAILY PO Last administered on 10/06/16 08:42; Admin Dose 325 MG; Start 10/01/16 at 17:25 Caspofungin 50 mg/ Sodium Chloride 250 ml @ 250 mls/hr Q24H IVPB Last administered on 10/05/16 21:40; Admin Dose 250 MLS/HR; Start 10/02/16 at 21:00 Ciprofloxacin/ Dextrose 200 ml @ 200 mls/hr Q12 IVPB Last administered on 08:43; Admin Dose 200 MLS/HR; Start 10/01/16 at 21:00 Metronidazole (Flagyl 500 Mg (Pmx)) 100 ml @ 100 mls/hr Q8 IVPB Last administered on 10/06/16 14:16; Admin Dose 100 MLS/HR; Start 10/01/16 at 22:00 Guaifenesin (Mucinex) 600 mg Q12 PO Last administered on 10/06/16 08:42; Admin Dose 600 MG; Start 10/01/16 at 21:30 Acetaminophen/ Hydrocodone Bitart ([place] (5/325)) 1 tab Q6H PRN PO PAIN Last administered on 10/06/16 14:16; Admin Dose 1 TAB; Start 10/02/16 at 05:30 Lorazepam (Ativan) 0.5 mg Q8H PRN IV ANXIETY; Start 10/04/16 at 12:30 Megestrol Acetate (Megace Susp) 800 mg DAILY PO Last administered on 3/3/17at 08:41; Admin Dose 800 MG; Start 10/05/16 at 11:30 Amlodipine Besylate (Norvasc) 2.5 mg BID PO ; Start 10/06/16 at 21:00 MADISYN MANUEL MD Oct 06, 2016 15:44
[2016-10-06] MEDS: FUROSEMIDE 40 MG INJ IV SCH (17:33)
[2016-10-06 20:12] VITALS: BP 133/60; RESP 18
[2016-10-06] MEDS: SERTRALINE 100 MG TAB PO SCH (22:51)
[2016-10-06] MEDS: AMLODIPINE 2.5 MG TAB PO SCH (22:53)
[2016-10-06] MEDS: ZOLPIDEM 5 MG TAB PO PRN (22:53)
[2016-10-06] MEDS: CASPOFUNGIN 50 MG in SOD CHLORIDE 0.9% 250 ML IVPB SCH (23:05)
[2016-10-07] MEDS: ZOLPIDEM 5 MG TAB PO PRN (00:07)
[2016-10-07] MEDS: metroNIDAZOLE 500 MG/NS (PMX) 100 ML IVPB SCH ×4 (00:07→21:34)
[2016-10-07 05:08] LABS: ADD SCAN DIFF NO
[2016-10-07 05:20] LABS: BASOPHILS % 0.3 % (0.0-2.0); EOSINOPHILS # 0.2 10^3/ul (0.0-0.5); EOSINOPHILS % 1.1 % (0.0-7.0); HEMATOCRIT 30.7 % (37.0-47.0); HEMOGLOBIN 9.8 g/dl (12.0-16.0); LYMPHOCYTES # 1.4 10^3/ul (0.8-2.9); LYMPHOCYTES % 9.6 % (15.0-51.0); MEAN CORPUSCULAR HEMOGLOBIN 28.5 pg (29.0-33.0); MEAN CORPUSCULAR HGB CONC 31.9 g/dl (32.0-37.0); MEAN CORPUSCULAR VOLUME 89.2 fl (82.0-101.0); MEAN PLATELET VOLUME 9.1 fl (7.4-10.4); MONOCYTE # 1.2 10^3/ul (0.3-0.9); MONOCYTES % 8.3 % (0.0-11.0); NEUTROPHIL # 11.4 10^3/ul (1.6-7.5); NEUTROPHILS % 79.9 % (39.0-77.0); PLATELET COUNT 336 10^3/UL (140-415); RED BLOOD COUNT 3.44 10^6/ul (4.20-5.40); RED CELL DISTRIBUTION WIDTH 15.7 % (11.5-14.5); WHITE BLOOD COUNT 14.3 10^3/ul (4.8-10.8)
[2016-10-07 05:42] LABS: POTASSIUM 3.4 mmol/L (3.5-5.1)
[2016-10-07 05:44] LABS: CREATININE 0.97 mg/dl (0.44-1.00)
[2016-10-07 05:45] LABS: PHOSPHORUS 2.8 mg/dl (2.5-4.9)
[2016-10-07 05:46] LABS: CALCIUM 7.6 mg/dl (8.4-10.2); MAGNESIUM 1.7 mg/dl (1.7-2.5)
[2016-10-07] MEDS: PANTOPRAZOLE 40 MG INJ IV SCH ×2 (05:55→17:38)
[2016-10-07] MEDS: FUROSEMIDE 40 MG INJ IV SCH ×2 (05:56→17:39)
[2016-10-07 07:53] VITALS: BP 138/66; RESP 20
[2016-10-07] MEDS: CIPROFLOXACIN 400MG/D5W 200 ML IVPB SCH ×2 (09:23→21:34)
[2016-10-07] MEDS: FERROUS SULFATE (EC) 325 MG TAB PO SCH (09:23)
[2016-10-07] MEDS: MEGESTROL (40 MG/ML) 10ML CUP PO SCH (09:23)
[2016-10-07] MEDS: GUAIFENESIN LA 600 MG TABSR PO SCH ×2 (09:23→21:33)
[2016-10-07] MEDS: AMLODIPINE 2.5 MG TAB PO SCH ×2 (09:24→21:34)
[2016-10-07] MEDS: ASCORBIC ACID 500 MG TAB NGT SCH (09:24)
[2016-10-07] MEDS: SALMETEROL/FLUTICASONE 250/50 INHA INH SCH ×2 (09:25→21:34)
[2016-10-07] MEDS: DORZOLAMIDE/TIMOLOL 10 ML OPH LEFT EYE SCH ×2 (09:25→21:35)
[2016-10-07] MEDS: TIOTROPIUM 18 MCG CAPSULE INHA DEV INH SCH (09:28)
[2016-10-07] MEDS: LATANOPROST 0.005% 2.5 ML OPH LEFT EYE SCH (09:33)
--- NOTE | 2016-10-07 09:50 | CONS ---
Date/Time of Note Date/Time of Note DATE: 10/07/16 TIME: 09:48 Assessment/Plan Assessment/Plan Chief Complaint/Hosp Course Small bowel obstruction with abdominal abscess status post repeat surgery Recent shock Acute blood loss anemia Diastolic congestive heart failure Acute appendicitis status post surgery Preserved ejection fraction Hypertension Acute kidney injury. Pleural effusion status post thoracentesis Problems: Additional Assessment/Plan 1) Magnesium 1 gm IV 2) Potassium 20 meQ, IV Consultation Date/Type/Reason Admit Date/Time Sep 19, 2016 at 22:10 Type of Consultation: CV Referring Provider: YAMILE LARA MD Detailed Summary Respiratory: no complaints Cardiovascular: no complaints Gastrointestinal: no complaints Musculoskeletal: no complaints Neurologic: no complaints Exam/Review of Systems Vital Signs Vitals Vital Signs Date Time Temp Pulse Resp B/P Pulse Ox O2 Delivery O2 Flow Rate FiO2 10/07/16 07:53 98.8 100 20 138/66 95 10/07/16 01:26 2.0 10/06/16 20:50 Nasal Cannula Intake and Output 10/06/16 10/06/16 10/07/16 15:00 23:00 07:00 Intake Total 1830 ml 690 ml Output Total 900 ml 1500 ml Balance -900 ml 330 ml 690 ml Exam Constitutional: alert, oriented Head: atraumatic, normocephalic Neck: supple Respiratory: clear to auscultation Cardiovascular: regular rate and rhythm Gastrointestinal: soft Musculoskeletal: nl extremities to inspection Results Result Diagram: 10/07/16 0454 10/07/16 0454 Results 24 hrs Laboratory Tests Test 10/07/16 04:54 Anion Gap 10 Basophils # 0.0 Basophils % 0.3 Blood Urea Nitrogen 13 Calcium Level 7.6 L Carbon Dioxide Level 28 Chloride Level 105 Creatinine 0.97 Eosinophils # 0.2 Eosinophils % 1.1 Glucose Level 82 # Hematocrit 30.7 L Hemoglobin 9.8 L Lymphocytes # 1.4 Lymphocytes % 9.6 L Magnesium Level 1.7 Mean Corpuscular Hemoglobin 28.5 L Mean Corpuscular Hemoglobin Concent 31.9 L Mean Corpuscular Volume 89.2 Mean Platelet Volume 9.1 Monocytes # 1.2 H Monocytes % 8.3 Neutrophils # 11.4 H Neutrophils % 79.9 H Nucleated Red Blood Cells # 0.0 Nucleated Red Blood Cells % 0.0 Phosphorus Level 2.8 Platelet Count 336 Potassium Level 3.4 L Red Blood Count 3.44 L Red Cell Distribution Width 15.7 H Sodium Level 140 White Blood Count 14.3 H Medications Medications Current Medications Salmeterol Xinafoate/ Fluticasone (Advair 250/50 Diskus) 1 inh BID INH Last administered on 10/07/16 09:25; Admin Dose 1 INH; Start 09/20/16 at 09:00 Tiotropium [place] (Spiriva) 1 inh DAILY INH Last administered on 10/07/16 09: 28; Admin Dose 1 INH; Start 09/20/16 at 09:00 Dorzolamide/ Timolol (Cosopt) 1 drop BID LEFT EYE Last administered on 09:25; Admin Dose 1 DROP; Start 09/20/16 at 13:30 Latanoprost (Xalatan) 1 drop DAILY LEFT EYE Last administered on 10/07/16 09:33 ; Admin Dose 1 DROP; Start 09/20/16 at 13:30 IV Flush (NS 10 ml) 10 ml PRN PRN IV IV PROTOCOL; Start 09/21/16 at 17:30 Acetaminophen (Tylenol Liquid) 650 mg Q6H PRN NGT PAIN AND OR ELEVATED TEMP Last administered on 10/06/16 08:43; Admin Dose 650 MG; Start 09/22/16 at 00:20 Hydralazine HCl (Apresoline) 10 mg Q6H PRN IV for sbp>160 Last administered on 10/06/16 11:55; Admin Dose 10 MG; Start 09/27/16 at 08:00 Pantoprazole (Protonix Iv) 40 mg BID@06,18 IV Last administered on 10/07/16 05: 55; Admin Dose 40 MG; Start 09/30/16 at 06:00 Morphine Sulfate (morphine) 2 mg Q2H PRN IV pain Last administered on 10/06/16 12:45; Admin Dose 2 MG; Start 09/29/16 at 20:30 Sertraline HCl (Zoloft) 100 mg HS PO Last administered on 10/06/16 22:51; Admin Dose 100 MG; Start 09/29/16 at 23:30 Ondansetron HCl (Zofran Inj) 4 mg Q6H PRN IV NAUSEA AND/OR VOMITING Last administered on 10/05/16 07:48; Admin Dose 4 MG; Start 09/30/16 at 04:00 Ascorbic Acid (Vitamin C) 500 mg DAILY NGT Last administered on 10/07/16 09:24 ; Admin Dose 500 MG; Start 10/02/16 at 09:00 Ferrous Sulfate 325 mg 325 mg DAILY PO Last administered on 10/07/16 09:23; Admin Dose 325 MG; Start 10/01/16 at 17:25 Caspofungin 50 mg/ Sodium Chloride 250 ml @ 250 mls/hr Q24H IVPB Last administered on 10/06/16 23:05; Admin Dose 250 MLS/HR; Start 10/02/16 at 21:00 Ciprofloxacin/ Dextrose 200 ml @ 200 mls/hr Q12 IVPB Last administered on 09:23; Admin Dose 200 MLS/HR; Start 10/01/16 at 21:00 Metronidazole (Flagyl 500 Mg (Pmx)) 100 ml @ 100 mls/hr Q8 IVPB Last administered on 10/07/16 05:55; Admin Dose 100 MLS/HR; Start 10/01/16 at 22:00 Guaifenesin (Mucinex) 600 mg Q12 PO Last administered on 10/07/16 09:23; Admin Dose 600 MG; Start 10/01/16 at 21:30 Acetaminophen/ Hydrocodone Bitart ([place] (5/325)) 1 tab Q6H PRN PO PAIN Last administered on 10/06/16 14:16; Admin Dose 1 TAB; Start 10/02/16 at 05:30 Lorazepam (Ativan) 0.5 mg Q8H PRN IV ANXIETY; Start 10/04/16 at 12:30 Megestrol Acetate (Megace Susp) 800 mg DAILY PO Last administered on 10/07/16 09:23; Admin Dose 800 MG; Start 10/05/16 at 11:30 Amlodipine Besylate (Norvasc) 2.5 mg BID PO Last administered on 10/07/16 09:24 ; Admin Dose 2.5 MG; Start 10/06/16 at 21:00 TAO KERN MD Oct 07, 2016 09:50
[2016-10-07] MEDS ORDERED: MAGNESIUM SULFATE (GM) 50% 2 ML INJ IVPB ONE (10:00)
[2016-10-07] MEDS ORDERED: MAGNESIUM SULFATE 1 GM/D5W 100 ML IVPB ONE (10:30)
[2016-10-07] MEDS ORDERED: POTASSIUM CHLORIDE 20 MEQ in SOD CHLORIDE 0.9% 100 ML IVPB ONE (10:30)
--- NOTE | 2016-10-07 13:30 | CONS ---
Date/Time of Note Date/Time of Note DATE: 10/07/16 TIME: 13:28 Assessment/Plan Assessment/Plan Chief Complaint/Hosp Course SUBJECTIVE: No acute changes. Pt has significant urinary retention, requires straight cath around the clock, no fevers, nad Abx: 1. Flagyl. 2. Cipro. 3. Cancidas. INDWELLINGS: PICC line placed on 09/21/2016. PHYSICAL EXAMINATION: GENERAL: This is a well-developed, fragile, elderly woman who is alert, in no distress. HEENT: Head atraumatic, normocephalic. Sclerae anicteric. Buccal mucosa pink. NECK: Supple, trachea midline. CHEST: Rise symmetrical. Breath sounds diminished to bases. HEART: S1, S2. ABDOMEN: Soft. Bowel sounds present. EXTREMITIES: Without cyanosis. ASSESSMENT: 1. Systemic inflammatory response syndrome with resolving leukocytosis. 2. Multiple intra-abdominal abscesses, status post exploratory laparotomy with small bowel resection and abscess drainage on 09/20/2016, and subsequently status post CT-guided drainage on 09/28/2016. 3. Bilateral pleural effusions, status post thoracentesis on 10/04/2016. 4. Anemia with bleeding scan and EGD have been negative. 5. Acute on chronic kidney disease. 6. Resolving ileus. 7. Urinary retention PLAN: Remains stable, continue abx, straight cath prn, consider urology eval, f /u surgical rer-s [facility] staff Problems: Consultation Date/Type/Reason Admit Date/Time Sep 19, 2016 at 22:10 Type of Consultation: ID Referring Provider: YAMILE LARA MD Exam/Review of Systems Vital Signs Vitals Vital Signs Date Time Temp Pulse Resp B/P Pulse Ox O2 Delivery O2 Flow Rate FiO2 10/07/16 12:59 Nasal Cannula 3.0 10/07/16 07:53 98.8 100 20 138/66 95 Intake and Output 10/06/16 10/06/16 10/07/16 15:00 23:00 07:00 Intake Total 1830 ml 690 ml Output Total 900 ml 1500 ml Balance -900 ml 330 ml 690 ml Results Result Diagram: 10/07/16 0454 10/07/16 0454 Results 24 hrs Laboratory Tests Test 10/07/16 04:54 Anion Gap 10 Basophils # 0.0 Basophils % 0.3 Blood Urea Nitrogen 13 Calcium Level 7.6 L Carbon Dioxide Level 28 Chloride Level 105 Creatinine 0.97 Eosinophils # 0.2 Eosinophils % 1.1 Glucose Level 82 # Hematocrit 30.7 L Hemoglobin 9.8 L Lymphocytes # 1.4 Lymphocytes % 9.6 L Magnesium Level 1.7 Mean Corpuscular Hemoglobin 28.5 L Mean Corpuscular Hemoglobin Concent 31.9 L Mean Corpuscular Volume 89.2 Mean Platelet Volume 9.1 Monocytes # 1.2 H Monocytes % 8.3 Neutrophils # 11.4 H Neutrophils % 79.9 H Nucleated Red Blood Cells # 0.0 Nucleated Red Blood Cells % 0.0 Phosphorus Level 2.8 Platelet Count 336 Potassium Level 3.4 L Red Blood Count 3.44 L Red Cell Distribution Width 15.7 H Sodium Level 140 White Blood Count 14.3 H Medications Medications Current Medications Salmeterol Xinafoate/ Fluticasone (Advair 250/50 Diskus) 1 inh BID INH Last administered on 10/07/16 09:25; Admin Dose 1 INH; Start 09/20/16 at 09:00 Tiotropium [place] (Spiriva) 1 inh DAILY INH Last administered on 10/07/16 09: 28; Admin Dose 1 INH; Start 09/20/16 at 09:00 Dorzolamide/ Timolol (Cosopt) 1 drop BID LEFT EYE Last administered on 09:25; Admin Dose 1 DROP; Start 09/20/16 at 13:30 Latanoprost (Xalatan) 1 drop DAILY LEFT EYE Last administered on 10/07/16 09:33 ; Admin Dose 1 DROP; Start 09/20/16 at 13:30 IV Flush (NS 10 ml) 10 ml PRN PRN IV IV PROTOCOL; Start 09/21/16 at 17:30 Acetaminophen (Tylenol Liquid) 650 mg Q6H PRN NGT PAIN AND OR ELEVATED TEMP Last administered on 10/06/16 08:43; Admin Dose 650 MG; Start 09/22/16 at 00:20 Hydralazine HCl (Apresoline) 10 mg Q6H PRN IV for sbp>160 Last administered on 10/06/16 11:55; Admin Dose 10 MG; Start 09/27/16 at 08:00 Pantoprazole (Protonix Iv) 40 mg BID@06,18 IV Last administered on 10/07/16 05: 55; Admin Dose 40 MG; Start 09/30/16 at 06:00 Morphine Sulfate (morphine) 2 mg Q2H PRN IV pain Last administered on 10/06/16 12:45; Admin Dose 2 MG; Start 09/29/16 at 20:30 Sertraline HCl (Zoloft) 100 mg HS PO Last administered on 10/06/16 22:51; Admin Dose 100 MG; Start 09/29/16 at 23:30 Ondansetron HCl (Zofran Inj) 4 mg Q6H PRN IV NAUSEA AND/OR VOMITING Last administered on 10/05/16 07:48; Admin Dose 4 MG; Start 09/30/16 at 04:00 Ascorbic Acid (Vitamin C) 500 mg DAILY NGT Last administered on 10/07/16 09:24 ; Admin Dose 500 MG; Start 10/02/16 at 09:00 Ferrous Sulfate 325 mg 325 mg DAILY PO Last administered on 10/07/16 09:23; Admin Dose 325 MG; Start 10/01/16 at 17:25 Caspofungin 50 mg/ Sodium Chloride 250 ml @ 250 mls/hr Q24H IVPB Last administered on 10/06/16 23:05; Admin Dose 250 MLS/HR; Start 10/02/16 at 21:00 Ciprofloxacin/ Dextrose 200 ml @ 200 mls/hr Q12 IVPB Last administered on 09:23; Admin Dose 200 MLS/HR; Start 10/01/16 at 21:00 Metronidazole (Flagyl 500 Mg (Pmx)) 100 ml @ 100 mls/hr Q8 IVPB Last administered on 10/07/16 13:10; Admin Dose 100 MLS/HR; Start 10/01/16 at 22:00 Guaifenesin (Mucinex) 600 mg Q12 PO Last administered on 10/07/16 09:23; Admin Dose 600 MG; Start 10/01/16 at 21:30 Acetaminophen/ Hydrocodone Bitart ([place] (5/325)) 1 tab Q6H PRN PO PAIN Last administered on 10/06/16 14:16; Admin Dose 1 TAB; Start 10/02/16 at 05:30 Lorazepam (Ativan) 0.5 mg Q8H PRN IV ANXIETY; Start 10/04/16 at 12:30 Megestrol Acetate (Megace Susp) 800 mg DAILY PO Last administered on 10/07/16 09:23; Admin Dose 800 MG; Start 10/05/16 at 11:30 Amlodipine Besylate (Norvasc) 2.5 mg BID PO Last administered on 10/07/16 09:24 ; Admin Dose 2.5 MG; Start 10/06/16 at 21:00 YASMANY BECERRA NP Oct 07, 2016 13:30
--- NOTE | 2016-10-07 14:56 | CONS ---
Date/Time of Note Date/Time of Note DATE: 10/07/16 TIME: 14:51 Consult Date/Type/Reason Admit Date/Time Sep 19, 2016 at 22:10 Type of Consultation: Pulm Ordering Provider: YAMILE LARA MD Subjective No events. Breathing comfortably. Objective Vital Signs Date Time Temp Pulse Resp B/P Pulse Ox O2 Delivery O2 Flow Rate FiO2 10/07/16 12:59 Nasal Cannula 3.0 10/07/16 07:53 98.8 100 20 138/66 95 Intake and Output 10/06/16 10/06/16 10/07/16 15:00 23:00 07:00 Intake Total 1830 ml 690 ml Output Total 900 ml 1500 ml Balance -900 ml 330 ml 690 ml HEENT: Neck supple; no JVD; no LAD CVS: RRR, S1 and S2 CHEST: Clear ABD: Soft, NT, + BS EXT: No c/c/e Results/Medications Result Diagram: 10/07/16 0454 10/07/16 0454 Results 24 hrs Laboratory Tests Test 10/07/16 04:54 Anion Gap 10 Basophils # 0.0 Basophils % 0.3 Blood Urea Nitrogen 13 Calcium Level 7.6 L Carbon Dioxide Level 28 Chloride Level 105 Creatinine 0.97 Eosinophils # 0.2 Eosinophils % 1.1 Glucose Level 82 # Hematocrit 30.7 L Hemoglobin 9.8 L Lymphocytes # 1.4 Lymphocytes % 9.6 L Magnesium Level 1.7 Mean Corpuscular Hemoglobin 28.5 L Mean Corpuscular Hemoglobin Concent 31.9 L Mean Corpuscular Volume 89.2 Mean Platelet Volume 9.1 Monocytes # 1.2 H Monocytes % 8.3 Neutrophils # 11.4 H Neutrophils % 79.9 H Nucleated Red Blood Cells # 0.0 Nucleated Red Blood Cells % 0.0 Phosphorus Level 2.8 Platelet Count 336 Potassium Level 3.4 L Red Blood Count 3.44 L Red Cell Distribution Width 15.7 H Sodium Level 140 White Blood Count 14.3 H Medications Current Medications Salmeterol Xinafoate/ Fluticasone (Advair 250/50 Diskus) 1 inh BID INH Last administered on 10/07/16 09:25; Admin Dose 1 INH; Start 09/20/16 at 09:00 Tiotropium [place] (Spiriva) 1 inh DAILY INH Last administered on 10/07/16 09: 28; Admin Dose 1 INH; Start 09/20/16 at 09:00 Dorzolamide/ Timolol (Cosopt) 1 drop BID LEFT EYE Last administered on 09:25; Admin Dose 1 DROP; Start 09/20/16 at 13:30 Latanoprost (Xalatan) 1 drop DAILY LEFT EYE Last administered on 10/07/16 09:33 ; Admin Dose 1 DROP; Start 09/20/16 at 13:30 IV Flush (NS 10 ml) 10 ml PRN PRN IV IV PROTOCOL; Start 09/21/16 at 17:30 Acetaminophen (Tylenol Liquid) 650 mg Q6H PRN NGT PAIN AND OR ELEVATED TEMP Last administered on 10/06/16 08:43; Admin Dose 650 MG; Start 09/22/16 at 00:20 Hydralazine HCl (Apresoline) 10 mg Q6H PRN IV for sbp>160 Last administered on 10/06/16 11:55; Admin Dose 10 MG; Start 09/27/16 at 08:00 Pantoprazole (Protonix Iv) 40 mg BID@06,18 IV Last administered on 10/07/16 05: 55; Admin Dose 40 MG; Start 09/30/16 at 06:00 Morphine Sulfate (morphine) 2 mg Q2H PRN IV pain Last administered on 10/06/16 12:45; Admin Dose 2 MG; Start 09/29/16 at 20:30 Sertraline HCl (Zoloft) 100 mg HS PO Last administered on 10/06/16 22:51; Admin Dose 100 MG; Start 09/29/16 at 23:30 Ondansetron HCl (Zofran Inj) 4 mg Q6H PRN IV NAUSEA AND/OR VOMITING Last administered on 10/05/16 07:48; Admin Dose 4 MG; Start 09/30/16 at 04:00 Ascorbic Acid (Vitamin C) 500 mg DAILY NGT Last administered on 10/07/16 09:24 ; Admin Dose 500 MG; Start 10/02/16 at 09:00 Ferrous Sulfate 325 mg 325 mg DAILY PO Last administered on 10/07/16 09:23; Admin Dose 325 MG; Start 10/01/16 at 17:25 Caspofungin 50 mg/ Sodium Chloride 250 ml @ 250 mls/hr Q24H IVPB Last administered on 10/06/16 23:05; Admin Dose 250 MLS/HR; Start 10/02/16 at 21:00 Ciprofloxacin/ Dextrose 200 ml @ 200 mls/hr Q12 IVPB Last administered on 09:23; Admin Dose 200 MLS/HR; Start 10/01/16 at 21:00 Metronidazole (Flagyl 500 Mg (Pmx)) 100 ml @ 100 mls/hr Q8 IVPB Last administered on 10/07/16 13:10; Admin Dose 100 MLS/HR; Start 10/01/16 at 22:00 Guaifenesin (Mucinex) 600 mg Q12 PO Last administered on 10/07/16 09:23; Admin Dose 600 MG; Start 10/01/16 at 21:30 Acetaminophen/ Hydrocodone Bitart ([place] (5/325)) 1 tab Q6H PRN PO PAIN Last administered on 10/06/16 14:16; Admin Dose 1 TAB; Start 10/02/16 at 05:30 Lorazepam (Ativan) 0.5 mg Q8H PRN IV ANXIETY; Start 10/04/16 at 12:30 Megestrol Acetate (Megace Susp) 800 mg DAILY PO Last administered on 10/07/16 09:23; Admin Dose 800 MG; Start 10/05/16 at 11:30 Amlodipine Besylate (Norvasc) 2.5 mg BID PO Last administered on 10/07/16 09:24 ; Admin Dose 2.5 MG; Start 10/06/16 at 21:00 Assessment/Plan Additional Assessment/Plan IMPRESSION: 1. Multiple intraabdominal abscesses, status post laparotomy and bowel resection. 2. Pleural effusion, status post thoracentesis. 3. Resolving ileus. 4. Acute on chronic kidney disease. 5. History of diastolic dysfunction. RECS: 1. Abx per ID 2. Resp status stable, no evidence of significant size effusions 3. CXR's prn REGINALDO TRUONG MD Oct 07, 2016 14:56
--- NOTE | 2016-10-07 15:53 | CONS ---
Date/Time of Note Date/Time of Note DATE: 10/07/16 TIME: 15:52 Assessment/Plan Assessment/Plan Chief Complaint/Hosp Course IMPRESSION: 1. Gastrointestinal bleeding. bleeding scan negative,EGD negative,bleeding seems to have stopped 2. Multiple intra-abdominal abscesses, status post exploratory laparotomy with small bowel resection and abscess drainage on 09/20/2016, and subsequently status post CT-guided drainage on 09/28/2016. 3. Status post surgery for small-bowel obstruction, and also laparoscopic removal of the appendix. 4. Chronic obstructive pulmonary disease. 5. Hypertension. 6. Mild renal insufficiency. 7. Reduced appetite Plan monitor H&H surgical f/u for wound care antibiotics per ID continue megace and encourage a PO diet Problems: Consultation Date/Type/Reason Admit Date/Time Sep 19, 2016 at 22:10 Initial Consult Date Type of Consultation: GI Referring Provider: YAMILE LARA MD 24 HR Interval Summary Free Text/Dictation decreased appetitie, no n/v. Exam/Review of Systems Vital Signs Vitals Vital Signs Date Time Temp Pulse Resp B/P Pulse Ox O2 Delivery O2 Flow Rate FiO2 10/07/16 12:59 Nasal Cannula 3.0 10/07/16 07:53 98.8 100 20 138/66 95 Intake and Output 10/06/16 10/06/16 10/07/16 15:00 23:00 07:00 Intake Total 1830 ml 690 ml Output Total 900 ml 1500 ml Balance -900 ml 330 ml 690 ml Exam Constitutional: alert, oriented, well developed Psych: nl mood/affect, no complaints Head: atraumatic, normocephalic Eyes: EOMI, nl conjunctiva, nl lids, nl sclera ENMT: mucosa pink and moist, nl external ears & nose, nl lips & teeth, nl nasal mucosa & septum Neck: non-tender, supple Respiratory: clear to auscultation, normal air movement Cardiovascular: nl pulses, regular rate and rhythm Gastrointestinal: bowel sounds, non-tender, soft Results Result Diagram: 10/07/16 0454 10/07/16 0454 Results 24 hrs Laboratory Tests Test 10/07/16 04:54 Anion Gap 10 Basophils # 0.0 Basophils % 0.3 Blood Urea Nitrogen 13 Calcium Level 7.6 L Carbon Dioxide Level 28 Chloride Level 105 Creatinine 0.97 Eosinophils # 0.2 Eosinophils % 1.1 Glucose Level 82 # Hematocrit 30.7 L Hemoglobin 9.8 L Lymphocytes # 1.4 Lymphocytes % 9.6 L Magnesium Level 1.7 Mean Corpuscular Hemoglobin 28.5 L Mean Corpuscular Hemoglobin Concent 31.9 L Mean Corpuscular Volume 89.2 Mean Platelet Volume 9.1 Monocytes # 1.2 H Monocytes % 8.3 Neutrophils # 11.4 H Neutrophils % 79.9 H Nucleated Red Blood Cells # 0.0 Nucleated Red Blood Cells % 0.0 Phosphorus Level 2.8 Platelet Count 336 Potassium Level 3.4 L Red Blood Count 3.44 L Red Cell Distribution Width 15.7 H Sodium Level 140 White Blood Count 14.3 H Medications Medications Current Medications Salmeterol Xinafoate/ Fluticasone (Advair 250/50 Diskus) 1 inh BID INH Last administered on 10/07/16 09:25; Admin Dose 1 INH; Start 09/20/16 at 09:00 Tiotropium [place] (Spiriva) 1 inh DAILY INH Last administered on 10/07/16 09: 28; Admin Dose 1 INH; Start 09/20/16 at 09:00 Dorzolamide/ Timolol (Cosopt) 1 drop BID LEFT EYE Last administered on 09:25; Admin Dose 1 DROP; Start 09/20/16 at 13:30 Latanoprost (Xalatan) 1 drop DAILY LEFT EYE Last administered on 10/07/16 09:33 ; Admin Dose 1 DROP; Start 09/20/16 at 13:30 IV Flush (NS 10 ml) 10 ml PRN PRN IV IV PROTOCOL; Start 09/21/16 at 17:30 Acetaminophen (Tylenol Liquid) 650 mg Q6H PRN NGT PAIN AND OR ELEVATED TEMP Last administered on 10/06/16 08:43; Admin Dose 650 MG; Start 09/22/16 at 00:20 Hydralazine HCl (Apresoline) 10 mg Q6H PRN IV for sbp>160 Last administered on 10/06/16 11:55; Admin Dose 10 MG; Start 09/27/16 at 08:00 Pantoprazole (Protonix Iv) 40 mg BID@18 IV Last administered on 10/07/16 05: 55; Admin Dose 40 MG; Start 09/30/16 at 06:00 Morphine Sulfate (morphine) 2 mg Q2H PRN IV pain Last administered on 10/06/16 12:45; Admin Dose 2 MG; Start 09/29/16 at 20:30 Sertraline HCl (Zoloft) 100 mg HS PO Last administered on 10/06/16 22:51; Admin Dose 100 MG; Start 09/29/16 at 23:30 Ondansetron HCl (Zofran Inj) 4 mg Q6H PRN IV NAUSEA AND/OR VOMITING Last administered on 10/05/16 07:48; Admin Dose 4 MG; Start 09/30/16 at 04:00 Ascorbic Acid (Vitamin C) 500 mg DAILY NGT Last administered on 10/07/16 09:24 ; Admin Dose 500 MG; Start 10/02/16 at 09:00 Ferrous Sulfate 325 mg 325 mg DAILY PO Last administered on 10/07/16 09:23; Admin Dose 325 MG; Start 10/01/16 at 17:25 Caspofungin 50 mg/ Sodium Chloride 250 ml @ 250 mls/hr Q24H IVPB Last administered on 10/06/16 23:05; Admin Dose 250 MLS/HR; Start 10/02/16 at 21:00 Ciprofloxacin/ Dextrose 200 ml @ 200 mls/hr Q12 IVPB Last administered on 09:23; Admin Dose 200 MLS/HR; Start 10/01/16 at 21:00 Metronidazole (Flagyl 500 Mg (Pmx)) 100 ml @ 100 mls/hr Q8 IVPB Last administered on 10/07/16 13:10; Admin Dose 100 MLS/HR; Start 10/01/16 at 22:00 Guaifenesin (Mucinex) 600 mg Q12 PO Last administered on 10/07/16 09:23; Admin Dose 600 MG; Start 10/01/16 at 21:30 Acetaminophen/ Hydrocodone Bitart ([place] (5/325)) 1 tab Q6H PRN PO PAIN Last administered on 10/06/16 14:16; Admin Dose 1 TAB; Start 10/02/16 at 05:30 Lorazepam (Ativan) 0.5 mg Q8H PRN IV ANXIETY; Start 10/04/16 at 12:30 Megestrol Acetate (Megace Susp) 800 mg DAILY PO Last administered on 10/07/16 09:23; Admin Dose 800 MG; Start 10/05/16 at 11:30 Amlodipine Besylate (Norvasc) 2.5 mg BID PO Last administered on 10/07/16 09:24 ; Admin Dose 2.5 MG; Start 10/06/16 at 21:00 LEO CEDENO MD Oct 07, 2016 15:53
--- NOTE | 2016-10-07 18:54 | PN ---
Date/Time of Note Date/Time of Note DATE: 10/07/16 TIME: 18:49 Assessment/Plan VTE Prophylaxis VTE Prophylaxis Intervention: SCD's Lines/Catheters Urinary Cath still in place: No Assessment/Plan Chief Complaint/Hosp Course 1. Small bowel obstruction s/p Recent Laproscopic Appendectomy Status post small bowel resection x2. Continue postsurgical care, pain management and IV antibiotics Diet as per general surgery recommendations, s/p TPN, cont Megace and encourage a PO diet Abdominal x-ray negative for obstruction 2. Sepsis-Improving 2/2 intra-abdominal abscess infectious disease following, continue Cipro and Flagyl Follow-up blood culture, continue aggressive IV fluids 3. Hyperkalemia Resolved status post IV fluid, nephrology has been consulted, follow-up electrolytes in a.m. 4 . Abdominal abscess x3 possibly 2/2 anastomotic leak as noted on recent CT Abd Status post drainage by interventional radiologist and Diagnostic laparoscopy, Exploratory laparotomy and abdominal washout. Status post CT-guided drainage by interventional radiologist 09/28/2016 , continue aggressive IV antibiotics CT Abd on 10/03 shows resolving abscess in the RLQ but persistent abscesses elsewhere that are mildly improved, at this point there are no plans for further CT guided drainage and previous drain removed Surgery aware of leak, no further intervention needed and cleared for DC per Surgery 3. COPD 4. Essential hypertension, stable 5. Acute anemia 2/2 Anemia of Chronic Dz vs slow GI bleed possibly from anastomotic leak Status post colonoscopy and endoscopy that showed no source of bleeding Negative bleeding scan 6. Pleural effusion s/p Thoracentesis CXR from this AM shows fluid to be re accumulating, increase Lasix to 40 mg IV BID, Pulm on case 7. Acute renal insufficiency, likely secondary to dehydration versus anemia, follow-up renal panel in a.m. nephrology following-stable 8. Hypothyroidism 9. Urinary retention likely 2/2 Neurogenic Bladder -Santos inserted today as PVR's have been high, Urology consult Dispo- Now clear from surgical standpoint but pt not eating due to decrease appetite and Pleural fluid is accumulating, consider restarting TPN tomorrow if still not eating, Uro consult PPx- SCD's Problems: Subjective 24 Hr Interval Summary Gastrointestinal: decreased appetite Exam/Review of Systems Vital Signs Vitals Vital Signs Date Time Temp Pulse Resp B/P Pulse Ox O2 Delivery O2 Flow Rate FiO2 10/07/16 12:59 Nasal Cannula 3.0 10/07/16 07:53 98.8 100 20 138/66 95 Intake and Output 10/06/16 10/06/16 10/07/16 15:00 23:00 07:00 Intake Total 1830 ml 690 ml Output Total 900 ml 1500 ml Balance -900 ml 330 ml 690 ml Exam Constitutional: alert, oriented Respiratory: clear to auscultation Cardiovascular: regular rate and rhythm Gastrointestinal: soft, No distended Musculoskeletal: nl extremities to inspection Results Result Diagram: 10/07/16 0454 10/07/16 0454 Results 24 hrs Laboratory Tests Test 10/07/16 04:54 Anion Gap 10 Basophils # 0.0 Basophils % 0.3 Blood Urea Nitrogen 13 Calcium Level 7.6 L Carbon Dioxide Level 28 Chloride Level 105 Creatinine 0.97 Eosinophils # 0.2 Eosinophils % 1.1 Glucose Level 82 # Hematocrit 30.7 L Hemoglobin 9.8 L Lymphocytes # 1.4 Lymphocytes % 9.6 L Magnesium Level 1.7 Mean Corpuscular Hemoglobin 28.5 L Mean Corpuscular Hemoglobin Concent 31.9 L Mean Corpuscular Volume 89.2 Mean Platelet Volume 9.1 Monocytes # 1.2 H Monocytes % 8.3 Neutrophils # 11.4 H Neutrophils % 79.9 H Nucleated Red Blood Cells # 0.0 Nucleated Red Blood Cells % 0.0 Phosphorus Level 2.8 Platelet Count 336 Potassium Level 3.4 L Red Blood Count 3.44 L Red Cell Distribution Width 15.7 H Sodium Level 140 White Blood Count 14.3 H Medications Medications Current Medications Salmeterol Xinafoate/ Fluticasone (Advair 250/50 Diskus) 1 inh BID INH Last administered on 10/07/16 09:25; Admin Dose 1 INH; Start 09/20/16 at 09:00 Tiotropium [place] (Spiriva) 1 inh DAILY INH Last administered on 10/07/16 09: 28; Admin Dose 1 INH; Start 09/20/16 at 09:00 Dorzolamide/ Timolol (Cosopt) 1 drop BID LEFT EYE Last administered on 09:25; Admin Dose 1 DROP; Start 09/20/16 at 13:30 Latanoprost (Xalatan) 1 drop DAILY LEFT EYE Last administered on 10/07/16 09:33 ; Admin Dose 1 DROP; Start 09/20/16 at 13:30 IV Flush (NS 10 ml) 10 ml PRN PRN IV IV PROTOCOL; Start 09/21/16 at 17:30 Acetaminophen (Tylenol Liquid) 650 mg Q6H PRN NGT PAIN AND OR ELEVATED TEMP Last administered on 10/06/16 08:43; Admin Dose 650 MG; Start 09/22/16 at 00:20 Hydralazine HCl (Apresoline) 10 mg Q6H PRN IV for sbp>160 Last administered on 10/06/16 11:55; Admin Dose 10 MG; Start 09/27/16 at 08:00 Pantoprazole (Protonix Iv) 40 mg BID@06,18 IV Last administered on 10/07/16 17: 38; Admin Dose 40 MG; Start 09/30/16 at 06:00 Morphine Sulfate (morphine) 2 mg Q2H PRN IV pain Last administered on 10/06/16 12:45; Admin Dose 2 MG; Start 09/29/16 at 20:30 Sertraline HCl (Zoloft) 100 mg HS PO Last administered on 10/06/16 22:51; Admin Dose 100 MG; Start 09/29/16 at 23:30 Ondansetron HCl (Zofran Inj) 4 mg Q6H PRN IV NAUSEA AND/OR VOMITING Last administered on 10/05/16 07:48; Admin Dose 4 MG; Start 09/30/16 at 04:00 Ascorbic Acid (Vitamin C) 500 mg DAILY NGT Last administered on 10/07/16 09:24 ; Admin Dose 500 MG; Start 10/02/16 at 09:00 Ferrous Sulfate 325 mg 325 mg DAILY PO Last administered on 10/07/16 09:23; Admin Dose 325 MG; Start 10/01/16 at 17:25 Caspofungin 50 mg/ Sodium Chloride 250 ml @ 250 mls/hr Q24H IVPB Last administered on 10/06/16 23:05; Admin Dose 250 MLS/HR; Start 10/02/16 at 21:00 Ciprofloxacin/ Dextrose 200 ml @ 200 mls/hr Q12 IVPB Last administered on 09:23; Admin Dose 200 MLS/HR; Start 10/01/16 at 21:00 Metronidazole (Flagyl 500 Mg (Pmx)) 100 ml @ 100 mls/hr Q8 IVPB Last administered on 10/07/16 13:10; Admin Dose 100 MLS/HR; Start 10/01/16 at 22:00 Guaifenesin (Mucinex) 600 mg Q12 PO Last administered on 10/07/16 09:23; Admin Dose 600 MG; Start 10/01/16 at 21:30 Acetaminophen/ Hydrocodone Bitart ([place] (5/325)) 1 tab Q6H PRN PO PAIN Last administered on 10/06/16 14:16; Admin Dose 1 TAB; Start 10/02/16 at 05:30 Lorazepam (Ativan) 0.5 mg Q8H PRN IV ANXIETY; Start 10/04/16 at 12:30 Megestrol Acetate (Megace Susp) 800 mg DAILY PO Last administered on 10/07/16 09:23; Admin Dose 800 MG; Start 10/05/16 at 11:30 Amlodipine Besylate 2.5 mg 2.5 mg BID PO Last administered on 10/07/16 09:24; Admin Dose 2.5 MG; Start 10/06/16 at 21:00 Potassium Chloride/Dextrose/ Sod Cl (D5-1/2ns + KCl 20 Meq) 1,000 ml @ 100 mls/ hr Q10H IV ; Start 10/07/16 at 18:30 ELIZA DUNNE Oct 07, 2016 18:54
[2016-10-07] MEDS: D5W-0.45 NACL + KCL 20 MEQ 1,000 ML IV SCH (18:59)
[2016-10-07 19:00] VITALS: BP 135/68; RESP 19
[2016-10-07] MEDS: SERTRALINE 100 MG TAB PO SCH (21:33)
[2016-10-07] MEDS: CASPOFUNGIN 50 MG in SOD CHLORIDE 0.9% 250 ML IVPB SCH (22:10)
--- NOTE | 2016-10-07 22:33 | CONS ---
Date/Time of Note Date/Time of Note DATE: 10/07/16 TIME: 22:30 Assessment/Plan Assessment/Plan Additional Assessment/Plan 1. Sepsis 2/2 to # 2 2. Multiple intra-abdominal abscesses, status post CT-guided aspiration with catheter placement on 09/28/2016.Status post small bowel resection and abscess drainage with exploratory laparotomy on 09/20/2016. 2. Acute kidney injury secondary to acute tubular necrosis from sepsis 3. Acute hyperkalemia with metabolic acidosis likely secondary to acute kidney injury.- now resolved 4. Small bowel obstructions status post exploratory laparotomy and abdominal washout- on TPN currently 5. History of recent laparoscopic appendectomy. 6. History of hypertension 7. History of chronic obstructive pulmonary disease. 8. History of hypothyroidism. PLAN: s/p thoracentesis 800 cc drained, Pelvic CT did not show enough fluid on left pelvis to place a drain catheter K 3.4- continue current IVF with KCL on TPN IV abx as per ID making good urine will follow up Consultation Date/Type/Reason Admit Date/Time Sep 19, 2016 at 22:10 Initial Consult Date Sep Type of Consultation: NEPHROLOGY Reason for Consultation acute kidney injury, Hyperkalemia, Referring Provider: YAMILE LARA MD 24 HR Interval Summary Free Text/Dictation Cr normal, K 3.4 Exam/Review of Systems Vital Signs Vitals Vital Signs Date Time Temp Pulse Resp B/P Pulse Ox O2 Delivery O2 Flow Rate FiO2 10/07/16 20:55 2.0 10/07/16 19:00 98.4 96 19 135/68 97 10/07/16 12:59 Nasal Cannula Intake and Output 10/06/16 10/06/16 10/07/16 15:00 23:00 07:00 Intake Total 1830 ml 690 ml Output Total 900 ml 1500 ml Balance -900 ml 330 ml 690 ml Exam GENERAL: This is a well-developed, fragile, elderly woman who is alert, in no distress. HEENT: Head atraumatic, normocephalic. Sclerae anicteric. Buccal mucosa pink. NECK: Supple, trachea midline. CHEST: Rise symmetrical. Breath sounds diminished to bases. HEART: S1, S2. ABDOMEN: Soft. Bowel sounds present. EXTREMITIES: Without cyanosis. Results Result Diagram: 10/07/16 0454 10/07/16 0454 Results 24 hrs Laboratory Tests Test 10/07/16 04:54 Anion Gap 10 Basophils # 0.0 Basophils % 0.3 Blood Urea Nitrogen 13 Calcium Level 7.6 L Carbon Dioxide Level 28 Chloride Level 105 Creatinine 0.97 Eosinophils # 0.2 Eosinophils % 1.1 Glucose Level 82 # Hematocrit 30.7 L Hemoglobin 9.8 L Lymphocytes # 1.4 Lymphocytes % 9.6 L Magnesium Level 1.7 Mean Corpuscular Hemoglobin 28.5 L Mean Corpuscular Hemoglobin Concent 31.9 L Mean Corpuscular Volume 89.2 Mean Platelet Volume 9.1 Monocytes # 1.2 H Monocytes % 8.3 Neutrophils # 11.4 H Neutrophils % 79.9 H Nucleated Red Blood Cells # 0.0 Nucleated Red Blood Cells % 0.0 Phosphorus Level 2.8 Platelet Count 336 Potassium Level 3.4 L Red Blood Count 3.44 L Red Cell Distribution Width 15.7 H Sodium Level 140 White Blood Count 14.3 H Medications Medications Current Medications Salmeterol Xinafoate/ Fluticasone (Advair 250/50 Diskus) 1 inh BID INH Last administered on 10/07/16 21:34; Admin Dose 1 INH; Start 09/20/16 at 09:00 Dorzolamide/ Timolol (Cosopt) 1 drop BID LEFT EYE Last administered on 21:35; Admin Dose 1 DROP; Start 09/20/16 at 13:30 Latanoprost (Xalatan) 1 drop DAILY LEFT EYE Last administered on 10/07/16 09:33 ; Admin Dose 1 DROP; Start 09/20/16 at 13:30 IV Flush (NS 10 ml) 10 ml PRN PRN IV IV PROTOCOL; Start 09/21/16 at 17:30 Acetaminophen (Tylenol Liquid) 650 mg Q6H PRN NGT PAIN AND OR ELEVATED TEMP Last administered on 10/06/16 08:43; Admin Dose 650 MG; Start 09/22/16 at 00:20 Hydralazine HCl (Apresoline) 10 mg Q6H PRN IV for sbp>160 Last administered on 10/06/16 11:55; Admin Dose 10 MG; Start 09/27/16 at 08:00 Pantoprazole (Protonix Iv) 40 mg BID@,18 IV Last administered on 10/07/16 17: 38; Admin Dose 40 MG; Start 09/30/16 at 06:00 Morphine Sulfate (morphine) 2 mg Q2H PRN IV pain Last administered on 10/06/16 12:45; Admin Dose 2 MG; Start 09/29/16 at 20:30 Sertraline HCl (Zoloft) 100 mg HS PO Last administered on 10/07/16 21:33; Admin Dose 100 MG; Start 09/29/16 at 23:30 Ondansetron HCl (Zofran Inj) 4 mg Q6H PRN IV NAUSEA AND/OR VOMITING Last administered on 10/05/16 07:48; Admin Dose 4 MG; Start 09/30/16 at 04:00 Ascorbic Acid (Vitamin C) 500 mg DAILY NGT Last administered on 10/07/16 09:24 ; Admin Dose 500 MG; Start 10/02/16 at 09:00 Ferrous Sulfate 325 mg 325 mg DAILY PO Last administered on 10/07/16 09:23; Admin Dose 325 MG; Start 10/01/16 at 17:25 Caspofungin 50 mg/ Sodium Chloride 250 ml @ 250 mls/hr Q24H IVPB Last administered on 10/07/16 22:10; Admin Dose 250 MLS/HR; Start 10/02/16 at 21:00 Ciprofloxacin/ Dextrose 200 ml @ 200 mls/hr Q12 IVPB Last administered on 21:34; Admin Dose 200 MLS/HR; Start 10/01/16 at 21:00 Metronidazole (Flagyl 500 Mg (Pmx)) 100 ml @ 100 mls/hr Q8 IVPB Last administered on 10/07/16 21:34; Admin Dose 100 MLS/HR; Start 10/01/16 at 22:00 Guaifenesin (Mucinex) 600 mg Q12 PO Last administered on 10/07/16 21:33; Admin Dose 600 MG; Start 10/01/16 at 21:30 Acetaminophen/ Hydrocodone Bitart ([place] (5/325)) 1 tab Q6H PRN PO PAIN Last administered on 10/06/16 14:16; Admin Dose 1 TAB; Start 10/02/16 at 05:30 Lorazepam (Ativan) 0.5 mg Q8H PRN IV ANXIETY; Start 10/04/16 at 12:30 Megestrol Acetate (Megace Susp) 800 mg DAILY PO Last administered on 10/07/16 09:23; Admin Dose 800 MG; Start 10/05/16 at 11:30 Amlodipine Besylate 2.5 mg 2.5 mg BID PO Last administered on 10/07/16 21:34; Admin Dose 2.5 MG; Start 10/06/16 at 21:00 Potassium Chloride/Dextrose/ Sod Cl (D5-1/2ns + KCl 20 Meq) 1,000 ml @ 100 mls/ hr Q10H IV Last administered on 10/07/16 18:59; Admin Dose 100 MLS/HR; Start at 18:30 MADISYN MANUEL MD Oct 07, 2016 22:32
[2016-10-08] MEDS: LORAZEPAM 2 MG INJ IV PRN ×2 (00:07→23:23)
--- NOTE | 2016-10-08 01:57 | CONS ---
DATE OF ADMISSION: 09/19/2016 DATE OF CONSULTATION: 10/07/2016 REQUESTING PHYSICIAN: Dr. Ely. Dear Dr. Ely: Thank you for asking me to see this patient in urological consultation. HISTORY OF PRESENT ILLNESS: This is an 86-year-old female who initially underwent a laparoscopic appendectomy back in early September and after that she was in rehabilitation and then she was readmitted to the hospital because of bowel obstruction and she underwent another surgery and initially attempted to take care of it laparoscopically, but then she had to be opened and she underwent a small bowel resection x2 and she did have collection of fluid into her abdomen, which was drained percutaneously under CT guidance. The patient did have an indwelling Santos catheter, and when that was removed, the patient has not been able to urinate and she had to have a Santos catheter put back in and therefore a urological consultation was requested. The patient states that prior to her recent sickness she was able to urinate well at home and she never had any urinary incontinence, and there is no history of urinary retention; however, she was urinating frequently. She never had to use any diaper or Depends. PAST MEDICAL HISTORY: The other significant past medical history includes a history of hypertension. She has had a pleural effusion; she did have a thoracentesis. Also, she had acute kidney injury while in the hospital, but has recovered from it. She has had diastolic congestive heart failure and recent shock and small bowel obstruction with abscesses in the pelvis. The patient used to be a smoker. She also does have a history of hyperlipidemia and a history of COPD and hypothyroidism. SOCIAL HISTORY: The patient does not drink alcohol. There is no history of drug abuse. MEDICATIONS: Include: 1. Potassium chloride. 2. Amlodipine 2.5 mg twice a day. 3. Lasix 40 mg twice a day. 4. Alteplase 2 mg p.r.n. 5. Megace 800 mg daily. 6. Ativan 0.5 mg every 8 hours p.r.n. 7. Caspofungin IV every 24 hours. 8. Vitamin C 500 mg daily. 9. [place] for the pain. 10. Flagyl IV. 11. Mucinex every 12 hours p.o. 12. Cipro IV. 13. Ferrous sulfate 325 mg. 14. Protonix 40 mg. 15. Zofran 4 mg. 16. Sertraline 100 mg at bedtime. 17. Apresoline 10 mg p.r.n. 18. Morphine p.r.n. 19. Ambien p.r.n. 20. Eyedrops. 21. Advair b.i.d. 22. Tiotropium bromide. 23. Albuterol. 24. Ipratropium bromide. PHYSICAL EXAMINATION: VITAL SIGNS: Temperature is 98.8, pulse 100, respirations 20, blood pressure 138/66. GENERAL: Reveals an elderly female, 86 years old. She is weak and does not ambulate much. She is on a regular diet now and she does have also loose bowel movement. She is not feeling the urge to urinate when she has a bowel movement. ABDOMEN: Soft. She does have a scar in the lower abdomen. PELVIC: Revealed no mass and no discharge. EXTREMITIES: She does have edema in the right lower extremity; left lower extremity has no edema. LABORATORY DATA: Her CBC is showing a white count of 14.3, hemoglobin 9.8, hematocrit 30.7, platelet count 356,000. BUN is 13, creatinine 0.97, sodium 140 , potassium 3.4, chloride 105, CO2 28. The urinalysis was not done. Urine culture from 09/22 no growth after 48 hours. IMPRESSION: Urinary retention. Patient may have retention secondary to multiple factors, including side effect of medications that include her being on ipratropium bromide, tiotropium bromide as well. Also, the sertraline could be a factor as well and the Ambien and at the Ativan as well as the pain medications. Also, we will have to rule out urinary tract infection and therefore we will do a urine culture. The fact also that the patient is not much ambulating, that also, and the fact that she is weak, all these factors could cause her to have the retention. PLAN: I did stop all her tiotropium and the ipratropium, and we will send urine for culture. For now, keep the Santos catheter in. I need to see her a little bit more active and then we will take the catheter out and see if she is able to void. I am not going to start her on any urecholine at the present just to avoid any side effect. I will follow her urological problem with you. I do thank you for allowing me to help in her care. Dictated By: HOMERO HANLEY/VU Conf#: [id number] DID#: [id number] MTDD
[2016-10-08] MEDS: D5W-0.45 NACL + KCL 20 MEQ 1,000 ML IV SCH ×3 (04:30→14:03)
[2016-10-08] MEDS: PANTOPRAZOLE 40 MG INJ IV SCH ×2 (05:53→17:47)
[2016-10-08] MEDS: metroNIDAZOLE 500 MG/NS (PMX) 100 ML IVPB SCH ×3 (05:53→21:51)
[2016-10-08] MEDS: FUROSEMIDE 40 MG INJ IV SCH ×2 (06:01→17:47)
[2016-10-08 06:37] LABS: ADD SCAN DIFF NO
[2016-10-08 06:50] LABS: BASOPHIL # 0.1 10^3/ul (0.0-0.1); BASOPHILS % 0.4 % (0.0-2.0); EOSINOPHILS # 0.2 10^3/ul (0.0-0.5); EOSINOPHILS % 1.3 % (0.0-7.0); HEMATOCRIT 29.1 % (37.0-47.0); HEMOGLOBIN 9.1 g/dl (12.0-16.0); LYMPHOCYTES # 1.4 10^3/ul (0.8-2.9); LYMPHOCYTES % 11.1 % (15.0-51.0); MEAN CORPUSCULAR HEMOGLOBIN 28.3 pg (29.0-33.0); MEAN CORPUSCULAR HGB CONC 31.3 g/dl (32.0-37.0); MEAN CORPUSCULAR VOLUME 90.4 fl (82.0-101.0); MEAN PLATELET VOLUME 9.4 fl (7.4-10.4); MONOCYTES % 8.4 % (0.0-11.0); NEUTROPHIL # 9.5 10^3/ul (1.6-7.5); NEUTROPHILS % 78.1 % (39.0-77.0); PLATELET COUNT 333 10^3/UL (140-415); RED BLOOD COUNT 3.22 10^6/ul (4.20-5.40); RED CELL DISTRIBUTION WIDTH 15.6 % (11.5-14.5); WHITE BLOOD COUNT 12.2 10^3/ul (4.8-10.8)
[2016-10-08 07:14] LABS: POTASSIUM 3.5 mmol/L (3.5-5.1)
[2016-10-08 07:17] LABS: CREATININE 0.91 mg/dl (0.44-1.00); PHOSPHORUS 2.8 mg/dl (2.5-4.9)
[2016-10-08 07:18] LABS: CALCIUM 7.6 mg/dl (8.4-10.2); MAGNESIUM 1.8 mg/dl (1.7-2.5)
[2016-10-08 07:59] VITALS: BP 131/63; RESP 20
[2016-10-08] MEDS: MEGESTROL (40 MG/ML) 10ML CUP PO SCH (08:33)
[2016-10-08] MEDS: ASCORBIC ACID 500 MG TAB NGT SCH (08:33)
[2016-10-08] MEDS: LATANOPROST 0.005% 2.5 ML OPH LEFT EYE SCH (08:33)
[2016-10-08] MEDS: FERROUS SULFATE (EC) 325 MG TAB PO SCH (08:33)
[2016-10-08] MEDS: GUAIFENESIN LA 600 MG TABSR PO SCH ×2 (08:33→21:51)
[2016-10-08] MEDS: AMLODIPINE 2.5 MG TAB PO SCH ×2 (08:34→21:53)
[2016-10-08] MEDS: SALMETEROL/FLUTICASONE 250/50 INHA INH SCH ×2 (08:34→21:51)
[2016-10-08] MEDS: DORZOLAMIDE/TIMOLOL 10 ML OPH LEFT EYE SCH ×2 (08:34→21:52)
[2016-10-08] MEDS: CIPROFLOXACIN 400MG/D5W 200 ML IVPB SCH ×2 (08:40→21:51)
--- NOTE | 2016-10-08 09:31 | PN ---
DATE: 10/08/2016 SUBJECTIVE: Ms. Aguila is now postoperative day 19 from her small bowel resection. She states sh pradip is feeling better. She says her output is improving, but she is only eating about 10% of her meal s. She is having bowel movements. OBJECTIVE: She is currently afebrile. Vital signs stable. A Santos catheter was placed yesterday d ue to her urinary retention. She has had 3 liters of urine out. Her abdomen is soft, nontender, no ndistended. Her wound is clean, dry, and intact. LABORATORY DATA: Reveal a white count of 12, hematocrit of 29, and platelets of 333. Sodium 136, p otassium 3.5, chloride 102, CO2 27, BUN and creatinine 11 and 0.9, and glucose of 82. ASSESSMENT AND PLAN: Ms. Aguila is an 86-year-old female status post small bowel resection for pe rforated appendicitis. 1. Urology consult for urinary retention. We will place a catheter to leg bag so she is more ambul atory. 2. Ileus has resolved. Abdomen is benign. She is having bowel movements. Need to discuss the pos sibility of placement of a PEG with the patient as she is not tolerating p.o. TPN is really not an option at this point as it is just a temporizing method. 3. White count resolving. 4. The patient should be ready for discharge to SNF once her p.o. intake increases. Dictated By: TRISTAN MYLES/VU Conf#: [id number] DID#: [id number]
--- NOTE | 2016-10-08 11:23 | CONS ---
Date/Time of Note Date/Time of Note DATE: 10/08/16 TIME: 11:20 Assessment/Plan Assessment/Plan Additional Assessment/Plan 1. Sepsis 2/2 to # 2 2. Multiple intra-abdominal abscesses, status post CT-guided aspiration with catheter placement on 09/28/2016.Status post small bowel resection and abscess drainage with exploratory laparotomy on 09/20/2016. 2. Acute kidney injury secondary to acute tubular necrosis from sepsis 3. Acute hyperkalemia with metabolic acidosis likely secondary to acute kidney injury.- now resolved 4. Small bowel obstructions status post exploratory laparotomy and abdominal washout- on TPN currently 5. History of recent laparoscopic appendectomy. 6. History of hypertension 7. History of chronic obstructive pulmonary disease. 8. History of hypothyroidism. PLAN: was having urinary retention,s/p Urolgoy consult was though due to medications, atrovent stopped, cr and electrolytes stable, ileus resolved. s/p thoracentesis 800 cc drained, Pelvic CT did not show enough fluid on left pelvis to place a drain catheter on TPN IV abx as per ID making good urine will follow up Consultation Date/Type/Reason Admit Date/Time Sep 19, 2016 at 22:10 Initial Consult Date Sep Type of Consultation: NEPHROLOGY Reason for Consultation acute kidney injury, Hyperkalemia Referring Provider: YAMILE LARA MD 24 HR Interval Summary Free Text/Dictation was having urinary retention,s/p Urolgoy consult was though due to medications, atrovent stopped, cr and electrolytes stable, ileus resolved. Exam/Review of Systems Vital Signs Vitals Vital Signs Date Time Temp Pulse Resp B/P Pulse Ox O2 Delivery O2 Flow Rate FiO2 10/08/16 08:00 Nasal Cannula 3.0 10/08/16 07:59 97.4 94 20 131/63 96 Intake and Output 10/07/16 10/07/16 10/08/16 15:00 23:00 07:00 Intake Total 1530 ml 950 ml Output Total 1300 ml 2000 ml Balance 230 ml -1050 ml Exam GENERAL: This is a well-developed, fragile, elderly woman who is alert, in no distress. HEENT: Head atraumatic, normocephalic. Sclerae anicteric. Buccal mucosa pink. NECK: Supple, trachea midline. CHEST: Rise symmetrical. Breath sounds diminished to bases. HEART: S1, S2. ABDOMEN: Soft. Bowel sounds present. EXTREMITIES: Without cyanosis. Results Result Diagram: 10/08/165 10/08/165 Results 24 hrs Laboratory Tests Test 10/08/16 04:45 Anion Gap 11 Basophils # 0.1 Basophils % 0.4 Blood Urea Nitrogen 11 Calcium Level 7.6 L Carbon Dioxide Level 27 Chloride Level 102 Creatinine 0.91 Eosinophils # 0.2 Eosinophils % 1.3 Glucose Level 82 Hematocrit 29.1 L Hemoglobin 9.1 L Lymphocytes # 1.4 Lymphocytes % 11.1 L Magnesium Level 1.8 Mean Corpuscular Hemoglobin 28.3 L Mean Corpuscular Hemoglobin Concent 31.3 L Mean Corpuscular Volume 90.4 Mean Platelet Volume 9.4 Monocytes # 1.0 H Monocytes % 8.4 Neutrophils # 9.5 H Neutrophils % 78.1 H Nucleated Red Blood Cells # 0.0 Nucleated Red Blood Cells % 0.0 Phosphorus Level 2.8 Platelet Count 333 Potassium Level 3.5 Red Blood Count 3.22 L Red Cell Distribution Width 15.6 H Sodium Level 136 White Blood Count 12.2 H Medications Medications Current Medications Salmeterol Xinafoate/ Fluticasone (Advair 250/50 Diskus) 1 inh BID INH Last administered on 10/08/16 08:34; Admin Dose 1 INH; Start 09/20/16 at 09:00 Dorzolamide/ Timolol (Cosopt) 1 drop BID LEFT EYE Last administered on 08:34; Admin Dose 1 DROP; Start 09/20/16 at 13:30 Latanoprost (Xalatan) 1 drop DAILY LEFT EYE Last administered on 10/08/16 08:33 ; Admin Dose 1 DROP; Start 09/20/16 at 13:30 IV Flush (NS 10 ml) 10 ml PRN PRN IV IV PROTOCOL; Start 09/21/16 at 17:30 Acetaminophen (Tylenol Liquid) 650 mg Q6H PRN NGT PAIN AND OR ELEVATED TEMP Last administered on 10/06/16 08:43; Admin Dose 650 MG; Start 09/22/16 at 00:20 Hydralazine HCl (Apresoline) 10 mg Q6H PRN IV for sbp>160 Last administered on 10/06/16 11:55; Admin Dose 10 MG; Start 09/27/16 at 08:00 Pantoprazole (Protonix Iv) 40 mg BID@06,18 IV Last administered on 10/08/16 05: 53; Admin Dose 40 MG; Start 09/30/16 at 06:00 Morphine Sulfate (morphine) 2 mg Q2H PRN IV pain Last administered on 10/06/16 12:45; Admin Dose 2 MG; Start 09/29/16 at 20:30 Sertraline HCl (Zoloft) 100 mg HS PO Last administered on 10/07/16 21:33; Admin Dose 100 MG; Start 09/29/16 at 23:30 Ondansetron HCl (Zofran Inj) 4 mg Q6H PRN IV NAUSEA AND/OR VOMITING Last administered on 10/05/16 07:48; Admin Dose 4 MG; Start 09/30/16 at 04:00 Ascorbic Acid (Vitamin C) 500 mg DAILY NGT Last administered on 10/08/16 08:33 ; Admin Dose 500 MG; Start 10/02/16 at 09:00 Ferrous Sulfate 325 mg 325 mg DAILY PO Last administered on 10/08/16 08:33; Admin Dose 325 MG; Start 10/01/16 at 17:25 Caspofungin 50 mg/ Sodium Chloride 250 ml @ 250 mls/hr Q24H IVPB Last administered on 10/07/16 22:10; Admin Dose 250 MLS/HR; Start 10/02/16 at 21:00 Ciprofloxacin/ Dextrose 200 ml @ 200 mls/hr Q12 IVPB Last administered on 08:40; Admin Dose 200 MLS/HR; Start 10/01/16 at 21:00 Metronidazole (Flagyl 500 Mg (Pmx)) 100 ml @ 100 mls/hr Q8 IVPB Last administered on 10/08/16 05:53; Admin Dose 100 MLS/HR; Start 10/01/16 at 22:00 Guaifenesin (Mucinex) 600 mg Q12 PO Last administered on 10/08/16 08:33; Admin Dose 600 MG; Start 10/01/16 at 21:30 Acetaminophen/ Hydrocodone Bitart ([place] (5/325)) 1 tab Q6H PRN PO PAIN Last administered on 10/06/16 14:16; Admin Dose 1 TAB; Start 10/02/16 at 05:30 Lorazepam (Ativan) 0.5 mg Q8H PRN IV ANXIETY Last administered on 10/08/16 00: 07; Admin Dose 0.5 MG; Start 10/04/16 at 12:30 Megestrol Acetate (Megace Susp) 800 mg DAILY PO Last administered on 10/08/16 08:33; Admin Dose 800 MG; Start 10/05/16 at 11:30 Amlodipine Besylate 2.5 mg 2.5 mg BID PO Last administered on 10/08/16 08:34; Admin Dose 2.5 MG; Start 10/06/16 at 21:00 Potassium Chloride/Dextrose/ Sod Cl (D5-1/2ns + KCl 20 Meq) 1,000 ml @ 100 mls/ hr Q10H IV Last administered on 10/07/16 18:59; Admin Dose 100 MLS/HR; Start at 18:30 MADISYN MANUEL MD Oct 08, 2016 11:23
[2016-10-08] MEDS ORDERED: POTASSIUM CHLORIDE (SR) 20 MEQ TAB PO STA (12:30)
[2016-10-08] MEDS ORDERED: MAGNESIUM SULFATE 2 GM/50 ML 50 ML IVPB ONE (13:30)
--- NOTE | 2016-10-08 14:02 | CONS ---
Date/Time of Note Date/Time of Note DATE: 10/08/16 TIME: 14:00 Assessment/Plan Assessment/Plan Additional Assessment/Plan Small bowel obstruction with abdominal abscess status post repeat surgery Recent shock Acute blood loss anemia Diastolic congestive heart failure Acute appendicitis status post surgery Preserved ejection fraction Hypertension Acute kidney injury. Pleural effusion status post thoracentesis -Patient's respiratory status continues to improve. Maintain potassium above 4.0 and magnesium above 2.0, if continues to improve, titrate down IV diuretic regimen over the next 1-2 days. Blood pressure trend overall improved. Consultation Date/Type/Reason Admit Date/Time Sep 19, 2016 at 22:10 Type of Consultation: cv Referring Provider: YAMILE LARA MD 24 HR Interval Summary Free Text/Dictation Denies shortness of breath, feeling slightly better but feels weak Exam/Review of Systems Vital Signs Vitals Vital Signs Date Time Temp Pulse Resp B/P Pulse Ox O2 Delivery O2 Flow Rate FiO2 10/08/16 08:00 Nasal Cannula 3.0 10/08/16 07:59 97.4 94 20 131/63 96 Intake and Output 10/07/16 10/07/16 10/08/16 15:00 23:00 07:00 Intake Total 1530 ml 950 ml Output Total 1300 ml 2000 ml Balance 230 ml -1050 ml Exam Sitting in chair, eating lunch, no apparent distress Constitutional: alert, oriented Head: normocephalic Neck: supple Respiratory: other (Coarse breath sounds bilaterally, no wheezing) Cardiovascular: other (S1-S2), regular rate and rhythm Gastrointestinal: bowel sounds, non-tender, other (No guarding), soft Extremities: other (No significant edema, no cyanosis) Results Result Diagram: 10/08/16 0445 10/08/16 0445 Results 24 hrs Laboratory Tests Test 10/08/16 04:45 Anion Gap 11 Basophils # 0.1 Basophils % 0.4 Blood Urea Nitrogen 11 Calcium Level 7.6 L Carbon Dioxide Level 27 Chloride Level 102 Creatinine 0.91 Eosinophils # 0.2 Eosinophils % 1.3 Glucose Level 82 Hematocrit 29.1 L Hemoglobin 9.1 L Lymphocytes # 1.4 Lymphocytes % 11.1 L Magnesium Level 1.8 Mean Corpuscular Hemoglobin 28.3 L Mean Corpuscular Hemoglobin Concent 31.3 L Mean Corpuscular Volume 90.4 Mean Platelet Volume 9.4 Monocytes # 1.0 H Monocytes % 8.4 Neutrophils # 9.5 H Neutrophils % 78.1 H Nucleated Red Blood Cells # 0.0 Nucleated Red Blood Cells % 0.0 Phosphorus Level 2.8 Platelet Count 333 Potassium Level 3.5 Red Blood Count 3.22 L Red Cell Distribution Width 15.6 H Sodium Level 136 White Blood Count 12.2 H Medications Medications Current Medications Salmeterol Xinafoate/ Fluticasone (Advair 250/50 Diskus) 1 inh BID INH Last administered on 10/08/16 08:34; Admin Dose 1 INH; Start 09/20/16 at 09:00 Dorzolamide/ Timolol (Cosopt) 1 drop BID LEFT EYE Last administered on 08:34; Admin Dose 1 DROP; Start 09/20/16 at 13:30 Latanoprost (Xalatan) 1 drop DAILY LEFT EYE Last administered on 10/08/16 08:33 ; Admin Dose 1 DROP; Start 09/20/16 at 13:30 IV Flush (NS 10 ml) 10 ml PRN PRN IV IV PROTOCOL; Start 09/21/16 at 17:30 Acetaminophen (Tylenol Liquid) 650 mg Q6H PRN NGT PAIN AND OR ELEVATED TEMP Last administered on 10/06/16 08:43; Admin Dose 650 MG; Start 09/22/16 at 00:20 Hydralazine HCl (Apresoline) 10 mg Q6H PRN IV for sbp>160 Last administered on 10/06/16 11:55; Admin Dose 10 MG; Start 09/27/16 at 08:00 Pantoprazole (Protonix Iv) 40 mg BID@06,18 IV Last administered on 10/08/16 05: 53; Admin Dose 40 MG; Start 09/30/16 at 06:00 Morphine Sulfate (morphine) 2 mg Q2H PRN IV pain Last administered on 10/06/16 12:45; Admin Dose 2 MG; Start 09/29/16 at 20:30 Sertraline HCl (Zoloft) 100 mg HS PO Last administered on 10/07/16 21:33; Admin Dose 100 MG; Start 09/29/16 at 23:30 Ondansetron HCl (Zofran Inj) 4 mg Q6H PRN IV NAUSEA AND/OR VOMITING Last administered on 10/05/16 07:48; Admin Dose 4 MG; Start 09/30/16 at 04:00 Ascorbic Acid (Vitamin C) 500 mg DAILY NGT Last administered on 10/08/16 08:33 ; Admin Dose 500 MG; Start 10/02/16 at 09:00 Ferrous Sulfate 325 mg 325 mg DAILY PO Last administered on 10/08/16 08:33; Admin Dose 325 MG; Start 10/01/16 at 17:25 Caspofungin 50 mg/ Sodium Chloride 250 ml @ 250 mls/hr Q24H IVPB Last administered on 10/07/16 22:10; Admin Dose 250 MLS/HR; Start 10/02/16 at 21:00 Ciprofloxacin/ Dextrose 200 ml @ 200 mls/hr Q12 IVPB Last administered on 08:40; Admin Dose 200 MLS/HR; Start 10/01/16 at 21:00 Metronidazole (Flagyl 500 Mg (Pmx)) 100 ml @ 100 mls/hr Q8 IVPB Last administered on 10/08/16 12:56; Admin Dose 100 MLS/HR; Start 10/01/16 at 22:00 Guaifenesin (Mucinex) 600 mg Q12 PO Last administered on 10/08/16 08:33; Admin Dose 600 MG; Start 10/01/16 at 21:30 Acetaminophen/ Hydrocodone Bitart ([place] (5/325)) 1 tab Q6H PRN PO PAIN Last administered on 10/06/16 14:16; Admin Dose 1 TAB; Start 10/02/16 at 05:30 Lorazepam (Ativan) 0.5 mg Q8H PRN IV ANXIETY Last administered on 10/08/16 00: 07; Admin Dose 0.5 MG; Start 10/04/16 at 12:30 Megestrol Acetate (Megace Susp) 800 mg DAILY PO Last administered on 10/08/16 08:33; Admin Dose 800 MG; Start 10/05/16 at 11:30 Amlodipine Besylate 2.5 mg 2.5 mg BID PO Last administered on 10/08/16 08:34; Admin Dose 2.5 MG; Start 10/06/16 at 21:00 Potassium Chloride/Dextrose/ Sod Cl 1,000 ml @ 100 mls/hr Q10H IV Last administered on 10/08/16t 12:56; Admin Dose 100 MLS/HR; Start 10/07/16 at 18:30 Magnesium Sulfate (Magnesium Sulfate 2 Gm/50 ml) 50 ml @ 25 mls/hr ONCE ONCE IVPB ; Start 10/08/16 at 13:30; Stop 10/08/16 at 15:29 Taco Castillo DO Oct 08, 2016 14:02
--- NOTE | 2016-10-08 15:14 | PN ---
Date/Time of Note Date/Time of Note DATE: 10/08/16 TIME: 15:05 Assessment/Plan VTE Prophylaxis VTE Prophylaxis Intervention: SCD's Assessment/Plan Chief Complaint/Hosp Course 1. Small bowel obstruction s/p Recent Laproscopic Appendectomy Status post small bowel resection x2. Continue postsurgical care, pain management and IV antibiotics Diet as per general surgery recommendations, s/p TPN, cont Megace, pt starting to eat today, no need to re start TPN at this time Abdominal x-ray negative for obstruction 2. Sepsis-Improving 2/2 intra-abdominal abscess infectious disease following, continue Cipro and Flagyl Follow-up blood culture, continue aggressive IV fluids 3. Hyperkalemia Resolved status post IV fluid, nephrology has been consulted, follow-up electrolytes in a.m. 4 . Abdominal abscess x3 possibly 2/2 anastomotic leak as noted on recent CT Abd Status post drainage by interventional radiologist and Diagnostic laparoscopy, Exploratory laparotomy and abdominal washout. Status post CT-guided drainage by interventional radiologist 09/28/2016 , continue aggressive IV antibiotics CT Abd on 10/03 shows resolving abscess in the RLQ but persistent abscesses elsewhere that are mildly improved, at this point there are no plans for further CT guided drainage and previous drain removed Surgery aware of leak, no further intervention needed and cleared for DC per Surgery 3. COPD 4. Essential hypertension, stable 5. Acute anemia 2/2 Anemia of Chronic Dz vs slow GI bleed possibly from anastomotic leak Status post colonoscopy and endoscopy that showed no source of bleeding Negative bleeding scan 6. Pleural effusion s/p Thoracentesis-Respiratory status is now stable cont Lasix to 40 mg IV BID, Cards plan is wean down Diuretics in the next several days, Pulm on case 7. Acute renal insufficiency, likely secondary to dehydration versus anemia, follow-up renal panel in a.m. nephrology following-stable 8. Hypothyroidism 9. Urinary retention 2/2 Neurogenic Bladder-etiology is multifactorial -Santos inserted as PVR's had been high, Urology consult appreciated, tiotropium and the ipratropium were DC'd by Uro as it's felt that those meds may be exacerbating the problem Dispo- Now clear from surgical standpoint, pt is starting to eat today, anticipate DC to a SNF in 1-2 days if continues to eat, may need to go with a Santos if the Neurogenic bladder issue has not resolved PPx- SCD's Problems: Subjective 24 Hr Interval Summary Constitutional: no complaints Exam/Review of Systems Vital Signs Vitals Vital Signs Date Time Temp Pulse Resp B/P Pulse Ox O2 Delivery O2 Flow Rate FiO2 10/08/16 08:00 Nasal Cannula 3.0 10/08/16 07:59 97.4 94 20 131/63 96 Intake and Output 10/07/16 10/07/16 10/08/16 15:00 23:00 07:00 Intake Total 1530 ml 950 ml Output Total 1300 ml 2000 ml Balance 230 ml -1050 ml Exam Constitutional: alert Respiratory: clear to auscultation Cardiovascular: regular rate and rhythm Gastrointestinal: soft, No distended Musculoskeletal: nl extremities to inspection Results Result Diagram: 10/08/16 0445 10/08/165 Results 24 hrs Laboratory Tests Test 10/08/16 04:45 Anion Gap 11 Basophils # 0.1 Basophils % 0.4 Blood Urea Nitrogen 11 Calcium Level 7.6 L Carbon Dioxide Level 27 Chloride Level 102 Creatinine 0.91 Eosinophils # 0.2 Eosinophils % 1.3 Glucose Level 82 Hematocrit 29.1 L Hemoglobin 9.1 L Lymphocytes # 1.4 Lymphocytes % 11.1 L Magnesium Level 1.8 Mean Corpuscular Hemoglobin 28.3 L Mean Corpuscular Hemoglobin Concent 31.3 L Mean Corpuscular Volume 90.4 Mean Platelet Volume 9.4 Monocytes # 1.0 H Monocytes % 8.4 Neutrophils # 9.5 H Neutrophils % 78.1 H Nucleated Red Blood Cells # 0.0 Nucleated Red Blood Cells % 0.0 Phosphorus Level 2.8 Platelet Count 333 Potassium Level 3.5 Red Blood Count 3.22 L Red Cell Distribution Width 15.6 H Sodium Level 136 White Blood Count 12.2 H Medications Medications Current Medications Salmeterol Xinafoate/ Fluticasone (Advair 250/50 Diskus) 1 inh BID INH Last administered on 10/08/16 08:34; Admin Dose 1 INH; Start 09/20/16 at 09:00 Dorzolamide/ Timolol (Cosopt) 1 drop BID LEFT EYE Last administered on 08:34; Admin Dose 1 DROP; Start 09/20/16 at 13:30 Latanoprost (Xalatan) 1 drop DAILY LEFT EYE Last administered on 10/08/16 08:33 ; Admin Dose 1 DROP; Start 09/20/16 at 13:30 IV Flush (NS 10 ml) 10 ml PRN PRN IV IV PROTOCOL; Start 09/21/16 at 17:30 Acetaminophen (Tylenol Liquid) 650 mg Q6H PRN NGT PAIN AND OR ELEVATED TEMP Last administered on 10/06/16 08:43; Admin Dose 650 MG; Start 09/22/16 at 00:20 Hydralazine HCl (Apresoline) 10 mg Q6H PRN IV for sbp>160 Last administered on 10/06/16 11:55; Admin Dose 10 MG; Start 09/27/16 at 08:00 Pantoprazole (Protonix Iv) 40 mg BID@06,18 IV Last administered on 10/08/16 05: 53; Admin Dose 40 MG; Start 09/30/16 at 06:00 Morphine Sulfate (morphine) 2 mg Q2H PRN IV pain Last administered on 10/06/16 12:45; Admin Dose 2 MG; Start 09/29/16 at 20:30 Sertraline HCl (Zoloft) 100 mg HS PO Last administered on 10/07/16 21:33; Admin Dose 100 MG; Start 09/29/16 at 23:30 Ondansetron HCl (Zofran Inj) 4 mg Q6H PRN IV NAUSEA AND/OR VOMITING Last administered on 10/05/16 07:48; Admin Dose 4 MG; Start 09/30/16 at 04:00 Ascorbic Acid (Vitamin C) 500 mg DAILY NGT Last administered on 10/08/16 08:33 ; Admin Dose 500 MG; Start 10/02/16 at 09:00 Ferrous Sulfate 325 mg 325 mg DAILY PO Last administered on 10/08/16 08:33; Admin Dose 325 MG; Start 10/01/16 at 17:25 Caspofungin 50 mg/ Sodium Chloride 250 ml @ 250 mls/hr Q24H IVPB Last administered on 10/07/16 22:10; Admin Dose 250 MLS/HR; Start 10/02/16 at 21:00 Ciprofloxacin/ Dextrose 200 ml @ 200 mls/hr Q12 IVPB Last administered on 08:40; Admin Dose 200 MLS/HR; Start 10/01/16 at 21:00 Metronidazole (Flagyl 500 Mg (Pmx)) 100 ml @ 100 mls/hr Q8 IVPB Last administered on 10/08/16 12:56; Admin Dose 100 MLS/HR; Start 10/01/16 at 22:00 Guaifenesin (Mucinex) 600 mg Q12 PO Last administered on 10/08/16 08:33; Admin Dose 600 MG; Start 10/01/16 at 21:30 Acetaminophen/ Hydrocodone Bitart ([place] (5/325)) 1 tab Q6H PRN PO PAIN Last administered on 10/06/16 14:16; Admin Dose 1 TAB; Start 10/02/16 at 05:30 Lorazepam (Ativan) 0.5 mg Q8H PRN IV ANXIETY Last administered on 10/08/16 00: 07; Admin Dose 0.5 MG; Start 10/04/16 at 12:30 Megestrol Acetate (Megace Susp) 800 mg DAILY PO Last administered on 10/08/16 08:33; Admin Dose 800 MG; Start 10/05/16 at 11:30 Amlodipine Besylate 2.5 mg 2.5 mg BID PO Last administered on 10/08/16 08:34; Admin Dose 2.5 MG; Start 10/06/16 at 21:00 Potassium Chloride/Dextrose/ Sod Cl 1,000 ml @ 100 mls/hr Q10H IV Last administered on 10/08/16 12:56; Admin Dose 100 MLS/HR; Start 10/07/16 at 18:30 Magnesium Sulfate (Magnesium Sulfate 2 Gm/50 ml) 50 ml @ 25 mls/hr ONCE ONCE IVPB Last administered on 10/08/16 14:03; Admin Dose 25 MLS/HR; Start 10/08/16 at 13:30; Stop 10/08/16 at 15:29 ELIZA DUNNE Oct 08, 2016 15:14
--- NOTE | 2016-10-08 15:21 | CONS ---
Date/Time of Note Date/Time of Note DATE: 10/08/16 TIME: 15:20 Assessment/Plan Assessment/Plan Chief Complaint/Hosp Course SUBJECTIVE: No acute changes. Alert, feels better, no fevers, nad Abx: 1. Flagyl. 2. Cipro. 3. Cancidas. INDWELLINGS: PICC line placed on 09/21/2016, Santos. PHYSICAL EXAMINATION: GENERAL: This is a well-developed, fragile, elderly woman who is alert, in no distress. HEENT: Head atraumatic, normocephalic. Sclerae anicteric. Buccal mucosa pink. NECK: Supple, trachea midline. CHEST: Rise symmetrical. Breath sounds diminished to bases. HEART: S1, S2. ABDOMEN: Soft. Bowel sounds present. EXTREMITIES: Without cyanosis. ASSESSMENT: 1. Systemic inflammatory response syndrome with resolving leukocytosis. 2. Multiple intra-abdominal abscesses, status post exploratory laparotomy with small bowel resection and abscess drainage on 09/20/2016, and subsequently status post CT-guided drainage on 09/28/2016. 3. Bilateral pleural effusions, status post thoracentesis on 10/04/2016. 4. Anemia with bleeding scan and EGD have been negative. 5. Acute on chronic kidney disease. 6. Resolving ileus. 7. Urinary retention==> s/p Santos PLAN: Improving, continue present care/abx, f/u surgical rec-s [facility] staff/pt Problems: Consultation Date/Type/Reason Admit Date/Time Sep 19, 2016 at 22:10 Type of Consultation: ID Referring Provider: YAMILE LARA MD Exam/Review of Systems Vital Signs Vitals Vital Signs Date Time Temp Pulse Resp B/P Pulse Ox O2 Delivery O2 Flow Rate FiO2 10/08/16 08:00 Nasal Cannula 3.0 10/08/16 07:59 97.4 94 20 131/63 96 Intake and Output 10/07/16 10/07/16 10/08/16 15:00 23:00 07:00 Intake Total 1530 ml 950 ml Output Total 1300 ml 2000 ml Balance 230 ml -1050 ml Results Result Diagram: 10/08/16 0445 10/08/16 0445 Results 24 hrs Laboratory Tests Test 10/08/16 04:45 Anion Gap 11 Basophils # 0.1 Basophils % 0.4 Blood Urea Nitrogen 11 Calcium Level 7.6 L Carbon Dioxide Level 27 Chloride Level 102 Creatinine 0.91 Eosinophils # 0.2 Eosinophils % 1.3 Glucose Level 82 Hematocrit 29.1 L Hemoglobin 9.1 L Lymphocytes # 1.4 Lymphocytes % 11.1 L Magnesium Level 1.8 Mean Corpuscular Hemoglobin 28.3 L Mean Corpuscular Hemoglobin Concent 31.3 L Mean Corpuscular Volume 90.4 Mean Platelet Volume 9.4 Monocytes # 1.0 H Monocytes % 8.4 Neutrophils # 9.5 H Neutrophils % 78.1 H Nucleated Red Blood Cells # 0.0 Nucleated Red Blood Cells % 0.0 Phosphorus Level 2.8 Platelet Count 333 Potassium Level 3.5 Red Blood Count 3.22 L Red Cell Distribution Width 15.6 H Sodium Level 136 White Blood Count 12.2 H Medications Medications Current Medications Salmeterol Xinafoate/ Fluticasone (Advair 250/50 Diskus) 1 inh BID INH Last administered on 10/08/16 08:34; Admin Dose 1 INH; Start 09/20/16 at 09:00 Dorzolamide/ Timolol (Cosopt) 1 drop BID LEFT EYE Last administered on 08:34; Admin Dose 1 DROP; Start 09/20/16 at 13:30 Latanoprost (Xalatan) 1 drop DAILY LEFT EYE Last administered on 10/08/16 08:33 ; Admin Dose 1 DROP; Start 09/20/16 at 13:30 IV Flush (NS 10 ml) 10 ml PRN PRN IV IV PROTOCOL; Start 09/21/16 at 17:30 Acetaminophen (Tylenol Liquid) 650 mg Q6H PRN NGT PAIN AND OR ELEVATED TEMP Last administered on 10/06/16 08:43; Admin Dose 650 MG; Start 09/22/16 at 00:20 Hydralazine HCl (Apresoline) 10 mg Q6H PRN IV for sbp>160 Last administered on 10/06/16 11:55; Admin Dose 10 MG; Start 09/27/16 at 08:00 Pantoprazole (Protonix Iv) 40 mg BID@06,18 IV Last administered on 10/08/16 05: 53; Admin Dose 40 MG; Start 09/30/16 at 06:00 Morphine Sulfate (morphine) 2 mg Q2H PRN IV pain Last administered on 10/06/16 12:45; Admin Dose 2 MG; Start 09/29/16 at 20:30 Sertraline HCl (Zoloft) 100 mg HS PO Last administered on 10/07/16 21:33; Admin Dose 100 MG; Start 09/29/16 at 23:30 Ondansetron HCl (Zofran Inj) 4 mg Q6H PRN IV NAUSEA AND/OR VOMITING Last administered on 10/05/16 07:48; Admin Dose 4 MG; Start 09/30/16 at 04:00 Ascorbic Acid (Vitamin C) 500 mg DAILY NGT Last administered on 10/08/16 08:33 ; Admin Dose 500 MG; Start 10/02/16 at 09:00 Ferrous Sulfate 325 mg 325 mg DAILY PO Last administered on 10/08/16 08:33; Admin Dose 325 MG; Start 10/01/16 at 17:25 Caspofungin 50 mg/ Sodium Chloride 250 ml @ 250 mls/hr Q24H IVPB Last administered on 10/07/16 22:10; Admin Dose 250 MLS/HR; Start 10/02/16 at 21:00 Ciprofloxacin/ Dextrose 200 ml @ 200 mls/hr Q12 IVPB Last administered on 08:40; Admin Dose 200 MLS/HR; Start 10/01/16 at 21:00 Metronidazole (Flagyl 500 Mg (Pmx)) 100 ml @ 100 mls/hr Q8 IVPB Last administered on 10/08/16 12:56; Admin Dose 100 MLS/HR; Start 10/01/16 at 22:00 Guaifenesin (Mucinex) 600 mg Q12 PO Last administered on 10/08/16 08:33; Admin Dose 600 MG; Start 10/01/16 at 21:30 Acetaminophen/ Hydrocodone Bitart ([place] (5/325)) 1 tab Q6H PRN PO PAIN Last administered on 10/06/16 14:16; Admin Dose 1 TAB; Start 10/02/16 at 05:30 Lorazepam (Ativan) 0.5 mg Q8H PRN IV ANXIETY Last administered on 10/08/16 00: 07; Admin Dose 0.5 MG; Start 10/04/16 at 12:30 Megestrol Acetate (Megace Susp) 800 mg DAILY PO Last administered on 10/08/16 08:33; Admin Dose 800 MG; Start 10/05/16 at 11:30 Amlodipine Besylate 2.5 mg 2.5 mg BID PO Last administered on 10/08/16 08:34; Admin Dose 2.5 MG; Start 10/06/16 at 21:00 Potassium Chloride/Dextrose/ Sod Cl 1,000 ml @ 100 mls/hr Q10H IV Last administered on 10/08/16 12:56; Admin Dose 100 MLS/HR; Start 10/07/16 at 18:30 Magnesium Sulfate (Magnesium Sulfate 2 Gm/50 ml) 50 ml @ 25 mls/hr ONCE ONCE IVPB Last administered on 10/08/16 14:03; Admin Dose 25 MLS/HR; Start 10/08/16 at 13:30; Stop 10/08/16 at 15:29 YASMANY BECERRA NP Oct 08, 2016 15:21
--- NOTE | 2016-10-08 15:32 | CONS ---
Date/Time of Note Date/Time of Note DATE: 10/08/16 TIME: 15:31 Consult Date/Type/Reason Admit Date/Time Sep 19, 2016 at 22:10 Type of Consultation: Pulm Ordering Provider: YAMILE LARA MD Objective Vital Signs Date Time Temp Pulse Resp B/P Pulse Ox O2 Delivery O2 Flow Rate FiO2 10/08/16 08:00 Nasal Cannula 3.0 10/08/16 07:59 97.4 94 20 131/63 96 Intake and Output 10/07/16 10/07/16 10/08/16 15:00 23:00 07:00 Intake Total 1530 ml 950 ml Output Total 1300 ml 2000 ml Balance 230 ml -1050 ml HEENT: Neck supple; no JVD; no LAD CVS: RRR, S1 and S2 CHEST: Clear ABD: Soft, NT, + BS, drains in place EXT: No c/c/e Results/Medications Result Diagram: 10/08/16 0445 10/08/16 0445 Results 24 hrs Laboratory Tests Test 10/08/16 04:45 Anion Gap 11 Basophils # 0.1 Basophils % 0.4 Blood Urea Nitrogen 11 Calcium Level 7.6 L Carbon Dioxide Level 27 Chloride Level 102 Creatinine 0.91 Eosinophils # 0.2 Eosinophils % 1.3 Glucose Level 82 Hematocrit 29.1 L Hemoglobin 9.1 L Lymphocytes # 1.4 Lymphocytes % 11.1 L Magnesium Level 1.8 Mean Corpuscular Hemoglobin 28.3 L Mean Corpuscular Hemoglobin Concent 31.3 L Mean Corpuscular Volume 90.4 Mean Platelet Volume 9.4 Monocytes # 1.0 H Monocytes % 8.4 Neutrophils # 9.5 H Neutrophils % 78.1 H Nucleated Red Blood Cells # 0.0 Nucleated Red Blood Cells % 0.0 Phosphorus Level 2.8 Platelet Count 333 Potassium Level 3.5 Red Blood Count 3.22 L Red Cell Distribution Width 15.6 H Sodium Level 136 White Blood Count 12.2 H Medications Current Medications Salmeterol Xinafoate/ Fluticasone (Advair 250/50 Diskus) 1 inh BID INH Last administered on 10/08/16 08:34; Admin Dose 1 INH; Start 09/20/16 at 09:00 Dorzolamide/ Timolol (Cosopt) 1 drop BID LEFT EYE Last administered on 08:34; Admin Dose 1 DROP; Start 09/20/16 at 13:30 Latanoprost (Xalatan) 1 drop DAILY LEFT EYE Last administered on 10/08/16 08:33 ; Admin Dose 1 DROP; Start 09/20/16 at 13:30 IV Flush (NS 10 ml) 10 ml PRN PRN IV IV PROTOCOL; Start 09/21/16 at 17:30 Acetaminophen (Tylenol Liquid) 650 mg Q6H PRN NGT PAIN AND OR ELEVATED TEMP Last administered on 10/06/16 08:43; Admin Dose 650 MG; Start 09/22/16 at 00:20 Hydralazine HCl (Apresoline) 10 mg Q6H PRN IV for sbp>160 Last administered on 10/06/16 11:55; Admin Dose 10 MG; Start 09/27/16 at 08:00 Pantoprazole (Protonix Iv) 40 mg BID@06,18 IV Last administered on 10/08/16 05: 53; Admin Dose 40 MG; Start 09/30/16 at 06:00 Morphine Sulfate (morphine) 2 mg Q2H PRN IV pain Last administered on 10/06/16 12:45; Admin Dose 2 MG; Start 09/29/16 at 20:30 Sertraline HCl (Zoloft) 100 mg HS PO Last administered on 10/07/16 21:33; Admin Dose 100 MG; Start 09/29/16 at 23:30 Ondansetron HCl (Zofran Inj) 4 mg Q6H PRN IV NAUSEA AND/OR VOMITING Last administered on 10/05/16 07:48; Admin Dose 4 MG; Start 09/30/16 at 04:00 Ascorbic Acid (Vitamin C) 500 mg DAILY NGT Last administered on 10/08/16 08:33 ; Admin Dose 500 MG; Start 10/02/16 at 09:00 Ferrous Sulfate 325 mg 325 mg DAILY PO Last administered on 10/08/16 08:33; Admin Dose 325 MG; Start 10/01/16 at 17:25 Caspofungin 50 mg/ Sodium Chloride 250 ml @ 250 mls/hr Q24H IVPB Last administered on 10/07/16 22:10; Admin Dose 250 MLS/HR; Start 10/02/16 at 21:00 Ciprofloxacin/ Dextrose 200 ml @ 200 mls/hr Q12 IVPB Last administered on 08:40; Admin Dose 200 MLS/HR; Start 10/01/16 at 21:00 Metronidazole (Flagyl 500 Mg (Pmx)) 100 ml @ 100 mls/hr Q8 IVPB Last administered on 10/08/16 12:56; Admin Dose 100 MLS/HR; Start 10/01/16 at 22:00 Guaifenesin (Mucinex) 600 mg Q12 PO Last administered on 10/08/16 08:33; Admin Dose 600 MG; Start 10/01/16 at 21:30 Acetaminophen/ Hydrocodone Bitart ([place] (5/325)) 1 tab Q6H PRN PO PAIN Last administered on 10/06/16 14:16; Admin Dose 1 TAB; Start 10/02/16 at 05:30 Lorazepam (Ativan) 0.5 mg Q8H PRN IV ANXIETY Last administered on 10/08/16 00: 07; Admin Dose 0.5 MG; Start 10/04/16 at 12:30 Megestrol Acetate (Megace Susp) 800 mg DAILY PO Last administered on 10/08/16 08:33; Admin Dose 800 MG; Start 10/05/16 at 11:30 Amlodipine Besylate 2.5 mg 2.5 mg BID PO Last administered on 10/08/16 08:34; Admin Dose 2.5 MG; Start 10/06/16 at 21:00 Potassium Chloride/Dextrose/ Sod Cl (D5-1/2ns + KCl 20 Meq) 1,000 ml @ 100 mls/ hr Q10H IV Last administered on 10/08/16 12:56; Admin Dose 100 MLS/HR; Start at 18:30 Assessment/Plan Additional Assessment/Plan IMPRESSION: 1. Multiple intraabdominal abscesses, status post laparotomy and bowel resection. 2. Pleural effusion, status post thoracentesis. 3. Resolving ileus. 4. Acute on chronic kidney disease. 5. History of diastolic dysfunction. RECS: 1. Abx per ID 2. Resp status stable, no evidence of significant size effusions 3. CXR's prn 4. Anticipate d/c soon after trial of PO's REGINALDO TRUONG MD Oct 08, 2016 15:32
--- NOTE | 2016-10-08 16:15 | PN ---
DATE: 10/08/2016 SUBJECTIVE: Urinary retention. The patient is status post appendectomy and then a pelvic abscess a nd then small bowel resection. The patient has not been able to urinate after and required a Santos catheter. The patient herself today feels better and she denies any acute pain. OBJECTIVE: VITAL SIGNS: Her temperature is 97.4, pulse is 94, respirations 20, blood pressure 131/63. ABDOMEN: Soft. There is a scar from her recent surgery. The Santos catheter is draining well clear urine. Urine culture has been ordered yesterday and is still pending. LABORATORY DATA: The CBC shows a white count of 12.2, hemoglobin 9.1, hematocrit 29.1. The BUN is 11, creatinine 0.91. Electrolytes are normal. IMPRESSION: 1. Urinary retention that is most likely secondary to the side effect of the medication that she pop s been on and I did yesterday stop her tiotropium bromide as well as the albuterol ipratropium matteo rushing, and discussed with her today about the antidepressant Sertraline, she is on 100 mg, also, the pa in medications as well as the sleeping and anti-anxiety medications. All these could affect her madeline dder function. However, for now, we will just discontinue the Santos catheter tomorrow morning and s topped the tiotropium and albuterol ipratropium, and check her voiding and her postvoid residual usi ng the bladder scan. Hopefully she will be able to urinate. If she does not, then we may have to a lso try to decrease or stop the Sertraline and see if that would help as well. Dictated By: HOMERO HANLEY/VU Conf#: [id number] DID#: [id number]
--- NOTE | 2016-10-08 20:48 | CONS ---
Date/Time of Note Date/Time of Note DATE: 10/08/16 TIME: 20:45 Assessment/Plan Assessment/Plan Chief Complaint/Hosp Course IMPRESSION: 1. Gastrointestinal bleeding. bleeding scan negative,EGD negative,bleeding seems to have stopped 2. Multiple intra-abdominal abscesses, status post exploratory laparotomy with small bowel resection and abscess drainage on 09/20/2016, and subsequently status post CT-guided drainage on 09/28/2016. 3. Status post surgery for small-bowel obstruction, and also laparoscopic removal of the appendix. 4. Chronic obstructive pulmonary disease. 5. Hypertension. 6. Mild renal insufficiency. 7. Reduced appetite Plan monitor H&H and transfuse 2 units of pRBC if hgb less than 7.5 surgical f/u for wound care antibiotics per ID continue megace and encourage a PO diet Problems: Consultation Date/Type/Reason Admit Date/Time Sep 19, 2016 at 22:10 Type of Consultation: GI Referring Provider: YAMILE LARA MD 24 HR Interval Summary Free Text/Dictation The patient herself today feels better and she denies any acute pain. Exam/Review of Systems Vital Signs Vitals Vital Signs Date Time Temp Pulse Resp B/P Pulse Ox O2 Delivery O2 Flow Rate FiO2 10/08/16 08:00 Nasal Cannula 3.0 10/08/16 07:59 97.4 94 20 131/63 96 Intake and Output 10/07/16 10/07/16 10/08/16 15:00 23:00 07:00 Intake Total 1530 ml 950 ml Output Total 1300 ml 2000 ml Balance 230 ml -1050 ml Exam Constitutional: alert, oriented, well developed Psych: nl mood/affect, no complaints Head: atraumatic, normocephalic Eyes: EOMI, nl conjunctiva, nl lids, nl sclera ENMT: mucosa pink and moist, nl external ears & nose, nl lips & teeth, nl nasal mucosa & septum Neck: non-tender, supple Respiratory: clear to auscultation, normal air movement Cardiovascular: nl pulses, regular rate and rhythm Gastrointestinal: bowel sounds, non-tender, soft Results Result Diagram: 10/08/16 0445 10/08/165 Results 24 hrs Laboratory Tests Test 10/08/16 04:45 Anion Gap 11 Basophils # 0.1 Basophils % 0.4 Blood Urea Nitrogen 11 Calcium Level 7.6 L Carbon Dioxide Level 27 Chloride Level 102 Creatinine 0.91 Eosinophils # 0.2 Eosinophils % 1.3 Glucose Level 82 Hematocrit 29.1 L Hemoglobin 9.1 L Lymphocytes # 1.4 Lymphocytes % 11.1 L Magnesium Level 1.8 Mean Corpuscular Hemoglobin 28.3 L Mean Corpuscular Hemoglobin Concent 31.3 L Mean Corpuscular Volume 90.4 Mean Platelet Volume 9.4 Monocytes # 1.0 H Monocytes % 8.4 Neutrophils # 9.5 H Neutrophils % 78.1 H Nucleated Red Blood Cells # 0.0 Nucleated Red Blood Cells % 0.0 Phosphorus Level 2.8 Platelet Count 333 Potassium Level 3.5 Red Blood Count 3.22 L Red Cell Distribution Width 15.6 H Sodium Level 136 White Blood Count 12.2 H Medications Medications Current Medications Salmeterol Xinafoate/ Fluticasone (Advair 250/50 Diskus) 1 inh BID INH Last administered on 10/08/16 08:34; Admin Dose 1 INH; Start 09/20/16 at 09:00 Dorzolamide/ Timolol (Cosopt) 1 drop BID LEFT EYE Last administered on 08:34; Admin Dose 1 DROP; Start 09/20/16 at 13:30 Latanoprost (Xalatan) 1 drop DAILY LEFT EYE Last administered on 10/08/16 08:33 ; Admin Dose 1 DROP; Start 09/20/16 at 13:30 IV Flush (NS 10 ml) 10 ml PRN PRN IV IV PROTOCOL; Start 09/21/16 at 17:30 Acetaminophen (Tylenol Liquid) 650 mg Q6H PRN NGT PAIN AND OR ELEVATED TEMP Last administered on 10/06/16 08:43; Admin Dose 650 MG; Start 09/22/16 at 00:20 Hydralazine HCl (Apresoline) 10 mg Q6H PRN IV for sbp>160 Last administered on 10/06/16 11:55; Admin Dose 10 MG; Start 09/27/16 at 08:00 Pantoprazole (Protonix Iv) 40 mg BID@06,18 IV Last administered on 10/08/16 17: 47; Admin Dose 40 MG; Start 09/30/16 at 06:00 Morphine Sulfate (morphine) 2 mg Q2H PRN IV pain Last administered on 10/06/16 12:45; Admin Dose 2 MG; Start 09/29/16 at 20:30 Sertraline HCl (Zoloft) 100 mg HS PO Last administered on 10/07/16 21:33; Admin Dose 100 MG; Start 09/29/16 at 23:30 Ondansetron HCl (Zofran Inj) 4 mg Q6H PRN IV NAUSEA AND/OR VOMITING Last administered on 10/05/16 07:48; Admin Dose 4 MG; Start 09/30/16 at 04:00 Ascorbic Acid (Vitamin C) 500 mg DAILY NGT Last administered on 10/08/16 08:33 ; Admin Dose 500 MG; Start 10/02/16 at 09:00 Ferrous Sulfate 325 mg 325 mg DAILY PO Last administered on 10/08/16 08:33; Admin Dose 325 MG; Start 10/01/16 at 17:25 Caspofungin 50 mg/ Sodium Chloride 250 ml @ 250 mls/hr Q24H IVPB Last administered on 10/07/16 22:10; Admin Dose 250 MLS/HR; Start 10/02/16 at 21:00 Ciprofloxacin/ Dextrose 200 ml @ 200 mls/hr Q12 IVPB Last administered on 08:40; Admin Dose 200 MLS/HR; Start 10/01/16 at 21:00 Metronidazole (Flagyl 500 Mg (Pmx)) 100 ml @ 100 mls/hr Q8 IVPB Last administered on 10/08/16 12:56; Admin Dose 100 MLS/HR; Start 10/01/16 at 22:00 Guaifenesin (Mucinex) 600 mg Q12 PO Last administered on 10/08/16 08:33; Admin Dose 600 MG; Start 10/01/16 at 21:30 Acetaminophen/ Hydrocodone Bitart ([place] (5/325)) 1 tab Q6H PRN PO PAIN Last administered on 10/06/16 14:16; Admin Dose 1 TAB; Start 10/02/16 at 05:30 Lorazepam (Ativan) 0.5 mg Q8H PRN IV ANXIETY Last administered on 10/08/16 00: 07; Admin Dose 0.5 MG; Start 10/04/16 at 12:30 Megestrol Acetate (Megace Susp) 800 mg DAILY PO Last administered on 10/08/16 08:33; Admin Dose 800 MG; Start 10/05/16 at 11:30 Amlodipine Besylate 2.5 mg 2.5 mg BID PO Last administered on 10/08/16 08:34; Admin Dose 2.5 MG; Start 10/06/16 at 21:00 Potassium Chloride/Dextrose/ Sod Cl (D5-1/2ns + KCl 20 Meq) 1,000 ml @ 100 mls/ hr Q10H IV Last administered on 10/08/16 12:56; Admin Dose 100 MLS/HR; Start at 18:30 LEO CEDENO MD Oct 08, 2016 20:48
[2016-10-08 21:43] VITALS: BP 140/65; RESP 16
[2016-10-08] MEDS: SERTRALINE 100 MG TAB PO SCH (21:51)
[2016-10-08] MEDS: CASPOFUNGIN 50 MG in SOD CHLORIDE 0.9% 250 ML IVPB SCH (21:51)
[2016-10-08] MEDS: ZOLPIDEM 5 MG TAB PO PRN (22:53)
[2016-10-09] MEDS: D5W-0.45 NACL + KCL 20 MEQ 1,000 ML IV SCH ×4 (00:30→21:35)
[2016-10-09] MEDS: metroNIDAZOLE 500 MG/NS (PMX) 100 ML IVPB SCH ×3 (06:27→21:21)
[2016-10-09] MEDS: PANTOPRAZOLE 40 MG INJ IV SCH ×2 (06:27→17:42)
[2016-10-09] MEDS: FUROSEMIDE 40 MG INJ IV SCH ×2 (06:29→17:42)
[2016-10-09 07:13] LABS: ADD SCAN DIFF NO
[2016-10-09 07:23] LABS: BASOPHIL # 0.1 10^3/ul (0.0-0.1); BASOPHILS % 0.4 % (0.0-2.0); EOSINOPHILS # 0.2 10^3/ul (0.0-0.5); EOSINOPHILS % 1.2 % (0.0-7.0); HEMATOCRIT 33.4 % (37.0-47.0); HEMOGLOBIN 10.6 g/dl (12.0-16.0); LYMPHOCYTES # 1.6 10^3/ul (0.8-2.9); LYMPHOCYTES % 11.7 % (15.0-51.0); MEAN CORPUSCULAR HEMOGLOBIN 28.1 pg (29.0-33.0); MEAN CORPUSCULAR HGB CONC 31.7 g/dl (32.0-37.0); MEAN CORPUSCULAR VOLUME 88.6 fl (82.0-101.0); MEAN PLATELET VOLUME 9.2 fl (7.4-10.4); MONOCYTE # 1.2 10^3/ul (0.3-0.9); MONOCYTES % 8.6 % (0.0-11.0); NEUTROPHIL # 10.5 10^3/ul (1.6-7.5); NEUTROPHILS % 77.7 % (39.0-77.0); PLATELET COUNT 350 10^3/UL (140-415); RED BLOOD COUNT 3.77 10^6/ul (4.20-5.40); RED CELL DISTRIBUTION WIDTH 15.6 % (11.5-14.5); WHITE BLOOD COUNT 13.5 10^3/ul (4.8-10.8)
[2016-10-09 07:38] LABS: POTASSIUM 3.8 mmol/L (3.5-5.1)
[2016-10-09 07:40] VITALS: BP 145/70; RESP 18
[2016-10-09 07:41] LABS: CREATININE 0.86 mg/dl (0.44-1.00)
[2016-10-09] MEDS: GUAIFENESIN LA 600 MG TABSR PO SCH ×2 (08:32→21:21)
[2016-10-09] MEDS: ASCORBIC ACID 500 MG TAB NGT SCH (08:32)
[2016-10-09] MEDS: FERROUS SULFATE (EC) 325 MG TAB PO SCH (08:32)
[2016-10-09] MEDS: AMLODIPINE 2.5 MG TAB PO SCH ×2 (08:32→21:21)
[2016-10-09] MEDS: CIPROFLOXACIN 400MG/D5W 200 ML IVPB SCH ×2 (08:33→21:21)
[2016-10-09] MEDS: LATANOPROST 0.005% 2.5 ML OPH LEFT EYE SCH (08:33)
[2016-10-09] MEDS: DORZOLAMIDE/TIMOLOL 10 ML OPH LEFT EYE SCH ×2 (08:33→21:22)
[2016-10-09] MEDS: MEGESTROL (40 MG/ML) 10ML CUP PO SCH (08:33)
[2016-10-09] MEDS: SALMETEROL/FLUTICASONE 250/50 INHA INH SCH ×2 (08:34→21:22)
--- NOTE | 2016-10-09 10:44 | CONS ---
Date/Time of Note Date/Time of Note DATE: 10/09/16 TIME: 10:41 Assessment/Plan Assessment/Plan Additional Assessment/Plan 1. Sepsis 2/2 to # 2 2. Multiple intra-abdominal abscesses, status post CT-guided aspiration with catheter placement on 09/28/2016.Status post small bowel resection and abscess drainage with exploratory laparotomy on 09/20/2016. 2. Acute kidney injury secondary to acute tubular necrosis from sepsis 3. Acute hyperkalemia with metabolic acidosis likely secondary to acute kidney injury.- now resolved 4. Small bowel obstructions status post exploratory laparotomy and abdominal washout- on TPN currently 5. History of recent laparoscopic appendectomy. 6. History of hypertension 7. History of chronic obstructive pulmonary disease. 8. History of hypothyroidism. PLAN: was having urinary retention,s/p Urolgoy consult was though due to medications, atrovent stopped, cr and electrolytes stable, ileus resolved. s/p thoracentesis 10/04/16- 800 cc drained, Pelvic CT did not show enough fluid on left pelvis to place a drain catheter on TPN IV abx as per ID making good urine will follow up Consultation Date/Type/Reason Admit Date/Time Sep 19, 2016 at 22:10 Initial Consult Date Sep Type of Consultation: NEPHROLOGY Reason for Consultation acute Kidney Injury, Hyperkalemia Referring Provider: YAMILE LARA MD 24 HR Interval Summary Free Text/Dictation creatinine stable, Hb stable,electrolytes stable Exam/Review of Systems Vital Signs Vitals Vital Signs Date Time Temp Pulse Resp B/P Pulse Ox O2 Delivery O2 Flow Rate FiO2 10/09/16 07:40 98.0 103 18 145/70 92 10/09/16 01:13 3.0 10/08/16 20:00 Nasal Cannula Intake and Output 10/08/16 10/08/16 10/09/16 15:00 23:00 07:00 Intake Total 600 ml 1790 ml 1150 ml Output Total 3375 ml 1000 ml Balance 600 ml -1585 ml 150 ml Exam GENERAL: This is a well-developed, fragile, elderly woman who is alert, in no distress. HEENT: Head atraumatic, normocephalic. Sclerae anicteric. Buccal mucosa pink. NECK: Supple, trachea midline. CHEST: Rise symmetrical. Breath sounds diminished to bases. HEART: S1, S2. ABDOMEN: Soft. Bowel sounds present. EXTREMITIES: Without cyanosis. Results Result Diagram: 10/09/16 0700 10/09/16 0700 Results 24 hrs Laboratory Tests Test 10/09/16 07:00 Anion Gap 10 Basophils # 0.1 Basophils % 0.4 Blood Urea Nitrogen 9 Calcium Level 8.0 L Carbon Dioxide Level 29 Chloride Level 103 Creatinine 0.86 Eosinophils # 0.2 Eosinophils % 1.2 Glucose Level 88 Hematocrit 33.4 L Hemoglobin 10.6 L Lymphocytes # 1.6 Lymphocytes % 11.7 L Mean Corpuscular Hemoglobin 28.1 L Mean Corpuscular Hemoglobin Concent 31.7 L Mean Corpuscular Volume 88.6 Mean Platelet Volume 9.2 Monocytes # 1.2 H Monocytes % 8.6 Neutrophils # 10.5 H Neutrophils % 77.7 H Nucleated Red Blood Cells # 0.0 Nucleated Red Blood Cells % 0.0 Platelet Count 350 Potassium Level 3.8 Red Blood Count 3.77 L Red Cell Distribution Width 15.6 H Sodium Level 138 White Blood Count 13.5 H Medications Medications Current Medications Salmeterol Xinafoate/ Fluticasone (Advair 250/50 Diskus) 1 inh BID INH Last administered on 10/09/16 08:34; Admin Dose 1 INH; Start 09/20/16 at 09:00 Dorzolamide/ Timolol (Cosopt) 1 drop BID LEFT EYE Last administered on 08:33; Admin Dose 1 DROP; Start 09/20/16 at 13:30 Latanoprost (Xalatan) 1 drop DAILY LEFT EYE Last administered on 10/09/16 08:33 ; Admin Dose 1 DROP; Start 09/20/16 at 13:30 IV Flush (NS 10 ml) 10 ml PRN PRN IV IV PROTOCOL; Start 09/21/16 at 17:30 Acetaminophen (Tylenol Liquid) 650 mg Q6H PRN NGT PAIN AND OR ELEVATED TEMP Last administered on 10/06/16 08:43; Admin Dose 650 MG; Start 09/22/16 at 00:20 Hydralazine HCl (Apresoline) 10 mg Q6H PRN IV for sbp>160 Last administered on 10/06/16 11:55; Admin Dose 10 MG; Start 09/27/16 at 08:00 Pantoprazole (Protonix Iv) 40 mg BID@06,18 IV Last administered on 10/09/16 06: 27; Admin Dose 40 MG; Start 09/30/16 at 06:00 Morphine Sulfate (morphine) 2 mg Q2H PRN IV pain Last administered on 10/06/16 12:45; Admin Dose 2 MG; Start 09/29/16 at 20:30 Sertraline HCl (Zoloft) 100 mg HS PO Last administered on 10/08/16 21:51; Admin Dose 100 MG; Start 09/29/16 at 23:30 Ondansetron HCl (Zofran Inj) 4 mg Q6H PRN IV NAUSEA AND/OR VOMITING Last administered on 10/05/16 07:48; Admin Dose 4 MG; Start 09/30/16 at 04:00 Ascorbic Acid (Vitamin C) 500 mg DAILY NGT Last administered on 10/09/16 08:32 ; Admin Dose 500 MG; Start 10/02/16 at 09:00 Ferrous Sulfate 325 mg 325 mg DAILY PO Last administered on 10/09/16 08:32; Admin Dose 325 MG; Start 10/01/16 at 17:25 Caspofungin 50 mg/ Sodium Chloride 250 ml @ 250 mls/hr Q24H IVPB Last administered on 10/08/16 21:51; Admin Dose 250 MLS/HR; Start 10/02/16 at 21:00 Ciprofloxacin/ Dextrose 200 ml @ 200 mls/hr Q12 IVPB Last administered on 08:33; Admin Dose 200 MLS/HR; Start 10/01/16 at 21:00 Metronidazole (Flagyl 500 Mg (Pmx)) 100 ml @ 100 mls/hr Q8 IVPB Last administered on 10/09/16 06:27; Admin Dose 100 MLS/HR; Start 10/01/16 at 22:00 Guaifenesin (Mucinex) 600 mg Q12 PO Last administered on 10/09/16 08:32; Admin Dose 600 MG; Start 10/01/16 at 21:30 Acetaminophen/ Hydrocodone Bitart ([place] (5/325)) 1 tab Q6H PRN PO PAIN Last administered on 10/06/16 14:16; Admin Dose 1 TAB; Start 10/02/16 at 05:30 Lorazepam (Ativan) 0.5 mg Q8H PRN IV ANXIETY Last administered on 10/08/16 23: 23; Admin Dose 0.5 MG; Start 10/04/16 at 12:30 Megestrol Acetate (Megace Susp) 800 mg DAILY PO Last administered on 10/09/16 08:33; Admin Dose 800 MG; Start 10/05/16 at 11:30 Amlodipine Besylate 2.5 mg 2.5 mg BID PO Last administered on 10/09/16 08:32; Admin Dose 2.5 MG; Start 10/06/16 at 21:00 Potassium Chloride/Dextrose/ Sod Cl (D5-1/2ns + KCl 20 Meq) 1,000 ml @ 100 mls/ hr Q10H IV Last administered on 10/08/16 12:56; Admin Dose 100 MLS/HR; Start at 18:30 MADISYN MANUEL MD Oct 09, 2016 10:43
--- NOTE | 2016-10-09 12:02 | PN ---
Date/Time of Note Date/Time of Note DATE: 10/09/16 TIME: 11:58 Assessment/Plan VTE Prophylaxis VTE Prophylaxis Intervention: SCD's Lines/Catheters IV Catheter Type (from Nrs): PICC Line Central line still needed: Yes Urinary Cath still in place: No Assessment/Plan Chief Complaint/Hosp Course Assessment/Plan 1. Small bowel obstruction s/p Recent Laproscopic Appendectomy Status post small bowel resection x2. Continue postsurgical care, pain management and IV antibiotics Diet as per general surgery recommendations, encourage p.o. intake Abdominal x-ray negative for obstruction 2. Sepsis Likely secondary to intra-abdominal abscess and postoperatively infectious disease doctor has been consulted, continue Zosyn and Flagyl continue aggressive IV fluids 3. Hyperkalemia Resolved status post IV fluid, nephrology has been consulted, follow-up electrolytes in a.m. 4 . Abdominal abscess x3 . Status post drainage by interventional radiologist and Diagnostic laparoscopy, Exploratory laparotomy and abdominal washout. Status post CT-guided drainage by interventional radiologist 09/28/2016 , continue aggressive IV antibiotics Follow-up with general surgery recommendations 3. COPD 4. Essential hypertension, stable 5. Acute anemia, questionable GI bleed, status post transfusion of packed red blood cell, follow-up CBC in a.m. Status post colonoscopy and endoscopy Negative bleeding scan 6. Concerning for possible anastomotic leak in this location at small bowel anastomosis in the periumbilical abdomen, new when compared to the prior CT, General surgery has been notified, follow the recommendations No surgical intervention recommended at this time 7. Pleural effusion, start Lasix, status post thoracocentesis , continue IV antibiotics, pulmonology has been consulted 8. Acute renal insufficiency, resolved, nephrology has been consulted 9. Hypothyroidism 10 . Debility, continue physical therapy We will continue monitor patient closely for recommendation management treatment as clinical course Problems: Subjective 24 Hr Interval Summary Free Text/Dictation Patient complains of having dysuria and lower abdominal discomfort Has been having difficulty with urination Minimal p.o. intake Exam/Review of Systems Vital Signs Vitals Vital Signs Date Time Temp Pulse Resp B/P Pulse Ox O2 Delivery O2 Flow Rate FiO2 10/09/16 07:40 98.0 103 18 145/70 92 10/09/16 01:13 3.0 10/08/16 20:00 Nasal Cannula Intake and Output 10/08/16 10/08/16 10/09/16 15:00 23:00 07:00 Intake Total 600 ml 1790 ml 1150 ml Output Total 3375 ml 1000 ml Balance 600 ml -1585 ml 150 ml Exam General: The patient is well-developed, Not in acute distress. HEENT: Atraumatic, normocephalic. The pupils are equal and round . Neck: Supple with full range of motion. Chest: Normal expansion of the thorax during inspiration Lungs: Clear to auscultation bilaterally Heart: Normal S1-S2, Regular rhythm and rate. Abdomen: Soft , nontender, nondistended , bowel sounds are present. Extremities: Normal to inspection, no edema no cyanosis Neurologic: Normal mental status,The patient is awake, alert and oriented . Results Result Diagram: 10/09/16 0700 10/09/16 0700 Results 24 hrs Laboratory Tests Test 10/09/16 07:00 Anion Gap 10 Basophils # 0.1 Basophils % 0.4 Blood Urea Nitrogen 9 Calcium Level 8.0 L Carbon Dioxide Level 29 Chloride Level 103 Creatinine 0.86 Eosinophils # 0.2 Eosinophils % 1.2 Glucose Level 88 Hematocrit 33.4 L Hemoglobin 10.6 L Lymphocytes # 1.6 Lymphocytes % 11.7 L Mean Corpuscular Hemoglobin 28.1 L Mean Corpuscular Hemoglobin Concent 31.7 L Mean Corpuscular Volume 88.6 Mean Platelet Volume 9.2 Monocytes # 1.2 H Monocytes % 8.6 Neutrophils # 10.5 H Neutrophils % 77.7 H Nucleated Red Blood Cells # 0.0 Nucleated Red Blood Cells % 0.0 Platelet Count 350 Potassium Level 3.8 Red Blood Count 3.77 L Red Cell Distribution Width 15.6 H Sodium Level 138 White Blood Count 13.5 H Medications Medications Current Medications Salmeterol Xinafoate/ Fluticasone (Advair 250/50 Diskus) 1 inh BID INH Last administered on 10/09/16 08:34; Admin Dose 1 INH; Start 09/20/16 at 09:00 Dorzolamide/ Timolol (Cosopt) 1 drop BID LEFT EYE Last administered on 08:33; Admin Dose 1 DROP; Start 09/20/16 at 13:30 Latanoprost (Xalatan) 1 drop DAILY LEFT EYE Last administered on 10/09/16 08:33 ; Admin Dose 1 DROP; Start 09/20/16 at 13:30 IV Flush (NS 10 ml) 10 ml PRN PRN IV IV PROTOCOL; Start 09/21/16 at 17:30 Acetaminophen (Tylenol Liquid) 650 mg Q6H PRN NGT PAIN AND OR ELEVATED TEMP Last administered on 10/06/16 08:43; Admin Dose 650 MG; Start 09/22/16 at 00:20 Hydralazine HCl (Apresoline) 10 mg Q6H PRN IV for sbp>160 Last administered on 10/06/16 11:55; Admin Dose 10 MG; Start 09/27/16 at 08:00 Pantoprazole (Protonix Iv) 40 mg BID@06,18 IV Last administered on 10/09/16 06: 27; Admin Dose 40 MG; Start 09/30/16 at 06:00 Morphine Sulfate (morphine) 2 mg Q2H PRN IV pain Last administered on 10/06/16 12:45; Admin Dose 2 MG; Start 09/29/16 at 20:30 Sertraline HCl (Zoloft) 100 mg HS PO Last administered on 10/08/16 21:51; Admin Dose 100 MG; Start 09/29/16 at 23:30 Ondansetron HCl (Zofran Inj) 4 mg Q6H PRN IV NAUSEA AND/OR VOMITING Last administered on 10/05/16 07:48; Admin Dose 4 MG; Start 09/30/16 at 04:00 Ascorbic Acid (Vitamin C) 500 mg DAILY NGT Last administered on 10/09/16 08:32 ; Admin Dose 500 MG; Start 10/02/16 at 09:00 Ferrous Sulfate 325 mg 325 mg DAILY PO Last administered on 10/09/16 08:32; Admin Dose 325 MG; Start 10/01/16 at 17:25 Caspofungin 50 mg/ Sodium Chloride 250 ml @ 250 mls/hr Q24H IVPB Last administered on 10/08/16 21:51; Admin Dose 250 MLS/HR; Start 10/02/16 at 21:00 Ciprofloxacin/ Dextrose 200 ml @ 200 mls/hr Q12 IVPB Last administered on 08:33; Admin Dose 200 MLS/HR; Start 10/01/16 at 21:00 Metronidazole (Flagyl 500 Mg (Pmx)) 100 ml @ 100 mls/hr Q8 IVPB Last administered on 10/09/16 06:27; Admin Dose 100 MLS/HR; Start 10/01/16 at 22:00 Guaifenesin (Mucinex) 600 mg Q12 PO Last administered on 10/09/16 08:32; Admin Dose 600 MG; Start 10/01/16 at 21:30 Acetaminophen/ Hydrocodone Bitart ([place] (5/325)) 1 tab Q6H PRN PO PAIN Last administered on 10/06/16 14:16; Admin Dose 1 TAB; Start 10/02/16 at 05:30 Lorazepam (Ativan) 0.5 mg Q8H PRN IV ANXIETY Last administered on 10/08/16 23: 23; Admin Dose 0.5 MG; Start 10/04/16 at 12:30 Megestrol Acetate (Megace Susp) 800 mg DAILY PO Last administered on 10/09/16 08:33; Admin Dose 800 MG; Start 10/05/16 at 11:30 Amlodipine Besylate 2.5 mg 2.5 mg BID PO Last administered on 10/09/16 08:32; Admin Dose 2.5 MG; Start 10/06/16 at 21:00 Potassium Chloride/Dextrose/ Sod Cl (D5-1/2ns + KCl 20 Meq) 1,000 ml @ 100 mls/ hr Q10H IV Last administered on 10/08/16 12:56; Admin Dose 100 MLS/HR; Start at 18:30 AYMILE LARA MD Oct 09, 2016 12:02
--- NOTE | 2016-10-09 12:12 | CONS ---
Date/Time of Note Date/Time of Note DATE: 10/09/16 TIME: 12:11 Assessment/Plan Assessment/Plan Chief Complaint/Hosp Course SUBJECTIVE: No acute changes. no fevers, nad Abx: 1. Flagyl. 2. Cipro. 3. Cancidas. INDWELLINGS: PICC line placed on 09/21/2016 PHYSICAL EXAMINATION: GENERAL: This is a well-developed, fragile, elderly woman who is alert, in no distress. HEENT: Head atraumatic, normocephalic. Sclerae anicteric. Buccal mucosa pink. NECK: Supple, trachea midline. CHEST: Rise symmetrical. Breath sounds diminished to bases. HEART: S1, S2. ABDOMEN: Soft. Bowel sounds present. EXTREMITIES: Without cyanosis. ASSESSMENT: 1. Systemic inflammatory response syndrome with resolving leukocytosis. 2. Multiple intra-abdominal abscesses, status post exploratory laparotomy with small bowel resection and abscess drainage on 09/20/2016, and subsequently status post CT-guided drainage on 09/28/2016. 3. Bilateral pleural effusions, status post thoracentesis on 10/04/2016. 4. Anemia with bleeding scan and EGD have been negative. 5. Acute on chronic kidney disease. 6. Resolving ileus. 7. Urinary retention PLAN: Stable, continue present care/abx, f/u surgical rec-s, rec-s noted DW staff/pt Problems: Consultation Date/Type/Reason Admit Date/Time Sep 19, 2016 at 22:10 Type of Consultation: id Referring Provider: YAMILE LARA MD Exam/Review of Systems Vital Signs Vitals Vital Signs Date Time Temp Pulse Resp B/P Pulse Ox O2 Delivery O2 Flow Rate FiO2 10/09/16 07:40 98.0 103 18 145/70 92 10/09/16 01:13 3.0 10/08/16 20:00 Nasal Cannula Intake and Output 10/08/16 10/08/16 10/09/16 14:59 22:59 06:59 Intake Total 600 ml 1790 ml 1150 ml Output Total 3375 ml 1000 ml Balance 600 ml -1585 ml 150 ml Results Result Diagram: 10/09/16 0700 10/09/16 0700 Results 24 hrs Laboratory Tests Test 10/09/16 07:00 Anion Gap 10 Basophils # 0.1 Basophils % 0.4 Blood Urea Nitrogen 9 Calcium Level 8.0 L Carbon Dioxide Level 29 Chloride Level 103 Creatinine 0.86 Eosinophils # 0.2 Eosinophils % 1.2 Glucose Level 88 Hematocrit 33.4 L Hemoglobin 10.6 L Lymphocytes # 1.6 Lymphocytes % 11.7 L Mean Corpuscular Hemoglobin 28.1 L Mean Corpuscular Hemoglobin Concent 31.7 L Mean Corpuscular Volume 88.6 Mean Platelet Volume 9.2 Monocytes # 1.2 H Monocytes % 8.6 Neutrophils # 10.5 H Neutrophils % 77.7 H Nucleated Red Blood Cells # 0.0 Nucleated Red Blood Cells % 0.0 Platelet Count 350 Potassium Level 3.8 Red Blood Count 3.77 L Red Cell Distribution Width 15.6 H Sodium Level 138 White Blood Count 13.5 H Medications Medications Current Medications Salmeterol Xinafoate/ Fluticasone (Advair 250/50 Diskus) 1 inh BID INH Last administered on 10/09/16 08:34; Admin Dose 1 INH; Start 09/20/16 at 09:00 Dorzolamide/ Timolol (Cosopt) 1 drop BID LEFT EYE Last administered on 08:33; Admin Dose 1 DROP; Start 09/20/16 at 13:30 Latanoprost (Xalatan) 1 drop DAILY LEFT EYE Last administered on 10/09/16 08:33 ; Admin Dose 1 DROP; Start 09/20/16 at 13:30 IV Flush (NS 10 ml) 10 ml PRN PRN IV IV PROTOCOL; Start 09/21/16 at 17:30 Acetaminophen (Tylenol Liquid) 650 mg Q6H PRN NGT PAIN AND OR ELEVATED TEMP Last administered on 10/06/16 08:43; Admin Dose 650 MG; Start 09/22/16 at 00:20 Hydralazine HCl (Apresoline) 10 mg Q6H PRN IV for sbp>160 Last administered on 10/06/16 11:55; Admin Dose 10 MG; Start 09/27/16 at 08:00 Pantoprazole (Protonix Iv) 40 mg BID@06,18 IV Last administered on 10/09/16 06: 27; Admin Dose 40 MG; Start 09/30/16 at 06:00 Morphine Sulfate (morphine) 2 mg Q2H PRN IV pain Last administered on 10/06/16 12:45; Admin Dose 2 MG; Start 09/29/16 at 20:30 Sertraline HCl (Zoloft) 100 mg HS PO Last administered on 10/08/16 21:51; Admin Dose 100 MG; Start 09/29/16 at 23:30 Ondansetron HCl (Zofran Inj) 4 mg Q6H PRN IV NAUSEA AND/OR VOMITING Last administered on 10/05/16 07:48; Admin Dose 4 MG; Start 09/30/16 at 04:00 Ascorbic Acid (Vitamin C) 500 mg DAILY NGT Last administered on 10/09/16 08:32 ; Admin Dose 500 MG; Start 10/02/16 at 09:00 Ferrous Sulfate 325 mg 325 mg DAILY PO Last administered on 10/09/16 08:32; Admin Dose 325 MG; Start 10/01/16 at 17:25 Caspofungin 50 mg/ Sodium Chloride 250 ml @ 250 mls/hr Q24H IVPB Last administered on 10/08/16 21:51; Admin Dose 250 MLS/HR; Start 10/02/16 at 21:00 Ciprofloxacin/ Dextrose 200 ml @ 200 mls/hr Q12 IVPB Last administered on 08:33; Admin Dose 200 MLS/HR; Start 10/01/16 at 21:00 Metronidazole (Flagyl 500 Mg (Pmx)) 100 ml @ 100 mls/hr Q8 IVPB Last administered on 10/09/16 06:27; Admin Dose 100 MLS/HR; Start 10/01/16 at 22:00 Guaifenesin (Mucinex) 600 mg Q12 PO Last administered on 10/09/16 08:32; Admin Dose 600 MG; Start 10/01/16 at 21:30 Acetaminophen/ Hydrocodone Bitart ([place] (5/325)) 1 tab Q6H PRN PO PAIN Last administered on 10/06/16 14:16; Admin Dose 1 TAB; Start 10/02/16 at 05:30 Lorazepam (Ativan) 0.5 mg Q8H PRN IV ANXIETY Last administered on 10/08/16 23: 23; Admin Dose 0.5 MG; Start 10/04/16 at 12:30 Megestrol Acetate (Megace Susp) 800 mg DAILY PO Last administered on 10/09/16 08:33; Admin Dose 800 MG; Start 10/05/16 at 11:30 Amlodipine Besylate 2.5 mg 2.5 mg BID PO Last administered on 10/09/16 08:32; Admin Dose 2.5 MG; Start 10/06/16 at 21:00 Potassium Chloride/Dextrose/ Sod Cl (D5-1/2ns + KCl 20 Meq) 1,000 ml @ 100 mls/ hr Q10H IV Last administered on 10/08/16 12:56; Admin Dose 100 MLS/HR; Start at 18:30 YASMANY BECERRA NP Oct 09, 2016 12:12
[2016-10-09] MEDS ORDERED: VITAMIN A & D 5 GM OINT PACKET TOP ONE (21:15)
[2016-10-09] MEDS: SERTRALINE 100 MG TAB PO SCH (21:20)
[2016-10-09] MEDS: CASPOFUNGIN 50 MG in SOD CHLORIDE 0.9% 250 ML IVPB SCH (21:22)
--- NOTE | 2016-10-09 21:32 | CONS ---
Date/Time of Note Date/Time of Note DATE: 10/09/16 TIME: 21:32 Assessment/Plan Assessment/Plan Chief Complaint/Hosp Course IMPRESSION: 1. Gastrointestinal bleeding. bleeding scan negative,EGD negative,bleeding seems to have stopped 2. Multiple intra-abdominal abscesses, status post exploratory laparotomy with small bowel resection and abscess drainage on 09/20/2016, and subsequently status post CT-guided drainage on 09/28/2016. 3. Status post surgery for small-bowel obstruction, and also laparoscopic removal of the appendix. 4. Chronic obstructive pulmonary disease. 5. Hypertension. 6. Mild renal insufficiency. 7. Reduced appetite: slowly improving Plan monitor H&H and transfuse 2 units of pRBC if hgb less than 7.5 surgical f/u for wound care antibiotics per ID continue megace and encourage a PO diet Problems: Consultation Date/Type/Reason Admit Date/Time Sep 19, 2016 at 22:10 Type of Consultation: GI Referring Provider: YAMILE LARA MD 24 HR Interval Summary Free Text/Dictation occasional nausea, no appetite Exam/Review of Systems Vital Signs Vitals Vital Signs Date Time Temp Pulse Resp B/P Pulse Ox O2 Delivery O2 Flow Rate FiO2 10/09/16 08:45 Nasal Cannula 3.0 10/09/16 07:40 98.0 103 18 145/70 92 Intake and Output 10/08/16 10/08/16 10/09/16 15:00 23:00 07:00 Intake Total 600 ml 1790 ml 1250 ml Output Total 3375 ml 1000 ml Balance 600 ml -1585 ml 250 ml Exam Constitutional: alert, frail, oriented Psych: nl mood/affect, no complaints Head: atraumatic, normocephalic Eyes: EOMI, nl conjunctiva, nl lids, nl sclera ENMT: mucosa pink and moist, nl external ears & nose, nl lips & teeth, nl nasal mucosa & septum Neck: non-tender, supple Respiratory: clear to auscultation, normal air movement Cardiovascular: nl pulses, regular rate and rhythm Gastrointestinal: bowel sounds, soft Results Result Diagram: 10/09/16 0700 10/09/16 0700 Results 24 hrs Laboratory Tests Test 10/09/16 07:00 Anion Gap 10 Basophils # 0.1 Basophils % 0.4 Blood Urea Nitrogen 9 Calcium Level 8.0 L Carbon Dioxide Level 29 Chloride Level 103 Creatinine 0.86 Eosinophils # 0.2 Eosinophils % 1.2 Glucose Level 88 Hematocrit 33.4 L Hemoglobin 10.6 L Lymphocytes # 1.6 Lymphocytes % 11.7 L Mean Corpuscular Hemoglobin 28.1 L Mean Corpuscular Hemoglobin Concent 31.7 L Mean Corpuscular Volume 88.6 Mean Platelet Volume 9.2 Monocytes # 1.2 H Monocytes % 8.6 Neutrophils # 10.5 H Neutrophils % 77.7 H Nucleated Red Blood Cells # 0.0 Nucleated Red Blood Cells % 0.0 Platelet Count 350 Potassium Level 3.8 Red Blood Count 3.77 L Red Cell Distribution Width 15.6 H Sodium Level 138 White Blood Count 13.5 H Medications Medications Current Medications Salmeterol Xinafoate/ Fluticasone (Advair 250/50 Diskus) 1 inh BID INH Last administered on 10/09/16 08:34; Admin Dose 1 INH; Start 09/20/16 at 09:00 Dorzolamide/ Timolol (Cosopt) 1 drop BID LEFT EYE Last administered on 08:33; Admin Dose 1 DROP; Start 09/20/16 at 13:30 Latanoprost (Xalatan) 1 drop DAILY LEFT EYE Last administered on 10/09/16 08:33 ; Admin Dose 1 DROP; Start 09/20/16 at 13:30 IV Flush (NS 10 ml) 10 ml PRN PRN IV IV PROTOCOL; Start 09/21/16 at 17:30 Acetaminophen (Tylenol Liquid) 650 mg Q6H PRN NGT PAIN AND OR ELEVATED TEMP Last administered on 10/06/16 08:43; Admin Dose 650 MG; Start 09/22/16 at 00:20 Hydralazine HCl (Apresoline) 10 mg Q6H PRN IV for sbp>160 Last administered on 10/06/16 11:55; Admin Dose 10 MG; Start 09/27/16 at 08:00 Pantoprazole (Protonix Iv) 40 mg BID@06,18 IV Last administered on 10/09/16 17: 42; Admin Dose 40 MG; Start 09/30/16 at 06:00 Morphine Sulfate (morphine) 2 mg Q2H PRN IV pain Last administered on 10/06/16 12:45; Admin Dose 2 MG; Start 09/29/16 at 20:30 Sertraline HCl (Zoloft) 100 mg HS PO Last administered on 10/08/16 21:51; Admin Dose 100 MG; Start 09/29/16 at 23:30 Ondansetron HCl (Zofran Inj) 4 mg Q6H PRN IV NAUSEA AND/OR VOMITING Last administered on 10/05/16 07:48; Admin Dose 4 MG; Start 09/30/16 at 04:00 Ascorbic Acid (Vitamin C) 500 mg DAILY NGT Last administered on 10/09/16 08:32 ; Admin Dose 500 MG; Start 10/02/16 at 09:00 Ferrous Sulfate 325 mg 325 mg DAILY PO Last administered on 10/09/16 08:32; Admin Dose 325 MG; Start 10/01/16 at 17:25 Caspofungin 50 mg/ Sodium Chloride 250 ml @ 250 mls/hr Q24H IVPB Last administered on 10/08/16 21:51; Admin Dose 250 MLS/HR; Start 10/02/16 at 21:00 Ciprofloxacin/ Dextrose 200 ml @ 200 mls/hr Q12 IVPB Last administered on 08:33; Admin Dose 200 MLS/HR; Start 10/01/16 at 21:00 Metronidazole (Flagyl 500 Mg (Pmx)) 100 ml @ 100 mls/hr Q8 IVPB Last administered on 10/09/16 14:46; Admin Dose 100 MLS/HR; Start 10/01/16 at 22:00 Guaifenesin (Mucinex) 600 mg Q12 PO Last administered on 10/09/16 08:32; Admin Dose 600 MG; Start 10/01/16 at 21:30 Acetaminophen/ Hydrocodone Bitart ([place] (5/325)) 1 tab Q6H PRN PO PAIN Last administered on 10/06/16 14:16; Admin Dose 1 TAB; Start 10/02/16 at 05:30 Lorazepam (Ativan) 0.5 mg Q8H PRN IV ANXIETY Last administered on 10/08/16 23: 23; Admin Dose 0.5 MG; Start 10/04/16 at 12:30 Megestrol Acetate (Megace Susp) 800 mg DAILY PO Last administered on 10/09/16 08:33; Admin Dose 800 MG; Start 10/05/16 at 11:30 Amlodipine Besylate 2.5 mg 2.5 mg BID PO Last administered on 10/09/16 08:32; Admin Dose 2.5 MG; Start 10/06/16 at 21:00 Potassium Chloride/Dextrose/ Sod Cl (D5-1/2ns + KCl 20 Meq) 1,000 ml @ 100 mls/ hr Q10H IV Last administered on 10/09/16 06:30; Admin Dose 100 MLS/HR; Start at 18:30 LEO CEDENO MD Oct 09, 2016 21:32
[2016-10-09] MEDS: LORAZEPAM 2 MG INJ IV PRN (22:41)
--- NOTE | 2016-10-09 23:26 | PN ---
DATE: 10/09/2016 SUBJECTIVE: Urinary retention, urinary incontinence, and diarrhea. The patient states also she ramirez s have some abdominal pain. The patient appeared to be anxious and unhappy due to the fact that she cannot urinate and she also has diarrhea. Her daughter was at her bedside. The daughter had many questions, which I answered them and mainly had a long discussion about possible causes of her urina ry retention and her situation. The patient did have a pelvic surgery and she had a pelvic abscess and these had to be drained and any pelvic surgery or pelvic inflammation could cause urinary retent ion. Also the fact that she is bedridden and not moving much also could be a factor in her urinary retention. The patient also has been on medication that could cause a side effect of urinary retent ion and that is the ipratropium and the patient is on Ativan, also on Zoloft 100 mg. Whether these are causing the retention or not this is not certain, but these are known to have side effect, such as urinary retention. Therefore, it would be best if one could void taking medication that could ca use this side effect. Also discussed with her daughter in detail the possibility of putting her on urecholine and that urecholine may or may not help with her urinary retention. It also could have s ome side effect from her bowel and also on her blood pressure. Since she is having diarrhea then th is could make her diarrhea even worse. So I, at the present time, would prefer not to do that and w ait until her diarrhea at least stops. The patient was seen by physical therapy today. The patient was ambulated today with respiratory therapy. OBJECTIVE: VITAL SIGNS: Her temperature is 98.0, pulse is 103, respiration 18, blood pressure 145/70. LABORATORY DATA: CBC shows a white count of 13.5, hemoglobin 10.6, hematocrit 33.4. BUN is 9, crea tinine 0.86. Electrolytes are normal. DISCUSSION: The patient was catheterized multiple times today, the last one being right now in the evening. The bladder scan showed 586 mL of postvoid residual. She was catheterized for 650. Jeanie er, was catheterized for 680. Early this morning, she was catheterized for 750 mL out. Therefore, the recommendation would be to continue her in and out catheterization any time the postvoid residua l is over 300 or if she is not urinating and the volume in the bladder is over 500. At some time, reji moseley may try to give her urecholine and see what is the response to that. I also discussed with her da mónicareno, the InterStim, which is a stimulator to the sacral nerves to help with urinary retention, bu t that is an operation and that is not something that one is to consider right now. This is somethi ng for a permanent problem. The daughter also was given a chance and I encouraged her if she is unc omfortable and she wants to have another urologist see her mother and seek another opinion, I would be happy to help her in that. She also asking about the physical therapy ambulating her mother and she will address that with the nurses as well. I spent over a half hour talking with her and discus sing her mother's condition. Dictated By: HOMERO MYERS MD BB/NTS Conf#: [id number] DID#: [id number] CC: ILSA ENGLISH MD;*End*
[2016-10-10] MEDS: PANTOPRAZOLE 40 MG INJ IV SCH ×2 (05:50→17:27)
[2016-10-10] MEDS: metroNIDAZOLE 500 MG/NS (PMX) 100 ML IVPB SCH (05:50)
[2016-10-10] MEDS: FUROSEMIDE 40 MG INJ IV SCH ×2 (05:55→17:28)
[2016-10-10] MEDS: D5W-0.45 NACL + KCL 20 MEQ 1,000 ML IV SCH ×2 (06:30→15:39)
[2016-10-10 07:49] VITALS: BP 129/61; RESP 20
[2016-10-10] MEDS: GUAIFENESIN LA 600 MG TABSR PO SCH ×2 (09:09→20:17)
[2016-10-10] MEDS: ASCORBIC ACID 500 MG TAB NGT SCH (09:09)
[2016-10-10] MEDS: MEGESTROL (40 MG/ML) 10ML CUP PO SCH (09:09)
[2016-10-10] MEDS: CIPROFLOXACIN 400MG/D5W 200 ML IVPB SCH (09:09)
[2016-10-10] MEDS: FERROUS SULFATE (EC) 325 MG TAB PO SCH (09:09)
[2016-10-10] MEDS: SALMETEROL/FLUTICASONE 250/50 INHA INH SCH ×2 (09:09→20:17)
[2016-10-10] MEDS: DORZOLAMIDE/TIMOLOL 10 ML OPH LEFT EYE SCH ×2 (09:10→20:17)
[2016-10-10] MEDS: LATANOPROST 0.005% 2.5 ML OPH LEFT EYE SCH (09:10)
[2016-10-10] MEDS: AMLODIPINE 2.5 MG TAB PO SCH ×2 (09:11→20:18)
[2016-10-10] MEDS ORDERED: FOSFOMYCIN 3 GM PACKET PO ONE (12:00)
--- NOTE | 2016-10-10 12:52 | PN ---
DATE: 10/10/2016 SUBJECTIVE: No acute changes. The patient is alert, lying comfortably in bed. Complained of loose stool. No fevers. No labs this morning. MICROBIOLOGY: Urine culture on 10/07/2016 grew VRE, but less than 10 colonies, intermittently sens itive to fosfomycin. ANTIMICROBIALS: The patient is on: 1. Cancidas. 2. Cipro. 3. Flagyl. INDWELLINGS: Santos, PICC line. PHYSICAL EXAMINATION: GENERAL: This is a fragile, elderly woman who is alert, in no distress. HEENT: Head atraumatic, normocephalic. Sclerae anicteric. Buccal mucosa pink. NECK: Supple. CHEST: Rise symmetrical. Breath sounds diminished at bases. HEART: S1, S2. ABDOMEN: Soft. Bowel sounds present. EXTREMITIES: Without cyanosis. Bilateral trace edema. ASSESSMENT: 1. Systemic inflammatory response syndrome. 2. Multiple intra-abdominal abscesses on admission, status post exploratory laparotomy on 7, status post CT-guided drainage on 09/28/2016. 3. Urinary retention, urology on case, patient has Santos. 4. Bilateral pleural effusions, status post thoracentesis on 10/04/2016. 5. Anemia, status post EGD, status post bleeding scan, both negative. 6. Resolving ileus. 7. Status post acute kidney injury. PLAN: The patient remains stable. We are going to give her fosfomycin dose. We will change antib iotics to p.o. She is on Cipro, Flagyl and Cancidas. Continue management as per primary team and c onsultants. Dictated By: YASMANY BECERRA [employer] for THOMAS CALIXTO MD NI/NTS Conf#: [id number] DID#: [id number]
--- NOTE | 2016-10-10 14:07 | PN ---
Date/Time of Note Date/Time of Note DATE: 10/10/16 TIME: 14:03 Assessment/Plan VTE Prophylaxis VTE Prophylaxis Intervention: SCD's Lines/Catheters IV Catheter Type (from Nrs): PICC Line Central line still needed: Yes Urinary Cath still in place: Yes Reason Cath still needed: other (indicate) Assessment/Plan Chief Complaint/Hosp Course Assessment/Plan 1. Small bowel obstruction s/p Recent Laproscopic Appendectomy Status post small bowel resection x2. Continue postsurgical care, pain management and IV antibiotics Diet as per general surgery recommendations, encourage p.o. intake Abdominal x-ray negative for obstruction 2. Sepsis Likely secondary to intra-abdominal abscess and postoperatively infectious disease doctor has been consulted, continue Zosyn and Flagyl continue aggressive IV fluids 3. Hyperkalemia Resolved status post IV fluid, nephrology has been consulted, follow-up electrolytes in a.m. 4 . Abdominal abscess x3 . Status post drainage by interventional radiologist and Diagnostic laparoscopy, Exploratory laparotomy and abdominal washout. Status post CT-guided drainage by interventional radiologist 09/28/2016 , continue aggressive IV antibiotics Follow-up with general surgery recommendations 3. COPD 4. Essential hypertension, stable 5. Acute anemia, questionable GI bleed, status post transfusion of packed red blood cell, follow-up CBC in a.m. Status post colonoscopy and endoscopy Negative bleeding scan 6. Concerning for possible anastomotic leak in this location at small bowel anastomosis in the periumbilical abdomen, new when compared to the prior CT, General surgery has been notified, follow the recommendations No surgical intervention recommended at this time 7. Pleural effusion, start Lasix, status post thoracocentesis , continue IV antibiotics, pulmonology has been consulted 8. Acute renal insufficiency, resolved, nephrology has been consulted 9. Hypothyroidism 10 . Debility, continue physical therapy We will continue monitor patient closely for recommendation management treatment as clinical course manager private consult to transfer patient to [facility] Problems: Subjective 24 Hr Interval Summary Free Text/Dictation Patient denies of any chest pain or shortness of breath Continues to complain of having infrequent diarrhea and loose bowel Ambulate with moderate assist Exam/Review of Systems Vital Signs Vitals Vital Signs Date Time Temp Pulse Resp B/P Pulse Ox O2 Delivery O2 Flow Rate FiO2 10/10/16 08:00 Nasal Cannula 3.0 10/10/16 07:49 97.9 101 20 129/61 96 Intake and Output 10/09/16 10/09/16 10/10/16 15:00 23:00 07:00 Intake Total 2490 ml 1180 ml Output Total 1300 ml Balance 2490 ml -120 ml Exam General: The patient is well-developed, Not in acute distress. HEENT: Atraumatic, normocephalic. The pupils are equal and round . Neck: Supple with full range of motion. Chest: Normal expansion of the thorax during inspiration Lungs: Clear to auscultation bilaterally Heart: Normal S1-S2, Regular rhythm and rate. Abdomen: Soft , nontender, nondistended , bowel sounds are present. Surgical site is dry and clean Extremities: Normal to inspection, no edema no cyanosis Neurologic: Normal mental status,The patient is awake, alert and oriented . Results Result Diagram: 10/09/16 0700 10/09/16 0700 Medications Medications Current Medications Salmeterol Xinafoate/ Fluticasone (Advair 250/50 Diskus) 1 inh BID INH Last administered on 10/10/16 09:09; Admin Dose 1 INH; Start 09/20/16 at 09:00 Dorzolamide/ Timolol (Cosopt) 1 drop BID LEFT EYE Last administered on 09:10; Admin Dose 1 DROP; Start 09/20/16 at 13:30 Latanoprost (Xalatan) 1 drop DAILY LEFT EYE Last administered on 10/10/16 09:10 ; Admin Dose 1 DROP; Start 09/20/16 at 13:30 IV Flush (NS 10 ml) 10 ml PRN PRN IV IV PROTOCOL; Start 09/21/16 at 17:30 Acetaminophen (Tylenol Liquid) 650 mg Q6H PRN NGT PAIN AND OR ELEVATED TEMP Last administered on 10/06/16 08:43; Admin Dose 650 MG; Start 09/22/16 at 00:20 Hydralazine HCl (Apresoline) 10 mg Q6H PRN IV for sbp>160 Last administered on 10/06/16 11:55; Admin Dose 10 MG; Start 09/27/16 at 08:00 Pantoprazole (Protonix Iv) 40 mg BID@06,18 IV Last administered on 10/10/16 05: 50; Admin Dose 40 MG; Start 09/30/16 at 06:00 Morphine Sulfate (morphine) 2 mg Q2H PRN IV pain Last administered on 10/06/16 12:45; Admin Dose 2 MG; Start 09/29/16 at 20:30 Sertraline HCl (Zoloft) 100 mg HS PO Last administered on 10/09/16 21:20; Admin Dose 100 MG; Start 09/29/16 at 23:30 Ondansetron HCl (Zofran Inj) 4 mg Q6H PRN IV NAUSEA AND/OR VOMITING Last administered on 10/05/16 07:48; Admin Dose 4 MG; Start 09/30/16 at 04:00 Ascorbic Acid (Vitamin C) 500 mg DAILY NGT Last administered on 10/10/16 09:09 ; Admin Dose 500 MG; Start 10/02/16 at 09:00 Ferrous Sulfate (Ferrous Sulfate (Ec)) 325 mg DAILY PO Last administered on 10/10 09:09; Admin Dose 325 MG; Start 10/01/16 at 17:25 Guaifenesin (Mucinex) 600 mg Q12 PO Last administered on 10/10/16 09:09; Admin Dose 600 MG; Start 10/01/16 at 21:30 Acetaminophen/ Hydrocodone Bitart ([place] (5/325)) 1 tab Q6H PRN PO PAIN Last administered on 10/06/16 14:16; Admin Dose 1 TAB; Start 10/02/16 at 05:30 Lorazepam (Ativan) 0.5 mg Q8H PRN IV ANXIETY Last administered on 10/09/16 22: 41; Admin Dose 0.5 MG; Start 10/04/16 at 12:30 Megestrol Acetate (Megace Susp) 800 mg DAILY PO Last administered on 10/10/16 09:09; Admin Dose 800 MG; Start 10/05/16 at 11:30 Amlodipine Besylate 2.5 mg 2.5 mg BID PO Last administered on 10/10/16 09:11; Admin Dose 2.5 MG; Start 10/06/16 at 21:00 Potassium Chloride/Dextrose/ Sod Cl (D5-1/2ns + KCl 20 Meq) 1,000 ml @ 100 mls/ hr Q10H IV Last administered on 10/09/16 21:35; Admin Dose 100 MLS/HR; Start at 18:30 Metronidazole (Flagyl) 500 mg Q8 PO ; Start 10/10/16 at 14:00 Ciprofloxacin (Cipro) 500 mg BID@06,18 PO ; Start 10/10/16 at 18:00 Fluconazole (Diflucan) 100 mg DAILY PO ; Start 10/11/16 at 09:00 YAMILE LARA MD Oct 10, 2016 14:07
--- NOTE | 2016-10-10 14:12 | PN ---
DATE: 10/10/2016 SUBJECTIVE: Urinary retention. The patient is status post appendectomy. Then had a pelvic abscess and then she had release of adhesions and bowel resection. The patient was unable to urinate, had an indwelling Santos catheter, and when it was removed she was not able to urinate. She was put on i ntermittent catheterization. The patient had a Santos catheter put in back yesterday at night and st ill had it. Therefore, at the present, she is comfortable and the catheter is draining well. PHYSICAL EXAMINATION: VITAL SIGNS: Temperature is 97.9, pulse 101, respiration is 20, blood pressure 129/61. LABORATORY DATA: Her CBC shows a white count of 13.5, hematocrit 33.3, hemoglobin 10.6. BUN is 9, creatinine 0.86. 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 IMPRESSION: Postoperative urinary retention. PLAN: As already done, is to for now keep the Santos catheter in and when she is more active, then o ne could try to remove the Santos catheter and see if she voids again. Dictated By: HOMERO HANLEY/VU Conf#: [id number] DID#: [id number]
[2016-10-10] MEDS: metroNIDAZOLE 500 MG TAB PO SCH ×2 (14:15→21:27)
--- NOTE | 2016-10-10 14:40 | CONS ---
Date/Time of Note Date/Time of Note DATE: 10/10/16 TIME: 14:38 Assessment/Plan Assessment/Plan Additional Assessment/Plan Small bowel obstruction with abdominal abscess status post repeat surgery Recent shock Acute blood loss anemia/GI bleed Acute decompensated diastolic congestive heart failure Acute appendicitis status post surgery Preserved ejection fraction Hypertension Acute kidney injury, improved Pleural effusion status post thoracentesis -Patient's respiratory status continues to improve. BUN/creatinine ratio remain stable, continue IV diuretics, check chest x-ray in the morning. Maintain potassium above 4.0 and magnesium above 2.0, blood pressure trend remained stable Consultation Date/Type/Reason Admit Date/Time Sep 19, 2016 at 22:10 Type of Consultation: cv Referring Provider: YAMILE LARA MD 24 HR Interval Summary Free Text/Dictation Denies shortness of breath, feeling better with improved appetite Exam/Review of Systems Vital Signs Vitals Vital Signs Date Time Temp Pulse Resp B/P Pulse Ox O2 Delivery O2 Flow Rate FiO2 10/10/16 08:00 Nasal Cannula 3.0 10/10/16 07:49 97.9 101 20 129/61 96 Intake and Output 10/09/16 10/09/16 10/10/16 14:59 22:59 06:59 Intake Total 2490 ml 1180 ml Output Total 1300 ml Balance 2490 ml -120 ml Exam Sitting up, eating lunch, no apparent distress Constitutional: alert, oriented Head: normocephalic Neck: supple Respiratory: other (Coarse breath sounds bilaterally, decreased at the bases) Cardiovascular: other (S1-S2 heard), regular rate and rhythm Gastrointestinal: bowel sounds, non-tender, other (No guarding), soft Extremities: edema (Trace) Results Result Diagram: 10/09/16 0700 10/09/16 0700 Medications Medications Current Medications Salmeterol Xinafoate/ Fluticasone (Advair 250/50 Diskus) 1 inh BID INH Last administered on 10/10/16 09:09; Admin Dose 1 INH; Start 09/20/16 at 09:00 Dorzolamide/ Timolol (Cosopt) 1 drop BID LEFT EYE Last administered on 09:10; Admin Dose 1 DROP; Start 09/20/16 at 13:30 Latanoprost (Xalatan) 1 drop DAILY LEFT EYE Last administered on 10/10/16 09:10 ; Admin Dose 1 DROP; Start 09/20/16 at 13:30 IV Flush (NS 10 ml) 10 ml PRN PRN IV IV PROTOCOL; Start 09/21/16 at 17:30 Acetaminophen (Tylenol Liquid) 650 mg Q6H PRN NGT PAIN AND OR ELEVATED TEMP Last administered on 10/06/16 08:43; Admin Dose 650 MG; Start 09/22/16 at 00:20 Hydralazine HCl (Apresoline) 10 mg Q6H PRN IV for sbp>160 Last administered on 10/06/16 11:55; Admin Dose 10 MG; Start 09/27/16 at 08:00 Pantoprazole (Protonix Iv) 40 mg BID@,18 IV Last administered on 10/10/16 05: 50; Admin Dose 40 MG; Start 09/30/16 at 06:00 Morphine Sulfate (morphine) 2 mg Q2H PRN IV pain Last administered on 10/06/16 12:45; Admin Dose 2 MG; Start 09/29/16 at 20:30 Sertraline HCl (Zoloft) 100 mg HS PO Last administered on 10/09/16 21:20; Admin Dose 100 MG; Start 09/29/16 at 23:30 Ondansetron HCl (Zofran Inj) 4 mg Q6H PRN IV NAUSEA AND/OR VOMITING Last administered on 10/05/16 07:48; Admin Dose 4 MG; Start 09/30/16 at 04:00 Ascorbic Acid (Vitamin C) 500 mg DAILY NGT Last administered on 10/10/16 09:09 ; Admin Dose 500 MG; Start 10/02/16 at 09:00 Ferrous Sulfate (Ferrous Sulfate (Ec)) 325 mg DAILY PO Last administered on 10/10 09:09; Admin Dose 325 MG; Start 10/01/16 at 17:25 Guaifenesin (Mucinex) 600 mg Q12 PO Last administered on 10/10/16 09:09; Admin Dose 600 MG; Start 10/01/16 at 21:30 Acetaminophen/ Hydrocodone Bitart ([place] (5/325)) 1 tab Q6H PRN PO PAIN Last administered on 10/06/16 14:16; Admin Dose 1 TAB; Start 10/02/16 at 05:30 Lorazepam (Ativan) 0.5 mg Q8H PRN IV ANXIETY Last administered on 10/09/16 22: 41; Admin Dose 0.5 MG; Start 10/04/16 at 12:30 Megestrol Acetate (Megace Susp) 800 mg DAILY PO Last administered on 10/10/16 09:09; Admin Dose 800 MG; Start 10/05/16 at 11:30 Amlodipine Besylate 2.5 mg 2.5 mg BID PO Last administered on 10/10/16 09:11; Admin Dose 2.5 MG; Start 10/06/16 at 21:00 Potassium Chloride/Dextrose/ Sod Cl (D5-1/2ns + KCl 20 Meq) 1,000 ml @ 100 mls/ hr Q10H IV Last administered on 10/09/16 21:35; Admin Dose 100 MLS/HR; Start at 18:30 Metronidazole (Flagyl) 500 mg Q8 PO Last administered on 10/10/16 14:15; Admin Dose 500 MG; Start 10/10/16 at 14:00 Ciprofloxacin (Cipro) 500 mg BID@06,18 PO ; Start 10/10/16 at 18:00 Fluconazole (Diflucan) 100 mg DAILY PO ; Start 10/11/16 at 09:00 Taco Castillo DO Oct 10, 2016 14:40
--- NOTE | 2016-10-10 15:14 | CONS ---
Date/Time of Note Date/Time of Note DATE: 10/10/16 TIME: 15:13 Assessment/Plan Assessment/Plan Additional Assessment/Plan 1. Sepsis 2/2 to # 2 2. Multiple intra-abdominal abscesses, status post CT-guided aspiration with catheter placement on 09/28/2016.Status post small bowel resection and abscess drainage with exploratory laparotomy on 09/20/2016. 2. Acute kidney injury secondary to acute tubular necrosis from sepsis 3. Acute hyperkalemia with metabolic acidosis likely secondary to acute kidney injury.- now resolved 4. Small bowel obstructions status post exploratory laparotomy and abdominal washout- on TPN currently 5. History of recent laparoscopic appendectomy. 6. History of hypertension 7. History of chronic obstructive pulmonary disease. 8. History of hypothyroidism. PLAN: was having urinary retention,s/p Urolgoy consult was though due to medications, atrovent stopped, cr and electrolytes stable, ileus resolved. s/p thoracentesis 10/04/16- 800 cc drained, Pelvic CT did not show enough fluid on left pelvis to place a drain catheter making good urine will follow up Consultation Date/Type/Reason Admit Date/Time Sep 19, 2016 at 22:10 Initial Consult Date Sep Type of Consultation: NEPHROLOGY Referring Provider: YAMILE LARA MD 24 HR Interval Summary Free Text/Dictation no acute events, pain in abdomen, tolerating pO diet Exam/Review of Systems Vital Signs Vitals Vital Signs Date Time Temp Pulse Resp B/P Pulse Ox O2 Delivery O2 Flow Rate FiO2 10/10/16 08:00 Nasal Cannula 3.0 10/10/16 07:49 97.9 101 20 129/61 96 Intake and Output 10/09/16 10/09/16 10/10/16 15:00 23:00 07:00 Intake Total 2490 ml 1180 ml Output Total 1300 ml Balance 2490 ml -120 ml Exam GENERAL: This is a well-developed, fragile, elderly woman who is alert, in no distress. HEENT: Head atraumatic, normocephalic. Sclerae anicteric. Buccal mucosa pink. NECK: Supple, trachea midline. CHEST: Rise symmetrical. Breath sounds diminished to bases. HEART: S1, S2. ABDOMEN: Soft. Bowel sounds present. EXTREMITIES: Without cyanosis. Results Result Diagram: 10/09/16 0700 10/09/16 0700 Medications Medications Current Medications Salmeterol Xinafoate/ Fluticasone (Advair 250/50 Diskus) 1 inh BID INH Last administered on 10/10/16 09:09; Admin Dose 1 INH; Start 09/20/16 at 09:00 Dorzolamide/ Timolol (Cosopt) 1 drop BID LEFT EYE Last administered on 09:10; Admin Dose 1 DROP; Start 09/20/16 at 13:30 Latanoprost (Xalatan) 1 drop DAILY LEFT EYE Last administered on 10/10/16 09:10 ; Admin Dose 1 DROP; Start 09/20/16 at 13:30 IV Flush (NS 10 ml) 10 ml PRN PRN IV IV PROTOCOL; Start 09/21/16 at 17:30 Acetaminophen (Tylenol Liquid) 650 mg Q6H PRN NGT PAIN AND OR ELEVATED TEMP Last administered on 10/06/16 08:43; Admin Dose 650 MG; Start 09/22/16 at 00:20 Hydralazine HCl (Apresoline) 10 mg Q6H PRN IV for sbp>160 Last administered on 10/06/16 11:55; Admin Dose 10 MG; Start 09/27/16 at 08:00 Pantoprazole (Protonix Iv) 40 mg BID@,18 IV Last administered on 10/10/16 05: 50; Admin Dose 40 MG; Start 09/30/16 at 06:00 Morphine Sulfate (morphine) 2 mg Q2H PRN IV pain Last administered on 10/06/16 12:45; Admin Dose 2 MG; Start 09/29/16 at 20:30 Sertraline HCl (Zoloft) 100 mg HS PO Last administered on 10/09/16 21:20; Admin Dose 100 MG; Start 09/29/16 at 23:30 Ondansetron HCl (Zofran Inj) 4 mg Q6H PRN IV NAUSEA AND/OR VOMITING Last administered on 10/05/16 07:48; Admin Dose 4 MG; Start 09/30/16 at 04:00 Ascorbic Acid (Vitamin C) 500 mg DAILY NGT Last administered on 10/10/16 09:09 ; Admin Dose 500 MG; Start 10/02/16 at 09:00 Ferrous Sulfate (Ferrous Sulfate (Ec)) 325 mg DAILY PO Last administered on 10/10 09:09; Admin Dose 325 MG; Start 10/01/16 at 17:25 Guaifenesin (Mucinex) 600 mg Q12 PO Last administered on 10/10/16 09:09; Admin Dose 600 MG; Start 10/01/16 at 21:30 Acetaminophen/ Hydrocodone Bitart ([place] (5/325)) 1 tab Q6H PRN PO PAIN Last administered on 10/06/16 14:16; Admin Dose 1 TAB; Start 10/02/16 at 05:30 Lorazepam (Ativan) 0.5 mg Q8H PRN IV ANXIETY Last administered on 10/09/16 22: 41; Admin Dose 0.5 MG; Start 10/04/16 at 12:30 Megestrol Acetate (Megace Susp) 800 mg DAILY PO Last administered on 10/10/16 09:09; Admin Dose 800 MG; Start 10/05/16 at 11:30 Amlodipine Besylate 2.5 mg 2.5 mg BID PO Last administered on 10/10/16 09:11; Admin Dose 2.5 MG; Start 10/06/16 at 21:00 Potassium Chloride/Dextrose/ Sod Cl (D5-1/2ns + KCl 20 Meq) 1,000 ml @ 100 mls/ hr Q10H IV Last administered on 10/09/16 21:35; Admin Dose 100 MLS/HR; Start at 18:30 Metronidazole (Flagyl) 500 mg Q8 PO Last administered on 10/10/16 14:15; Admin Dose 500 MG; Start 10/10/16 at 14:00 Ciprofloxacin (Cipro) 500 mg BID@06,18 PO ; Start 10/10/16 at 18:00 Fluconazole (Diflucan) 100 mg DAILY PO ; Start 10/11/16 at 09:00 MADISYN MANUEL MD Oct 10, 2016 15:14
[2016-10-10] MEDS ORDERED: LOPERAMIDE 2 MG CAP PO PRN (15:30)
--- NOTE | 2016-10-10 17:25 | PN ---
DATE: 10/10/2016 SUBJECTIVE: Ms. Aguila is now postoperative day 21 from a small bowel resection. She is feeling better. She is tolerating p.o. better; however, she is having multiple bowel movements. VITAL SIGNS: She is afebrile. Vital signs stable. ABDOMEN: Soft, nontender, nondistended. Her urine output is over 1 liter. LABORATORY DATA: She did not have labs today. ASSESSMENT AND PLAN: Ms. Aguila is an 86-year-old female status post a small bowel resection and status post a laparoscopic appendectomy for perforated appendicitis. 1. Ileus has resolved. She is having multiple bowel movements; however, it seems to be more incont inence issue. Would recommend follow up with a colorectal surgeon as an outpatient. 2. Continuous urinary retention. Would keep catheter in as well. 3. Change to p.o. antibiotics. 4. Follow up in 2 weeks upon discharge. Dictated By: TRISTAN MYLES/VU Conf#: [id number] DID#: [id number]
[2016-10-10] MEDS: CIPROFLOXACIN 500 MG TAB PO SCH (17:27)
--- NOTE | 2016-10-10 18:46 | CONS ---
Date/Time of Note Date/Time of Note DATE: 10/10/16 TIME: 18:44 Assessment/Plan Assessment/Plan Chief Complaint/Hosp Course IMPRESSION: 1. Gastrointestinal bleeding. bleeding scan negative,EGD negative,bleeding seems to have stopped 2. Multiple intra-abdominal abscesses, status post exploratory laparotomy with small bowel resection and abscess drainage on 09/20/2016, and subsequently status post CT-guided drainage on 09/28/2016. 3. Status post surgery for small-bowel obstruction, and also laparoscopic removal of the appendix. 4. Chronic obstructive pulmonary disease. 5. Hypertension. 6. Mild renal insufficiency. 7. Reduced appetite: slowly improving 8. iron deficiency anemia Plan monitor H&H and transfuse 2 units of pRBC if hgb less than 7.5 I will check iron panel and replete via iv iron rather than PO iron to reduce pill load with hope of stimulating more appetite for her. surgical f/u for wound care antibiotics per ID continue megace and encourage a PO diet Problems: Consultation Date/Type/Reason Admit Date/Time Sep 19, 2016 at 22:10 Type of Consultation: GI Referring Provider: YAMILE LARA MD 24 HR Interval Summary Free Text/Dictation irritated today, continues to report poor appetite, occasional abdominal cramp Exam/Review of Systems Vital Signs Vitals Vital Signs Date Time Temp Pulse Resp B/P Pulse Ox O2 Delivery O2 Flow Rate FiO2 10/10/16 08:00 Nasal Cannula 3.0 10/10/16 07:49 97.9 101 20 129/61 96 Intake and Output 10/09/16 10/09/16 10/10/16 15:00 23:00 07:00 Intake Total 2490 ml 1180 ml Output Total 1300 ml Balance 2490 ml -120 ml Exam Constitutional: alert, frail, oriented Psych: anxiety Head: atraumatic, normocephalic Eyes: EOMI, nl conjunctiva, nl lids, nl sclera ENMT: mucosa pink and moist, nl external ears & nose, nl lips & teeth, nl nasal mucosa & septum Neck: non-tender, supple Respiratory: clear to auscultation, normal air movement Cardiovascular: nl pulses, regular rate and rhythm Gastrointestinal: bowel sounds, soft Results Result Diagram: 10/09/16 0700 10/09/16 0700 Medications Medications Current Medications Salmeterol Xinafoate/ Fluticasone (Advair 250/50 Diskus) 1 inh BID INH Last administered on 10/10/16 09:09; Admin Dose 1 INH; Start 09/20/16 at 09:00 Dorzolamide/ Timolol (Cosopt) 1 drop BID LEFT EYE Last administered on 09:10; Admin Dose 1 DROP; Start 09/20/16 at 13:30 Latanoprost (Xalatan) 1 drop DAILY LEFT EYE Last administered on 10/10/16 09:10 ; Admin Dose 1 DROP; Start 09/20/16 at 13:30 IV Flush (NS 10 ml) 10 ml PRN PRN IV IV PROTOCOL; Start 09/21/16 at 17:30 Acetaminophen (Tylenol Liquid) 650 mg Q6H PRN NGT PAIN AND OR ELEVATED TEMP Last administered on 10/06/16 08:43; Admin Dose 650 MG; Start 09/22/16 at 00:20 Hydralazine HCl (Apresoline) 10 mg Q6H PRN IV for sbp>160 Last administered on 10/06/16 11:55; Admin Dose 10 MG; Start 09/27/16 at 08:00 Pantoprazole (Protonix Iv) 40 mg BID@06,18 IV Last administered on 10/10/16 17: 27; Admin Dose 40 MG; Start 09/30/16 at 06:00 Morphine Sulfate (morphine) 2 mg Q2H PRN IV pain Last administered on 10/06/16 12:45; Admin Dose 2 MG; Start 09/29/16 at 20:30 Sertraline HCl (Zoloft) 100 mg HS PO Last administered on 10/09/16 21:20; Admin Dose 100 MG; Start 09/29/16 at 23:30 Ondansetron HCl (Zofran Inj) 4 mg Q6H PRN IV NAUSEA AND/OR VOMITING Last administered on 10/05/16 07:48; Admin Dose 4 MG; Start 09/30/16 at 04:00 Ascorbic Acid (Vitamin C) 500 mg DAILY NGT Last administered on 10/10/16 09:09 ; Admin Dose 500 MG; Start 10/02/16 at 09:00 Guaifenesin (Mucinex) 600 mg Q12 PO Last administered on 10/10/16 09:09; Admin Dose 600 MG; Start 10/01/16 at 21:30 Acetaminophen/ Hydrocodone Bitart ([place] (5/325)) 1 tab Q6H PRN PO PAIN Last administered on 10/06/16 14:16; Admin Dose 1 TAB; Start 10/02/16 at 05:30 Lorazepam (Ativan) 0.5 mg Q8H PRN IV ANXIETY Last administered on 10/09/16 22: 41; Admin Dose 0.5 MG; Start 10/04/16 at 12:30 Megestrol Acetate (Megace Susp) 800 mg DAILY PO Last administered on 10/10/16 09:09; Admin Dose 800 MG; Start 10/05/16 at 11:30 Amlodipine Besylate 2.5 mg 2.5 mg BID PO Last administered on 10/10/16 09:11; Admin Dose 2.5 MG; Start 10/06/16 at 21:00 Potassium Chloride/Dextrose/ Sod Cl (D5-1/2ns + KCl 20 Meq) 1,000 ml @ 100 mls/ hr Q10H IV Last administered on 10/10/16 15:39; Admin Dose 100 MLS/HR; Start at 18:30 Metronidazole (Flagyl) 500 mg Q8 PO Last administered on 10/10/16 14:15; Admin Dose 500 MG; Start 10/10/16 at 14:00 Ciprofloxacin (Cipro) 500 mg BID@06,18 PO Last administered on 10/10/16 17:27; Admin Dose 500 MG; Start 10/10/16 at 18:00 Fluconazole (Diflucan) 100 mg DAILY PO ; Start 10/11/16 at 09:00 LEO CEDENO MD Oct 10, 2016 18:45
[2016-10-10 19:55] VITALS: BP 147/65; RESP 18
[2016-10-10] MEDS: SERTRALINE 100 MG TAB PO SCH (20:17)
[2016-10-10 21:04] VITALS: BP 118/70; RESP 20
[2016-10-10] MEDS: ZOLPIDEM 5 MG TAB PO PRN ×2 (22:34→23:19)
[2016-10-11] MEDS: LORAZEPAM 2 MG INJ IV PRN (00:11)
[2016-10-11] MEDS: D5W-0.45 NACL + KCL 20 MEQ 1,000 ML IV SCH ×3 (00:16→11:33)
[2016-10-11] MEDS: CIPROFLOXACIN 500 MG TAB PO SCH (06:15)
[2016-10-11] MEDS: PANTOPRAZOLE 40 MG INJ IV SCH (06:15)
[2016-10-11] MEDS: metroNIDAZOLE 500 MG TAB PO SCH ×2 (06:15→14:04)
[2016-10-11] MEDS: FUROSEMIDE 40 MG INJ IV SCH (06:15)
--- NOTE | 2016-10-11 07:44 | RADRPT ---
PROCEDURE: XR Chest. CLINICAL INDICATION: CHF TECHNIQUE: An AP view of the chest was obtained. COMPARISON: Chest x-ray dated 10/06/2016 FINDINGS: There is a right upper extremity PICC line with tip in the mid SVC. There is prominence of the interstitial markings. There is mild bibasilar atelectasis with blunting of the left costophrenic angle. No pneumothorax is seen. The cardiomediastinal silhouette is mil dly enlarged . Calcifications are seen within the aortic arch. The osseous structures demonstrate s enescent changes. IMPRESSION: 1. Mild prominence of the interstitial markings, may reflect mild underlying interstitial edema or chronic lung changes. 2. Left basilar atelectasis with small left pleural effusion, improved when compared to the prior e xamination. 3. Mild cardiomegaly and aortic atherosclerosis. 4. Right upper extremity PICC line with tip in the mid SVC. RPTAT: HH .Annabel Polo MD, MD Date Time Electronically viewed and signed by .Annabel Polo MD, on 10/11/2016 07:43 .G/
[2016-10-11 08:02] VITALS: BP 137/70; RESP 16
[2016-10-11] MEDS: ASCORBIC ACID 500 MG TAB NGT SCH (08:39)
[2016-10-11] MEDS: SALMETEROL/FLUTICASONE 250/50 INHA INH SCH (08:39)
[2016-10-11] MEDS: MEGESTROL (40 MG/ML) 10ML CUP PO SCH (08:39)
[2016-10-11] MEDS: GUAIFENESIN LA 600 MG TABSR PO SCH (08:39)
[2016-10-11] MEDS: AMLODIPINE 2.5 MG TAB PO SCH (08:40)
[2016-10-11] MEDS: LATANOPROST 0.005% 2.5 ML OPH LEFT EYE SCH (08:41)
[2016-10-11] MEDS: DORZOLAMIDE/TIMOLOL 10 ML OPH LEFT EYE SCH (08:42)
[2016-10-11] MEDS ORDERED: FLUCONAZOLE 100 MG TAB PO SCH (09:00)
[2016-10-11 10:16] LABS: ADD SCAN DIFF NO
[2016-10-11 10:30] LABS: BASOPHILS % 0.4 % (0.0-2.0); EOSINOPHILS # 0.1 10^3/ul (0.0-0.5); EOSINOPHILS % 1.3 % (0.0-7.0); HEMATOCRIT 35.7 % (37.0-47.0); HEMOGLOBIN 11.1 g/dl (12.0-16.0); LYMPHOCYTES # 1.4 10^3/ul (0.8-2.9); LYMPHOCYTES % 14.2 % (15.0-51.0); MEAN CORPUSCULAR HEMOGLOBIN 27.8 pg (29.0-33.0); MEAN CORPUSCULAR HGB CONC 31.1 g/dl (32.0-37.0); MEAN CORPUSCULAR VOLUME 89.5 fl (82.0-101.0); MEAN PLATELET VOLUME 9.4 fl (7.4-10.4); MONOCYTE # 0.8 10^3/ul (0.3-0.9); MONOCYTES % 8.5 % (0.0-11.0); NEUTROPHIL # 7.4 10^3/ul (1.6-7.5); NEUTROPHILS % 75.2 % (39.0-77.0); PLATELET COUNT 325 10^3/UL (140-415); RED BLOOD COUNT 3.99 10^6/ul (4.20-5.40); RED CELL DISTRIBUTION WIDTH 15.6 % (11.5-14.5); WHITE BLOOD COUNT 9.9 10^3/ul (4.8-10.8)
[2016-10-11 10:32] LABS: POTASSIUM 3.3 mmol/L (3.5-5.1)
[2016-10-11 10:34] LABS: IRON 46 ug/dl (35-150)
[2016-10-11 10:35] LABS: CALCIUM 7.9 mg/dl (8.4-10.2); CREATININE 0.9 mg/dl (0.44-1.00)
[2016-10-11 10:36] LABS: MAGNESIUM 1.4 mg/dl (1.7-2.5)
[2016-10-11 10:43] LABS: TOTAL IRON BINDING CAPACITY 177 ug/dl (241-421)
--- NOTE | 2016-10-11 12:24 | CONS ---
Date/Time of Note Date/Time of Note DATE: 10/11/16 TIME: 12:23 Assessment/Plan Assessment/Plan Additional Assessment/Plan Small bowel obstruction with abdominal abscess status post repeat surgery Recent shock Acute blood loss anemia/GI bleed Acute decompensated diastolic congestive heart failure Acute appendicitis status post surgery Preserved ejection fraction Hypertension Acute kidney injury, improved Pleural effusion status post thoracentesis -Patient's respiratory status continues to improve. Chest x-ray improving, continue IV diuretics, supplement potassium and magnesium Consultation Date/Type/Reason Admit Date/Time Sep 19, 2016 at 22:10 Type of Consultation: cv Referring Provider: YAMILE LARA MD 24 HR Interval Summary Free Text/Dictation Denies current shortness of breath, complains of fatigue, no chest pain Exam/Review of Systems Vital Signs Vitals Vital Signs Date Time Temp Pulse Resp B/P Pulse Ox O2 Delivery O2 Flow Rate FiO2 10/11/16 08:30 Nasal Cannula 3.0 10/11/16 08:02 97.5 94 16 137/70 97 Intake and Output 10/10/16 10/10/16 10/11/16 14:59 22:59 06:59 Intake Total 840 ml 1620 ml Output Total 1800 ml 2000 ml Balance -960 ml -380 ml Exam No apparent distress Constitutional: alert, oriented Head: normocephalic Respiratory: other (Coarse breath sounds bilaterally, no wheezing) Cardiovascular: other (S1-S2 heard), regular rate and rhythm Gastrointestinal: bowel sounds, non-tender, other (Mild discomfort with palpation, no guarding), soft Extremities: edema (Trace) Results Result Diagram: 10/11/1645 10/11/16 0945 Results 24 hrs Laboratory Tests Test 10/11/16 09:45 Anion Gap 13 Basophils # 0.0 Basophils % 0.4 Blood Urea Nitrogen 9 Calcium Level 7.9 L Carbon Dioxide Level 26 Chloride Level 102 Creatinine 0.90 Eosinophils # 0.1 Eosinophils % 1.3 Glucose Level 141 Hematocrit 35.7 L Hemoglobin 11.1 L Iron Level 46 Lymphocytes # 1.4 Lymphocytes % 14.2 L Magnesium Level 1.4 L Mean Corpuscular Hemoglobin 27.8 L Mean Corpuscular Hemoglobin Concent 31.1 L Mean Corpuscular Volume 89.5 Mean Platelet Volume 9.4 Monocytes # 0.8 Monocytes % 8.5 Neutrophils # 7.4 Neutrophils % 75.2 Nucleated Red Blood Cells # 0.0 Nucleated Red Blood Cells % 0.0 Percent Iron Saturation 26 Platelet Count 325 Potassium Level 3.3 L Red Blood Count 3.99 L Red Cell Distribution Width 15.6 H Sodium Level 138 Total Iron Binding Capacity 177 L White Blood Count 9.9 # Medications Medications Current Medications Salmeterol Xinafoate/ Fluticasone (Advair 250/50 Diskus) 1 inh BID INH Last administered on 10/11/16 08:39; Admin Dose 1 INH; Start 09/20/16 at 09:00 Dorzolamide/ Timolol (Cosopt) 1 drop BID LEFT EYE Last administered on 08:42; Admin Dose 1 DROP; Start 09/20/16 at 13:30 Latanoprost (Xalatan) 1 drop DAILY LEFT EYE Last administered on 10/11/16 08:41 ; Admin Dose 1 DROP; Start 09/20/16 at 13:30 IV Flush (NS 10 ml) 10 ml PRN PRN IV IV PROTOCOL; Start 09/21/16 at 17:30 Acetaminophen (Tylenol Liquid) 650 mg Q6H PRN NGT PAIN AND OR ELEVATED TEMP Last administered on 10/06/16 08:43; Admin Dose 650 MG; Start 09/22/16 at 00:20 Hydralazine HCl (Apresoline) 10 mg Q6H PRN IV for sbp>160 Last administered on 10/06/16 11:55; Admin Dose 10 MG; Start 09/27/16 at 08:00 Pantoprazole (Protonix Iv) 40 mg BID@06,18 IV Last administered on 10/11/16 06: 15; Admin Dose 40 MG; Start 09/30/16 at 06:00 Morphine Sulfate (morphine) 2 mg Q2H PRN IV pain Last administered on 10/06/16 12:45; Admin Dose 2 MG; Start 09/29/16 at 20:30 Sertraline HCl (Zoloft) 100 mg HS PO Last administered on 10/10/16 20:17; Admin Dose 100 MG; Start 09/29/16 at 23:30 Ondansetron HCl (Zofran Inj) 4 mg Q6H PRN IV NAUSEA AND/OR VOMITING Last administered on 10/05/16 07:48; Admin Dose 4 MG; Start 09/30/16 at 04:00 Ascorbic Acid (Vitamin C) 500 mg DAILY NGT Last administered on 10/11/16 08:39 ; Admin Dose 500 MG; Start 10/02/16 at 09:00 Guaifenesin (Mucinex) 600 mg Q12 PO Last administered on 10/11/16 08:39; Admin Dose 600 MG; Start 10/01/16 at 21:30 Acetaminophen/ Hydrocodone Bitart ([place] (5/325)) 1 tab Q6H PRN PO PAIN Last administered on 10/06/16 14:16; Admin Dose 1 TAB; Start 10/02/16 at 05:30 Lorazepam (Ativan) 0.5 mg Q8H PRN IV ANXIETY Last administered on 10/11/16 00: 11; Admin Dose 0.5 MG; Start 10/04/16 at 12:30 Megestrol Acetate (Megace Susp) 800 mg DAILY PO Last administered on 10/11/16 08:39; Admin Dose 800 MG; Start 10/05/16 at 11:30 Amlodipine Besylate 2.5 mg 2.5 mg BID PO Last administered on 10/11/16 08:40; Admin Dose 2.5 MG; Start 10/06/16 at 21:00 Potassium Chloride/Dextrose/ Sod Cl (D5-1/2ns + KCl 20 Meq) 1,000 ml @ 100 mls/ hr Q10H IV Last administered on 10/11/16 11:33; Admin Dose 100 MLS/HR; Start at 18:30 Metronidazole (Flagyl) 500 mg Q8 PO Last administered on 10/11/16 06:15; Admin Dose 500 MG; Start 10/10/16 at 14:00 Ciprofloxacin (Cipro) 500 mg BID@06,18 PO Last administered on 10/11/16 06:15; Admin Dose 500 MG; Start 10/10/16 at 18:00 Fluconazole (Diflucan) 100 mg DAILY PO Last administered on 10/11/16 08:40; Admin Dose 100 MG; Start 10/11/16 at 09:00 Taco Castillo DO Oct 11, 2016 12:24
[2016-10-11] MEDS ORDERED: POTASSIUM CHLORIDE (SR) 20 MEQ TAB PO SCH ×2 (12:30→16:00)
--- NOTE | 2016-10-11 13:19 | CONS ---
Date/Time of Note Date/Time of Note DATE: 10/11/16 TIME: 13:18 Assessment/Plan Assessment/Plan Chief Complaint/Hosp Course SUBJECTIVE: No acute changes. no fevers, nad Abx: 1. Flagyl. 2. Cipro. 3. Cancidas. INDWELLINGS: PICC line placed on 09/21/2016 PHYSICAL EXAMINATION: GENERAL: This is a well-developed, fragile, elderly woman who is alert, in no distress. HEENT: Head atraumatic, normocephalic. Sclerae anicteric. Buccal mucosa pink. NECK: Supple, trachea midline. CHEST: Rise symmetrical. Breath sounds diminished to bases. HEART: S1, S2. ABDOMEN: Soft. Bowel sounds present. EXTREMITIES: Without cyanosis. ASSESSMENT: 1. Systemic inflammatory response syndrome with resolving leukocytosis. 2. Multiple intra-abdominal abscesses, status post exploratory laparotomy with small bowel resection and abscess drainage on 09/20/2016, and subsequently status post CT-guided drainage on 09/28/2016. 3. Bilateral pleural effusions, status post thoracentesis on 10/04/2016. 4. Anemia with bleeding scan and EGD have been negative. 5. Acute on chronic kidney disease. 6. Resolving ileus. 7. Urinary retention PLAN: Remains stable, continue abx for 2 more weeks, f/u surgical/ rec-s, pending dc plan, dc isolation staff/pt Problems: Consultation Date/Type/Reason Admit Date/Time Sep 19, 2016 at 22:10 Type of Consultation: id Referring Provider: YAMILE LARA MD Exam/Review of Systems Vital Signs Vitals Vital Signs Date Time Temp Pulse Resp B/P Pulse Ox O2 Delivery O2 Flow Rate FiO2 10/11/16 08:30 Nasal Cannula 3.0 10/11/16 08:02 97.5 94 16 137/70 97 Intake and Output 10/10/16 10/10/16 10/11/16 15:00 23:00 07:00 Intake Total 840 ml 1620 ml Output Total 1800 ml 2000 ml Balance -960 ml -380 ml Results Result Diagram: 10/11/16 0945 10/11/16 0945 Results 24 hrs Laboratory Tests Test 10/11/16 09:45 Anion Gap 13 Basophils # 0.0 Basophils % 0.4 Blood Urea Nitrogen 9 Calcium Level 7.9 L Carbon Dioxide Level 26 Chloride Level 102 Creatinine 0.90 Eosinophils # 0.1 Eosinophils % 1.3 Glucose Level 141 Hematocrit 35.7 L Hemoglobin 11.1 L Iron Level 46 Lymphocytes # 1.4 Lymphocytes % 14.2 L Magnesium Level 1.4 L Mean Corpuscular Hemoglobin 27.8 L Mean Corpuscular Hemoglobin Concent 31.1 L Mean Corpuscular Volume 89.5 Mean Platelet Volume 9.4 Monocytes # 0.8 Monocytes % 8.5 Neutrophils # 7.4 Neutrophils % 75.2 Nucleated Red Blood Cells # 0.0 Nucleated Red Blood Cells % 0.0 Percent Iron Saturation 26 Platelet Count 325 Potassium Level 3.3 L Red Blood Count 3.99 L Red Cell Distribution Width 15.6 H Sodium Level 138 Total Iron Binding Capacity 177 L White Blood Count 9.9 # Medications Medications Current Medications Salmeterol Xinafoate/ Fluticasone (Advair 250/50 Diskus) 1 inh BID INH Last administered on 10/11/16 08:39; Admin Dose 1 INH; Start 09/20/16 at 09:00 Dorzolamide/ Timolol (Cosopt) 1 drop BID LEFT EYE Last administered on 08:42; Admin Dose 1 DROP; Start 09/20/16 at 13:30 Latanoprost (Xalatan) 1 drop DAILY LEFT EYE Last administered on 10/11/16 08:41 ; Admin Dose 1 DROP; Start 09/20/16 at 13:30 IV Flush (NS 10 ml) 10 ml PRN PRN IV IV PROTOCOL; Start 09/21/16 at 17:30 Acetaminophen (Tylenol Liquid) 650 mg Q6H PRN NGT PAIN AND OR ELEVATED TEMP Last administered on 10/06/16 08:43; Admin Dose 650 MG; Start 09/22/16 at 00:20 Hydralazine HCl (Apresoline) 10 mg Q6H PRN IV for sbp>160 Last administered on 10/06/16 11:55; Admin Dose 10 MG; Start 09/27/16 at 08:00 Pantoprazole (Protonix Iv) 40 mg BID@,18 IV Last administered on 10/11/16 06: 15; Admin Dose 40 MG; Start 09/30/16 at 06:00 Morphine Sulfate (morphine) 2 mg Q2H PRN IV pain Last administered on 10/06/16 12:45; Admin Dose 2 MG; Start 09/29/16 at 20:30 Sertraline HCl (Zoloft) 100 mg HS PO Last administered on 10/10/16 20:17; Admin Dose 100 MG; Start 09/29/16 at 23:30 Ondansetron HCl (Zofran Inj) 4 mg Q6H PRN IV NAUSEA AND/OR VOMITING Last administered on 10/05/16 07:48; Admin Dose 4 MG; Start 09/30/16 at 04:00 Ascorbic Acid (Vitamin C) 500 mg DAILY NGT Last administered on 10/11/16 08:39 ; Admin Dose 500 MG; Start 10/02/16 at 09:00 Guaifenesin (Mucinex) 600 mg Q12 PO Last administered on 10/11/16 08:39; Admin Dose 600 MG; Start 10/01/16 at 21:30 Acetaminophen/ Hydrocodone Bitart ([place] (5/325)) 1 tab Q6H PRN PO PAIN Last administered on 10/06/16 14:16; Admin Dose 1 TAB; Start 10/02/16 at 05:30 Lorazepam (Ativan) 0.5 mg Q8H PRN IV ANXIETY Last administered on 10/11/16 00: 11; Admin Dose 0.5 MG; Start 10/04/16 at 12:30 Megestrol Acetate (Megace Susp) 800 mg DAILY PO Last administered on 10/11/16 08:39; Admin Dose 800 MG; Start 10/05/16 at 11:30 Amlodipine Besylate 2.5 mg 2.5 mg BID PO Last administered on 10/11/16 08:40; Admin Dose 2.5 MG; Start 10/06/16 at 21:00 Potassium Chloride/Dextrose/ Sod Cl (D5-1/2ns + KCl 20 Meq) 1,000 ml @ 100 mls/ hr Q10H IV Last administered on 10/11/16 11:33; Admin Dose 100 MLS/HR; Start at 18:30 Metronidazole (Flagyl) 500 mg Q8 PO Last administered on 10/11/16 06:15; Admin Dose 500 MG; Start 10/10/16 at 14:00 Ciprofloxacin (Cipro) 500 mg BID@18 PO Last administered on 10/11/16 06:15; Admin Dose 500 MG; Start 10/10/16 at 18:00 Fluconazole (Diflucan) 100 mg DAILY PO Last administered on 10/11/16 08:40; Admin Dose 100 MG; Start 10/11/16 at 09:00 Potassium Chloride 40 meq 40 meq Q6H PO ; Start 10/11/16 at 12:30; Stop 10/11/16 at 18:31 Magnesium Sulfate/ Sodium Chloride (Magnesium Sulfate/NS) 106 ml @ 35.333 mls/ hr ONCE ONCE IVPB ; Start 10/11/16 at 14:00; Stop 10/11/16 at 16:59 YASMANY BECERRA NP Oct 11, 2016 13:19
[2016-10-11] MEDS ORDERED: MAGNESIUM SULFATE 3 GM in SOD CHLORIDE 0.9% 100 ML IVPB ONE (14:00)
--- NOTE | 2016-10-11 14:47 | PDOCDIS ---
Discharge Instructions CONDITION Patient Condition: Stable HOME CARE INSTRUCTIONS: Special Diet: regular ACTIVITY: Activity Restrictions: Slowly Increase Activity Rest between Activity Special Program Special Exercises FOLLOW UP/APPOINTMENTS Appointments Follow up with GI in 3-4 weeks FOllow up with General surgery Dr. Quinn in 2-3 weeks YAMILE LARA MD Oct 11, 2016 14:47
[2016-10-11] MEDS ORDERED: MAGNESIUM OXIDE 400 MG TAB PO ONE (15:30)
--- NOTE | 2016-10-11 17:16 | DS ---
DATE OF ADMISSION: 09/19/2016 DATE OF DISCHARGE: 10/11/2016 CONSULTANTS: 1. NATALY PAGE MD. 2. MADISYN MANUEL MD. 3. JESSICA SOUSA DO. 4. THOMAS CALIXTO MD. 5. MICHELE MIRELES MD. 6. SATHISH WYATT MD. 7. LEO CEDENO MD. 8. HOMERO MYERS MD. 9. TRISTAN DHALIWAL MD. PROCEDURES: 1. Diagnostic laparoscopy with exploratory laparotomy, abdominal washout, small bowel resection x2. 2. CT abdomen with abscess drainage. 3. Thoracocentesis. 4. PICC line insertion. FINAL DIAGNOSES: 1. Small-bowel obstruction status post laparoscopic appendectomy, status post small bowel resection x2. 2. Sepsis, resolved. 3. Hyperkalemia. 4. Abdominal abscess x3, status post drainage by interventional radiology and exploratory laparotom y with abdominal washout. 5. Chronic obstructive pulmonary disease. 6. Essential hypertension. 7. Anemia. 8. Pleural effusion, status post thoracocentesis. 9. Acute renal insufficiency, resolved. 10. Hyperthyroidism. 11. Irritable bowel syndrome. 12. Osteoporosis. 13. Major depression. 14. Insomnia. MEDICATIONS: 1. Tylenol 650 mg. 2. Norvasc 2.5 mg. 3. Vitamin C 500 mg. 4. Ciprofloxacin 500 mg. 5. Cosopt. 6. Lasix 20 mg. 7. [place] 5/325. 8. Xalatan. 9. Ativan. 10. Flagyl 500 mg x14 days. 11. Protonix. 12. Advair. 13. Zoloft 100 mg. 14. Buspar. 15. Hyoscyamine sulfate. 16. Levothyroxine. 17. Mirabegron. 18. Lorazepam 19. Magnesium oxide. 20. Megace. 21. Probiotic. 22. Zofran. 23. Coreg. 24. Ferrous sulfate 325 mg. DIET: Cardiac. ACTIVITY: With assistance. CBC, BMP, mag on 10/12/2016, 10/16/2016. ALLERGIES: NO KNOWN DRUG ALLERGIES. HOSPITAL COURSE: This is an 86-year-old female with a complicated hospitalization who was admitted to [facility] secondary to having abdominal discomfort and was diagnosed with acut e appendicitis and had laparoscopic appendectomy and postoperatively patient did fairly well and was transferred to [facility] where patient complained of having abdomina l discomfort and diarrhea and without any fever. The patient had a CT of the abdomen which was norm al, although the repeated CT abdomen 4 days later was found to have intraabdominal abscess. Interve ntional radiology was consulted. The patient had a CT-guided drainage of the abscess. The patient continued to complain of having abdominal discomfort and was found to have a small-bowel obstruction . NG tube was placed. Patient was transferred to the acute setting where she was taken to OR for d iagnostic laparoscopy, exploratory laparotomy and abdominal washout and small bowel resection x2. Th e patient was continued on IV antibiotics. The patient had respiratory distress and was admitted to the ICU where she was seen and evaluated by [employer] senior officer. She also had renal insufficiency, likel y secondary to sepsis. She was seen and evaluated by nephrology and the patient was seen and evalua briana by infectious disease. On the repeat CT of the abdomen, patient was found to have another intra abdominal abscesses which was again drained by interventional radiologist. The patient was found to have a complicated hospitalization and had been having difficulty ambulating with decreased p.o. in take. Also, she has been having episodes of depression for which she was restarted on her home medi cation today on 10/11/2016. Patient has been cleared by general surgery, author's agent and inf ectious disease doctor. She has been taken off isolation and is stable to be transferred to care home facility for physical therapy, oral antibiotics and her home medications. CONDITION AT TIME OF DISCHARGE: Stable. Labs today: WBC 9.9, hemoglobin 11.1, hematocrit 35.7, harriett telets 325. Sodium 138, potassium 3.3, chloride 102, bicarbonate 26, BUN 9, creatinine 0.90, glucos e 141, calcium 7.9, magnesium 1.4. Patient's magnesium and potassium has been repleted by oral magn esium and potassium chloride prior to discharge. Dictated By: YAMILE LARA MD PN/NTS Conf#: [id number] DID#: [id number]
[2016-10-11 17:20] VITALS: BP 155/70; RESP 18
[2016-10-11] MEDS ORDERED: PANTOPRAZOLE (EC) 40 MG TAB PO SCH (18:00)
--- NOTE | 2016-10-11 18:19 | CONS ---
Date/Time of Note Date/Time of Note DATE: 10/11/16 TIME: 18:18 Assessment/Plan Assessment/Plan Chief Complaint/Hosp Course IMPRESSION: 1. Gastrointestinal bleeding. bleeding scan negative,EGD negative, bleeding stopped 2. Multiple intra-abdominal abscesses, status post exploratory laparotomy with small bowel resection and abscess drainage on 09/20/2016, and subsequently status post CT-guided drainage on 09/28/2016. 3. Status post surgery for small-bowel obstruction, and also laparoscopic removal of the appendix. 4. Chronic obstructive pulmonary disease. 5. Hypertension. 6. Mild renal insufficiency. 7. Reduced appetite: slowly improving 8. iron deficiency anemia Plan monitor H&H and transfuse 2 units of pRBC if hgb less than 7.5 I will check iron panel and replete via iv iron rather than PO iron to reduce pill load with hope of stimulating more appetite for her. surgical f/u for wound care antibiotics per ID continue megace and encourage a PO diet OK from GI perspective to dc home if ok with primary and other consultants. Problems: Consultation Date/Type/Reason Admit Date/Time Sep 19, 2016 at 22:10 Type of Consultation: GI Referring Provider: YAMILE LARA MD 24 HR Interval Summary Free Text/Dictation Denies current shortness of breath, complains of fatigue, no chest pain, no n/v , no melena, no brbpr Exam/Review of Systems Vital Signs Vitals Vital Signs Date Time Temp Pulse Resp B/P Pulse Ox O2 Delivery O2 Flow Rate FiO2 10/11/16 08:30 Nasal Cannula 3.0 10/11/16 08:02 97.5 94 16 137/70 97 Intake and Output 10/10/16 10/10/16 10/11/16 15:00 23:00 07:00 Intake Total 840 ml 1620 ml Output Total 1800 ml 2000 ml Balance -960 ml -380 ml Exam Head: atraumatic, normocephalic Eyes: EOMI, nl conjunctiva, nl lids, nl sclera ENMT: mucosa pink and moist, nl external ears & nose, nl lips & teeth, nl nasal mucosa & septum Neck: non-tender, supple Respiratory: clear to auscultation, normal air movement Cardiovascular: nl pulses, regular rate and rhythm Gastrointestinal: bowel sounds, non-tender, soft Results Result Diagram: 10/11/16 0945 10/11/16 0945 Results 24 hrs Laboratory Tests Test 10/11/16 09:45 Anion Gap 13 Basophils # 0.0 Basophils % 0.4 Blood Urea Nitrogen 9 Calcium Level 7.9 L Carbon Dioxide Level 26 Chloride Level 102 Creatinine 0.90 Eosinophils # 0.1 Eosinophils % 1.3 Glucose Level 141 Hematocrit 35.7 L Hemoglobin 11.1 L Iron Level 46 Lymphocytes # 1.4 Lymphocytes % 14.2 L Magnesium Level 1.4 L Mean Corpuscular Hemoglobin 27.8 L Mean Corpuscular Hemoglobin Concent 31.1 L Mean Corpuscular Volume 89.5 Mean Platelet Volume 9.4 Monocytes # 0.8 Monocytes % 8.5 Neutrophils # 7.4 Neutrophils % 75.2 Nucleated Red Blood Cells # 0.0 Nucleated Red Blood Cells % 0.0 Percent Iron Saturation 26 Platelet Count 325 Potassium Level 3.3 L Red Blood Count 3.99 L Red Cell Distribution Width 15.6 H Sodium Level 138 Total Iron Binding Capacity 177 L White Blood Count 9.9 # LEO CEDENO MD Oct 11, 2016 18:19
--- NOTE | 2016-10-11 21:32 | CONS ---
Date/Time of Note Date/Time of Note DATE: 10/11/16 TIME: 21:30 Assessment/Plan Assessment/Plan Additional Assessment/Plan 1. Sepsis 2/2 to # 2 2. Multiple intra-abdominal abscesses, status post CT-guided aspiration with catheter placement on 09/28/2016.Status post small bowel resection and abscess drainage with exploratory laparotomy on 09/20/2016. 2. Acute kidney injury secondary to acute tubular necrosis from sepsis 3. Acute hyperkalemia with metabolic acidosis likely secondary to acute kidney injury.- now resolved 4. Small bowel obstructions status post exploratory laparotomy and abdominal washout- on TPN currently 5. History of recent laparoscopic appendectomy. 6. History of hypertension 7. History of chronic obstructive pulmonary disease. 8. History of hypothyroidism. PLAN: was having urinary retention,s/p Urolgoy consult was though due to medications, atrovent stopped, cr and electrolytes stable, ileus resolved. s/p thoracentesis 10/04/16- 800 cc drained, Pelvic CT did not show enough fluid on left pelvis to place a drain catheter making good urine will follow up plan for d/c today Consultation Date/Type/Reason Admit Date/Time Sep 19, 2016 at 22:10 Initial Consult Date Sep Type of Consultation: NEPHROLOGY Reason for Consultation acute kidney injury,Hyperkalemia Referring Provider: YAMILE LRAA MD 24 HR Interval Summary Free Text/Dictation seen early in AM Exam/Review of Systems Vital Signs Vitals Vital Signs Date Time Temp Pulse Resp B/P Pulse Ox O2 Delivery O2 Flow Rate FiO2 10/11/16 17:20 98.0 18 155/70 96 Nasal Cannula 3.0 10/11/16 08:02 94 Intake and Output 10/10/16 10/10/16 10/11/16 14:59 22:59 06:59 Intake Total 840 ml 1620 ml Output Total 1800 ml 2000 ml Balance -960 ml -380 ml Results Result Diagram: 10/11/16 0945 10/11/16 0945 Results 24 hrs Laboratory Tests Test 10/11/16 09:45 Anion Gap 13 Basophils # 0.0 Basophils % 0.4 Blood Urea Nitrogen 9 Calcium Level 7.9 L Carbon Dioxide Level 26 Chloride Level 102 Creatinine 0.90 Eosinophils # 0.1 Eosinophils % 1.3 Glucose Level 141 Hematocrit 35.7 L Hemoglobin 11.1 L Iron Level 46 Lymphocytes # 1.4 Lymphocytes % 14.2 L Magnesium Level 1.4 L Mean Corpuscular Hemoglobin 27.8 L Mean Corpuscular Hemoglobin Concent 31.1 L Mean Corpuscular Volume 89.5 Mean Platelet Volume 9.4 Monocytes # 0.8 Monocytes % 8.5 Neutrophils # 7.4 Neutrophils % 75.2 Nucleated Red Blood Cells # 0.0 Nucleated Red Blood Cells % 0.0 Percent Iron Saturation 26 Platelet Count 325 Potassium Level 3.3 L Red Blood Count 3.99 L Red Cell Distribution Width 15.6 H Sodium Level 138 Total Iron Binding Capacity 177 L White Blood Count 9.9 # MADISYN MANUEL MD Oct 11, 2016 21:32
[2016-10-12] MEDS ORDERED: POTASSIUM CHLORIDE (SR) 20 MEQ TAB PO SCH (09:00)
== END 2016-10-11 17:45 | DRG 853 ==
LOC: PP2 22:10 → ICU 09-20 22:17 → MS2 09-25 12:10 → MS4 09-29 21:50 → TEL 10-03 20:01 → MS2 10-05 13:31
PROVIDERS: ADMIT Internal Medicine; ATTEND Internal Medicine
PROC: 0WJJ4ZZ Inspection of Pelvic Cavity, Percutaneous Endoscopic Approach (ICD-10-PCS; 2016-09-20)
PROC: 0DB80ZZ Excision of Small Intestine, Open Approach (ICD-10-PCS; principal; 2016-09-20 18:00)
PROC: 02HV33Z Insertion of Infusion Device into Superior Vena Cava, Percutaneous Approach (ICD-10-PCS; 2016-09-21)
PROC: 30233N1 Transfusion of Nonautologous Red Blood Cells into Peripheral Vein, Percutaneous Approach (ICD-10-PCS; 2016-09-22)
PROC: 0W9J30Z Drainage of Pelvic Cavity with Drainage Device, Percutaneous Approach (ICD-10-PCS; 2016-09-28)
PROC: 0DJ08ZZ Inspection of Upper Intestinal Tract, Via Natural or Artificial Opening Endoscopic (ICD-10-PCS; 2016-10-02)
PROC: 0W993ZZ Drainage of Right Pleural Cavity, Percutaneous Approach (ICD-10-PCS; 2016-10-04)
DX: A41.9 Sepsis, unspecified organism (principal); N17.0 Acute kidney failure with tubular necrosis; K65.1 Peritoneal abscess; K56.5 Intestinal adhesions [bands] with obstruction (postinfection); J90 Pleural effusion, not elsewhere classified; I50.32 Chronic diastolic (congestive) heart failure; I11.0 Hypertensive heart disease with heart failure; D62 Acute posthemorrhagic anemia; K56.7 Ileus, unspecified; T81.10XA Postprocedural shock unspecified, initial encounter; K92.2 Gastrointestinal hemorrhage, unspecified; J98.11 Atelectasis; E87.5 Hyperkalemia; B37.9 Candidiasis, unspecified; J44.9 Chronic obstructive pulmonary disease, unspecified; E03.9 Hypothyroidism, unspecified; Z87.891 Personal history of nicotine dependence; Z53.31 Laparoscopic surgical procedure converted to open procedure; K29.70 Gastritis, unspecified, without bleeding; R19.7 Diarrhea, unspecified; R33.9 Retention of urine, unspecified
CPT/HCPCS: 36430; 36569; 36600; 71010; 72192; 74000; 74010; 74177; 76775; 76937; 76942; 77012; 78278; 80048; 80053; 81003; 82270; 82803; 82962; 83540; 83605; 83735; 83880; 84100; 84134; 84155; 84300; 85014; 85018; 85025; 85049; 85610; 85670; 85730; 86644; 86850; 86900; 86901; 86920; 87040; 87045; 87070; 87075; 87081; 87086; 87102; 87116; 88305; 89190; 94640; 94664; 97110; 97116; 97162; 97164; 97530; J1940; A4310; A9560; C9113; J0330; J0360; J0744; J1170; J1200; J1450; J1644; J1650; J1885; J2060; J2250; J2270; J2370; J2405; J2543; J2710; J2765; J2795; J3010; J3475; J3480; J7030; J7040; J7042; J7050; P9016; P9047; Q9967

== ENCOUNTER 2016-11-15 13:15 | Inpatient (IN) | payer MEDICARE, OTHER ==
[~2016-11-15] VITALS: Ht 160 cm; Wt 53.8 kg
[~2016-11-15 13:15] MED LIST changes: -ACT35 PO; -CARV6.25 PO; -CLON-379 PO; -IMIP25TA3 PO; -LOPE2CAP PO; +SERT100T PO; -TIOT18CA IH; -[UNRECOGNIZED DRUG - CODE] PO
[2016-11-15] MEDS ORDERED: SOD CHLORIDE 0.9% 500 ML IV STA (13:37)
--- NOTE | 2016-11-15 13:51 | ERD ---
ER Documentation Chief Complaint Date/Time DATE: 11/15/16 TIME: 13:49 Chief Complaint SENT FROM SNF FOR EVAL OF SOB STARTED LAST SUNDAY. HX OF COPD HPI Patient is an 86-year-old female with history of COPD who was sent from a senior living for hypoxia to 84-85% this morning. The patient was on 7 L by nasal cannula, and was noted to still have hypoxia. She resolved to 96% with 10 L by simple facemask. The patient denies dyspnea, reports having mild nonproductive cough. She denies fever. She reports 5 days of gradual onset, constant, moderate generalized fatigue and lightheadedness. She denies chest pain, denies dysuria, denies vomiting or diarrhea. She reports poor oral intake. ROS All systems reviewed and are negative except as per history of present illness. Medications Home Meds Reported Medications Lorazepam* (Lorazepam*) 0.5 Mg Tablet, 0.5 MG PO HS Y for ANXIETY, TAB 11/15/16 Atorvastatin Calcium* (Atorvastatin Calcium*) 20 Mg Tablet, 20 MG PO QHS, #30 TAB 11/15/16 Furosemide* (Furosemide*) 40 Mg Tablet, 40 MG PO DAILY, TAB 11/15/16 Sertraline Hcl* (Zoloft*) 100 Mg Tablet, 100 MG PO QHS, #30 TAB 09/29/16 Salmeterol Xinaf/Fluticasone* (Advair*) 250-50 Diskus Inhaler, 1 INH INH BID, INH 02/13/15 Dorzolamide-Timolol* (Cosopt*) 2%-0.5% Soln, 1 DROP LEFT EYE BID, BOTTLE 02/01/15 Latanoprost (Xalatan) 2.5 Ml Drops, 1 DROP LEFT EYE DAILY 02/01/15 Levothyroxine Sodium* (Levothyroxine Sodium*) 75 Mcg Tablet, 75 MCG PO DAILY, TAB 02/01/15 Discontinued Reported Medications Buspirone Hcl* (Buspar*) 5 Mg Tab, 5 MG PO BID, TAB 02/01/15 Mirabegron (Mybetriq) 25 Mg Tab.er.24h, 25 MG PO DAILY, TAB 02/01/15 Lorazepam* (Ativan*) 0.5 Mg Tablet, 0.5 MG PO HS Y for ANXIETY, TAB 02/01/15 Discontinued Scripts Levofloxacin* (Levofloxacin*) 750 Mg Tablet, 750 MG PO DAILY for 7 Days, TAB Prov:LUIS DANIEL MICHEL S. 09/08/16 Furosemide* (Furosemide*) 40 Mg Tablet, 20 MG PO DAILY@06, #30 TAB 1 Refill Prov:LUIS DANIEL MICHEL S. 09/08/16 Allergies Allergies: Coded Allergies: No Known Allergy (Unverified , 11/15/16) PMhx/Soc Past medical history: Pleural effusion, COPD, depression, anxiety, diastolic CHF , hypertension, glaucoma, hypothyroidism Past surgical history: Surgery for small bowel obstruction, appendectomy Social history: Former smoker, no current alcohol or tobacco. Lives in senior living. History of Surgery: Yes (lap 09/2016) Anesthesia Reaction: Yes (BP went way down) Hx Neurological Disorder: No Hx Respiratory Disorders: Yes (emphysema, COPD) Hx Cardiac Disorders: Yes (HTN, CHF) Hx Psychiatric Problems: Yes (depression) Hx Miscellaneous Medical Probl: Yes (see notes) Hx Alcohol Use: No Hx Substance Use: No Hx Tobacco Use: Yes FmHx Family History: No coronary disease, No diabetes Physical Exam Vitals Vital Signs Date Time Temp Pulse Resp B/P Pulse Ox O2 Delivery O2 Flow Rate FiO2 11/15/16 16:00 105 20 125/61 95 Mask 10.0 11/15/16 14:31 Simple Mask 10.0 11/15/16 14:31 Simple Mask 10 11/15/16 13:32 96.4 110 20 120/44 97 Physical Exam Const: Alert, no acute distress Head: Atraumatic Eyes: Normal Conjunctiva, mild pallor, no icterus ENT: Normal External Ears, Nose and Mouth. Dry mucous membranes Neck: Full range of motion. No JVD. No meningismus. Resp: Clear to auscultation bilaterally, no wheezes, no rales Cardio: Regular rate and rhythm, no murmurs Abd: Soft, non tender, non distended. No guarding Skin: No petechiae or rashes Back: No midline or flank tenderness Ext: No cyanosis, or edema Neur: Awake and alert, cranial nerves II through XII intact bilaterally, moves and feels 4 extremities appropriately. Psych: Normal Mood and Affect Result Diagram: 11/15/16 1355 11/15/16 1355 Results 24 hrs Laboratory Tests Test 11/15/16 13:55 11/15/16 14:45 White Blood Count 20.010^3/ul Red Blood Count 3.6010^6/ul Hemoglobin 9.9g/dl Hematocrit 31.9% Mean Corpuscular Volume 88.6fl Mean Corpuscular Hemoglobin 27.5pg Mean Corpuscular Hemoglobin Concent 31.0g/dl Red Cell Distribution Width 14.7% Platelet Count 37866^3/UL Mean Platelet Volume 10.0fl Neutrophils % 75.2% Lymphocytes % 13.3% Monocytes % 10.4% Eosinophils % 0.0% Basophils % 0.2% Nucleated Red Blood Cells % 0.0/100WBC Neutrophils # 15.010^3/ul Lymphocytes # 2.710^3/ul Monocytes # 2.110^3/ul Eosinophils # 0.010^3/ul Basophils # 0.010^3/ul Nucleated Red Blood Cells # 0.010^3/ul Prothrombin Time 14.9Sec Prothrombin Time Ratio 1.2 INR International Normalized Ratio 1.16 Activated Partial Thromboplast Time 35.3Sec Sodium Level 134mmol/L Potassium Level 3.7mmol/L Chloride Level 94mmol/L Carbon Dioxide Level 29mmol/L Anion Gap 15 Blood Urea Nitrogen 23mg/dl Creatinine 0.72mg/dl Glucose Level 118mg/dl Calcium Level 9.0mg/dl Total Bilirubin 0.0mg/dl Direct Bilirubin 0.00mg/dl Indirect Bilirubin 0.0mg/dl Aspartate Amino Transf (AST/SGOT) 18IU/L Alanine Aminotransferase (ALT/SGPT) 18IU/L Alkaline Phosphatase 138IU/L Troponin I < 0.012ng/ml B-Type Natriuretic Peptide 1680PG/ML Total Protein 7.6g/dl Albumin 3.2g/dl Globulin 4.40g/dl Albumin/Globulin Ratio 0.72 Urine Color LT. YELLOW Urine Clarity CLEAR Urine pH 6.0 Urine Specific [place] 1.010 Urine Ketones NEGATIVE Urine Nitrite NEGATIVE Urine Bilirubin NEGATIVE Urine Urobilinogen 0.2 E.U./dL Urine Leukocyte Esterase 1+ Urine Microscopic RBC 0-2/HPF Urine Microscopic WBC 2-5/HPF Urine Squamous Epithelial Cells RARE Urine Bacteria RARE Urine Yeast RARE Urine Hemoglobin 1+ Urine Glucose NEGATIVE% Urine Total Protein TRACE Current Medications Medications (Trade) Dose Ordered Sig/Stephanie Route PRN Reason Start Time Stop Time Status Last Admin Dose Admin Sodium Chloride 500 ml @ 500 mls/hr Q1H STAT IV 11/15/16 13:37 11/15/16 14:36 DC 11/15/16 13:57 Cefepime HCl (Maxipime 2gm/50 ml (Pmx)) 50 ml @ 100 mls/hr ONCE ONCE IVPB 11/15/16 15:30 11/15/16 15:59 DC 11/15/16 15:32 Sodium Chloride (NS) 1,860 ml BOLUS OVER 2 HOURS STAT IV* 11/15/16 15:07 11/15/16 15:09 DC 11/15/16 15:35 Ondansetron HCl (Zofran Inj) 4 mg ER BRIDGE PRN IV NAUSEA AND/OR VOMITING 11/15/16 17:00 11/16/16 16:59 Acetaminophen (Tylenol Tab) 650 mg ER BRIDGE PRN PO MILD PAIN/FEVER 11/15/16 17:00 11/16/16 16:59 Procedures/MDM EKG read by me: Time 1423, rate 104 Rhythm: Sinus tachycardia [place]: Left axis deviation Intervals: Normal ST-T waves: Nonspecific ST-T wave changes do not appear ischemic Ectopy: No Q-waves: No Impression: No evidence of ischemia or arrhythmia MDM: Patient is a 86-year-old female sent from a half-way facility with diagnosis of sepsis with unknown source and COPD. The patient was found to have hypoxia on 7 L oxygen by nasal cannula this morning. In the ER she is found to have infiltrates in bilateral lungs on chest x-ray. She does have leukocytosis. She is given IV fluids for possible sepsis, cultures were sent and a lactic acid is pending. She was given cefepime for healthcare associated pneumonia. Additional antibiotics can be added per ID protocol. Patient has normal blood pressure. She was given a fluid bolus at slow rate due to underlying diastolic CHF. Patient did not have significant respiratory distress and was satting well on 10 L by simple facemask. I discussed the case with Dr. Gaines, who requested admission to the hospitalist. I discussed the case with Dr. Michel, who will admit the patient. Departure Diagnosis: Primary Impression: Pneumonia Pneumonia type: due to unspecified organism Laterality: bilateral Lung location: unspecified part of lung Qualified Code: J18.9 - Pneumonia of both lungs due to infectious organism, unspecified part of lung Additional Impression: Hypoxemia Condition: HAILEY Mauricio MD Nov 15, 2016 13:51
[2016-11-15] MEDS ORDERED: FURO40TA4 PO (14:09)
[2016-11-15] MEDS ORDERED: LORA0.5T PO (14:12)
[2016-11-15] MEDS ORDERED: ATOR20TA38 PO (14:12)
[2016-11-15 14:17] LABS: ADD SCAN DIFF NO
[2016-11-15 14:21] LABS: ABNORMAL IP MESSAGE 1; BASOPHILS % 0.2 % (0.0-2.0); HEMATOCRIT 31.9 % (37.0-47.0); HEMOGLOBIN 9.9 g/dl (12.0-16.0); LYMPHOCYTES # 2.7 10^3/ul (0.8-2.9); LYMPHOCYTES % 13.3 % (15.0-51.0); MEAN CORPUSCULAR HEMOGLOBIN 27.5 pg (29.0-33.0); MEAN CORPUSCULAR VOLUME 88.6 fl (82.0-101.0); MONOCYTE # 2.1 10^3/ul (0.3-0.9); MONOCYTES % 10.4 % (0.0-11.0); NEUTROPHILS % 75.2 % (39.0-77.0); PLATELET COUNT 281 10^3/UL (140-415); RED CELL DISTRIBUTION WIDTH 14.7 % (11.5-14.5)
--- NOTE | 2016-11-15 14:27 | RADRPT ---
PROCEDURE: XR Chest 1 View. CLINICAL INDICATION: Shortness of breath TECHNIQUE: AP view of the chest was obtained. COMPARISON: October 11, 2016 FINDINGS: The heart size is within normal limits. Calcified atherosclerosis is noted in the aorta. Chronic in terstitial prominence is seen throughout both lungs. Atelectasis is noted at the left lung base. S uperimposed potential alveolar infiltrates are identified in the right lower lobe and periphery of t he left upper lobe. The osseous structures are osteopenic, but appear grossly intact. IMPRESSION: Calcified atherosclerosis in the aorta. Chronic diffuse interstitial prominence in both lungs. Potential superimposed patchy alveolar infiltrates in the right lower lobe and periphery of the left upper lobe. RPTAT: AA .Rogelio Daniels MD, MD Date Time Electronically viewed and signed by .Rogelio Daniels MD, on 11/15/2016 14:27 .P/
[2016-11-15 14:32] LABS: INR 1.16; PROTIME 14.9 Sec (12.2-14.2); PT RATIO 1.2
[2016-11-15 14:33] LABS: PARTIAL THROMBOPLASTIN TIME 35.3 Sec (25.0-35.0)
[2016-11-15 14:34] LABS: ALANINE AMINOTRANSFERASE 18 IU/L (13-69); ALBUMIN 3.2 g/dl (3.3-4.9); ALBUMIN/GLOBULIN RATIO 0.72; ALKALINE PHOSPHATASE 138 IU/L (42-121); ANION GAP 15 (8-16); ASPARTATE AMINO TRANSFERASE 18 IU/L (15-46); BLOOD UREA NITROGEN 23 mg/dl (7-20); CARBON DIOXIDE 29 mmol/L (21-31); CHLORIDE 94 mmol/L (97-110); CREATININE 0.72 mg/dl (0.44-1.00); GLUCOSE 118 mg/dl (70-220); POTASSIUM 3.7 mmol/L (3.5-5.1); SODIUM 134 mmol/L (135-144); TOTAL PROTEIN 7.6 g/dl (6.1-8.1)
[2016-11-15 14:45] LABS: B-TYPE NATRIURETIC PEPTIDE 1680 PG/ML (0-450)
[2016-11-15 14:46] LABS: TROPONIN-I < 0.012 ng/ml (0.00-0.12)
[2016-11-15 14:58] LABS: ADD UMIC YES; URINE BILIRUBIN (Dip) NEGATIVE (NEGATIVE); URINE BLOOD (Dip) 1+ (NEGATIVE); URINE COLOR LT. YELLOW (YELLOW); URINE GLUCOSE (Dip) NEGATIVE (NEGATIVE); URINE KETONES (Dip) NEGATIVE (NEGATIVE); URINE LEUKOCYTE ESTERASE (Dip) 1+ (NEGATIVE); URINE NITRITE (Dip) NEGATIVE (NEGATIVE); URINE TOTAL PROTEIN (Dip) TRACE (NEGATIVE); URINE UROBILINOGEN (Dip) 0.2 E.U./dL (0.1-1.0)
[2016-11-15] MEDS ORDERED: SODIUM CHLORIDE 0.9% 1L BAG IV* STA (15:07)
[2016-11-15 15:17] LABS: BACTERIA,URINE RARE; SQUAMOUS EPITHELIAL CELL,UR RARE; URINE RBCS 0-2 /HPF (0)
[2016-11-15] MEDS ORDERED: CEFEPIME 2GM/50 ML (PMX) 50 ML IVPB ONE (15:30)
[2016-11-15] MEDS ORDERED: hydrALAzine 20 MG INJ IV PRN (17:00)
[2016-11-15] MEDS ORDERED: NA PHOSPHATE/BIPHOS 133 ML ENEMA PR PRN (17:00)
[2016-11-15] MEDS ORDERED: LORAZEPAM 2 MG INJ IV PRN (17:00)
[2016-11-15] MEDS ORDERED: ALBUTEROL/IPRATROPIUM (NEB) 3 ML AMP HHN PRN (17:00)
[2016-11-15] MEDS ORDERED: ONDANSETRON 4 MG INJ IV PRN ×2 (17:00)
[2016-11-15] MEDS ORDERED: LORAZEPAM 0.5 MG TAB PO PRN (17:00)
[2016-11-15] MEDS ORDERED: MAGNESIUM HYDROXIDE 30ML CUP PO PRN (17:00)
[2016-11-15] MEDS ORDERED: NITROGLYCERIN (SL) 0.4 MG TAB SL PRN (17:00)
[2016-11-15] MEDS ORDERED: morphine 2 MG INJ IV PRN (17:00)
[2016-11-15] MEDS ORDERED: NACL 0.9% 3 ML SYG IV SCH (17:00)
[2016-11-15] MEDS ORDERED: VANCOMYCIN IV PER PHARMACY XX SCH (17:00)
[2016-11-15] MEDS ORDERED: ACETAMINOPHEN 325 MG TAB PO PRN ×2 (17:00)
[2016-11-15] MEDS ORDERED: DOCUSATE SODIUM 100 MG CAP PO PRN (17:00)
[2016-11-15] MEDS: VANCOMYCIN 1 GM in NS 250 ML IVPB SCH (17:54)
[2016-11-15 19:00] VITALS: TEMP 99.1
--- NOTE | 2016-11-15 20:00 | HP ---
DATE OF ADMISSION: 11/15/2016 CHIEF COMPLAINT: This is an 86-year-old female who was [facility] from [facility] for shortness of b reath and hypoxia. HISTORY OF PRESENT ILLNESS: An 86-year-old female with past medical history of emphysema, COPD, hyp ertension, CHF, irritable bowel syndrome, prior sepsis, and depression, who was sent in from nursing facility because she was having hypoxia. Apparently, her oxygen saturations were in mid 80 range t here this morning. At that time, she was on 7 liters of nasal cannula oxygen, but still having hypo vincenzo symptoms. When she was placed on simple mask, her saturations evolved to the mid 90 range. She has been having mild nonproductive cough, but no fevers. No upper or lower GI bleeding, no diarrhe a, no constipation, no chest pain, no headaches. She has, however, been having some generalized fat igue and lightheadedness symptoms as well. No dysuria. When she came in today, she was found with elevated white blood cell count of 20,000 and her chest x-ray did show signs of pneumonia, although her BNP was also slightly elevated at 1700 as well. The patient was recently here at our hospital f rom 09/19/2016 to 10/11/2016. At that time, she was treated for small-bowel obstruction as well as abdominal abscess x3 at that time. PAST MEDICAL HISTORY: As stated above. ALLERGIES: NO KNOWN DRUG ALLERGIES. HOME MEDICATIONS: 1. Atorvastatin 20 mg at bedtime. 2. Lorazepam 0.5 mg p.o. at bedtime p.r.n. 3. Zoloft 100 mg at bedtime. 4. Lasix 40 mg daily. 5. Advair 250/50 inhaled b.i.d. 6. Cosopt eye drops in the left eye b.i.d. 7. Xalatan eyedrops in the left eye daily. 8. Levothyroxine 75 mcg daily. PAST SURGICAL HISTORY: Again, she had laparoscopic appendectomy in August of this year and she als o had abdominal abscess drained by interventional radiology and exploratory laparotomy around that t maria as well with abdominal washout. SOCIAL HISTORY: Former smoker. Denies any alcohol use or current tobacco use. [facility] in a [facility]. FAMILY HISTORY: Noncontributory. PHYSICAL EXAMINATION: VITAL SIGNS: T-max 96.4, pulse 105 to 110, respirations 20, blood pressure 120 to 125 systolic over 44 to 61 diastolic, saturating at 97% on simple mask on 10 liters. GENERAL: The patient is lying in bed, slightly lethargic, but alert, in no acute distress. HEENT: Pupils equal, round, react to light. Extraocular muscles intact. NECK: Supple. No thyromegaly. LUNGS: Clear to auscultation bilaterally. CARDIOVASCULAR: S1, S2 heard. No rubs or gallops. ABDOMEN: Soft, nontender, nondistended. Normal bowel sounds. No rebound or guarding. MUSCULOSKELETAL: No lower extremity edema bilaterally. NEUROLOGIC: No focal deficits. LABORATORIES: WBC 20,000; hemoglobin 9.9, hematocrit 31.9, platelets 281. Sodium 134, potassium 3. 7, chloride 94, CO2 of 29, BUN 23, creatinine 0.7, glucose 118. Her alkaline phosphatase is a littl e high at 138. BNP is 1680. Troponin is negative x1. Free T4 is a little high at 2.18. Lactic ac id is normal at 2.1. Her UA shows 1+ leukocyte esterase positive. IMAGING: Chest x-ray did show chronic diffuse interstitial prominence in both lungs, potential supe rimposed patchy alveolar infiltrates in the right lower lobe and periphery of the left upper lobe. ASSESSMENT AND PLAN: An 86-year-old female coming in with hypoxia and signs of upper respiratory in fection/pneumonia. 1. Hypoxia, again, most likely secondary to the patient's history of chronic obstructive pulmonary disease along with upper respiratory infection, most likely pneumonia. Will admit the patient, nargis qiu for healthcare-associated pneumonia including cefepime and vancomycin. Check TSH, A1c, lipid panel. Continue low-dose IV fluids with half normal saline. Follow labs in the morning. Tylenol p .r.n. pain and fevers as well. DuoNeb p.r.n. for shortness of breath or any wheezing. 2. History of essential hypertension. Blood pressure is presently stable. Continue to monitor for now. She is on hydralazine p.r.n. 3. History of chronic obstructive pulmonary disease. Again, see #1. She will be on DuoNebs p.r.n. Consider pulmonary consult as well. 4. History of depression. She is on Ativan p.r.n. for any anxiety. 5. History of small-bowel obstruction. No present issues. Continue to monitor for now. She will be n.p.o. for now. 6. History of abdominal abscess x3. Continue to monitor for now. She is on broad spectrum antibio tics for her upper respiratory infection. 7. Urinary tract infection. Again her urinalysis shows positive urinary tract infection. She is o n broad spectrum antibiotics to cover her upper respiratory infection. Continue the same antibiotic s. Follow up final culture results as well. 8. Signs of sepsis. Again, she does have elevated white count and tachycardia. No fevers, however . Again, source could be secondary to upper respiratory infection and also urinary tract infection or both. Again, see #1. Continue broad spectrum antibiotics and IV fluids. Monitor labs daily. 9. Gastrointestinal prophylaxis. H2 gavin. 10. Deep venous thrombosis prophylaxis. She will be on sequential compression devices. Dictated By: LUIS DANIEL ARANGO/VU Conf#: [id number] DID#: [id number]
[2016-11-15 20:08] VITALS: PULSE 123
[2016-11-15 20:40] VITALS: BP 153/72; RESP 24
[2016-11-15] MEDS ORDERED: ATORVASTATIN 20 MG TAB PO SCH (21:00)
[2016-11-15 21:09] VITALS: Ht 160 cm; Wt 53.8 kg
[2016-11-15] MEDS: FAMOTIDINE 20 MG INJ IV SCH (22:07)
[2016-11-15] MEDS: SOD CHLORIDE 0.45% 1,000 ML IV SCH (22:07)
[2016-11-15] MEDS: DORZOLAMIDE/TIMOLOL 10 ML OPH LEFT EYE SCH (22:14)
[2016-11-15] MEDS: SERTRALINE 100 MG TAB PO SCH (22:14)
[2016-11-15] MEDS: SALMETEROL/FLUTICASONE 250/50 INHA INH SCH (22:14)
[2016-11-15] MEDS ORDERED: ZOLPIDEM 5 MG TAB PO PRN (22:30)
[2016-11-16] VITALS (12 sets, daily range): BP systolic 125–146; BP diastolic 58–77; PULSE 89–105; RESP 16–22
[2016-11-16] MEDS ORDERED: CEFEPIME 2GM/50 ML (PMX) 50 ML IVPB SCH (01:00)
[2016-11-16] MEDS: SOD CHLORIDE 0.45% 1,000 ML IV SCH ×3 (06:20→19:40)
[2016-11-16 08:37] LABS: CHOL/HDL RATIO 4.6 RATIO
[2016-11-16] MEDS: DORZOLAMIDE/TIMOLOL 10 ML OPH LEFT EYE SCH ×3 (09:00→21:04)
[2016-11-16] MEDS: LEVOTHYROXINE 75 MCG TAB PO SCH (09:00)
[2016-11-16 09:06] LABS: ADD SCAN DIFF NO
[2016-11-16 09:09] LABS: THYROID STIMULATING HORMONE 0.84 MIU/L (0.465-4.680)
[2016-11-16 09:30] LABS: POTASSIUM 3.2 mmol/L (3.5-5.1)
[2016-11-16 09:33] LABS: CREATININE 0.55 mg/dl (0.44-1.00)
[2016-11-16 09:34] LABS: BASOPHILS % 0.2 % (0.0-2.0); CALCIUM 7.9 mg/dl (8.4-10.2); EOSINOPHILS % 0.1 % (0.0-7.0); HEMATOCRIT 27.4 % (37.0-47.0); HEMOGLOBIN 8.7 g/dl (12.0-16.0); LYMPHOCYTES # 1.9 10^3/ul (0.8-2.9); LYMPHOCYTES % 13.3 % (15.0-51.0); MAGNESIUM 1.4 mg/dl (1.7-2.5); MEAN CORPUSCULAR HGB CONC 31.8 g/dl (32.0-37.0); MEAN CORPUSCULAR VOLUME 88.1 fl (82.0-101.0); MEAN PLATELET VOLUME 10.1 fl (7.4-10.4); MONOCYTE # 1.5 10^3/ul (0.3-0.9); MONOCYTES % 10.6 % (0.0-11.0); NEUTROPHIL # 10.4 10^3/ul (1.6-7.5); NEUTROPHILS % 74.9 % (39.0-77.0); PHOSPHORUS 3.7 mg/dl (2.5-4.9); PLATELET COUNT 281 10^3/UL (140-415); RED BLOOD COUNT 3.11 10^6/ul (4.20-5.40); RED CELL DISTRIBUTION WIDTH 14.8 % (11.5-14.5); WHITE BLOOD COUNT 13.9 10^3/ul (4.8-10.8)
[2016-11-16] MEDS: FAMOTIDINE 20 MG INJ IV SCH (09:41)
[2016-11-16] MEDS: LATANOPROST 0.005% 2.5 ML OPH LEFT EYE SCH (09:41)
[2016-11-16] MEDS: SALMETEROL/FLUTICASONE 250/50 INHA INH SCH ×2 (09:41→21:04)
--- NOTE | 2016-11-16 11:59 | PN ---
Date/Time of Note Date/Time of Note DATE: 11/16/16 TIME: 11:54 Assessment/Plan VTE Prophylaxis VTE Prophylaxis Intervention: LMWH Lines/Catheters IV [facility]ter Type [facility]from [facility] Saline Lock Urinary Cath still in place: No Assessment/Plan Chief Complaint/Hosp Course S: 86-yr F w shortness of breath from sniff. Cough fever? O: Vss; presently some sinus tach. PE No pallor adenopathy icterus Reg Diminished bs bilat. No tachypnea Bs diminished, mild tender, nd, no R/R/G. Scars noted Ext mild hypotonia A/P: 1. Dyspnea. Ro pneumonia/healthcare associated? Stable consult ID 2. Recent surgery- Extensive loculated RLQ interloop abscess/ sbo w rlq transition point 3. Ftt 4. Bilateral pleural effusion 5. History of VRE UTI? 6. Chronic COPD 7. Chronic CHF? 8. Chronic hypertension/dyslipidemia 9. Chronic IBS 10. Chronic depression 11. Chronic glaucoma 12. Past tobacco 13. Chronic anemia Problems: Exam/Review of Systems Vital Signs Vitals Vital Signs Date Time Temp Pulse Resp B/P Pulse Ox O2 Delivery O2 Flow Rate FiO2 11/16/16 11:29 98.2 66 18 146/67 97 11/15/16 21:00 Simple Mask 5.0 Results Result Diagram: 11/16/16 0750 11/16/16 0750 Results 24 hrs Laboratory Tests Test 11/15/16 13:55 11/15/16 14:45 11/15/16 16:40 11/16/16 07:50 White Blood Count 20.0 #H 13.9 #H Red Blood Count 3.60 L 3.11 L Hemoglobin 9.9 L 8.7 L Hematocrit 31.9 L 27.4 L Mean Corpuscular Volume 88.6 88.1 Mean Corpuscular Hemoglobin 27.5 L 28.0 L Mean Corpuscular Hemoglobin Concent 31.0 L 31.8 L Red Cell Distribution Width 14.7 H 14.8 H Platelet Count 281 281 Mean Platelet Volume 10.0 10.1 Neutrophils % 75.2 74.9 Lymphocytes % 13.3 L 13.3 L Monocytes % 10.4 10.6 Eosinophils % 0.0 0.1 Basophils % 0.2 0.2 Nucleated Red Blood Cells % 0.0 0.0 Neutrophils # 15.0 H 10.4 H Lymphocytes # 2.7 1.9 Monocytes # 2.1 H 1.5 H Eosinophils # 0.0 0.0 Basophils # 0.0 0.0 Nucleated Red Blood Cells # 0.0 0.0 Prothrombin Time 14.9 H Prothrombin Time Ratio 1.2 INR International Normalized Ratio 1.16 Activated Partial Thromboplast Time 35.3 H Sodium Level 134 L 135 Potassium Level 3.7 3.2 L Chloride Level 94 L 96 L Carbon Dioxide Level 29 24 Anion Gap 15 18 H Blood Urea Nitrogen 23 H 17 Creatinine 0.72 0.55 Glucose Level 118 99 Calcium Level 9.0 7.9 L Total Bilirubin 0.0 L Direct Bilirubin 0.00 Indirect Bilirubin 0.0 Aspartate Amino Transf (AST/SGOT) 18 Alanine Aminotransferase (ALT/SGPT) 18 Alkaline Phosphatase 138 H Troponin I < 0.012 B-Type Natriuretic Peptide 1680 H Total Protein 7.6 Albumin 3.2 L Globulin 4.40 H Albumin/Globulin Ratio 0.72 Urine Color LT. YELLOW Urine Clarity CLEAR Urine pH 6.0 Urine Specific [place] 1.010 Urine Ketones NEGATIVE Urine Nitrite NEGATIVE Urine Bilirubin NEGATIVE Urine Urobilinogen 0.2 E.U./dL Urine Leukocyte Esterase 1+ H Urine Microscopic RBC 0-2 Urine Microscopic WBC 2-5 Urine Squamous Epithelial Cells RARE Urine Bacteria RARE Urine Yeast RARE Urine Hemoglobin 1+ H Urine Glucose NEGATIVE Urine Total Protein TRACE Lactic Acid Level 2.1 Free Thyroxine 2.18 H Hemoglobin A1c 5.5 Phosphorus Level 3.7 Magnesium Level 1.4 L Triglycerides Level 116 Cholesterol Level 97 L LDL Cholesterol, Calculated 53 HDL Cholesterol 21 L Cholesterol/HDL Ratio 4.6 Thyroid Stimulating Hormone (TSH) 0.840 Medications Medications Current Medications Ondansetron HCl (Zofran Inj) 4 mg Q6H PRN IV NAUSEA AND/OR VOMITING; Start 07/22 at 17:00 Acetaminophen (Tylenol Tab) 650 mg Q6H PRN PO PAIN LEVEL 1-3 OR FEVER; Start at 17:00 Acetaminophen/ Hydrocodone Bitart ([place]ctor (5/325)) 1 tab Q6H PRN PO MODERATE PAIN LEVEL 4-6; Start 11/15/16 at 17:00 Morphine Sulfate (morphine) 2 mg Q4H PRN IV SEVERE PAIN LEVEL 7-10; Start 11/15 at 17:00 Docusate Sodium (Colace) 100 mg Q12H PRN PO CONSTIPATION; Start 11/15/16 at 17: 00 Magnesium Hydroxide (Milk Of Mag) 30 ml DAILY PRN PO CONSTIPATION; Start at 17:00 Sodium Biphosphate/ Sodium Phosphate (Fleet Enema) 133 ml DAILY PRN ND CONSTIPATION; Start 11/15/16 at 17:00 Famotidine 20 mg 20 mg Q12 IV Last administered on 11/16/16 09:41; Admin Dose 20 MG; Start 11/15/16 at 21:00 Sodium Chloride (1/2 NS) 1,000 ml @ 75 mls/hr [id number] IV Last administered on 11/15/16 22:07; Admin Dose 75 MLS/HR; Start 11/15/16 at 17:00 Lorazepam (Ativan) 0.5 mg Q6H PRN IV ANXIETY; Start 11/15/16 at 17:00 Vancomycin HCl (Vanco Iv Per Pharmacy) VANCOMYCIN PER PHARMACY NOTE XX ; Start 11/15/16 at 17:00 Hydralazine HCl (Apresoline) 10 mg Q6H PRN IV ELEVATED BLOOD PRESSURE; Start at 17:00 Clonidine (Catapres) 0.1 mg Q6H PRN PO ELEVATED BLOOD PRESSURE; Start 11/15/16 at 17:00 Nitroglycerin (Nitroglycerin (Sl Tab) 0.4 Mg) 1 tab Q5M PRN SL ANGINA; Start at 17:00 Atorvastatin Calcium (Lipitor) 20 mg QHS PO Last administered on 11/15/16 22: 07; Admin Dose 20 MG; Start 11/15/16 at 21:00 Dorzolamide/ Timolol (Cosopt) 1 drop BID LEFT EYE Last administered on 22:14; Admin Dose 1 DROP; Start 11/15/16 at 21:00 Latanoprost (Xalatan) 1 drop DAILY LEFT EYE Last administered on 11/16/16 09: 41; Admin Dose 1 DROP; Start 11/16/16 at 09:00 Levothyroxine Sodium (Synthroid) 75 mcg DAILY PO ; Start 11/16/16 at 09:00 Lorazepam (Ativan) 0.5 mg HS PRN PO ANXIETY; Start 11/15/16 at 17:00 Salmeterol Xinafoate/ Fluticasone (Advair 250/50 Diskus) 1 inh BID INH Last administered on 11/16/16 09:41; Admin Dose 1 INH; Start 11/15/16 at 21:00 Sertraline HCl 100 mg 100 mg QHS PO Last administered on 11/15/16 22:14; Admin Dose 100 MG; Start 11/15/16 at 21:00 Vancomycin HCl (Vancocin) 250 ml @ 125 mls/hr Q24H IVPB Last administered on 17:54; Admin Dose 125 MLS/HR; Start 11/15/16 at 17:30 Zolpidem Tartrate 10 mg 10 mg HS PRN PO INSOMNIA Last administered on 22:14; Admin Dose 10 MG; Start 11/15/16 at 22:30 Cefepime HCl (Maxipime 2gm/50 ml (Pmx)) 50 ml @ 100 mls/hr Q24H IVPB ; Start at 01:00 GALDINO HOPKINS MD Nov 16, 2016 11:59
[2016-11-16] MEDS ORDERED: FUROSEMIDE 40 MG INJ IV ONE (14:00)
--- NOTE | 2016-11-16 15:53 | RADRPT ---
PROCEDURE: US bilateral lower extremity veins. CLINICAL INDICATION: Bilateral leg pain and swelling. TECHNIQUE: Multiple longitudinal and transverse images of the bilateral lower extremity veins were obtained with bynum scale and color Doppler imaging. The common femoral vein, femoral vein, and popl iteal vein were evaluated. 2D grayscale measurements with compression sonography, color Doppler, and pulsed Doppler with augmentation. COMPARISON: No prior studies are available for comparison. FINDINGS: The right common femoral, femoral and popliteal veins are normally compressible throughout. Color f low demonstrates normal filling of the vessels. Normal waveforms are visualized and there is normal response to augmentation. On the left side, there is thrombosis of the common femoral vein, femoral vein, popliteal vein. The veins are dilated and contain echogenic thrombus. IMPRESSION: 1. Normal right lower extremity venous Doppler. 2. Acute deep venous thrombosis of the left common femoral vein, femoral vein, and popliteal vein. Call report: A call report of the findings was made to Dr. Ramirez on 11/16/2016 at 1550 hours. RPTAT: QQ .Elvis Henderson MD, MD Date Time Electronically viewed and signed by .Elvis Henderson MD, on 11/16/2016 15:53 .R/
--- NOTE | 2016-11-16 16:58 | CONS ---
DATE OF ADMISSION: 11/15/2016 DATE OF CONSULTATION: 11/16/2016 TYPE OF CONSULTATION: Infectious Disease. REASON FOR CONSULTATION: Antibiotic management. HISTORY OF PRESENT ILLNESS: Kristin Aguila is an 86-year-old female who was sent from [facility] with shortness of breath and hypoxemia. Her past problems include: 1. Chronic obstructive pulmonary disease with emphysema. 2. Hypertension. 3. 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 4. Irritable bowel syndrome. 5. Sepsis. 6. Depression. The patient's oxygen saturation was in the mid 80s. On the , she was on 7 liters of nasal cannu la. She was placed on a simple mask. She has a mild nonproductive cough without fevers. She had s ome general fatigue and lightheadedness as well. Her white count was elevated at 20,000. A chest x -ray showed signs of pneumonia. Patient was recently hospitalized in September from 09/19 to 017. She had small-bowel obstruction as well as abdominal abscess x3 at that time. Currently, her white count is 20,000, H and H 9.9 and 31.9, platelet count 281,000. BUN and creatinine 23/0.7 and glucose of 118. PAST SURGICAL HISTORY: She is positive for laparoscopic appendectomy. In August of this year, she had an abdominal abscess drained by interventional radiology and an exploratory laparotomy around t hat time, as well as abdominal washout. FAMILY HISTORY: Noncontributory. SOCIAL HISTORY: She is a former smoker. She does not drink or abuse drugs. ALLERGIES: NONE TO PENICILLIN, SULFA OR FOODS. MEDICATIONS: Per chart. REVIEW OF SYSTEMS: As per HPI. PHYSICAL EXAMINATION: GENERAL: The patient is an elderly-appearing female who is awake, responsive, in no acute distress. VITAL SIGNS: Stable. She is afebrile. She is on 10 liters simple mask, saturating at 97%. SKIN: Without generalized rash. HEENT: Within normal limits. NECK: Supple. LYMPH NODES: None palpable. CHEST: Decreased breath sounds at the bases. HEART: Without murmur or gallop. ABDOMEN: Soft, nontender, without organosplenomegaly or masses. EXTREMITIES: Without cyanosis, clubbing, or edema. RECTAL AND GENITAL: Deferred. NEUROLOGIC: No focal neurological abnormalities. HOSPITAL COURSE: Her chest x-ray shows chronic diffuse interstitial prominence in both lungs, poten tials superimposed patchy alveolar infiltrates in the right lower lobe and periphery of the left low er lobe. Her white count on admission was 20; today it is 13.9. Her urine has 1+ leukocyte esteras e but only 2 to 5 white cells per high powered field. Her BUN and creatinine 17/0.55. Patient was begun on cefepime for hospital acquired or healthcare-associated pneumonia. She is also on vancomyc in until we get cultures back. A CT scan was ordered. Urine cultures preliminary. I will dictate my findings to the hospitalists. Respiratory culture also was ordered. Dictated By: THOMAS CALIXTO MD, JD/VU Conf#: [id number] DID#: [id number]
[2016-11-16] MEDS: VANCOMYCIN 1 GM in NS 250 ML IVPB SCH (17:01)
[2016-11-16] MEDS: ENOXAPARIN 60 MG/0.6 ML SYG SC SCH ×2 (17:08→23:23)
--- NOTE | 2016-11-16 17:28 | RADRPT ---
PROCEDURE: CT Chest without contrast. CLINICAL INDICATION: Cough and shortness of breath. Fever. History of emphysema. TECHNIQUE: Helical axial sections were obtained through the chest without intravenous contrast enh ancement. Coronal and sagittal reformatted images were obtained from the axial source images. Total exam DLP is 201.64 mGy-cm. CTDIvol is 5.25 mGy. One or more of the following dose reduction tech niques were used: Automated exposure control, adjustment of the mA and/or kV according to patient si ze, use of iterative reconstruction technique. COMPARISON: Chest x-ray dated 11/15/2016 FINDINGS: There is dense consolidation in the right upper lobe posteriorly and left upper lobe posteriorly con sistent with pneumonia. There is atelectasis at the lung bases posteriorly with right worse than le ft. The lungs are otherwise clear with no other airspace or interstitial disease. There is no pulmonary nodule or mass lesion. There is no mediastinal or hilar lymphadenopathy or mass. There is no axillary, supraclavicular, or internal mammary lymphadenopathy. The thoracic aorta is not dilated. There is calcification in the aorta consistent with atherosclero sis. The heart size is normal. There is coronary artery calcification. There is a very small pericardia l effusion. There is a moderate right pleural effusion and small left pleural effusion. Images through the upper abdomen demonstrate normal visualized portions of the liver, spleen, and ad renals. There are mild degenerative changes of the spine. There is thoracic scoliosis convex left superiorl y and convex right inferiorly. IMPRESSION: 1. Consolidation bilaterally in the upper lobes consistent with pneumonia with right worse than lef t. 2. Atelectasis at the lung bases posteriorly with right worse than left. 3. Atherosclerosis. 4. Coronary artery calcification. 5. Very small pericardial effusion. 6. Moderate right pleural effusion and small left pleural effusion. 7. Mild degenerative changes of the spine. 8. Thoracic scoliosis convex left superiorly and convex right inferiorly. RPTAT: QQ .Elvis Henderson MD, MD Date Time Electronically viewed and signed by .Elvis Henderson MD, on 11/16/2016 17:28 .R/
[2016-11-16] MEDS: SERTRALINE 100 MG TAB PO SCH (21:04)
[2016-11-16] MEDS: SENNA/DOCUSATE NA (8.6MG/50MG) TAB PO SCH (21:04)
[2016-11-16] MEDS: MIRTAZAPINE 15 MG TAB PO SCH (21:05)
[2016-11-16] MEDS: CEFEPIME 2GM/50 ML (PMX) 50 ML IVPB SCH (23:17)
[2016-11-17] VITALS (12 sets, daily range): BP systolic 140–167; BP diastolic 69–80; PULSE 91–98; RESP 16–20
[2016-11-17] MEDS: PANTOPRAZOLE 40 MG INJ IV SCH (05:50)
[2016-11-17 07:05] LABS: MAGNESIUM 1.5 mg/dl (1.7-2.5); PHOSPHORUS 3.5 mg/dl (2.5-4.9)
[2016-11-17 07:32] LABS: THYROID STIMULATING HORMONE 1.83 MIU/L (0.465-4.680)
[2016-11-17 09:43] LABS: ADD SCAN DIFF NO
[2016-11-17 09:51] LABS: BASOPHILS % 0.3 % (0.0-2.0); EOSINOPHILS # 0.1 10^3/ul (0.0-0.5); EOSINOPHILS % 0.7 % (0.0-7.0); HEMATOCRIT 28.3 % (37.0-47.0); LYMPHOCYTES # 2.5 10^3/ul (0.8-2.9); LYMPHOCYTES % 18.6 % (15.0-51.0); MEAN CORPUSCULAR HEMOGLOBIN 27.8 pg (29.0-33.0); MEAN CORPUSCULAR HGB CONC 31.8 g/dl (32.0-37.0); MEAN CORPUSCULAR VOLUME 87.3 fl (82.0-101.0); MEAN PLATELET VOLUME 10.2 fl (7.4-10.4); MONOCYTE # 1.3 10^3/ul (0.3-0.9); MONOCYTES % 9.3 % (0.0-11.0); NEUTROPHIL # 9.4 10^3/ul (1.6-7.5); NEUTROPHILS % 69.8 % (39.0-77.0); PLATELET COUNT 323 10^3/UL (140-415); RED BLOOD COUNT 3.24 10^6/ul (4.20-5.40); RED CELL DISTRIBUTION WIDTH 14.6 % (11.5-14.5); WHITE BLOOD COUNT 13.5 10^3/ul (4.8-10.8)
[2016-11-17 09:56] LABS: CALCIUM 8.3 mg/dl (8.4-10.2); CREATININE 0.59 mg/dl (0.44-1.00); POTASSIUM 3.3 mmol/L (3.5-5.1)
[2016-11-17] MEDS: SOD CHLORIDE 0.45% 1,000 ML IV SCH ×2 (10:02→14:42)
[2016-11-17] MEDS: DORZOLAMIDE/TIMOLOL 10 ML OPH LEFT EYE SCH ×2 (10:03→21:03)
[2016-11-17] MEDS: SALMETEROL/FLUTICASONE 250/50 INHA INH SCH ×2 (10:04→21:03)
[2016-11-17] MEDS: LACTOBACILLUS RHAMNOSUS CAP PO SCH ×2 (10:11→21:03)
[2016-11-17] MEDS: LEVOTHYROXINE 75 MCG TAB PO SCH (10:11)
[2016-11-17] MEDS: ENOXAPARIN 60 MG/0.6 ML SYG SC SCH ×2 (10:12→21:27)
[2016-11-17] MEDS: LATANOPROST 0.005% 2.5 ML OPH LEFT EYE SCH (10:21)
--- NOTE | 2016-11-17 14:05 | PN ---
Date/Time of Note Date/Time of Note DATE: 11/17/16 TIME: 13:30 Assessment/Plan VTE Prophylaxis VTE Prophylaxis Intervention: LMWH Lines/Catheters Urinary Cath still in place: No Assessment/Plan Chief Complaint/Hosp Course S: 86y F w dyspnea from snf. Cough; no fever? Spoke w Tamara: lost appetite/ early satiety. No n/v/d/fever. ~some phelgm. No cp/leg pain at present. Some recent leg pain/ fww use at snf. Saw psych once. EGD- gastritis 2months ago. 11/17- intermittent abd pain- low/deep in lwr abp. no bm*4d. off Metamucil. no dysuria. Daughter updated. O: Vss PE No pallor/ jvd Reg Dimin bs bilat. No tachypnea Bs dimin, mild tender-suprapubic, nd, no r/r/g. Scars noted Ext mild hypotonia; no Ernestina's. Lt thumb- disloc/ fracture A/P: 1. HAP. Stable cont atb's; st eval, ro aspiration risk. 7-10d Rx; DC to snf sunday. 2. Recent surgery- SP Appy/ Extensive loculated RLQ interloop abscess/ sbo w rlq transition point. Ct now ok. 3. Ftt; snf soon; needs home health/ PT/antibiotics. 4. Bilat Pl Effusion- transudate? will finish hap & dvt Rx . 5. Ho VRE UTI? 6. Chr COPD 7. Chr CHF? echo p 8. Chr htn/DL 9. Chr IBS; Dr Johnson 10. depression 11. Chr glaucoma 12. Past tobacco 13. Chr anemia 14. Ac Lwr ext DVT; stable on lovenox. may cont pt/ot 15. Abd pain; lwr; obstipation?? laxatives vs enema. ambulate/ fiber 16. Lt thumb fracture/dislocation; ortho eval; nwb; pain control. Problems: Cont'd Hospitalization Reason: dyspnea Exam/Review of Systems Vital Signs Vitals Vital Signs Date Time Temp Pulse Resp B/P Pulse Ox O2 Delivery O2 Flow Rate FiO2 11/17/16 12:36 91 11/17/16 12:19 97.0 18 167/80 97 11/17/16 08:30 Simple Mask 5.0 Intake and Output 11/16/16 11/16/16 11/17/16 14:59 22:59 06:59 Intake Total 1000 ml 150 ml 200 ml Balance 1000 ml 150 ml 200 ml Results Result Diagram: 11/17/16 0553 11/17/16 0553 Results 24 hrs Laboratory Tests Test 11/17/16 05:53 White Blood Count 13.5 H Red Blood Count 3.24 L Hemoglobin 9.0 L Hematocrit 28.3 L Mean Corpuscular Volume 87.3 Mean Corpuscular Hemoglobin 27.8 L Mean Corpuscular Hemoglobin Concent 31.8 L Red Cell Distribution Width 14.6 H Platelet Count 323 Mean Platelet Volume 10.2 Neutrophils % 69.8 Lymphocytes % 18.6 Monocytes % 9.3 Eosinophils % 0.7 Basophils % 0.3 Nucleated Red Blood Cells % 0.0 Neutrophils # 9.4 H Lymphocytes # 2.5 Monocytes # 1.3 H Eosinophils # 0.1 Basophils # 0.0 Nucleated Red Blood Cells # 0.0 Sodium Level 133 L Potassium Level 3.3 L Chloride Level 100 Carbon Dioxide Level 26 Anion Gap 10 # Blood Urea Nitrogen 14 Creatinine 0.59 Glucose Level 90 Hemoglobin A1c 5.5 Calcium Level 8.3 L Phosphorus Level 3.5 Magnesium Level 1.5 L Prealbumin 5.6 L Thyroid Stimulating Hormone (TSH) 1.830 Medications Medications Current Medications Ondansetron HCl (Zofran Inj) 4 mg Q6H PRN IV NAUSEA AND/OR VOMITING; Start 07/22 at 17:00 Acetaminophen (Tylenol Tab) 650 mg Q6H PRN PO PAIN LEVEL 1-3 OR FEVER; Start at 17:00 Acetaminophen/ Hydrocodone Bitart ([place] (5/325)) 1 tab Q6H PRN PO MODERATE PAIN LEVEL 4-6; Start 11/15/16 at 17:00 Morphine Sulfate (morphine) 2 mg Q4H PRN IV SEVERE PAIN LEVEL 7-10; Start 11/15 at 17:00 Docusate Sodium (Colace) 100 mg Q12H PRN PO CONSTIPATION; Start 11/15/16 at 17: 00 Magnesium Hydroxide (Milk Of Mag) 30 ml DAILY PRN PO CONSTIPATION; Start at 17:00 Sodium Biphosphate/ Sodium Phosphate 133 ml 133 ml DAILY PRN [place] CONSTIPATION; Start 11/15/16 at 17:00 Sodium Chloride (1/2 NS) 1,000 ml @ 75 mls/hr [id number] IV Last administered on 11/17/16 10:02; Admin Dose 75 MLS/HR; Start 11/15/16 at 17:00 Vancomycin HCl (Vanco Iv Per Pharmacy) VANCOMYCIN PER PHARMACY NOTE XX ; Start 11/15/16 at 17:00 Hydralazine HCl (Apresoline) 10 mg Q6H PRN IV ELEVATED BLOOD PRESSURE; Start at 17:00 Clonidine (Catapres) 0.1 mg Q6H PRN PO ELEVATED BLOOD PRESSURE; Start 11/15/16 at 17:00 Nitroglycerin (Nitroglycerin (Sl Tab) 0.4 Mg) 1 tab Q5M PRN SL ANGINA; Start at 17:00 Dorzolamide/ Timolol (Cosopt) 1 drop BID LEFT EYE Last administered on 10:03; Admin Dose 1 DROP; Start 11/15/16 at 21:00 Latanoprost (Xalatan) 1 drop DAILY LEFT EYE Last administered on 11/17/16 10: 21; Admin Dose 1 DROP; Start 11/16/16 at 09:00 Levothyroxine Sodium (Synthroid) 75 mcg DAILY PO Last administered on 10:11; Admin Dose 75 MCG; Start 11/16/16 at 09:00 Lorazepam (Ativan) 0.5 mg HS PRN PO ANXIETY; Start 11/15/16 at 17:00 Salmeterol Xinafoate/ Fluticasone (Advair 250/50 Diskus) 1 inh BID INH Last administered on 11/17/16 10:04; Admin Dose 1 INH; Start 11/15/16 at 21:00 Sertraline HCl 100 mg 100 mg QHS PO Last administered on 11/16/16 21:04; Admin Dose 100 MG; Start 11/15/16 at 21:00 Vancomycin HCl 250 ml @ 125 mls/hr Q24H IVPB Last administered on 11/16/16 17 :01; Admin Dose 125 MLS/HR; Start 11/15/16 at 17:30 Cefepime HCl (Maxipime 2gm/50 ml (Pmx)) 50 ml @ 100 mls/hr Q24H IVPB Last administered on 11/16/16 23:17; Admin Dose 100 MLS/HR; Start 11/17/16 at 01:00 Senna/Docusate Sodium (Senokot-S) 2 tab HS PO Last administered on 11/16/16 21 :04; Admin Dose 2 TAB; Start 11/16/16 at 21:00 Pantoprazole (Protonix Iv) 40 mg DAILY@06 IV Last administered on 11/17/16 05: 50; Admin Dose 40 MG; Start 11/17/16 at 06:00 Lactobacillus Acidophilus/ Rhamnosus (Culturelle) 1 cap BID PO Last administered on 11/17/16 10:11; Admin Dose 1 CAP; Start 11/17/16 at 09:00 Mirtazapine (Remeron) 7.5 mg HS PO Last administered on 11/16/16 21:05; Admin Dose 7.5 MG; Start 11/16/16 at 21:00 Enoxaparin Sodium (Lovenox) 60 mg Q12 SC Last administered on 11/17/16 10:12; Admin Dose 60 MG; Start 11/16/16 at 16:10 GALDINO HPOKINS MD Nov 17, 2016 14:05
[2016-11-17] MEDS ORDERED: HYDROCODONE/APAP (10/325) TAB PO PRN (14:30)
[2016-11-17] MEDS ORDERED: POTASSIUM CHLORIDE 20 MEQ POWDER FOR ORAL SOLN PO ONE (14:30)
[2016-11-17] MEDS ORDERED: BISACODYL (EC) 5 MG TAB PO ONE (14:30)
[2016-11-17] MEDS ORDERED: MINERAL OIL 133 ML ENEMA PR PRN (14:30)
[2016-11-17] MEDS ORDERED: BISACODYL 10 MG SUPP PR PRN (14:30)
[2016-11-17] MEDS: MAGNESIUM HYDROXIDE 30ML CUP PO SCH ×2 (14:37→21:03)
[2016-11-17] MEDS ORDERED: MAGNESIUM SULFATE 3 GM in SOD CHLORIDE 0.9% 100 ML IVPB ONE (16:00)
--- NOTE | 2016-11-17 16:03 | PN ---
DATE: 11/17/2016 SUBJECTIVE: No acute changes. The patient is awake, short of breath, looks comfortable. Complaini ng of lower abdominal pain. No fevers. LABORATORY DATA: WBC 13.5, H and H 9 and 28.3, platelets 323. No shift, no bands. BUN 14, creatin ine 0.59. Urinalysis on admission was positive for leukocyte esterase and white blood cell count, r are yeast. MICROBIOLOGY: Blood cultures have been negative. Urine culture showed contaminated specimen. DIAGNOSTICS: CT of the chest revealed consolidation in the upper lobes consistent with pneumonia, r ight worse than left. ANTIMICROBIALS: 1. Cefepime. 2. Vancomycin. PHYSICAL EXAMINATION: GENERAL: This is a fragile, elderly woman who is awake, in no distress. HEENT: Head atraumatic, normocephalic. Sclerae anicteric. Buccal mucosa pink, dry. NECK: Supple. CHEST: Rise symmetrical. Breath sounds with bilateral scattered crackles and rhonchi. HEART: S1, S2. ABDOMEN: Distended with tenderness over her suprapubic area. EXTREMITIES: Without cyanosis. ASSESSMENT: 1. A patient with fever and leukocytosis on admission. 2. Health-care associated pneumonia, possibly aspiration. 3. Urinary tract infection. 4. Urinary retention. 5. 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 PLAN: We are going to keep patient on current antimicrobials. We will place a Santos as patient is retaining urine and repeat urine culture for contaminated specimen. Continue present care. Follow chest x-ray in a.m. Dictated By: YASMANY BECERRA DESIGN PROJECT MANAGER for [employer]OM[employer]/VU Conf#: [id number] DID#: [id number]
--- NOTE | 2016-11-17 17:37 | RADRPT ---
PROCEDURE: XR Finger. CLINICAL INDICATION: Trauma. Left thumb pain. TECHNIQUE: Three views. Frontal, lateral, and oblique. COMPARISON: None available FINDINGS: There is no fracture or dislocation. The soft tissues are normal. There are degenerative changes of the first carpal metacarpal joint with joint space narrowing, oste ophytes, and subarticular sclerosis with mild deformity. There are degenerative changes of the firs t interphalangeal joint with joint space narrowing and osteophytes. There is no lytic or blastic lesion. There is no radiopaque foreign body. IMPRESSION: 1. Degenerative changes as described above. 2. No acute abnormality. RPTAT: QQ .Elvis Henderson MD, MD Date Time Electronically viewed and signed by .Elvis Henderson MD, on 11/17/2016 17:37 .R/
[2016-11-17] MEDS: VANCOMYCIN 1 GM in NS 250 ML IVPB SCH (18:13)
[2016-11-17] MEDS ORDERED: LORAZEPAM 2 MG INJ IV ONE (21:00)
[2016-11-17] MEDS: MIRTAZAPINE 15 MG TAB PO SCH (21:03)
[2016-11-17] MEDS: SERTRALINE 100 MG TAB PO SCH (21:03)
[2016-11-17] MEDS: SENNA/DOCUSATE NA (8.6MG/50MG) TAB PO SCH (21:03)
[2016-11-18] VITALS (12 sets, daily range): BP systolic 118–134; BP diastolic 58–75; PULSE 92–102; RESP 19–20
[2016-11-18] MEDS: CEFEPIME 2GM/50 ML (PMX) 50 ML IVPB SCH (02:33)
[2016-11-18] MEDS: PANTOPRAZOLE 40 MG INJ IV SCH (06:41)
[2016-11-18] MEDS: MAGNESIUM HYDROXIDE 30ML CUP PO SCH ×2 (09:00→20:47)
[2016-11-18] MEDS: LACTOBACILLUS RHAMNOSUS CAP PO SCH ×2 (09:29→20:46)
[2016-11-18] MEDS: DORZOLAMIDE/TIMOLOL 10 ML OPH LEFT EYE SCH ×2 (09:29→20:46)
[2016-11-18] MEDS: LEVOTHYROXINE 75 MCG TAB PO SCH (09:29)
[2016-11-18] MEDS: SALMETEROL/FLUTICASONE 250/50 INHA INH SCH ×2 (09:29→20:45)
[2016-11-18] MEDS: LATANOPROST 0.005% 2.5 ML OPH LEFT EYE SCH (09:29)
[2016-11-18] MEDS: ENOXAPARIN 60 MG/0.6 ML SYG SC SCH ×2 (09:31→20:57)
[2016-11-18 09:38] LABS: ADD SCAN DIFF NO
[2016-11-18 09:44] LABS: BASOPHILS % 0.2 % (0.0-2.0); EOSINOPHILS # 0.1 10^3/ul (0.0-0.5); EOSINOPHILS % 0.7 % (0.0-7.0); HEMATOCRIT 30.8 % (37.0-47.0); HEMOGLOBIN 9.4 g/dl (12.0-16.0); LYMPHOCYTES # 2.1 10^3/ul (0.8-2.9); MEAN CORPUSCULAR HEMOGLOBIN 26.5 pg (29.0-33.0); MEAN CORPUSCULAR HGB CONC 30.5 g/dl (32.0-37.0); MEAN CORPUSCULAR VOLUME 86.8 fl (82.0-101.0); MEAN PLATELET VOLUME 9.6 fl (7.4-10.4); MONOCYTE # 1.1 10^3/ul (0.3-0.9); MONOCYTES % 8.9 % (0.0-11.0); NEUTROPHIL # 9.3 10^3/ul (1.6-7.5); NEUTROPHILS % 72.3 % (39.0-77.0); PLATELET COUNT 355 10^3/UL (140-415); RED BLOOD COUNT 3.55 10^6/ul (4.20-5.40); RED CELL DISTRIBUTION WIDTH 14.6 % (11.5-14.5); WHITE BLOOD COUNT 12.9 10^3/ul (4.8-10.8)
[2016-11-18 09:59] LABS: CALCIUM 8.2 mg/dl (8.4-10.2); CREATININE 0.57 mg/dl (0.44-1.00); POTASSIUM 3.7 mmol/L (3.5-5.1)
--- NOTE | 2016-11-18 14:39 | PN ---
Date/Time of Note Date/Time of Note DATE: 11/18/16 TIME: 14:37 Assessment/Plan VTE Prophylaxis VTE Prophylaxis Intervention: LMWH Lines/Catheters IV Catheter Type (from Nrs): Saline Lock Urinary Cath still in place: No Assessment/Plan Chief Complaint/Hosp Course S: 86y F w dyspnea from snf. Cough; no fever? Spoke w Tamara: lost appetite/ early satiety. No n/v/d/fever. ~some phelgm. No cp/leg pain at present. Some recent leg pain/ fww use at snf. Saw psych once. EGD- gastritis 2months ago. 11/17- intermittent abd pain- low/deep in lwr abp. no bm*4d. off Metamucil. no dysuria. Daughter updated. 11/18 no sleep overnight. +2 BMs. Urinary retention noted but refused bladder scan catheter. O: Vss PE No pallor Reg Dimin bs bilat. No tachypnea Bs dimin, nt, nd, no r/r/g. Scars noted Ext mild hypotonia; no Ernestina's. Lt thumb- disloc/ fracture A/P: 1. Pneuomonia; bilat upper/ strept? HAP. Stable finish atb's; ST eval- aspiration risk. DC to snf sunday. 2. Recent surgery- SP Appy/ Extensive loculated RLQ interloop abscess/ sbo w rlq transition point. Ct now ok. 3. Ftt; snf soon; needs home health/ PT/antibiotics. 4. Bilat Pl Effusion- transudate? will finish hap & dvt Rx . 5. Ho VRE UTI? 6. Chr COPD 7. Chr CHF? echo p 8. Chr htn/DL 9. Chr IBS; Dr Johnson 10. depression 11. Chr glaucoma 12. Past tobacco 13. Chr anemia 14. Ac Lwr ext DVT; stable on lovenox. may cont pt/ot 15. Abd pain; lwr; obstipation?? laxatives vs enema. ambulate/ fiber 16. Lt thumb fracture/dislocation; ortho eval; nwb; pain control. 17. Urinary retention. Treat constipation. Ambulate/bowel training. Problems: Exam/Review of Systems Vital Signs Vitals Vital Signs Date Time Temp Pulse Resp B/P Pulse Ox O2 Delivery O2 Flow Rate FiO2 11/18/16 12:04 96 11/18/16 11:48 97.8 20 134/61 97 11/18/16 08:30 Simple Mask 5.0 Intake and Output 11/17/16 11/17/16 11/18/16 15:00 23:00 07:00 Intake Total 1395 ml Output Total 350 ml Balance 1045 ml Results Result Diagram: 11/18/16 0845 11/18/16 0845 Results 24 hrs Laboratory Tests Test 11/18/16 08:45 White Blood Count 12.9 H Red Blood Count 3.55 L Hemoglobin 9.4 L Hematocrit 30.8 L Mean Corpuscular Volume 86.8 Mean Corpuscular Hemoglobin 26.5 L Mean Corpuscular Hemoglobin Concent 30.5 L Red Cell Distribution Width 14.6 H Platelet Count 355 Mean Platelet Volume 9.6 Neutrophils % 72.3 Lymphocytes % 16.0 Monocytes % 8.9 Eosinophils % 0.7 Basophils % 0.2 Nucleated Red Blood Cells % 0.0 Neutrophils # 9.3 H Lymphocytes # 2.1 Monocytes # 1.1 H Eosinophils # 0.1 Basophils # 0.0 Nucleated Red Blood Cells # 0.0 Sodium Level 135 Potassium Level 3.7 Chloride Level 102 Carbon Dioxide Level 28 Anion Gap 9 Blood Urea Nitrogen 12 Creatinine 0.57 Glucose Level 89 Calcium Level 8.2 L Medications Medications Current Medications Ondansetron HCl (Zofran Inj) 4 mg Q6H PRN IV NAUSEA AND/OR VOMITING; Start 07/22 at 17:00 Acetaminophen (Tylenol Tab) 650 mg Q6H PRN PO PAIN LEVEL 1-3 OR FEVER; Start at 17:00 Acetaminophen/ Hydrocodone Bitart ([place] (5/325)) 1 tab Q6H PRN PO MODERATE PAIN LEVEL 4-6; Start 11/15/16 at 17:00 Morphine Sulfate (morphine) 2 mg Q4H PRN IV SEVERE PAIN LEVEL 7-10; Start 11/15 at 17:00 Docusate Sodium (Colace) 100 mg Q12H PRN PO CONSTIPATION; Start 11/15/16 at 17: 00 Sodium Biphosphate/ Sodium Phosphate (Fleet Enema) 133 ml DAILY PRN [place] CONSTIPATION; Start 11/15/16 at 17:00 Vancomycin HCl (Vanco Iv Per Pharmacy) VANCOMYCIN PER PHARMACY NOTE XX ; Start 11/15/16 at 17:00 Hydralazine HCl (Apresoline) 10 mg Q6H PRN IV ELEVATED BLOOD PRESSURE; Start at 17:00 Clonidine (Catapres) 0.1 mg Q6H PRN PO ELEVATED BLOOD PRESSURE; Start 11/15/16 at 17:00 Nitroglycerin (Nitroglycerin (Sl Tab) 0.4 Mg) 1 tab Q5M PRN SL ANGINA; Start at 17:00 Dorzolamide/ Timolol (Cosopt) 1 drop BID LEFT EYE Last administered on 09:29; Admin Dose 1 DROP; Start 11/15/16 at 21:00 Latanoprost (Xalatan) 1 drop DAILY LEFT EYE Last administered on 11/18/16 09: 29; Admin Dose 1 DROP; Start 11/16/16 at 09:00 Levothyroxine Sodium (Synthroid) 75 mcg DAILY PO Last administered on 09:29; Admin Dose 75 MCG; Start 11/16/16 at 09:00 Lorazepam (Ativan) 0.5 mg HS PRN PO ANXIETY; Start 11/15/16 at 17:00 Salmeterol Xinafoate/ Fluticasone (Advair 250/50 Diskus) 1 inh BID INH Last administered on 11/18/16 09:29; Admin Dose 1 INH; Start 11/15/16 at 21:00 Sertraline HCl 100 mg 100 mg QHS PO Last administered on 11/17/16 21:03; Admin Dose 100 MG; Start 11/15/16 at 21:00 Vancomycin HCl 250 ml @ 125 mls/hr Q24H IVPB Last administered on 11/17/16 18 :13; Admin Dose 125 MLS/HR; Start 11/15/16 at 17:30 Cefepime HCl (Maxipime 2gm/50 ml (Pmx)) 50 ml @ 100 mls/hr Q24H IVPB Last administered on 11/18/16 02:33; Admin Dose 100 MLS/HR; Start 11/17/16 at 01:00 Senna/Docusate Sodium (Senokot-S) 2 tab HS PO Last administered on 11/17/16 21 :03; Admin Dose 2 TAB; Start 11/16/16 at 21:00 Pantoprazole (Protonix Iv) 40 mg DAILY@06 IV Last administered on 11/18/16 06: 41; Admin Dose 40 MG; Start 11/17/16 at 06:00 Lactobacillus Acidophilus/ Rhamnosus (Culturelle) 1 cap BID PO Last administered on 11/18/16 09:29; Admin Dose 1 CAP; Start 11/17/16 at 09:00 Mirtazapine (Remeron) 7.5 mg HS PO Last administered on 11/17/16 21:03; Admin Dose 7.5 MG; Start 11/16/16 at 21:00 Enoxaparin Sodium (Lovenox) 60 mg Q12 SC Last administered on 11/18/16 09:31; Admin Dose 60 MG; Start 11/16/16 at 16:10 Magnesium Hydroxide (Milk Of Mag) 30 ml BID PO Last administered on 11/17/16 21:03; Admin Dose 30 ML; Start 11/17/16 at 14:30 Bisacodyl (Dulcolax Supp) 10 mg DAILY PRN [place] CONSTIPATION; Start 11/17/16 at 14 :30 Mineral Oil (Fleet Mineral Oil Enema) 133 ml DAILY PRN NE CONSTIPATION; Start 11/17/16 at 14:30 Acetaminophen/ Hydrocodone Bitart ([place] (10/325)) 1 tab Q4H PRN PO PAIN; Start 11/17/16 at 14:30 Miscellaneous Information (*Rx Drug Level Order Reminder*) VANCO TR LEVEL PRIOR... ONCE ONCE XX ; Start 11/18/16 at 16:30; Stop 11/18/16 at 16:31 GALDINO HOPKINS MD Nov 18, 2016 14:39
[2016-11-18] MEDS: VANCOMYCIN 1 GM in NS 250 ML IVPB SCH (18:44)
--- NOTE | 2016-11-18 20:09 | CONS ---
Date/Time of Note Date/Time of Note DATE: 11/18/16 TIME: 20:07 Assessment/Plan Assessment/Plan Chief Complaint/Hosp Course SUBJECTIVE: No acute changes. The patient is awake, eating lunch, no fevers, no shortness of breath. No fevers. MICROBIOLOGY: Blood cultures have been negative. Urine culture showed contaminated specimen. DIAGNOSTICS: CT of the chest revealed consolidation in the upper lobes consistent with pneumonia, right worse than left. ANTIMICROBIALS: 1. Cefepime. 2. Vancomycin. PHYSICAL EXAMINATION: GENERAL: This is a fragile, elderly woman who is awake, in no distress. HEENT: Head atraumatic, normocephalic. Sclerae anicteric. Buccal mucosa pink , dry. NECK: Supple. CHEST: Rise symmetrical. Breath sounds with bilateral scattered crackles and rhonchi. HEART: S1, S2. ABDOMEN: Distended with tenderness over her suprapubic area. EXTREMITIES: Without cyanosis. ASSESSMENT: 1. Sepsis with fever and leukocytosis on admission. 2. Health-care associated pneumonia, possibly aspiration. 3. Urinary tract infection. 4. 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 PLAN: Clinically improving, continue abx, f/u repeat urine cx, monitor P[facility] DW staff Problems: Consultation Date/Type/Reason Admit Date/Time Nov 15, 2016 at 16:43 Initial Consult Date Type of Consultation: id Exam/Review of Systems Vital Signs Vitals Vital Signs Date Time Temp Pulse Resp B/P Pulse Ox O2 Delivery O2 Flow Rate FiO2 11/18/16 20:01 98.3 92 20 124/58 97 11/18/16 08:30 Simple Mask 5.0 Intake and Output 11/17/16 11/17/16 11/18/16 14:59 22:59 06:59 Intake Total 1395 ml Output Total 350 ml Balance 1045 ml Results Result Diagram: 11/18/16 0845 11/18/16 0845 Results 24 hrs Laboratory Tests Test 11/18/16 08:45 11/18/16 17:09 White Blood Count 12.9 H Red Blood Count 3.55 L Hemoglobin 9.4 L Hematocrit 30.8 L Mean Corpuscular Volume 86.8 Mean Corpuscular Hemoglobin 26.5 L Mean Corpuscular Hemoglobin Concent 30.5 L Red Cell Distribution Width 14.6 H Platelet Count 355 Mean Platelet Volume 9.6 Neutrophils % 72.3 Lymphocytes % 16.0 Monocytes % 8.9 Eosinophils % 0.7 Basophils % 0.2 Nucleated Red Blood Cells % 0.0 Neutrophils # 9.3 H Lymphocytes # 2.1 Monocytes # 1.1 H Eosinophils # 0.1 Basophils # 0.0 Nucleated Red Blood Cells # 0.0 Sodium Level 135 Potassium Level 3.7 Chloride Level 102 Carbon Dioxide Level 28 Anion Gap 9 Blood Urea Nitrogen 12 Creatinine 0.57 Glucose Level 89 Calcium Level 8.2 L Vancomycin Level Trough 8.7 L Medications Medications Current Medications Ondansetron HCl (Zofran Inj) 4 mg Q6H PRN IV NAUSEA AND/OR VOMITING; Start 07/22 at 17:00 Acetaminophen (Tylenol Tab) 650 mg Q6H PRN PO PAIN LEVEL 1-3 OR FEVER; Start at 17:00 Acetaminophen/ Hydrocodone Bitart ([place] (5/325)) 1 tab Q6H PRN PO MODERATE PAIN LEVEL 4-6; Start 11/15/16 at 17:00 Morphine Sulfate (morphine) 2 mg Q4H PRN IV SEVERE PAIN LEVEL 7-10; Start 11/15 at 17:00 Docusate Sodium (Colace) 100 mg Q12H PRN PO CONSTIPATION; Start 11/15/16 at 17: 00 Sodium Biphosphate/ Sodium Phosphate (Fleet Enema) 133 ml DAILY PRN [place] CONSTIPATION; Start 11/15/16 at 17:00 Vancomycin HCl (Vanco Iv Per Pharmacy) VANCOMYCIN PER PHARMACY NOTE XX ; Start 11/15/16 at 17:00 Hydralazine HCl (Apresoline) 10 mg Q6H PRN IV ELEVATED BLOOD PRESSURE; Start at 17:00 Clonidine (Catapres) 0.1 mg Q6H PRN PO ELEVATED BLOOD PRESSURE; Start 11/15/16 at 17:00 Nitroglycerin (Nitroglycerin (Sl Tab) 0.4 Mg) 1 tab Q5M PRN SL ANGINA; Start at 17:00 Dorzolamide/ Timolol (Cosopt) 1 drop BID LEFT EYE Last administered on 09:29; Admin Dose 1 DROP; Start 11/15/16 at 21:00 Latanoprost (Xalatan) 1 drop DAILY LEFT EYE Last administered on 11/18/16 09: 29; Admin Dose 1 DROP; Start 11/16/16 at 09:00 Levothyroxine Sodium (Synthroid) 75 mcg DAILY PO Last administered on 09:29; Admin Dose 75 MCG; Start 11/16/16 at 09:00 Salmeterol Xinafoate/ Fluticasone (Advair 250/50 Diskus) 1 inh BID INH Last administered on 11/18/16 09:29; Admin Dose 1 INH; Start 11/15/16 at 21:00 Sertraline HCl 100 mg 100 mg QHS PO Last administered on 11/17/16 21:03; Admin Dose 100 MG; Start 11/15/16 at 21:00 Vancomycin HCl 250 ml @ 125 mls/hr Q24H IVPB Last administered on 11/18/16 18 :44; Admin Dose 125 MLS/HR; Start 11/15/16 at 17:30; Stop 11/18/16 at 21:00 Cefepime HCl (Maxipime 2gm/50 ml (Pmx)) 50 ml @ 100 mls/hr Q24H IVPB Last administered on 11/18/16 02:33; Admin Dose 100 MLS/HR; Start 11/17/16 at 01:00 Senna/Docusate Sodium (Senokot-S) 2 tab HS PO Last administered on 11/17/16 21 :03; Admin Dose 2 TAB; Start 11/16/16 at 21:00 Pantoprazole (Protonix Iv) 40 mg DAILY@06 IV Last administered on 11/18/16 06: 41; Admin Dose 40 MG; Start 11/17/16 at 06:00 Lactobacillus Acidophilus/ Rhamnosus (Culturelle) 1 cap BID PO Last administered on 11/18/16 09:29; Admin Dose 1 CAP; Start 11/17/16 at 09:00 Mirtazapine (Remeron) 7.5 mg HS PO Last administered on 11/17/16 21:03; Admin Dose 7.5 MG; Start 11/16/16 at 21:00 Enoxaparin Sodium (Lovenox) 60 mg Q12 SC Last administered on 11/18/16 09:31; Admin Dose 60 MG; Start 11/16/16 at 16:10 Magnesium Hydroxide (Milk Of Mag) 30 ml BID PO Last administered on 11/17/16t 21:03; Admin Dose 30 ML; Start 11/17/16 at 14:30 Bisacodyl (Dulcolax Supp) 10 mg DAILY PRN [place] CONSTIPATION; Start 11/17/16 at 14 :30 Mineral Oil (Fleet Mineral Oil Enema) 133 ml DAILY PRN [place] CONSTIPATION; Start 11/17/16 at 14:30 Acetaminophen/ Hydrocodone Bitart ([place] (10/325)) 1 tab Q4H PRN PO PAIN; Start 11/17/16 at 14:30 Zolpidem Tartrate 5 mg 5 mg HS PRN PO INSOMNIA; Start 11/18/16 at 15:00 Vancomycin HCl (Vancocin) 250 ml @ 125 mls/hr Q18H IVPB ; Start 11/19/16 at 13: 00 YASMANY BECERRA NP Nov 18, 2016 20:08
[2016-11-18] MEDS: MIRTAZAPINE 15 MG TAB PO SCH (20:46)
[2016-11-18] MEDS: SENNA/DOCUSATE NA (8.6MG/50MG) TAB PO SCH (20:46)
[2016-11-18] MEDS: SERTRALINE 100 MG TAB PO SCH (20:46)
[2016-11-18] MEDS: ZOLPIDEM 5 MG TAB PO PRN (20:57)
[2016-11-19] VITALS (12 sets, daily range): BP systolic 124–168; BP diastolic 60–70; PULSE 84–94; RESP 16–19
[2016-11-19] MEDS: CEFEPIME 2GM/50 ML (PMX) 50 ML IVPB SCH (00:22)
[2016-11-19] MEDS: PANTOPRAZOLE 40 MG INJ IV SCH (06:11)
[2016-11-19 08:12] LABS: MAGNESIUM 2.2 mg/dl (1.7-2.5); PHOSPHORUS 3.2 mg/dl (2.5-4.9)
[2016-11-19 08:23] LABS: ADD SCAN DIFF NO
[2016-11-19 08:37] LABS: BASOPHILS % 0.2 % (0.0-2.0); EOSINOPHILS # 0.2 10^3/ul (0.0-0.5); EOSINOPHILS % 1.7 % (0.0-7.0); HEMATOCRIT 30.5 % (37.0-47.0); HEMOGLOBIN 9.3 g/dl (12.0-16.0); LYMPHOCYTES # 2.5 10^3/ul (0.8-2.9); LYMPHOCYTES % 19.8 % (15.0-51.0); MEAN CORPUSCULAR HGB CONC 30.5 g/dl (32.0-37.0); MEAN CORPUSCULAR VOLUME 88.7 fl (82.0-101.0); MEAN PLATELET VOLUME 9.5 fl (7.4-10.4); MONOCYTE # 1.1 10^3/ul (0.3-0.9); MONOCYTES % 8.9 % (0.0-11.0); NEUTROPHIL # 8.5 10^3/ul (1.6-7.5); PLATELET COUNT 358 10^3/UL (140-415); RED BLOOD COUNT 3.44 10^6/ul (4.20-5.40); WHITE BLOOD COUNT 12.7 10^3/ul (4.8-10.8)
[2016-11-19 08:59] LABS: POTASSIUM 4.1 mmol/L (3.5-5.1)
[2016-11-19] MEDS: MAGNESIUM HYDROXIDE 30ML CUP PO SCH ×3 (09:00→21:00)
[2016-11-19 09:02] LABS: CREATININE 0.6 mg/dl (0.44-1.00)
[2016-11-19 09:03] LABS: CALCIUM 8.6 mg/dl (8.4-10.2)
[2016-11-19] MEDS: LACTOBACILLUS RHAMNOSUS CAP PO SCH ×2 (09:50→21:04)
[2016-11-19] MEDS: LATANOPROST 0.005% 2.5 ML OPH LEFT EYE SCH (09:50)
[2016-11-19] MEDS: SALMETEROL/FLUTICASONE 250/50 INHA INH SCH ×2 (09:50→21:05)
[2016-11-19] MEDS: LEVOTHYROXINE 75 MCG TAB PO SCH (09:50)
[2016-11-19] MEDS: DORZOLAMIDE/TIMOLOL 10 ML OPH LEFT EYE SCH ×2 (09:50→21:05)
[2016-11-19] MEDS: ENOXAPARIN 60 MG/0.6 ML SYG SC SCH ×2 (09:51→21:16)
--- NOTE | 2016-11-19 11:52 | RADRPT ---
PROCEDURE: XR Chest. CLINICAL INDICATION: Cough TECHNIQUE: Anterior chest x-ray. COMPARISON: 10/11/2016 FINDINGS: There are new interstitial infiltrates in the left lung apex and throughout the right lung. There are small bilateral pleural effusions, new compared to previous exam. There is a new bibasilar compressive atelectasis. There is no evidence of pneumothorax. The cardiomediastinal silhouette is unremarkable. The soft tissues are normal. Osseous structures are unremarkable. IMPRESSION: 1. New interstitial infiltrates in the left lung apex and throughout the right lung. 2. New small bilateral pleural effusions with associated bibasilar compressive atelectasis. RPTAT: II .Miki Rogers MD, MD Date Time Electronically viewed and signed by .Miki Rogers MD, on 11/19/2016 11:51 .M/
[2016-11-19] MEDS: VANCOMYCIN 1 GM in NS 250 ML IVPB SCH (12:13)
--- NOTE | 2016-11-19 15:08 | PN ---
Date/Time of Note Date/Time of Note DATE: 11/19/16 TIME: 15:04 Assessment/Plan VTE Prophylaxis VTE Prophylaxis Intervention: LMWH (eliquis) Lines/Catheters IV Catheter Type (from Nrsg): Saline Lock Urinary Cath still in place: No Assessment/Plan Chief Complaint/Hosp Course S: 86y F w dyspnea from snf. Cough; no fever? Spoke w Tamara: lost appetite/ early satiety. No n/v/d/fever. ~some phelgm. No cp/leg pain at present. Some recent leg pain/ fww use at snf. Saw psych once. EGD- gastritis 2months ago. 11/17- intermittent abd pain- low/deep in lwr abp. no bm*4d. off Metamucil. no dysuria. Daughter updated. 11/18 no sleep overnight. +2 BMs. Urinary retention noted but refused bladder scan catheter. 11/19- better, but poor appetite/ anxiety. had urinary retention. small amt bm's. O: Vss PE No pallor Reg Dimin bs bilat. No tachypnea Bs dimin, nt, nd, no r/r/g. Scars noted Ext mild hypotonia; no Ernestina's. Lt thumb- disloc/ fracture A/P: 1. Pneumonia; bilat upper/ strept- HAP. Stable finish atb's; ST eval- aspiration risk. DC to snf sunday. 2. Recent surgery- SP Appy/ Extensive loculated RLQ interloop abscess/ sbo w rlq transition point. Ct now ok. 3. Ftt; snf soon; needs ST/OT/PT/antibiotics/ jang care-bladder training. 4. Bilat Pl Effusion- transudate? will finish hap & dvt Rx . 5. Ho VRE UTI? 6. Chr COPD 7. Chr CHF? echo pending 8. Chr htn/DL 9. Chr IBS; Dr Johnson 10. depression 11. Chr glaucoma 12. Past tobacco 13. Chr anemia 14. Ac Lwr ext DVT; stable on lovenox- to transition to Eliquis. 2D ordered/ but treatment will not change. may cont pt/ot 15. Abd pain; lwr; obstipation?? laxatives vs enema. ambulate/ fiber 16. Lt thumb fracture/dislocation; ortho called; eval pending; nwb; pain control. 17. Urinary retention. Treat constipation. Ambulate/bladder- bowel training. Problems: Exam/Review of Systems Vital Signs Vitals Vital Signs Date Time Temp Pulse Resp B/P Pulse Ox O2 Delivery O2 Flow Rate FiO2 11/19/16 12:09 92 11/19/16 11:51 97.8 19 126/62 98 11/19/16 08:20 Nasal Cannula 4.0 Intake and Output 11/18/16 11/18/16 11/19/16 15:00 23:00 07:00 Intake Total 300 ml Output Total 200 ml Balance 300 ml -200 ml Results Result Diagram: 11/19/16 0640 11/19/16 0640 Results 24 hrs Laboratory Tests Test 11/18/16 17:09 11/19/16 06:40 Vancomycin Level Trough 8.7 L White Blood Count 12.7 H Red Blood Count 3.44 L Hemoglobin 9.3 L Hematocrit 30.5 L Mean Corpuscular Volume 88.7 Mean Corpuscular Hemoglobin 27.0 L Mean Corpuscular Hemoglobin Concent 30.5 L Red Cell Distribution Width 15.0 H Platelet Count 358 Mean Platelet Volume 9.5 Neutrophils % 67.0 Lymphocytes % 19.8 Monocytes % 8.9 Eosinophils % 1.7 Basophils % 0.2 Nucleated Red Blood Cells % 0.0 Neutrophils # 8.5 H Lymphocytes # 2.5 Monocytes # 1.1 H Eosinophils # 0.2 Basophils # 0.0 Nucleated Red Blood Cells # 0.0 Sodium Level 138 Potassium Level 4.1 Chloride Level 102 Carbon Dioxide Level 26 Anion Gap 14 Blood Urea Nitrogen 13 Creatinine 0.60 Glucose Level 90 Calcium Level 8.6 Phosphorus Level 3.2 Magnesium Level 2.2 Medications Medications Current Medications Ondansetron HCl (Zofran Inj) 4 mg Q6H PRN IV NAUSEA AND/OR VOMITING; Start 07/22 at 17:00 Acetaminophen (Tylenol Tab) 650 mg Q6H PRN PO PAIN LEVEL 1-3 OR FEVER; Start at 17:00 Acetaminophen/ Hydrocodone Bitart ([place] (5/325)) 1 tab Q6H PRN PO MODERATE PAIN LEVEL 4-6; Start 11/15/16 at 17:00 Morphine Sulfate (morphine) 2 mg Q4H PRN IV SEVERE PAIN LEVEL 7-10; Start 11/15 at 17:00 Docusate Sodium (Colace) 100 mg Q12H PRN PO CONSTIPATION; Start 11/15/16 at 17: 00 Sodium Biphosphate/ Sodium Phosphate (Fleet Enema) 133 ml DAILY PRN [place] CONSTIPATION; Start 11/15/16 at 17:00 Vancomycin HCl (Vanco Iv Per Pharmacy) VANCOMYCIN PER PHARMACY NOTE XX ; Start 11/15/16 at 17:00 Hydralazine HCl (Apresoline) 10 mg Q6H PRN IV ELEVATED BLOOD PRESSURE; Start at 17:00 Clonidine (Catapres) 0.1 mg Q6H PRN PO ELEVATED BLOOD PRESSURE; Start 11/15/16 at 17:00 Nitroglycerin (Nitroglycerin (Sl Tab) 0.4 Mg) 1 tab Q5M PRN SL ANGINA; Start at 17:00 Dorzolamide/ Timolol (Cosopt) 1 drop BID LEFT EYE Last administered on 09:50; Admin Dose 1 DROP; Start 11/15/16 at 21:00 Latanoprost (Xalatan) 1 drop DAILY LEFT EYE Last administered on 11/19/16 09: 50; Admin Dose 1 DROP; Start 11/16/16 at 09:00 Levothyroxine Sodium (Synthroid) 75 mcg DAILY PO Last administered on 09:50; Admin Dose 75 MCG; Start 11/16/16 at 09:00 Salmeterol Xinafoate/ Fluticasone (Advair 250/50 Diskus) 1 inh BID INH Last administered on 11/19/16 09:50; Admin Dose 1 INH; Start 11/15/16 at 21:00 Sertraline HCl 100 mg 100 mg QHS PO Last administered on 11/18/16 20:46; Admin Dose 100 MG; Start 11/15/16 at 21:00 Cefepime HCl (Maxipime 2gm/50 ml (Pmx)) 50 ml @ 100 mls/hr Q24H IVPB Last administered on 11/19/16 00:22; Admin Dose 100 MLS/HR; Start 11/17/16 at 01:00 Senna/Docusate Sodium (Senokot-S) 2 tab HS PO Last administered on 11/17/16 21 :03; Admin Dose 2 TAB; Start 11/16/16 at 21:00 Pantoprazole (Protonix Iv) 40 mg DAILY@06 IV Last administered on 11/19/16 06: 11; Admin Dose 40 MG; Start 11/17/16 at 06:00 Lactobacillus Acidophilus/ Rhamnosus (Culturelle) 1 cap BID PO Last administered on 11/19/16 09:50; Admin Dose 1 CAP; Start 11/17/16 at 09:00 Enoxaparin Sodium (Lovenox) 60 mg Q12 SC Last administered on 11/19/16 09:51; Admin Dose 60 MG; Start 11/16/16 at 16:10; Stop 11/19/16 at 23:00 Magnesium Hydroxide (Milk Of Mag) 30 ml BID PO Last administered on 11/19/16 10:32; Admin Dose 30 ML; Start 11/17/16 at 14:30 Bisacodyl (Dulcolax Supp) 10 mg DAILY PRN [place] CONSTIPATION; Start 11/17/16 at 14 :30 Mineral Oil (Fleet Mineral Oil Enema) 133 ml DAILY PRN [place] CONSTIPATION; Start 11/17/16 at 14:30 Acetaminophen/ Hydrocodone Bitart ([place] (10/325)) 1 tab Q4H PRN PO PAIN; Start 11/17/16 at 14:30 Zolpidem Tartrate 5 mg 5 mg HS PRN PO INSOMNIA Last administered on 11/18/16 20:57; Admin Dose 5 MG; Start 11/18/16 at 15:00 Vancomycin HCl (Vancocin) 250 ml @ 125 mls/hr Q18H IVPB Last administered on 12:13; Admin Dose 125 MLS/HR; Start 11/19/16 at 13:00 Mirtazapine (Remeron) 7.5 mg BID PO ; Start 11/19/16 at 21:00 Apixaban (Eliquis) 10 mg BID PO ; Start 11/20/16 at 09:00 GALDINO HOPKINS MD Nov 19, 2016 15:08
--- NOTE | 2016-11-19 19:32 | DS ---
DATE OF ADMISSION: 11/15/2016 DATE OF DISCHARGE: 11/20/2016 PRIMARY CARE PHYSICIAN: Unknown. HR MANAGER: Dr. Kelley DIAGNOSES ON ADMISSION: 1. Acute hypoxic respiratory failure. 2. Bilateral healthcare-associated pneumonia. 3. DVT. 4. Deconditioning. 5. Urinary retention. 6. Constipation, obstruction. 7. Failure to thrive. HOSPITAL COURSE: This is an 86-year-old female admitted from retirement with shortness of breath, fever, leukocytosis, abnormal x-ray consistent with healthcare-associated pneumonia. She seems to be improving with supportive care. Appreciate ID assistance. She will finish antibiotics at SNF. Due to deconditioning, will still need to go to the SNF, will need bladder training and bowel or madeline dder care regimen. Daughter aware of the plan of care as well. Bilateral pleural effusion may be followed up as an outpatient. Possible history of thoracentesis. Presently with healthcare-associated pneumonia and no evidence of sepsis. Incidentally, found to have a lower extremity DVT. She is tolerating anticoagulation. Pending CTA of her chest to rule out PE. However, management will not change. There is no tachypnea and the pa tient is tolerating anticoagulation. Two-D echo pending. Her surgical care seems to be stable. She had surgery back in August for extensive loculated right lower quadrant abscess with small-bowel obstruction, with right lower quadrant transition poi nt. The present CAT scan looks okay. She is tolerating diet, but appetite has been an issue. For her issue with appetite, it is probably multifactorial in nature, she is not burning a lot of calori es. Ambulation and issues with anxiety, agitation and depression will be appreciated. I have start ed her on Remeron. She will continue, I believe, Celexa. Incidentally, the patient has a left thumb dislocation fracture. Nonweightbearing. May follow up w ith orthopedist down the line. IMAGING STUDIES: Chest x-ray still has infiltrates obviously. Thumb x-ray does not show any fractu re on imaging. CT chest without contrast was read as consolidation in bilateral upper lobes, right greater than left, with atelectasis, small pericardial effusion, moderate right effusion, small left effusion, mild DJD. Ultrasound of the lower extremity shows thrombosis, left common femoral, femor al and popliteal veins. LABORATORY DATA: Cultures: Blood, urine and MRSA negative. White cell count down to 12, H and H o f 9 and 30, platelets of 350. BMP unremarkable. TSH of 1.8. Cholesterol 97, LDL of 53, HDL 21, tr iglycerides 116. A1c 5.5. LFTs okay. MEDICATIONS: 1. Cefepime 2 grams daily for 4 more days. 2. Vancomycin 1 gram every 18 hours for 4 more days. 3. Tylenol as needed. 4. Albuterol DuoNeb every 4 as needed. 5. Eliquis 10 mg twice daily. 6. Dulcolax as needed. 7. Clonidine as needed. 8. Colace as needed. 9. Cosopt 1 drop left eye b.i.d. 10. Culturelle 1 capsule twice daily. 11. Xalatan eye drops, left eye daily. 12. Synthroid 75 mcg daily. 13. Milk of magnesium 30 mg p.o. b.i.d., for maybe 2 more days. 14. Fleet enema as needed. 15. Remeron 7.5 mg twice daily. 16. Protonix 40 mg daily. 17. Senna-S 2 tablets nightly. 18. Zoloft 100 daily. DIET: Low salt and cholesterol. ACTIVITY: Weightbearing as tolerated. CODE STATUS: Full. CONDITION: Stable. BARRIERS TO DISCHARGE: None. PENDING TESTS: CTA chest, [id number]. FUNCTIONAL STATUS: Patient is awake, alert. She and her daughter are aware of the care plan and op tions. REASON FOR ADMISSION: Shortness of breath, fever. ALLERGIES: NO KNOWN DRUG ALLERGIES. Dictated By: GALDINO CHINCHILLA/VU Conf#: [id number] DID#: [id number] CC: LUIS DANIEL MICHEL;*EndCC*
--- NOTE | 2016-11-19 19:58 | CONS ---
Date/Time of Note Date/Time of Note DATE: 11/19/16 TIME: 19:57 Assessment/Plan Assessment/Plan Chief Complaint/Hosp Course SUBJECTIVE: Alert, looks comfortable, no fevers, no shortness of breath. MICROBIOLOGY: Blood cultures have been negative. Urine culture showed contaminated specimen. DIAGNOSTICS: CT of the chest revealed consolidation in the upper lobes consistent with pneumonia, right worse than left. ANTIMICROBIALS: 1. Cefepime. 2. Vancomycin. PHYSICAL EXAMINATION: GENERAL: This is a fragile, elderly woman who is awake, in no distress. HEENT: Head atraumatic, normocephalic. Sclerae anicteric. Buccal mucosa pink , dry. NECK: Supple. CHEST: Rise symmetrical. Breath sounds with bilateral scattered crackles and rhonchi. HEART: S1, S2. ABDOMEN: Distended with tenderness over her suprapubic area. EXTREMITIES: Without cyanosis. ASSESSMENT: 1. Sepsis with fever and leukocytosis on admission. 2. Health-care associated pneumonia, possibly aspiration. 3. Urinary tract infection. 4. 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 5. Urinary retention PLAN: Stable, continue abx, f/u repeat urine cx and cxr, monitor PVR DW staff Problems: Consultation Date/Type/Reason Admit Date/Time Nov 15, 2016 at 16:43 Type of Consultation: ID Exam/Review of Systems Vital Signs Vitals Vital Signs Date Time Temp Pulse Resp B/P Pulse Ox O2 Delivery O2 Flow Rate FiO2 11/19/16 19:41 97.9 91 18 131/66 93 11/19/16 17:39 4.0 11/19/16 08:20 Nasal Cannula Intake and Output 11/18/16 11/18/16 11/19/16 15:00 23:00 07:00 Intake Total 300 ml Output Total 200 ml Balance 300 ml -200 ml Results Result Diagram: 11/19/16 0640 11/19/16 0640 Results 24 hrs Laboratory Tests Test 11/19/16 06:40 White Blood Count 12.7 H Red Blood Count 3.44 L Hemoglobin 9.3 L Hematocrit 30.5 L Mean Corpuscular Volume 88.7 Mean Corpuscular Hemoglobin 27.0 L Mean Corpuscular Hemoglobin Concent 30.5 L Red Cell Distribution Width 15.0 H Platelet Count 358 Mean Platelet Volume 9.5 Neutrophils % 67.0 Lymphocytes % 19.8 Monocytes % 8.9 Eosinophils % 1.7 Basophils % 0.2 Nucleated Red Blood Cells % 0.0 Neutrophils # 8.5 H Lymphocytes # 2.5 Monocytes # 1.1 H Eosinophils # 0.2 Basophils # 0.0 Nucleated Red Blood Cells # 0.0 Sodium Level 138 Potassium Level 4.1 Chloride Level 102 Carbon Dioxide Level 26 Anion Gap 14 Blood Urea Nitrogen 13 Creatinine 0.60 Glucose Level 90 Calcium Level 8.6 Phosphorus Level 3.2 Magnesium Level 2.2 Medications Medications Current Medications Ondansetron HCl (Zofran Inj) 4 mg Q6H PRN IV NAUSEA AND/OR VOMITING; Start 07/22 at 17:00 Acetaminophen (Tylenol Tab) 650 mg Q6H PRN PO PAIN LEVEL 1-3 OR FEVER; Start at 17:00 Acetaminophen/ Hydrocodone Bitart ([place] (5/325)) 1 tab Q6H PRN PO MODERATE PAIN LEVEL 4-6; Start 11/15/16 at 17:00 Morphine Sulfate (morphine) 2 mg Q4H PRN IV SEVERE PAIN LEVEL 7-10; Start 11/15 at 17:00 Docusate Sodium (Colace) 100 mg Q12H PRN PO CONSTIPATION; Start 11/15/16 at 17: 00 Sodium Biphosphate/ Sodium Phosphate (Fleet Enema) 133 ml DAILY PRN [place] CONSTIPATION; Start 11/15/16 at 17:00 Vancomycin HCl (Vanco Iv Per Pharmacy) VANCOMYCIN PER PHARMACY NOTE XX ; Start 11/15/16 at 17:00 Hydralazine HCl (Apresoline) 10 mg Q6H PRN IV ELEVATED BLOOD PRESSURE; Start at 17:00 Clonidine (Catapres) 0.1 mg Q6H PRN PO ELEVATED BLOOD PRESSURE; Start 11/15/16 at 17:00 Nitroglycerin (Nitroglycerin (Sl Tab) 0.4 Mg) 1 tab Q5M PRN SL ANGINA; Start at 17:00 Dorzolamide/ Timolol (Cosopt) 1 drop BID LEFT EYE Last administered on 09:50; Admin Dose 1 DROP; Start 11/15/16 at 21:00 Latanoprost (Xalatan) 1 drop DAILY LEFT EYE Last administered on 11/19/16 09: 50; Admin Dose 1 DROP; Start 11/16/16 at 09:00 Levothyroxine Sodium (Synthroid) 75 mcg DAILY PO Last administered on 09:50; Admin Dose 75 MCG; Start 11/16/16 at 09:00 Salmeterol Xinafoate/ Fluticasone (Advair 250/50 Diskus) 1 inh BID INH Last administered on 11/19/16 09:50; Admin Dose 1 INH; Start 11/15/16 at 21:00 Sertraline HCl 100 mg 100 mg QHS PO Last administered on 11/18/16 20:46; Admin Dose 100 MG; Start 11/15/16 at 21:00 Cefepime HCl (Maxipime 2gm/50 ml (Pmx)) 50 ml @ 100 mls/hr Q24H IVPB Last administered on 11/19/16 00:22; Admin Dose 100 MLS/HR; Start 11/17/16 at 01:00 Senna/Docusate Sodium (Senokot-S) 2 tab HS PO Last administered on 11/17/16 21 :03; Admin Dose 2 TAB; Start 11/16/16 at 21:00 Lactobacillus Acidophilus/ Rhamnosus (Culturelle) 1 cap BID PO Last administered on 11/19/16 09:50; Admin Dose 1 CAP; Start 11/17/16 at 09:00 Enoxaparin Sodium (Lovenox) 60 mg Q12 SC Last administered on 11/19/16 09:51; Admin Dose 60 MG; Start 11/16/16 at 16:10; Stop 11/19/16 at 23:00 Magnesium Hydroxide (Milk Of Mag) 30 ml BID PO Last administered on 11/19/16 10:32; Admin Dose 30 ML; Start 11/17/16 at 14:30 Bisacodyl (Dulcolax Supp) 10 mg DAILY PRN [place] CONSTIPATION; Start 11/17/16 at 14 :30 Mineral Oil (Fleet Mineral Oil Enema) 133 ml DAILY PRN [place] CONSTIPATION; Start 11/17/16 at 14:30 Acetaminophen/ Hydrocodone Bitart ([place] (10/325)) 1 tab Q4H PRN PO PAIN; Start 11/17/16 at 14:30 Zolpidem Tartrate 5 mg 5 mg HS PRN PO INSOMNIA Last administered on 11/18/16 20:57; Admin Dose 5 MG; Start 11/18/16 at 15:00 Vancomycin HCl (Vancocin) 250 ml @ 125 mls/hr Q18H IVPB Last administered on 12:13; Admin Dose 125 MLS/HR; Start 11/19/16 at 13:00 Mirtazapine (Remeron) 7.5 mg BID PO ; Start 11/19/16 at 21:00 Apixaban (Eliquis) 10 mg BID PO ; Start 11/20/16 at 09:00 Pantoprazole (Protonix Tab) 40 mg DAILY@06 PO ; Start 11/20/16 at 06:00 AYSMANY BECERRA NP Nov 19, 2016 19:58
[2016-11-19] MEDS: SENNA/DOCUSATE NA (8.6MG/50MG) TAB PO SCH (21:00)
[2016-11-19] MEDS ORDERED: BETAMET NA PHOS/AC(6 MG/ML) 5ML INJ INJ ONE (21:00)
[2016-11-19] MEDS ORDERED: BUPIVACAINE 0.5%/EPI (SDV) 30 ML INJ INJ SCH (21:00)
[2016-11-19] MEDS ORDERED: BUPIVACAINE 0.5%/EPI (SDV) 30 ML INJ INJ ONE (21:00)
[2016-11-19] MEDS: MIRTAZAPINE 15 MG TAB PO SCH (21:04)
[2016-11-19] MEDS: SERTRALINE 100 MG TAB PO SCH (21:09)
[2016-11-19] MEDS: ZOLPIDEM 5 MG TAB PO PRN (21:19)
--- NOTE | 2016-11-19 21:20 | CONS ---
DATE OF ADMISSION: 11/15/2016 DATE OF CONSULTATION: 11/19/2016 TYPE OF CONSULTATION: Orthopedic surgical. HISTORY OF PRESENT ILLNESS: The patient is an 86-year-old female who was admitted on 11/15/2016 whe n she was sent in from senior living facility because of the shortness of breath along with fever and leukocytosis. She was found to have a healthcare-associated pneumonia and has been treated prop erly with clinical improvement. Orthopedic Surgery was consulted because of the problem involving h er left thumb. According to the patient, she developed this triggering of the left thumb about 3 to 4 days ago without any memorable trauma or unusual activities. The triggering is occurring on and off without any obvious pain. My examination revealed mild tenderness over the volar aspect of the MP joint of the left thumb. Th ere was mild tenderness also over the carpometacarpal joint. X-rays of the left thumb revealed pres ence of degenerative osteoarthritis involving the carpometacarpal joint of the left thumb. DIAGNOSTIC IMPRESSION: 1. Stenosing tenosynovitis of the flexor tendon to the left thumb causing triggering. 2. Degenerative osteoarthritis of the carpometacarpal joint of the left thumb documented by x-rays. TREATMENT PLAN: Trial of steroid injection into the flexor issac of the flexor tendon to the left thumb at the metacarpophalangeal joint when the injectable is available. Dictated By: ROOSEVELT HARVEY/VU Conf#: [id number] DID#: [id number]
[2016-11-20 00:19] VITALS: PULSE 88
[2016-11-20] MEDS: CEFEPIME 2GM/50 ML (PMX) 50 ML IVPB SCH (00:39)
[2016-11-20 04:24] VITALS: PULSE 83
[2016-11-20 04:54] VITALS: BP 147/78; RESP 18
[2016-11-20] MEDS: PANTOPRAZOLE (EC) 40 MG TAB PO SCH (05:56)
[2016-11-20 07:48] LABS: ADD SCAN DIFF NO
[2016-11-20 07:51] LABS: BASOPHILS % 0.2 % (0.0-2.0); EOSINOPHILS # 0.2 10^3/ul (0.0-0.5); EOSINOPHILS % 1.6 % (0.0-7.0); HEMATOCRIT 31.4 % (37.0-47.0); HEMOGLOBIN 9.6 g/dl (12.0-16.0); LYMPHOCYTES # 2.7 10^3/ul (0.8-2.9); LYMPHOCYTES % 21.6 % (15.0-51.0); MEAN CORPUSCULAR HEMOGLOBIN 26.7 pg (29.0-33.0); MEAN CORPUSCULAR HGB CONC 30.6 g/dl (32.0-37.0); MEAN CORPUSCULAR VOLUME 87.5 fl (82.0-101.0); MEAN PLATELET VOLUME 9.5 fl (7.4-10.4); MONOCYTES % 7.7 % (0.0-11.0); NEUTROPHIL # 8.4 10^3/ul (1.6-7.5); NEUTROPHILS % 66.4 % (39.0-77.0); PLATELET COUNT 401 10^3/UL (140-415); RED BLOOD COUNT 3.59 10^6/ul (4.20-5.40); RED CELL DISTRIBUTION WIDTH 14.8 % (11.5-14.5); WHITE BLOOD COUNT 12.7 10^3/ul (4.8-10.8)
[2016-11-20 08:01] LABS: MAGNESIUM 2.1 mg/dl (1.7-2.5); PHOSPHORUS 3.4 mg/dl (2.5-4.9)
[2016-11-20 08:12] VITALS: BP 156/67; RESP 16
[2016-11-20] MEDS: VANCOMYCIN 1 GM in NS 250 ML IVPB SCH (08:16)
[2016-11-20 08:28] LABS: CALCIUM 8.8 mg/dl (8.4-10.2); CREATININE 0.57 mg/dl (0.44-1.00); POTASSIUM 4.3 mmol/L (3.5-5.1)
[2016-11-20] MEDS: SALMETEROL/FLUTICASONE 250/50 INHA INH SCH ×2 (09:00→20:19)
[2016-11-20] MEDS: LATANOPROST 0.005% 2.5 ML OPH LEFT EYE SCH (09:00)
[2016-11-20] MEDS ORDERED: APIXABAN 5 MG TABLET PO SCH (09:00)
[2016-11-20] MEDS: LEVOTHYROXINE 75 MCG TAB PO SCH (09:00)
[2016-11-20] MEDS: LACTOBACILLUS RHAMNOSUS CAP PO SCH ×2 (09:00→20:20)
[2016-11-20] MEDS: MAGNESIUM HYDROXIDE 30ML CUP PO SCH ×2 (09:00→20:20)
[2016-11-20] MEDS: MIRTAZAPINE 15 MG TAB PO SCH ×2 (09:00→20:21)
[2016-11-20] MEDS: APIXABAN 5 MG TABLET PO SCH ×2 (09:00→20:20)
[2016-11-20] MEDS: DORZOLAMIDE/TIMOLOL 10 ML OPH LEFT EYE SCH ×2 (11:04→20:19)
--- NOTE | 2016-11-20 12:23 | RADRPT ---
Echocardiogram Report Patient Name: CHARLOTTE CASILLAS Gender: Female Date: 1930 Study Date: 20-Nov-2016 Store Keeper: Amelia Agarwal [facility] Location: 2245 Ref. Physician: GALDINO HOPKINS Quality: Adequate Procedures: Transthoracic echocardiogram with complete 2D, M-Mode, and doppler examination. Indications: hypoxia, DVT. 2D/M Mode Doppler Measurement Value Normal Ranges Measurement Value Normal Ranges LVIDd 2D 3.4 3.5 - 5.6 cm AV Peak Parker 1.4 m/sec LVIDs 2D 1.5 2.1 - 4.1 cm AV Peak PG 7.0 mmHg FS 2D 55.0 % LVOT Peak Parker 1.2 m/sec LVPWd 2D 0.8 0.6 - 1.1 cm LVOT Peak PG 5.0 mmHg IVSd 2D 0.7 0.6 - 1.1 cm MV E Peak Parker 1.1 m/sec IVS/LVPW 2D 0.9 MV A Peak Parker 1.7 m/sec AoR Diam 2D 2.9 2.0 - 3.7 cm MV E/A 0.7 LA/Ao 2D 1 0 - 1 MV Decel Time 183 msec EDV 2D 38.6 cm3 MV E/A 0.7 ESV 2D 3.5 cm3 LA Dimen 2D 2.4 2.3 - 4.0 cm Findings Left Ventricle: Normal left ventricular systolic function. Normal left ventricular cavity size. Normal left ventricular wall thickness. Ejection fraction is visually estimated at 6065 %. Tissue Doppler/Mitral Doppler indices are consistent with impaired relaxation (Stage I diastolic dysfunction). Right Ventricle: Normal right ventricular size. Normal right ventricular systolic function. Left Atrium: The left atrium is normal in size. Right Atrium: The right atrium is normal in size. Mitral Valve: Mild mitral leaflet calcification. Moderate mitral annular calcification. Trace mitral regurgitation. Aortic Valve: No significant aortic stenosis or insufficiency. Aortic cusps appear mildly calcified. Tricuspid Valve: Normal appearance of the tricuspid valve. Unable to obtain RVSP due to minimal presence of tricuspid regurgitation. Pulmonic Valve: Pulmonic valve not well visualized. Pericardium: Normal pericardium with no significant pericardial effusion. Aorta: Normal aortic root. IVC: Normal size and normal respiratory collapse consistent with normal right atrial pressure. Conclusions 1.Normal left ventricular systolic function. Normal left ventricular cavity size. Normal left ventricular wall thickness. Ejection fraction is visually estimated at 60-65 %. Tissue Doppler/Mitral Doppler indices are consistent with impaired relaxation (Stage I diastolic dysfunction). 2.Mild mitral leaflet calcification. Moderate mitral annular calcification. Trace mitral regurgitation. 3.Normal appearance of the tricuspid valve. Unable to obtain RVSP due to minimal presence of tricuspid regurgitation. Electronically Signed By: Roldan Roper 20-Nov-2016 12:22:47 -0700 Patient Name: CHARLOTTE CASILLAS Study Date: 20-Nov-2016 [id number]
--- NOTE | 2016-11-20 15:45 | CONS ---
Date/Time of Note Date/Time of Note DATE: 11/20/16 TIME: 15:44 Assessment/Plan Assessment/Plan Chief Complaint/Hosp Course SUBJECTIVE: Alert, feels good, looks comfortable, no fevers, no shortness of breath. MICROBIOLOGY: Blood cultures have been negative. Urine culture showed contaminated specimen. DIAGNOSTICS: CT of the chest revealed consolidation in the upper lobes consistent with pneumonia, right worse than left. ANTIMICROBIALS: 1. Cefepime. 2. Vancomycin. PHYSICAL EXAMINATION: GENERAL: This is a fragile, elderly woman who is awake, in no distress. HEENT: Head atraumatic, normocephalic. Sclerae anicteric. Buccal mucosa pink , dry. NECK: Supple. CHEST: Rise symmetrical. Breath sounds with bilateral scattered crackles and rhonchi. HEART: S1, S2. ABDOMEN: Distended with tenderness over her suprapubic area. EXTREMITIES: Without cyanosis. ASSESSMENT: 1. Sepsis with fever and leukocytosis on admission. 2. Health-care associated pneumonia, possibly aspiration. 3. Urinary tract infection. 4. 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 5. Urinary retention PLAN: Clinically improved, continue present care, complete abx, monitor PVR, pulmonary rec-s DW staff Problems: Consultation Date/Type/Reason Admit Date/Time Nov 15, 2016 at 16:43 Type of Consultation: ID Exam/Review of Systems Vital Signs Vitals Vital Signs Date Time Temp Pulse Resp B/P Pulse Ox O2 Delivery O2 Flow Rate FiO2 11/20/16 08:12 97.5 87 16 156/67 90 11/20/16 02:59 3.0 11/19/16 21:00 Nasal Cannula Intake and Output 11/19/16 11/19/16 11/20/16 15:00 23:00 07:00 Intake Total 200 ml 950 ml 450 ml Output Total 300 ml 300 ml Balance -100 ml 950 ml 150 ml Results Result Diagram: 11/20/1612 11/20/1612 Results 24 hrs Laboratory Tests Test 11/20/16 06:12 White Blood Count 12.7 H Red Blood Count 3.59 L Hemoglobin 9.6 L Hematocrit 31.4 L Mean Corpuscular Volume 87.5 Mean Corpuscular Hemoglobin 26.7 L Mean Corpuscular Hemoglobin Concent 30.6 L Red Cell Distribution Width 14.8 H Platelet Count 401 Mean Platelet Volume 9.5 Neutrophils % 66.4 Lymphocytes % 21.6 Monocytes % 7.7 Eosinophils % 1.6 Basophils % 0.2 Nucleated Red Blood Cells % 0.0 Neutrophils # 8.4 H Lymphocytes # 2.7 Monocytes # 1.0 H Eosinophils # 0.2 Basophils # 0.0 Nucleated Red Blood Cells # 0.0 Sodium Level 135 Potassium Level 4.3 Chloride Level 104 Carbon Dioxide Level 28 Anion Gap 7 L Blood Urea Nitrogen 12 Creatinine 0.57 Glucose Level 90 Calcium Level 8.8 Phosphorus Level 3.4 Magnesium Level 2.1 Medications Medications Current Medications Ondansetron HCl (Zofran Inj) 4 mg Q6H PRN IV NAUSEA AND/OR VOMITING; Start 07/22 at 17:00 Acetaminophen (Tylenol Tab) 650 mg Q6H PRN PO PAIN LEVEL 1-3 OR FEVER; Start at 17:00 Acetaminophen/ Hydrocodone Bitart ([place] (5/325)) 1 tab Q6H PRN PO MODERATE PAIN LEVEL 4-6; Start 11/15/16 at 17:00 Morphine Sulfate (morphine) 2 mg Q4H PRN IV SEVERE PAIN LEVEL 7-10; Start 11/15 at 17:00 Docusate Sodium (Colace) 100 mg Q12H PRN PO CONSTIPATION; Start 11/15/16 at 17: 00 Sodium Biphosphate/ Sodium Phosphate (Fleet Enema) 133 ml DAILY PRN SD CONSTIPATION; Start 11/15/16 at 17:00 Vancomycin HCl (Vanco Iv Per Pharmacy) VANCOMYCIN PER PHARMACY NOTE XX ; Start 11/15/16 at 17:00 Hydralazine HCl (Apresoline) 10 mg Q6H PRN IV ELEVATED BLOOD PRESSURE; Start at 17:00 Clonidine (Catapres) 0.1 mg Q6H PRN PO ELEVATED BLOOD PRESSURE; Start 11/15/16 at 17:00 Nitroglycerin (Nitroglycerin (Sl Tab) 0.4 Mg) 1 tab Q5M PRN SL ANGINA; Start at 17:00 Dorzolamide/ Timolol (Cosopt) 1 drop BID LEFT EYE Last administered on t 21:05; Admin Dose 1 DROP; Start 11/15/16 at 21:00 Latanoprost (Xalatan) 1 drop DAILY LEFT EYE Last administered on 11/19/16 09: 50; Admin Dose 1 DROP; Start 11/16/16 at 09:00 Levothyroxine Sodium (Synthroid) 75 mcg DAILY PO Last administered on 09:00; Admin Dose 75 MCG; Start 11/16/16 at 09:00 Salmeterol Xinafoate/ Fluticasone (Advair 250/50 Diskus) 1 inh BID INH Last administered on 11/19/16 21:05; Admin Dose 1 INH; Start 11/15/16 at 21:00 Sertraline HCl 100 mg 100 mg QHS PO Last administered on 11/19/16 21:09; Admin Dose 100 MG; Start 11/15/16 at 21:00 Cefepime HCl (Maxipime 2gm/50 ml (Pmx)) 50 ml @ 100 mls/hr Q24H IVPB Last administered on 11/20/16 00:39; Admin Dose 100 MLS/HR; Start 11/17/16 at 01:00 Senna/Docusate Sodium (Senokot-S) 2 tab HS PO Last administered on 11/17/16 21 :03; Admin Dose 2 TAB; Start 11/16/16 at 21:00 Lactobacillus Acidophilus/ Rhamnosus (Culturelle) 1 cap BID PO Last administered on 11/20/16 09:00; Admin Dose 1 CAP; Start 11/17/16 at 09:00 Magnesium Hydroxide (Milk Of Mag) 30 ml BID PO Last administered on 11/20/16 09:00; Admin Dose 30 ML; Start 11/17/16 at 14:30 Bisacodyl (Dulcolax Supp) 10 mg DAILY PRN SD CONSTIPATION; Start 11/17/16 at 14 :30 Mineral Oil (Fleet Mineral Oil Enema) 133 ml DAILY PRN SD CONSTIPATION; Start 11/17/16 at 14:30 Acetaminophen/ Hydrocodone Bitart ([place] (10/325)) 1 tab Q4H PRN PO PAIN; Start 11/17/16 at 14:30 Zolpidem Tartrate 5 mg 5 mg HS PRN PO INSOMNIA Last administered on 11/19/16 21:19; Admin Dose 5 MG; Start 11/18/16 at 15:00 Vancomycin HCl (Vancocin) 250 ml @ 125 mls/hr Q18H IVPB Last administered on 08:16; Admin Dose 125 MLS/HR; Start 11/19/16 at 13:00 Mirtazapine (Remeron) 7.5 mg BID PO Last administered on 11/20/16 09:00; Admin Dose 7.5 MG; Start 11/19/16 at 21:00 Apixaban (Eliquis) 10 mg BID PO Last administered on 11/20/16 09:00; Admin Dose 10 MG; Start 11/20/16 at 09:00 Pantoprazole (Protonix Tab) 40 mg DAILY@06 PO Last administered on 11/20/16 05 :56; Admin Dose 40 MG; Start 11/20/16 at 06:00 Bupivacaine HCl/ Epinephrine Bitart (Marcaine 0.5%/ Epi (Sdv)) 30 ml ONCE INJ ; Start 11/19/16 at 21:00; Stop 11/20/16 at 20:59 Miscellaneous Information (*Rx Drug Level Order Reminder*) VANCOMYCIN TROUGH AT 0000 ONCE ONCE XX ; Start 11/21/16 at 00:00; Stop 11/21/16 at 00:01 YASMANY BECERRA NP Nov 20, 2016 15:45
[2016-11-20] MEDS: FUROSEMIDE 20 MG INJ IV SCH (17:45)
--- NOTE | 2016-11-20 19:20 | CONS ---
DATE OF ADMISSION: 11/15/2016 DATE OF CONSULTATION: REASON FOR CONSULTATION: Shortness of breath. Thank you, Dr. Hopkins, for this consultation. HISTORY OF PRESENT ILLNESS: This is an 86-year-old lady [facility] f or increasing shortness of breath, orthopnea, PND, hypoxemia. On admission, was found to have leuko cytosis with low grade fever. Chest x-ray demonstrating mild congestive cardiac failure. She was t reated with antibiotics, diuretics, and has since had a chest x-ray, which confirms interstitial inf iltrates, small bilateral effusions. Consolidation of the right upper lobe had clinically improved. The patient is a poor historian and confused at times, unable to give me further history. PAST MEDICAL HISTORY: COPD, hypertension, hyperlipidemia, history of CHF, irritable bowel syndrome, possible early dementia. MEDICATIONS: Per chart. ALLERGIES: NONE. SOCIAL HISTORY: She is a nonsmoker, no alcohol, no history of drug use. FAMILY HISTORY: Noncontributory. SYSTEMS REVIEW: A 14-point review of systems was negative other than that mentioned above. PHYSICAL EXAMINATION: GENERAL: Well-nourished, well-developed lady, comfortable at rest, talking in full and complete sen tences. VITAL SIGNS: Currently afebrile. Pulse is 87, blood pressure 150/67, O2 saturation 96% on 3 L nasa l cannula. NECK: Supple. No JVD or lymphadenopathy. CARDIAC: S1, S2. No added sounds or murmurs. CHEST: Diminished air entry bilaterally. ABDOMEN: Soft, nontender. No guarding or rebound. EXTREMITIES: No cyanosis, clubbing, 1+ edema. NEUROLOGIC: Generalized weakness. LABORATORY DATA: White count 12.7, hemoglobin 9.6, platelets of 401. BUN 12, creatinine 0.57. INR 1.16. IMPRESSION AND PLAN: 1. Likely healthcare-associated pneumonia. 2. Mild pulmonary edema with echocardiogram that shows preserved ejection fraction, but stage I luis stolic dysfunction. 3. Possible early dementia. The patient will require: 1. Continue antibiotics, currently on vancomycin and cefepime. 2. Gentle diuresis. 3. Anticoagulation. 4. Deep vein thrombosis and gastrointestinal prophylaxis. 5. Anticipate discharge once more stable. Dictated By: DUDLEY NEVAREZ/VU Conf#: [id number] DID#: [id number] CC: GALDINO HOPKINS MD; LUIS DANIEL MICHEL;*[facility]*
[2016-11-20] MEDS: SERTRALINE 100 MG TAB PO SCH (20:21)
[2016-11-20] MEDS: SENNA/DOCUSATE NA (8.6MG/50MG) TAB PO SCH (20:21)
[2016-11-20 21:43] VITALS: BP 147/80; RESP 18
[2016-11-20] MEDS: ZOLPIDEM 5 MG TAB PO PRN (21:59)
[2016-11-21] MEDS: CEFEPIME 2GM/50 ML (PMX) 50 ML IVPB SCH (01:33)
[2016-11-21] MEDS: VANCOMYCIN 1 GM in NS 250 ML IVPB SCH ×2 (02:21→19:30)
[2016-11-21] MEDS: PANTOPRAZOLE (EC) 40 MG TAB PO SCH (06:23)
[2016-11-21] MEDS: FUROSEMIDE 20 MG INJ IV SCH ×2 (06:25→18:08)
--- NOTE | 2016-11-21 08:07 | PN ---
DATE: 11/20/2016 TIME: 1400 SUBJECTIVE DATA: The patient refused CTa earlier this morning, because the patient was not given appropriate information about this diagnostic test. The patient believed that she was going for a coronary angiogram. At the same time , the patient's daughter has been calling the floor director of cardiac cath lab informing about the concerns about the patient going for an "angiogram". OBJECTIVE DATA: VITAL SIGNS: Temperature 97.5, pulse rate 87, respiratory rate 16, blood pressure 156/66, oxygen saturation 90% on low flow O2. GENERAL: This is a female lying in bed in no apparent distress. HEENT: Head normocephalic and atraumatic. Eyes: Anicteric sclerae. Conjunctivae clear. Nasal septum is midline. Oral mucosa is dry. NECK: Supple. No JVD noticed. RESPIRATORY: Bilaterally diminished breath sounds. Fine rales heard at the bases. No use of accessory muscles of respiration. CARDIAC: Regular rate and rhythm. S1 and S2 heard. ABDOMEN: Soft, nontender and nondistended. Bowel sounds positive in all 4 quadrants. GENITOURINARY: Deferred. EXTREMITIES: No cyanosis, no clubbing, no edema. Peripheral pulses palpable. NEUROLOGIC: The patient is awake, alert and oriented. Cranial nerves are grossly intact. LABORATORY AND DIAGNOSTIC DATA: WBC 12.7, hemoglobin 9.6, hematocrit 31.4, platelet count 401. Sodium 135, potassium 4.3, chloride 104, carbon dioxide 28 , anion gap 7, BUN 12, creatinine 0.5, glucose 90, calcium 8.8, phosphorus 3.4, magnesium 2.1. ASSESSMENT AND PLAN: 1. Healthcare-associated pneumonia. Continue antibiotics. Aspiration precautions. 2. Bilateral pleural effusions. Status post thoracentesis on 10/04/2016. 3. Acute deep vein thrombosis of the left common femoral vein and popliteal vein. Continue anticoagulation. 4. Acute respiratory failure. Hypoxic. Most probably secondary to underlying healthcare-associated pneumonia. Continue inhaled bronchodilators and supplemental oxygen. 5. History of loculated abscesses in the right lower quadrant. Status post exploratory laparotomy and abdominal washout with a small bowel resection x2 on 09/20/2016. 6. Chronic obstructive pulmonary disease. Continue inhaled bronchodilators. 7. Irritable bowel syndrome. Continue to monitor. 8. Depression. Continue antidepressants. 9. Anemia, most probably anemia of chronic disease. Continue to monitor hemoglobin and hematocrit closely. 10. 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 Status post evaluation by orthopedic surgery. Plan for local injection. 11. Fluid, electrolytes and nutrition. Low cholesterol diet. 12. Deep venous thrombosis prophylaxis. Factor Xa inhibitors. 13. Gastrointestinal prophylaxis with proton pump inhibitors. PLAN: Continue antibiotics. Will call pulmonary consult, as per the patient's family request. Hold on to CT angiogram of the chest until pulmonary sees the patient. The case was discussed with Dr. Hines. I attempted to call the patient's daughter, Tamara Ortega at [phone]. However, the patient's daughter wants to talk to an MD instead of an [employer]. YISSEL HINES MD, AM/VU Conf#: [id number] DID#: [id number] MTDD
[2016-11-21 08:14] VITALS: BP 128/72; RESP 19
[2016-11-21] MEDS: DORZOLAMIDE/TIMOLOL 10 ML OPH LEFT EYE SCH ×2 (08:41→21:04)
[2016-11-21] MEDS: SALMETEROL/FLUTICASONE 250/50 INHA INH SCH ×2 (08:41→21:04)
[2016-11-21] MEDS: MAGNESIUM HYDROXIDE 30ML CUP PO SCH ×2 (08:42→21:00)
[2016-11-21] MEDS: LACTOBACILLUS RHAMNOSUS CAP PO SCH ×2 (08:42→20:58)
[2016-11-21] MEDS: LEVOTHYROXINE 75 MCG TAB PO SCH (08:42)
[2016-11-21] MEDS: MIRTAZAPINE 15 MG TAB PO SCH ×2 (08:42→20:59)
[2016-11-21] MEDS: APIXABAN 5 MG TABLET PO SCH ×2 (08:44→20:59)
[2016-11-21 09:20] LABS: ADD SCAN DIFF NO
[2016-11-21 09:28] LABS: BASOPHILS % 0.3 % (0.0-2.0); EOSINOPHILS # 0.2 10^3/ul (0.0-0.5); EOSINOPHILS % 1.8 % (0.0-7.0); HEMATOCRIT 34.4 % (37.0-47.0); HEMOGLOBIN 10.8 g/dl (12.0-16.0); LYMPHOCYTES # 2.5 10^3/ul (0.8-2.9); LYMPHOCYTES % 18.5 % (15.0-51.0); MEAN CORPUSCULAR HEMOGLOBIN 27.2 pg (29.0-33.0); MEAN CORPUSCULAR HGB CONC 31.4 g/dl (32.0-37.0); MEAN CORPUSCULAR VOLUME 86.6 fl (82.0-101.0); MEAN PLATELET VOLUME 9.2 fl (7.4-10.4); MONOCYTE # 0.8 10^3/ul (0.3-0.9); MONOCYTES % 5.9 % (0.0-11.0); NEUTROPHIL # 9.8 10^3/ul (1.6-7.5); NEUTROPHILS % 71.5 % (39.0-77.0); PLATELET COUNT 487 10^3/UL (140-415); RED BLOOD COUNT 3.97 10^6/ul (4.20-5.40); RED CELL DISTRIBUTION WIDTH 14.7 % (11.5-14.5); WHITE BLOOD COUNT 13.7 10^3/ul (4.8-10.8)
[2016-11-21 09:47] LABS: CALCIUM 9.3 mg/dl (8.4-10.2); CREATININE 0.66 mg/dl (0.44-1.00); POTASSIUM 3.8 mmol/L (3.5-5.1)
[2016-11-21] MEDS: LATANOPROST 0.005% 2.5 ML OPH LEFT EYE SCH (11:02)
--- NOTE | 2016-11-21 11:06 | CONS ---
DATE OF ADMISSION: 11/15/2016 DATE OF CONSULTATION: 11/21/2016 TYPE OF CONSULTATION: Nephrology. REASON FOR CONSULTATION: Volume management, history of hyponatremia, electrolyte abnormality. HISTORY OF PRESENT ILLNESS: This is an 86-year-old female with a past medical history of COPD, hist ory of CHF, hypertension, irritable bowel syndrome, depression, hypothyroidism who presented to [facility] on 11/15/2016 with shortness of breath and hypoxemia. The patient apparent ly came from the [facility] the [facility]. At the time of arrival into the hospital, she was on 7 liters nasal cannula, hypoxemic. The patient had a chest x-ray which showed infiltrates and an elev ated white count of 20,000. The patient was subsequently placed on antibiotic therapy and was admit briana to telemetry for evaluation. The patient during the hospital course was seen by infectious dise ase, was also given diuretic therapy. The patient had clinical improvement; however, she continued to have episodes of shortness of breath. A CT scan of the chest was obtained, which showed consolid ation bilaterally upper lobes consistent with pneumonia, atelectasis, small pericardial effusion and right pleural effusion greater than left. The patient has had slow improvement, but has remained h ypoxemic. A CT angio was attempted but refused per patient's family. There were no reports of hemo ptysis, hemetemesis or hematochezia. In terms of the patient's renal history, the patient on admission was noted to be hypokalemic hypona tremic, which subsequently improved during the hospital course. The patient otherwise has had no ep isodes of rashes, no frothy urine. PAST MEDICAL HISTORY: As stated above, history of hypertension, CHF, COPD, irritable bowel syndrom e. ALLERGIES: NO KNOWN DRUG ALLERGIES. PAST SURGICAL HISTORY: She had laparoscopic appendectomy and also abdominal abscess drainage. SOCIAL HISTORY: Former smoker. FAMILY HISTORY: Noncontributory. MEDICATIONS: The patient's medications have been reviewed. REVIEW OF SYSTEMS: A 14-point review of systems was conducted. Pertinent positives stated in the H PI, otherwise negative. PHYSICAL EXAMINATION: VITAL SIGNS: Blood pressure 128/72, respirations 19, pulse 95, temperature 97.3. HEENT: Head is normocephalic. NECK: Supple. HEART: Regular rate. LUNGS: Show diminished breath sounds at the bases. ABDOMEN: Soft, nontender to palpation. No rebound or guarding. EXTREMITIES: Negative for clubbing, cyanosis. No edema. DERMATOLOGIC: No rashes. MUSCULOSKELETAL: No joint effusions. NEUROLOGIC: No focal deficits. LABORATORY DATA: Shows white count 12.7, hemoglobin 9.6, hematocrit 31.4, platelet count is 401. S odium 135, potassium 4.3, chloride 104, BUN 12, creatinine 0.57. IMAGING STUDIES: Chest x-ray shows interstitial infiltrates and pleural effusions. The patient als o had an extremity ultrasound, which shows acute DVT in the left common femoral vein, popliteal vein . ASSESSMENT AND PLAN: This is an 86-year-old female who presents with: 1. Hyponatremia, underlying etiology may have been secondary to transient SIADH due to underlying r espiratory pneumonia. The patient's sodium levels have subsequently normalized and have been stable . At this point, will continue to monitor. No need for free water restriction at this time. 2. Acute diastolic heart failure. The patient is currently on diuretic therapy. A 2D echo was rev iewed, showed evidence of stage I diastolic dysfunction with preserved ejection fraction. We will c ontinue to monitor I's and O's closely, on Lasix, and monitor renal function closely on diuretic the rapy. 4. Anemia, likely of chronic disease. Monitor hemoglobin and hematocrit levels. 5. Acute hypoxemic respiratory failure, etiology secondary to healthcare-associated pneumonia and c ongestive heart failure. Continue medical management. Continue diuretic regimen. Continue IV anti biotics. 6. Acute deep venous thrombosis. The patient is currently on anticoagulation. We will continue. 7. Pleural effusion, status post thoracentesis. We will follow up cultures. 8. Irritable bowel syndrome. Continue to monitor. 9. Depression. Continue antidepressants. 10. Tenosynovitis of the left thumb. The patient has been evaluated by orthopedic surgery, possibl e plan for localized injection. 11. Gastrointestinal prophylaxis, continue proton pump inhibitor. Thank you, Dr. Khanna, for this interesting consult. It will be a pleasure to follow the patient with you throughout the hospital course. Dictated By: VALENTINO PROCTOR/VU Conf#: [id number] DID#: [id number]
--- NOTE | 2016-11-21 11:20 | CONS ---
Date/Time of Note Date/Time of Note DATE: 11/21/16 TIME: 11:18 Assessment/Plan Assessment/Plan Additional Assessment/Plan Assessment recommendations; 1. Patient admitted for pneumonia next 2. History of COPD, hypertension and irritable bowel syndrome. Continue current supportive care. Continue current antibiotics. Obtain follow- up chest x-ray tomorrow. Consultation Date/Type/Reason Admit Date/Time Nov 15, 2016 at 16:43 Initial Consult Date Type of Consultation: Pulmonary 24 HR Interval Summary Free Text/Dictation Patient condition stable. Remains completely awake alert. Denies any shortness of breath, chest pain, wheezing, cough or sputum production. Any fever chills. Denies any abdominal pain nausea vomiting. Has good appetite. General exam; elderly lady, awake alert currently in no distress. Exam/Review of Systems Vital Signs Vitals Vital Signs Date Time Temp Pulse Resp B/P Pulse Ox O2 Delivery O2 Flow Rate FiO2 11/21/16 08:14 97.3 95 19 128/72 91 11/20/16 22:35 Nasal Cannula 3.0 Intake and Output 11/20/16 11/20/16 11/21/16 15:00 23:00 07:00 Intake Total 250 ml 760 ml 1170 ml Output Total 480 ml Balance 250 ml 760 ml 690 ml Exam HEENT examination; supple neck, no JVD. No lymphadenopathy. Midline trachea. No thyromegaly. Patient has a multiple carious teeth. Has bilateral intraocular lens implants. Pharynx is clear. No thyromegaly. Chest examination [place]: Minimally decreased breath sounds right lower lobe. Otherwise clear. S1-S2 audible, no murmurs. Regular rhythm. Abdomen examination; soft, nondistended, nontender. No organomegaly. Bowel sounds audible. Extremity examination; no peripheral edema. Pulses 1+ bilaterally. No clubbing. ROLL OFF DRIVER examination; no focal deficit. Results Result Diagram: 11/21/16 0857 11/21/16 0857 Results 24 hrs Laboratory Tests Test 11/21/16 00:00 11/21/16 08:57 Vancomycin Level Trough 15.2 White Blood Count 13.7 H Red Blood Count 3.97 L Hemoglobin 10.8 L Hematocrit 34.4 L Mean Corpuscular Volume 86.6 Mean Corpuscular Hemoglobin 27.2 L Mean Corpuscular Hemoglobin Concent 31.4 L Red Cell Distribution Width 14.7 H Platelet Count 487 #H Mean Platelet Volume 9.2 Neutrophils % 71.5 Lymphocytes % 18.5 Monocytes % 5.9 Eosinophils % 1.8 Basophils % 0.3 Nucleated Red Blood Cells % 0.0 Neutrophils # 9.8 H Lymphocytes # 2.5 Monocytes # 0.8 Eosinophils # 0.2 Basophils # 0.0 Nucleated Red Blood Cells # 0.0 Sodium Level 136 Potassium Level 3.8 Chloride Level 102 Carbon Dioxide Level 28 Anion Gap 10 Blood Urea Nitrogen 13 Creatinine 0.66 Glucose Level 157 Calcium Level 9.3 Medications Medications Current Medications Ondansetron HCl (Zofran Inj) 4 mg Q6H PRN IV NAUSEA AND/OR VOMITING; Start 07/22 at 17:00 Acetaminophen (Tylenol Tab) 650 mg Q6H PRN PO PAIN LEVEL 1-3 OR FEVER; Start at 17:00 Acetaminophen/ Hydrocodone Bitart ([place] (5/325)) 1 tab Q6H PRN PO MODERATE PAIN LEVEL 4-6; Start 11/15/16 at 17:00 Morphine Sulfate (morphine) 2 mg Q4H PRN IV SEVERE PAIN LEVEL 7-10; Start 11/15 at 17:00 Docusate Sodium (Colace) 100 mg Q12H PRN PO CONSTIPATION; Start 11/15/16 at 17: 00 Sodium Biphosphate/ Sodium Phosphate (Fleet Enema) 133 ml DAILY PRN [place] CONSTIPATION; Start 11/15/16 at 17:00 Vancomycin HCl (Vanco Iv Per Pharmacy) VANCOMYCIN PER PHARMACY NOTE XX ; Start 11/15/16 at 17:00 Hydralazine HCl (Apresoline) 10 mg Q6H PRN IV ELEVATED BLOOD PRESSURE; Start at 17:00 Clonidine (Catapres) 0.1 mg Q6H PRN PO ELEVATED BLOOD PRESSURE; Start 11/15/16 at 17:00 Nitroglycerin (Nitroglycerin (Sl Tab) 0.4 Mg) 1 tab Q5M PRN SL ANGINA; Start at 17:00 Dorzolamide/ Timolol (Cosopt) 1 drop BID LEFT EYE Last administered on 08:41; Admin Dose 1 DROP; Start 11/15/16 at 21:00 Latanoprost (Xalatan) 1 drop DAILY LEFT EYE Last administered on 11/21/16 11: 02; Admin Dose 1 DROP; Start 11/16/16 at 09:00 Levothyroxine Sodium (Synthroid) 75 mcg DAILY PO Last administered on 08:42; Admin Dose 75 MCG; Start 11/16/16 at 09:00 Salmeterol Xinafoate/ Fluticasone (Advair 250/50 Diskus) 1 inh BID INH Last administered on 11/21/16 08:41; Admin Dose 1 INH; Start 11/15/16 at 21:00 Sertraline HCl 100 mg 100 mg QHS PO Last administered on 11/20/16 20:21; Admin Dose 100 MG; Start 11/15/16 at 21:00 Cefepime HCl (Maxipime 2gm/50 ml (Pmx)) 50 ml @ 100 mls/hr Q24H IVPB Last administered on 11/21/16 01:33; Admin Dose 100 MLS/HR; Start 11/17/16 at 01:00 Senna/Docusate Sodium (Senokot-S) 2 tab HS PO Last administered on 11/17/16 21 :03; Admin Dose 2 TAB; Start 11/16/16 at 21:00 Lactobacillus Acidophilus/ Rhamnosus (Culturelle) 1 cap BID PO Last administered on 11/21/16 08:42; Admin Dose 1 CAP; Start 11/17/16 at 09:00 Magnesium Hydroxide (Milk Of Mag) 30 ml BID PO Last administered on 11/21/16 08:42; Admin Dose 30 ML; Start 11/17/16 at 14:30 Bisacodyl (Dulcolax Supp) 10 mg DAILY PRN [place] CONSTIPATION; Start 11/17/16 at 14 :30 Mineral Oil (Fleet Mineral Oil Enema) 133 ml DAILY PRN CO CONSTIPATION; Start 11/17/16 at 14:30 Acetaminophen/ Hydrocodone Bitart ([place] (10/325)) 1 tab Q4H PRN PO PAIN; Start 11/17/16 at 14:30 Zolpidem Tartrate 5 mg 5 mg HS PRN PO INSOMNIA Last administered on 11/20/16 21:59; Admin Dose 5 MG; Start 11/18/16 at 15:00 Vancomycin HCl (Vancocin) 250 ml @ 125 mls/hr Q18H IVPB Last administered on 02:21; Admin Dose 125 MLS/HR; Start 11/19/16 at 13:00 Mirtazapine (Remeron) 7.5 mg BID PO Last administered on 11/21/16 08:42; Admin Dose 7.5 MG; Start 11/19/16 at 21:00 Apixaban (Eliquis) 10 mg BID PO Last administered on 11/21/16 08:44; Admin Dose 10 MG; Start 11/20/16 at 09:00 Pantoprazole (Protonix Tab) 40 mg DAILY@06 PO Last administered on 11/21/16 06 :23; Admin Dose 40 MG; Start 11/20/16 at 06:00 Magnesium Citrate 150 ml 150 ml ONCE ONCE PO ; Start 11/21/16 at 12:00; Stop at 12:01 Fluconazole (Diflucan 200 Mg/ NS (Pmx)) 100 ml @ 100 mls/hr Q24H IVPB ; Start 11/21/16 at 11:00 NATALY PAGE Nov 21, 2016 11:20
--- NOTE | 2016-11-21 11:52 | PN ---
Date/Time of Note Date/Time of Note DATE: 11/21/16 TIME: 11:42 Assessment/Plan VTE Prophylaxis VTE Prophylaxis Intervention: other (Eliquis) Lines/Catheters [facility] Urinary Cath still in place: No Assessment/Plan Assessment/Plan 1. Bilateral Pneumonia with recurrent bilateral pleural effusions R>L * Status post thoracentesis on 10/04/2016. 2. Acute deep vein thrombosis of the left common femoral vein and popliteal vein. Continue anticoagulation. 3. Acute respiratory failure. Hypoxic. Most probably secondary to underlying healthcare-associated pneumonia. 4. Chronic obstructive pulmonary disease: s/p exacerbation 5. 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 Hx of abd abscesses Status post exploratory laparotomy and abdominal washout with a small bowel resection x2 on 09/20/2016. 7. Reported hx of Irritable bowel syndrome. Continue to monitor. 8. Chronic Depression. 9. Anemia, most probably anemia of chronic disease 10. Hypothyroidism: stable 11. Dyslipidemia with low HDL PLAN: * Continue current abx mgt * Reduce lasix to daily dosing starting tomorrow if ok with pulm * Notify Dr Escudero about pt's thumb * Laxative to help with constipation * Continue inhaled bronchodilators and wean off supplemental oxygen. * Continue all other home meds * Continue in-house PT PROPHYLAXIS: eliquis / Pepcid Subjective 24 Hr Interval Summary Free Text/Dictation Multiple complaints 1. Wants to know why she is urinating so much 2. Constipation 3. Asking for orthopedic surgeon for injection left thumb. Spoke with the patient herself in detail, also left detailed message for patient 's daughter. Patient is doing much better from a respiratory standpoint and remains only on 3 L of oxygen at this time. Exam/Review of Systems Vital Signs Vitals Vital Signs Date Time Temp Pulse Resp B/P Pulse Ox O2 Delivery O2 Flow Rate FiO2 11/21/16 08:14 97.3 95 19 128/72 91 11/20/16 22:35 Nasal Cannula 3.0 Intake and Output 11/20/16 11/20/16 11/21/16 14:59 22:59 06:59 Intake Total 250 ml 760 ml 1170 ml Output Total 480 ml Balance 250 ml 760 ml 690 ml Exam GENERAL: This is a frail female lying in bed in no apparent distress. HEENT: Head normocephalic and atraumatic. Eyes: Anicteric sclerae. Conjunctivae clear. Nasal septum is midline. Oral mucosa is dry. NECK: Supple. No JVD noticed. RESPIRATORY: Bilaterally diminished breath sounds. Mild fine rales heard at the bases. No use of accessory muscles of respiration. CARDIAC: Regular rate and rhythm. S1 and S2 heard. ABDOMEN: Soft, nontender and nondistended. Bowel sounds positive in all 4 quadrants. GENITOURINARY: Deferred. EXTREMITIES: No cyanosis, no clubbing, no edema. Peripheral pulses palpable. NEUROLOGIC: The patient is awake, alert and oriented. Cranial nerves are grossly intact. Results Result Diagram: 11/21/16 0857 11/21/16 0857 Results 24 hrs Laboratory Tests Test 11/21/16 00:00 11/21/16 08:57 Vancomycin Level Trough 15.2 White Blood Count 13.7 H Red Blood Count 3.97 L Hemoglobin 10.8 L Hematocrit 34.4 L Mean Corpuscular Volume 86.6 Mean Corpuscular Hemoglobin 27.2 L Mean Corpuscular Hemoglobin Concent 31.4 L Red Cell Distribution Width 14.7 H Platelet Count 487 #H Mean Platelet Volume 9.2 Neutrophils % 71.5 Lymphocytes % 18.5 Monocytes % 5.9 Eosinophils % 1.8 Basophils % 0.3 Nucleated Red Blood Cells % 0.0 Neutrophils # 9.8 H Lymphocytes # 2.5 Monocytes # 0.8 Eosinophils # 0.2 Basophils # 0.0 Nucleated Red Blood Cells # 0.0 Sodium Level 136 Potassium Level 3.8 Chloride Level 102 Carbon Dioxide Level 28 Anion Gap 10 Blood Urea Nitrogen 13 Creatinine 0.66 Glucose Level 157 Calcium Level 9.3 Medications Medications Current Medications Ondansetron HCl (Zofran Inj) 4 mg Q6H PRN IV NAUSEA AND/OR VOMITING; Start 07/22 at 17:00 Acetaminophen (Tylenol Tab) 650 mg Q6H PRN PO PAIN LEVEL 1-3 OR FEVER; Start at 17:00 Acetaminophen/ Hydrocodone Bitart ([place] (5/325)) 1 tab Q6H PRN PO MODERATE PAIN LEVEL 4-6; Start 11/15/16 at 17:00 Morphine Sulfate (morphine) 2 mg Q4H PRN IV SEVERE PAIN LEVEL 7-10; Start 11/15 at 17:00 Docusate Sodium (Colace) 100 mg Q12H PRN PO CONSTIPATION; Start 11/15/16 at 17: 00 Sodium Biphosphate/ Sodium Phosphate (Fleet Enema) 133 ml DAILY PRN [place] CONSTIPATION; Start 11/15/16 at 17:00 Vancomycin HCl (Vanco Iv Per Pharmacy) VANCOMYCIN PER PHARMACY NOTE XX ; Start 11/15/16 at 17:00 Hydralazine HCl (Apresoline) 10 mg Q6H PRN IV ELEVATED BLOOD PRESSURE; Start at 17:00 Clonidine (Catapres) 0.1 mg Q6H PRN PO ELEVATED BLOOD PRESSURE; Start 11/15/16 at 17:00 Nitroglycerin (Nitroglycerin (Sl Tab) 0.4 Mg) 1 tab Q5M PRN SL ANGINA; Start at 17:00 Dorzolamide/ Timolol (Cosopt) 1 drop BID LEFT EYE Last administered on 08:41; Admin Dose 1 DROP; Start 11/15/16 at 21:00 Latanoprost (Xalatan) 1 drop DAILY LEFT EYE Last administered on 11/21/16 11: 02; Admin Dose 1 DROP; Start 11/16/16 at 09:00 Levothyroxine Sodium (Synthroid) 75 mcg DAILY PO Last administered on 08:42; Admin Dose 75 MCG; Start 11/16/16 at 09:00 Salmeterol Xinafoate/ Fluticasone (Advair 250/50 Diskus) 1 inh BID INH Last administered on 11/21/16 08:41; Admin Dose 1 INH; Start 11/15/16 at 21:00 Sertraline HCl 100 mg 100 mg QHS PO Last administered on 11/20/16 20:21; Admin Dose 100 MG; Start 11/15/16 at 21:00 Cefepime HCl (Maxipime 2gm/50 ml (Pmx)) 50 ml @ 100 mls/hr Q24H IVPB Last administered on 11/21/16 01:33; Admin Dose 100 MLS/HR; Start 11/17/16 at 01:00 Senna/Docusate Sodium (Senokot-S) 2 tab HS PO Last administered on 11/17/16 21 :03; Admin Dose 2 TAB; Start 11/16/16 at 21:00 Lactobacillus Acidophilus/ Rhamnosus (Culturelle) 1 cap BID PO Last administered on 11/21/16 08:42; Admin Dose 1 CAP; Start 11/17/16 at 09:00 Magnesium Hydroxide (Milk Of Mag) 30 ml BID PO Last administered on 11/21/16 08:42; Admin Dose 30 ML; Start 11/17/16 at 14:30 Bisacodyl (Dulcolax Supp) 10 mg DAILY PRN [place] CONSTIPATION; Start 11/17/16 at 14 :30 Mineral Oil (Fleet Mineral Oil Enema) 133 ml DAILY PRN [place] CONSTIPATION; Start 11/17/16 at 14:30 Acetaminophen/ Hydrocodone Bitart ([place] (10/325)) 1 tab Q4H PRN PO PAIN; Start 11/17/16 at 14:30 Zolpidem Tartrate 5 mg 5 mg HS PRN PO INSOMNIA Last administered on 11/20/16 21:59; Admin Dose 5 MG; Start 11/18/16 at 15:00 Vancomycin HCl (Vancocin) 250 ml @ 125 mls/hr Q18H IVPB Last administered on 02:21; Admin Dose 125 MLS/HR; Start 11/19/16 at 13:00 Mirtazapine (Remeron) 7.5 mg BID PO Last administered on 11/21/16 08:42; Admin Dose 7.5 MG; Start 11/19/16 at 21:00 Apixaban (Eliquis) 10 mg BID PO Last administered on 11/21/16 08:44; Admin Dose 10 MG; Start 11/20/16 at 09:00 Pantoprazole (Protonix Tab) 40 mg DAILY@06 PO Last administered on 11/21/16 06 :23; Admin Dose 40 MG; Start 11/20/16 at 06:00 Magnesium Citrate 150 ml 150 ml ONCE ONCE PO ; Start 11/21/16 at 12:00; Stop at 12:01 Fluconazole (Diflucan 200 Mg/ NS (Pmx)) 100 ml @ 100 mls/hr Q24H IVPB ; Start 11/21/16 at 11:00 Furosemide (Lasix) 20 mg DAILY IV ; Start 11/22/16 at 09:00; Status UNV Procedures Procedures PROCEDURE: XR Chest. CLINICAL INDICATION: Cough TECHNIQUE: Anterior chest x-ray. COMPARISON: 10/11/2016 FINDINGS: There are new interstitial infiltrates in the left lung apex and throughout the right lung. There are small bilateral pleural effusions, new compared to previous exam. There is a new bibasilar compressive atelectasis. There is no evidence of pneumothorax. The cardiomediastinal silhouette is unremarkable. The soft tissues are normal. Osseous structures are unremarkable. IMPRESSION: 1. New interstitial infiltrates in the left lung apex and throughout the right lung. 2. New small bilateral pleural effusions with associated bibasilar compressive atelectasis. RPTAT: II .Miki Rogers MD, MD Date Time Electronically viewed and signed by .Miki Rogers MD, MD on 11/19/2016 11: 51 .M/ CC: GALDINO HOPKINS MD, [place] M. Nov 21, 2016 11:52
[2016-11-21] MEDS ORDERED: MAGNESIUM CITRATE 300 ML BTL PO ONE (12:00)
--- NOTE | 2016-11-21 12:38 | RADRPT ---
PROCEDURE: XR Chest 1 View. CLINICAL INDICATION: Shortness of breath TECHNIQUE: AP view of the chest was obtained. COMPARISON: October 11, 2016 FINDINGS: The heart size is within normal limits. Calcified atherosclerosis is noted in the aorta. Lungs are hyperexpanded. Interstitial prominence in both lungs appears chronic. Scattered atelectasis versus minimal infiltrates are identified in the right lower lobe. Atelectasis is noted at the left lung base. Osseous structures are intact. IMPRESSION: Calcified atherosclerosis in the aorta. Hyperexpanded lungs with chronic mild interstitial prominence in both lungs. Findings could reflect COPD. Atelectasis versus minimal infiltrates in the right lower lobe. Atelectasis at the left lung base. RPTAT: AA .Rogelio Daniels MD, Date Time Electronically viewed and signed by .Rogelio Daniels MD, MD on 11/21/2016 12:37 .P/
[2016-11-21] MEDS: FLUCONAZOLE 200 MG/NS (PMX) 100 ML IVPB SCH (13:33)
[2016-11-21] MEDS ORDERED: BETAMET NA PHOS/AC(6 MG/ML) 5ML INJ INJ ONE (15:30)
[2016-11-21] MEDS ORDERED: BUPIVACAINE 0.5%/EPI (SDV) 30 ML INJ INJ ONE (16:00)
[2016-11-21] MEDS ORDERED: DOCUSATE SODIUM 100 MG CAP PO SCH (17:00)
--- NOTE | 2016-11-21 17:02 | CONS ---
Date/Time of Note Date/Time of Note DATE: 11/21/16 TIME: 17:00 Assessment/Plan Assessment/Plan Chief Complaint/Hosp Course SUBJECTIVE: Sleeping, looks comfortable, no fevers, no shortness of breath. MICROBIOLOGY: Blood cultures have been negative. ANTIMICROBIALS: 1. Cefepime. 2. Vancomycin. PHYSICAL EXAMINATION: GENERAL: This is a fragile, elderly woman who is in no distress. HEENT: Head atraumatic, normocephalic. Sclerae anicteric. Buccal mucosa dry. NECK: Supple. CHEST: Rise symmetrical. Breath sounds with bilateral scattered crackles and rhonchi. HEART: S1, S2. ABDOMEN: Soft EXTREMITIES: Without cyanosis. ASSESSMENT: 1. Resolving sepsis with fever and leukocytosis on admission. 2. Health-care associated pneumonia, possibly aspiration. 3. Urinary tract infection. 4. 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 5. Urinary retention==>no acute issues PLAN: Clinically stable, continue present care, complete abx, monitor PVR, pulmonary rec-s DW staff Problems: Consultation Date/Type/Reason Admit Date/Time Nov 15, 2016 at 16:43 Type of Consultation: id Exam/Review of Systems Vital Signs Vitals Vital Signs Date Time Temp Pulse Resp B/P Pulse Ox O2 Delivery O2 Flow Rate FiO2 11/21/16 09:00 Nasal Cannula 3.0 11/21/16 08:14 97.3 95 19 128/72 91 Intake and Output 11/20/16 11/20/16 11/21/16 15:00 23:00 07:00 Intake Total 250 ml 760 ml 1170 ml Output Total 480 ml Balance 250 ml 760 ml 690 ml Results Result Diagram: 11/21/16 0857 11/21/16 0857 Results 24 hrs Laboratory Tests Test 11/21/16 00:00 11/21/16 08:57 Vancomycin Level Trough 15.2 White Blood Count 13.7 H Red Blood Count 3.97 L Hemoglobin 10.8 L Hematocrit 34.4 L Mean Corpuscular Volume 86.6 Mean Corpuscular Hemoglobin 27.2 L Mean Corpuscular Hemoglobin Concent 31.4 L Red Cell Distribution Width 14.7 H Platelet Count 487 #H Mean Platelet Volume 9.2 Neutrophils % 71.5 Lymphocytes % 18.5 Monocytes % 5.9 Eosinophils % 1.8 Basophils % 0.3 Nucleated Red Blood Cells % 0.0 Neutrophils # 9.8 H Lymphocytes # 2.5 Monocytes # 0.8 Eosinophils # 0.2 Basophils # 0.0 Nucleated Red Blood Cells # 0.0 Sodium Level 136 Potassium Level 3.8 Chloride Level 102 Carbon Dioxide Level 28 Anion Gap 10 Blood Urea Nitrogen 13 Creatinine 0.66 Glucose Level 157 Calcium Level 9.3 Medications Medications Current Medications Ondansetron HCl (Zofran Inj) 4 mg Q6H PRN IV NAUSEA AND/OR VOMITING; Start 07/22 at 17:00 Acetaminophen (Tylenol Tab) 650 mg Q6H PRN PO PAIN LEVEL 1-3 OR FEVER; Start at 17:00 Acetaminophen/ Hydrocodone Bitart ([place] (5/325)) 1 tab Q6H PRN PO MODERATE PAIN LEVEL 4-6; Start 11/15/16 at 17:00 Morphine Sulfate (morphine) 2 mg Q4H PRN IV SEVERE PAIN LEVEL 7-10; Start 11/15 at 17:00 Sodium Biphosphate/ Sodium Phosphate (Fleet Enema) 133 ml DAILY PRN [place] CONSTIPATION; Start 11/15/16 at 17:00 Vancomycin HCl (Vanco Iv Per Pharmacy) VANCOMYCIN PER PHARMACY NOTE XX ; Start 11/15/16 at 17:00 Hydralazine HCl (Apresoline) 10 mg Q6H PRN IV ELEVATED BLOOD PRESSURE; Start at 17:00 Clonidine (Catapres) 0.1 mg Q6H PRN PO ELEVATED BLOOD PRESSURE; Start 11/15/16 at 17:00 Nitroglycerin (Nitroglycerin (Sl Tab) 0.4 Mg) 1 tab Q5M PRN SL ANGINA; Start at 17:00 Dorzolamide/ Timolol (Cosopt) 1 drop BID LEFT EYE Last administered on 08:41; Admin Dose 1 DROP; Start 11/15/16 at 21:00 Latanoprost (Xalatan) 1 drop DAILY LEFT EYE Last administered on 11/21/16 11: 02; Admin Dose 1 DROP; Start 11/16/16 at 09:00 Levothyroxine Sodium (Synthroid) 75 mcg DAILY PO Last administered on 08:42; Admin Dose 75 MCG; Start 11/16/16 at 09:00 Salmeterol Xinafoate/ Fluticasone (Advair 250/50 Diskus) 1 inh BID INH Last administered on 11/21/16 08:41; Admin Dose 1 INH; Start 11/15/16 at 21:00 Sertraline HCl 100 mg 100 mg QHS PO Last administered on 11/20/16 20:21; Admin Dose 100 MG; Start 11/15/16 at 21:00 Cefepime HCl (Maxipime 2gm/50 ml (Pmx)) 50 ml @ 100 mls/hr Q24H IVPB Last administered on 11/21/16 01:33; Admin Dose 100 MLS/HR; Start 11/17/16 at 01:00 Senna/Docusate Sodium (Senokot-S) 2 tab HS PO Last administered on 11/17/16 21 :03; Admin Dose 2 TAB; Start 11/16/16 at 21:00 Lactobacillus Acidophilus/ Rhamnosus (Culturelle) 1 cap BID PO Last administered on 11/21/16 08:42; Admin Dose 1 CAP; Start 11/17/16 at 09:00 Magnesium Hydroxide (Milk Of Mag) 30 ml BID PO Last administered on 11/21/16 08:42; Admin Dose 30 ML; Start 11/17/16 at 14:30 Bisacodyl (Dulcolax Supp) 10 mg DAILY PRN [place] CONSTIPATION; Start 11/17/16 at 14 :30 Mineral Oil (Fleet Mineral Oil Enema) 133 ml DAILY PRN [place] CONSTIPATION; Start 11/17/16 at 14:30 Acetaminophen/ Hydrocodone Bitart ([place] (10/325)) 1 tab Q4H PRN PO PAIN; Start 11/17/16 at 14:30 Zolpidem Tartrate 5 mg 5 mg HS PRN PO INSOMNIA Last administered on 11/20/16 21:59; Admin Dose 5 MG; Start 11/18/16 at 15:00 Vancomycin HCl (Vancocin) 250 ml @ 125 mls/hr Q18H IVPB Last administered on 02:21; Admin Dose 125 MLS/HR; Start 11/19/16 at 13:00 Mirtazapine (Remeron) 7.5 mg BID PO Last administered on 11/21/16 08:42; Admin Dose 7.5 MG; Start 11/19/16 at 21:00 Apixaban (Eliquis) 10 mg BID PO Last administered on 11/21/16 08:44; Admin Dose 10 MG; Start 11/20/16 at 09:00 Pantoprazole 40 mg 40 mg DAILY@06 PO Last administered on 11/21/16 06:23; Admin Dose 40 MG; Start 11/20/16 at 06:00 Fluconazole (Diflucan 200 Mg/ NS (Pmx)) 100 ml @ 100 mls/hr Q24H IVPB Last administered on 11/21/16 13:33; Admin Dose 100 MLS/HR; Start 11/21/16 at 11:00 Furosemide (Lasix) 20 mg DAILY IV ; Start 11/22/16 at 09:00 YASMANY BECERRA NP Nov 21, 2016 17:02
[2016-11-21 18:05] VITALS: BP 136/72; PULSE 95; RESP 18
[2016-11-21 19:00] VITALS: BP 132/61; RESP 20
[2016-11-21] MEDS: SERTRALINE 100 MG TAB PO SCH (20:58)
[2016-11-21] MEDS: ZOLPIDEM 5 MG TAB PO PRN (20:59)
[2016-11-21] MEDS: SENNA/DOCUSATE NA (8.6MG/50MG) TAB PO SCH (21:00)
[2016-11-22] MEDS: CEFEPIME 2GM/50 ML (PMX) 50 ML IVPB SCH (01:38)
[2016-11-22] MEDS: PANTOPRAZOLE (EC) 40 MG TAB PO SCH (05:24)
[2016-11-22 05:36] VITALS: BP 149/70; PULSE 72
[2016-11-22 07:24] LABS: ADD SCAN DIFF NO
[2016-11-22 07:38] LABS: BASOPHIL # 0.1 10^3/ul (0.0-0.1); BASOPHILS % 0.3 % (0.0-2.0); EOSINOPHILS # 0.3 10^3/ul (0.0-0.5); EOSINOPHILS % 1.4 % (0.0-7.0); HEMATOCRIT 32.3 % (37.0-47.0); HEMOGLOBIN 9.9 g/dl (12.0-16.0); LYMPHOCYTES # 2.7 10^3/ul (0.8-2.9); LYMPHOCYTES % 14.7 % (15.0-51.0); MEAN CORPUSCULAR HGB CONC 30.7 g/dl (32.0-37.0); MEAN PLATELET VOLUME 9.5 fl (7.4-10.4); MONOCYTE # 1.2 10^3/ul (0.3-0.9); MONOCYTES % 6.4 % (0.0-11.0); NEUTROPHIL # 14.1 10^3/ul (1.6-7.5); NEUTROPHILS % 76.2 % (39.0-77.0); PLATELET COUNT 479 10^3/UL (140-415); RED BLOOD COUNT 3.67 10^6/ul (4.20-5.40); WHITE BLOOD COUNT 18.4 10^3/ul (4.8-10.8)
[2016-11-22 08:02] LABS: POTASSIUM 3.7 mmol/L (3.5-5.1)
[2016-11-22 08:05] LABS: CALCIUM 9.1 mg/dl (8.4-10.2); CREATININE 0.68 mg/dl (0.44-1.00)
[2016-11-22 08:07] VITALS: BP 148/74; RESP 20
--- NOTE | 2016-11-22 08:46 | RADRPT ---
PROCEDURE: XR Chest 1 View. CLINICAL INDICATION: Shortness of breath. TECHNIQUE: AP view of the chest was obtained. COMPARISON: Yesterday. FINDINGS: The heart size is within normal limits. Calcified atherosclerosis is noted in the aorta. Diffuse in terstitial prominence in both lungs is unchanged. Superimposed atelectasis versus minimal scattered infiltrates throughout the right lower lobe are stable. Atelectasis is noted at the left lung base . The osseous structures are osteopenic, but appear grossly intact. IMPRESSION: Calcified atherosclerosis in the aorta. Stable diffuse interstitial prominence in both lungs. Interstitial prominence could be chronic. Stable superimposed atelectasis versus mild infiltrates in the right lower lobe. Atelectasis at the left lung base. Overall appearance is unchanged from prior exam. RPTAT: AA .Rogelio Daniels MD, Date Time Electronically viewed and signed by .Rogelio Daniels MD, MD on 11/22/2016 08:46 .P/
[2016-11-22] MEDS: MAGNESIUM HYDROXIDE 30ML CUP PO SCH ×2 (09:00→21:00)
[2016-11-22] MEDS: FUROSEMIDE 20 MG INJ IV SCH (09:52)
[2016-11-22] MEDS: APIXABAN 5 MG TABLET PO SCH ×2 (09:53→21:26)
[2016-11-22] MEDS: MIRTAZAPINE 15 MG TAB PO SCH ×2 (09:53→21:26)
[2016-11-22] MEDS: DORZOLAMIDE/TIMOLOL 10 ML OPH LEFT EYE SCH ×2 (09:53→21:26)
[2016-11-22] MEDS: LEVOTHYROXINE 75 MCG TAB PO SCH (09:53)
[2016-11-22] MEDS: SALMETEROL/FLUTICASONE 250/50 INHA INH SCH ×2 (09:53→21:30)
[2016-11-22] MEDS: LATANOPROST 0.005% 2.5 ML OPH LEFT EYE SCH (09:54)
[2016-11-22] MEDS: LACTOBACILLUS RHAMNOSUS CAP PO SCH ×2 (09:54→21:26)
--- NOTE | 2016-11-22 12:02 | CONS ---
Date/Time of Note Date/Time of Note DATE: 11/22/16 TIME: 12:00 Assessment/Plan Assessment/Plan Additional Assessment/Plan X-ray was reviewed from today which is showing significant improvement in right- sided infiltrative changes. Assessment recommendations; 1. Patient admitted with right-sided pneumonia with significant clinical and radiological improvement. 2. Underlying COPD. 3. History of irritable bowel syndrome. Continue current treatment. Consultation Date/Type/Reason Admit Date/Time Nov 15, 2016 at 16:43 Type of Consultation: Pulmonary 24 HR Interval Summary Free Text/Dictation Patient condition stable. Denies any shortness of breath, cough, chest pain, wheezing or sputum production. General exam; elderly lady, awake alert currently in no distress. Exam/Review of Systems Vital Signs Vitals Vital Signs Date Time Temp Pulse Resp B/P Pulse Ox O2 Delivery O2 Flow Rate FiO2 11/22/16 08:07 97.7 88 20 148/74 93 11/21/16 20:00 Nasal Cannula 3.0 Intake and Output 11/21/16 11/21/16 11/22/16 15:00 23:00 07:00 Intake Total 100 ml 730 ml 390 ml Balance 100 ml 730 ml 390 ml Exam HEENT exam is; supple neck, no JVD. No lymphadenopathy. Midline trachea. No thyromegaly. Pharynx is clear. Pupils are small bilaterally. Patient has a multiple carious teeth. Chest exam is; clear to auscultation. S1-S2 audible, no murmurs. Regular rhythm. Abdomen exam is; soft, nontender, non-distended. No organomegaly. Bowel sounds audible. Extremity exam; no peripheral edema. 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 Results Result Diagram: 11/22/16 0656 11/22/16 0656 Results 24 hrs Laboratory Tests Test 11/22/16 06:56 White Blood Count 18.4 #H Red Blood Count 3.67 L Hemoglobin 9.9 L Hematocrit 32.3 L Mean Corpuscular Volume 88.0 Mean Corpuscular Hemoglobin 27.0 L Mean Corpuscular Hemoglobin Concent 30.7 L Red Cell Distribution Width 15.0 H Platelet Count 479 H Mean Platelet Volume 9.5 Neutrophils % 76.2 Lymphocytes % 14.7 L Monocytes % 6.4 Eosinophils % 1.4 Basophils % 0.3 Nucleated Red Blood Cells % 0.0 Neutrophils # 14.1 H Lymphocytes # 2.7 Monocytes # 1.2 H Eosinophils # 0.3 Basophils # 0.1 Nucleated Red Blood Cells # 0.0 Sodium Level 139 Potassium Level 3.7 Chloride Level 101 Carbon Dioxide Level 28 Anion Gap 14 Blood Urea Nitrogen 18 Creatinine 0.68 Glucose Level 113 # Calcium Level 9.1 Medications Medications Current Medications Ondansetron HCl (Zofran Inj) 4 mg Q6H PRN IV NAUSEA AND/OR VOMITING; Start 07/22 at 17:00 Acetaminophen (Tylenol Tab) 650 mg Q6H PRN PO PAIN LEVEL 1-3 OR FEVER; Start at 17:00 Acetaminophen/ Hydrocodone Bitart ([place] (5/325)) 1 tab Q6H PRN PO MODERATE PAIN LEVEL 4-6; Start 11/15/16 at 17:00 Morphine Sulfate (morphine) 2 mg Q4H PRN IV SEVERE PAIN LEVEL 7-10; Start 11/15 at 17:00 Sodium Biphosphate/ Sodium Phosphate (Fleet Enema) 133 ml DAILY PRN [place] CONSTIPATION; Start 11/15/16 at 17:00 Vancomycin HCl (Vanco Iv Per Pharmacy) VANCOMYCIN PER PHARMACY NOTE XX ; Start 11/15/16 at 17:00 Hydralazine HCl (Apresoline) 10 mg Q6H PRN IV ELEVATED BLOOD PRESSURE; Start at 17:00 Clonidine (Catapres) 0.1 mg Q6H PRN PO ELEVATED BLOOD PRESSURE; Start 11/15/16 at 17:00 Nitroglycerin (Nitroglycerin (Sl Tab) 0.4 Mg) 1 tab Q5M PRN [place] ANGINA; Start at 17:00 Dorzolamide/ Timolol (Cosopt) 1 drop BID LEFT EYE Last administered on 09:53; Admin Dose 1 DROP; Start 11/15/16 at 21:00 Latanoprost (Xalatan) 1 drop DAILY LEFT EYE Last administered on 11/22/16 09: 54; Admin Dose 1 DROP; Start 11/16/16 at 09:00 Levothyroxine Sodium (Synthroid) 75 mcg DAILY PO Last administered on 09:53; Admin Dose 75 MCG; Start 11/16/16 at 09:00 Salmeterol Xinafoate/ Fluticasone (Advair 250/50 Diskus) 1 inh BID INH Last administered on 11/22/16 09:53; Admin Dose 1 INH; Start 11/15/16 at 21:00 Sertraline HCl 100 mg 100 mg QHS PO Last administered on 11/21/16 20:58; Admin Dose 100 MG; Start 11/15/16 at 21:00 Cefepime HCl (Maxipime 2gm/50 ml (Pmx)) 50 ml @ 100 mls/hr Q24H IVPB Last administered on 11/22/16 01:38; Admin Dose 100 MLS/HR; Start 11/17/16 at 01:00 Senna/Docusate Sodium (Senokot-S) 2 tab HS PO Last administered on 11/17/16 21 :03; Admin Dose 2 TAB; Start 11/16/16 at 21:00 Lactobacillus Acidophilus/ Rhamnosus (Culturelle) 1 cap BID PO Last administered on 11/22/16 09:54; Admin Dose 1 CAP; Start 11/17/16 at 09:00 Magnesium Hydroxide (Milk Of Mag) 30 ml BID PO Last administered on 11/21/16 08:42; Admin Dose 30 ML; Start 11/17/16 at 14:30 Bisacodyl (Dulcolax Supp) 10 mg DAILY PRN [place] CONSTIPATION; Start 11/17/16 at 14 :30 Mineral Oil (Fleet Mineral Oil Enema) 133 ml DAILY PRN [place] CONSTIPATION; Start 11/17/16 at 14:30 Acetaminophen/ Hydrocodone Bitart ([place] (10/325)) 1 tab Q4H PRN PO PAIN; Start 11/17/16 at 14:30 Zolpidem Tartrate 5 mg 5 mg HS PRN PO INSOMNIA Last administered on 11/21/16 20:59; Admin Dose 5 MG; Start 11/18/16 at 15:00 Vancomycin HCl (Vancocin) 250 ml @ 125 mls/hr Q18H IVPB Last administered on 19:30; Admin Dose 125 MLS/HR; Start 11/19/16 at 13:00 Mirtazapine (Remeron) 7.5 mg BID PO Last administered on 11/22/16 09:53; Admin Dose 7.5 MG; Start 11/19/16 at 21:00 Apixaban (Eliquis) 10 mg BID PO Last administered on 11/22/16 09:53; Admin Dose 10 MG; Start 11/20/16 at 09:00 Pantoprazole 40 mg 40 mg DAILY@06 PO Last administered on 11/22/16 05:24; Admin Dose 40 MG; Start 11/20/16 at 06:00 Fluconazole (Diflucan 200 Mg/ NS (Pmx)) 100 ml @ 100 mls/hr Q24H IVPB Last administered on 11/21/16 13:33; Admin Dose 100 MLS/HR; Start 11/21/16 at 11:00 Furosemide (Lasix) 20 mg DAILY IV Last administered on 11/22/16 09:52; Admin Dose 20 MG; Start 11/22/16 at 09:00 NATALY PAGE Nov 22, 2016 12:02
[2016-11-22] MEDS: FLUCONAZOLE 200 MG/NS (PMX) 100 ML IVPB SCH (12:18)
[2016-11-22] MEDS: VANCOMYCIN 1 GM in NS 250 ML IVPB SCH (13:00)
[2016-11-22] MEDS ORDERED: LEVO500T10 PO (13:35)
[2016-11-22] MEDS ORDERED: LEVA15HF6 INH (13:36)
--- NOTE | 2016-11-22 13:38 | PDOCDIS ---
Discharge Instructions CONDITION Patient Condition: Stable HOME CARE INSTRUCTIONS: Special Diet: Low cholesterol, Low Fat, 2gm Sodium Diet ACTIVITY: Activity Restrictions: Slowly Increase Activity Avoid heavy lifting FOLLOW UP/APPOINTMENTS Appointments follow-up with primary care Doctor OTHER ORDERS: Other Orders: Return to hospital for Shortness of breath, fever/chills, severe pain. LISA ENGLISH MD Nov 22, 2016 13:38
[2016-11-22] MEDS ORDERED: LACT1CAP57 PO (14:10)
[2016-11-22] MEDS ORDERED: APIX5TAB PO (14:10)
[2016-11-22] MEDS ORDERED: PANT40TA4 PO (14:10)
[2016-11-22] MEDS ORDERED: BISA10SU75 PR (14:10)
[2016-11-22] MEDS ORDERED: HYDR-3498 PO (14:11)
[2016-11-22] MEDS ORDERED: NIT4 SL (14:11)
[2016-11-22] MEDS ORDERED: SENN-88 PO (14:11)
[2016-11-22] MEDS ORDERED: ACET325T40 PO (14:11)
[2016-11-22] MEDS ORDERED: ZOLP5TAB PO (14:11)
[2016-11-22] MEDS ORDERED: MOR2I IV (14:11)
[2016-11-22] MEDS ORDERED: Hydrocodone/Apap (10/325) PO (14:11)
[2016-11-22] MEDS ORDERED: ONDA4VIA2 IV (14:11)
[2016-11-22] MEDS ORDERED: MIRT15TA5 PO (14:11)
[2016-11-22] MEDS ORDERED: APRS IV (14:11)
[2016-11-22] MEDS ORDERED: CLON0.1T14 PO (14:11)
--- NOTE | 2016-11-22 15:01 | CONS ---
Date/Time of Note Date/Time of Note DATE: 11/22/16 TIME: 15:00 Assessment/Plan Assessment/Plan Chief Complaint/Hosp Course SUBJECTIVE: Alert, feels good,, denies n/v/d, no fevers, no shortness of breath. MICROBIOLOGY: Blood cultures have been negative. ANTIMICROBIALS: 1. Cefepime. 2. Vancomycin. PHYSICAL EXAMINATION: GENERAL: This is a fragile, elderly woman who is in no distress. HEENT: Head atraumatic, normocephalic. Sclerae anicteric. Buccal mucosa dry. NECK: Supple. CHEST: Rise symmetrical. Breath sounds with bilateral scattered crackles and rhonchi. HEART: S1, S2. ABDOMEN: Soft EXTREMITIES: Without cyanosis. ASSESSMENT: 1. Resolving sepsis with fever and leukocytosis on admission. 2. Health-care associated pneumonia, possibly aspiration. 3. Urinary tract infection. 4. 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 5. Urinary retention==>no acute issues PLAN: Remains stable, will downgrade abx to oral Levaquin DW staff Problems: Consultation Date/Type/Reason Admit Date/Time Nov 15, 2016 at 16:43 Type of Consultation: id Exam/Review of Systems Vital Signs Vitals Vital Signs Date Time Temp Pulse Resp B/P Pulse Ox O2 Delivery O2 Flow Rate FiO2 11/22/16 08:07 97.7 88 20 148/74 93 11/21/16 20:00 Nasal Cannula 3.0 Intake and Output 11/21/16 11/21/16 11/22/16 14:59 22:59 06:59 Intake Total 100 ml 730 ml 390 ml Balance 100 ml 730 ml 390 ml Results Result Diagram: 11/22/16 0656 11/22/16 0656 Results 24 hrs Laboratory Tests Test 11/22/16 06:56 White Blood Count 18.4 #H Red Blood Count 3.67 L Hemoglobin 9.9 L Hematocrit 32.3 L Mean Corpuscular Volume 88.0 Mean Corpuscular Hemoglobin 27.0 L Mean Corpuscular Hemoglobin Concent 30.7 L Red Cell Distribution Width 15.0 H Platelet Count 479 H Mean Platelet Volume 9.5 Neutrophils % 76.2 Lymphocytes % 14.7 L Monocytes % 6.4 Eosinophils % 1.4 Basophils % 0.3 Nucleated Red Blood Cells % 0.0 Neutrophils # 14.1 H Lymphocytes # 2.7 Monocytes # 1.2 H Eosinophils # 0.3 Basophils # 0.1 Nucleated Red Blood Cells # 0.0 Sodium Level 139 Potassium Level 3.7 Chloride Level 101 Carbon Dioxide Level 28 Anion Gap 14 Blood Urea Nitrogen 18 Creatinine 0.68 Glucose Level 113 # Calcium Level 9.1 Medications Medications Current Medications Ondansetron HCl (Zofran Inj) 4 mg Q6H PRN IV NAUSEA AND/OR VOMITING; Start 07/22 at 17:00 Acetaminophen (Tylenol Tab) 650 mg Q6H PRN PO PAIN LEVEL 1-3 OR FEVER; Start at 17:00 Acetaminophen/ Hydrocodone Bitart ([place] (5/325)) 1 tab Q6H PRN PO MODERATE PAIN LEVEL 4-6; Start 11/15/16 at 17:00 Morphine Sulfate (morphine) 2 mg Q4H PRN IV SEVERE PAIN LEVEL 7-10; Start 11/15 at 17:00 Sodium Biphosphate/ Sodium Phosphate (Fleet Enema) 133 ml DAILY PRN [place] CONSTIPATION; Start 11/15/16 at 17:00 Vancomycin HCl (Vanco Iv Per Pharmacy) VANCOMYCIN PER PHARMACY NOTE XX ; Start 11/15/16 at 17:00 Hydralazine HCl (Apresoline) 10 mg Q6H PRN IV ELEVATED BLOOD PRESSURE; Start at 17:00 Clonidine (Catapres) 0.1 mg Q6H PRN PO ELEVATED BLOOD PRESSURE; Start 11/15/16 at 17:00 Nitroglycerin (Nitroglycerin (Sl Tab) 0.4 Mg) 1 tab Q5M PRN SL ANGINA; Start at 17:00 Dorzolamide/ Timolol (Cosopt) 1 drop BID LEFT EYE Last administered on 09:53; Admin Dose 1 DROP; Start 11/15/16 at 21:00 Latanoprost (Xalatan) 1 drop DAILY LEFT EYE Last administered on 11/22/16 09: 54; Admin Dose 1 DROP; Start 11/16/16 at 09:00 Levothyroxine Sodium (Synthroid) 75 mcg DAILY PO Last administered on 09:53; Admin Dose 75 MCG; Start 11/16/16 at 09:00 Salmeterol Xinafoate/ Fluticasone (Advair 250/50 Diskus) 1 inh BID INH Last administered on 11/22/16 09:53; Admin Dose 1 INH; Start 11/15/16 at 21:00 Sertraline HCl 100 mg 100 mg QHS PO Last administered on 11/21/16 20:58; Admin Dose 100 MG; Start 11/15/16 at 21:00 Cefepime HCl (Maxipime 2gm/50 ml (Pmx)) 50 ml @ 100 mls/hr Q24H IVPB Last administered on 11/22/16 01:38; Admin Dose 100 MLS/HR; Start 11/17/16 at 01:00 Senna/Docusate Sodium (Senokot-S) 2 tab HS PO Last administered on 11/17/16 21 :03; Admin Dose 2 TAB; Start 11/16/16 at 21:00 Lactobacillus Acidophilus/ Rhamnosus (Culturelle) 1 cap BID PO Last administered on 11/22/16 09:54; Admin Dose 1 CAP; Start 11/17/16 at 09:00 Magnesium Hydroxide (Milk Of Mag) 30 ml BID PO Last administered on 11/21/16 08:42; Admin Dose 30 ML; Start 11/17/16 at 14:30 Bisacodyl (Dulcolax Supp) 10 mg DAILY PRN [place] CONSTIPATION; Start 11/17/16 at 14 :30 Mineral Oil (Fleet Mineral Oil Enema) 133 ml DAILY PRN [place] CONSTIPATION; Start 11/17/16 at 14:30 Acetaminophen/ Hydrocodone Bitart ([place] (10/325)) 1 tab Q4H PRN PO PAIN; Start 11/17/16 at 14:30 Zolpidem Tartrate 5 mg 5 mg HS PRN PO INSOMNIA Last administered on 11/21/16 20:59; Admin Dose 5 MG; Start 11/18/16 at 15:00 Vancomycin HCl (Vancocin) 250 ml @ 125 mls/hr Q18H IVPB Last administered on 19:30; Admin Dose 125 MLS/HR; Start 11/19/16 at 13:00 Mirtazapine (Remeron) 7.5 mg BID PO Last administered on 11/22/16 09:53; Admin Dose 7.5 MG; Start 11/19/16 at 21:00 Apixaban (Eliquis) 10 mg BID PO Last administered on 11/22/16 09:53; Admin Dose 10 MG; Start 11/20/16 at 09:00 Pantoprazole 40 mg 40 mg DAILY@06 PO Last administered on 11/22/16 05:24; Admin Dose 40 MG; Start 11/20/16 at 06:00 Fluconazole (Diflucan 200 Mg/ NS (Pmx)) 100 ml @ 100 mls/hr Q24H IVPB Last administered on 11/22/16 12:18; Admin Dose 100 MLS/HR; Start 11/21/16 at 11:00 Furosemide (Lasix) 20 mg DAILY IV Last administered on 11/22/16 09:52; Admin Dose 20 MG; Start 11/22/16 at 09:00 YASMANY BECERRA NP Nov 22, 2016 15:01
[2016-11-22 20:38] VITALS: BP 137/63; RESP 18
[2016-11-22] MEDS: SENNA/DOCUSATE NA (8.6MG/50MG) TAB PO SCH (21:00)
[2016-11-22] MEDS ORDERED: VITAMIN A & D 5 GM OINT PACKET TOP ONE (21:22)
[2016-11-22] MEDS: ZOLPIDEM 5 MG TAB PO PRN (21:26)
[2016-11-22] MEDS: SERTRALINE 100 MG TAB PO SCH (21:26)
[2016-11-23] MEDS ORDERED: LEVOFLOXACIN 500 MG TAB PO SCH (06:00)
[2016-11-23] MEDS: LEVOFLOXACIN 500 MG TAB PO SCH (06:16)
[2016-11-23] MEDS: PANTOPRAZOLE (EC) 40 MG TAB PO SCH (06:17)
[2016-11-23 08:06] VITALS: BP 153/72; RESP 20
[2016-11-23] MEDS: FUROSEMIDE 20 MG INJ IV SCH (09:00)
[2016-11-23] MEDS: MAGNESIUM HYDROXIDE 30ML CUP PO SCH ×3 (09:00→21:00)
[2016-11-23] MEDS: APIXABAN 5 MG TABLET PO SCH ×2 (09:12→21:18)
[2016-11-23] MEDS: MIRTAZAPINE 15 MG TAB PO SCH ×2 (09:12→21:17)
[2016-11-23] MEDS: FLUCONAZOLE 100 MG TAB PO SCH (09:12)
[2016-11-23] MEDS: DORZOLAMIDE/TIMOLOL 10 ML OPH LEFT EYE SCH ×2 (09:12→21:19)
[2016-11-23] MEDS: LACTOBACILLUS RHAMNOSUS CAP PO SCH ×2 (09:12→21:17)
[2016-11-23] MEDS: SALMETEROL/FLUTICASONE 250/50 INHA INH SCH ×2 (09:12→21:19)
[2016-11-23] MEDS: LATANOPROST 0.005% 2.5 ML OPH LEFT EYE SCH (09:13)
[2016-11-23] MEDS: LEVOTHYROXINE 75 MCG TAB PO SCH (09:13)
[2016-11-23 10:50] LABS: ADD SCAN DIFF NO
[2016-11-23 10:53] LABS: BASOPHIL # 0.1 10^3/ul (0.0-0.1); BASOPHILS % 0.5 % (0.0-2.0); EOSINOPHILS # 0.2 10^3/ul (0.0-0.5); EOSINOPHILS % 1.2 % (0.0-7.0); HEMATOCRIT 32.5 % (37.0-47.0); HEMOGLOBIN 9.9 g/dl (12.0-16.0); LYMPHOCYTES # 1.9 10^3/ul (0.8-2.9); LYMPHOCYTES % 14.5 % (15.0-51.0); MEAN CORPUSCULAR HEMOGLOBIN 27.2 pg (29.0-33.0); MEAN CORPUSCULAR HGB CONC 30.5 g/dl (32.0-37.0); MEAN CORPUSCULAR VOLUME 89.3 fl (82.0-101.0); MEAN PLATELET VOLUME 9.3 fl (7.4-10.4); MONOCYTES % 7.5 % (0.0-11.0); NEUTROPHIL # 9.9 10^3/ul (1.6-7.5); NEUTROPHILS % 75.4 % (39.0-77.0); PLATELET COUNT 462 10^3/UL (140-415); RED BLOOD COUNT 3.64 10^6/ul (4.20-5.40); RED CELL DISTRIBUTION WIDTH 15.1 % (11.5-14.5); WHITE BLOOD COUNT 13.1 10^3/ul (4.8-10.8)
--- NOTE | 2016-11-23 10:57 | CONS ---
Date/Time of Note Date/Time of Note DATE: 11/23/16 TIME: 10:55 Assessment/Plan Assessment/Plan Additional Assessment/Plan Assessment recommendations; next 1. Patient admitted with right-sided pneumonia with significant clinical and radiological improvement, off antibiotics now. 2. History of irritable bowel syndrome. 3. Stable COPD. Continue current treatment. Patient can be discharged home. Consultation Date/Type/Reason Admit Date/Time Nov 15, 2016 at 16:43 Type of Consultation: Pulmonary 24 HR Interval Summary Free Text/Dictation Patient is doing very well. Denies any shortness of breath, cough, wheezing fever chest pain. General exam; elderly lady, awake alert currently in no distress. Exam/Review of Systems Vital Signs Vitals Vital Signs Date Time Temp Pulse Resp B/P Pulse Ox O2 Delivery O2 Flow Rate FiO2 11/23/16 08:06 97.6 94 20 153/72 94 11/22/16 20:00 Nasal Cannula 3.0 Intake and Output 11/22/16 11/22/16 11/23/16 14:59 22:59 06:59 Intake Total 960 ml 600 ml Balance 960 ml 600 ml Exam HEENT exam is; supple neck, no JVD. No lymphadenopathy. Midline trachea. No thyromegaly. Pharynx is clear. Pupils are small bilaterally. Chest examination; clear to auscultation. S1-S2 audible, no murmurs. Abdomen examination; soft, nondistended. No organomegaly. Bowel sounds audible. Extremity exam is; no peripheral edema. Pulses 1+ bilaterally. RESTORATIVE COORDINATOR examination; no focal deficit. Results Result Diagram: 11/22/16 0656 11/22/16 0656 Medications Medications Current Medications Ondansetron HCl (Zofran Inj) 4 mg Q6H PRN IV NAUSEA AND/OR VOMITING; Start 07/22 at 17:00 Acetaminophen (Tylenol Tab) 650 mg Q6H PRN PO PAIN LEVEL 1-3 OR FEVER; Start at 17:00 Acetaminophen/ Hydrocodone Bitart ([place] (5/325)) 1 tab Q6H PRN PO MODERATE PAIN LEVEL 4-6; Start 11/15/16 at 17:00 Morphine Sulfate (morphine) 2 mg Q4H PRN IV SEVERE PAIN LEVEL 7-10; Start 11/15 at 17:00 Sodium Biphosphate/ Sodium Phosphate (Fleet Enema) 133 ml DAILY PRN [place] CONSTIPATION; Start 11/15/16 at 17:00 Hydralazine HCl (Apresoline) 10 mg Q6H PRN IV ELEVATED BLOOD PRESSURE; Start at 17:00 Clonidine (Catapres) 0.1 mg Q6H PRN PO ELEVATED BLOOD PRESSURE; Start 11/15/16 at 17:00 Nitroglycerin (Nitroglycerin (Sl Tab) 0.4 Mg) 1 tab Q5M PRN SL ANGINA; Start at 17:00 Dorzolamide/ Timolol (Cosopt) 1 drop BID LEFT EYE Last administered on 09:12; Admin Dose 1 DROP; Start 11/15/16 at 21:00 Latanoprost (Xalatan) 1 drop DAILY LEFT EYE Last administered on 11/23/16 09: 13; Admin Dose 1 DROP; Start 11/16/16 at 09:00 Levothyroxine Sodium (Synthroid) 75 mcg DAILY PO Last administered on 09:13; Admin Dose 75 MCG; Start 11/16/16 at 09:00 Salmeterol Xinafoate/ Fluticasone (Advair 250/50 Diskus) 1 inh BID INH Last administered on 11/23/16 09:12; Admin Dose 1 INH; Start 11/15/16 at 21:00 Sertraline HCl (Zoloft) 100 mg QHS PO Last administered on 11/22/16 21:26; Admin Dose 100 MG; Start 11/15/16 at 21:00 Senna/Docusate Sodium (Senokot-S) 2 tab HS PO Last administered on 11/17/16 21 :03; Admin Dose 2 TAB; Start 11/16/16 at 21:00 Lactobacillus Acidophilus/ Rhamnosus (Culturelle) 1 cap BID PO Last administered on 11/23/16 09:12; Admin Dose 1 CAP; Start 11/17/16 at 09:00 Magnesium Hydroxide (Milk Of Mag) 30 ml BID PO Last administered on 11/21/16 08:42; Admin Dose 30 ML; Start 11/17/16 at 14:30 Bisacodyl (Dulcolax Supp) 10 mg DAILY PRN [place] CONSTIPATION; Start 11/17/16 at 14 :30 Mineral Oil (Fleet Mineral Oil Enema) 133 ml DAILY PRN [place] CONSTIPATION; Start 11/17/16 at 14:30 Acetaminophen/ Hydrocodone Bitart ([place] (10/325)) 1 tab Q4H PRN PO PAIN; Start 11/17/16 at 14:30 Zolpidem Tartrate (Ambien) 5 mg HS PRN PO INSOMNIA Last administered on 21:26; Admin Dose 5 MG; Start 11/18/16 at 15:00 Mirtazapine (Remeron) 7.5 mg BID PO Last administered on 11/23/16 09:12; Admin Dose 7.5 MG; Start 11/19/16 at 21:00 Apixaban (Eliquis) 10 mg BID PO Last administered on 11/23/16 09:12; Admin Dose 10 MG; Start 11/20/16 at 09:00 Pantoprazole (Protonix Tab) 40 mg DAILY@06 PO Last administered on 11/23/16 06 :17; Admin Dose 40 MG; Start 11/20/16 at 06:00 Furosemide (Lasix) 20 mg DAILY IV Last administered on 11/22/16 09:52; Admin Dose 20 MG; Start 11/22/16 at 09:00 Fluconazole (Diflucan) 100 mg DAILY PO Last administered on 11/23/16 09:12; Admin Dose 100 MG; Start 11/23/16 at 09:00 Levofloxacin (Levaquin) 500 mg DAILY@06 PO Last administered on 11/23/16 06:16 ; Admin Dose 500 MG; Start 11/23/16 at 06:00 NATALY PAGE Nov 23, 2016 10:57
[2016-11-23 11:04] LABS: CREATININE 0.79 mg/dl (0.44-1.00)
[2016-11-23 11:05] LABS: CALCIUM 9.2 mg/dl (8.4-10.2)
[2016-11-23] MEDS ORDERED: BETAMET NA PHOS/AC(6 MG/ML) 5ML INJ INJ ONE (12:00)
[2016-11-23] MEDS ORDERED: BUPIVACAINE 0.5%/EPI (SDV) 30 ML INJ INJ ONE (12:00)
--- NOTE | 2016-11-23 12:35 | PN ---
Date/Time of Note Date/Time of Note DATE: 11/22/16 TIME: 19:00 Assessment/Plan VTE Prophylaxis VTE Prophylaxis Intervention: SCD's (Eliquis) Lines/Catheters IV [facility]ter [facility] (from [facility]): Saline Lock Urinary Cath still in place: No Assessment/Plan Assessment/Plan 1. Bilateral Pneumonia with recurrent bilateral pleural effusions R>L * Status post thoracentesis on 10/04/2016. 2. Acute deep vein thrombosis of the left common femoral vein and popliteal vein. Continue anticoagulation. 3. Acute respiratory failure. Hypoxic. Most probably secondary to underlying healthcare-associated pneumonia. 4. Chronic obstructive pulmonary disease: s/p exacerbation 5. 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 Hx of abd abscesses Status post exploratory laparotomy and abdominal washout with a small bowel resection x2 on 09/20/2016. 7. Reported hx of Irritable bowel syndrome. Continue to monitor. 8. Chronic Depression. 9. Anemia, most probably anemia of chronic disease 10. Hypothyroidism: stable 11. Dyslipidemia with low HDL PLAN: * Continue current medical mgmt. Abx has been transitioned to oral Levaquin * Reduce lasix to daily dosing starting tomorrow if ok with pulm * Per previous note, Dr Escudero had been notified about pt's thumb * Laxative PRN constipation, but pt had 3 loose bowel movements this morning, so need to be careful not to over medicate especially given her recent bout of diarrhea. * Continue inhaled bronchodilators and wean off supplemental oxygen. * Continue all other home meds with adjustment as needed. * Continue in-house PT DISP: Pending Acute Rehab Eval. Pt and daughter do not want to go back to SNF and daughter stated that she wouldn't be accepted because of "infection" (VRE in stool) Subjective 24 Hr Interval Summary Free Text/Dictation pt had a lot of question about her medical condition and her mgmt. She said her diarrhea was a result of her current hospitalization. Later on in late afternoon, I have visited pt, mainly to talk to her daughter. Daughter stated that she has not been happy with her Mom's mgmt and also by changing of Doctors. She requested that pt be transferred to Acute Rehab here. Exam/Review of Systems Vital Signs Vitals Vital Signs Date Time Temp Pulse Resp B/P Pulse Ox O2 Delivery O2 Flow Rate FiO2 11/23/16 08:06 97.6 94 20 153/72 94 11/22/16 20:00 Nasal Cannula 3.0 Intake and Output 11/22/16 11/22/16 11/23/16 15:00 23:00 07:00 Intake Total 960 ml 600 ml Balance 960 ml 600 ml Exam Constitutional: alert, oriented Head: atraumatic, normocephalic Eyes: EOMI, PERRL Respiratory: clear to auscultation, normal air movement Cardiovascular: other (tachycardic with regular rhythm) Gastrointestinal: non-tender, soft Extremities: normal pulses Results Result Diagram: 11/23/16 1005 11/23/16 1005 Results 24 hrs Laboratory Tests Test 11/23/16 10:05 White Blood Count 13.1 #H Red Blood Count 3.64 L Hemoglobin 9.9 L Hematocrit 32.5 L Mean Corpuscular Volume 89.3 Mean Corpuscular Hemoglobin 27.2 L Mean Corpuscular Hemoglobin Concent 30.5 L Red Cell Distribution Width 15.1 H Platelet Count 462 H Mean Platelet Volume 9.3 Neutrophils % 75.4 Lymphocytes % 14.5 L Monocytes % 7.5 Eosinophils % 1.2 Basophils % 0.5 Nucleated Red Blood Cells % 0.0 Neutrophils # 9.9 H Lymphocytes # 1.9 Monocytes # 1.0 H Eosinophils # 0.2 Basophils # 0.1 Nucleated Red Blood Cells # 0.0 Sodium Level 139 Potassium Level 4.0 Chloride Level 101 Carbon Dioxide Level 28 Anion Gap 14 Blood Urea Nitrogen 20 Creatinine 0.79 Glucose Level 126 Calcium Level 9.2 Medications Medications Current Medications Ondansetron HCl (Zofran Inj) 4 mg Q6H PRN IV NAUSEA AND/OR VOMITING; Start 07/22 at 17:00 Acetaminophen (Tylenol Tab) 650 mg Q6H PRN PO PAIN LEVEL 1-3 OR FEVER; Start at 17:00 Acetaminophen/ Hydrocodone Bitart ([place] (5/325)) 1 tab Q6H PRN PO MODERATE PAIN LEVEL 4-6; Start 11/15/16 at 17:00 Morphine Sulfate (morphine) 2 mg Q4H PRN IV SEVERE PAIN LEVEL 7-10; Start 11/15 at 17:00 Sodium Biphosphate/ Sodium Phosphate (Fleet Enema) 133 ml DAILY PRN [place] CONSTIPATION; Start 11/15/16 at 17:00 Hydralazine HCl (Apresoline) 10 mg Q6H PRN IV ELEVATED BLOOD PRESSURE; Start at 17:00 Clonidine (Catapres) 0.1 mg Q6H PRN PO ELEVATED BLOOD PRESSURE; Start 11/15/16 at 17:00 Nitroglycerin (Nitroglycerin (Sl Tab) 0.4 Mg) 1 tab Q5M PRN SL ANGINA; Start at 17:00 Dorzolamide/ Timolol (Cosopt) 1 drop BID LEFT EYE Last administered on 09:12; Admin Dose 1 DROP; Start 11/15/16 at 21:00 Latanoprost (Xalatan) 1 drop DAILY LEFT EYE Last administered on 11/23/16 09: 13; Admin Dose 1 DROP; Start 11/16/16 at 09:00 Levothyroxine Sodium (Synthroid) 75 mcg DAILY PO Last administered on 09:13; Admin Dose 75 MCG; Start 11/16/16 at 09:00 Salmeterol Xinafoate/ Fluticasone (Advair 250/50 Diskus) 1 inh BID INH Last administered on 11/23/16 09:12; Admin Dose 1 INH; Start 11/15/16 at 21:00 Sertraline HCl (Zoloft) 100 mg QHS PO Last administered on 11/22/16 21:26; Admin Dose 100 MG; Start 11/15/16 at 21:00 Senna/Docusate Sodium (Senokot-S) 2 tab HS PO Last administered on 11/17/16 21 :03; Admin Dose 2 TAB; Start 11/16/16 at 21:00 Lactobacillus Acidophilus/ Rhamnosus (Culturelle) 1 cap BID PO Last administered on 11/23/16 09:12; Admin Dose 1 CAP; Start 11/17/16 at 09:00 Magnesium Hydroxide (Milk Of Mag) 30 ml BID PO Last administered on 11/21/16 08:42; Admin Dose 30 ML; Start 11/17/16 at 14:30 Bisacodyl (Dulcolax Supp) 10 mg DAILY PRN [place] CONSTIPATION; Start 11/17/16 at 14 :30 Mineral Oil (Fleet Mineral Oil Enema) 133 ml DAILY PRN [place] CONSTIPATION; Start 11/17/16 at 14:30 Acetaminophen/ Hydrocodone Bitart ([place] (10/325)) 1 tab Q4H PRN PO PAIN; Start 11/17/16 at 14:30 Zolpidem Tartrate (Ambien) 5 mg HS PRN PO INSOMNIA Last administered on 21:26; Admin Dose 5 MG; Start 11/18/16 at 15:00 Mirtazapine (Remeron) 7.5 mg BID PO Last administered on 11/23/16 09:12; Admin Dose 7.5 MG; Start 11/19/16 at 21:00 Apixaban (Eliquis) 10 mg BID PO Last administered on 11/23/16 09:12; Admin Dose 10 MG; Start 11/20/16 at 09:00 Pantoprazole (Protonix Tab) 40 mg DAILY@06 PO Last administered on 11/23/16 06 :17; Admin Dose 40 MG; Start 11/20/16 at 06:00 Furosemide (Lasix) 20 mg DAILY IV Last administered on 11/22/16 09:52; Admin Dose 20 MG; Start 11/22/16 at 09:00 Fluconazole (Diflucan) 100 mg DAILY PO Last administered on 11/23/16 09:12; Admin Dose 100 MG; Start 11/23/16 at 09:00 Levofloxacin (Levaquin) 500 mg DAILY@06 PO Last administered on 11/23/16 06:16 ; Admin Dose 500 MG; Start 11/23/16 at 06:00 LISA ENGLISH MD Nov 23, 2016 12:34
--- NOTE | 2016-11-23 13:29 | PN ---
Date/Time of Note Date/Time of Note DATE: 11/23/16 TIME: 13:26 Assessment/Plan VTE Prophylaxis VTE Prophylaxis Intervention: other (Eliquis) Lines/Catheters [facility] Saline Lock Urinary Cath still in place: No Assessment/Plan Chief Complaint/Hosp Course Assessment/Plan 1. Bilateral Pneumonia with recurrent bilateral pleural effusions R>L * Status post thoracentesis on 10/04/2016. 2. Acute deep vein thrombosis of the left common femoral vein and popliteal vein. Continue anticoagulation. 3. Acute respiratory failure. Hypoxic. Most probably secondary to underlying healthcare-associated pneumonia. 4. Chronic obstructive pulmonary disease: s/p exacerbation 5. 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 Hx of abd abscesses Status post exploratory laparotomy and abdominal washout with a small bowel resection x2 on 09/20/2016. 7. Reported hx of Irritable bowel syndrome. Continue to monitor. 8. Chronic Depression. 9. Anemia, most probably anemia of chronic disease 10. Hypothyroidism: stable 11. Dyslipidemia with low HDL PLAN: * Continue current medical mgmt. Abx = oral Levaquin * 20 mg lasix daily * Per previous note, Dr Escudero had been notified about pt's thumb * Laxative PRN constipation, but pt had 3 loose bowel movements yesterday AM, so need to be careful not to over medicate especially given her recent bout of diarrhea. * Continue inhaled bronchodilators and wean off supplemental oxygen. * Continue all other home meds with adjustment as needed. * Continue in-house PT DISP: Pending Acute Rehab Eval. Pt and daughter do not want to go back to SNF and daughter stated that she wouldn't be accepted because of "infection" (VRE in stool) Problems: Subjective 24 Hr Interval Summary Free Text/Dictation Pt asking when she can get ARU eval, but denies pain. Exam/Review of Systems Vital Signs Vitals Vital Signs Date Time Temp Pulse Resp B/P Pulse Ox O2 Delivery O2 Flow Rate FiO2 11/23/16 08:06 97.6 94 20 153/72 94 11/22/16 20:00 Nasal Cannula 3.0 Intake and Output 11/22/16 11/22/16 11/23/16 15:00 23:00 07:00 Intake Total 960 ml 600 ml Balance 960 ml 600 ml Exam Constitutional: alert, oriented Head: atraumatic, normocephalic Eyes: EOMI, PERRL Respiratory: clear to auscultation, normal air movement Cardiovascular: other (tachycardic with regular rhythm) Gastrointestinal: non-tender, soft Extremities: normal pulses Results Result Diagram: 11/23/16 1005 11/23/16 1005 Results 24 hrs Laboratory Tests Test 11/23/16 10:05 White Blood Count 13.1 #H Red Blood Count 3.64 L Hemoglobin 9.9 L Hematocrit 32.5 L Mean Corpuscular Volume 89.3 Mean Corpuscular Hemoglobin 27.2 L Mean Corpuscular Hemoglobin Concent 30.5 L Red Cell Distribution Width 15.1 H Platelet Count 462 H Mean Platelet Volume 9.3 Neutrophils % 75.4 Lymphocytes % 14.5 L Monocytes % 7.5 Eosinophils % 1.2 Basophils % 0.5 Nucleated Red Blood Cells % 0.0 Neutrophils # 9.9 H Lymphocytes # 1.9 Monocytes # 1.0 H Eosinophils # 0.2 Basophils # 0.1 Nucleated Red Blood Cells # 0.0 Sodium Level 139 Potassium Level 4.0 Chloride Level 101 Carbon Dioxide Level 28 Anion Gap 14 Blood Urea Nitrogen 20 Creatinine 0.79 Glucose Level 126 Calcium Level 9.2 Medications Medications Current Medications Ondansetron HCl (Zofran Inj) 4 mg Q6H PRN IV NAUSEA AND/OR VOMITING; Start 07/22 at 17:00 Acetaminophen (Tylenol Tab) 650 mg Q6H PRN PO PAIN LEVEL 1-3 OR FEVER; Start at 17:00 Acetaminophen/ Hydrocodone Bitart ([place] (5/325)) 1 tab Q6H PRN PO MODERATE PAIN LEVEL 4-6; Start 11/15/16 at 17:00 Morphine Sulfate (morphine) 2 mg Q4H PRN IV SEVERE PAIN LEVEL 7-10; Start 11/15 at 17:00 Sodium Biphosphate/ Sodium Phosphate (Fleet Enema) 133 ml DAILY PRN [place] CONSTIPATION; Start 11/15/16 at 17:00 Hydralazine HCl (Apresoline) 10 mg Q6H PRN IV ELEVATED BLOOD PRESSURE; Start at 17:00 Clonidine (Catapres) 0.1 mg Q6H PRN PO ELEVATED BLOOD PRESSURE; Start 11/15/16 at 17:00 Nitroglycerin (Nitroglycerin (Sl Tab) 0.4 Mg) 1 tab Q5M PRN SL ANGINA; Start at 17:00 Dorzolamide/ Timolol (Cosopt) 1 drop BID LEFT EYE Last administered on 09:12; Admin Dose 1 DROP; Start 11/15/16 at 21:00 Latanoprost (Xalatan) 1 drop DAILY LEFT EYE Last administered on 11/23/16 09: 13; Admin Dose 1 DROP; Start 11/16/16 at 09:00 Levothyroxine Sodium (Synthroid) 75 mcg DAILY PO Last administered on 09:13; Admin Dose 75 MCG; Start 11/16/16 at 09:00 Salmeterol Xinafoate/ Fluticasone (Advair 250/50 Diskus) 1 inh BID INH Last administered on 11/23/16 09:12; Admin Dose 1 INH; Start 11/15/16 at 21:00 Sertraline HCl (Zoloft) 100 mg QHS PO Last administered on 11/22/16 21:26; Admin Dose 100 MG; Start 11/15/16 at 21:00 Senna/Docusate Sodium (Senokot-S) 2 tab HS PO Last administered on 11/17/16 21 :03; Admin Dose 2 TAB; Start 11/16/16 at 21:00 Lactobacillus Acidophilus/ Rhamnosus (Culturelle) 1 cap BID PO Last administered on 11/23/16 09:12; Admin Dose 1 CAP; Start 11/17/16 at 09:00 Magnesium Hydroxide (Milk Of Mag) 30 ml BID PO Last administered on 11/21/16 08:42; Admin Dose 30 ML; Start 11/17/16 at 14:30 Bisacodyl (Dulcolax Supp) 10 mg DAILY PRN [place] CONSTIPATION; Start 11/17/16 at 14 :30 Mineral Oil (Fleet Mineral Oil Enema) 133 ml DAILY PRN [place] CONSTIPATION; Start 11/17/16 at 14:30 Acetaminophen/ Hydrocodone Bitart ([place] (10/325)) 1 tab Q4H PRN PO PAIN; Start 11/17/16 at 14:30 Zolpidem Tartrate (Ambien) 5 mg HS PRN PO INSOMNIA Last administered on 21:26; Admin Dose 5 MG; Start 11/18/16 at 15:00 Mirtazapine (Remeron) 7.5 mg BID PO Last administered on 11/23/16 09:12; Admin Dose 7.5 MG; Start 11/19/16 at 21:00 Apixaban (Eliquis) 10 mg BID PO Last administered on 11/23/16 09:12; Admin Dose 10 MG; Start 11/20/16 at 09:00 Pantoprazole (Protonix Tab) 40 mg DAILY@06 PO Last administered on 11/23/16 06 :17; Admin Dose 40 MG; Start 11/20/16 at 06:00 Furosemide (Lasix) 20 mg DAILY IV Last administered on 11/22/16 09:52; Admin Dose 20 MG; Start 11/22/16 at 09:00 Fluconazole (Diflucan) 100 mg DAILY PO Last administered on 11/23/16 09:12; Admin Dose 100 MG; Start 11/23/16 at 09:00 Levofloxacin (Levaquin) 500 mg DAILY@06 PO Last administered on 11/23/16 06:16 ; Admin Dose 500 MG; Start 11/23/16 at 06:00 LUIS DANIEL MICHEL Nov 23, 2016 13:29
--- NOTE | 2016-11-23 15:03 | PN ---
DATE: 11/15/2016 SUBJECTIVE: The patient is alert, feels good, looks comfortable, no fevers. Vital signs stable ANTIMICROBIALS: 1. Levaquin. 2. Fluconazole. LABORATORY DATA: WBC 13.1, no shift, no bands. BUN 20, creatinine 0.79. PHYSICAL EXAMINATION: GENERAL: Fragile, well-developed, elderly woman who is alert, in no distress. HEENT: Head atraumatic, normocephalic. Sclerae anicteric. Buccal mucosa pink. NECK: Supple. CHEST: Rise symmetrical. Breath sounds clear. HEART: S1, S2. ABDOMEN: Soft, bowel sounds present. EXTREMITIES: Without cyanosis or edema. ASSESSMENT: 1. Resolving pneumonia. 2. Resolving sepsis. 3. Left lower extremity deep venous thrombosis. 4. Status post respiratory failure. 5. History of small bowel resection. PLAN: The patient remains stable, completing antibiotics. Pending discharge planning. Dictated By: YASMANY BECERRA ROLL CHANGER for THOMAS WEBSTER/VU Conf#: [id number] DID#: [id number]
--- NOTE | 2016-11-23 16:05 | PN ---
DATE: 11/23/2016 The patient is continuously having triggering of the left thumb. The flexor tendon issac of the fl exor tendon to the left thumb over the volar aspect of the MP joint of the left thumb was injected w ith the Celestone and Marcaine. The patient tolerated the entire procedure very well without any un usual problems. Further followup will be on p.r.n. basis. Dictated By: ROOSEVELT HARVEY/VU Conf#: [id number] DID#: [id number]
[2016-11-23 19:31] VITALS: BP 126/63; RESP 16
[2016-11-23] MEDS: SENNA/DOCUSATE NA (8.6MG/50MG) TAB PO SCH (21:00)
[2016-11-23] MEDS: SERTRALINE 100 MG TAB PO SCH (21:17)
[2016-11-24] MEDS: ZOLPIDEM 5 MG TAB PO PRN ×2 (00:26→20:34)
[2016-11-24] MEDS: PANTOPRAZOLE (EC) 40 MG TAB PO SCH (05:48)
[2016-11-24] MEDS: LEVOFLOXACIN 500 MG TAB PO SCH (05:48)
--- NOTE | 2016-11-24 08:15 | PN ---
Date/Time of Note Date/Time of Note DATE: 11/24/16 TIME: 08:12 Assessment/Plan VTE Prophylaxis VTE Prophylaxis Intervention: other (Eliquis) Lines/Catheters IV [facility] Saline Lock Urinary Cath still in place: No Assessment/Plan Chief Complaint/Hosp Course Assessment/Plan 1. Bilateral Pneumonia with recurrent bilateral pleural effusions R>L - slowly improving * Status post thoracentesis on 10/04/2016 2. Acute deep vein thrombosis of the left common femoral vein and popliteal vein. Continue anticoagulation. 3. Acute respiratory failure. Hypoxic. Most probably secondary to underlying healthcare-associated pneumonia. 4. Chronic obstructive pulmonary disease: s/p exacerbation 5. 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 Hx of abd abscesses Status post exploratory laparotomy and abdominal washout with a small bowel resection x2 on 09/20/2016. 7. Reported hx of Irritable bowel syndrome. Continue to monitor. 8. Chronic Depression. 9. Anemia, most probably anemia of chronic disease 10. Hypothyroidism: stable 11. Dyslipidemia with low HDL PLAN: * Continue current medical mgmt. Abx = oral Levaquin * 20 mg lasix daily * Per previous note, Dr Escudero had been notified about pt's thumb - s/p injection with Celestone and Marcaine - monitor * Laxative PRN constipation, but pt had 3 loose bowel movements 2 days ago in AM , so need to be careful not to over medicate especially given her recent bout of diarrhea. * Continue inhaled bronchodilators and wean off supplemental oxygen. * Continue all other home meds with adjustment as needed. * Continue in-house PT DISP: Pending Acute Rehab Eval - f/u final rec's on this. Pt and daughter do not want to go back to SNF and daughter stated that she wouldn't be accepted because of "infection" (VRE in stool) Problems: Subjective 24 Hr Interval Summary Free Text/Dictation Pt had no loose stools overnight, seen by PT and currently being evaluated by ARU. Exam/Review of Systems Vital Signs Vitals Vital Signs Date Time Temp Pulse Resp B/P Pulse Ox O2 Delivery O2 Flow Rate FiO2 11/23/16 20:00 Nasal Cannula 2.0 11/23/16 19:31 97.3 101 16 126/63 95 Intake and Output 11/23/16 11/23/16 11/24/16 15:00 23:00 07:00 Intake Total 960 ml 240 ml Balance 960 ml 240 ml Exam Constitutional: alert, oriented Head: atraumatic, normocephalic Eyes: EOMI, PERRL Respiratory: clear to auscultation, normal air movement Cardiovascular: other (tachycardic with regular rhythm) Gastrointestinal: non-tender, soft Extremities: normal pulses Results Result Diagram: 11/23/16 1005 11/23/16 1005 Results 24 hrs Laboratory Tests Test 11/23/16 10:05 White Blood Count 13.1 #H Red Blood Count 3.64 L Hemoglobin 9.9 L Hematocrit 32.5 L Mean Corpuscular Volume 89.3 Mean Corpuscular Hemoglobin 27.2 L Mean Corpuscular Hemoglobin Concent 30.5 L Red Cell Distribution Width 15.1 H Platelet Count 462 H Mean Platelet Volume 9.3 Neutrophils % 75.4 Lymphocytes % 14.5 L Monocytes % 7.5 Eosinophils % 1.2 Basophils % 0.5 Nucleated Red Blood Cells % 0.0 Neutrophils # 9.9 H Lymphocytes # 1.9 Monocytes # 1.0 H Eosinophils # 0.2 Basophils # 0.1 Nucleated Red Blood Cells # 0.0 Sodium Level 139 Potassium Level 4.0 Chloride Level 101 Carbon Dioxide Level 28 Anion Gap 14 Blood Urea Nitrogen 20 Creatinine 0.79 Glucose Level 126 Calcium Level 9.2 Medications Medications Current Medications Ondansetron HCl (Zofran Inj) 4 mg Q6H PRN IV NAUSEA AND/OR VOMITING; Start 07/22 at 17:00 Acetaminophen (Tylenol Tab) 650 mg Q6H PRN PO PAIN LEVEL 1-3 OR FEVER; Start at 17:00 Acetaminophen/ Hydrocodone Bitart ([place] (5/325)) 1 tab Q6H PRN PO MODERATE PAIN LEVEL 4-6; Start 11/15/16 at 17:00 Morphine Sulfate (morphine) 2 mg Q4H PRN IV SEVERE PAIN LEVEL 7-10; Start 11/15 at 17:00 Sodium Biphosphate/ Sodium Phosphate (Fleet Enema) 133 ml DAILY PRN [place] CONSTIPATION; Start 11/15/16 at 17:00 Hydralazine HCl (Apresoline) 10 mg Q6H PRN IV ELEVATED BLOOD PRESSURE; Start at 17:00 Clonidine (Catapres) 0.1 mg Q6H PRN PO ELEVATED BLOOD PRESSURE; Start 11/15/16 at 17:00 Nitroglycerin (Nitroglycerin (Sl Tab) 0.4 Mg) 1 tab Q5M PRN SL ANGINA; Start at 17:00 Dorzolamide/ Timolol (Cosopt) 1 drop BID LEFT EYE Last administered on 21:19; Admin Dose 1 DROP; Start 11/15/16 at 21:00 Latanoprost (Xalatan) 1 drop DAILY LEFT EYE Last administered on 11/23/16 09: 13; Admin Dose 1 DROP; Start 11/16/16 at 09:00 Levothyroxine Sodium (Synthroid) 75 mcg DAILY PO Last administered on 09:13; Admin Dose 75 MCG; Start 11/16/16 at 09:00 Salmeterol Xinafoate/ Fluticasone (Advair 250/50 Diskus) 1 inh BID INH Last administered on 11/23/16 21:19; Admin Dose 1 INH; Start 11/15/16 at 21:00 Sertraline HCl (Zoloft) 100 mg QHS PO Last administered on 11/23/16 21:17; Admin Dose 100 MG; Start 11/15/16 at 21:00 Senna/Docusate Sodium (Senokot-S) 2 tab HS PO Last administered on 11/17/16 21 :03; Admin Dose 2 TAB; Start 11/16/16 at 21:00 Lactobacillus Acidophilus/ Rhamnosus (Culturelle) 1 cap BID PO Last administered on 11/23/16 21:17; Admin Dose 1 CAP; Start 11/17/16 at 09:00 Magnesium Hydroxide (Milk Of Mag) 30 ml BID PO Last administered on 11/21/16 08:42; Admin Dose 30 ML; Start 11/17/16 at 14:30 Bisacodyl (Dulcolax Supp) 10 mg DAILY PRN [place] CONSTIPATION; Start 11/17/16 at 14 :30 Mineral Oil (Fleet Mineral Oil Enema) 133 ml DAILY PRN [place] CONSTIPATION; Start 11/17/16 at 14:30 Acetaminophen/ Hydrocodone Bitart ([place] (10/325)) 1 tab Q4H PRN PO PAIN; Start 11/17/16 at 14:30 Zolpidem Tartrate (Ambien) 5 mg HS PRN PO INSOMNIA Last administered on 00:26; Admin Dose 5 MG; Start 11/18/16 at 15:00 Mirtazapine (Remeron) 7.5 mg BID PO Last administered on 11/23/16 21:17; Admin Dose 7.5 MG; Start 11/19/16 at 21:00 Apixaban (Eliquis) 10 mg BID PO Last administered on 11/23/16 21:18; Admin Dose 10 MG; Start 11/20/16 at 09:00 Pantoprazole (Protonix Tab) 40 mg DAILY@06 PO Last administered on 11/24/16 05 :48; Admin Dose 40 MG; Start 11/20/16 at 06:00 Furosemide (Lasix) 20 mg DAILY IV Last administered on 11/22/16 09:52; Admin Dose 20 MG; Start 11/22/16 at 09:00 Fluconazole (Diflucan) 100 mg DAILY PO Last administered on 11/23/16 09:12; Admin Dose 100 MG; Start 11/23/16 at 09:00 Levofloxacin (Levaquin) 500 mg DAILY@06 PO Last administered on 11/24/16 05:48 ; Admin Dose 500 MG; Start 11/23/16 at 06:00 LUIS DANIEL MICHEL Nov 24, 2016 08:15
[2016-11-24 08:16] VITALS: BP 142/78; RESP 18
[2016-11-24] MEDS: MAGNESIUM HYDROXIDE 30ML CUP PO SCH ×2 (08:48→20:35)
[2016-11-24] MEDS: FUROSEMIDE 20 MG TAB PO SCH (08:52)
[2016-11-24] MEDS: SALMETEROL/FLUTICASONE 250/50 INHA INH SCH ×2 (08:52→20:34)
[2016-11-24] MEDS: LACTOBACILLUS RHAMNOSUS CAP PO SCH ×2 (08:53→20:34)
[2016-11-24] MEDS: MIRTAZAPINE 15 MG TAB PO SCH ×2 (08:53→20:34)
[2016-11-24] MEDS: FLUCONAZOLE 100 MG TAB PO SCH (08:53)
[2016-11-24] MEDS: APIXABAN 5 MG TABLET PO SCH ×2 (08:53→20:34)
[2016-11-24] MEDS: LATANOPROST 0.005% 2.5 ML OPH LEFT EYE SCH (08:53)
[2016-11-24] MEDS: LEVOTHYROXINE 75 MCG TAB PO SCH (08:53)
[2016-11-24] MEDS: DORZOLAMIDE/TIMOLOL 10 ML OPH LEFT EYE SCH ×2 (08:53→20:34)
--- NOTE | 2016-11-24 12:41 | CONS ---
Date/Time of Note Date/Time of Note DATE: 11/24/16 TIME: 12:39 Consult Date/Type/Reason Admit Date/Time Nov 15, 2016 at 16:43 Initial Consult Date Type of Consultation: Pulmonary Subjective Clinically improving sitting up in chair and looks comfortable at rest Objective Vital Signs Date Time Temp Pulse Resp B/P Pulse Ox O2 Delivery O2 Flow Rate FiO2 11/24/16 08:16 97.5 97 18 142/78 96 11/23/16 20:00 Nasal Cannula 2.0 Intake and Output 11/23/16 11/23/16 11/24/16 15:00 23:00 07:00 Intake Total 960 ml 240 ml Balance 960 ml 240 ml Exam GENERAL: Elderly lady comfortable at rest sitting up in chair VITAL SIGNS: per chart NECK: Supple. No JVD or lymphadenopathy. CARDIAC EXAM: S1, S2. No added sounds or murmurs. CHEST: clear bilaterally, No added sounds, rales or wheezes ABDOMEN: Soft, nontender. No guarding or rebound. EXTREMITIES: No cyanosis, clubbing or edema. NEUROLOGIC: Generalized weakness. No focal deficits. Results/Medications Result Diagram: 11/23/16 1005 11/23/16 1005 Medications Current Medications Ondansetron HCl (Zofran Inj) 4 mg Q6H PRN IV NAUSEA AND/OR VOMITING; Start 07/22 at 17:00 Acetaminophen (Tylenol Tab) 650 mg Q6H PRN PO PAIN LEVEL 1-3 OR FEVER; Start at 17:00 Acetaminophen/ Hydrocodone Bitart ([place] (5/325)) 1 tab Q6H PRN PO MODERATE PAIN LEVEL 4-6; Start 11/15/16 at 17:00 Morphine Sulfate (morphine) 2 mg Q4H PRN IV SEVERE PAIN LEVEL 7-10; Start 11/15 at 17:00 Sodium Biphosphate/ Sodium Phosphate (Fleet Enema) 133 ml DAILY PRN [place] CONSTIPATION; Start 11/15/16 at 17:00 Hydralazine HCl (Apresoline) 10 mg Q6H PRN IV ELEVATED BLOOD PRESSURE; Start at 17:00 Clonidine (Catapres) 0.1 mg Q6H PRN PO ELEVATED BLOOD PRESSURE; Start 11/15/16 at 17:00 Nitroglycerin (Nitroglycerin (Sl Tab) 0.4 Mg) 1 tab Q5M PRN SL ANGINA; Start at 17:00 Dorzolamide/ Timolol (Cosopt) 1 drop BID LEFT EYE Last administered on 08:53; Admin Dose 1 DROP; Start 11/15/16 at 21:00 Latanoprost (Xalatan) 1 drop DAILY LEFT EYE Last administered on 11/24/16 08: 53; Admin Dose 1 DROP; Start 11/16/16 at 09:00 Levothyroxine Sodium (Synthroid) 75 mcg DAILY PO Last administered on 08:53; Admin Dose 75 MCG; Start 11/16/16 at 09:00 Salmeterol Xinafoate/ Fluticasone (Advair 250/50 Diskus) 1 inh BID INH Last administered on 11/24/16 08:52; Admin Dose 1 INH; Start 11/15/16 at 21:00 Sertraline HCl (Zoloft) 100 mg QHS PO Last administered on 11/23/16 21:17; Admin Dose 100 MG; Start 11/15/16 at 21:00 Senna/Docusate Sodium (Senokot-S) 2 tab HS PO Last administered on 11/17/16 21 :03; Admin Dose 2 TAB; Start 11/16/16 at 21:00 Lactobacillus Acidophilus/ Rhamnosus (Culturelle) 1 cap BID PO Last administered on 11/24/16 08:53; Admin Dose 1 CAP; Start 11/17/16 at 09:00 Magnesium Hydroxide (Milk Of Mag) 30 ml BID PO Last administered on 11/21/16 08:42; Admin Dose 30 ML; Start 11/17/16 at 14:30 Bisacodyl (Dulcolax Supp) 10 mg DAILY PRN [place] CONSTIPATION; Start 11/17/16 at 14 :30 Mineral Oil (Fleet Mineral Oil Enema) 133 ml DAILY PRN [place] CONSTIPATION; Start 11/17/16 at 14:30 Acetaminophen/ Hydrocodone Bitart ([place] (10/325)) 1 tab Q4H PRN PO PAIN; Start 11/17/16 at 14:30 Zolpidem Tartrate (Ambien) 5 mg HS PRN PO INSOMNIA Last administered on 00:26; Admin Dose 5 MG; Start 11/18/16 at 15:00 Mirtazapine (Remeron) 7.5 mg BID PO Last administered on 11/24/16 08:53; Admin Dose 7.5 MG; Start 11/19/16 at 21:00 Apixaban (Eliquis) 10 mg BID PO Last administered on 11/24/16 08:53; Admin Dose 10 MG; Start 11/20/16 at 09:00 Pantoprazole (Protonix Tab) 40 mg DAILY@06 PO Last administered on 11/24/16 05 :48; Admin Dose 40 MG; Start 11/20/16 at 06:00 Fluconazole (Diflucan) 100 mg DAILY PO Last administered on 11/24/16 08:53; Admin Dose 100 MG; Start 11/23/16 at 09:00 Levofloxacin (Levaquin) 500 mg DAILY@06 PO Last administered on 11/24/16 05:48 ; Admin Dose 500 MG; Start 11/23/16 at 06:00 Furosemide (Lasix) 20 mg DAILY PO Last administered on 11/24/16 08:52; Admin Dose 20 MG; Start 11/24/16 at 09:00 Assessment/Plan Chief Complaint/Hosp Course Assessment 1. Community acquired pneumonia 2. Mild congestive cardiac failure 3. Resolving encephalopathy Plan 1. Complete antibiotics 2. Gentle diuresis 3. Supplemental O2 as needed 4. Encourage activities and ambulation Agree with discharge planning Problems: DUDLEY COWAN MD, [facility] Nov 24, 2016 12:40
--- NOTE | 2016-11-24 15:25 | CONS ---
Date/Time of Note Date/Time of Note DATE: 11/24/16 TIME: 15:24 Assessment/Plan Assessment/Plan Chief Complaint/Hosp Course SUBJECTIVE: Alert, feels good, episode of diarrhea in am MICROBIOLOGY: Blood cultures have been negative. PHYSICAL EXAMINATION: GENERAL: This is a fragile, elderly woman who is in no distress. HEENT: Head atraumatic, normocephalic. Sclerae anicteric. Buccal mucosa dry. NECK: Supple. CHEST: Rise symmetrical. Breath sounds with bilateral scattered crackles and rhonchi. HEART: S1, S2. ABDOMEN: Soft EXTREMITIES: Without cyanosis. ASSESSMENT: 1. Resolving sepsis with fever and leukocytosis on admission. 2. S/p pneumonia, possibly aspiration. 3. S/p UTI. 4. 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 5. Urinary retention==>no acute issues PLAN: Remains stable, will dc abx, send stool for C dif DW staff Problems: Consultation Date/Type/Reason Admit Date/Time Nov 15, 2016 at 16:43 Type of Consultation: ID Exam/Review of Systems Vital Signs Vitals Vital Signs Date Time Temp Pulse Resp B/P Pulse Ox O2 Delivery O2 Flow Rate FiO2 11/24/16 08:16 97.5 97 18 142/78 96 11/23/16 20:00 Nasal Cannula 2.0 Intake and Output 11/23/16 11/23/16 11/24/16 15:00 23:00 07:00 Intake Total 960 ml 240 ml Balance 960 ml 240 ml Results Result Diagram: 11/23/16 1005 11/23/16 1005 Medications Medications Current Medications Ondansetron HCl (Zofran Inj) 4 mg Q6H PRN IV NAUSEA AND/OR VOMITING; Start 07/22 at 17:00 Acetaminophen (Tylenol Tab) 650 mg Q6H PRN PO PAIN LEVEL 1-3 OR FEVER; Start at 17:00 Acetaminophen/ Hydrocodone Bitart ([place] (5/325)) 1 tab Q6H PRN PO MODERATE PAIN LEVEL 4-6; Start 11/15/16 at 17:00 Morphine Sulfate (morphine) 2 mg Q4H PRN IV SEVERE PAIN LEVEL 7-10; Start 11/15 at 17:00 Sodium Biphosphate/ Sodium Phosphate (Fleet Enema) 133 ml DAILY PRN [place] CONSTIPATION; Start 11/15/16 at 17:00 Hydralazine HCl (Apresoline) 10 mg Q6H PRN IV ELEVATED BLOOD PRESSURE; Start at 17:00 Clonidine (Catapres) 0.1 mg Q6H PRN PO ELEVATED BLOOD PRESSURE; Start 11/15/16 at 17:00 Nitroglycerin (Nitroglycerin (Sl Tab) 0.4 Mg) 1 tab Q5M PRN SL ANGINA; Start at 17:00 Dorzolamide/ Timolol (Cosopt) 1 drop BID LEFT EYE Last administered on 08:53; Admin Dose 1 DROP; Start 11/15/16 at 21:00 Latanoprost (Xalatan) 1 drop DAILY LEFT EYE Last administered on 11/24/16 08: 53; Admin Dose 1 DROP; Start 11/16/16 at 09:00 Levothyroxine Sodium (Synthroid) 75 mcg DAILY PO Last administered on 08:53; Admin Dose 75 MCG; Start 11/16/16 at 09:00 Salmeterol Xinafoate/ Fluticasone (Advair 250/50 Diskus) 1 inh BID INH Last administered on 11/24/16 08:52; Admin Dose 1 INH; Start 11/15/16 at 21:00 Sertraline HCl (Zoloft) 100 mg QHS PO Last administered on 11/23/16 21:17; Admin Dose 100 MG; Start 11/15/16 at 21:00 Senna/Docusate Sodium (Senokot-S) 2 tab HS PO Last administered on 11/17/16 21 :03; Admin Dose 2 TAB; Start 11/16/16 at 21:00 Lactobacillus Acidophilus/ Rhamnosus (Culturelle) 1 cap BID PO Last administered on 11/24/16 08:53; Admin Dose 1 CAP; Start 11/17/16 at 09:00 Magnesium Hydroxide (Milk Of Mag) 30 ml BID PO Last administered on 11/21/16 08:42; Admin Dose 30 ML; Start 11/17/16 at 14:30 Bisacodyl (Dulcolax Supp) 10 mg DAILY PRN [place] CONSTIPATION; Start 11/17/16 at 14 :30 Mineral Oil (Fleet Mineral Oil Enema) 133 ml DAILY PRN [place] CONSTIPATION; Start 11/17/16 at 14:30 Acetaminophen/ Hydrocodone Bitart ([place] (10/325)) 1 tab Q4H PRN PO PAIN; Start 11/17/16 at 14:30 Zolpidem Tartrate (Ambien) 5 mg HS PRN PO INSOMNIA Last administered on 00:26; Admin Dose 5 MG; Start 11/18/16 at 15:00 Mirtazapine (Remeron) 7.5 mg BID PO Last administered on 11/24/16 08:53; Admin Dose 7.5 MG; Start 11/19/16 at 21:00 Apixaban (Eliquis) 10 mg BID PO Last administered on 11/24/16 08:53; Admin Dose 10 MG; Start 11/20/16 at 09:00 Pantoprazole (Protonix Tab) 40 mg DAILY@06 PO Last administered on 11/24/16 05 :48; Admin Dose 40 MG; Start 11/20/16 at 06:00 Fluconazole (Diflucan) 100 mg DAILY PO Last administered on 11/24/16 08:53; Admin Dose 100 MG; Start 11/23/16 at 09:00 Levofloxacin (Levaquin) 500 mg DAILY@06 PO Last administered on 11/24/16 05:48 ; Admin Dose 500 MG; Start 11/23/16 at 06:00 Furosemide (Lasix) 20 mg DAILY PO Last administered on 11/24/16 08:52; Admin Dose 20 MG; Start 11/24/16 at 09:00 YASMANY BECERRA NP Nov 24, 2016 15:25
[2016-11-24] MEDS: SERTRALINE 100 MG TAB PO SCH (20:34)
[2016-11-24] MEDS: SENNA/DOCUSATE NA (8.6MG/50MG) TAB PO SCH (20:35)
[2016-11-24 21:51] VITALS: BP 122/64; RESP 16
[2016-11-25] MEDS: PANTOPRAZOLE (EC) 40 MG TAB PO SCH (06:13)
[2016-11-25 08:03] VITALS: BP 138/76; RESP 18
[2016-11-25] MEDS: MAGNESIUM HYDROXIDE 30ML CUP PO SCH ×2 (09:00→21:00)
[2016-11-25] MEDS: SALMETEROL/FLUTICASONE 250/50 INHA INH SCH ×2 (10:11→21:27)
[2016-11-25] MEDS: DORZOLAMIDE/TIMOLOL 10 ML OPH LEFT EYE SCH ×2 (10:12→21:27)
[2016-11-25] MEDS: MIRTAZAPINE 15 MG TAB PO SCH ×2 (10:12→21:28)
[2016-11-25] MEDS: LACTOBACILLUS RHAMNOSUS CAP PO SCH ×2 (10:13→21:29)
[2016-11-25] MEDS: LEVOTHYROXINE 75 MCG TAB PO SCH (10:13)
[2016-11-25] MEDS: APIXABAN 5 MG TABLET PO SCH ×2 (10:14→21:28)
[2016-11-25] MEDS: FUROSEMIDE 20 MG TAB PO SCH (10:14)
[2016-11-25] MEDS: LATANOPROST 0.005% 2.5 ML OPH LEFT EYE SCH (10:22)
--- NOTE | 2016-11-25 12:33 | PN ---
Date/Time of Note Date/Time of Note DATE: 11/25/16 TIME: 12:32 Assessment/Plan VTE Prophylaxis VTE Prophylaxis Intervention: LMWH Lines/Catheters IV [facility]ter Type (from [facility] Saline Lock Urinary Cath still in place: No Assessment/Plan Problems: (1) Acquired autoimmune hypothyroidism Status: Chronic Comment: On replacement therapy (2) COPD (chronic obstructive pulmonary disease) Status: Chronic Comment: She is on appropriate treatment for this. 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 I will give her some Imodium but we will check a stool for C. difficile to be on the cautious side Subjective 24 Hr Interval Summary Free Text/Dictation Patient reports that she is somewhat disappointed about not having had her discharge planning worked out yet for rehabilitation Constitutional: no complaints (No fever chills or sweats) Respiratory: no complaints Cardiovascular: no complaints Gastrointestinal: diarrhea (New diarrhea) Exam/Review of Systems Vital Signs Vitals Vital Signs Date Time Temp Pulse Resp B/P Pulse Ox O2 Delivery O2 Flow Rate FiO2 11/25/16 08:03 97.6 93 18 138/76 11/24/16 21:51 96 11/24/16 20:00 Nasal Cannula 2.0 Intake and Output 11/24/16 11/24/16 11/25/16 15:00 23:00 07:00 Intake Total 1600 ml 240 ml Balance 1600 ml 240 ml Exam Constitutional: alert, oriented Respiratory: clear to auscultation, normal air movement Cardiovascular: nl pulses, regular rate and rhythm Gastrointestinal: nl liver, spleen, non-tender, soft Results Result Diagram: 11/23/16 1005 11/23/16 1005 Medications Medications Current Medications Ondansetron HCl (Zofran Inj) 4 mg Q6H PRN IV NAUSEA AND/OR VOMITING; Start 07/22 at 17:00 Acetaminophen (Tylenol Tab) 650 mg Q6H PRN PO PAIN LEVEL 1-3 OR FEVER; Start at 17:00 Acetaminophen/ Hydrocodone Bitart ([place] (5/325)) 1 tab Q6H PRN PO MODERATE PAIN LEVEL 4-6; Start 11/15/16 at 17:00 Morphine Sulfate (morphine) 2 mg Q4H PRN IV SEVERE PAIN LEVEL 7-10; Start 11/15 at 17:00 Sodium Biphosphate/ Sodium Phosphate (Fleet Enema) 133 ml DAILY PRN [place] CONSTIPATION; Start 11/15/16 at 17:00 Hydralazine HCl (Apresoline) 10 mg Q6H PRN IV ELEVATED BLOOD PRESSURE; Start at 17:00 Clonidine (Catapres) 0.1 mg Q6H PRN PO ELEVATED BLOOD PRESSURE; Start 11/15/16 at 17:00 Nitroglycerin (Nitroglycerin (Sl Tab) 0.4 Mg) 1 tab Q5M PRN SL ANGINA; Start at 17:00 Dorzolamide/ Timolol (Cosopt) 1 drop BID LEFT EYE Last administered on 10:12; Admin Dose 1 DROP; Start 11/15/16 at 21:00 Latanoprost (Xalatan) 1 drop DAILY LEFT EYE Last administered on 11/25/16 10: 22; Admin Dose 1 DROP; Start 11/16/16 at 09:00 Levothyroxine Sodium (Synthroid) 75 mcg DAILY PO Last administered on 10:13; Admin Dose 75 MCG; Start 11/16/16 at 09:00 Salmeterol Xinafoate/ Fluticasone (Advair 250/50 Diskus) 1 inh BID INH Last administered on 11/25/16 10:11; Admin Dose 1 INH; Start 11/15/16 at 21:00 Sertraline HCl (Zoloft) 100 mg QHS PO Last administered on 11/24/16 20:34; Admin Dose 100 MG; Start 11/15/16 at 21:00 Senna/Docusate Sodium (Senokot-S) 2 tab HS PO Last administered on 11/17/16 21 :03; Admin Dose 2 TAB; Start 11/16/16 at 21:00 Lactobacillus Acidophilus/ Rhamnosus (Culturelle) 1 cap BID PO Last administered on 11/25/16 10:13; Admin Dose 1 CAP; Start 11/17/16 at 09:00 Magnesium Hydroxide (Milk Of Mag) 30 ml BID PO Last administered on 11/21/16 08:42; Admin Dose 30 ML; Start 11/17/16 at 14:30 Bisacodyl (Dulcolax Supp) 10 mg DAILY PRN [place] CONSTIPATION; Start 11/17/16 at 14 :30 Mineral Oil (Fleet Mineral Oil Enema) 133 ml DAILY PRN [place] CONSTIPATION; Start 11/17/16 at 14:30 Acetaminophen/ Hydrocodone Bitart ([place] (10/325)) 1 tab Q4H PRN PO PAIN; Start 11/17/16 at 14:30 Zolpidem Tartrate (Ambien) 5 mg HS PRN PO INSOMNIA Last administered on 20:34; Admin Dose 5 MG; Start 11/18/16 at 15:00 Mirtazapine (Remeron) 7.5 mg BID PO Last administered on 11/25/16 10:12; Admin Dose 7.5 MG; Start 11/19/16 at 21:00 Apixaban (Eliquis) 10 mg BID PO Last administered on 11/25/16 10:14; Admin Dose 10 MG; Start 11/20/16 at 09:00 Pantoprazole (Protonix Tab) 40 mg DAILY@06 PO Last administered on 11/25/16 06 :13; Admin Dose 40 MG; Start 11/20/16 at 06:00 Furosemide (Lasix) 20 mg DAILY PO Last administered on 11/25/16 10:14; Admin Dose 20 MG; Start 11/24/16 at 09:00 LIGIA WEAVER MD Nov 25, 2016 12:33
[2016-11-25] MEDS: LOPERAMIDE 2 MG CAP PO PRN (13:19)
--- NOTE | 2016-11-25 15:14 | CONS ---
Date/Time of Note Date/Time of Note DATE: 11/25/16 TIME: 15:12 Consult Date/Type/Reason Admit Date/Time Nov 15, 2016 at 16:43 Initial Consult Date Type of Consultation: Pulm/CCM Subjective No events. No dyspnea. Objective Vital Signs Date Time Temp Pulse Resp B/P Pulse Ox O2 Delivery O2 Flow Rate FiO2 11/25/16 08:03 97.6 93 18 138/76 11/24/16 21:51 96 11/24/16 20:00 Nasal Cannula 2.0 Intake and Output 11/24/16 11/24/16 11/25/16 15:00 23:00 07:00 Intake Total 1600 ml 240 ml Balance 1600 ml 240 ml Exam CARDIAC EXAM: S1, S2. No added sounds or murmurs. CHEST: clear bilaterally, No added sounds, rales or wheezes ABDOMEN: Soft, nontender. No guarding or rebound. EXTREMITIES: No cyanosis, clubbing or edema. Results/Medications Result Diagram: 11/23/16 1005 11/23/16 1005 Medications Current Medications Ondansetron HCl (Zofran Inj) 4 mg Q6H PRN IV NAUSEA AND/OR VOMITING; Start 07/22 at 17:00 Acetaminophen (Tylenol Tab) 650 mg Q6H PRN PO PAIN LEVEL 1-3 OR FEVER; Start at 17:00 Acetaminophen/ Hydrocodone Bitart ([place] (5/325)) 1 tab Q6H PRN PO MODERATE PAIN LEVEL 4-6; Start 11/15/16 at 17:00 Morphine Sulfate (morphine) 2 mg Q4H PRN IV SEVERE PAIN LEVEL 7-10; Start 11/15 at 17:00 Sodium Biphosphate/ Sodium Phosphate (Fleet Enema) 133 ml DAILY PRN [place] CONSTIPATION; Start 11/15/16 at 17:00 Hydralazine HCl (Apresoline) 10 mg Q6H PRN IV ELEVATED BLOOD PRESSURE; Start at 17:00 Clonidine (Catapres) 0.1 mg Q6H PRN PO ELEVATED BLOOD PRESSURE; Start 11/15/16 at 17:00 Nitroglycerin (Nitroglycerin (Sl Tab) 0.4 Mg) 1 tab Q5M PRN SL ANGINA; Start at 17:00 Dorzolamide/ Timolol (Cosopt) 1 drop BID LEFT EYE Last administered on 10:12; Admin Dose 1 DROP; Start 11/15/16 at 21:00 Latanoprost (Xalatan) 1 drop DAILY LEFT EYE Last administered on 11/25/16 10: 22; Admin Dose 1 DROP; Start 11/16/16 at 09:00 Levothyroxine Sodium (Synthroid) 75 mcg DAILY PO Last administered on 10:13; Admin Dose 75 MCG; Start 11/16/16 at 09:00 Salmeterol Xinafoate/ Fluticasone (Advair 250/50 Diskus) 1 inh BID INH Last administered on 11/25/16 10:11; Admin Dose 1 INH; Start 11/15/16 at 21:00 Sertraline HCl (Zoloft) 100 mg QHS PO Last administered on 11/24/16 20:34; Admin Dose 100 MG; Start 11/15/16 at 21:00 Senna/Docusate Sodium (Senokot-S) 2 tab HS PO Last administered on 11/17/16 21 :03; Admin Dose 2 TAB; Start 11/16/16 at 21:00 Lactobacillus Acidophilus/ Rhamnosus (Culturelle) 1 cap BID PO Last administered on 11/25/16 10:13; Admin Dose 1 CAP; Start 11/17/16 at 09:00 Magnesium Hydroxide (Milk Of Mag) 30 ml BID PO Last administered on 11/21/16 08:42; Admin Dose 30 ML; Start 11/17/16 at 14:30 Bisacodyl (Dulcolax Supp) 10 mg DAILY PRN [place] CONSTIPATION; Start 11/17/16 at 14 :30 Mineral Oil (Fleet Mineral Oil Enema) 133 ml DAILY PRN [place] CONSTIPATION; Start 11/17/16 at 14:30 Acetaminophen/ Hydrocodone Bitart ([place] (10/325)) 1 tab Q4H PRN PO PAIN; Start 11/17/16 at 14:30 Zolpidem Tartrate (Ambien) 5 mg HS PRN PO INSOMNIA Last administered on 20:34; Admin Dose 5 MG; Start 11/18/16 at 15:00 Mirtazapine (Remeron) 7.5 mg BID PO Last administered on 11/25/16 10:12; Admin Dose 7.5 MG; Start 11/19/16 at 21:00 Apixaban (Eliquis) 10 mg BID PO Last administered on 11/25/16 10:14; Admin Dose 10 MG; Start 11/20/16 at 09:00 Pantoprazole (Protonix Tab) 40 mg DAILY@06 PO Last administered on 11/25/16 06 :13; Admin Dose 40 MG; Start 11/20/16 at 06:00 Furosemide (Lasix) 20 mg DAILY PO Last administered on 11/25/16 10:14; Admin Dose 20 MG; Start 11/24/16 at 09:00 Loperamide HCl (Imodium Cap) 2 mg Q6H PRN PO DIARRHEA Last administered on 11/25 13:19; Admin Dose 2 MG; Start 11/25/16 at 12:30 Assessment/Plan Additional Assessment/Plan IMP: 1. Community acquired pneumonia 2. Mild congestive cardiac failure 3. Resolving encephalopathy RECS 1. Complete antibiotics 2. PT/OT/rehab efforts 3. Supplemental O2 as needed REGINALDO TRUONG MD Nov 25, 2016 15:14
--- NOTE | 2016-11-25 16:51 | CONS ---
Date/Time of Note Date/Time of Note DATE: 11/25/16 TIME: 16:51 Assessment/Plan Assessment/Plan Chief Complaint/Hosp Course ID PROGRESS NOTE TOTAL ABX DAY # =>OFF ABX 24H s/p Levaquin, Diflucan, Vanco IV 24H INTERVAL SUMMARY * Stable, lethargic F, VSS, NAD * Chart reviewed => Frequent BMs continue, order for C.Diff pending, no fevers PHYSICAL EXAMINATION: GENERAL: VSS,NAD, no fevers HEENT: Unremarkable NECK: Supple, trach-> midline CHEST: Equal chest rise bilaterally, without dyspnea on observation HEART: Pulse RRR ABDOMEN: Soft, benign EXTREMITIES: Warm, SKIN: Warm, dry ID ASSESSMENT: 86 yo F admitted with: 1. Resolving sepsis with fever and leukocytosis on admission. 2. S/p pneumonia, possibly aspiration. 3. S/p UTI. 4. 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 5. Urinary retention=>no acute issues 6. Frequent stools ? ABX associated diarrhea? (-)MRSA NARES (+)VRE Stool colonization INVASIVES: * PIV ABX ALLERGIES: KNDA CURRENT ABX: DAY # OFF ABX 24H ID RECOMMENDATIONS: Keep OFF ABX suspect ABX associated diarrhea F/U C.Diff pending . Problems: Consultation Date/Type/Reason Admit Date/Time Nov 15, 2016 at 16:43 Initial Consult Date Type of Consultation: ID Exam/Review of Systems Vital Signs Vitals Vital Signs Date Time Temp Pulse Resp B/P Pulse Ox O2 Delivery O2 Flow Rate FiO2 11/25/16 08:03 97.6 93 18 138/76 11/24/16 21:51 96 11/24/16 20:00 Nasal Cannula 2.0 Intake and Output 11/24/16 11/24/16 11/25/16 15:00 23:00 07:00 Intake Total 1600 ml 240 ml Balance 1600 ml 240 ml Results Result Diagram: 11/23/16 1005 11/23/16 1005 Medications Medications Current Medications Ondansetron HCl (Zofran Inj) 4 mg Q6H PRN IV NAUSEA AND/OR VOMITING; Start 07/22 at 17:00 Acetaminophen (Tylenol Tab) 650 mg Q6H PRN PO PAIN LEVEL 1-3 OR FEVER; Start at 17:00 Acetaminophen/ Hydrocodone Bitart ([place] (5/325)) 1 tab Q6H PRN PO MODERATE PAIN LEVEL 4-6; Start 11/15/16 at 17:00 Morphine Sulfate (morphine) 2 mg Q4H PRN IV SEVERE PAIN LEVEL 7-10; Start 11/15 at 17:00 Sodium Biphosphate/ Sodium Phosphate (Fleet Enema) 133 ml DAILY PRN [place] CONSTIPATION; Start 11/15/16 at 17:00 Hydralazine HCl (Apresoline) 10 mg Q6H PRN IV ELEVATED BLOOD PRESSURE; Start at 17:00 Clonidine (Catapres) 0.1 mg Q6H PRN PO ELEVATED BLOOD PRESSURE; Start 11/15/16 at 17:00 Nitroglycerin (Nitroglycerin (Sl Tab) 0.4 Mg) 1 tab Q5M PRN [place] ANGINA; Start at 17:00 Dorzolamide/ Timolol (Cosopt) 1 drop BID LEFT EYE Last administered on 10:12; Admin Dose 1 DROP; Start 11/15/16 at 21:00 Latanoprost (Xalatan) 1 drop DAILY LEFT EYE Last administered on 11/25/16 10: 22; Admin Dose 1 DROP; Start 11/16/16 at 09:00 Levothyroxine Sodium (Synthroid) 75 mcg DAILY PO Last administered on 10:13; Admin Dose 75 MCG; Start 11/16/16 at 09:00 Salmeterol Xinafoate/ Fluticasone (Advair 250/50 Diskus) 1 inh BID INH Last administered on 11/25/16 10:11; Admin Dose 1 INH; Start 11/15/16 at 21:00 Sertraline HCl (Zoloft) 100 mg QHS PO Last administered on 11/24/16 20:34; Admin Dose 100 MG; Start 11/15/16 at 21:00 Senna/Docusate Sodium (Senokot-S) 2 tab HS PO Last administered on 11/17/16 21 :03; Admin Dose 2 TAB; Start 11/16/16 at 21:00 Lactobacillus Acidophilus/ Rhamnosus (Culturelle) 1 cap BID PO Last administered on 11/25/16 10:13; Admin Dose 1 CAP; Start 11/17/16 at 09:00 Magnesium Hydroxide (Milk Of Mag) 30 ml BID PO Last administered on 11/21/16 08:42; Admin Dose 30 ML; Start 11/17/16 at 14:30 Bisacodyl (Dulcolax Supp) 10 mg DAILY PRN [place] CONSTIPATION; Start 11/17/16 at 14 :30 Mineral Oil (Fleet Mineral Oil Enema) 133 ml DAILY PRN [place] CONSTIPATION; Start 11/17/16 at 14:30 Acetaminophen/ Hydrocodone Bitart ([place] (10/325)) 1 tab Q4H PRN PO PAIN; Start 11/17/16 at 14:30 Zolpidem Tartrate (Ambien) 5 mg HS PRN PO INSOMNIA Last administered on 20:34; Admin Dose 5 MG; Start 11/18/16 at 15:00 Mirtazapine (Remeron) 7.5 mg BID PO Last administered on 11/25/16 10:12; Admin Dose 7.5 MG; Start 11/19/16 at 21:00 Apixaban (Eliquis) 10 mg BID PO Last administered on 11/25/16 10:14; Admin Dose 10 MG; Start 11/20/16 at 09:00 Pantoprazole (Protonix Tab) 40 mg DAILY@06 PO Last administered on 11/25/16 06 :13; Admin Dose 40 MG; Start 11/20/16 at 06:00 Furosemide (Lasix) 20 mg DAILY PO Last administered on 11/25/16 10:14; Admin Dose 20 MG; Start 11/24/16 at 09:00 Loperamide HCl (Imodium Cap) 2 mg Q6H PRN PO DIARRHEA Last administered on 11/25 13:19; Admin Dose 2 MG; Start 11/25/16 at 12:30 BRENT COLLINS NP Nov 25, 2016 16:51
[2016-11-25] MEDS: SENNA/DOCUSATE NA (8.6MG/50MG) TAB PO SCH (21:00)
[2016-11-25] MEDS: SERTRALINE 100 MG TAB PO SCH (21:28)
[2016-11-25] MEDS: ZOLPIDEM 5 MG TAB PO PRN (21:28)
[2016-11-26] MEDS: PANTOPRAZOLE (EC) 40 MG TAB PO SCH (06:12)
[2016-11-26 07:50] VITALS: BP 128/60; RESP 16
[2016-11-26] MEDS: MAGNESIUM HYDROXIDE 30ML CUP PO SCH ×2 (09:00→20:26)
[2016-11-26] MEDS: SALMETEROL/FLUTICASONE 250/50 INHA INH SCH ×2 (09:04→20:25)
[2016-11-26] MEDS: MIRTAZAPINE 15 MG TAB PO SCH ×2 (09:05→20:25)
[2016-11-26] MEDS: LACTOBACILLUS RHAMNOSUS CAP PO SCH ×2 (09:05→20:25)
[2016-11-26] MEDS: LEVOTHYROXINE 75 MCG TAB PO SCH (09:05)
[2016-11-26] MEDS: DORZOLAMIDE/TIMOLOL 10 ML OPH LEFT EYE SCH ×2 (09:05→20:24)
[2016-11-26] MEDS: LOPERAMIDE 2 MG CAP PO PRN ×3 (09:05→21:13)
[2016-11-26] MEDS: APIXABAN 5 MG TABLET PO SCH ×2 (09:05→20:25)
[2016-11-26] MEDS: FUROSEMIDE 20 MG TAB PO SCH (09:06)
[2016-11-26] MEDS: LATANOPROST 0.005% 2.5 ML OPH LEFT EYE SCH (10:20)
--- NOTE | 2016-11-26 13:48 | PN ---
Date/Time of Note Date/Time of Note DATE: 11/26/16 TIME: 13:46 Assessment/Plan VTE Prophylaxis VTE Prophylaxis Intervention: LMWH Lines/Catheters IV [facility]ter [facility] [place] Urinary Cath still in place: No Assessment/Plan Problems: (1) Acquired autoimmune hypothyroidism Status: Chronic Comment: on treatment (2) Hyperlipidemia Status: Chronic Comment: stable on treatment Qualifiers: Hyperlipidemia type: pure hypercholesterolemia Qualified Code: E78.00 - Pure hypercholesterolemia (3) Essential hypertension Status: Chronic Comment: Controlled (4) COPD (chronic obstructive pulmonary disease) Status: Chronic Comment: Adequately compensated Qualifiers: 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 Constitutional: no complaints Respiratory: no complaints Cardiovascular: no complaints Gastrointestinal: no complaints Genitourinary: no complaints Musculoskeletal: no complaints Exam/Review of Systems Vital Signs Vitals Vital Signs Date Time Temp Pulse Resp B/P Pulse Ox O2 Delivery O2 Flow Rate FiO2 11/26/16 09:00 Nasal Cannula 2.0 11/26/16 07:50 98.4 107 16 128/60 94 Intake and Output 11/25/16 11/25/16 11/26/16 15:00 23:00 07:00 Intake Total 2320 ml 680 ml Balance 2320 ml 680 ml Exam Constitutional: alert, oriented Neck: non-tender, supple Respiratory: clear to auscultation, normal air movement Cardiovascular: nl pulses, regular rate and rhythm Gastrointestinal: nl liver, spleen, non-tender, soft Results Result Diagram: 11/23/16 1005 11/23/16 1005 Medications Medications Current Medications Ondansetron HCl (Zofran Inj) 4 mg Q6H PRN IV NAUSEA AND/OR VOMITING; Start 07/22 at 17:00 Acetaminophen (Tylenol Tab) 650 mg Q6H PRN PO PAIN LEVEL 1-3 OR FEVER; Start at 17:00 Acetaminophen/ Hydrocodone Bitart ([place] (5/325)) 1 tab Q6H PRN PO MODERATE PAIN LEVEL 4-6; Start 11/15/16 at 17:00 Morphine Sulfate (morphine) 2 mg Q4H PRN IV SEVERE PAIN LEVEL 7-10; Start 11/15 at 17:00 Sodium Biphosphate/ Sodium Phosphate (Fleet Enema) 133 ml DAILY PRN [place] CONSTIPATION; Start 11/15/16 at 17:00 Hydralazine HCl (Apresoline) 10 mg Q6H PRN IV ELEVATED BLOOD PRESSURE; Start at 17:00 Clonidine (Catapres) 0.1 mg Q6H PRN PO ELEVATED BLOOD PRESSURE; Start 11/15/16 at 17:00 Nitroglycerin (Nitroglycerin (Sl Tab) 0.4 Mg) 1 tab Q5M PRN SL ANGINA; Start at 17:00 Dorzolamide/ Timolol (Cosopt) 1 drop BID LEFT EYE Last administered on 09:05; Admin Dose 1 DROP; Start 11/15/16 at 21:00 Latanoprost (Xalatan) 1 drop DAILY LEFT EYE Last administered on 11/26/16 10: 20; Admin Dose 1 DROP; Start 11/16/16 at 09:00 Levothyroxine Sodium (Synthroid) 75 mcg DAILY PO Last administered on 09:05; Admin Dose 75 MCG; Start 11/16/16 at 09:00 Salmeterol Xinafoate/ Fluticasone (Advair 250/50 Diskus) 1 inh BID INH Last administered on 11/26/16 09:04; Admin Dose 1 INH; Start 11/15/16 at 21:00 Sertraline HCl (Zoloft) 100 mg QHS PO Last administered on 11/25/16 21:28; Admin Dose 100 MG; Start 11/15/16 at 21:00 Senna/Docusate Sodium (Senokot-S) 2 tab HS PO Last administered on 11/17/16 21 :03; Admin Dose 2 TAB; Start 11/16/16 at 21:00 Lactobacillus Acidophilus/ Rhamnosus (Culturelle) 1 cap BID PO Last administered on 11/26/16 09:05; Admin Dose 1 CAP; Start 11/17/16 at 09:00 Magnesium Hydroxide (Milk Of Mag) 30 ml BID PO Last administered on 11/21/16 08:42; Admin Dose 30 ML; Start 11/17/16 at 14:30 Bisacodyl (Dulcolax Supp) 10 mg DAILY PRN [place] CONSTIPATION; Start 11/17/16 at 14 :30 Mineral Oil (Fleet Mineral Oil Enema) 133 ml DAILY PRN [place] CONSTIPATION; Start 11/17/16 at 14:30 Acetaminophen/ Hydrocodone Bitart ([place] (10/325)) 1 tab Q4H PRN PO PAIN; Start 11/17/16 at 14:30 Zolpidem Tartrate (Ambien) 5 mg HS PRN PO INSOMNIA Last administered on 21:28; Admin Dose 5 MG; Start 11/18/16 at 15:00 Mirtazapine (Remeron) 7.5 mg BID PO Last administered on 11/26/16 09:05; Admin Dose 7.5 MG; Start 11/19/16 at 21:00 Apixaban (Eliquis) 10 mg BID PO Last administered on 11/26/16 09:05; Admin Dose 10 MG; Start 11/20/16 at 09:00 Pantoprazole (Protonix Tab) 40 mg DAILY@06 PO Last administered on 11/26/16 06 :12; Admin Dose 40 MG; Start 11/20/16 at 06:00 Furosemide (Lasix) 20 mg DAILY PO Last administered on 11/26/16 09:06; Admin Dose 20 MG; Start 11/24/16 at 09:00 Loperamide HCl (Imodium Cap) 2 mg Q6H PRN PO DIARRHEA Last administered on 11/26 09:05; Admin Dose 2 MG; Start 11/25/16 at 12:30 LIGIA WEAVER MD Nov 26, 2016 13:48
--- NOTE | 2016-11-26 16:19 | CONS ---
Date/Time of Note Date/Time of Note DATE: 11/26/16 TIME: 16:18 Consult Date/Type/Reason Admit Date/Time Nov 15, 2016 at 16:43 Type of Consultation: Pulm Subjective No events. Objective Vital Signs Date Time Temp Pulse Resp B/P Pulse Ox O2 Delivery O2 Flow Rate FiO2 11/26/16 09:00 Nasal Cannula 2.0 11/26/16 07:50 98.4 107 16 128/60 94 Intake and Output 11/25/16 11/25/16 11/26/16 15:00 23:00 07:00 Intake Total 2320 ml 680 ml Balance 2320 ml 680 ml Exam CARDIAC EXAM: S1, S2. No added sounds or murmurs. CHEST: clear bilaterally ABDOMEN: Soft, nontender. No guarding or rebound. EXTREMITIES: No cyanosis, clubbing or edema. Results/Medications Result Diagram: 11/23/16 1005 11/23/16 1005 Medications Current Medications Ondansetron HCl (Zofran Inj) 4 mg Q6H PRN IV NAUSEA AND/OR VOMITING; Start 07/22 at 17:00 Acetaminophen (Tylenol Tab) 650 mg Q6H PRN PO PAIN LEVEL 1-3 OR FEVER; Start at 17:00 Acetaminophen/ Hydrocodone Bitart ([place] (5/325)) 1 tab Q6H PRN PO MODERATE PAIN LEVEL 4-6; Start 11/15/16 at 17:00 Morphine Sulfate (morphine) 2 mg Q4H PRN IV SEVERE PAIN LEVEL 7-10; Start 11/15 at 17:00 Sodium Biphosphate/ Sodium Phosphate (Fleet Enema) 133 ml DAILY PRN [place] CONSTIPATION; Start 11/15/16 at 17:00 Hydralazine HCl (Apresoline) 10 mg Q6H PRN IV ELEVATED BLOOD PRESSURE; Start at 17:00 Clonidine (Catapres) 0.1 mg Q6H PRN PO ELEVATED BLOOD PRESSURE; Start 11/15/16 at 17:00 Nitroglycerin (Nitroglycerin (Sl Tab) 0.4 Mg) 1 tab Q5M PRN [place] ANGINA; Start at 17:00 Dorzolamide/ Timolol (Cosopt) 1 drop BID LEFT EYE Last administered on t 09:05; Admin Dose 1 DROP; Start 11/15/16 at 21:00 Latanoprost (Xalatan) 1 drop DAILY LEFT EYE Last administered on 11/26/16 10: 20; Admin Dose 1 DROP; Start 11/16/16 at 09:00 Levothyroxine Sodium (Synthroid) 75 mcg DAILY PO Last administered on 09:05; Admin Dose 75 MCG; Start 11/16/16 at 09:00 Salmeterol Xinafoate/ Fluticasone (Advair 250/50 Diskus) 1 inh BID INH Last administered on 11/26/16 09:04; Admin Dose 1 INH; Start 11/15/16 at 21:00 Sertraline HCl (Zoloft) 100 mg QHS PO Last administered on 11/25/16 21:28; Admin Dose 100 MG; Start 11/15/16 at 21:00 Senna/Docusate Sodium (Senokot-S) 2 tab HS PO Last administered on 11/17/16 21 :03; Admin Dose 2 TAB; Start 11/16/16 at 21:00 Lactobacillus Acidophilus/ Rhamnosus (Culturelle) 1 cap BID PO Last administered on 11/26/16 09:05; Admin Dose 1 CAP; Start 11/17/16 at 09:00 Magnesium Hydroxide (Milk Of Mag) 30 ml BID PO Last administered on 11/21/16 08:42; Admin Dose 30 ML; Start 11/17/16 at 14:30 Bisacodyl (Dulcolax Supp) 10 mg DAILY PRN [place] CONSTIPATION; Start 11/17/16 at 14 :30 Mineral Oil (Fleet Mineral Oil Enema) 133 ml DAILY PRN [place] CONSTIPATION; Start 11/17/16 at 14:30 Acetaminophen/ Hydrocodone Bitart ([place] (10/325)) 1 tab Q4H PRN PO PAIN; Start 11/17/16 at 14:30 Zolpidem Tartrate (Ambien) 5 mg HS PRN PO INSOMNIA Last administered on 21:28; Admin Dose 5 MG; Start 11/18/16 at 15:00 Mirtazapine (Remeron) 7.5 mg BID PO Last administered on 11/26/16 09:05; Admin Dose 7.5 MG; Start 11/19/16 at 21:00 Apixaban (Eliquis) 10 mg BID PO Last administered on 11/26/16 09:05; Admin Dose 10 MG; Start 11/20/16 at 09:00 Pantoprazole (Protonix Tab) 40 mg DAILY@06 PO Last administered on 11/26/16 06 :12; Admin Dose 40 MG; Start 11/20/16 at 06:00 Furosemide (Lasix) 20 mg DAILY PO Last administered on 11/26/16 09:06; Admin Dose 20 MG; Start 11/24/16 at 09:00 Loperamide HCl (Imodium Cap) 2 mg Q6H PRN PO DIARRHEA Last administered on 11/26 15:10; Admin Dose 2 MG; Start 11/25/16 at 12:30 Assessment/Plan Additional Assessment/Plan IMP: 1. Community acquired pneumonia 2. Mild congestive cardiac failure 3. Resolving encephalopathy RECS 1. Complete antibiotics 2. PT/OT/rehab efforts 3. Aspiration precautions REGINALDO TRUONG MD Nov 26, 2016 16:19
--- NOTE | 2016-11-26 16:31 | PN ---
DATE: Not much improvement following a steroid injection into the flexor tendon issac of the left thumb. Repeated examination is showing persistent painless triggering of the left thumb. Possible further treatment with surgical release of the flexor issac was discussed with the patient. However, the patient is not willing to have any surgery on her thumb at this time. Further ortho followup would be on p.r.n. basis. Dictated By: ROOSEVELT HARVEY/VU Conf#: [id number] DID#: [id number]
[2016-11-26] MEDS: SERTRALINE 100 MG TAB PO SCH (20:25)
[2016-11-26] MEDS: SENNA/DOCUSATE NA (8.6MG/50MG) TAB PO SCH (20:26)
[2016-11-26 20:30] VITALS: BP 121/72; RESP 18
[2016-11-26] MEDS: ZOLPIDEM 5 MG TAB PO PRN (21:13)
--- NOTE | 2016-11-26 21:26 | CONS ---
Date/Time of Note Date/Time of Note DATE: 11/26/16 TIME: 21:22 Assessment/Plan Assessment/Plan Chief Complaint/Hosp Course ID PROGRESS NOTE TOTAL ABX DAY # =>OFF ABX 48H s/p Levaquin, Diflucan, Vanco IV 24H INTERVAL SUMMARY * Still has diarrhea -- ABX DC'd w/(-)C.Diff, no fevers * Ortho note appreciated PHYSICAL EXAMINATION: GENERAL: VSS,NAD, no fevers HEENT: Unremarkable NECK: Supple, trach-> midline CHEST: Equal chest rise bilaterally, without dyspnea on observation HEART: Pulse RRR ABDOMEN: Soft, benign EXTREMITIES: Warm, SKIN: Warm, dry ID ASSESSMENT: 86 yo F admitted with: 1. Resolving sepsis with fever and leukocytosis on admission. 2. S/p pneumonia, possibly aspiration. 3. S/p UTI. 4. 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 5. Urinary retention=>no acute issues 6. Frequent stools => ABX associated diarrhea w/(-)C.Diff toxin (-)MRSA NARES (+)VRE Stool colonization INVASIVES: * PIV ABX ALLERGIES: KNDA CURRENT ABX: DAY # OFF ABX 48H ID RECOMMENDATIONS: Keep OFF ABX suspect ABX associated diarrhea Continue Pro-Biotics + Imodium If diarrhea continues, short course PO Flagyl will likely benefit despite (-) C.Diff toxin . Problems: Consultation Date/Type/Reason Admit Date/Time Nov 15, 2016 at 16:43 Exam/Review of Systems Vital Signs Vitals Vital Signs Date Time Temp Pulse Resp B/P Pulse Ox O2 Delivery O2 Flow Rate FiO2 11/26/16 20:30 97.9 99 18 121/72 95 11/26/16 09:00 Nasal Cannula 2.0 Intake and Output 11/25/16 11/25/16 11/26/16 15:00 23:00 07:00 Intake Total 2320 ml 680 ml Balance 2320 ml 680 ml Results Result Diagram: 11/23/16 1005 11/23/16 1005 Medications Medications Current Medications Ondansetron HCl (Zofran Inj) 4 mg Q6H PRN IV NAUSEA AND/OR VOMITING; Start 07/22 at 17:00 Acetaminophen (Tylenol Tab) 650 mg Q6H PRN PO PAIN LEVEL 1-3 OR FEVER; Start at 17:00 Acetaminophen/ Hydrocodone Bitart ([place] (5/325)) 1 tab Q6H PRN PO MODERATE PAIN LEVEL 4-6; Start 11/15/16 at 17:00 Morphine Sulfate (morphine) 2 mg Q4H PRN IV SEVERE PAIN LEVEL 7-10; Start 11/15 at 17:00 Sodium Biphosphate/ Sodium Phosphate (Fleet Enema) 133 ml DAILY PRN [place] CONSTIPATION; Start 11/15/16 at 17:00 Hydralazine HCl (Apresoline) 10 mg Q6H PRN IV ELEVATED BLOOD PRESSURE; Start at 17:00 Clonidine (Catapres) 0.1 mg Q6H PRN PO ELEVATED BLOOD PRESSURE; Start 11/15/16 at 17:00 Nitroglycerin (Nitroglycerin (Sl Tab) 0.4 Mg) 1 tab Q5M PRN SL ANGINA; Start at 17:00 Dorzolamide/ Timolol (Cosopt) 1 drop BID LEFT EYE Last administered on 20:24; Admin Dose 1 DROP; Start 11/15/16 at 21:00 Latanoprost (Xalatan) 1 drop DAILY LEFT EYE Last administered on 11/26/16 10: 20; Admin Dose 1 DROP; Start 11/16/16 at 09:00 Levothyroxine Sodium (Synthroid) 75 mcg DAILY PO Last administered on 09:05; Admin Dose 75 MCG; Start 11/16/16 at 09:00 Salmeterol Xinafoate/ Fluticasone (Advair 250/50 Diskus) 1 inh BID INH Last administered on 11/26/16 20:25; Admin Dose 1 INH; Start 11/15/16 at 21:00 Sertraline HCl (Zoloft) 100 mg QHS PO Last administered on 11/26/16 20:25; Admin Dose 100 MG; Start 11/15/16 at 21:00 Senna/Docusate Sodium (Senokot-S) 2 tab HS PO Last administered on 11/17/16 21 :03; Admin Dose 2 TAB; Start 11/16/16 at 21:00 Lactobacillus Acidophilus/ Rhamnosus (Culturelle) 1 cap BID PO Last administered on 11/26/16 20:25; Admin Dose 1 CAP; Start 11/17/16 at 09:00 Magnesium Hydroxide (Milk Of Mag) 30 ml BID PO Last administered on 11/21/16 08:42; Admin Dose 30 ML; Start 11/17/16 at 14:30 Bisacodyl (Dulcolax Supp) 10 mg DAILY PRN [place] CONSTIPATION; Start 11/17/16 at 14 :30 Mineral Oil (Fleet Mineral Oil Enema) 133 ml DAILY PRN [place] CONSTIPATION; Start 11/17/16 at 14:30 Acetaminophen/ Hydrocodone Bitart ([place] (10/325)) 1 tab Q4H PRN PO PAIN; Start 11/17/16 at 14:30 Zolpidem Tartrate (Ambien) 5 mg HS PRN PO INSOMNIA Last administered on 21:13; Admin Dose 5 MG; Start 11/18/16 at 15:00 Mirtazapine (Remeron) 7.5 mg BID PO Last administered on 11/26/16 20:25; Admin Dose 7.5 MG; Start 11/19/16 at 21:00 Apixaban (Eliquis) 10 mg BID PO Last administered on 11/26/16 20:25; Admin Dose 10 MG; Start 11/20/16 at 09:00 Pantoprazole (Protonix Tab) 40 mg DAILY@06 PO Last administered on 11/26/16 06 :12; Admin Dose 40 MG; Start 11/20/16 at 06:00 Furosemide (Lasix) 20 mg DAILY PO Last administered on 11/26/16 09:06; Admin Dose 20 MG; Start 11/24/16 at 09:00 Loperamide HCl (Imodium Cap) 2 mg Q6H PRN PO DIARRHEA Last administered on 11/26 21:13; Admin Dose 2 MG; Start 11/25/16 at 12:30 BRENT COLLINS NP Nov 26, 2016 21:26
[2016-11-27 05:33] LABS: ADD SCAN DIFF NO
[2016-11-27 05:37] LABS: BASOPHIL # 0.1 10^3/ul (0.0-0.1); BASOPHILS % 0.5 % (0.0-2.0); EOSINOPHILS # 0.2 10^3/ul (0.0-0.5); EOSINOPHILS % 1.6 % (0.0-7.0); HEMATOCRIT 30.9 % (37.0-47.0); HEMOGLOBIN 9.4 g/dl (12.0-16.0); LYMPHOCYTES # 2.9 10^3/ul (0.8-2.9); LYMPHOCYTES % 28.2 % (15.0-51.0); MEAN CORPUSCULAR HEMOGLOBIN 27.3 pg (29.0-33.0); MEAN CORPUSCULAR HGB CONC 30.4 g/dl (32.0-37.0); MEAN CORPUSCULAR VOLUME 89.8 fl (82.0-101.0); MEAN PLATELET VOLUME 9.2 fl (7.4-10.4); MONOCYTE # 1.1 10^3/ul (0.3-0.9); MONOCYTES % 11.1 % (0.0-11.0); NEUTROPHIL # 5.9 10^3/ul (1.6-7.5); NEUTROPHILS % 58.1 % (39.0-77.0); PLATELET COUNT 495 10^3/UL (140-415); RED BLOOD COUNT 3.44 10^6/ul (4.20-5.40); RED CELL DISTRIBUTION WIDTH 15.9 % (11.5-14.5); WHITE BLOOD COUNT 10.2 10^3/ul (4.8-10.8)
[2016-11-27 05:52] LABS: ALBUMIN 3.1 g/dl (3.3-4.9)
[2016-11-27 05:53] LABS: POTASSIUM 4.4 mmol/L (3.5-5.1)
[2016-11-27 05:55] LABS: ALBUMIN/GLOBULIN RATIO 0.79; CREATININE 0.95 mg/dl (0.44-1.00)
[2016-11-27 05:56] LABS: CALCIUM 9.1 mg/dl (8.4-10.2)
[2016-11-27] MEDS: PANTOPRAZOLE (EC) 40 MG TAB PO SCH (06:04)
[2016-11-27 08:18] VITALS: BP 113/55; RESP 16
[2016-11-27] MEDS: MAGNESIUM HYDROXIDE 30ML CUP PO SCH ×2 (08:41→20:37)
[2016-11-27] MEDS: LEVOTHYROXINE 75 MCG TAB PO SCH (08:45)
[2016-11-27] MEDS: FUROSEMIDE 20 MG TAB PO SCH (08:45)
[2016-11-27] MEDS: MIRTAZAPINE 15 MG TAB PO SCH ×2 (08:45→20:36)
[2016-11-27] MEDS: LACTOBACILLUS RHAMNOSUS CAP PO SCH ×2 (08:46→20:36)
[2016-11-27] MEDS: APIXABAN 5 MG TABLET PO SCH ×2 (08:46→20:36)
[2016-11-27] MEDS: SALMETEROL/FLUTICASONE 250/50 INHA INH SCH ×2 (08:47→20:37)
[2016-11-27] MEDS: DORZOLAMIDE/TIMOLOL 10 ML OPH LEFT EYE SCH ×2 (08:47→20:37)
[2016-11-27] MEDS: LOPERAMIDE 2 MG CAP PO PRN ×2 (08:52→16:01)
[2016-11-27] MEDS: LATANOPROST 0.005% 2.5 ML OPH LEFT EYE SCH (08:53)
--- NOTE | 2016-11-27 10:04 | PN ---
Date/Time of Note Date/Time of Note DATE: 11/27/16 TIME: 09:53 Assessment/Plan VTE Prophylaxis VTE Prophylaxis Intervention: other (Eliquis) Lines/Catheters IV Catheter Type (from [facility]): Saline Lock Urinary Cath still in place: No Assessment/Plan Chief Complaint/Hosp Course Assessment/Plan 1. Bilateral Pneumonia with recurrent bilateral pleural effusions R>L - slowly improving * Status post thoracentesis on 10/04/2016 * off abx now, f/u ID rec's 2. Acute deep vein thrombosis of the left common femoral vein and popliteal vein. - Continue anticoagulation Eliquis. 3. Acute respiratory failure - improving - Most probably secondary to underlying healthcare-associated pneumonia. - continue O2 - 20 mg lasix daily 4. Chronic obstructive pulmonary disease: s/p exacerbation but improved. - Continue inhaled bronchodilators and wean off supplemental oxygen. 5. 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 Possible further treatment with surgical release of the flexor issac was discussed with the patient and ortho, but apparently she is declining surgery. - f/u ortho rec's 6. Hx of abd abscesses Status post exploratory laparotomy and abdominal washout with a small bowel resection x2 on 09/20/2016. 7. Reported hx of Irritable bowel syndrome. Continue to monitor. 8. Chronic Depression. 9. Anemia, most probably anemia of chronic disease 10. Hypothyroidism: stable 11. Dyslipidemia with low HDL 12. weakness - Continue in-house PT DISP: Per Acute Rehab Eval - does not qualify at this time b/c on O2 supp. Problems: Subjective 24 Hr Interval Summary Free Text/Dictation Pt still with some diarrhea this AM. Exam/Review of Systems Vital Signs Vitals Vital Signs Date Time Temp Pulse Resp B/P Pulse Ox O2 Delivery O2 Flow Rate FiO2 11/27/16 08:18 97.3 92 16 113/55 95 11/26/16 21:30 Nasal Cannula 2.0 Intake and Output 11/26/16 11/26/16 11/27/16 15:00 23:00 07:00 Intake Total 2320 ml 680 ml Balance 2320 ml 680 ml Exam Constitutional: alert, oriented Neck: non-tender, supple Respiratory: clear to auscultation, normal air movement Cardiovascular: nl pulses, regular rate and rhythm Gastrointestinal: nl liver, spleen, non-tender, soft Results Result Diagram: 11/27/16 0505 11/27/16 0505 Results 24 hrs Laboratory Tests Test 11/27/16 05:05 White Blood Count 10.2 # Red Blood Count 3.44 L Hemoglobin 9.4 L Hematocrit 30.9 L Mean Corpuscular Volume 89.8 Mean Corpuscular Hemoglobin 27.3 L Mean Corpuscular Hemoglobin Concent 30.4 L Red Cell Distribution Width 15.9 H Platelet Count 495 H Mean Platelet Volume 9.2 Neutrophils % 58.1 Lymphocytes % 28.2 Monocytes % 11.1 H Eosinophils % 1.6 Basophils % 0.5 Nucleated Red Blood Cells % 0.0 Neutrophils # 5.9 Lymphocytes # 2.9 Monocytes # 1.1 H Eosinophils # 0.2 Basophils # 0.1 Nucleated Red Blood Cells # 0.0 Sodium Level 139 Potassium Level 4.4 Chloride Level 101 Carbon Dioxide Level 29 Anion Gap 13 Blood Urea Nitrogen 33 H Creatinine 0.95 Glucose Level 94 Calcium Level 9.1 Total Bilirubin 0.0 L Direct Bilirubin 0.00 Indirect Bilirubin 0.0 Aspartate Amino Transf (AST/SGOT) 25 Alanine Aminotransferase (ALT/SGPT) 31 Alkaline Phosphatase 76 Total Protein 7.0 Albumin 3.1 L Globulin 3.90 H Albumin/Globulin Ratio 0.79 Medications Medications Current Medications Ondansetron HCl (Zofran Inj) 4 mg Q6H PRN IV NAUSEA AND/OR VOMITING; Start 07/22 at 17:00 Acetaminophen (Tylenol Tab) 650 mg Q6H PRN PO PAIN LEVEL 1-3 OR FEVER; Start at 17:00 Acetaminophen/ Hydrocodone Bitart ([place] (5/325)) 1 tab Q6H PRN PO MODERATE PAIN LEVEL 4-6; Start 11/15/16 at 17:00 Morphine Sulfate (morphine) 2 mg Q4H PRN IV SEVERE PAIN LEVEL 7-10; Start 11/15 at 17:00 Sodium Biphosphate/ Sodium Phosphate (Fleet Enema) 133 ml DAILY PRN [place] CONSTIPATION; Start 11/15/16 at 17:00 Hydralazine HCl (Apresoline) 10 mg Q6H PRN IV ELEVATED BLOOD PRESSURE; Start at 17:00 Clonidine (Catapres) 0.1 mg Q6H PRN PO ELEVATED BLOOD PRESSURE; Start 11/15/16 at 17:00 Nitroglycerin (Nitroglycerin (Sl Tab) 0.4 Mg) 1 tab Q5M PRN SL ANGINA; Start at 17:00 Dorzolamide/ Timolol (Cosopt) 1 drop BID LEFT EYE Last administered on 08:47; Admin Dose 1 DROP; Start 11/15/16 at 21:00 Latanoprost (Xalatan) 1 drop DAILY LEFT EYE Last administered on 11/27/16 08: 53; Admin Dose 1 DROP; Start 11/16/16 at 09:00 Levothyroxine Sodium (Synthroid) 75 mcg DAILY PO Last administered on 08:45; Admin Dose 75 MCG; Start 11/16/16 at 09:00 Salmeterol Xinafoate/ Fluticasone (Advair 250/50 Diskus) 1 inh BID INH Last administered on 11/27/16 08:47; Admin Dose 1 INH; Start 11/15/16 at 21:00 Sertraline HCl (Zoloft) 100 mg QHS PO Last administered on 11/26/16 20:25; Admin Dose 100 MG; Start 11/15/16 at 21:00 Senna/Docusate Sodium (Senokot-S) 2 tab HS PO Last administered on 11/17/16 21 :03; Admin Dose 2 TAB; Start 11/16/16 at 21:00 Lactobacillus Acidophilus/ Rhamnosus (Culturelle) 1 cap BID PO Last administered on 11/27/16 08:46; Admin Dose 1 CAP; Start 11/17/16 at 09:00 Magnesium Hydroxide (Milk Of Mag) 30 ml BID PO Last administered on 11/21/16 08:42; Admin Dose 30 ML; Start 11/17/16 at 14:30 Bisacodyl (Dulcolax Supp) 10 mg DAILY PRN [place] CONSTIPATION; Start 11/17/16 at 14 :30 Mineral Oil (Fleet Mineral Oil Enema) 133 ml DAILY PRN [place] CONSTIPATION; Start 11/17/16 at 14:30 Acetaminophen/ Hydrocodone Bitart ([place] (10/325)) 1 tab Q4H PRN PO PAIN; Start 11/17/16 at 14:30 Zolpidem Tartrate (Ambien) 5 mg HS PRN PO INSOMNIA Last administered on 21:13; Admin Dose 5 MG; Start 11/18/16 at 15:00 Mirtazapine (Remeron) 7.5 mg BID PO Last administered on 11/27/16 08:45; Admin Dose 7.5 MG; Start 11/19/16 at 21:00 Pantoprazole (Protonix Tab) 40 mg DAILY@06 PO Last administered on 11/27/16 06 :04; Admin Dose 40 MG; Start 11/20/16 at 06:00 Furosemide (Lasix) 20 mg DAILY PO Last administered on 11/27/16 08:45; Admin Dose 20 MG; Start 11/24/16 at 09:00 Loperamide HCl (Imodium Cap) 2 mg Q6H PRN PO DIARRHEA Last administered on 11/27 08:52; Admin Dose 2 MG; Start 11/25/16 at 12:30 Apixaban (Eliquis) 5 mg BID PO ; Start 11/27/16 at 21:00; Status LUIS DANIEL FORTUNE Nov 27, 2016 10:03
--- NOTE | 2016-11-27 11:24 | CONS ---
Date/Time of Note Date/Time of Note DATE: 11/27/16 TIME: 11:23 Consult Date/Type/Reason Admit Date/Time Nov 15, 2016 at 16:43 Initial Consult Date Pulmonary Type of Consultation: pulmonary Subjective Patient remains stable this morning no new events Objective Vital Signs Date Time Temp Pulse Resp B/P Pulse Ox O2 Delivery O2 Flow Rate FiO2 11/27/16 10:49 Nasal Cannula 3.0 11/27/16 08:18 97.3 92 16 113/55 95 Intake and Output 11/26/16 11/26/16 11/27/16 15:00 23:00 07:00 Intake Total 2320 ml 680 ml Balance 2320 ml 680 ml Results/Medications Result Diagram: 11/27/16 0505 11/27/16 0505 Results 24 hrs Laboratory Tests Test 11/27/16 05:05 White Blood Count 10.2 # Red Blood Count 3.44 L Hemoglobin 9.4 L Hematocrit 30.9 L Mean Corpuscular Volume 89.8 Mean Corpuscular Hemoglobin 27.3 L Mean Corpuscular Hemoglobin Concent 30.4 L Red Cell Distribution Width 15.9 H Platelet Count 495 H Mean Platelet Volume 9.2 Neutrophils % 58.1 Lymphocytes % 28.2 Monocytes % 11.1 H Eosinophils % 1.6 Basophils % 0.5 Nucleated Red Blood Cells % 0.0 Neutrophils # 5.9 Lymphocytes # 2.9 Monocytes # 1.1 H Eosinophils # 0.2 Basophils # 0.1 Nucleated Red Blood Cells # 0.0 Sodium Level 139 Potassium Level 4.4 Chloride Level 101 Carbon Dioxide Level 29 Anion Gap 13 Blood Urea Nitrogen 33 H Creatinine 0.95 Glucose Level 94 Calcium Level 9.1 Total Bilirubin 0.0 L Direct Bilirubin 0.00 Indirect Bilirubin 0.0 Aspartate Amino Transf (AST/SGOT) 25 Alanine Aminotransferase (ALT/SGPT) 31 Alkaline Phosphatase 76 Total Protein 7.0 Albumin 3.1 L Globulin 3.90 H Albumin/Globulin Ratio 0.79 Medications Current Medications Ondansetron HCl (Zofran Inj) 4 mg Q6H PRN IV NAUSEA AND/OR VOMITING; Start 07/22 at 17:00 Acetaminophen (Tylenol Tab) 650 mg Q6H PRN PO PAIN LEVEL 1-3 OR FEVER; Start at 17:00 Acetaminophen/ Hydrocodone Bitart ([place] (5/325)) 1 tab Q6H PRN PO MODERATE PAIN LEVEL 4-6; Start 11/15/16 at 17:00 Morphine Sulfate (morphine) 2 mg Q4H PRN IV SEVERE PAIN LEVEL 7-10; Start 11/15 at 17:00 Sodium Biphosphate/ Sodium Phosphate (Fleet Enema) 133 ml DAILY PRN [place] CONSTIPATION; Start 11/15/16 at 17:00 Hydralazine HCl (Apresoline) 10 mg Q6H PRN IV ELEVATED BLOOD PRESSURE; Start at 17:00 Clonidine (Catapres) 0.1 mg Q6H PRN PO ELEVATED BLOOD PRESSURE; Start 11/15/16 at 17:00 Nitroglycerin (Nitroglycerin (Sl Tab) 0.4 Mg) 1 tab Q5M PRN SL ANGINA; Start at 17:00 Dorzolamide/ Timolol (Cosopt) 1 drop BID LEFT EYE Last administered on 08:47; Admin Dose 1 DROP; Start 11/15/16 at 21:00 Latanoprost (Xalatan) 1 drop DAILY LEFT EYE Last administered on 11/27/16 08: 53; Admin Dose 1 DROP; Start 11/16/16 at 09:00 Levothyroxine Sodium (Synthroid) 75 mcg DAILY PO Last administered on 08:45; Admin Dose 75 MCG; Start 11/16/16 at 09:00 Salmeterol Xinafoate/ Fluticasone (Advair 250/50 Diskus) 1 inh BID INH Last administered on 11/27/16 08:47; Admin Dose 1 INH; Start 11/15/16 at 21:00 Sertraline HCl (Zoloft) 100 mg QHS PO Last administered on 11/26/16 20:25; Admin Dose 100 MG; Start 11/15/16 at 21:00 Senna/Docusate Sodium (Senokot-S) 2 tab HS PO Last administered on 11/17/16 21 :03; Admin Dose 2 TAB; Start 11/16/16 at 21:00 Lactobacillus Acidophilus/ Rhamnosus (Culturelle) 1 cap BID PO Last administered on 11/27/16 08:46; Admin Dose 1 CAP; Start 11/17/16 at 09:00 Magnesium Hydroxide (Milk Of Mag) 30 ml BID PO Last administered on 11/21/16 08:42; Admin Dose 30 ML; Start 11/17/16 at 14:30 Bisacodyl (Dulcolax Supp) 10 mg DAILY PRN [place] CONSTIPATION; Start 11/17/16 at 14 :30 Mineral Oil (Fleet Mineral Oil Enema) 133 ml DAILY PRN [place] CONSTIPATION; Start 11/17/16 at 14:30 Acetaminophen/ Hydrocodone Bitart ([place] (10/325)) 1 tab Q4H PRN PO PAIN; Start 11/17/16 at 14:30 Zolpidem Tartrate (Ambien) 5 mg HS PRN PO INSOMNIA Last administered on 21:13; Admin Dose 5 MG; Start 11/18/16 at 15:00 Mirtazapine (Remeron) 7.5 mg BID PO Last administered on 11/27/16 08:45; Admin Dose 7.5 MG; Start 11/19/16 at 21:00 Pantoprazole (Protonix Tab) 40 mg DAILY@06 PO Last administered on 11/27/16 06 :04; Admin Dose 40 MG; Start 11/20/16 at 06:00 Furosemide (Lasix) 20 mg DAILY PO Last administered on 11/27/16 08:45; Admin Dose 20 MG; Start 11/24/16 at 09:00 Apixaban (Eliquis) 5 mg BID PO ; Start 11/27/16 at 21:00 Loperamide HCl (Imodium Cap) 2 mg Q4H PRN PO DIARRHEA; Start 11/27/16 at 10:30 Assessment/Plan Chief Complaint/Hosp Course IMP: 1. Community acquired pneumonia 2. Mild congestive cardiac failure 3. Resolving encephalopathy RECS 1. Complete antibiotics 2. PT/OT/rehab efforts 3. Aspiration precautions Discussed case management discharge planning in process Problems: DUDLEY COWAN MD, [facility] Nov 27, 2016 11:24
--- NOTE | 2016-11-27 17:26 | DS ---
Date/Time of Note Date/Time of Note DATE: 11/27/16 TIME: 17:21 Discharge Summary Admission/Discharge Info Admit Date/Time Nov 15, 2016 at 16:43 Discharge Date/Time Final Diagnosis 1. Acute hypoxic respiratory failure - improved, on 2 L O2 via [place] 2. Bilateral healthcare-associated pneumonia. 3. DVT -on anticoagulation 4. Deconditioning. 5. Urinary retention. 6. Constipation, obstruction. 7. Failure to thrive. Hospital Course 86-year-old female [facility] with shortness of breath, fever, leukocytosis, abnormal x-ray consistent with healthcare-associated pneumonia. She seems to be improving with supportive care. Appreciate ID assistance. She received antibiotics for sepsis sec to PNA and UTI. Due to deconditioning, will still need to go to the SNF vs rehab, will need bladder training and bowel or bladder care regimen. Daughter aware of the plan of care as well. Bilateral pleural effusion may be followed up as an outpatient. Possible history of thoracentesis. Presently with healthcare-associated pneumonia and no evidence of sepsis. Incidentally, found to have a lower extremity DVT. She is tolerating anticoagulation. However, management will not change. There is no tachypnea and the patient is tolerating anticoagulation. Her surgical care seems to be stable. She had surgery back in August for extensive loculated right lower quadrant abscess with small-bowel obstruction, with right lower quadrant transition point. The present CAT scan looks okay. She is tolerating diet, but appetite has been an issue. For her issue with appetite, it is probably multifactorial in nature, she is not burning a lot of calories. Ambulation and issues with anxiety, agitation and depression will be appreciated. I have started her on Remeron. She will continue, I believe, Celexa. Incidentally, the patient has a left thumb dislocation fracture. Nonweightbearing. Seen by ortho team, not much improvement following a steroid injection into the flexor tendon issac of the left thumb. Repeated examination is showing persistent painless triggering of the left thumb. Possible further treatment with surgical release of the flexor issac was discussed with the patient. However, the patient is not willing to have any surgery on her thumb at this time. Further ortho followup would be on p.r.n. basis. She is also on loperamide for diarrhea, negative c diff test. Home Meds Active Scripts Sennosides/Docusate Sodium (Senna Plus Tablet) 1 Each Tablet, 2 TAB PO HS for 28 Days, TAB Prov:LISA ENGLISH MD 11/22/16 Ondansetron Hcl* (Ondansetron Hcl* Inj) 4 Mg/2 Ml Vial, 4 MG IV Q6H Y for NAUSEA AND/OR VOMITING for 30 Days, VIAL Prov:LISA ENGLISH MD 11/22/16 Nitroglycerin* (Nitrostat*) 0.4 Mg Tab.subl, 1 TAB SL Q5M Y for ANGINA for 30 Days Prov:LISA ENGLISH MD 11/22/16 Hydralazine Hcl* (Apresoline* Pediatric Oral) 1 Mg/Ml (Compounded) Oral Solution , 10 MG IV Q6H Y for ELEVATED BLOOD PRESSURE for 28 Days Prov:LISA ENGLISH MD 11/22/16 Clonidine Hcl* (Catapres*) 0.1 Mg Tablet, 0.1 MG PO Q6H Y for ELEVATED BLOOD PRESSURE for 30 Days, TAB Prov:LISA ENGLISH MD 11/22/16 [Hydrocodone/Apap (10/325)] 1 TAB TAB No Conflict Check, 1 TAB PO Q4H Y for PAIN for 28 Days Prov:LISA ENGLISH MD 11/22/16 Hydrocodone Bit-Acetaminophen (Hydrocodone Bit-APAP) 5-325MG Tablet, 1 TAB PO Q6H Y for MODERATE PAIN LEVEL 4-6 for 28 Days, TAB Prov:LISA ENGLISH MD 11/22/16 Acetaminophen (MAPAP) 325 Mg Tablet, 650 MG PO Q6H Y for PAIN LEVEL 1-3 OR FEVER for 30 Days, TAB Prov:LISA ENGLISH MD 11/22/16 Morphine Sulfate (Morphine Sulfate) 2 Mg/Ml Soln, 2 MG IV Q4H Y for SEVERE PAIN LEVEL 7-10, #30 Prov:LISA ENGLISH MD 11/22/16 Mirtazapine* (Mirtazapine*) 15 Mg Tablet, 7.5 MG PO BID for 30 Days, TAB Prov:LISA ENGLISH MD 11/22/16 Zolpidem Tartrate (Ambien Hitesh) 5 Mg Tablet, 5 MG PO HS Y for INSOMNIA for 30 Days, TAB Prov:LISA ENGLISH MD 11/22/16 Bisacodyl* (Bisacodyl*) 10 Mg Supp, 10 MG [place] DAILY Y for CONSTIPATION for 30 Days, SUPP Prov:LISA ENGLISH MD 11/22/16 Lactobacillus Rhamnosus* (Culturelle*) 1 Each Cap.sprink, 1 CAP PO BID for 30 Days, CAP Prov:LISA ENGLISH MD 11/22/16 Pantoprazole* (Pantoprazole*) 40 Mg Tablet.dr, 40 MG PO DAILY@06, #30 Prov:LISA ENGLISH MD 11/22/16 Apixaban* (Eliquis*) 5 Mg Tablet, 10 MG PO BID for 30 Days, TAB Prov:LISA NEGLISH MD 11/22/16 Levalbuterol* (Xopenex* HFA) 15 Gm Inha, 2 PUFFS INH Q4H Y for WHEEZING AND SOB , #1 INHALER Prov:LISA ENGLISH MD 11/22/16 Levofloxacin* (Levofloxacin*) 500 Mg Tablet, 500 MG PO DAILY, #3 TAB Prov:LISA ENGLISH MD 11/22/16 Reported Medications Lorazepam* (Lorazepam*) 0.5 Mg Tablet, 0.5 MG PO HS Y for ANXIETY, TAB 11/15/16 Atorvastatin Calcium* (Atorvastatin Calcium*) 20 Mg Tablet, 20 MG PO QHS, #30 TAB 11/15/16 Furosemide* (Furosemide*) 40 Mg Tablet, 40 MG PO DAILY, TAB 11/15/16 Sertraline Hcl* (Zoloft*) 100 Mg Tablet, 100 MG PO QHS, #30 TAB 09/29/16 Salmeterol Xinaf/Fluticasone* (Advair*) 250-50 Diskus Inhaler, 1 INH INH BID, INH 02/13/15 Dorzolamide-Timolol* (Cosopt*) 2%-0.5% Soln, 1 DROP LEFT EYE BID, BOTTLE 02/01/15 Latanoprost (Xalatan) 2.5 Ml Drops, 1 DROP LEFT EYE DAILY 02/01/15 Levothyroxine Sodium* (Levothyroxine Sodium*) 75 Mcg Tablet, 75 MCG PO DAILY, TAB 02/01/15 Pending Labs Laboratory Tests Test 11/27/16 05:05 White Blood Count 10.210^3/ul (4.8-10.8) Red Blood Count 3.4410^6/ul (4.20-5.40) Hemoglobin 9.4g/dl (12.0-16.0) Hematocrit 30.9% (37.0-47.0) Mean Corpuscular Volume 89.8fl (82.0-101.0) Mean Corpuscular Hemoglobin 27.3pg (29.0-33.0) Mean Corpuscular Hemoglobin Concent 30.4g/dl (32.0-37.0) Red Cell Distribution Width 15.9% (11.5-14.5) Platelet Count 03427^3/UL (140-415) Mean Platelet Volume 9.2fl (7.4-10.4) Neutrophils % 58.1% (39.0-77.0) Lymphocytes % 28.2% (15.0-51.0) Monocytes % 11.1% (0.0-11.0) Eosinophils % 1.6% (0.0-7.0) Basophils % 0.5% (0.0-2.0) Nucleated Red Blood Cells % 0.0/100WBC (0.0-0.0) Neutrophils # 5.910^3/ul (1.6-7.5) Lymphocytes # 2.910^3/ul (0.8-2.9) Monocytes # 1.110^3/ul (0.3-0.9) Eosinophils # 0.210^3/ul (0.0-0.5) Basophils # 0.110^3/ul (0.0-0.1) Nucleated Red Blood Cells # 0.010^3/ul (0.0-0.0) Sodium Level 139mmol/L (135-144) Potassium Level 4.4mmol/L (3.5-5.1) Chloride Level 101mmol/L (97-110) Carbon Dioxide Level 29mmol/L (21-31) Anion Gap 13 (8-16) Blood Urea Nitrogen 33mg/dl (7-20) Creatinine 0.95mg/dl (0.44-1.00) Glucose Level 94mg/dl (70-220) Calcium Level 9.1mg/dl (8.4-10.2) Total Bilirubin 0.0mg/dl (0.2-1.3) Direct Bilirubin 0.00mg/dl (0.00-0.20) Indirect Bilirubin 0.0mg/dl (0-1.1) Aspartate Amino Transf (AST/SGOT) 25IU/L (15-46) Alanine Aminotransferase (ALT/SGPT) 31IU/L (13-69) Alkaline Phosphatase 76IU/L (42-121) Total Protein 7.0g/dl (6.1-8.1) Albumin 3.1g/dl (3.3-4.9) Globulin 3.90g/dl (1.3-3.2) Albumin/Globulin Ratio 0.79 LUIS DANIEL MICHEL Nov 27, 2016 17:26
--- NOTE | 2016-11-27 18:31 | CONS ---
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 s/p sepsis with fever and leukocytosis on admission = RESOLVED 2. S/p pneumonia, possibly aspiration. 3. S/p UTI. 4. 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 5. Urinary retention=>no acute issues 6. Frequent stools => ABX associated diarrhea w/(-)C.Diff toxin (-)MRSA NARES (+)VRE Stool colonization INVASIVES: * PIV ABX ALLERGIES: KNDA CURRENT ABX: DAY # OFF ABX 72H ID RECOMMENDATIONS: Keep OFF ABX suspect ABX associated diarrhea Continue Pro-Biotics + Imodium DIARRHEA PERSISTING -- Let's try Rifaximin short course x 3 days . . Problems: Consultation Date/Type/Reason Admit Date/Time Nov 15, 2016 at 16:43 Type of Consultation: ID Exam/Review of Systems Vital Signs Vitals Vital Signs Date Time Temp Pulse Resp B/P Pulse Ox O2 Delivery O2 Flow Rate FiO2 11/27/16 10:49 Nasal Cannula 3.0 11/27/16 08:18 97.3 92 16 113/55 95 Intake and Output 11/26/16 11/26/16 11/27/16 14:59 22:59 06:59 Intake Total 2320 ml 680 ml Balance 2320 ml 680 ml Results Result Diagram: 11/27/16 0505 11/27/16 0505 Results 24 hrs Laboratory Tests Test 11/27/16 05:05 White Blood Count 10.2 # Red Blood Count 3.44 L Hemoglobin 9.4 L Hematocrit 30.9 L Mean Corpuscular Volume 89.8 Mean Corpuscular Hemoglobin 27.3 L Mean Corpuscular Hemoglobin Concent 30.4 L Red Cell Distribution Width 15.9 H Platelet Count 495 H Mean Platelet Volume 9.2 Neutrophils % 58.1 Lymphocytes % 28.2 Monocytes % 11.1 H Eosinophils % 1.6 Basophils % 0.5 Nucleated Red Blood Cells % 0.0 Neutrophils # 5.9 Lymphocytes # 2.9 Monocytes # 1.1 H Eosinophils # 0.2 Basophils # 0.1 Nucleated Red Blood Cells # 0.0 Sodium Level 139 Potassium Level 4.4 Chloride Level 101 Carbon Dioxide Level 29 Anion Gap 13 Blood Urea Nitrogen 33 H Creatinine 0.95 Glucose Level 94 Calcium Level 9.1 Total Bilirubin 0.0 L Direct Bilirubin 0.00 Indirect Bilirubin 0.0 Aspartate Amino Transf (AST/SGOT) 25 Alanine Aminotransferase (ALT/SGPT) 31 Alkaline Phosphatase 76 Total Protein 7.0 Albumin 3.1 L Globulin 3.90 H Albumin/Globulin Ratio 0.79 Medications Medications Current Medications Ondansetron HCl (Zofran Inj) 4 mg Q6H PRN IV NAUSEA AND/OR VOMITING; Start 07/22 at 17:00 Acetaminophen (Tylenol Tab) 650 mg Q6H PRN PO PAIN LEVEL 1-3 OR FEVER; Start at 17:00 Acetaminophen/ Hydrocodone Bitart ([place] (5/325)) 1 tab Q6H PRN PO MODERATE PAIN LEVEL 4-6; Start 11/15/16 at 17:00 Morphine Sulfate (morphine) 2 mg Q4H PRN IV SEVERE PAIN LEVEL 7-10; Start 11/15 at 17:00 Sodium Biphosphate/ Sodium Phosphate (Fleet Enema) 133 ml DAILY PRN [place] CONSTIPATION; Start 11/15/16 at 17:00 Hydralazine HCl (Apresoline) 10 mg Q6H PRN IV ELEVATED BLOOD PRESSURE; Start at 17:00 Clonidine (Catapres) 0.1 mg Q6H PRN PO ELEVATED BLOOD PRESSURE; Start 11/15/16 at 17:00 Nitroglycerin (Nitroglycerin (Sl Tab) 0.4 Mg) 1 tab Q5M PRN SL ANGINA; Start at 17:00 Dorzolamide/ Timolol (Cosopt) 1 drop BID LEFT EYE Last administered on 08:47; Admin Dose 1 DROP; Start 11/15/16 at 21:00 Latanoprost (Xalatan) 1 drop DAILY LEFT EYE Last administered on 11/27/16 08: 53; Admin Dose 1 DROP; Start 11/16/16 at 09:00 Levothyroxine Sodium (Synthroid) 75 mcg DAILY PO Last administered on 08:45; Admin Dose 75 MCG; Start 11/16/16 at 09:00 Salmeterol Xinafoate/ Fluticasone (Advair 250/50 Diskus) 1 inh BID INH Last administered on 11/27/16 08:47; Admin Dose 1 INH; Start 11/15/16 at 21:00 Sertraline HCl (Zoloft) 100 mg QHS PO Last administered on 11/26/16 20:25; Admin Dose 100 MG; Start 11/15/16 at 21:00 Senna/Docusate Sodium (Senokot-S) 2 tab HS PO Last administered on 11/17/16 21 :03; Admin Dose 2 TAB; Start 11/16/16 at 21:00 Lactobacillus Acidophilus/ Rhamnosus (Culturelle) 1 cap BID PO Last administered on 11/27/16 08:46; Admin Dose 1 CAP; Start 11/17/16 at 09:00 Magnesium Hydroxide (Milk Of Mag) 30 ml BID PO Last administered on 11/21/16 08:42; Admin Dose 30 ML; Start 11/17/16 at 14:30 Bisacodyl (Dulcolax Supp) 10 mg DAILY PRN [place] CONSTIPATION; Start 11/17/16 at 14 :30 Mineral Oil (Fleet Mineral Oil Enema) 133 ml DAILY PRN [place] CONSTIPATION; Start 11/17/16 at 14:30 Acetaminophen/ Hydrocodone Bitart ([place] (10/325)) 1 tab Q4H PRN PO PAIN; Start 11/17/16 at 14:30 Zolpidem Tartrate (Ambien) 5 mg HS PRN PO INSOMNIA Last administered on 21:13; Admin Dose 5 MG; Start 11/18/16 at 15:00 Mirtazapine (Remeron) 7.5 mg BID PO Last administered on 11/27/16 08:45; Admin Dose 7.5 MG; Start 11/19/16 at 21:00 Pantoprazole (Protonix Tab) 40 mg DAILY@06 PO Last administered on 11/27/16 06 :04; Admin Dose 40 MG; Start 11/20/16 at 06:00 Furosemide (Lasix) 20 mg DAILY PO Last administered on 11/27/16 08:45; Admin Dose 20 MG; Start 11/24/16 at 09:00 Apixaban (Eliquis) 5 mg BID PO ; Start 11/27/16 at 21:00 Loperamide HCl (Imodium Cap) 2 mg Q4H PRN PO DIARRHEA Last administered on 11/27 16:01; Admin Dose 2 MG; Start 11/27/16 at 10:30 BRENT COLLINS NP Nov 27, 2016 18:31
[2016-11-27 20:24] VITALS: BP 117/63; RESP 16
[2016-11-27] MEDS: SERTRALINE 100 MG TAB PO SCH (20:36)
[2016-11-27] MEDS: SENNA/DOCUSATE NA (8.6MG/50MG) TAB PO SCH (20:37)
[2016-11-27] MEDS: RIFAXIMIN 200 MG TAB PO SCH ×2 (20:45→21:10)
[2016-11-27] MEDS: ZOLPIDEM 5 MG TAB PO PRN (21:10)
[2016-11-28 05:46] LABS: ADD SCAN DIFF NO
[2016-11-28] MEDS: PANTOPRAZOLE (EC) 40 MG TAB PO SCH (06:15)
[2016-11-28 06:16] LABS: CALCIUM 9.5 mg/dl (8.4-10.2); CREATININE 0.93 mg/dl (0.44-1.00); POTASSIUM 4.7 mmol/L (3.5-5.1)
[2016-11-28 06:38] LABS: BASOPHIL # 0.1 10^3/ul (0.0-0.1); BASOPHILS % 0.6 % (0.0-2.0); EOSINOPHILS # 0.2 10^3/ul (0.0-0.5); EOSINOPHILS % 2.3 % (0.0-7.0); HEMATOCRIT 32.2 % (37.0-47.0); HEMOGLOBIN 9.9 g/dl (12.0-16.0); LYMPHOCYTES # 2.8 10^3/ul (0.8-2.9); LYMPHOCYTES % 26.8 % (15.0-51.0); MEAN CORPUSCULAR HEMOGLOBIN 27.7 pg (29.0-33.0); MEAN CORPUSCULAR HGB CONC 30.7 g/dl (32.0-37.0); MEAN CORPUSCULAR VOLUME 90.2 fl (82.0-101.0); MEAN PLATELET VOLUME 9.3 fl (7.4-10.4); MONOCYTE # 1.1 10^3/ul (0.3-0.9); MONOCYTES % 10.7 % (0.0-11.0); NEUTROPHIL # 6.1 10^3/ul (1.6-7.5); NEUTROPHILS % 59.2 % (39.0-77.0); PLATELET COUNT 527 10^3/UL (140-415); RED BLOOD COUNT 3.57 10^6/ul (4.20-5.40); RED CELL DISTRIBUTION WIDTH 15.8 % (11.5-14.5); WHITE BLOOD COUNT 10.3 10^3/ul (4.8-10.8)
[2016-11-28 07:51] VITALS: BP 116/59; RESP 16
[2016-11-28] MEDS: MAGNESIUM HYDROXIDE 30ML CUP PO SCH ×2 (08:29→20:59)
[2016-11-28] MEDS: LEVOTHYROXINE 75 MCG TAB PO SCH (09:00)
[2016-11-28] MEDS: DORZOLAMIDE/TIMOLOL 10 ML OPH LEFT EYE SCH ×2 (09:00→20:58)
[2016-11-28] MEDS: SALMETEROL/FLUTICASONE 250/50 INHA INH SCH ×2 (09:00→20:58)
[2016-11-28] MEDS: APIXABAN 5 MG TABLET PO SCH ×2 (09:00→20:59)
[2016-11-28] MEDS: LACTOBACILLUS RHAMNOSUS CAP PO SCH ×2 (09:00→20:58)
[2016-11-28] MEDS: LATANOPROST 0.005% 2.5 ML OPH LEFT EYE SCH (09:00)
[2016-11-28] MEDS: RIFAXIMIN 200 MG TAB PO SCH ×3 (09:00→20:58)
[2016-11-28] MEDS: FUROSEMIDE 20 MG TAB PO SCH (09:01)
[2016-11-28] MEDS: MIRTAZAPINE 15 MG TAB PO SCH ×2 (09:01→20:59)
--- NOTE | 2016-11-28 09:43 | DS ---
Date/Time of Note Date/Time of Note DATE: 11/28/16 TIME: 09:38 Discharge Summary Admission/Discharge Info Admit Date/Time Nov 15, 2016 at 16:43 Discharge Date/Time Final Diagnosis 1. Acute hypoxic respiratory failure - improved, on 2 L O2 via [place] 2. Bilateral healthcare-associated pneumonia. 3. DVT -on anticoagulation 4. Deconditioning. 5. Urinary retention. 6. Constipation, obstruction. 7. Failure to thrive. 8. UTI Patient Condition: Stable Hospital Course 86-year-old female admitted from longterm with shortness of breath, fever, leukocytosis, abnormal x-ray consistent with healthcare-associated pneumonia. She seems to be improving with supportive care. Appreciate ID assistance. She received antibiotics for sepsis sec to PNA and UTI. Due to deconditioning, will still need to go to the SNF vs rehab, will need some possible bladder training and bowel or bladder care regimen. Daughter aware of the plan of care as well. Bilateral pleural effusion appears to be resolving on last CXR (11/22). Possible history of thoracentesis. Again, pt was tx for healthcare-associated pneumonia and no evidence of sepsis. Incidentally, found to have a lower extremity DVT. She is tolerating anticoagulation. However, management will not change. There is no tachypnea and the patient is tolerating anticoagulation. Her surgical care seems to be stable. She had surgery back in August for extensive loculated right lower quadrant abscess with small-bowel obstruction, with right lower quadrant transition point. The CAT scan this admission looks okay. She is tolerating diet, but appetite has been an issue. For her issue with appetite, it is probably multifactorial in nature, she is not burning a lot of calories. Ambulation and issues with anxiety, agitation and depression will be appreciated. She is on Remeron. Incidentally, the patient has a left thumb dislocation fracture, per ortho eval. Nonweightbearing. Seen by ortho team, not much improvement following a steroid injection into the flexor tendon issac of the left thumb. Repeated examination is showing persistent painless triggering of the left thumb. Possible further treatment with surgical release of the flexor issac was discussed with the patient. However, the patient is not willing to have any surgery on her thumb at this time. Further ortho followup would be on p.r.n. basis. She is also on loperamide and Rifaxamin now for diarrhea, negative c diff test. . . Home Meds Active Scripts Sennosides/Docusate Sodium (Senna Plus Tablet) 1 Each Tablet, 2 TAB PO HS for 28 Days, TAB Prov:LISA ENGLISH MD 11/22/16 Ondansetron Hcl* (Ondansetron Hcl* Inj) 4 Mg/2 Ml Vial, 4 MG IV Q6H Y for NAUSEA AND/OR VOMITING for 30 Days, VIAL Prov:LISA ENGLISH MD 11/22/16 Nitroglycerin* (Nitrostat*) 0.4 Mg Tab.subl, 1 TAB SL Q5M Y for ANGINA for 30 Days Prov:LISA ENGLISH MD 11/22/16 Hydralazine Hcl* (Apresoline* Pediatric Oral) 1 Mg/Ml (Compounded) Oral Solution , 10 MG IV Q6H Y for ELEVATED BLOOD PRESSURE for 28 Days Prov:LISA ENGLISH MD 11/22/16 Clonidine Hcl* (Catapres*) 0.1 Mg Tablet, 0.1 MG PO Q6H Y for ELEVATED BLOOD PRESSURE for 30 Days, TAB Prov:LISA ENGLISH MD 11/22/16 [Hydrocodone/Apap (10/325)] 1 TAB TAB No Conflict Check, 1 TAB PO Q4H Y for PAIN for 28 Days Prov:LISA ENGLISH MD 11/22/16 Hydrocodone Bit-Acetaminophen (Hydrocodone Bit-APAP) 5-325MG Tablet, 1 TAB PO Q6H Y for MODERATE PAIN LEVEL 4-6 for 28 Days, TAB Prov:LISA ENGLISH MD 11/22/16 Acetaminophen (MAPAP) 325 Mg Tablet, 650 MG PO Q6H Y for PAIN LEVEL 1-3 OR FEVER for 30 Days, TAB Prov:LISA ENGLISH MD 11/22/16 Morphine Sulfate (Morphine Sulfate) 2 Mg/Ml Soln, 2 MG IV Q4H Y for SEVERE PAIN LEVEL 7-10, #30 Prov:LISA ENGLISH MD 11/22/16 Mirtazapine* (Mirtazapine*) 15 Mg Tablet, 7.5 MG PO BID for 30 Days, TAB Prov:LISA ENGLISH MD 11/22/16 Zolpidem Tartrate (Ambien Hitesh) 5 Mg Tablet, 5 MG PO HS Y for INSOMNIA for 30 Days, TAB Prov:LISA ENGLISH MD 11/22/16 Bisacodyl* (Bisacodyl*) 10 Mg Supp, 10 MG DC DAILY Y for CONSTIPATION for 30 Days, SUPP Prov:LISA ENGLISH MD 11/22/16 Lactobacillus Rhamnosus* (Culturelle*) 1 Each Cap.sprink, 1 CAP PO BID for 30 Days, CAP Prov:LISA ENGLISH MD 11/22/16 Pantoprazole* (Pantoprazole*) 40 Mg Tablet.dr, 40 MG PO DAILY@06, #30 Prov:LISA ENGLISH MD 11/22/16 Apixaban* (Eliquis*) 5 Mg Tablet, 10 MG PO BID for 30 Days, TAB Prov:LISA ENGLISH MD 11/22/16 Levalbuterol* (Xopenex* HFA) 15 Gm Inha, 2 PUFFS INH Q4H Y for WHEEZING AND SOB , #1 INHALER Prov:LISA ENGLISH MD 11/22/16 Levofloxacin* (Levofloxacin*) 500 Mg Tablet, 500 MG PO DAILY, #3 TAB Prov:LISA ENGLISH MD 11/22/16 Reported Medications Lorazepam* (Lorazepam*) 0.5 Mg Tablet, 0.5 MG PO HS Y for ANXIETY, TAB 11/15/16 Atorvastatin Calcium* (Atorvastatin Calcium*) 20 Mg Tablet, 20 MG PO QHS, #30 TAB 11/15/16 Furosemide* (Furosemide*) 40 Mg Tablet, 40 MG PO DAILY, TAB 11/15/16 Sertraline Hcl* (Zoloft*) 100 Mg Tablet, 100 MG PO QHS, #30 TAB 09/29/16 Salmeterol Xinaf/Fluticasone* (Advair*) 250-50 Diskus Inhaler, 1 INH INH BID, INH 02/13/15 Dorzolamide-Timolol* (Cosopt*) 2%-0.5% Soln, 1 DROP LEFT EYE BID, BOTTLE 02/01/15 Latanoprost (Xalatan) 2.5 Ml Drops, 1 DROP LEFT EYE DAILY 02/01/15 Levothyroxine Sodium* (Levothyroxine Sodium*) 75 Mcg Tablet, 75 MCG PO DAILY, TAB 02/01/15 Pending Labs Laboratory Tests Test 11/28/16 05:23 White Blood Count 10.310^3/ul (4.8-10.8) Red Blood Count 3.5710^6/ul (4.20-5.40) Hemoglobin 9.9g/dl (12.0-16.0) Hematocrit 32.2% (37.0-47.0) Mean Corpuscular Volume 90.2fl (82.0-101.0) Mean Corpuscular Hemoglobin 27.7pg (29.0-33.0) Mean Corpuscular Hemoglobin Concent 30.7g/dl (32.0-37.0) Red Cell Distribution Width 15.8% (11.5-14.5) Platelet Count 21696^3/UL (140-415) Mean Platelet Volume 9.3fl (7.4-10.4) Neutrophils % 59.2% (39.0-77.0) Lymphocytes % 26.8% (15.0-51.0) Monocytes % 10.7% (0.0-11.0) Eosinophils % 2.3% (0.0-7.0) Basophils % 0.6% (0.0-2.0) Nucleated Red Blood Cells % 0.0/100WBC (0.0-0.0) Neutrophils # 6.110^3/ul (1.6-7.5) Lymphocytes # 2.810^3/ul (0.8-2.9) Monocytes # 1.110^3/ul (0.3-0.9) Eosinophils # 0.210^3/ul (0.0-0.5) Basophils # 0.110^3/ul (0.0-0.1) Nucleated Red Blood Cells # 0.010^3/ul (0.0-0.0) Sodium Level 136mmol/L (135-144) Potassium Level 4.7mmol/L (3.5-5.1) Chloride Level 101mmol/L (97-110) Carbon Dioxide Level 29mmol/L (21-31) Anion Gap 11 (8-16) Blood Urea Nitrogen 32mg/dl (7-20) Creatinine 0.93mg/dl (0.44-1.00) Glucose Level 100mg/dl (70-220) Calcium Level 9.5mg/dl (8.4-10.2) LUIS DANIEL MICHEL. Nov 28, 2016 09:43
[2016-11-28 19:57] VITALS: BP 109/60; RESP 20
--- NOTE | 2016-11-28 20:02 | CONS ---
Date/Time of Note Date/Time of Note DATE: 11/28/16 TIME: 19:57 Assessment/Plan Assessment/Plan Chief Complaint/Hosp Course ID PROGRESS NOTE =>OFF IV ABX 96H * *Started of Rifaxim 11/27/16 pm for persistent diarrhea post ABX (-)C.Diff s/p Levaquin, Diflucan, Vanco IV 24H INTERVAL SUMMARY * No diarrhea today after Rifaximin was started last night -- she feels her bowels "grumbling" with "lots of gas" -- overall improved with DC planning held due to the acute diarrhea. 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 s/p sepsis with fever and leukocytosis on admission = RESOLVED 2. S/p pneumonia, possibly aspiration. 3. S/p UTI. 4. 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 5. Urinary retention=>no acute issues 6. Frequent stools => ABX associated diarrhea w/(-)C.Diff toxin (-)MRSA NARES (+)VRE Stool colonization INVASIVES: * PIV ABX ALLERGIES: KNDA CURRENT ABX: OFF IV ABX 96H * *Started of Rifaxim 11/27/16 pm for persistent diarrhea post ABX (-)C.Diff ID RECOMMENDATIONS: Continue Pro-Biotics + Rifaximin short course x 3 days * May DC home tomorrow when cleared by primary . . . Problems: Consultation Date/Type/Reason Admit Date/Time Nov 15, 2016 at 16:43 Type of Consultation: ID Exam/Review of Systems Vital Signs Vitals Vital Signs Date Time Temp Pulse Resp B/P Pulse Ox O2 Delivery O2 Flow Rate FiO2 11/28/16 07:51 97.5 89 16 116/59 98 11/27/16 19:59 Nasal Cannula 2.0 Intake and Output 11/27/16 11/27/16 11/28/16 15:00 23:00 07:00 Intake Total 1320 ml 580 ml Output Total 700 ml Balance 620 ml 580 ml Results Result Diagram: 11/28/16 0523 11/28/16 0523 Results 24 hrs Laboratory Tests Test 11/28/16 05:23 White Blood Count 10.3 Red Blood Count 3.57 L Hemoglobin 9.9 L Hematocrit 32.2 L Mean Corpuscular Volume 90.2 Mean Corpuscular Hemoglobin 27.7 L Mean Corpuscular Hemoglobin Concent 30.7 L Red Cell Distribution Width 15.8 H Platelet Count 527 H Mean Platelet Volume 9.3 Neutrophils % 59.2 Lymphocytes % 26.8 Monocytes % 10.7 Eosinophils % 2.3 Basophils % 0.6 Nucleated Red Blood Cells % 0.0 Neutrophils # 6.1 Lymphocytes # 2.8 Monocytes # 1.1 H Eosinophils # 0.2 Basophils # 0.1 Nucleated Red Blood Cells # 0.0 Sodium Level 136 Potassium Level 4.7 Chloride Level 101 Carbon Dioxide Level 29 Anion Gap 11 Blood Urea Nitrogen 32 H Creatinine 0.93 Glucose Level 100 Calcium Level 9.5 Medications Medications Current Medications Ondansetron HCl (Zofran Inj) 4 mg Q6H PRN IV NAUSEA AND/OR VOMITING; Start 07/22 at 17:00 Acetaminophen (Tylenol Tab) 650 mg Q6H PRN PO PAIN LEVEL 1-3 OR FEVER; Start at 17:00 Acetaminophen/ Hydrocodone Bitart ([place] (5/325)) 1 tab Q6H PRN PO MODERATE PAIN LEVEL 4-6; Start 11/15/16 at 17:00 Morphine Sulfate (morphine) 2 mg Q4H PRN IV SEVERE PAIN LEVEL 7-10; Start 11/15 at 17:00 Sodium Biphosphate/ Sodium Phosphate (Fleet Enema) 133 ml DAILY PRN [place] CONSTIPATION; Start 11/15/16 at 17:00 Hydralazine HCl (Apresoline) 10 mg Q6H PRN IV ELEVATED BLOOD PRESSURE; Start at 17:00 Clonidine (Catapres) 0.1 mg Q6H PRN PO ELEVATED BLOOD PRESSURE; Start 11/15/16 at 17:00 Nitroglycerin (Nitroglycerin (Sl Tab) 0.4 Mg) 1 tab Q5M PRN SL ANGINA; Start at 17:00 Dorzolamide/ Timolol (Cosopt) 1 drop BID LEFT EYE Last administered on 09:00; Admin Dose 1 DROP; Start 11/15/16 at 21:00 Latanoprost (Xalatan) 1 drop DAILY LEFT EYE Last administered on 11/28/16 09: 00; Admin Dose 1 DROP; Start 11/16/16 at 09:00 Levothyroxine Sodium (Synthroid) 75 mcg DAILY PO Last administered on 09:00; Admin Dose 75 MCG; Start 11/16/16 at 09:00 Salmeterol Xinafoate/ Fluticasone (Advair 250/50 Diskus) 1 inh BID INH Last administered on 11/28/16 09:00; Admin Dose 1 INH; Start 11/15/16 at 21:00 Sertraline HCl (Zoloft) 100 mg QHS PO Last administered on 11/27/16 20:36; Admin Dose 100 MG; Start 11/15/16 at 21:00 Senna/Docusate Sodium (Senokot-S) 2 tab HS PO Last administered on 11/17/16 21 :03; Admin Dose 2 TAB; Start 11/16/16 at 21:00 Lactobacillus Acidophilus/ Rhamnosus (Culturelle) 1 cap BID PO Last administered on 11/28/16 09:00; Admin Dose 1 CAP; Start 11/17/16 at 09:00 Magnesium Hydroxide (Milk Of Mag) 30 ml BID PO Last administered on 11/21/16 08:42; Admin Dose 30 ML; Start 11/17/16 at 14:30 Bisacodyl (Dulcolax Supp) 10 mg DAILY PRN [place] CONSTIPATION; Start 11/17/16 at 14 :30 Mineral Oil (Fleet Mineral Oil Enema) 133 ml DAILY PRN [place] CONSTIPATION; Start 11/17/16 at 14:30 Acetaminophen/ Hydrocodone Bitart ([place] (10/325)) 1 tab Q4H PRN PO PAIN; Start 11/17/16 at 14:30 Zolpidem Tartrate (Ambien) 5 mg HS PRN PO INSOMNIA Last administered on 21:10; Admin Dose 5 MG; Start 4/15/17 at 15:00 Mirtazapine (Remeron) 7.5 mg BID PO Last administered on 11/28/16 09:01; Admin Dose 7.5 MG; Start 11/19/16 at 21:00 Pantoprazole (Protonix Tab) 40 mg DAILY@06 PO Last administered on 11/28/16 06 :15; Admin Dose 40 MG; Start 11/20/16 at 06:00 Furosemide (Lasix) 20 mg DAILY PO Last administered on 11/28/16 09:01; Admin Dose 20 MG; Start 11/24/16 at 09:00 Apixaban (Eliquis) 5 mg BID PO Last administered on 11/28/16 09:00; Admin Dose 5 MG; Start 11/27/16 at 21:00 Loperamide HCl (Imodium Cap) 2 mg Q4H PRN PO DIARRHEA Last administered on 11/27 16:01; Admin Dose 2 MG; Start 11/27/16 at 10:30 Rifaximin (Xifaxan) 200 mg TID PO Last administered on 11/28/16 12:11; Admin Dose 200 MG; Start 11/27/16 at 21:00; Stop 11/30/16 at 23:00 BRENT COLLINS NP Nov 28, 2016 20:02
[2016-11-28] MEDS: SERTRALINE 100 MG TAB PO SCH (20:58)
[2016-11-28] MEDS: ZOLPIDEM 5 MG TAB PO PRN (20:58)
[2016-11-28] MEDS: SENNA/DOCUSATE NA (8.6MG/50MG) TAB PO SCH (20:59)
[2016-11-29] MEDS: PANTOPRAZOLE (EC) 40 MG TAB PO SCH (06:14)
[2016-11-29 07:29] VITALS: BP 124/75; RESP 18
[2016-11-29] MEDS: MAGNESIUM HYDROXIDE 30ML CUP PO SCH ×2 (08:36→20:58)
[2016-11-29] MEDS: APIXABAN 5 MG TABLET PO SCH ×2 (08:41→20:57)
[2016-11-29] MEDS: LACTOBACILLUS RHAMNOSUS CAP PO SCH ×2 (08:41→20:56)
[2016-11-29] MEDS: LEVOTHYROXINE 75 MCG TAB PO SCH (08:41)
[2016-11-29] MEDS: RIFAXIMIN 200 MG TAB PO SCH ×3 (08:41→21:06)
[2016-11-29] MEDS: MIRTAZAPINE 15 MG TAB PO SCH ×2 (08:41→20:56)
[2016-11-29] MEDS: FUROSEMIDE 20 MG TAB PO SCH (08:42)
[2016-11-29] MEDS: DORZOLAMIDE/TIMOLOL 10 ML OPH LEFT EYE SCH ×2 (08:42→20:58)
[2016-11-29] MEDS: SALMETEROL/FLUTICASONE 250/50 INHA INH SCH ×2 (08:42→20:58)
[2016-11-29] MEDS: LATANOPROST 0.005% 2.5 ML OPH LEFT EYE SCH (08:43)
[2016-11-29] MEDS: HYDROCODONE/APAP (5/325) TAB PO PRN ×3 (09:07→21:30)
--- NOTE | 2016-11-29 09:59 | PN ---
Date/Time of Note Date/Time of Note DATE: 11/29/16 TIME: 09:58 Assessment/Plan VTE Prophylaxis VTE Prophylaxis Intervention: other (Eliquis) Lines/Catheters IV [facility] Type [facility]from [facility] Urinary Cath still in place: No Assessment/Plan Chief Complaint/Hosp Course A/P: 86-year-old female admitted from intermediate with shortness of breath, fever, leukocytosis, abnormal x-ray consistent with healthcare-associated pneumonia. 1. Bilateral Pneumonia with recurrent bilateral pleural effusions R>L - appears resolved now, but some mild SOB today, off abx now. Status post thoracentesis on 10/04/2016 - CXR x 1 today * f/u ID rec's 2. Acute deep vein thrombosis of the left common femoral vein and popliteal vein. - Continue anticoagulation Eliquis. 3. Acute respiratory failure - improving - Most probably secondary to underlying healthcare-associated pneumonia. - continue O2, again CXR x 1 today - 20 mg lasix daily 4. Chronic obstructive pulmonary disease: s/p exacerbation but improved. - Continue inhaled bronchodilators and wean off supplemental oxygen. 5. 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 Possible further treatment with surgical release of the flexor issac was discussed with the patient and ortho, but apparently she is declining surgery. - f/u ortho rec's 6. Hx of abd abscesses Status post exploratory laparotomy and abdominal washout with a small bowel resection x2 on 09/20/2016. 7. Reported hx of Irritable bowel syndrome. Continue to monitor. 8. Chronic Depression. 9. Anemia, most probably anemia of chronic disease 10. Hypothyroidism: stable 11. Dyslipidemia with low HDL 12. weakness - Continue in-house PT Dispo: Long family conference held yesterday with SW, CM, ARU team and myself. Daughter had lots of questions, and current plan is for attempt for d/c [facility] (no [facility] available presently), and if no bed available today - plan for d/c home with FWW, 3:1 commode, HHPT, HH nursing. She seems to be improving with supportive care. Appreciate ID assistance. She received antibiotics for sepsis sec to PNA and UTI. Due to deconditioning, will still need to go to the SNF vs rehab, will need some possible bladder training and bowel or bladder care regimen. Daughter aware of the plan of care as well. Bilateral pleural effusion appears to be resolving on last CXR (11/22). Possible history of thoracentesis. Again, pt was tx for healthcare-associated pneumonia and no evidence of sepsis. Incidentally, found to have a lower extremity DVT. She is tolerating anticoagulation. However, management will not change. There is no tachypnea and the patient is tolerating anticoagulation. Her surgical care seems to be stable. She had surgery back in August for extensive loculated right lower quadrant abscess with small-bowel obstruction, with right lower quadrant transition point. The CAT scan this admission looks okay. She is tolerating diet, but appetite has been an issue. For her issue with appetite, it is probably multifactorial in nature, she is not burning a lot of calories. Ambulation and issues with anxiety, agitation and depression will be appreciated. She is on Remeron. Incidentally, the patient has a left thumb dislocation fracture, per ortho eval. Nonweightbearing. Seen by ortho team, not much improvement following a steroid injection into the flexor tendon issac of the left thumb. Repeated examination is showing persistent painless triggering of the left thumb. Possible further treatment with surgical release of the flexor issac was discussed with the patient. However, the patient is not willing to have any surgery on her thumb at this time. Further ortho followup would be on p.r.n. basis. She is also on loperamide and Rifaxamin now for diarrhea, negative c diff test. . . Problems: Subjective 24 Hr Interval Summary Free Text/Dictation D/C held as family meeting was performed yesterday b/c daughter of pt had questions about placement. Pt with some mild SOB today. Exam/Review of Systems Vital Signs Vitals Vital Signs Date Time Temp Pulse Resp B/P Pulse Ox O2 Delivery O2 Flow Rate FiO2 11/29/16 07:29 97.5 95 18 124/75 90 11/27/16 19:59 Nasal Cannula 2.0 Intake and Output 11/28/16 11/28/16 11/29/16 15:00 23:00 07:00 Intake Total 470 ml Output Total 300 ml Balance 170 ml Exam Constitutional: alert, oriented Neck: non-tender, supple Respiratory: left sided mild rhonchi, otherwise nL normal air movement Cardiovascular: nl pulses, regular rate and rhythm Gastrointestinal: nl liver, spleen, non-tender, soft Results Result Diagram: 11/28/1652211/28/16522 Medications Medications Current Medications Ondansetron HCl (Zofran Inj) 4 mg Q6H PRN IV NAUSEA AND/OR VOMITING; Start 07/22 at 17:00 Acetaminophen (Tylenol Tab) 650 mg Q6H PRN PO PAIN LEVEL 1-3 OR FEVER; Start at 17:00 Acetaminophen/ Hydrocodone Bitart ([place] (5/325)) 1 tab Q6H PRN PO MODERATE PAIN LEVEL 4-6 Last administered on 11/29/16 09:07; Admin Dose 1 TAB; Start 07/22 at 17:00 Morphine Sulfate (morphine) 2 mg Q4H PRN IV SEVERE PAIN LEVEL 7-10; Start 11/15 at 17:00 Sodium Biphosphate/ Sodium Phosphate (Fleet Enema) 133 ml DAILY PRN [place] CONSTIPATION; Start 11/15/16 at 17:00 Hydralazine HCl (Apresoline) 10 mg Q6H PRN IV ELEVATED BLOOD PRESSURE; Start at 17:00 Clonidine (Catapres) 0.1 mg Q6H PRN PO ELEVATED BLOOD PRESSURE; Start 11/15/16 at 17:00 Nitroglycerin (Nitroglycerin (Sl Tab) 0.4 Mg) 1 tab Q5M PRN SL ANGINA; Start at 17:00 Dorzolamide/ Timolol (Cosopt) 1 drop BID LEFT EYE Last administered on 08:42; Admin Dose 1 DROP; Start 11/15/16 at 21:00 Latanoprost (Xalatan) 1 drop DAILY LEFT EYE Last administered on 11/29/16 08: 43; Admin Dose 1 DROP; Start 11/16/16 at 09:00 Levothyroxine Sodium (Synthroid) 75 mcg DAILY PO Last administered on 08:41; Admin Dose 75 MCG; Start 11/16/16 at 09:00 Salmeterol Xinafoate/ Fluticasone (Advair 250/50 Diskus) 1 inh BID INH Last administered on 11/29/16 08:42; Admin Dose 1 INH; Start 11/15/16 at 21:00 Sertraline HCl (Zoloft) 100 mg QHS PO Last administered on 11/28/16 20:58; Admin Dose 100 MG; Start 11/15/16 at 21:00 Senna/Docusate Sodium (Senokot-S) 2 tab HS PO Last administered on 11/17/16 21 :03; Admin Dose 2 TAB; Start 11/16/16 at 21:00 Lactobacillus Acidophilus/ Rhamnosus (Culturelle) 1 cap BID PO Last administered on 11/29/16 08:41; Admin Dose 1 CAP; Start 11/17/16 at 09:00 Magnesium Hydroxide (Milk Of Mag) 30 ml BID PO Last administered on 11/21/16 08:42; Admin Dose 30 ML; Start 11/17/16 at 14:30 Bisacodyl (Dulcolax Supp) 10 mg DAILY PRN [place] CONSTIPATION; Start 11/17/16 at 14 :30 Mineral Oil (Fleet Mineral Oil Enema) 133 ml DAILY PRN [place] CONSTIPATION; Start 11/17/16 at 14:30 Acetaminophen/ Hydrocodone Bitart ([place] (10/325)) 1 tab Q4H PRN PO PAIN; Start 11/17/16 at 14:30 Zolpidem Tartrate (Ambien) 5 mg HS PRN PO INSOMNIA Last administered on 20:58; Admin Dose 5 MG; Start 11/18/16 at 15:00 Mirtazapine (Remeron) 7.5 mg BID PO Last administered on 11/29/16 08:41; Admin Dose 7.5 MG; Start 11/19/16 at 21:00 Pantoprazole (Protonix Tab) 40 mg DAILY@06 PO Last administered on 11/29/16 06 :14; Admin Dose 40 MG; Start 11/20/16 at 06:00 Furosemide (Lasix) 20 mg DAILY PO Last administered on 11/29/16 08:42; Admin Dose 20 MG; Start 11/24/16 at 09:00 Apixaban (Eliquis) 5 mg BID PO Last administered on 11/29/16 08:41; Admin Dose 5 MG; Start 11/27/16 at 21:00 Loperamide HCl (Imodium Cap) 2 mg Q4H PRN PO DIARRHEA Last administered on 11/27 16:01; Admin Dose 2 MG; Start 11/27/16 at 10:30 Rifaximin (Xifaxan) 200 mg TID PO Last administered on 11/29/16 08:41; Admin Dose 200 MG; Start 11/27/16 at 21:00; Stop 11/30/16 at 23:00 LUIS DANIEL MICHEL Nov 29, 2016 09:59
--- NOTE | 2016-11-29 10:42 | RADRPT ---
PROCEDURE: XR Chest 1 View. CLINICAL INDICATION: Shortness of breath. TECHNIQUE: AP view of the chest was obtained. COMPARISON: November 22, 2016 FINDINGS: The heart size is within normal limits. Calcified atherosclerosis is noted in the aorta. The lungs are hyperexpanded. Diffuse mild interstitial prominence is seen in both lungs. Patchy scarring vers us minimal infiltrates in the bilateral upper lobes are stable. No pneumothorax is seen. Osseous st ructures are intact. IMPRESSION: Calcified atherosclerosis in the aorta. Stable patchy scarring versus minimal infiltrates in the bilateral upper lobes. Hyperexpanded lungs with diffuse mild interstitial prominence in both lungs. Interstitial prominenc e could be chronic. Findings could reflect COPD. Interval resolution in lower lobe infiltrates. RPTAT: AA .Rogelio Daniels MD, Date Time Electronically viewed and signed by .Rogelio Daniels MD, on 11/29/2016 10:42 .P/
[2016-11-29 16:59] LABS: ADD UMIC YES; URINE BILIRUBIN (Dip) NEGATIVE (NEGATIVE); URINE BLOOD (Dip) NEGATIVE (NEGATIVE); URINE COLOR DK. YELLOW (YELLOW); URINE GLUCOSE (Dip) NEGATIVE (NEGATIVE); URINE KETONES (Dip) NEGATIVE (NEGATIVE); URINE LEUKOCYTE ESTERASE (Dip) 2+ (NEGATIVE); URINE NITRITE (Dip) NEGATIVE (NEGATIVE); URINE TOTAL PROTEIN (Dip) NEGATIVE (NEGATIVE); URINE UROBILINOGEN (Dip) 0.2 E.U./dL (0.1-1.0)
[2016-11-29 17:22] LABS: SQUAMOUS EPITHELIAL CELL,UR MODERATE; URINE RBCS NONE SEEN /HPF (0)
[2016-11-29 20:17] VITALS: BP 131/56; RESP 18
[2016-11-29] MEDS: SENNA/DOCUSATE NA (8.6MG/50MG) TAB PO SCH (20:57)
[2016-11-29] MEDS: SERTRALINE 100 MG TAB PO SCH (20:57)
[2016-11-29] MEDS: ZOLPIDEM 5 MG TAB PO PRN (21:10)
[2016-11-30] MEDS: PANTOPRAZOLE (EC) 40 MG TAB PO SCH (05:54)
[2016-11-30 08:13] VITALS: BP 125/70; RESP 18
[2016-11-30] MEDS: MAGNESIUM HYDROXIDE 30ML CUP PO SCH (09:00)
[2016-11-30] MEDS: SALMETEROL/FLUTICASONE 250/50 INHA INH SCH (09:10)
[2016-11-30] MEDS: RIFAXIMIN 200 MG TAB PO SCH (09:11)
[2016-11-30] MEDS: LATANOPROST 0.005% 2.5 ML OPH LEFT EYE SCH (09:11)
[2016-11-30] MEDS: DORZOLAMIDE/TIMOLOL 10 ML OPH LEFT EYE SCH (09:11)
[2016-11-30] MEDS: LACTOBACILLUS RHAMNOSUS CAP PO SCH (09:12)
[2016-11-30] MEDS: MIRTAZAPINE 15 MG TAB PO SCH (09:12)
[2016-11-30] MEDS: APIXABAN 5 MG TABLET PO SCH (09:13)
[2016-11-30] MEDS: LEVOTHYROXINE 75 MCG TAB PO SCH (09:13)
[2016-11-30] MEDS: LOPERAMIDE 2 MG CAP PO PRN (09:21)
[2016-11-30] MEDS: HYDROCODONE/APAP (5/325) TAB PO PRN (09:22)
[2016-11-30] MEDS: FUROSEMIDE 20 MG TAB PO SCH (09:26)
--- NOTE | 2016-11-30 10:16 | DS ---
Date/Time of Note Date/Time of Note DATE: 11/30/16 TIME: 10:15 Discharge Summary Admission/Discharge Info Admit Date/Time Nov 15, 2016 at 16:43 Discharge Date/Time Final Diagnosis 1. Acute hypoxic respiratory failure - improved, on 2 L O2 via [place] 2. Bilateral healthcare-associated pneumonia. 3. DVT -on anticoagulation 4. Deconditioning. 5. Urinary retention. 6. Constipation, obstruction. 7. Failure to thrive. 8. UTI Hospital Course 86-year-old female admitted from [facility] with shortness of breath, fever, leukocytosis, abnormal x-ray consistent with healthcare-associated pneumonia. She seems to be improving with supportive care. Appreciate ID assistance. She received antibiotics for sepsis sec to PNA and UTI. Due to deconditioning, will still need to go to the SNF vs rehab, will need some possible bladder training and bowel or bladder care regimen. Daughter aware of the plan of care as well. Bilateral pleural effusion appears to be resolving on last CXR (11/22). Possible history of thoracentesis. Again, pt was tx for healthcare-associated pneumonia and no evidence of sepsis. Incidentally, found to have a lower extremity DVT. She is tolerating anticoagulation. However, management will not change. There is no tachypnea and the patient is tolerating anticoagulation. Her surgical care seems to be stable. She had surgery back in August for extensive loculated right lower quadrant abscess with small-bowel obstruction, with right lower quadrant transition point. The CAT scan this admission looks okay. She is tolerating diet, but appetite has been an issue. For her issue with appetite, it is probably multifactorial in nature, she is not burning a lot of calories. Ambulation and issues with anxiety, agitation and depression will be appreciated. She is on Remeron. Incidentally, the patient has a left thumb dislocation fracture, per ortho eval. Nonweightbearing. Seen by ortho team, not much improvement following a steroid injection into the flexor tendon issac of the left thumb. Repeated examination is showing persistent painless triggering of the left thumb. Possible further treatment with surgical release of the flexor issac was discussed with the patient. However, the patient is not willing to have any surgery on her thumb at this time. Further ortho followup would be on p.r.n. basis. She is also on loperamide and Rifaxamin now for diarrhea, negative c diff test. . . Home Meds Active Scripts Sennosides/Docusate Sodium (Senna Plus Tablet) 1 Each Tablet, 2 TAB PO HS for 28 Days, TAB Prov:LISA ENGLISH MD 11/22/16 Ondansetron Hcl* (Ondansetron Hcl* Inj) 4 Mg/2 Ml Vial, 4 MG IV Q6H Y for NAUSEA AND/OR VOMITING for 30 Days, VIAL Prov:LISA ENGLISH MD 11/22/16 Nitroglycerin* (Nitrostat*) 0.4 Mg Tab.subl, 1 TAB SL Q5M Y for ANGINA for 30 Days Prov:LISA ENGLISH MD 11/22/16 Hydralazine Hcl* (Apresoline* Pediatric Oral) 1 Mg/Ml (Compounded) Oral Solution , 10 MG IV Q6H Y for ELEVATED BLOOD PRESSURE for 28 Days Prov:LISA ENGLISH MD 11/22/16 Clonidine Hcl* (Catapres*) 0.1 Mg Tablet, 0.1 MG PO Q6H Y for ELEVATED BLOOD PRESSURE for 30 Days, TAB Prov:LISA ENGLISH MD 11/22/16 [Hydrocodone/Apap (10/325)] 1 TAB TAB No Conflict Check, 1 TAB PO Q4H Y for PAIN for 28 Days Prov:LISA ENGLISH MD 11/22/16 Hydrocodone Bit-Acetaminophen (Hydrocodone Bit-APAP) 5-325MG Tablet, 1 TAB PO Q6H Y for MODERATE PAIN LEVEL 4-6 for 28 Days, TAB Prov:LISA ENGLISH MD 11/22/16 Acetaminophen (MAPAP) 325 Mg Tablet, 650 MG PO Q6H Y for PAIN LEVEL 1-3 OR FEVER for 30 Days, TAB Prov:LISA ENGLISH MD 11/22/16 Morphine Sulfate (Morphine Sulfate) 2 Mg/Ml Soln, 2 MG IV Q4H Y for SEVERE PAIN LEVEL 7-10, #30 Prov:LISA ENGLISH MD 11/22/16 Mirtazapine* (Mirtazapine*) 15 Mg Tablet, 7.5 MG PO BID for 30 Days, TAB Prov:LISA ENGLISH MD 11/22/16 Zolpidem Tartrate (Ambien Hitesh) 5 Mg Tablet, 5 MG PO HS Y for INSOMNIA for 30 Days, TAB Prov:LISA ENGLISH MD 11/22/16 Bisacodyl* (Bisacodyl*) 10 Mg Supp, 10 MG NM DAILY Y for CONSTIPATION for 30 Days, SUPP Prov:LISA ENGLISH MD 11/22/16 Lactobacillus Rhamnosus* (Culturelle*) 1 Each Cap.sprink, 1 CAP PO BID for 30 Days, CAP Prov:LISA ENGLISH MD 11/22/16 Pantoprazole* (Pantoprazole*) 40 Mg Tablet.dr, 40 MG PO DAILY@06, #30 Prov:LISA ENGLISH MD 11/22/16 Apixaban* (Eliquis*) 5 Mg Tablet, 10 MG PO BID for 30 Days, TAB Prov:LISA ENGLISH MD 11/22/16 Levalbuterol* (Xopenex* HFA) 15 Gm Inha, 2 PUFFS INH Q4H Y for WHEEZING AND SOB , #1 INHALER Prov:LISA ENGLISH MD 11/22/16 Levofloxacin* (Levofloxacin*) 500 Mg Tablet, 500 MG PO DAILY, #3 TAB Prov:LISA ENGLISH MD 11/22/16 Reported Medications Lorazepam* (Lorazepam*) 0.5 Mg Tablet, 0.5 MG PO HS Y for ANXIETY, TAB 11/15/16 Atorvastatin Calcium* (Atorvastatin Calcium*) 20 Mg Tablet, 20 MG PO QHS, #30 TAB 11/15/16 Furosemide* (Furosemide*) 40 Mg Tablet, 40 MG PO DAILY, TAB 11/15/16 Sertraline Hcl* (Zoloft*) 100 Mg Tablet, 100 MG PO QHS, #30 TAB 09/29/16 Salmeterol Xinaf/Fluticasone* (Advair*) 250-50 Diskus Inhaler, 1 INH INH BID, INH 02/13/15 Dorzolamide-Timolol* (Cosopt*) 2%-0.5% Soln, 1 DROP LEFT EYE BID, BOTTLE 02/01/15 Latanoprost (Xalatan) 2.5 Ml Drops, 1 DROP LEFT EYE DAILY 02/01/15 Levothyroxine Sodium* (Levothyroxine Sodium*) 75 Mcg Tablet, 75 MCG PO DAILY, TAB 02/01/15 Pending Labs Laboratory Tests Test 11/29/16 16:40 Urine Color DK. YELLOW (YELLOW) Urine Clarity SLIGHTLY CLOUDY (CLEAR) Urine pH 6.0 (5.0-9.0) Urine Specific [place] 1.025 (1.003-1.030) Urine Ketones NEGATIVE (NEGATIVE) Urine Nitrite NEGATIVE (NEGATIVE) Urine Bilirubin NEGATIVE (NEGATIVE) Urine Urobilinogen 0.2 E.U./dL (0.1-1.0) Urine Leukocyte Esterase 2+ (NEGATIVE) Urine Microscopic RBC NONE SEEN/HPF (0) Urine Microscopic WBC 5-10/HPF (0) Urine Squamous Epithelial Cells MODERATE Urine Hemoglobin NEGATIVE (NEGATIVE) Urine Glucose NEGATIVE% (NEGATIVE) Urine Total Protein NEGATIVE (NEGATIVE) LUIS DANIEL MICHEL Nov 30, 2016 10:16
[2016-11-30] MEDS ORDERED: APIX5TAB PO (10:21)
[2016-11-30] MEDS ORDERED: RIFA200T3 PO (10:21)
[2016-11-30] MEDS ORDERED: LAS20 PO (10:21)
[2016-11-30] MEDS ORDERED: IMO2 PO (10:21)
== END 2016-11-30 13:00 | disposition home health service (06) | DRG 871 ==
LOC: E/R 13:15 → MS4 16:43 → PP2 11-20 06:53 → MS2 11-20 21:20
PROVIDERS: ADMIT Internal Medicine; ATTEND Internal Medicine
DX: A41.9 Sepsis, unspecified organism (principal); J18.9 Pneumonia, unspecified organism; J96.01 Acute respiratory failure with hypoxia; J69.0 Pneumonitis due to inhalation of food and vomit; I50.31 Acute diastolic (congestive) heart failure; J44.0 Chronic obstructive pulmonary disease with (acute) lower respiratory infection; I82.412 Acute embolism and thrombosis of left femoral vein; I82.432 Acute embolism and thrombosis of left popliteal vein; I82.403 Acute embolism and thrombosis of unspecified deep veins of lower extremity, bilateral; N39.0 Urinary tract infection, site not specified; I10 Essential (primary) hypertension; Z87.891 Personal history of nicotine dependence; D63.8 Anemia in other chronic diseases classified elsewhere; K59.00 Constipation, unspecified; K58.9 Irritable bowel syndrome, unspecified; R62.7 Adult failure to thrive; R45.1 Restlessness and agitation; E78.5 Hyperlipidemia, unspecified; E03.9 Hypothyroidism, unspecified; R33.9 Retention of urine, unspecified; F32.9 Major depressive disorder, single episode, unspecified; F41.9 Anxiety disorder, unspecified; M19.042 Primary osteoarthritis, left hand; M65.842 Other synovitis and tenosynovitis, left hand; Z90.49 Acquired absence of other specified parts of digestive tract; Y95 Nosocomial condition; Z79.01 Long term (current) use of anticoagulants; Z99.81 Dependence on supplemental oxygen
CPT/HCPCS: 36415; 71010; 71250; 73140; 80048; 80053; 80061; 80202; 81001; 81003; 83036; 83605; 83735; 83880; 84100; 84134; 84145; 84439; 84443; 84484; 85025; 85610; 85730; 87040; 87075; 87081; 87086; 92610; 93005; 93306; 93970; 96374; 96375; 97110; 97116; 97164; 97530; J1940; A4310; C9113; J0692; J0702; J2060; J3370; J3475; J7030; J7040